=== PATIENT | female | born 1945 | race Caucasian/White ===

== ENCOUNTER 2020-05-10 | Outpatient (REF) | payer MEDICARE, SELFPAY | END 2020-05-10 00:01 | disposition home or self-care (01) | LOC: HO.VC | PROVIDERS: Visit Provider Internal Medicine | DX: Z23 Encounter for immunization (principal) | CPT/HCPCS: 0011A ==

== ENCOUNTER 2020-05-29 10:03 | Outpatient (REF) | payer MEDICARE, SELFPAY ==
[2020-05-29 10:46] LABS: MANUAL DIFF FLAG NO
[2020-05-29 10:58] LABS: Basophils Absolute Auto 0.1 X10*3/uL (0.0-0.2); Basophils Percent Auto 0.9 % (0-2); Eosinophils Absolute Auto 0.1 X10*3/uL (0.0-0.4); Eosinophils Percent Auto 1.4 % (0-4); Hematocrit 43.1 % (37-47); Hemoglobin 13.5 g/dl (12.0-16.0); Imm Gran Abs Auto 0.02 X10*3/uL (0.00-0.03); Imm Gran Pct Auto 0.3 % (0.0-0.4); Lymphocytes Absolute Auto 1.4 X10*3/uL (1.2-4.9); Lymphocytes Percent Auto 23.7 % (20-40); Mean Corpuscular HGB Conc 31.3 g/dl (31.0-35.0); Mean Corpuscular Hemoglobin 26.2 pg (27.0-33.0); Mean Corpuscular Volume 83.5 fL (80-98); Mean Platelet Volume 11.4 fL (9.4-12.3); Monocytes Absolute Auto 0.5 X10*3/uL (0.1-1.2); Monocytes Percent Auto 8.1 % (2-11); Neutrophils Absolute Auto 3.8 X10*3/uL (2.0-8.3); Neutrophils Percent Auto 65.6 % (45-73); Platelet Count 267 X10*3/uL (160-400); Red Blood Count 5.16 X10*6/uL (4.20-5.50); Red Cell Distribution Width 14.5 % (11.0-16.0); White Blood Count 5.8 X10*3/uL (4.8-10.8)
[2020-05-29 11:26] LABS: Alanine Aminotransferase 11 U/L (0-31); Alkaline Phosphatase 83 U/L (39-117); Anion Gap 14 (12-20); Aspartate Amino Transferase 15 U/L (5-31); Bilirubin Total 0.6 mg/dL (0.0-1.0); Blood Urea Nitrogen 19 mg/dL (9-16); Calcium 9.3 mg/dL (8.4-10.2); Carbon Dioxide 27 mmol/L (22-29); Chloride 106 mmol/L (96-108); Cholesterol 158 mg/dL; Estimated Glomerular Filt Rate > 60; Glucose Random 90 mg/dL (60-115); HDL Cholesterol 61 mg/dL; LDL Cholesterol Calculated 75 mg/dl; Potassium 4.5 mmol/L (3.3-5.1); Sodium 142 mmol/L (135-145); Total Protein 7.2 g/dL (6.5-8.0); Triglycerides 111 mg/dL
[2020-05-29 11:42] LABS: Thyroid Stimulating Hormone 0.39 uIU/mL (0.32-4.0); Vitamin D 25-OH Total 21.5 ng/mL (>30)
[2020-05-29 11:54] LABS: Glucose Urine UA NEG (NEG); Leukocyte Esterase Urine NEG (NEG); Nitrite Urine NEG (NEG); Urine Blood NEG (NEG); Urine Ketones NEG (NEG); Urine Protein NEG (NEG-TRACE)
[2020-05-29 12:00] LABS: Appearance Urine CLEAR; Color Urine YELLOW
[2020-05-29 12:19] LABS: Mucus Urine TRACE /LPF; RBC Urine 0 /HPF (0); Renal Epithelial Cells Urine TRACE /LPF; Squamous Epithelial Cell Urine TRACE /LPF; WBC Urine 0 /HPF (0-4)
[2020-06-02 04:35] LABS: Folate 7.8 ng/mL (> or = 4.0); Vitamin B12 295 pg/mL (200-900)
== END 2020-05-29 10:04 | disposition home or self-care (01) ==
LOC: HO.LAB 10:03
PROVIDERS: PCP Internal Medicine; Visit Provider Internal Medicine
DX: I10 Essential (primary) hypertension (principal); E78.00 Pure hypercholesterolemia, unspecified; R41.89 Other symptoms and signs involving cognitive functions and awareness
CPT/HCPCS: 36415; 80053; 80061; 81001; 82306; 82607; 82746; 84439; 84443; 85025

== ENCOUNTER 2020-06-06 | Outpatient (REF) | payer MEDICARE, SELFPAY | END 2020-06-06 00:01 | disposition home or self-care (01) | LOC: HO.VC | PROVIDERS: Visit Provider Internal Medicine | DX: Z23 Encounter for immunization (principal) | CPT/HCPCS: 0012A ==

== ENCOUNTER 2020-10-18 11:22 | Emergency (ER) | payer MEDICARE, SELFPAY ==
--- NOTE | ~2020-10-18 | CT_ITS ---
EXAMINATION: CT BRAIN AND CT CERVICAL SPINE WITHOUT CONTRAST. CLINICAL INFORMATION: Syncope head injury. COMPARISON: None TECHNIQUE: 5 mm thin axial and reformatted 2 mm thin sagittal and coronal images of brain were obtained. Subsequently axial 3 mm thin and reformatted 2 mm thin sagittal and coronal images of cervical spine were obtained. DLP 824. FINDINGS: BRAIN: There is no acute intra-axial, extra-axial bleed, masses or midline shift. There is a small lacunar infarction right basal ganglia similar to previous study. The lateral ventricles are symmetrical but enlarged. There is diffuse periarticular hypodensity in both cerebral hemispheres suggestive of chronic small vessel ischemic changes. CERVICAL SPINE: There is maintained cervical lordosis. The vertebral heights and alignment is normal. There is moderate ventral spondylosis dorsal spine. The craniovertebral junction and C1-C2 alignment is normal. The prevertebral soft tissues are normal. No acute fracture or dislocation seen. There is mild/moderate right C3-C4 and C4-C5 facet joint arthropathy and hypertrophy. Bilateral TM joints are symmetrical. The prevertebral and paravertebral soft tissues are normal. There is patent. There is bilateral apical pleural thickening and parenchymal scarring. There is centrilobular emphysema. The thyroid lobes are symmetrical and normal. Visualized salivary glands are symmetrical and normal. CT/CT head/brain wo con IMPRESSION: No acute intracranial process seen. There is no acute fracture, dislocation or subluxation in cervical spine. There are degenerative disc changes and facet joint arthropathy as described above. There is bilateral apical pleural thickening and parenchymal scarring with centrilobular emphysema..
--- NOTE | ~2020-10-18 | XR_ITS ---
EXAMINATION: XR CHEST CLINICAL INFORMATION: Syncope COMPARISON: Previous chest x-ray most recent April 2019 TECHNIQUE: Frontal view of the chest was obtained. FINDINGS: The cardiac and mediastinal contours are stable. The lungs are clear. There is no pleural effusion or pneumothorax. There are degenerative changes of the spine. XR/XR chest 1V IMPRESSION: No evidence for acute disease in the chest.
--- NOTE | ~2020-10-18 | CT_ITS ---
EXAMINATION: CT BRAIN AND CT CERVICAL SPINE WITHOUT CONTRAST. CLINICAL INFORMATION: Syncope head injury. COMPARISON: None TECHNIQUE: 5 mm thin axial and reformatted 2 mm thin sagittal and coronal images of brain were obtained. Subsequently axial 3 mm thin and reformatted 2 mm thin sagittal and coronal images of cervical spine were obtained. DLP 824. FINDINGS: BRAIN: There is no acute intra-axial, extra-axial bleed, masses or midline shift. There is a small lacunar infarction right basal ganglia similar to previous study. The lateral ventricles are symmetrical but enlarged. There is diffuse periarticular hypodensity in both cerebral hemispheres suggestive of chronic small vessel ischemic changes. CERVICAL SPINE: There is maintained cervical lordosis. The vertebral heights and alignment is normal. There is moderate ventral spondylosis dorsal spine. The craniovertebral junction and C1-C2 alignment is normal. The prevertebral soft tissues are normal. No acute fracture or dislocation seen. There is mild/moderate right C3-C4 and C4-C5 facet joint arthropathy and hypertrophy. Bilateral TM joints are symmetrical. The prevertebral and paravertebral soft tissues are normal. There is patent. There is bilateral apical pleural thickening and parenchymal scarring. There is centrilobular emphysema. The thyroid lobes are symmetrical and normal. Visualized salivary glands are symmetrical and normal. CT/CT cervical spine wo con IMPRESSION: No acute intracranial process seen. There is no acute fracture, dislocation or subluxation in cervical spine. There are degenerative disc changes and facet joint arthropathy as described above. There is bilateral apical pleural thickening and parenchymal scarring with centrilobular emphysema..
--- NOTE | 2020-10-18 11:25 | ED_ITS ---
HPI - Fall General Stated Complaint: FALL IN BR,HIT HEAD,NAUSEA,+COLLAR Time Seen by Provider: 10/18/20 11:25 Source: patient and EMS Mode of arrival: EMS Limitations: no limitations Related Data Home Medications Medication Instructions Recorded Confirmed cholecalciferol (vitamin D3) 1,250 1,250 mcg PO QWEEK 03/06/20 08/21/20 mcg (50,000 unit) capsule fluticasone propionate 50 2 spray INTRANASAL DAILY 03/06/20 08/21/20 mcg/actuation nasal spray,suspension Previous Rx's Medication Instructions Recorded omeprazole 20 mg capsule,delayed 20 mg PO DAILY #90 cap 01/17/20 release budesonide-formoterol HFA 160 2 puff INHALATION BID #10.2 g 03/06/20 mcg-4.5 mcg/actuation aerosol inhaler albuterol sulfate 90 mcg/actuation 2 puff PO Q6H PRN #8.5 g 03/21/20 aerosol inhaler levothyroxine 112 mcg tablet 112 mcg PO DAILY 90 Days #90 tab 04/25/20 sertraline 50 mg tablet 50 mg PO DAILY #90 tab 04/25/20 donepezil 10 mg tablet 10 mg PO BEDTIME #30 tab 06/15/20 amlodipine 10 mg tablet 10 mg PO DAILY #90 tab 07/31/20 Allergies Allergy/AdvReac Type Severity Reaction Status Date / Time pollen extracts [POLLEN] Allergy Mild RUNNY Unverified 12/23/19 14:48 NOSE, SNEEZING, ITCHY EYES amoxicillin [AMOXICILLIN] Allergy Unknown STOMACH Verified 02/25/20 14:12 ISSUES PMFSH Past Medical History Medical History (Updated 08/21/20 @ 10:40 by Shane Nelson MD) Anxiety and depression Ford's esophagus Bile salt-induced diarrhea COPD (chronic obstructive pulmonary disease) Cutaneous lupus erythematosus GERD (gastroesophageal reflux disease) Hypercholesterolemia Hypertension Hypothyroid Osteoarthritis Vitamin D deficiency Surgical History (Updated 02/25/20 @ 14:14 by SERG Liu) History of cataract surgery History of cholecystectomy History of ear surgery History of eye surgery History of rectal surgery Family History Family History (Updated 02/25/20 @ 14:15 by SERG Liu) Father Lymphoma Lung cancer Mother Hypertension Diabetes Sister Brain cancer Social History Social History (Updated 05/22/20 @ 10:09 by Sheryl Prince [facility]) Alcohol intake: current Discharge Plan Discharge Prescriptions: No Action omeprazole 20 mg capsule,delayed release(DR/EC) 20 mg PO DAILY Qty: 90 RF: 1 albuterol sulfate [Ventolin HFA] 90 mcg/actuation HFA aerosol inhaler 2 puff PO Q6H PRN (Reason: shortness of breath or wheezing) Qty: 8.5 RF: 0 sertraline 50 mg tablet 50 mg PO DAILY Qty: 90 RF: 3 levothyroxine 112 mcg tablet 112 mcg PO DAILY 90 Days Qty: 90 RF: 3 donepezil 10 mg tablet 10 mg PO BEDTIME Qty: 30 RF: 12 amlodipine 10 mg tablet 10 mg PO DAILY Qty: 90 RF: 3 cholecalciferol (vitamin D3) 1,250 mcg (50,000 unit) capsule 1,250 mcg PO QWEEK RF: 0 fluticasone propionate [Allergy Relief (fluticasone)] 50 mcg/actuation spray,suspension 2 spray intranasal DAILY RF: 0 budesonide-formoterol [Symbicort] 160-4.5 mcg/actuation HFA aerosol inhaler 2 puff inhalation BID Qty: 10.2 RF: 8
--- NOTE | 2020-10-18 11:29 | ECG_ITS ---
Test Reason : FALL Blood Pressure : / mmHG Vent. Rate : 056 BPM Atrial Rate : 056 BPM P-R Int : 166 ms QRS Dur : 080 ms QT Int : 448 ms P-R-T Axes : 076 071 079 degrees QTc Int : 432 ms Sinus bradycardia Otherwise normal ECG When compared with ECG of 02-OCT-2017 15:47, No significant change was found Referred By: Josef Smith Electronically Signed By:Bang Kitchen
[2020-10-18 11:30] VITALS: BP 166/72; PULSE 60; O2SAT 96
--- NOTE | 2020-10-18 11:30 | ED.SYNCOPE ---
HPI - Syncope General Chief Complaint: Fall Stated Complaint: FALL IN BR,HIT HEAD,NAUSEA,+COLLAR Time Seen by Provider: 10/18/20 11:25 Source: patient and EMS Mode of arrival: EMS Limitations: no limitations History of Present Illness HPI narrative: This is a 75-year-old female came in by ambulance for evaluation of a syncopal episode in the bathroom. Patient was sitting on the toilet seat then having loose stool bowel movements lately, after she finished her bowel movement tried to get up next thing she remembers she was on the floor hitting her head. Patient declined any dizziness feeling or lightheadedness before she fell, complaining of hematoma on the left side of her head, and neck pain. Related Data Home Medications Medication Instructions Recorded Confirmed cholecalciferol (vitamin D3) 1,250 1,250 mcg PO QWEEK 03/06/20 08/21/20 mcg (50,000 unit) capsule fluticasone propionate 50 2 spray INTRANASAL DAILY 03/06/20 08/21/20 mcg/actuation nasal spray,suspension Previous Rx's Medication Instructions Recorded omeprazole 20 mg capsule,delayed 20 mg PO DAILY #90 cap 01/17/20 release budesonide-formoterol HFA 160 2 puff INHALATION BID #10.2 g 03/06/20 mcg-4.5 mcg/actuation aerosol inhaler albuterol sulfate 90 mcg/actuation 2 puff PO Q6H PRN #8.5 g 03/21/20 aerosol inhaler levothyroxine 112 mcg tablet 112 mcg PO DAILY 90 Days #90 tab 04/25/20 sertraline 50 mg tablet 50 mg PO DAILY #90 tab 04/25/20 donepezil 10 mg tablet 10 mg PO BEDTIME #30 tab 06/15/20 amlodipine 10 mg tablet 10 mg PO DAILY #90 tab 07/31/20 Allergies Allergy/AdvReac Type Severity Reaction Status Date / Time pollen extracts [POLLEN] Allergy Mild RUNNY Unverified 12/23/19 14:48 NOSE, SNEEZING, ITCHY EYES amoxicillin [AMOXICILLIN] Allergy Unknown STOMACH Verified 02/25/20 14:12 ISSUES Review of Systems Review of Systems: All other systems are reviewed and are negative Constitutional: Reports as per HPI and Reports no additional constitutional complaints Eyes: Reports as per HPI and Reports no additional eye complaints Reports system reviewed and no additional complaints, except as documented Cardiovascular: Reports as per HPI and Reports no additional cardiovascular complaints Respiratory: Reports as per HPI and Reports no additional respiratory complaints Gastrointestinal: Reports as per HPI and Reports no additional gastrointestinal complaints Genitourinary: Reports no additional female genitourinary complaints Musculoskeletal: Reports no additional musculoskeletal complaints Skin/Breast: Reports system reviewed and no additional complaints, except as docu Psychiatric: Reports no additional psychiatric complaints Endocrine: Reports no additional endocrine complaints Hematologic/Lymphatic: Reports no additional hematologic/lymphatic complaints Allergic/Immunologic: Reports no additional allergic/immunologic complaints Reports system reviewed and no additional complaints, except as documented and Reports Abnormal speech present [facility] Past Medical History Medical History Anxiety and depression Ford's esophagus Bile salt-induced diarrhea COPD (chronic obstructive pulmonary disease) Cutaneous lupus erythematosus GERD (gastroesophageal reflux disease) Hypercholesterolemia Hypertension Hypothyroid Osteoarthritis Vitamin D deficiency Surgical History History of cataract surgery History of cholecystectomy History of ear surgery History of eye surgery History of rectal surgery Family History Family History Father Lymphoma Lung cancer Mother Hypertension Diabetes Sister Brain cancer Social History Social History Alcohol intake: current Advance Directives: Yes Advance Directives Information Provided: Yes Advance Directives on File: No Physical Exam Vital Signs: Vital Signs: Last Vital Signs Temp 97.9 F 10/18/20 11:32 Pulse 72 10/18/20 12:00 Resp 16 10/18/20 11:32 BP 162/62 H 10/18/20 12:00 Pulse Ox 100 10/18/20 12:00 Body Mass Index 21.9 Vital signs have been reviewed as appeared to be correct. Blood pressure normal. Heart rate normal. Respiration rate normal. Temperature normal. Oxygen saturation normal. Appearance: Alert. Oriented X3. No acute distress. Head: Normal external exam. Normocephalic. Small hematoma in the left parietal area with no bleeding or laceration.. No [place] signs noted. No raccoon eyes noted Eyes: PERRLA. EOMI. Conjunctiva and sclera normal. Eyelids normal. ENT: TM's Normal. Pharynx normal. Uvula midline. Moist mucous membranes. No trismus noted. No drooling noted. No muffled voice noted. Neck: Normal inspection. Mild tenderness in the mid neck, no step-off, no deformity. CVS: Normal heart rate and rhythm. Heart sound normal. No murmurs noted. Pulses normal throughout. Respiratory: No respiratory distress. Painless inspiration. Breath sounds normal. No wheezes/rales/rhonchi noted. Chest nontender. No accessory muscle usage noted or decreased air movement noted. Abdomen: Soft and nontender. Bowel sounds normal in all 4 quadrants. No distention noted. No organomegaly noted. No visible injury noted. Back: No CVA tenderness. Full range of motion noted. Skin: Skin warm and dry. Normal skin color. Normal skin turgor. No rashes/lesions/lacerations noted. Extremities: No lower extremity edema. Extremities exhibit normal range of motion. Extremities nontender. Neuro: Oriented X 3. No motor deficit. No sensory deficit. Reflexes normal. Course Course Course Narrative: Assessment and plan. 75-year-old female came in after had vasovagal syncopal episode while she was in the bathroom on the toilet seat trying to get up. Patient has unremarkable EKG, labs, CT head, CT C-spine, chest x-ray. MDM - Syncope Lab Data Attestation: I reviewed the patient's lab results. Result diagrams: 10/18/20 12:15 10/18/20 12:15 Labs: Lab Results 10/18/20 10/18/20 10/18/20 Range/Units 12:15 12:15 12:15 WBC 7.7 (4.8-10.8) X10*3/uL RBC 5.20 (4.20-5.50) X10*6/uL Hgb 13.2 (12.0-16.0) g/dl Hct 42.5 (37-47) % MCV 81.7 (80-98) fL MCH 25.4 L (27.0-33.0) pg MCHC 31.1 (31.0-35.0) g/dl RDW 14.9 (11.0-16.0) % Plt Count 302 (160-400) X10*3/uL MPV 10.8 (9.4-12.3) fL Immature Gran % (Auto) 0.4 (0.0-0.4) % Neut % (Auto) 78.6 H (45-73) % Lymph % (Auto) 14.3 L (20-40) % [place] % (Auto) 5.9 (2-11) % Eos % (Auto) 0.4 (0-4) % Baso % (Auto) 0.4 (0-2) % Lymph # (Auto) 1.1 L (1.2-4.9) X10*3/uL [place] # (Auto) 0.5 (0.1-1.2) X10*3/uL Eos # (Auto) 0.0 (0.0-0.4) X10*3/uL Baso # (Auto) 0.0 (0.0-0.2) X10*3/uL Abs Immat Gran (auto) 0.03 (0.00-0.03) X10*3/uL Absolute Neuts (auto) 6.1 (2.0-8.3) X10*3/uL Absolute Nucleated RBC 0.000 (0.0-0.012) X10*3/uL Nucleated RBC % (auto) 0.0 (0.0-0.2) /100WBC Sodium 142 (135-145) mmol/L Potassium 3.8 (3.3-5.1) mmol/L Chloride 106 (96-108) mmol/L Carbon Dioxide 26 (22-29) mmol/L Anion Gap 14 (12-20) BUN 12 (9-16) mg/dL Creatinine 0.74 (0.5-1.4) mg/dL Estim Creat Clear Calc 51.1 Estimated GFR > 60 Random Glucose 100 (60-115) mg/dL Calcium 9.7 (8.4-10.2) mg/dL Total Bilirubin 0.4 (0.0-1.0) mg/dL Direct Bilirubin 0.2 (0.0-0.5) mg/dL AST 15 (5-31) U/L ALT 7 (0-31) U/L Alkaline Phosphatase 106 D (39-117) U/L Troponin I High Sens < 3.5 (<3.5-17.0) ng/L B-Natriuretic Peptide 66 (<100) pg/mL Total Protein 7.6 (6.5-8.0) g/dL Albumin 4.0 (3.5-5.0) g/dL Lipase 45 (8-78) U/L Urine Color Urine Appearance Urine pH (5.0-8.0) Ur Specific [place] (1.005-1.025) Urine Protein (NEG-TRACE) MG/DL Urine Glucose (UA) (NEG) MG/DL Urine Ketones (NEG) MG/DL Urine Blood (NEG) Urine Nitrite (NEG) Ur Leukocyte Esterase (NEG) Urine RBC (0) /HPF Urine WBC (0-4) /HPF Ur Squamous Epith Cells /LPF Urine Bacteria /LPF 10/18/20 Range/Units 12:15 WBC (4.8-10.8) X10*3/uL RBC (4.20-5.50) X10*6/uL Hgb (12.0-16.0) g/dl Hct (37-47) % MCV (80-98) fL MCH (27.0-33.0) pg MCHC (31.0-35.0) g/dl RDW (11.0-16.0) % Plt Count (160-400) X10*3/uL MPV (9.4-12.3) fL Immature Gran % (Auto) (0.0-0.4) % Neut % (Auto) (45-73) % Lymph % (Auto) (20-40) % [place] % (Auto) (2-11) % Eos % (Auto) (0-4) % Baso % (Auto) (0-2) % Lymph # (Auto) (1.2-4.9) X10*3/uL [place] # (Auto) (0.1-1.2) X10*3/uL Eos # (Auto) (0.0-0.4) X10*3/uL Baso # (Auto) (0.0-0.2) X10*3/uL Abs Immat Gran (auto) (0.00-0.03) X10*3/uL Absolute Neuts (auto) (2.0-8.3) X10*3/uL Absolute Nucleated RBC (0.0-0.012) X10*3/uL Nucleated RBC % (auto) (0.0-0.2) /100WBC Sodium (135-145) mmol/L Potassium (3.3-5.1) mmol/L Chloride (96-108) mmol/L Carbon Dioxide (22-29) mmol/L Anion Gap (12-20) BUN (9-16) mg/dL Creatinine (0.5-1.4) mg/dL Estim Creat Clear Calc Estimated GFR Random Glucose (60-115) mg/dL Calcium (8.4-10.2) mg/dL Total Bilirubin (0.0-1.0) mg/dL Direct Bilirubin (0.0-0.5) mg/dL AST (5-31) U/L ALT (0-31) U/L Alkaline Phosphatase (39-117) U/L Troponin I High Sens (<3.5-17.0) ng/L B-Natriuretic Peptide (<100) pg/mL Total Protein (6.5-8.0) g/dL Albumin (3.5-5.0) g/dL Lipase (8-78) U/L Urine Color YELLOW Urine Appearance CLEAR Urine pH 6.0 (5.0-8.0) Ur Specific [place] 1.020 (1.005-1.025) Urine Protein TRACE (NEG-TRACE) MG/DL Urine Glucose (UA) NEG (NEG) MG/DL Urine Ketones NEG (NEG) MG/DL Urine Blood NEG (NEG) Urine Nitrite NEG (NEG) Ur Leukocyte Esterase TRACE H (NEG) Urine RBC 0 (0) /HPF Urine WBC 0-2 (0-4) /HPF Ur Squamous Epith Cells TRACE /LPF Urine Bacteria NONE /LPF Imaging Data Chest x-ray: Radiologist's impression: No evidence for acute disease in the chest. CT scan - head: Radiologist's impression: No acute intracranial process seen. Cervical spine: Radiologist's impression: There is no acute fracture, dislocation or subluxation in cervical spine. There are degenerative disc changes and facet joint arthropathy as described above. There is bilateral apical pleural thickening and parenchymal scarring with centrilobular emphysema.. ECG Data Interpretation: Normal sinus rhythm at 56 beats per minutes, normal axis deviation, normal intervals. No ST-T changes. Discharge Plan Discharge Clinical Impression: Syncope, vasovagal Patient Disposition: Home, Self-Care Instructions: Syncope in Older Adults (ED) Prescriptions: No Action omeprazole 20 mg capsule,delayed release(DR/EC) 20 mg PO DAILY Qty: 90 RF: 1 albuterol sulfate [Ventolin HFA] 90 mcg/actuation HFA aerosol inhaler 2 puff PO Q6H PRN (Reason: shortness of breath or wheezing) Qty: 8.5 RF: 0 sertraline 50 mg tablet 50 mg PO DAILY Qty: 90 RF: 3 levothyroxine 112 mcg tablet 112 mcg PO DAILY 90 Days Qty: 90 RF: 3 donepezil 10 mg tablet 10 mg PO BEDTIME Qty: 30 RF: 12 amlodipine 10 mg tablet 10 mg PO DAILY Qty: 90 RF: 3 cholecalciferol (vitamin D3) 1,250 mcg (50,000 unit) capsule 1,250 mcg PO QWEEK RF: 0 fluticasone propionate [Allergy Relief (fluticasone)] 50 mcg/actuation spray,suspension 2 spray intranasal DAILY RF: 0 budesonide-formoterol [Symbicort] 160-4.5 mcg/actuation HFA aerosol inhaler 2 puff inhalation BID Qty: 10.2 RF: 8 Referrals: Po,Shane Miller MD [Primary Care Provider] - 2 days
[2020-10-18 11:32] VITALS: BP 180/73; PULSE 54; RESP 16; TEMP 36.6; O2SAT 99; BMI 21.9
[2020-10-18 12:00] VITALS: BP 162/62; PULSE 72; O2SAT 100
[2020-10-18 12:25] LABS: MANUAL DIFF FLAG NO
[2020-10-18 12:27] LABS: Basophils Percent Auto 0.4 % (0-2); Eosinophils Percent Auto 0.4 % (0-4); Hematocrit 42.5 % (37-47); Hemoglobin 13.2 g/dl (12.0-16.0); Imm Gran Abs Auto 0.03 X10*3/uL (0.00-0.03); Imm Gran Pct Auto 0.4 % (0.0-0.4); Lymphocytes Absolute Auto 1.1 X10*3/uL (1.2-4.9); Lymphocytes Percent Auto 14.3 % (20-40); Mean Corpuscular HGB Conc 31.1 g/dl (31.0-35.0); Mean Corpuscular Hemoglobin 25.4 pg (27.0-33.0); Mean Corpuscular Volume 81.7 fL (80-98); Mean Platelet Volume 10.8 fL (9.4-12.3); Monocytes Absolute Auto 0.5 X10*3/uL (0.1-1.2); Monocytes Percent Auto 5.9 % (2-11); Neutrophils Absolute Auto 6.1 X10*3/uL (2.0-8.3); Neutrophils Percent Auto 78.6 % (45-73); Platelet Count 302 X10*3/uL (160-400); Red Cell Distribution Width 14.9 % (11.0-16.0); White Blood Count 7.7 X10*3/uL (4.8-10.8)
[2020-10-18 12:30] LABS: Glucose Urine UA NEG (NEG); Leukocyte Esterase Urine TRACE (NEG); Nitrite Urine NEG (NEG); UACC Culture Trigger YES; Urine Blood NEG (NEG); Urine Ketones NEG (NEG); Urine Protein TRACE MG/DL (NEG-TRACE)
[2020-10-18 12:33] LABS: Appearance Urine CLEAR; Color Urine YELLOW
[2020-10-18 12:40] LABS: RBC Urine 0 /HPF (0); Squamous Epithelial Cell Urine TRACE /LPF; WBC Urine 0-2 /HPF (0-4)
[2020-10-18 13:13] LABS: Alanine Aminotransferase 7 U/L (0-31); Alkaline Phosphatase 106 U/L (39-117); Anion Gap 14 (12-20); Aspartate Amino Transferase 15 U/L (5-31); Bilirubin Direct 0.2 mg/dL (0.0-0.5); Bilirubin Total 0.4 mg/dL (0.0-1.0); Blood Urea Nitrogen 12 mg/dL (9-16); Calcium 9.7 mg/dL (8.4-10.2); Carbon Dioxide 26 mmol/L (22-29); Chloride 106 mmol/L (96-108); Creatinine Clr Calc Pharmacy 51.1; Estimated Glomerular Filt Rate > 60; Glucose Random 100 mg/dL (60-115); Lipase 45 U/L (8-78); Potassium 3.8 mmol/L (3.3-5.1); Sodium 142 mmol/L (135-145); Total Protein 7.6 g/dL (6.5-8.0)
[2020-10-18 13:17] LABS: B Type Natriuretic Peptide 66 pg/mL (<100); Troponin-I High Sensitivity < 3.5 ng/L (<3.5-17.0)
[2020-10-18 15:20] VITALS: BP 157/71; PULSE 62; RESP 16; TEMP 36.5; O2SAT 100
== END 2020-10-18 15:22 | disposition home or self-care (01) ==
PROVIDERS: Emergency Provider Emergency Medicine; PCP Internal Medicine
DX: R55 Syncope and collapse (principal); G44.309 Post-traumatic headache, unspecified, not intractable; M54.2 Cervicalgia; J44.1 Chronic obstructive pulmonary disease with (acute) exacerbation; Z79.899 Other long term (current) drug therapy
CPT/HCPCS: 36415; 70450; 71045; 72125; 80048; 80076; 81001; 81003; 83690; 83880; 84484; 85025; 87086; 93005; 99284

== ENCOUNTER 2020-11-02 13:00 | Outpatient (REF) | payer MEDICARE, SELFPAY | END 2020-11-02 13:01 | disposition home or self-care (01) | LOC: HO.LNP 13:00 | PROVIDERS: Visit Provider Physician Assistant | DX: R10.9 Unspecified abdominal pain (principal); K52.9 Noninfective gastroenteritis and colitis, unspecified | CPT/HCPCS: 87045; 87046; 87329; 87338 ==

== ENCOUNTER 2020-11-06 07:43 | Outpatient (REF) | payer MEDICARE, SELFPAY ==
--- NOTE | ~2020-11-06 | CT_ITS ---
EXAMINATION: CT ABDOMEN AND PELVIS WITH CONTRAST CLINICAL INFORMATION: Gastroenteritis and colitis. COMPARISON: Previous CT of the abdomen and pelvis July 2017. TECHNIQUE: Multidetector volumetric images were obtained from the superior aspect of the liver through the pubic symphysis following administration 85 mL of Omnipaque 350 intravenous contrast. Sagittal and coronal reformatted images were obtained on the technologist's workstation. Oral contrast: Yes This CT examination was performed using dose optimization techniques as appropriate, variously including the following: *Automated exposure control *Adjustment of mA and/or kV according to patient size (this includes techniques or standardized protocols for targeted exams where dose is matched to indication/reason for exam; i.e. extremities or head) *Use of iterative reconstruction technique DLP: 288 mGy-cm. FINDINGS: LUNG BASES: The visualized lung bases are unremarkable. LIVER, GALLBLADDER, AND BILIARY TREE: The gallbladder has been removed. There is intrahepatic and extrahepatic biliary duct dilatation. Common bile duct measures up to 1.3 cm. This is unchanged from previous exam. The liver is otherwise unremarkable. PANCREAS: Unremarkable. SPLEEN: Unremarkable. ADRENAL GLANDS: Unremarkable. KIDNEYS AND URETERS: There are small bilateral low-attenuation renal lesions probably representing cysts. The largest measures 1 cm in the mid right kidney. Kidneys are otherwise unremarkable. BLADDER: Unremarkable. GASTROINTESTINAL TRACT: There is wall thickening and mild dilatation of the proximal small bowel. The bowel does not appear dilated. No mass is seen. There is a small bowel diverticulum, for example coronal reconstructed image 20. There is question of mild wall thickening of the sigmoid colon versus changes due to underdistention as well. The appendix is not seen. The stomach is collapsed. There may be a small hiatal hernia. ABDOMINAL WALL: No significant hernia is appreciated. LYMPH NODES: Normal. VASCULAR: There is evidence of atherosclerotic disease. PELVIC VISCERA: The uterus is unremarkable. There are bilateral adnexal cysts measuring 4.5 x 3.5 cm on the right and 7.3 x 5.3 cm on the left. This does not appear appreciably changed from July 2017 exam. OSSEOUS STRUCTURES: Unremarkable. CT/CT abdomen pelvis w con IMPRESSION: Mild wall thickening and dilatation of the proximal small bowel suggestive of enteritis. Question mild wall thickening of the sigmoid colon. Post cholecystectomy with stable intrahepatic and extrahepatic biliary duct dilatation from 2018. Bilateral adnexal cysts stable from 2018. Probable small bilateral renal cysts.
[2020-11-06] MEDS: iohexoL 350 MG/ML 100 ML INFUS..BTL IV (10:43)
== END 2020-11-06 07:44 | disposition home or self-care (01) ==
LOC: HO.CT 07:43
PROVIDERS: Visit Provider Internal Medicine
DX: K52.9 Noninfective gastroenteritis and colitis, unspecified (principal)
CPT/HCPCS: 74177; Q9967

== ENCOUNTER 2020-12-07 12:19 | Outpatient (REF) | payer MEDICARE, SELFPAY ==
[2020-12-07 12:50] LABS: MANUAL DIFF FLAG NO
[2020-12-07 12:56] LABS: Basophils Percent Auto 0.9 % (0-2); Eosinophils Absolute Auto 0.1 X10*3/uL (0.0-0.4); Eosinophils Percent Auto 1.1 % (0-4); Hematocrit 36.2 % (37-47); Hemoglobin 11.2 g/dl (12.0-16.0); Imm Gran Abs Auto 0.02 X10*3/uL (0.00-0.03); Imm Gran Pct Auto 0.4 % (0.0-0.4); Lymphocytes Absolute Auto 1.1 X10*3/uL (1.2-4.9); Lymphocytes Percent Auto 22.6 % (20-40); Mean Corpuscular HGB Conc 30.9 g/dl (31.0-35.0); Mean Corpuscular Hemoglobin 25.1 pg (27.0-33.0); Mean Platelet Volume 11.9 fL (9.4-12.3); Monocytes Absolute Auto 0.4 X10*3/uL (0.1-1.2); Neutrophils Absolute Auto 3.1 X10*3/uL (2.0-8.3); Platelet Count 279 X10*3/uL (160-400); Red Blood Count 4.47 X10*6/uL (4.20-5.50); Red Cell Distribution Width 15.7 % (11.0-16.0); White Blood Count 4.7 X10*3/uL (4.8-10.8)
[2020-12-07 13:32] LABS: Anion Gap 11 (12-20); Blood Urea Nitrogen 14 mg/dL (9-16); C Reactive Protein 0.11 mg/dL (< or = 0.50); Calcium 9.7 mg/dL (8.4-10.2); Carbon Dioxide 26 mmol/L (22-29); Chloride 111 mmol/L (96-108); Estimated Glomerular Filt Rate > 60; Glucose Random 88 mg/dL (60-115); Potassium 4.3 mmol/L (3.3-5.1); Sodium 144 mmol/L (135-145)
[2020-12-07 13:47] LABS: Erythrocyte Sedimentation Rate 19 MM/HR (0-20)
[2020-12-07 13:53] LABS: T4 Thyroxine 6.2 ug/dL (4.5-12.0); Thyroid Stimulating Hormone 3.27 uIU/mL (0.32-4.0)
[2020-12-08 13:31] LABS: Immunoglobulin A 941 mg/dL (70-320)
[2020-12-08 21:36] LABS: Gliadin Deamidated IgA Ab 9 Units; Gliadin Deamidated IgG Ab 1 Units
[2020-12-08 21:41] LABS: Transglutaminase Ab IgG 1 U/mL; Transglutaminase IgA 1 U/mL
[2020-12-10 22:56] LABS: Endomysial IgA Antibody Negative (Negative)
== END 2020-12-07 12:20 | disposition home or self-care (01) ==
LOC: HO.LAB 12:19
PROVIDERS: PCP Internal Medicine; Visit Provider Internal Medicine
DX: R19.7 Diarrhea, unspecified (principal); R63.4 Abnormal weight loss
CPT/HCPCS: 36415; 80048; 82784; 83516; 84436; 84443; 85025; 85652; 86140; 86255; 86256

== ENCOUNTER 2020-12-08 14:40 | Outpatient (REF) | payer MEDICARE, SELFPAY ==
[2020-12-08 15:43] LABS: CDiff Gene PCR NEGATIVE (Negative)
[2020-12-08 15:47] LABS: Leukocytes Stool Qualitative NEGATIVE (NEGATIVE)
== END 2020-12-08 14:41 | disposition home or self-care (01) ==
LOC: HO.LNP 14:40
PROVIDERS: Visit Provider Internal Medicine
DX: R19.7 Diarrhea, unspecified (principal); R63.4 Abnormal weight loss
CPT/HCPCS: 87177; 87209; 87329; 87493; 89055

== ENCOUNTER 2020-12-17 19:37 | Emergency (ER) | payer MEDICARE, SELFPAY ==
[2020-12-17 19:49] VITALS: BP 140/80; PULSE 90; O2SAT 94; BMI 24.0
[2020-12-17 21:16] VITALS: BP 165/53; PULSE 83; RESP 18; O2SAT 95
--- NOTE | 2020-12-17 21:21 | ED.GENADULT ---
HPI - General Adult General Chief complaint: Nausea/Vomiting/Diarrhea Stated complaint: NAUSEA, VOMITING Time Seen by Provider: 12/17/20 21:21 Source: patient Mode of arrival: EMS History of Present Illness HPI narrative: 75-year-old female with history of COPD and hypertension presents via EMS after prepping for her colonoscopy tomorrow and states that she became cool, clammy, and felt like she is going to pass out and called the ambulance. Otherwise, she denies any fever, chills is states that she feels much better at this time and denies being nauseous any longer. Related Data Home Medications Medication Instructions Recorded Confirmed cholecalciferol (vitamin D3) 1,250 1,250 mcg PO QWEEK 03/06/20 10/23/20 mcg (50,000 unit) capsule fluticasone propionate 50 2 spray INTRANASAL DAILY 03/06/20 10/23/20 mcg/actuation nasal spray,suspension (Allergy Relief (fluticasone)) Previous Rx's Medication Instructions Recorded omeprazole 20 mg capsule,delayed 20 mg PO DAILY #90 cap 01/17/20 release budesonide-formoterol HFA 160 2 puff INHALATION BID #10.2 g 03/06/20 mcg-4.5 mcg/actuation aerosol inhaler (Symbicort) albuterol sulfate 90 mcg/actuation 2 puff PO Q6H PRN #8.5 g 03/21/20 aerosol inhaler (Ventolin HFA) levothyroxine 112 mcg tablet 112 mcg PO DAILY 90 Days #90 tab 04/25/20 sertraline 50 mg tablet 50 mg PO DAILY #90 tab 04/25/20 donepezil 10 mg tablet 10 mg PO BEDTIME #30 tab 06/15/20 amlodipine 10 mg tablet 10 mg PO DAILY #90 tab 07/31/20 omeprazole 20 mg capsule,delayed 20 mg PO BID 30 Days #60 cap 10/23/20 release prochlorperazine maleate 5 mg 5 mg PO BID 10 Days #20 tab 10/23/20 tablet simvastatin 20 mg tablet 20 mg PO BEDTIME 90 Days #90 tab 10/25/20 bismuth subsalicylate 262 mg 2 tab PO QID 10 Days #80 tab 11/07/20 chewable tablet metronidazole 250 mg tablet 250 mg PO QID 10 Days #40 tab 11/07/20 tetracycline 500 mg capsule 500 mg PO Q6H 10 Days #40 cap 11/07/20 Allergies Allergy/AdvReac Type Severity Reaction Status Date / Time pollen extracts [POLLEN] Allergy Mild RUNNY Verified 10/23/20 11:50 NOSE, SNEEZING, ITCHY EYES amoxicillin [AMOXICILLIN] Allergy Unknown STOMACH Verified 10/23/20 11:50 ISSUES Review of Systems Review of Systems: Pertinent positives and negatives As stated in HPI 10 point review of systems is otherwise negative. PMFSH Past Medical History Medical History Anxiety and depression Ford's esophagus Bile salt-induced diarrhea COPD (chronic obstructive pulmonary disease) Cutaneous lupus erythematosus GERD (gastroesophageal reflux disease) Hypercholesterolemia Hypertension Hypothyroid Osteoarthritis Vitamin D deficiency Surgical History History of cataract surgery History of cholecystectomy History of ear surgery History of eye surgery History of rectal surgery Family History Family History Father Lymphoma Lung cancer Mother Hypertension Diabetes Sister Brain cancer Social History Social History Alcohol intake: current Patient Tobacco Use Status: Never used Tobacco e-Cigarette/Vaping Use: Never Used Second Hand Smoke Exposure: No Advance Directives: No Advance Directives Information Provided: Yes service: No Current occupational status: retired Physical Exam Vital Signs: Vital Signs: Last Vital Signs Pulse 83 12/17/20 21:16 Resp 18 12/17/20 21:16 BP 165/53 H 12/17/20 21:16 Pulse Ox 95 12/17/20 21:16 Body Mass Index 24.0 VITAL SIGNS: Reviewed. GENERAL: Well developed, well nourished, in no acute distress. HEAD: Normocephalic/atraumatic EYES: PERRLA, EOMI intact without pain, no nystagmus OROPHARYNX: no oral lesions noted, posterior pharynx clear LUNGS: Normal breath sounds. No adventitious sounds or accessory muscle use. SpO2<95> CARDIOVASCULAR: Regular rate and rhythm without noted murmurs ABDOMEN: Soft, non-tender, non-distended with bowel sounds. SKIN: Inspection of the skin reveals no rashes NEUROLOGIC: Alert and oriented x 4. Strength and sensation to light touch were grossly intact x 4. Course Course Course Narrative: [age] year old female with history and clinical presentation consistent with vasovagal with near syncopal episode likely secondary to colonoscopy prep. Will obtain basic labs, EKG to ensure no other etiologies as well as providing 1 L of IV fluids and then likely discharge. Review of all investigations without acute findings to suggest infection, anemia, arrhythmia and patient now no longer nauseated and tolerating oral intake. She will be discharged home with instructions to continue with clear liquid intake and follow-up with her scheduled colonoscopy in the morning. Medical Decision Making Lab Data Result diagrams: 12/17/20 22:04 12/17/20 22:04 Labs: Lab Results 12/17/20 12/17/20 Range/Units 22:04 22:04 WBC 8.1 (4.8-10.8) X10*3/uL RBC 4.52 (4.20-5.50) X10*6/uL Hgb 11.4 L (12.0-16.0) g/dl Hct 35.7 L (37-47) % MCV 79.0 L (80-98) fL MCH 25.2 L (27.0-33.0) pg MCHC 31.9 (31.0-35.0) g/dl RDW 15.3 (11.0-16.0) % Plt Count 229 (160-400) X10*3/uL MPV 11.3 (9.4-12.3) fL Immature Gran % (Auto) 0.2 (0.0-0.4) % Neut % (Auto) 80.4 H (45-73) % Lymph % (Auto) 13.0 L (20-40) % [place] % (Auto) 5.8 (2-11) % Eos % (Auto) 0.2 (0-4) % Baso % (Auto) 0.4 (0-2) % Lymph # (Auto) 1.1 L (1.2-4.9) X10*3/uL [place] # (Auto) 0.5 (0.1-1.2) X10*3/uL Eos # (Auto) 0.0 (0.0-0.4) X10*3/uL Baso # (Auto) 0.0 (0.0-0.2) X10*3/uL Abs Immat Gran (auto) 0.02 (0.00-0.03) X10*3/uL Absolute Neuts (auto) 6.5 (2.0-8.3) X10*3/uL Absolute Nucleated RBC 0.000 (0.0-0.012) X10*3/uL Nucleated RBC % (auto) 0.0 (0.0-0.2) /100WBC Sodium 141 (135-145) mmol/L Potassium 4.5 (3.3-5.1) mmol/L Chloride 109 H (96-108) mmol/L Carbon Dioxide 22 (22-29) mmol/L Anion Gap 15 (12-20) BUN 16 (9-16) mg/dL Creatinine 0.76 (0.5-1.4) mg/dL Estim Creat Clear Calc 49.7 Estimated GFR > 60 Random Glucose 85 (60-115) mg/dL Calcium 9.8 (8.4-10.2) mg/dL Total Bilirubin 0.4 (0.0-1.0) mg/dL AST 15 (5-31) U/L ALT 11 (0-31) U/L Alkaline Phosphatase 83 D (39-117) U/L Total Protein 7.5 (6.5-8.0) g/dL Albumin 4.1 (3.5-5.0) g/dL ECG Data Attestation: I personally reviewed and interpreted this ECG as follows: Prior ECG tracings: available for review (10/18/2020 no acute changes on comparison) Interpretation: Normal sinus rhythm, HR -60, no STEMI, VT/QRS/QTC are within normal limits. Discharge Plan Discharge Clinical Impression: Vasovagal near syncope Patient Disposition: Home, Self-Care Instructions: Near Syncope (ED) Additional Instructions: 1. Resume all home medications as prescribed and directed. 2. Continue to drink clear liquids as per colonoscopy protocol, try to reduce activity level until after your colonoscopy. 3. Recommend continuing with your planned colonoscopy. Return to the ER should you experience any acute change. Prescriptions: No Action omeprazole 20 mg capsule,delayed release(DR/EC) 20 mg PO DAILY Qty: 90 RF: 1 Hold Instructions: Doctor's Order albuterol sulfate [Ventolin HFA] 90 mcg/actuation HFA aerosol inhaler 2 puff PO Q6H PRN (Reason: shortness of breath or wheezing) Qty: 8.5 RF: 0 sertraline 50 mg tablet 50 mg PO DAILY Qty: 90 RF: 3 levothyroxine 112 mcg tablet 112 mcg PO DAILY 90 Days Qty: 90 RF: 3 donepezil 10 mg tablet 10 mg PO BEDTIME Qty: 30 RF: 12 amlodipine 10 mg tablet 10 mg PO DAILY Qty: 90 RF: 3 simvastatin 20 mg tablet 20 mg PO BEDTIME 90 Days Qty: 90 RF: 2 bismuth subsalicylate 262 mg tablet,chewable 2 tab PO QID 10 Days Qty: 80 RF: 0 metronidazole 250 mg tablet 250 mg PO QID 10 Days Qty: 40 RF: 0 tetracycline 500 mg capsule 500 mg PO Q6H 10 Days Qty: 40 RF: 0 cholecalciferol (vitamin D3) 1,250 mcg (50,000 unit) capsule 1,250 mcg PO QWEEK RF: 0 fluticasone propionate [Allergy Relief (fluticasone)] 50 mcg/actuation spray,suspension 2 spray intranasal DAILY RF: 0 budesonide-formoterol [Symbicort] 160-4.5 mcg/actuation HFA aerosol inhaler 2 puff inhalation BID Qty: 10.2 RF: 8 prochlorperazine maleate 5 mg tablet 5 mg PO BID 10 Days Qty: 20 RF: 0 omeprazole 20 mg capsule,delayed release(DR/EC) 20 mg PO BID 30 Days Qty: 60 RF: 1 Referrals: Physician,Unknown [Primary Care Provider] - 2 days
--- NOTE | 2020-12-17 21:22 | ECG_ITS ---
Test Reason : VOMTING Blood Pressure : / mmHG Vent. Rate : 060 BPM Atrial Rate : 060 BPM P-R Int : 170 ms QRS Dur : 088 ms QT Int : 438 ms P-R-T Axes : 076 067 065 degrees QTc Int : 438 ms Normal sinus rhythm Normal ECG When compared with ECG of 18-OCT-2020 11:52, No significant change was found Referred By: Eli Rowell Electronically Signed By:JASMIN ROBERTS
[2020-12-17] MEDS: ondansetron HCL 4 MG/2 ML VIAL IVPUSH (22:02)
[2020-12-17] MEDS: 0.9 % Sodium Chloride 1,000 ML 999 ML IV (22:02)
[2020-12-17 22:13] LABS: MANUAL DIFF FLAG NO
[2020-12-17 22:14] LABS: Basophils Percent Auto 0.4 % (0-2); Eosinophils Percent Auto 0.2 % (0-4); Hematocrit 35.7 % (37-47); Hemoglobin 11.4 g/dl (12.0-16.0); Imm Gran Abs Auto 0.02 X10*3/uL (0.00-0.03); Imm Gran Pct Auto 0.2 % (0.0-0.4); Lymphocytes Absolute Auto 1.1 X10*3/uL (1.2-4.9); Mean Corpuscular HGB Conc 31.9 g/dl (31.0-35.0); Mean Corpuscular Hemoglobin 25.2 pg (27.0-33.0); Mean Platelet Volume 11.3 fL (9.4-12.3); Monocytes Absolute Auto 0.5 X10*3/uL (0.1-1.2); Monocytes Percent Auto 5.8 % (2-11); Neutrophils Absolute Auto 6.5 X10*3/uL (2.0-8.3); Neutrophils Percent Auto 80.4 % (45-73); Platelet Count 229 X10*3/uL (160-400); Red Blood Count 4.52 X10*6/uL (4.20-5.50); Red Cell Distribution Width 15.3 % (11.0-16.0); White Blood Count 8.1 X10*3/uL (4.8-10.8)
[2020-12-17 22:29] LABS: Alanine Aminotransferase 11 U/L (0-31); Albumin Level 4.1 g/dL (3.5-5.0); Alkaline Phosphatase 83 U/L (39-117); Anion Gap 15 (12-20); Aspartate Amino Transferase 15 U/L (5-31); Bilirubin Total 0.4 mg/dL (0.0-1.0); Blood Urea Nitrogen 16 mg/dL (9-16); Calcium 9.8 mg/dL (8.4-10.2); Carbon Dioxide 22 mmol/L (22-29); Chloride 109 mmol/L (96-108); Creatinine Clr Calc Pharmacy 49.7; Estimated Glomerular Filt Rate > 60; Glucose Random 85 mg/dL (60-115); Potassium 4.5 mmol/L (3.3-5.1); Sodium 141 mmol/L (135-145); Total Protein 7.5 g/dL (6.5-8.0)
== END 2020-12-17 23:34 | disposition home or self-care (01) ==
PROVIDERS: Emergency Provider Student in an Organized Health Care Education/Training Program
DX: R55 Syncope and collapse (principal); R11.2 Nausea with vomiting, unspecified; J44.9 Chronic obstructive pulmonary disease, unspecified; I10 Essential (primary) hypertension; Z79.899 Other long term (current) drug therapy
CPT/HCPCS: 36415; 80053; 85025; 93005; 96365; 96375; 99284; J2405

== ENCOUNTER 2020-12-18 13:14 | Day surgery (SDC) | payer MEDICARE, SELFPAY ==
--- NOTE | 2020-12-15 09:52 | HO.ANESPROP2 ---
Documented by User: Sagrario Lewis NP 12/15/20 09:53 HPI - Anesthesia Eval Consult details Narrative: 75yo F for Upper Endoscopy and Colonoscopy [facility] Active Problems Active Problems: All Active Problems (Updated 11/07/20 @ 14:35 by Jaspreet Blakely PA-C) H. pylori duodenitis (Acute) Nausea (Acute) Chronic diarrhea (Acute) Diarrhea (Acute) Vitamin D deficiency (Acute) Vitamin B 12 deficiency (Acute) Cognitive impairment (Acute) Gait instability (Acute) Hypercholesterolemia (Acute) Osteoarthritis (Acute) Hypertension (Acute) Anxiety and depression (Acute) COPD (chronic obstructive pulmonary disease) (Acute) Ford's esophagus (Acute) GERD (gastroesophageal reflux disease) (Acute) Hypothyroid (Acute) Past Medical History Medical History Anxiety and depression Ford's esophagus Bile salt-induced diarrhea COPD (chronic obstructive pulmonary disease) Cutaneous lupus erythematosus GERD (gastroesophageal reflux disease) Hypercholesterolemia Hypertension Hypothyroid Osteoarthritis Vitamin D deficiency Family History Family History Father Lymphoma Lung cancer Mother Hypertension Diabetes Sister Brain cancer Surgical History Surgical History History of cataract surgery History of cholecystectomy History of ear surgery History of eye surgery History of rectal surgery Social History Social History Alcohol intake: current Patient Tobacco Use Status: Never used Tobacco e-Cigarette/Vaping Use: Never Used Second Hand Smoke Exposure: No Use of substances other than those prescribed or required for medical reasons: No Are you DNR?: No Advance Directives: No Advance Directives Information Provided: Yes service: No Current occupational status: retired Meds Allergies Allergy/AdvReac Type Severity Reaction Status Date / Time amoxicillin [AMOXICILLIN] Allergy Intermediate STOMACH Verified 12/18/20 13:52 ISSUES pollen extracts [POLLEN] Allergy Mild RUNNY Verified 12/18/20 13:53 NOSE, SNEEZING, ITCHY EYES Home Medications Medication Instructions Recorded Confirmed Last Taken Type cholecalciferol (vitamin D3) 1,250 1,250 mcg PO QWEEK 03/06/20 10/23/20 Unknown History mcg (50,000 unit) capsule fluticasone propionate 50 2 spray INTRANASAL DAILY 03/06/20 10/23/20 Unknown History mcg/actuation nasal spray,suspension (Allergy Relief (fluticasone)) Exam Exam Date and Time: December 15, 2020951 Pertinent Lab Results Pertinent Lab Results: Laboratory Tests 12/07/20 12/07/20 12:30 12:30 WBC 4.7 L Hgb 11.2 L Hct 36.2 L Plt Count 279 Sodium 144 Potassium 4.3 Chloride 111 H Carbon Dioxide 26 BUN 14 Creatinine 0.81 Narrative Narrative: EKG 10/2020 Vent. Rate : 056 BPM ? ? Atrial Rate : 056 BPM ?? P-R Int : 166 ms? QRS Dur : 080 ms ? ? QT Int : 448 ms ? ? ? P-R-T Axes : 076 071 079 degrees ?? QTc Int : 432 ms ? Sinus bradycardia Otherwise normal ECG When compared with ECG of 02-OCT-2017 15:47, No significant change was found Assessment and Plan Assessment Anesthesia Assessment: Chart Reviewed Documented by User: Wendy Schwarz MD 12/18/20 13:58 [facility] Past Medical History Medical History Anxiety and depression Ford's esophagus Bile salt-induced diarrhea COPD (chronic obstructive pulmonary disease) Cutaneous lupus erythematosus GERD (gastroesophageal reflux disease) Hypercholesterolemia Hypertension Hypothyroid Osteoarthritis Vitamin D deficiency Family History Family History Father Lymphoma Lung cancer Mother Hypertension Diabetes Sister Brain cancer Family history of problems with anesthesia: No Surgical History Surgical History History of cataract surgery History of cholecystectomy History of ear surgery History of eye surgery History of rectal surgery History of Problems with Anesthesia: No Social History Social History Alcohol intake: current Patient Tobacco Use Status: Never used Tobacco e-Cigarette/Vaping Use: Never Used Second Hand Smoke Exposure: No Use of substances other than those prescribed or required for medical reasons: No Are you DNR?: No Advance Directives: No Advance Directives Information Provided: Yes service: No Current occupational status: retired Meds Allergies Allergy/AdvReac Type Severity Reaction Status Date / Time amoxicillin [AMOXICILLIN] Allergy Intermediate STOMACH Verified 12/18/20 13:52 ISSUES pollen extracts [POLLEN] Allergy Mild RUNNY Verified 12/18/20 13:53 NOSE, SNEEZING, ITCHY EYES Home Medications Medication Instructions Recorded Confirmed Last Taken Type cholecalciferol (vitamin D3) 1,250 1,250 mcg PO QWEEK 03/06/20 10/23/20 Unknown History mcg (50,000 unit) capsule fluticasone propionate 50 2 spray INTRANASAL DAILY 03/06/20 10/23/20 Unknown History mcg/actuation nasal spray,suspension (Allergy Relief (fluticasone)) Exam Airway Mallampati Class: II TM Dist: >3cm Neck ROM: Full Assessment and Plan Assessment Anesthesia Assessment: Anesthesia Plan Discussed Final Anesthetic Review Family History of Problems with Anesthesia: No History of Problems with Anesthesia: No NPO: Yes ASA Class: III Final Preanesthetic Review: No Changes in Pt Med Stat, Meds/Allgs Chart Reviewed, Consent Obtained/Reviewed and Anes Risks/Benef Reviewed Patient Risk: Intermediate Procedure Risk: Low Assessment/Block/Sedation in SS: Assess/Block/Sedation-SS Anesthetic Plan Anesthetic Plan: MAC: Disposition: Standard PACU
[2020-12-18 13:34] VITALS: BP 147/54; PULSE 69; RESP 20; TEMP 36.6; O2SAT 95; BMI 22.3
[2020-12-18] MEDS: Lactated Ringers 1,000 ML 100 ML IVCONT (13:55)
--- NOTE | 2020-12-18 14:18 | HO.ANESPROP2 ---
REPLACED BY [facility] Active Problems Active Problems: All Active Problems (Updated 12/18/20 @ 00:01 by Claudette Shay) H. pylori duodenitis (Acute) Nausea (Acute) Chronic diarrhea (Acute) Diarrhea (Acute) Vitamin D deficiency (Acute) Vitamin B 12 deficiency (Acute) Cognitive impairment (Acute) Gait instability (Acute) Hypercholesterolemia (Acute) Osteoarthritis (Acute) Hypertension (Acute) Anxiety and depression (Acute) COPD (chronic obstructive pulmonary disease) (Acute) Ford's esophagus (Acute) GERD (gastroesophageal reflux disease) (Acute) Hypothyroid (Acute) Past Medical History Medical History Anxiety and depression Ford's esophagus Bile salt-induced diarrhea COPD (chronic obstructive pulmonary disease) Cutaneous lupus erythematosus GERD (gastroesophageal reflux disease) Hypercholesterolemia Hypertension Hypothyroid Osteoarthritis Vitamin D deficiency Family History Family History Father Lymphoma Lung cancer Mother Hypertension Diabetes Sister Brain cancer Family history of problems with anesthesia: No Surgical History Surgical History History of cataract surgery History of cholecystectomy History of ear surgery History of eye surgery History of rectal surgery History of Problems with Anesthesia: No Social History Social History Alcohol intake: current Patient Tobacco Use Status: Never used Tobacco e-Cigarette/Vaping Use: Never Used Second Hand Smoke Exposure: No Use of substances other than those prescribed or required for medical reasons: No Are you DNR?: No Advance Directives: No Advance Directives Information Provided: Yes service: No Current occupational status: retired Meds Allergies Allergy/AdvReac Type Severity Reaction Status Date / Time amoxicillin [AMOXICILLIN] Allergy Intermediate STOMACH Verified 12/18/20 13:52 ISSUES pollen extracts [POLLEN] Allergy Mild RUNNY Verified 12/18/20 13:53 NOSE, SNEEZING, ITCHY EYES Active Medications: Current Medications Generic Name Dose Route Start Last Admin Trade Name Freq PRN Reason Stop Dose Admin Albuterol Sulfate 2.5 mg 12/18/20 13:18 Albuterol Sulfate (0.083%) 2.5 Mg/3 Ml Vial.Neb INHALE ONCE PRN Shortness of Breath/Wheezing Lactated Ringer's 1,000 mls @ 100 mls/hr 12/18/20 13:30 12/18/20 13:55 Lr IVCONT 100 mls/hr .Q10H BRENT Administration Sodium Biphosphate/Sodium Phosphate 133 ml 12/18/20 13:18 Sodium Phosphate,[place]-Dibasic 133 Ml Enema IA ONCE PRN Poor Colonoscopy Prep Results Home Medications Medication Instructions Recorded Confirmed Last Taken Type cholecalciferol (vitamin D3) 1,250 1,250 mcg PO QWEEK 03/06/20 10/23/20 Unknown History mcg (50,000 unit) capsule fluticasone propionate 50 2 spray INTRANASAL DAILY 03/06/20 10/23/20 Unknown History mcg/actuation nasal spray,suspension (Allergy Relief (fluticasone)) Exam Exam Date and Time: December 18, 2020 1418 Height,Weight and Vital Signs: Height 5 ft 2 in Weight 55.338 kg Last Vital Signs Temp 97.9 F 12/18/20 13:34 Pulse 69 12/18/20 13:34 Resp 20 12/18/20 13:34 BP 147/54 H 12/18/20 13:34 Pulse Ox 95 12/18/20 13:34 Airway Mallampati Class: II TM Dist: >3cm Neck ROM: Limited Partial: Upper Assessment and Plan Assessment Anesthesia Assessment: Anesthesia Plan Discussed and Chart Reviewed Final Anesthetic Review Family History of Problems with Anesthesia: No History of Problems with Anesthesia: No NPO: Yes ASA Class: III Final Preanesthetic Review: No Changes in Pt Med Stat, Meds/Allgs Chart Reviewed, Consent Obtained/Reviewed and Anes Risks/Benef Reviewed Patient Risk: Intermediate Procedure Risk: Low Assessment/Block/Sedation in SS: Assess/Block/Sedation-SS Anesthetic Plan Anesthetic Plan: MAC: Disposition: Standard PACU
[2020-12-18 15:40] VITALS: BP 130/54; PULSE 78; RESP 18; TEMP 36.9; O2SAT 100
--- NOTE | 2020-12-18 15:52 | PM.OP ---
Brief Operative Note Date of Service: 12/18/20 Pre-op diagnosis: Diarrhea, weight loss, GERD/Ford's, Hx of colon polyps Post-op diagnosis: other (Hiatal hernia, Duodenal AVM's, R/O celiac disease, Colon polyp, R/O microscopic colitis) Procedure: EGD with biopsies, Colonoscopy to the cecum and TI with biopsies Surgeon: Juan R Lang Anesthesia: MAC Was an Registered Phlebotomist Part Time used for this Procedure?: No Estimated blood loss (mL): 4.0 Pathology: other (A. Descending duodenum B. EG Junction at 37cm C. Terminal ileum D. Ascending colon E. Polyp at 50cm F. Descending duodenum) Condition: stable Disposition: PACU
[2020-12-18 15:55] VITALS: BP 139/66; PULSE 58; RESP 16; TEMP 36.9; O2SAT 97
--- NOTE | 2020-12-18 19:32 | OP_ITS ---
SURGEON: Juan R Lang MD INDICATIONS: The patient presents for evaluation of chronic diarrhea, weight loss, gastroesophageal reflux and history of Ford's esophagus, and personal history of tubular adenoma of the colon. Full consent has been obtained from her for both procedures, including risks of bleeding and perforation. PREOPERATIVE DIAGNOSIS: POSTOPERATIVE DIAGNOSIS: PROCEDURE PERFORMED: Esophagogastroduodenoscopy with biopsies, and colonoscopy to the cecum and terminal ileum with biopsies, and biopsy and removal of polyp. ESTIMATED BLOOD LOSS: COMPLICATIONS: ANESTHESIA: Monitored anesthesia care. ASSISTANTS: SPECIMENS: PREOPERATIVE DIAGNOSES: Gastroesophageal reflux, history of Ford's esophagus, diarrhea, weight loss, history of tubular adenoma of the colon. POSTOPERATIVE DIAGNOSES: Gastroesophageal reflux, history of Ford's esophagus, diarrhea, weight loss, history of tubular adenoma of the colon, hiatal hernia, rule out celiac disease, colon polyp, rule out microscopic colitis, diverticulosis, and internal hemorrhoids. DESCRIPTION OF PROCEDURE: The patient was placed in the left lateral decubitus position. The Olympus video gastroscope was passed in the posterior oropharynx and upper esophagus under direct vision. The scope was passed slowly into the distal esophagus. The gastroesophageal junction appeared at 37 cm. There was some slight irregularity, but no evidence of esophagitis nor any definitive evidence of Ford's mucosa. The scope entered into the stomach. There was a small hiatal hernia. The scope was advanced to the pylorus and duodenum was cannulated to the descending portion. The duodenum including the bulb was carefully inspected. There were multiple nonbleeding less than 10 mm angiodysplasias in the second and third portions of duodenum. The duodenal folds appeared normal. Biopsies were obtained from the portion of the duodenum without angiodysplasias to rule out celiac disease. The duodenal bulb appeared normal. The scope was withdrawn back into the stomach. The gastric antrum and body appeared normal with good peristalsis. The scope was retroflexed visualizing the proximal stomach carefully, which appeared normal, without any sign of mass or ulceration. Scope was straightened out and withdrawn back into the esophagus. Biopsies were obtained at the EG junction at 37 cm. Proximal to this, the esophageal mucosa appeared normal. The scope was withdrawn from the patient. She was turned around for the colonoscopy. The digital rectal exam revealed no abnormalities. The Olympus video pediatric colonoscope was entered into the rectum and advanced easily to the cecum. Once in the cecum, I did identify normal-appearing cecal pouch with appendiceal orifice and a normal-appearing ileocecal valve. The terminal ileum was cannulated and appeared normal. Biopsies were obtained. The scope was withdrawn back into the cecum. The cecum and ileocecal valve appeared normal. The scope was slowly withdrawn assessing all mucosal surfaces carefully. Preparation was excellent. I did not visualize any sign of colitis nor angiodysplasia. At 50 cm, was a flat, but raised approximately 8 mm polyp, which was biopsied and removed with cold biopsy forceps. Biopsies were obtained in the ascending and descending colon as well to rule out microscopic colitis. There was a mild amount of sigmoid diverticulosis. In the rectum, scope was retroflexed visualizing internal hemorrhoids, but no other pathology. The rectal mucosa appeared normal. The scope was straightened out and withdrawn from the patient. She tolerated both procedures well and was returned to the recovery area in stable condition. IMPRESSION: 1. Rule out celiac disease. 2. Nonbleeding angiodysplasias of duodenum. 3. Hiatal hernia, history of Ford's esophagus. 4. Colon polyp. 5. Rule out microscopic colitis. 6. Diverticulosis. 7. Internal hemorrhoids. PLAN: The results of the biopsies will be checked. I do not think she will need any further screening colonoscopies in the future. She was advised not to use any aspirin and NSAIDs for at least 1 week. She will continue her Prilosec for the chronic reflux. Recent laboratories including thyroid and celiac disease labs were negative and recent stool specimens were negative for any type of infection. She does have a prescription for Lomotil and I did advise her to use 1 or 2 Lomotil up to 4 times a day to keep her diarrhea under control. If that works well for, we could simply continue that. Another option might be a trial of cholestyramine at some point. She will be seen in 2 to 3 months for a followup visit. She was advised to avoid aspirin and NSAIDs long-term to minimize risk of bleeding from the angiodysplasias and elsewhere. MD ELVIE Stoddard/JOHN / [id number]
== END 2020-12-18 16:18 | disposition home or self-care (01) ==
PROVIDERS: PCP Internal Medicine; Visit Provider Internal Medicine
PROC: (CPT 45380; principal; 2020-12-18 13:40)
DX: R19.7 Diarrhea, unspecified (principal); R63.4 Abnormal weight loss; Z86.010 Personal history of colon polyps; D12.5 Benign neoplasm of sigmoid colon; K57.30 Diverticulosis of large intestine without perforation or abscess without bleeding; K64.8 Other hemorrhoids; K21.9 Gastro-esophageal reflux disease without esophagitis; Z86.19 Personal history of other infectious and parasitic diseases; K31.819 Angiodysplasia of stomach and duodenum without bleeding; K44.9 Diaphragmatic hernia without obstruction or gangrene
CPT/HCPCS: 45380; 43239; 88305; J3010

== ENCOUNTER 2021-01-15 12:17 | Emergency (ER) | payer MEDICARE, SELFPAY ==
--- NOTE | ~2021-01-15 | CT_ITS ---
EXAMINATION: CT HEAD WITHOUT CONTRAST CLINICAL INFORMATION: Syncope and question facial droop COMPARISON: Previous head CT October 2020 TECHNIQUE: Contiguous axial imaging was performed from the skull base to vertex without intravenous administration of contrast. This CT examination was performed using dose optimization techniques as appropriate, variously including the following: *Automated exposure control *Adjustment of mA and/or kV according to patient size (this includes techniques or standardized protocols for targeted exams where dose is matched to indication/reason for exam; i.e. extremities or head) *Use of iterative reconstruction technique DLP: 69 mGy-cm FINDINGS: There is no evidence of an extra-axial collection. There is no evidence of intra or extra-axial hemorrhage. The ventricles and extra-axial CSF spaces are prominent suggestive of mild generalized atrophy. There is nonspecific periventricular white matter disease. There are right periventricular white matter lacunar infarcts in the right parietal lobe. There is a lacunar infarct in the right basal ganglia. These appear unchanged. No mass, mass effect or acute infarct is seen. Review at bone windows is normal. No skull fracture is seen. There is a polyp or cyst in the right maxillary sinus. Mastoid air cells and middle ears are clear. CT/CT head/brain wo con IMPRESSION: No acute findings. 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
--- NOTE | ~2021-01-15 | XR_ITS ---
EXAMINATION: LEFT FOOT AND ANKLE X-RAYS CLINICAL INFORMATION: Trauma/rolled ankle COMPARISON: None TECHNIQUE: 3 views of the left ankle and 3 views of the left foot FINDINGS: Left ankle: Bone alignment is normal. No fracture or dislocation is seen. The ankle mortise is normal. Soft tissues are normal. Left foot: Bone alignment is normal. No fracture or dislocation is seen. Joint spaces are normal. Soft tissues are normal. XR/XR ankle LT min 3V IMPRESSION: Unremarkable exam.
--- NOTE | ~2021-01-15 | XR_ITS ---
EXAMINATION: LEFT FOOT AND ANKLE X-RAYS CLINICAL INFORMATION: Trauma/rolled ankle COMPARISON: None TECHNIQUE: 3 views of the left ankle and 3 views of the left foot FINDINGS: Left ankle: Bone alignment is normal. No fracture or dislocation is seen. The ankle mortise is normal. Soft tissues are normal. Left foot: Bone alignment is normal. No fracture or dislocation is seen. Joint spaces are normal. Soft tissues are normal. XR/XR foot LT 2V IMPRESSION: Unremarkable exam.
[2021-01-15 12:29] VITALS: BP 135/58; BP 147/49; PULSE 55; PULSE 56; RESP 18; TEMP 36.9; O2SAT 97; O2SAT 99; BMI 23.8
[2021-01-15 12:38] LABS: Glucose, Whole Blood 75 mg/dL (60-115)
--- NOTE | 2021-01-15 12:44 | ED.SYNCOPE ---
HPI - Syncope General Chief Complaint: Syncope Stated Complaint: syncope Time Seen by Provider: 01/15/21 12:43 Source: patient Mode of arrival: EMS Limitations: no limitations History of Present Illness HPI narrative: Patient had a syncopal event at a craft standing and she felt lightheaded, they got her to sit on a walker and then she slid off the walker and twisted her left ankle. MD complaint: loss of consciousness Onset (ago): minute(s) -: second(s) Prodromal symptoms: lightheaded Witnessed: Yes - by Bystander Context: standing up Injuries sustained associated with event: LLE Current symptoms: none History: previous syncopal episode Treatments prior to arrival: none Related Data Home Medications Medication Instructions Recorded Confirmed cholecalciferol (vitamin D3) 1,250 1,250 mcg PO QWEEK 03/06/20 10/23/20 mcg (50,000 unit) capsule fluticasone propionate 50 2 spray INTRANASAL DAILY 03/06/20 10/23/20 mcg/actuation nasal spray,suspension (Allergy Relief (fluticasone)) Previous Rx's Medication Instructions Recorded omeprazole 20 mg capsule,delayed 20 mg PO DAILY #90 cap 01/17/20 release budesonide-formoterol HFA 160 2 puff INHALATION BID #10.2 g 03/06/20 mcg-4.5 mcg/actuation aerosol inhaler (Symbicort) albuterol sulfate 90 mcg/actuation 2 puff PO Q6H PRN #8.5 g 03/21/20 aerosol inhaler (Ventolin HFA) levothyroxine 112 mcg tablet 112 mcg PO DAILY 90 Days #90 tab 04/25/20 sertraline 50 mg tablet 50 mg PO DAILY #90 tab 04/25/20 donepezil 10 mg tablet 10 mg PO BEDTIME #30 tab 06/15/20 amlodipine 10 mg tablet 10 mg PO DAILY #90 tab 07/31/20 omeprazole 20 mg capsule,delayed 20 mg PO BID 30 Days #60 cap 10/23/20 release prochlorperazine maleate 5 mg 5 mg PO BID 10 Days #20 tab 10/23/20 tablet simvastatin 20 mg tablet 20 mg PO BEDTIME 90 Days #90 tab 10/25/20 bismuth subsalicylate 262 mg 2 tab PO QID 10 Days #80 tab 11/07/20 chewable tablet metronidazole 250 mg tablet 250 mg PO QID 10 Days #40 tab 11/07/20 tetracycline 500 mg capsule 500 mg PO Q6H 10 Days #40 cap 11/07/20 Allergies Allergy/AdvReac Type Severity Reaction Status Date / Time amoxicillin [AMOXICILLIN] Allergy Intermediate STOMACH Verified 12/18/20 13:52 ISSUES pollen extracts [POLLEN] Allergy Mild RUNNY Verified 12/18/20 13:53 NOSE, SNEEZING, ITCHY EYES Review of Systems Constitutional: Constitutional: Reports no additional constitutional complaints Eyes: Eyes: Reports no additional eye complaints ENT: Denies dizziness Cardiovascular: Cardiovascular: Reports no additional cardiovascular complaints Respiratory: Respiratory: Reports as per HPI Gastrointestinal: Gastrointestinal: Reports no additional gastrointestinal complaints Genitourinary: Genitourinary: Reports no additional female genitourinary complaints Musculoskeletal: Musculoskeletal: Reports no additional musculoskeletal complaints Integumentary/Breasts: Skin/Breast: Denies rash Neurologic: Reports system reviewed and no additional complaints, except as documented, Denies dizziness and Denies Sensory deficit (Neuro) Psychiatric: Psychiatric: Denies anxiety PMFSH Past Medical History Medical History Anxiety and depression Ford's esophagus Bile salt-induced diarrhea COPD (chronic obstructive pulmonary disease) Cutaneous lupus erythematosus GERD (gastroesophageal reflux disease) Hypercholesterolemia Hypertension Hypothyroid Osteoarthritis Vitamin D deficiency Surgical History History of cataract surgery History of cholecystectomy History of ear surgery History of eye surgery History of rectal surgery Family History Family History Father Lymphoma Lung cancer Mother Hypertension Diabetes Sister Brain cancer Social History Social History Alcohol intake: never Patient Tobacco Use Status: Never used Tobacco e-Cigarette/Vaping Use: Never Used Second Hand Smoke Exposure: No Use of substances other than those prescribed or required for medical reasons: No Advance Directives: No Advance Directives Information Provided: No service: No Current occupational status: retired Physical Exam Vital Signs: Vital Signs: Last Vital Signs Temp 96.3 F L 01/15/21 14:33 Pulse 61 01/15/21 14:33 Resp 16 01/15/21 14:33 BP 150/55 H 01/15/21 14:33 Pulse Ox 100 01/15/21 14:33 Body Mass Index 23.8 Const: Nutritional Appearance: average body habitus Orientation/consciousness: oriented to person and patient oriented x3 Limitations: no limitations HENMT: Head: Yes normal to inspection Ears: external ears normal General nose exam: Normal external nose present Mouth: Normal oral and palatal mucosa present and oropharynx normal Throat: Yes posterior oropharynx normal Eyes: General: appearance normal, both eyes and all related structures Neck: Other: supple Neck: Yes normal visual inspection Chest: Chest palpation & inspection: normal inspection of the chest Resp: Auscultation: clear to auscultation bilaterally Cardio: Jugular venous distension: no JVD Rate: regular rate Rhythm: regular rhythm Heart sounds: S1 normal heart sound present and S2 normal heart sound present GI: Inspection: Yes normal to inspection Palpation (GI): Soft to palpation, nontender and No hepatosplenomegaly present Auscultation: normal bowel sounds : General: Yes no CVA tenderness Back/Spine/Pelvis: Back: no CVA tenderness Skin: General skin exam: no rashes or lesions noted Neuro: General: oriented to person and patient oriented x3 Cranial nerves: Yes CN's II-XII intact bilaterally Motor exam (neuro): 5/5 motor strength present throughout Sensory Exam: No Sensory deficit (Neuro) Extrem: General: Yes normal to inspection Psych: Appearance: grossly normal Course Reevaluation(s) Reevaluation #1: Head CT has mild disease interms of atrophy, no obvious cardiac reason for syncope and she has had prior in the past. Will dc with follow up Time: 15:26 MDM - Syncope Lab Data Result diagrams: 01/15/21 13:30 01/15/21 13:30 Labs: Lab Results 01/15/21 01/15/21 01/15/21 Range/Units 12:34 13:30 13:30 WBC 5.1 (4.8-10.8) X10*3/uL RBC 4.38 (4.20-5.50) X10*6/uL Hgb 10.3 L (12.0-16.0) g/dl Hct 34.2 L (37-47) % MCV 78.1 L (80-98) fL MCH 23.5 L (27.0-33.0) pg MCHC 30.1 L (31.0-35.0) g/dl RDW 15.2 (11.0-16.0) % Plt Count 192 (160-400) X10*3/uL MPV 10.6 (9.4-12.3) fL Immature Gran % (Auto) 0.2 (0.0-0.4) % Neut % (Auto) 74.7 H (45-73) % Lymph % (Auto) 19.0 L (20-40) % Dixie % (Auto) 5.3 (2-11) % Eos % (Auto) 0.2 (0-4) % Baso % (Auto) 0.6 (0-2) % Lymph # (Auto) 1.0 L (1.2-4.9) X10*3/uL Dixie # (Auto) 0.3 (0.1-1.2) X10*3/uL Eos # (Auto) 0.0 (0.0-0.4) X10*3/uL Baso # (Auto) 0.0 (0.0-0.2) X10*3/uL Abs Immat Gran (auto) 0.01 (0.00-0.03) X10*3/uL Absolute Neuts (auto) 3.8 (2.0-8.3) X10*3/uL Absolute Nucleated RBC 0.000 (0.0-0.012) X10*3/uL Nucleated RBC % (auto) 0.0 (0.0-0.2) /100WBC Sodium 140 (135-145) mmol/L Potassium 4.5 (3.3-5.1) mmol/L Chloride 108 (96-108) mmol/L Carbon Dioxide 24 (22-29) mmol/L Anion Gap 13 (12-20) BUN 14 (9-16) mg/dL Creatinine 0.83 (0.5-1.4) mg/dL Estim Creat Clear Calc 45.6 Estimated GFR > 60 POC Glucose 75 (60-115) mg/dL Random Glucose 152 H (60-115) mg/dL Calcium 8.8 D (8.4-10.2) mg/dL Troponin I High Sens (<3.5-17.0) ng/L 01/15/21 Range/Units 13:30 WBC (4.8-10.8) X10*3/uL RBC (4.20-5.50) X10*6/uL Hgb (12.0-16.0) g/dl Hct (37-47) % MCV (80-98) fL MCH (27.0-33.0) pg MCHC (31.0-35.0) g/dl RDW (11.0-16.0) % Plt Count (160-400) X10*3/uL MPV (9.4-12.3) fL Immature Gran % (Auto) (0.0-0.4) % Neut % (Auto) (45-73) % Lymph % (Auto) (20-40) % Dixie % (Auto) (2-11) % Eos % (Auto) (0-4) % Baso % (Auto) (0-2) % Lymph # (Auto) (1.2-4.9) X10*3/uL Dixie # (Auto) (0.1-1.2) X10*3/uL Eos # (Auto) (0.0-0.4) X10*3/uL Baso # (Auto) (0.0-0.2) X10*3/uL Abs Immat Gran (auto) (0.00-0.03) X10*3/uL Absolute Neuts (auto) (2.0-8.3) X10*3/uL Absolute Nucleated RBC (0.0-0.012) X10*3/uL Nucleated RBC % (auto) (0.0-0.2) /100WBC Sodium (135-145) mmol/L Potassium (3.3-5.1) mmol/L Chloride (96-108) mmol/L Carbon Dioxide (22-29) mmol/L Anion Gap (12-20) BUN (9-16) mg/dL Creatinine (0.5-1.4) mg/dL Estim Creat Clear Calc Estimated GFR POC Glucose (60-115) mg/dL Random Glucose (60-115) mg/dL Calcium (8.4-10.2) mg/dL Troponin I High Sens < 3.5 (<3.5-17.0) ng/L Imaging Data CT scan - head: Radiologist's impression: FINDINGS: There is no evidence of an extra-axial collection. There is no evidence of intra or extra-axial hemorrhage. The ventricles and extra-axial CSF spaces are prominent suggestive of mild generalized atrophy. There is nonspecific periventricular white matter disease. There are right periventricular white matter lacunar infarcts in the right parietal lobe. There is a lacunar infarct in the right basal ganglia. These appear unchanged. No mass, mass effect or acute infarct is seen. Review at bone windows is normal. No skull fracture is seen. There is a polyp or cyst in the right maxillary sinus. Mastoid air cells and middle ears are clear. ? CT/CT head/brain wo con IMPRESSION: No acute findings. 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 left foot and ankle: Radiologist's impression: FINDINGS: Left ankle: Bone alignment is normal. No fracture or dislocation is seen. The ankle mortise is normal. Soft tissues are normal. Left foot: Bone alignment is normal. No fracture or dislocation is seen. Joint spaces are normal. Soft tissues are normal.? XR/XR ankle LT min 3V IMPRESSION: Unremarkable exam.? ECG Data Attestation: I personally reviewed and interpreted this ECG as follows: Interpretation: normal sinus rate of 60, no st or twave changes Discharge Plan Discharge Clinical Impression: Syncope and collapse Patient Disposition: Home, Self-Care Instructions: Syncope (ED), Syncope in Older Adults (ED) Prescriptions: No Action omeprazole 20 mg capsule,delayed release(DR/EC) 20 mg PO DAILY Qty: 90 RF: 1 Hold Instructions: Doctor's Order albuterol sulfate [Ventolin HFA] 90 mcg/actuation HFA aerosol inhaler 2 puff PO Q6H PRN (Reason: shortness of breath or wheezing) Qty: 8.5 RF: 0 sertraline 50 mg tablet 50 mg PO DAILY Qty: 90 RF: 3 levothyroxine 112 mcg tablet 112 mcg PO DAILY 90 Days Qty: 90 RF: 3 donepezil 10 mg tablet 10 mg PO BEDTIME Qty: 30 RF: 12 amlodipine 10 mg tablet 10 mg PO DAILY Qty: 90 RF: 3 simvastatin 20 mg tablet 20 mg PO BEDTIME 90 Days Qty: 90 RF: 2 bismuth subsalicylate 262 mg tablet,chewable 2 tab PO QID 10 Days Qty: 80 RF: 0 metronidazole 250 mg tablet 250 mg PO QID 10 Days Qty: 40 RF: 0 tetracycline 500 mg capsule 500 mg PO Q6H 10 Days Qty: 40 RF: 0 cholecalciferol (vitamin D3) 1,250 mcg (50,000 unit) capsule 1,250 mcg PO QWEEK RF: 0 fluticasone propionate [Allergy Relief (fluticasone)] 50 mcg/actuation spray,suspension 2 spray intranasal DAILY RF: 0 budesonide-formoterol [Symbicort] 160-4.5 mcg/actuation HFA aerosol inhaler 2 puff inhalation BID Qty: 10.2 RF: 8 prochlorperazine maleate 5 mg tablet 5 mg PO BID 10 Days Qty: 20 RF: 0 omeprazole 20 mg capsule,delayed release(DR/EC) 20 mg PO BID 30 Days Qty: 60 RF: 1 Referrals: Po,Shane Miller MD [Primary Care Provider] - 3 days
--- NOTE | 2021-01-15 12:50 | ECG_ITS ---
Test Reason : SYNCOPE Blood Pressure : / mmHG Vent. Rate : 063 BPM Atrial Rate : 063 BPM P-R Int : 180 ms QRS Dur : 086 ms QT Int : 406 ms P-R-T Axes : 073 069 050 degrees QTc Int : 415 ms Normal sinus rhythm Nonspecific ST abnormality Abnormal ECG When compared with ECG of 17-DEC-2020 21:53, No significant change was found Referred By: Brad Donis Electronically Signed By:BERNARDINO SIDDIQI MD
[2021-01-15 13:15] VITALS: PULSE 72; O2SAT 100
[2021-01-15 13:31] VITALS: BP 146/41; PULSE 64; RESP 12; TEMP 36.7; O2SAT 100
[2021-01-15 13:37] LABS: MANUAL DIFF FLAG NO
[2021-01-15 13:39] LABS: Basophils Percent Auto 0.6 % (0-2); Eosinophils Percent Auto 0.2 % (0-4); Hematocrit 34.2 % (37-47); Hemoglobin 10.3 g/dl (12.0-16.0); Imm Gran Abs Auto 0.01 X10*3/uL (0.00-0.03); Imm Gran Pct Auto 0.2 % (0.0-0.4); Mean Corpuscular HGB Conc 30.1 g/dl (31.0-35.0); Mean Corpuscular Hemoglobin 23.5 pg (27.0-33.0); Mean Corpuscular Volume 78.1 fL (80-98); Mean Platelet Volume 10.6 fL (9.4-12.3); Monocytes Absolute Auto 0.3 X10*3/uL (0.1-1.2); Monocytes Percent Auto 5.3 % (2-11); Neutrophils Absolute Auto 3.8 X10*3/uL (2.0-8.3); Neutrophils Percent Auto 74.7 % (45-73); Platelet Count 192 X10*3/uL (160-400); Red Blood Count 4.38 X10*6/uL (4.20-5.50); Red Cell Distribution Width 15.2 % (11.0-16.0); White Blood Count 5.1 X10*3/uL (4.8-10.8)
[2021-01-15 13:53] LABS: Anion Gap 13 (12-20); Blood Urea Nitrogen 14 mg/dL (9-16); Calcium 8.8 mg/dL (8.4-10.2); Carbon Dioxide 24 mmol/L (22-29); Chloride 108 mmol/L (96-108); Creatinine Clr Calc Pharmacy 45.6; Estimated Glomerular Filt Rate > 60; Glucose Random 152 mg/dL (60-115); Potassium 4.5 mmol/L (3.3-5.1); Sodium 140 mmol/L (135-145)
[2021-01-15 13:59] LABS: Troponin-I High Sensitivity < 3.5 ng/L (<3.5-17.0)
[2021-01-15 14:33] VITALS: BP 150/55; PULSE 61; RESP 16; TEMP 35.7; O2SAT 100
== END 2021-01-15 17:06 | disposition home or self-care (01) ==
PROVIDERS: Emergency Provider Emergency Medicine; PCP Internal Medicine
DX: R55 Syncope and collapse (principal); S99.912A Unspecified injury of left ankle, initial encounter; I10 Essential (primary) hypertension; J44.9 Chronic obstructive pulmonary disease, unspecified; X50.1XXA Overexertion from prolonged static or awkward postures, initial encounter; Y93.9 Activity, unspecified; Y92.89 Other specified places as the place of occurrence of the external cause; Y99.9 Unspecified external cause status
CPT/HCPCS: 36415; 70450; 73610; 73620; 80048; 82947; 84484; 85025; 93005; 99284; 99285

== ENCOUNTER → 2021-02-20 10:23 | Outpatient (BNVA) | payer MEDICARE, SELFPAY | PROVIDERS: PCP Internal Medicine; Visit Provider Internal Medicine | DX: J43.1 Panlobular emphysema (principal); R09.02 Hypoxemia; I10 Essential (primary) hypertension; E03.9 Hypothyroidism, unspecified; E78.00 Pure hypercholesterolemia, unspecified; E55.9 Vitamin D deficiency, unspecified; Z87.891 Personal history of nicotine dependence; Z90.49 Acquired absence of other specified parts of digestive tract; Z88.1 Allergy status to other antibiotic agents; Z88.0 Allergy status to penicillin; J30.1 Allergic rhinitis due to pollen; Z79.899 Other long term (current) drug therapy | CPT/HCPCS: 99202 ==

== ENCOUNTER → 2021-02-23 13:05 | Outpatient (REF) | payer MEDICARE, SELFPAY ==
--- NOTE | 2021-02-23 13:08 | ECG_ITS ---
Hook-up date: 2021-02-23 13:24:00 Duration: 47:59:00 Test Indications: SYNCOPE AND COLLAPSE Medications: 379938 QRS complexes 985 Ventricular ectopics which represent <1 % of total QRS comp. 26840 Supraventricular ectopics which represent 5 % of total QRS comp. * Paced QRS complexs which represent % of total QRS comp. VENTRICULAR ECTOPY 983 Isolated 19 Bigeminal Cycles 1 Couplets 0 Runs 0 Beats in Runs * Beats LONGEST at * BPM at :: -- * Beats FASTEST at * BPM at :: -- SUPRAVENTRICULAR ECTOPY 60158 Isolated 180 Couplets 18 Runs 94 Beats in Runs 13 Beats LONGEST at 140 BPM at 20:31:52 2021-02-24 5 Beats FASTEST at 174 BPM at 10:28:20 2021-02-24 HEART RATES 52 MIN at 08:10:56 2021-02-25 71 AVG 113 MAX at 20:58:50 2021-02-23 LONGEST RR 1.2160 secs at 09:26:46 2021-02-25 S-T LEVELS Channel 1 - 128 mm at 13:24:00 2021-02-23 - 128 mm at 13:24:00 2021-02-23 Channel 2 - 128 mm at 13:24:00 2021-02-23 - 128 mm at 13:24:00 2021-02-23 Channel 3 - 128 mm at 03:24:31 -- - 128 mm at 03:24:31 Underlying rhythm is sinus; Average rate 71/min; range 52-113/min; Frequent supraventricular ectopy- 5% burden; mostly isolated;18 runs noted; longest 13 beats at 140/min; Rare ventricular ectopy; 'hard to breath' in patient diary associated with sinus rhythm. Referred By: Shane Nelson Overread By: LUZMA HARTMAN
== END ==
LOC: HO.CARD 13:05
PROVIDERS: PCP Internal Medicine; Visit Provider Internal Medicine
DX: R55 Syncope and collapse (principal)
CPT/HCPCS: 93225; 93226

== ENCOUNTER 2021-03-06 12:47 | Outpatient (REF) | payer MEDICARE, SELFPAY ==
--- NOTE | 2021-03-06 12:52 | EEG_ITS ---
The waking background activity consists of a posterior 9 to 10 hertz alpha frequency, intermixed anteriorly with low-voltage fast frequencies. Several episodes of paroxysmal delta discharges of 2 hertz are seen from the anterior quadrants bilaterally, lasting about 5 seconds. These discharges increased during periods of drowsiness. Occasional sharp configuration waveforms are also seen from the frontocentral regions bilaterally, at times more prominent over the right. Photic stimulation is without activation. Hyperventilation was omitted. IMPRESSION: This EEG is considered abnormal due to recurrent bilateral predominantly frontal paroxysmal delta discharges consistent with a seizure disorder. No clear focus of these discharges is determined on this study, although at times the right frontal central region appears to be more prominent. Clinical correlation is suggested. MD MIKE Márquez/JOHN / [phone]
== END 2021-03-06 12:48 | disposition home or self-care (01) ==
LOC: HO.NEURO 12:47
PROVIDERS: Visit Provider Internal Medicine
DX: R55 Syncope and collapse (principal)
CPT/HCPCS: 95816

== ENCOUNTER 2021-03-15 14:44 | Emergency (ER) | payer MEDICARE, SELFPAY ==
[2021-03-15 15:56] VITALS: BP 149/60; PULSE 65; RESP 16; TEMP 36.9; O2SAT 97; BMI 22.6
[2021-03-15 16:24] LABS: Eosinophils Percent Auto 0.2 % (0-4); Imm Gran Abs Auto 0.01 X10*3/uL (0.00-0.03); Imm Gran Pct Auto 0.2 % (0.0-0.4); Mean Corpuscular Hemoglobin 22.6 pg (27.0-33.0); SCAN SMEAR FLAG 1
[2021-03-15 16:26] LABS: Basophils Percent Auto 0.5 % (0-2); Hematocrit 34.7 % (37.0-47.0); Hemoglobin 10.5 g/dl (12.0-16.0); Lymphocytes Absolute Auto 1.2 X10*3/uL (1.2-4.9); Lymphocytes Percent Auto 19.6 % (20-40); Mean Corpuscular HGB Conc 30.3 g/dl (31.0-35.0); Mean Corpuscular Volume 74.8 fL (80.0-98.0); Mean Platelet Volume 10.7 fL (9.4-12.3); Monocytes Absolute Auto 0.4 X10*3/uL (0.1-1.2); Monocytes Percent Auto 6.9 % (2-11); Neutrophils Absolute Auto 4.3 x10*3/uL (2.0-8.3); Neutrophils Percent Auto 72.6 % (45-73); Platelet Count 269 X10*3/uL (160-400); Red Blood Count 4.64 X10*6/uL (4.20-5.50); Red Cell Distribution Width 17.3 % (11.0-16.0); White Blood Count 5.9 X10*3/uL (4.8-10.8)
[2021-03-15 16:31] LABS: MANUAL DIFF FLAG NO; PLT ABN DIST 1
[2021-03-15 16:38] LABS: Anion Gap 13 (12-20); Blood Urea Nitrogen 17 mg/dL (9-16); Calcium 9.5 mg/dL (8.4-10.2); Carbon Dioxide 24 mmol/L (22-29); Chloride 111 mmol/L (96-108); Creatinine Clr Calc Pharmacy 45.1; Estimated Glomerular Filt Rate > 60; Glucose Random 101 mg/dL (60-115); Potassium 4.3 mmol/L (3.3-5.1); Sodium 144 mmol/L (135-145)
[2021-03-15 19:47] VITALS: BP 111/43; PULSE 63; RESP 24; TEMP 36.5
--- NOTE | 2021-03-15 20:30 | ECG_ITS ---
Test Reason : WEAKNESS Blood Pressure : / mmHG Vent. Rate : 060 BPM Atrial Rate : 060 BPM P-R Int : 178 ms QRS Dur : 090 ms QT Int : 430 ms P-R-T Axes : 073 065 069 degrees QTc Int : 430 ms Normal sinus rhythm Normal ECG When compared with ECG of 15-JAN-2021 13:21, No significant change was found Referred By: Bruce Altamirano Electronically Signed By:Bang Kitchen
[2021-03-15 21:07] VITALS: BP 189/81; PULSE 62; RESP 18; TEMP 36.6; O2SAT 98
--- NOTE | 2021-03-15 21:09 | ED.DIZZY ---
HPI - Dizziness General Chief Complaint: Nausea/Vomiting/Diarrhea Stated Complaint: nausea diarrhea Time Seen by Provider: 03/15/21 20:29 Source: patient Mode of arrival: ambulatory Limitations: no limitations History of Present Illness HPI Narrative: Patient history of chronic nausea/diarrhea been evaluated by Gastroenterology for last 3 months with workup negative also have episode of dizziness had a CT abdomen with IV contrast in November 06 1020- she does have abdominal pain off and on. [place] the mall she felt abdominal pain and then followed by lightheadedness and weakness which lasted for few minutes now she is back to normal no chest pain no focal weakness no palpitation no headache no focal weakness Related Data Previous Rx's Medication Instructions Recorded omeprazole 20 mg capsule,delayed 20 mg PO DAILY #90 cap 01/17/20 release levothyroxine 112 mcg tablet 112 mcg PO DAILY 90 Days #90 tab 04/25/20 sertraline 50 mg tablet 50 mg PO DAILY #90 tab 04/25/20 donepezil 10 mg tablet 10 mg PO BEDTIME #30 tab 06/15/20 amlodipine 10 mg tablet 10 mg PO DAILY #90 tab 07/31/20 prochlorperazine maleate 5 mg 5 mg PO BID 10 Days #20 tab 10/23/20 tablet simvastatin 20 mg tablet 20 mg PO BEDTIME 90 Days #90 tab 10/25/20 bismuth subsalicylate 262 mg 2 tab PO QID 10 Days #80 tab 11/07/20 chewable tablet albuterol sulfate 90 mcg/actuation 2 puff PO Q6H PRN #8.5 g 01/18/21 aerosol inhaler (Ventolin HFA) budesonide-formoterol HFA 160 2 puff INHALATION BID #10.2 g 01/18/21 mcg-4.5 mcg/actuation aerosol inhaler (Symbicort) fluticasone propionate 50 2 spray INTRANASAL DAILY #16 g 01/18/21 mcg/actuation nasal spray,suspension (Flonase Allergy Relief) azithromycin 250 mg tablet See Rx Instructions PO .COMPLEX #6 03/12/21 (Zithromax) tab Allergies Allergy/AdvReac Type Severity Reaction Status Date / Time amoxicillin [AMOXICILLIN] Allergy Intermediate STOMACH Verified 02/26/21 10:33 ISSUES pollen extracts [POLLEN] Allergy Mild RUNNY Verified 02/26/21 10:33 NOSE, SNEEZING, ITCHY EYES Review of Systems Review of Systems: Yes all other systems are reviewed and are negative [facility] Past Medical History Medical History Ford's esophagus Bile salt-induced diarrhea COPD (chronic obstructive pulmonary disease) Cutaneous lupus erythematosus GERD (gastroesophageal reflux disease) Hypertension Hypothyroid Hypoxemia Osteoarthritis Vitamin D deficiency Surgical History History of cataract surgery History of cholecystectomy History of ear surgery History of eye surgery History of rectal surgery Family History Family History Father Lymphoma Lung cancer Mother Hypertension Diabetes Sister Brain cancer Social History Social History Household Members: Children Housing: House Alcohol intake: never Patient Tobacco Use Status: Former Tobacco user e-Cigarette/Vaping Use: Never Used Second Hand Smoke Exposure: No Use of substances other than those prescribed or required for medical reasons: No Advance Directives: No Advance Directives Information Provided: Yes service: No Current occupational status: retired Physical Exam Vital Signs: Vital Signs: Last Vital Signs Temp 98 F 03/15/21 21:07 Pulse 71 03/15/21 21:15 Resp 18 03/15/21 21:07 BP 170/73 H 03/15/21 21:15 Pulse Ox 98 03/15/21 21:07 BMI result Body Mass Index 22.6 Appearance: Alert. Oriented X3. No acute distress. Normal orthostatics Eyes: PERRLA, No Nystagmus no pallor or icterus ENT: Pharynx normal. Oral Mucosa moist Neck: Normal inspection. Neck supple. No carotid bruit CVS: Normal heart rate and rhythm. Pulses normal. Respiratory: No respiratory distress. Equal air entry bilateral, no wheezing/rales/rhonchi Abdomen: Soft and nontender. Bowel sounds are present, no mass palpable, no CVA tenderness Skin: Skin warm and dry. Normal skin color. Normal skin turgor. Extremities: No lower extremity edema. No calf tenderness Neuro: Oriented X 3. No motor deficit. No sensory deficit.No cerebellar signs , cranial nerves II-XII intact MDM - Dizziness MDM Narrative Medical decision making narrative: Patient with stable labs normal EKG no cardiac arrhythmias normal orthostatics with chronic dizziness off and on for last 3 months likely vasovagal secondary to pain in abdomen etiology of pain is not very clear and had a CT scan with IV contrast done on 11/25 which was negative Lab Data Attestation: I reviewed the patient's lab results. Result diagrams: 03/15/21 16:17 03/15/21 16:17 Labs: Lab Results 03/15/21 03/15/21 03/15/21 Range/Units 16:17 16:17 21:17 WBC 5.9 (4.8-10.8) X10*3/uL RBC 4.64 (4.20-5.50) X10*6/uL Hgb 10.5 L (12.0-16.0) g/dl Hct 34.7 L (37.0-47.0) % MCV 74.8 L (80.0-98.0) fL MCH 22.6 L (27.0-33.0) pg MCHC 30.3 L (31.0-35.0) g/dl RDW 17.3 H (11.0-16.0) % Plt Count 269 (160-400) X10*3/uL MPV 10.7 (9.4-12.3) fL Immature Gran % (Auto) 0.2 (0.0-0.4) % Neut % (Auto) 72.6 (45-73) % Lymph % (Auto) 19.6 L (20-40) % Hardin % (Auto) 6.9 (2-11) % Eos % (Auto) 0.2 (0-4) % Baso % (Auto) 0.5 (0-2) % Lymph # (Auto) 1.2 (1.2-4.9) X10*3/uL Hardin # (Auto) 0.4 (0.1-1.2) X10*3/uL Eos # (Auto) 0.0 (0.0-0.4) X10*3/uL Baso # (Auto) 0.0 (0.0-0.2) X10*3/uL Abs Immat Gran (auto) 0.01 (0.00-0.03) X10*3/uL Absolute Neuts (auto) 4.3 (2.0-8.3) x10*3/uL Absolute Nucleated RBC 0.000 (0.0-0.012) X10*3/uL Nucleated RBC % (auto) 0.0 (0.0-0.2) /100WBC Sodium 144 (135-145) mmol/L Potassium 4.3 (3.3-5.1) mmol/L Chloride 111 H (96-108) mmol/L Carbon Dioxide 24 (22-29) mmol/L Anion Gap 13 (12-20) BUN 17 H (9-16) mg/dL Creatinine 0.80 (0.5-1.4) mg/dL Estim Creat Clear Calc 45.1 Estimated GFR > 60 Random Glucose 101 (60-115) mg/dL Calcium 9.5 D (8.4-10.2) mg/dL Urine Color YELLOW Urine Appearance CLEAR Urine pH 6.0 (5.0-8.0) Ur Specific Gillett >= 1.030 H (1.005-1.025) Urine Protein 1+ H (NEG-TRACE) MG/DL Urine Glucose (UA) NEG (NEG) MG/DL Urine Ketones NEG (NEG) MG/DL Urine Blood TRACE (NEG) Urine Nitrite NEG (NEG) Ur Leukocyte Esterase 2+ H (NEG) Urine RBC 0-2 (0) /HPF Urine WBC 15-29 H (0-4) /HPF Ur Squamous Epith Cells TRACE /LPF Urine Bacteria TRACE /LPF Urine Mucus 1+ /LPF ECG Data Attestation: I personally reviewed and interpreted this ECG as follows: Interpretation: Now since rhythm heart rate 60 beats per minute normal intervals normal axis no acute ST-T wave changes Discharge Plan Discharge Clinical Impression: Vasovagal near-syncope Patient Disposition: Home, Self-Care Instructions: Near Syncope (ED) Additional Instructions: Drink plenty of fluids 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 Prescriptions: No Action omeprazole 20 mg capsule,delayed release(DR/EC) 20 mg PO DAILY Qty: 90 RF: 1 Hold Instructions: Doctor's Order sertraline 50 mg tablet 50 mg PO DAILY Qty: 90 RF: 3 levothyroxine 112 mcg tablet 112 mcg PO DAILY 90 Days Qty: 90 RF: 3 donepezil 10 mg tablet 10 mg PO BEDTIME Qty: 30 RF: 12 amlodipine 10 mg tablet 10 mg PO DAILY Qty: 90 RF: 3 simvastatin 20 mg tablet 20 mg PO BEDTIME 90 Days Qty: 90 RF: 2 bismuth subsalicylate 262 mg tablet,chewable 2 tab PO QID 10 Days Qty: 80 RF: 0 azithromycin [Zithromax] 250 mg tablet See Rx Instructions PO .COMPLEX Qty: 6 RF: 0 prochlorperazine maleate 5 mg tablet 5 mg PO BID 10 Days Qty: 20 RF: 0 albuterol sulfate [Ventolin HFA] 90 mcg/actuation HFA aerosol inhaler 2 puff PO Q6H PRN (Reason: shortness of breath or wheezing) Qty: 8.5 RF: 0 budesonide-formoterol [Symbicort] 160-4.5 mcg/actuation HFA aerosol inhaler 2 puff inhalation BID Qty: 10.2 RF: 8 fluticasone propionate [Flonase Allergy Relief] 50 mcg/actuation spray,suspension 2 spray intranasal DAILY Qty: 16 RF: 2 Interventions: ED Discharge Assessment Last Done: 03/15/21 21:41 Discharge Date/Time: 03/15/21 21:41
[2021-03-15 21:11] VITALS: BP 189/81; PULSE 62
[2021-03-15 21:14] VITALS: BP 186/85; PULSE 65
[2021-03-15 21:15] VITALS: BP 170/73; PULSE 71
[2021-03-15 21:24] LABS: Appearance Urine CLEAR; Color Urine YELLOW; Glucose Urine UA NEG (NEG); Leukocyte Esterase Urine 2+ (NEG); Nitrite Urine NEG (NEG); Specific Gravity - Urine >= 1.030 (1.005-1.025); UACC Culture Trigger YES; Urine Blood TRACE (NEG); Urine Ketones NEG (NEG); Urine Protein 1+ MG/DL (NEG-TRACE)
--- NOTE | 2021-03-15 21:37 | PC.NURSE ---
pt a&o, no sob or chest pain at this time. Ekg, labs and ortho statics completed. Plan is for pt to be discharged home . Will educated on discharge plan.
[2021-03-15 21:44] LABS: RBC Urine 0-2 /HPF (0); Squamous Epithelial Cell Urine TRACE /LPF; UACC CULT YES
[2021-03-15 21:45] LABS: Bacteria Urine TRACE /LPF; Mucus Urine 1+ /LPF
== END 2021-03-15 21:41 | disposition home or self-care (01) ==
PROVIDERS: Emergency Medicine; Emergency Provider Internal Medicine; PCP Internal Medicine
DX: R55 Syncope and collapse (principal); R11.2 Nausea with vomiting, unspecified; R53.1 Weakness
CPT/HCPCS: 36415; 80048; 81001; 85025; 87086; 93005; 99283; 99285

== ENCOUNTER → 2021-03-26 10:45 | Outpatient (BNVA) | payer MEDICARE, SELFPAY | PROVIDERS: PCP Internal Medicine; Visit Provider Internal Medicine | DX: J30.9 Allergic rhinitis, unspecified (principal); J43.1 Panlobular emphysema | CPT/HCPCS: 99212 ==

== ENCOUNTER 2021-05-03 10:39 | Outpatient (REF) | payer MEDICARE, SELFPAY ==
--- NOTE | ~2021-05-03 | MM_ITS ---
EXAMINATION: BONE DENSITOMETRY CLINICAL INDICATION: Encounter for screening for osteoporosis. COMPARISON: Previous BD dated 05/09/2017 and baseline BD dated 02/06/2006. TECHNIQUE: Using a [employer] DXA System (software version: 13.1) manufactured by [employer], dual-energy x-ray absorptiometry was performed of the lumbar spine and left hip. The images are of good technical quality. Summary results are attached. FINDINGS: AP SPINE L1-L4: Current: BMD 0.874 g/cm2, Z-score -0.4, T-score -2.6, osteoporosis, 12.5% decrease from previous, 21.9% decrease from baseline (<5% change is not significant). Prior: BMD 0.999 g/cm2. Baseline: BMD 1.119 g/cm2. LEFT FEMUR, NECK: Current: BMD 0.708 g/cm2, Z-score -0.1, T-score -2.4, osteopenia. Prior: BMD 0.739 g/cm2. Baseline: BMD 0.880 g/cm2. LEFT FEMUR, TOTAL: Current: BMD 0.749 g/cm2, Z-score 0.1, T-score -2.1, osteopenia, 12.2% decrease from previous, 20.9% decrease from baseline (<5% change is not significant). Prior: BMD 0.853 g/cm2. Baseline: BMD 0.947 g/cm2. IDENTIFIED RISK FACTORS: Dementia, recurrent falls, height loss, low body weight, secondary osteoporosis, menopause. HISTORY OF FRACTURE: None listed. MEDICATIONS: Vitamin D. MM/XR DEXA axial skeleton IMPRESSION: 1. DIAGNOSIS: Osteoporosis based on the lowest T-score value of -2.6 in the lumbar spine applying World Health Organization criteria. 2. 10-YEAR FRACTURE RISK PREDICTION, FRAX: According to the guidelines, FRAX calculation should only be performed on patients in the osteopenia bone density category. 3. Treatment Recommendations: NOF guidelines recommend consideration for treatment in postmenopausal women and men age 50 and older presenting with the following: -A hip or vertebral (clinical or morphometric) fracture. -T-score less than or equal to -2.5 at the femoral neck or spine after appropriate evaluation to exclude secondary causes. -Low bone mass at the hip or spine and a 10-year fracture probability by FRAX of greater than or equal to 3% for hip fracture or greater than or equal to 20% for major osteoporotic fracture based on the [place] adapted WHO algorithm. 4. Other Recommendations: All treatment decisions require clinical judgment and consideration of individual patient factors, including patient preferences, comorbidities, previous drug use, risk factors not captured in the FRAX model (e.g. frailty, falls, vitamin D deficiency, increased bone turnover, interval significant decline in bone density) and possible under or overestimation of fracture risk by FRAX. Additional medical evaluation for secondary cause of low bone mineral density may be appropriate. FUTURE SCAN RECOMMENDATION: People with diagnosed cases of osteoporosis or at high risk for fracture should have regular bone mineral density tests. For patients eligible for Medicare, routine testing is allowed once every 2 years. The testing frequency can be increased to one year for patients who have rapidly progressing disease, those who are receiving or discontinuing medical therapy to restore bone mass, or have additional risk factors.
== END 2021-05-03 10:40 | disposition home or self-care (01) ==
LOC: HO.MAMMO 10:39
PROVIDERS: PCP Internal Medicine; Visit Provider Nurse Practitioner Acute Care
DX: Z13.820 Encounter for screening for osteoporosis (principal); M85.80 Other specified disorders of bone density and structure, unspecified site; Z78.0 Asymptomatic menopausal state; Z79.899 Other long term (current) drug therapy
CPT/HCPCS: 77080

== ENCOUNTER 2021-06-25 09:57 | Outpatient (REF) | payer MEDICARE, SELFPAY ==
[2021-06-25 10:55] LABS: Hematocrit 36.2 % (37.0-47.0); Hemoglobin 10.7 g/dl (12.0-16.0); Mean Corpuscular HGB Conc 29.6 g/dl (31.0-35.0); Mean Corpuscular Hemoglobin 21.6 pg (27.0-33.0); Mean Platelet Volume 10.2 fL (9.4-12.3); Platelet Count 295 X10*3/uL (160-400); Red Blood Count 4.96 X10*6/uL (4.20-5.50); Red Cell Distribution Width 17.9 % (11.0-16.0); White Blood Count 4.9 X10*3/uL (4.8-10.8)
[2021-06-25 11:35] LABS: Alanine Aminotransferase 12 U/L (0-31); Alkaline Phosphatase 85 U/L (39-117); Anion Gap 15 (12-20); Aspartate Amino Transferase 16 U/L (5-31); Bilirubin Total 0.4 mg/dL (0.0-1.0); Blood Urea Nitrogen 21 mg/dL (9-16); Calcium 9.9 mg/dL (8.4-10.2); Carbon Dioxide 24 mmol/L (22-29); Chloride 106 mmol/L (96-108); Cholesterol 185 mg/dL; Estimated Glomerular Filt Rate > 60; Glucose Fasting 93 mg/dL (60-99); HDL Cholesterol 56 mg/dL; LDL Cholesterol Calculated 104 mg/dl; Potassium 4.5 mmol/L (3.3-5.1); Sodium 140 mmol/L (135-145); Total Protein 7.5 g/dL (6.5-8.0); Triglycerides 127 mg/dL
[2021-06-25 13:06] LABS: Appearance Urine CLEAR; Color Urine YELLOW; Glucose Urine UA NEG (NEG); Leukocyte Esterase Urine NEG (NEG); Nitrite Urine NEG (NEG); UACC Culture Trigger NO; Urine Blood 3+ (NEG); Urine Ketones NEG (NEG); Urine Protein NEG (NEG-TRACE)
[2021-06-25 13:26] LABS: Squamous Epithelial Cell Urine 1+ /LPF; WBC Urine 0-2 /HPF (0-4)
== END 2021-06-25 09:58 | disposition home or self-care (01) ==
LOC: HO.LAB 09:57
PROVIDERS: Nurse Practitioner Acute Care; PCP Internal Medicine; Visit Provider Nurse Practitioner Family
DX: M54.9 Dorsalgia, unspecified (principal); D64.9 Anemia, unspecified; E78.00 Pure hypercholesterolemia, unspecified
CPT/HCPCS: 36415; 80053; 80061; 81001; 85027; 86140

== ENCOUNTER 2021-07-25 14:45 | Emergency (ER) | payer MEDICARE, SELFPAY ==
--- NOTE | ~2021-07-25 | XR_ITS ---
EXAMINATION: XR CHEST CLINICAL INFORMATION: Syncope and weakness COMPARISON: Previous chest x-ray most recent October 2020 TECHNIQUE: Frontal view of the chest was obtained. FINDINGS: The cardiac and mediastinal contours are stable. The lungs are clear. There is no pleural effusion or pneumothorax. There are degenerative changes of the spine. XR/XR chest 1V IMPRESSION: No evidence for acute disease in the chest.
--- NOTE | 2021-07-25 14:55 | ECG_ITS ---
Test Reason : syncope Blood Pressure : / mmHG Vent. Rate : 065 BPM Atrial Rate : 065 BPM P-R Int : 162 ms QRS Dur : 090 ms QT Int : 406 ms P-R-T Axes : 077 069 074 degrees QTc Int : 422 ms Normal sinus rhythm Normal ECG When compared with ECG of 15-MAR-2021 20:53, No significant change was found Referred By: Generic ED Physician Electronically Signed By:ALAN PATTON MD
[2021-07-25 15:18] VITALS: BP 129/63; PULSE 74; RESP 18; TEMP 36.6; O2SAT 94; BMI 21.3
[2021-07-25 15:19] LABS: Imm Gran Abs Auto 0.02 X10*3/uL (0.00-0.03); Imm Gran Pct Auto 0.3 % (0.0-0.4); SCAN SMEAR FLAG 1
[2021-07-25 15:29] LABS: Lymphocytes Absolute Auto 1.4 X10*3/uL (1.2-4.9); Lymphocytes Percent Auto 21.2 % (20-40); Mean Corpuscular Volume 71.2 fL (80.0-98.0); NRBC Pct Auto 0.3 /100WBC (0.0-0.2); White Blood Count 6.7 X10*3/uL (4.8-10.8)
[2021-07-25 15:31] LABS: Basophils Percent Auto 0.4 % (0-2); Eosinophils Percent Auto 0.6 % (0-4); Hematocrit 31.1 % (37.0-47.0); Hemoglobin 9.3 g/dl (12.0-16.0); Mean Corpuscular HGB Conc 29.9 g/dl (31.0-35.0); Mean Corpuscular Hemoglobin 21.3 pg (27.0-33.0); Monocytes Absolute Auto 0.5 X10*3/uL (0.1-1.2); Monocytes Percent Auto 7.3 % (2-11); Neutrophils Absolute Auto 4.7 x10*3/uL (2.0-8.3); Neutrophils Percent Auto 70.2 % (45-73); Platelet Count 240 X10*3/uL (160-400); Red Blood Count 4.37 X10*6/uL (4.20-5.50); Red Cell Distribution Width 18.4 % (11.0-16.0)
[2021-07-25 15:32] LABS: Anion Gap 12 (12-20); Blood Urea Nitrogen 21 mg/dL (9-16); Calcium 9.1 mg/dL (8.4-10.2); Carbon Dioxide 24 mmol/L (22-29); Chloride 108 mmol/L (96-108); Creatinine Clr Calc Pharmacy 34.2; Estimated Glomerular Filt Rate 51; Glucose Random 90 mg/dL (60-115); Potassium 4.4 mmol/L (3.3-5.1); Sodium 140 mmol/L (135-145)
[2021-07-25 15:33] LABS: MANUAL DIFF FLAG NO; PLT ABN DIST 1
[2021-07-25 15:40] LABS: Troponin-I High Sensitivity 3.7 ng/L (<3.5-17.0)
[2021-07-25 17:33] VITALS: BP 176/72; PULSE 78; RESP 18; O2SAT 95
--- NOTE | 2021-07-25 17:52 | PC.NURSE ---
patient requesting to leave at this time. reports feeling improved. patient in no distress. patient has follow up scheduled with PCP. patient aware to return to ED if symptoms should change. alert and oriented on departure
== END 2021-07-25 19:04 | disposition left against medical advice (07) ==
PROVIDERS: Emergency Provider Emergency Medicine
DX: R53.1 Weakness (principal)
CPT/HCPCS: 36415; 71045; 80048; 84484; 85025; 93005; 99283

== ENCOUNTER 2021-07-26 13:02 | Outpatient (REF) | payer MEDICARE, SELFPAY ==
--- NOTE | 2021-07-26 13:05 | EEG_ITS ---
The waking background activity consists of a moderate voltage symmetrical posterior alpha of 9 to 10 hertz intermixed with low-voltage fast frequencies anteriorly. Occasional sharp transients and small spikes are seen from the left temporal region. Recurrent paroxysmal delta discharges lasting between 2 and 4 seconds are seen on multiple occasions over both hemispheres with high voltage delta with sharp component more prominent over the left hemisphere. No clinical symptoms are observed. Arousals are unremarkable. During sleep, symmetrical sleep spindles and vertex sharp transients developed over both hemispheres. IMPRESSION: This is an abnormal 24-hour ambulatory EEG consistent with a generalized seizure disorder, possibly originating in the left hemisphere. Clinical correlation is suggested. MD MIKE Márquez/JOHN / [id number]
== END 2021-07-26 13:03 | disposition home or self-care (01) ==
LOC: HO.NEURO 13:02
PROVIDERS: PCP Internal Medicine; Visit Provider Psychiatry & Neurology Neurology
DX: R56.9 Unspecified convulsions (principal)
CPT/HCPCS: 95708

== ENCOUNTER 2021-08-24 09:07 | Outpatient (REF) | payer MEDICARE, SELFPAY ==
[2021-08-24 16:42] LABS: Urine Cytology See Pathology rpt
== END 2021-08-24 09:08 | disposition home or self-care (01) ==
LOC: HO.LAB 09:07
DX: R31.9 Hematuria, unspecified (principal)
CPT/HCPCS: 88112; 99202

== ENCOUNTER 2021-09-07 15:12 | Outpatient (REF) | payer MEDICARE, SELFPAY ==
--- NOTE | ~2021-09-07 | XR_ITS ---
EXAMINATION: XR KNEE, LEFT XR KNEE, RIGHT CLINICAL INFORMATION: Pain COMPARISON: 11/24/2018 TECHNIQUE: 4 views of each knee, including upright AP and lateral views. FINDINGS: Right knee: No fracture or subluxation. Mild medial compartment joint space narrowing. Small marginal osteophytes of the patellofemoral compartment. No significant joint effusion. Enthesophyte formation of the patella. Left knee: No fracture or subluxation. Mild medial compartment joint space narrowing. Small marginal osteophytes of the patella. Enthesophyte formation at the patella. No joint effusion. XR/XR knee RT 4V IMPRESSION: Mild degenerative changes of both knees. Similar to prior.
--- NOTE | ~2021-09-07 | XR_ITS ---
EXAMINATION: XR KNEE, LEFT XR KNEE, RIGHT CLINICAL INFORMATION: Pain COMPARISON: 11/24/2018 TECHNIQUE: 4 views of each knee, including upright AP and lateral views. FINDINGS: Right knee: No fracture or subluxation. Mild medial compartment joint space narrowing. Small marginal osteophytes of the patellofemoral compartment. No significant joint effusion. Enthesophyte formation of the patella. Left knee: No fracture or subluxation. Mild medial compartment joint space narrowing. Small marginal osteophytes of the patella. Enthesophyte formation at the patella. No joint effusion. XR/XR knee LT 4V IMPRESSION: Mild degenerative changes of both knees. Similar to prior.
== END 2021-09-07 15:13 | disposition home or self-care (01) ==
LOC: HO.XRAY 15:12
PROVIDERS: Visit Provider Nurse Practitioner Family
DX: M25.561 Pain in right knee (principal); M25.562 Pain in left knee
CPT/HCPCS: 73564

== ENCOUNTER 2021-09-17 09:03 | Inpatient (IN) | payer MEDICARE, SELFPAY ==
[2021-09-17] VITALS (11 sets, daily range): BP systolic 105–181; BP diastolic 51–79; PULSE 67–91; RESP 12–20; TEMP 35.8–37.3; O2SAT 85–100; BMI 23.3; BMI 22.1
--- NOTE | ~2021-09-17 | XR_ITS ---
EXAMINATION: XR CHEST CLINICAL INFORMATION: Shortness of breath COMPARISON: Previous chest x-ray most recent July 2021 TECHNIQUE: Frontal view of the chest was obtained. FINDINGS: The cardiac and mediastinal contours are stable. The lungs are well inflated. There is question of bronchial wall thickening at the lung bases. No definite pneumonia is seen. There is no pleural effusion or pneumothorax. No acute bone abnormality. XR/XR chest 1V IMPRESSION: Well-inflated lungs. Question bronchial wall thickening at the lung bases. No definite pneumonia.
--- NOTE | ~2021-09-17 | US_ITS ---
EXAMINATION: US ABDOMEN LIMITED CLINICAL INFORMATION: Elevated tests. COMPARISON: Previous abdominal ultrasound May [address] of the abdomen and pelvis November 2020 TECHNIQUE: Real-time imaging of the right upper quadrant abdominal viscera. Exam is limited due to patient mobility and inability to suspend respiration FINDINGS: PANCREAS: Not well visualized due to bowel gas LIVER: Normal. The liver is normal in size. The liver contour is normal. Parenchymal echogenicity is normal. There is mild intrahepatic biliary duct dilatation. This appears similar to previous CT November 2020. No focal liver lesion. GALLBLADDER: Normal. The gallbladder is physiologically distended without evidence of stones, sludge, polyps, wall thickening or pericholecystic fluid. COMMON BILE DUCT: Not well visualized. RIGHT KIDNEY: There is a 6 mm cyst in the lower pole. No hydronephrosis. No renal calculi or other focal parenchymal lesions. The kidney measures 9.5 cm in maximum dimension. FREE FLUID: None. US/US abdomen limited IMPRESSION: Limited exam. Intrahepatic biliary duct dilatation. This is similar to previous exams. The common bile duct and pancreas are not well visualized. Small right renal cyst.
--- NOTE | 2021-09-17 09:13 | ECG_ITS ---
Test Reason : SOB Blood Pressure : / mmHG Vent. Rate : 076 BPM Atrial Rate : 076 BPM P-R Int : 156 ms QRS Dur : 084 ms QT Int : 380 ms P-R-T Axes : 073 065 065 degrees QTc Int : 427 ms Normal sinus rhythm Normal ECG When compared with ECG of 25-JUL-2021 14:55, No significant change was found Referred By: Josef Smith Electronically Signed By:Bang Kitchen
--- NOTE | 2021-09-17 09:15 | ED_ITS ---
HPI - SOB/Dyspnea General Chief Complaint: Dyspnea Stated Complaint: WEAK,SOB X'S 5 DAYS PER EMS Time Seen by Provider: 09/17/21 09:12 Source: patient and EMS Mode of arrival: EMS Limitations: no limitations History of Present Illness HPI Narrative: A 76-year-old female came in by ambulance for evaluation of generalized weakness, deconditioning, shortness of breath. Patient with history of COPD use supplemental oxygen at home patient usually have in accurate pulse oximetry reading because Raynaud's syndrome, patient been having runny nose and congestion, generalized body ache, coughing, progressive shortness of breath for the past 4 days, as per EMS initial O2 sat was 87% on room air patient was placed on 4 L of nasal cannula and O2 with improved to 93%. Some lower extremity swelling. Related Data Home Medications Medication Instructions Recorded Confirmed divalproex 250 mg tablet,delayed 250 mg PO BID 08/24/21 09/17/21 release cetirizine 10 mg capsule 10 mg PO BEDTIME PRN Allergy 09/05/21 09/17/21 Symptoms ferrous gluconate 240 mg (27 mg 240 mg PO DAILY 09/05/21 09/17/21 iron) tablet (Ferate) ibuprofen 600 mg tablet 600 mg PO Q8H PRN Pain, Moderate 09/17/21 09/17/21 prochlorperazine maleate 5 mg 5 mg PO BID PRN Nausea And Vomiting 09/17/21 09/17/21 tablet Previous Rx's Medication Instructions Recorded omeprazole 20 mg capsule,delayed 20 mg PO DAILY #90 caps 01/17/20 release amlodipine 10 mg tablet 10 mg PO DAILY #90 tabs 07/31/20 simvastatin 20 mg tablet 20 mg PO BEDTIME 90 days #90 tabs 10/25/20 levothyroxine 112 mcg tablet 112 mcg PO DAILY 90 days #90 tabs 04/14/21 sertraline 50 mg tablet 50 mg PO DAILY #90 tabs 04/14/21 cholecalciferol (vitamin D3) 50 50 mcg PO DAILY #30 caps 05/04/21 mcg (2,000 unit) capsule albuterol sulfate 90 mcg/actuation 2 puff PO Q6H PRN shortness of 09/05/21 aerosol inhaler (Ventolin HFA) breath or wheezing #8.5 grams fluticasone propionate 50 2 spray intranasal DAILY #16 grams 09/05/21 mcg/actuation nasal spray,suspension (Flonase Allergy Relief) Allergies Allergy/AdvReac Type Severity Reaction Status Date / Time amoxicillin [AMOXICILLIN] Allergy Intermediate STOMACH Verified 09/05/21 10:41 ISSUES pollen extracts [POLLEN] Allergy Mild RUNNY Verified 09/05/21 10:41 NOSE, SNEEZING, ITCHY EYES Review of Systems Review of Systems: All other systems are reviewed and are negative Constitutional: Reports as per HPI and Reports no additional constitutional complaints Eyes: Reports as per HPI and Reports no additional eye complaints Reports system reviewed and no additional complaints, except as documented Cardiovascular: Reports as per HPI and Reports no additional cardiovascular complaints Respiratory: Reports as per HPI and Reports no additional respiratory complaints Gastrointestinal: Reports as per HPI and Reports no additional gastrointestinal complaints Genitourinary: Reports no additional female genitourinary complaints Musculoskeletal: Reports no additional musculoskeletal complaints Skin/Breast: Reports system reviewed and no additional complaints, except as docu Psychiatric: Reports no additional psychiatric complaints Endocrine: Reports no additional endocrine complaints Hematologic/Lymphatic: Reports no additional hematologic/lymphatic complaints Allergic/Immunologic: Reports no additional allergic/immunologic complaints Reports system reviewed and no additional complaints, except as documented and Reports Abnormal speech present [facility] Past Medical History Medical History Allergic rhinitis Ford's esophagus Bile salt-induced diarrhea COPD (chronic obstructive pulmonary disease) Cutaneous lupus erythematosus GERD (gastroesophageal reflux disease) Hypertension Hypothyroid Hypoxemia Osteoarthritis Vitamin D deficiency Surgical History History of cataract surgery History of cholecystectomy History of ear surgery History of eye surgery History of rectal surgery Family History Family History Father Lymphoma Lung cancer Mother Hypertension Diabetes Sister Brain cancer Social History Social History Household Members: Children Housing: House Alcohol intake: former Patient Tobacco Use Status: Former Tobacco user e-Cigarette/Vaping Use: Never Used Second Hand Smoke Exposure: No Advance Directives: No Advance Directives Information Provided: No service: No Current occupational status: retired Cognitive needs: No Hearing needs: Yes (hearing aide) Vision needs: Yes (Glasses) Physical Exam Vital Signs: Vital Signs: Last Vital Signs Temp 99.2 F 09/17/21 09:14 Pulse 91 09/17/21 10:47 Resp 19 09/17/21 10:47 BP 150/59 H 09/17/21 10:47 Pulse Ox 92 09/17/21 10:47 O2 Del Method 09/17/21 10:47 O2 Flow Rate 2 09/17/21 10:47 Oxygen Flow Rate 4 09/17/21 09:14 BMI result Body Mass Index 23.3 Vital signs have been reviewed as appeared to be correct. Blood pressure normal. Heart rate normal. Respiration rate normal. Temperature normal. Oxygen saturation normal. Appearance: Alert. Oriented X3. No acute distress. Head: Normal external exam. Normocephalic. Atraumatic. No [place] signs noted. No raccoon eyes noted Eyes: PERRLA. EOMI. Conjunctiva and sclera normal. Eyelids normal. ENT: TM's Normal. Pharynx normal. Uvula midline. Moist mucous membranes. No trismus noted. No drooling noted. No muffled voice noted. Neck: Normal inspection. Neck supple. FROM. No adenopathy. Thyroid Normal. No meningeal signs. No neck mass noted. CVS: Normal heart rate and rhythm. Heart sound normal. No murmurs noted. Pulses normal throughout. Respiratory: No respiratory distress. Painless inspiration. Breath sounds normal. Diffuse mild expiratory wheezing No accessory muscle usage noted or decreased air movement noted. Abdomen: Soft and nontender. Bowel sounds normal in all 4 quadrants. No distention noted. No organomegaly noted. No visible injury noted. Back: No CVA tenderness. Full range of motion noted. Skin: Skin warm and dry. Normal skin color. Normal skin turgor. No rashes/lesions/lacerations noted. Extremities: No lower extremity edema. Extremities exhibit normal range of motion. Extremities nontender. Neuro: Oriented X 3. Cranial nerve exam: II-XII are grossly intact No motor deficit. No sensory deficit. Reflexes normal. Course Course Course Narrative: Assessment and plan. 76-year-old female came in with shortness of breath and coughing hypoxic on air 87% improved with 4 L of oxygen, patient received Solu-Medrol, bronchodilator feels slightly better. Acute elevation of LFTs will check liver ultrasound MDM - SOB/Dyspnea Medical Records Attestation: I reviewed the patient's medical records. Lab Data Attestation: I reviewed the patient's lab results. Result diagrams: 09/17/21 10:14 09/17/21 10:14 Labs: Lab Results 09/17/21 09/17/21 09/17/21 Range/Units 10:14 10:14 10:14 WBC 10.3 (4.8-10.8) X10*3/uL RBC 4.96 (4.20-5.50) X10*6/uL Hgb 11.9 L D (12.0-16.0) g/dl Hct 38.2 D (37.0-47.0) % MCV 77.0 L (80.0-98.0) fL MCH 24.0 L (27.0-33.0) pg MCHC 31.2 (31.0-35.0) g/dl RDW 21.1 H (11.0-16.0) % Plt Count 278 (160-400) X10*3/uL MPV Not Reportable Immature Gran % (Auto) 0.5 H (0.0-0.4) % Neut % (Auto) 72.0 (45-73) % Lymph % (Auto) 16.1 L (20-40) % [place] % (Auto) 10.7 (2-11) % Eos % (Auto) 0.3 (0-4) % Baso % (Auto) 0.4 (0-2) % Lymph # (Auto) 1.7 (1.2-4.9) X10*3/uL [place] # (Auto) 1.1 (0.1-1.2) X10*3/uL Eos # (Auto) 0.0 (0.0-0.4) X10*3/uL Baso # (Auto) 0.0 (0.0-0.2) X10*3/uL Abs Immat Gran (auto) 0.05 H (0.00-0.03) X10*3/uL Absolute Neuts (auto) 7.4 (2.0-8.3) x10*3/uL Absolute Nucleated RBC 0.000 (0.0-0.012) X10*3/uL Nucleated RBC % (auto) 0.0 (0.0-0.2) /100WBC Sodium 135 (135-145) mmol/L Potassium 3.8 (3.3-5.1) mmol/L Chloride 98 (96-108) mmol/L Carbon Dioxide 27 (22-29) mmol/L Anion Gap 14 (12-20) BUN 11 (9-16) mg/dL Creatinine 0.77 (0.5-1.4) mg/dL Estim Creat Clear Calc 46.2 Estimated GFR > 60 Random Glucose 113 (60-115) mg/dL Calcium 9.1 (8.4-10.2) mg/dL Total Bilirubin 0.9 (0.0-1.0) mg/dL Direct Bilirubin 0.4 (0.0-0.5) mg/dL AST 156 H (5-31) U/L ALT 123 H (0-31) U/L Alkaline Phosphatase 162 H D (39-117) U/L Troponin I High Sens 6.1 D (<3.5-17.0) ng/L B-Natriuretic Peptide (<100) pg/mL Total Protein 7.3 (6.5-8.0) g/dL Albumin 3.5 (3.5-5.0) g/dL Lipase 30 (8-78) U/L // Range/Units 10:14 WBC (4.8-10.8) X10*3/uL RBC (4.20-5.50) X10*6/uL Hgb (12.0-16.0) g/dl Hct (37.0-47.0) % MCV (80.0-98.0) fL MCH (27.0-33.0) pg MCHC (31.0-35.0) g/dl RDW (11.0-16.0) % Plt Count (160-400) X10*3/uL MPV Immature Gran % (Auto) (0.0-0.4) % Neut % (Auto) (45-73) % Lymph % (Auto) (20-40) % [place] % (Auto) (2-11) % Eos % (Auto) (0-4) % Baso % (Auto) (0-2) % Lymph # (Auto) (1.2-4.9) X10*3/uL [place] # (Auto) (0.1-1.2) X10*3/uL Eos # (Auto) (0.0-0.4) X10*3/uL Baso # (Auto) (0.0-0.2) X10*3/uL Abs Immat Gran (auto) (0.00-0.03) X10*3/uL Absolute Neuts (auto) (2.0-8.3) x10*3/uL Absolute Nucleated RBC (0.0-0.012) X10*3/uL Nucleated RBC % (auto) (0.0-0.2) /100WBC Sodium (135-145) mmol/L Potassium (3.3-5.1) mmol/L Chloride (96-108) mmol/L Carbon Dioxide (22-29) mmol/L Anion Gap (12-20) BUN (9-16) mg/dL Creatinine (0.5-1.4) mg/dL Estim Creat Clear Calc Estimated GFR Random Glucose (60-115) mg/dL Calcium (8.4-10.2) mg/dL Total Bilirubin (0.0-1.0) mg/dL Direct Bilirubin (0.0-0.5) mg/dL AST (5-31) U/L ALT (0-31) U/L Alkaline Phosphatase (39-117) U/L Troponin I High Sens (<3.5-17.0) ng/L B-Natriuretic Peptide 111 H (<100) pg/mL Total Protein (6.5-8.0) g/dL Albumin (3.5-5.0) g/dL Lipase (8-78) U/L Imaging Data Chest x-ray: Attestation: I personally reviewed and interpreted this imaging study as follows: Radiologist's impression: No acute thoracic pathology. Discharge Plan Discharge Clinical Impression: COPD (chronic obstructive pulmonary disease), LFT elevation Patient Disposition: Admitted As Inpatient Prescriptions: No Action omeprazole 20 mg capsule,delayed release(DR/EC) 20 mg PO DAILY Qty: 90 1RF Hold Instructions: Doctor's Order amlodipine 10 mg tablet 10 mg PO DAILY Qty: 90 3RF simvastatin 20 mg tablet 20 mg PO BEDTIME 90 Days Qty: 90 2RF levothyroxine 112 mcg tablet 112 mcg PO DAILY 90 Days Qty: 90 3RF sertraline 50 mg tablet 50 mg PO DAILY Qty: 90 3RF cholecalciferol (vitamin D3) 50 mcg (2,000 unit) capsule 50 mcg PO DAILY Qty: 30 2RF prochlorperazine maleate 5 mg tablet 5 mg PO BID PRN (Reason: Nausea And Vomiting) ibuprofen 600 mg tablet 600 mg PO Q8H PRN (Reason: Pain, Moderate) fluticasone propionate [Flonase Allergy Relief] 50 mcg/actuation spray,suspension 2 spray intranasal DAILY Qty: 16 11RF Rx Instructions: administer into each nostril ferrous gluconate [Ferate] 240 mg (27 mg iron) tablet 240 mg PO DAILY cetirizine 10 mg capsule 10 mg PO BEDTIME PRN (Reason: Allergy Symptoms) albuterol sulfate [Ventolin HFA] 90 mcg/actuation HFA aerosol inhaler 2 puff PO Q6H PRN (Reason: shortness of breath or wheezing) Qty: 8.5 1RF Rx Instructions: substitute allowed divalproex 250 mg tablet,delayed release (DR/EC) 250 mg PO BID
[2021-09-17] MEDS: Albuterol/Iprat 2.5/0.5MG 3 ML AMPUL.NEB INHALE ×2 (09:31→20:10)
[2021-09-17] MEDS: Albuterol Sulfate (0.083%) 2.5 MG/3 ML VIAL.NEB INHALE (09:32)
--- NOTE | 2021-09-17 09:34 | PC.NURSE ---
A/0 X4 . lung sounds diminished throughout . unlabored breathing . patient skin pink,dry, warm and intact. appears comfortable no visible distress. receiving updraft treatment at this time . normal sinus at this time on the monitor at this time .
[2021-09-17] MEDS: methylPREDNISolone Sod Succ 125 MG/2 ML VIAL IVPUSH (09:51)
--- NOTE | 2021-09-17 10:00 | PHA.MEDREC ---
Pharmacy Consult ? Medication Reconciliation Pharmacy has completed the medication reconciliation. SPOKE WITH PT AND FAMILY MEMBER AT BEDSIDE
[2021-09-17 10:20] LABS: MANUAL DIFF FLAG NO
[2021-09-17 10:25] LABS: Basophils Percent Auto 0.4 % (0-2); Eosinophils Percent Auto 0.3 % (0-4); Hematocrit 38.2 % (37.0-47.0); Hemoglobin 11.9 g/dl (12.0-16.0); Imm Gran Abs Auto 0.05 X10*3/uL (0.00-0.03); Imm Gran Pct Auto 0.5 % (0.0-0.4); Lymphocytes Absolute Auto 1.7 X10*3/uL (1.2-4.9); Lymphocytes Percent Auto 16.1 % (20-40); Mean Corpuscular HGB Conc 31.2 g/dl (31.0-35.0); Monocytes Absolute Auto 1.1 X10*3/uL (0.1-1.2); Monocytes Percent Auto 10.7 % (2-11); Neutrophils Absolute Auto 7.4 x10*3/uL (2.0-8.3); Platelet Count 278 X10*3/uL (160-400); Red Blood Count 4.96 X10*6/uL (4.20-5.50); Red Cell Distribution Width 21.1 % (11.0-16.0); White Blood Count 10.3 X10*3/uL (4.8-10.8)
[2021-09-17 10:41] LABS: Alanine Aminotransferase 123 U/L (0-31); Albumin Level 3.5 g/dL (3.5-5.0); Alkaline Phosphatase 162 U/L (39-117); Anion Gap 14 (12-20); Aspartate Amino Transferase 156 U/L (5-31); Bilirubin Direct 0.4 mg/dL (0.0-0.5); Bilirubin Total 0.9 mg/dL (0.0-1.0); Blood Urea Nitrogen 11 mg/dL (9-16); Calcium 9.1 mg/dL (8.4-10.2); Carbon Dioxide 27 mmol/L (22-29); Chloride 98 mmol/L (96-108); Creatinine Clr Calc Pharmacy 46.2; Estimated Glomerular Filt Rate > 60; Glucose Random 113 mg/dL (60-115); Lipase 30 U/L (8-78); Potassium 3.8 mmol/L (3.3-5.1); Sodium 135 mmol/L (135-145); Total Protein 7.3 g/dL (6.5-8.0)
[2021-09-17 10:47] LABS: B Type Natriuretic Peptide 111 pg/mL (<100); Troponin-I High Sensitivity 6.1 ng/L (<3.5-17.0)
[2021-09-17 11:28] LABS: Influenza A PCR NEGATIVE (Negative); Influenza B PCR NEGATIVE (Negative); Resp Syncy Virus RNA Qual PCR NEGATIVE (Negative); SARS COV2 PCR INHOUSE NEGATIVE (Negative)
[2021-09-17] MEDS: guaiFEN/Codeine SF 200/20/10ML 10 ML LIQUID PO (11:49)
[2021-09-17 12:23] LABS: Procalcitonin 0.09 ng/mL
--- NOTE | 2021-09-17 13:46 | P.HPHOSP_ITS ---
History of Present Illness Date of Service: 09/17/21 Chief Complaint: shortness of breath 76yo F with COPD, on 2L of home O2 prn; HTN; and hypothyroidism presented to the [facility] ED today with 4 days of worsening dyspnea, productive cough, nasal congestion, and wheezing. Per EMS, her RA SaO2 was 87% and she was placed on 4L of O2 via NC; however, her SaO2 may be inaccurate due to history of Raynaud's phenomenon. In the ED, she was given nebulized bronchodilators as well as IV methlylprednisolone. CXR showed bibasilar bronchial wall thickening. Covid-19 SENA negative. Also noted to have elevated transaminases with AST 156 and ALT 123; previously in normal range. Pt denies anything more than rare, minimal EtOH intake and none recently. She was started on Depakote a few weeks ago for newly diagnosed seizure disorder. [facility] Medical History Allergic rhinitis Ford's esophagus Bile salt-induced diarrhea COPD (chronic obstructive pulmonary disease) Cutaneous lupus erythematosus GERD (gastroesophageal reflux disease) Hypertension Hypothyroid Hypoxemia Osteoarthritis Vitamin D deficiency Family History Father Lymphoma Lung cancer Mother Hypertension Diabetes Sister Brain cancer Surgical History History of cataract surgery History of cholecystectomy History of ear surgery History of eye surgery History of rectal surgery Social History Household Members: Children Housing: House Alcohol intake: former Patient Tobacco Use Status: Former Tobacco user e-Cigarette/Vaping Use: Never Used Second Hand Smoke Exposure: No Advance Directives: No Advance Directives Information Provided: No service: No Current occupational status: retired Cognitive needs: No Hearing needs: Yes (hearing aide) Vision needs: Yes (Glasses) Meds Allergies Allergy/AdvReac Type Severity Reaction Status Date / Time amoxicillin [AMOXICILLIN] Allergy Intermediate STOMACH Verified 09/05/21 10:41 ISSUES pollen extracts [POLLEN] Allergy Mild RUNNY Verified 09/05/21 10:41 NOSE, SNEEZING, ITCHY EYES Active Medications: Current Medications Acetaminophen (Acetaminophen 325 Mg Tablet) 650 mg PO Q6H PRN PRN Reason: Pain, Mild (Pain Scale 1-3) Albuterol Sulfate (Albuterol Sulfate (0.083%) 2.5 Mg/3 Ml Vial.Neb) 2.5 mg INHALE Q2H PRN PRN Reason: Shortness of Breath/Wheezing Albuterol/Ipratropium (Albuterol/Iprat 2.5/0.5mg 3 Ml Ampul.Neb) 3 ml INHALE RQ4H WHILE AWAKE [facility] Amlodipine Besylate (Amlodipine Besylate 10 Mg Tablet) 10 mg PO DAILY [facility]; Protocol Enoxaparin Sodium (Enoxaparin Sodium 40 Mg/0.4 Ml Syringe) 40 mg SUBCUT Q24H [facility] Ferrous Sulfate (Ferrous Sulfate 324 Mg Tablet.) 324 mg PO DAILY [facility] Fluticasone Propionate (Fluticasone Propionate Nasal 16 Gm [place]) 2 spray NOSTRIL-B DAILY [facility] Ibuprofen (Ibuprofen 600 Mg Tablet) 600 mg PO Q8H PRN PRN Reason: Pain, Moderate Levothyroxine Sodium (Levothyroxine Sodium 112 Mcg Tablet) 112 mcg PO DAILY@0600 [facility] Loratadine (Loratadine 10 Mg Tablet) 10 mg PO BEDTIME PRN PRN Reason: Allergy Symptoms Methylprednisolone Sodium Succinate (Methylprednisolone Sod Succ 40 Mg/Ml Vial) 40 mg IVPUSH Q12H [facility] Omeprazole (Omeprazole 20 Mg Capsule.) 20 mg PO DAILY@0630 [facility] Ondansetron HCl (Ondansetron Hcl 4 Mg/2 Ml Vial) 4 mg IVPUSH Q8H PRN PRN Reason: Nausea and Vomiting Pharmacy Consult (Consult Rx Perform Med Rec) 1 each MISCELLANE ONCE PRN PRN Reason: Consult order Prochlorperazine Maleate (Prochlorperazine Maleate 5 Mg Tablet) 5 mg PO BID PRN PRN Reason: Nausea And Vomiting Sertraline HCl (Sertraline Hcl 50 Mg Tablet) 50 mg PO DAILY [facility] Sodium Chloride (0.9 % Sodium Chloride Flush 3 Ml Syringe) 3 ml IVFLUSH QSHIFT [facility] Vitamin D (Cholecalciferol (Vitamin D3) 25 Mcg Tablet) 50 mcg PO DAILY [facility] Home Medications Medication Instructions Recorded Confirmed Last Taken Type divalproex 250 mg tablet,delayed 250 mg PO BID 08/24/21 09/17/21 09/16/21 History release cetirizine 10 mg capsule 10 mg PO BEDTIME PRN Allergy 09/05/21 09/17/21 09/16/21 History Symptoms ferrous gluconate 240 mg (27 mg 240 mg PO DAILY 09/05/21 09/17/21 09/16/21 History iron) tablet (Ferate) ibuprofen 600 mg tablet 600 mg PO Q8H PRN Pain, Moderate 09/17/21 09/17/21 09/16/21 History prochlorperazine maleate 5 mg 5 mg PO BID PRN Nausea And Vomiting 09/17/21 09/17/21 09/16/21 History tablet Physical Exam Vital Signs and Narrative: Vital Signs: Last Vital Signs Temp 99.2 F 09/17/21 09:14 Pulse 85 09/17/21 12:14 Resp 18 09/17/21 12:14 BP 128/55 L 09/17/21 12:14 Pulse Ox 94 09/17/21 12:14 O2 Del Method 09/17/21 12:14 O2 Flow Rate 2 09/17/21 12:14 Oxygen Flow Rate 4 09/17/21 09:14 BMI result Body Mass Index 23.3 Gen: mild respiratory distress, slightly tachypneic at 22 breaths/min HEENT: sclera anicteric, moist mucus membranes Neck: supple Lungs: diffuse expiratory wheezing Heart: regular rate and rhythm, no murmurs Abd: soft, non-tender, non-distended Ext: no edema Skin: warm/well-perfused Neuro: alert and oriented x3, no focal findings Psych: appropriate affect Results Labs CBC and Chem 7: 09/17/21 10:14 09/17/21 10:14 Labs: Laboratory Results - last 24 hr 09/17/21 09/17/21 09/17/21 10:10 10:14 10:14 MCV 77.0 L MCH 24.0 L MCHC 31.2 RDW 21.1 H Plt Count 278 MPV Not Reportable Immature Gran % (Auto) 0.5 H Neut % (Auto) 72.0 Lymph % (Auto) 16.1 L [place] % (Auto) 10.7 Eos % (Auto) 0.3 Baso % (Auto) 0.4 Lymph # (Auto) 1.7 [place] # (Auto) 1.1 Eos # (Auto) 0.0 Baso # (Auto) 0.0 Abs Immat Gran (auto) 0.05 H Absolute Neuts (auto) 7.4 Absolute Nucleated RBC 0.000 Nucleated RBC % (auto) 0.0 Anion Gap 14 Estim Creat Clear Calc 46.2 Estimated GFR > 60 Random Glucose 113 Calcium 9.1 Total Bilirubin 0.9 Direct Bilirubin 0.4 AST 156 H ALT 123 H Alkaline Phosphatase 162 H D Troponin I High Sens B-Natriuretic Peptide Total Protein 7.3 Albumin 3.5 Lipase 30 Procalcitonin Influenza Type A (PCR) NEGATIVE Influenza Type B (PCR) NEGATIVE RSV RNA Qual (PCR) NEGATIVE SARS-CoV-2 RNA (RT-PCR) NEGATIVE 09/17/21 09/17/21 09/17/21 10:14 10:14 10:14 MCV MCH MCHC RDW Plt Count MPV Immature Gran % (Auto) Neut % (Auto) Lymph % (Auto) [place] % (Auto) Eos % (Auto) Baso % (Auto) Lymph # (Auto) [place] # (Auto) Eos # (Auto) Baso # (Auto) Abs Immat Gran (auto) Absolute Neuts (auto) Absolute Nucleated RBC Nucleated RBC % (auto) Anion Gap Estim Creat Clear Calc Estimated GFR Random Glucose Calcium Total Bilirubin Direct Bilirubin AST ALT Alkaline Phosphatase Troponin I High Sens 6.1 D B-Natriuretic Peptide 111 H Total Protein Albumin Lipase Procalcitonin 0.09 Influenza Type A (PCR) Influenza Type B (PCR) RSV RNA Qual (PCR) SARS-CoV-2 RNA (RT-PCR) Imaging Radiologist's Impressions: Impressions Chest X-Ray 09/17/21 10:05 IMPRESSION: Well-inflated lungs. Question bronchial wall thickening at the lung bases. No definite pneumonia. Abdomen Ultrasound 09/17/21 12:13 IMPRESSION: Limited exam. Intrahepatic biliary duct dilatation. This is similar to previous exams. The common bile duct and pancreas are not well visualized. Small right renal cyst. Assessment and Plan (1) COPD exacerbation: Status: Acute (2) LFT elevation: Status: Acute Plan 76yo F with COPD, on 2L of home O2 prn; HTN; and hypothyroidism presenting with worsening dyspnea, productive cough, nasal congestion, and wheezing; found to be hypoxic by EMS; admitting for COPD exacerbation. Also noted to have elevated transminases. # COPD exacerbation - admit to M/S, give IV steroids + standing/prn bronchodilators, doxycycline PO # acute/chronic hypoxic resp failure - wean O2 as tolerated; no evidence of CO2 retention # elevated transaminases - suspect due to valproate that was recently started; check level and hold valproate; recheck LFTs in AM and also check hep B/C serologies # seizure disorder - holding valproate due to elevated LFTs; consult Neurology re alternative antiepileptic regimen # HTN - amlodipine # hypothyroidism - LT4 # VTE ppx - LMWH # code - full Quality Stroke Does the patient have a stroke diagnosis?: No VTE Prior VTE?: No VTE Risk Level:: Medical - moderate - high VTE Device Contraindication: N/A - Device Ordered VTE Drug Contraindication: N/A - Med Ordered
[2021-09-17] MEDS: methylPREDNISolone Sod Succ 40 MG/ML VIAL IVPUSH (14:53)
[2021-09-17] MEDS: Enoxaparin Sodium 40 MG/0.4 ML SYRINGE SUBCUT (14:53)
[2021-09-17 15:26] LABS: Valproate < 2.0 mcg/mL (50.0-100.0)
[2021-09-17] MEDS: 0.9 % Sodium Chloride Flush 3 ML SYRINGE IVFLUSH ×2 (15:44→21:40)
--- NOTE | 2021-09-17 19:55 | PC.NURSE ---
report given to CHARO Weir
[2021-09-18] VITALS (9 sets, daily range): BP systolic 126–160; BP diastolic 59–85; PULSE 52–85; RESP 17–20; TEMP 36.1–36.8; O2SAT 90–97
--- NOTE | 2021-09-18 00:43 | PC.NURSE ---
Patients BP 181/79. Dr Lake notified of BP as well as patients request for cough medicine. Will continue to monitor.
[2021-09-18] MEDS: methylPREDNISolone Sod Succ 40 MG/ML VIAL IVPUSH ×2 (02:20→13:27)
[2021-09-18] MEDS: guaiFENesin DM 100/10/5 ML 5 ML SYRUP PO (03:21)
[2021-09-18] MEDS: Levothyroxine Sodium 112 MCG TABLET PO (05:29)
[2021-09-18] MEDS: Omeprazole 20 MG CAPSULE.DR PO (05:29)
[2021-09-18 05:49] LABS: Mean Corpuscular Volume 76.5 fL (80.0-98.0); Mean Platelet Volume 11.2 fL (9.4-12.3); PLT ABN DIST 1
[2021-09-18 05:51] LABS: Hematocrit 37.4 % (37.0-47.0); Hemoglobin 11.5 g/dl (12.0-16.0); Mean Corpuscular HGB Conc 30.7 g/dl (31.0-35.0); Mean Corpuscular Hemoglobin 23.5 pg (27.0-33.0); Platelet Count 289 X10*3/uL (160-400); Red Blood Count 4.89 X10*6/uL (4.20-5.50); Red Cell Distribution Width 20.6 % (11.0-16.0)
[2021-09-18 06:13] LABS: Alanine Aminotransferase 83 U/L (0-31); Albumin Level 3.4 g/dL (3.5-5.0); Alkaline Phosphatase 140 U/L (39-117); Anion Gap 14 (12-20); Aspartate Amino Transferase 54 U/L (5-31); Bilirubin Total 0.4 mg/dL (0.0-1.0); Blood Urea Nitrogen 21 mg/dL (9-16); Calcium 9.7 mg/dL (8.4-10.2); Carbon Dioxide 29 mmol/L (22-29); Chloride 100 mmol/L (96-108); Creatinine Clr Calc Pharmacy 41.3; Estimated Glomerular Filt Rate > 60; Glucose Random 158 mg/dL (60-115); Potassium 5.5 mmol/L (3.3-5.1); Sodium 137 mmol/L (135-145); Total Protein 7.2 g/dL (6.5-8.0)
[2021-09-18] MEDS: Albuterol/Iprat 2.5/0.5MG 3 ML AMPUL.NEB INHALE ×3 (07:53→19:21)
[2021-09-18] MEDS: Cholecalciferol (Vitamin D3) 25 MCG TABLET 50 MCG PO (08:29)
[2021-09-18] MEDS: Sodium Zirconium Cyclosilicate 5 GM POWD.PACK PO (08:30)
[2021-09-18] MEDS: amLODIPine Besylate 10 MG TABLET PO (08:30)
[2021-09-18] MEDS: 0.9 % Sodium Chloride Flush 3 ML SYRINGE IVFLUSH ×3 (08:30→19:50)
[2021-09-18] MEDS: Sertraline HCL 50 MG TABLET PO (08:30)
[2021-09-18] MEDS: Ferrous Sulfate 324 MG TABLET.DR PO (08:30)
[2021-09-18] MEDS: Benzonatate 100 MG CAPSULE 200 MG PO (08:30)
[2021-09-18 08:48] LABS: HBS Num1 1.48 mIU/mL (0-7.99); HBc Num1 0.12 S/CO (0.00-0.79); Hepatitis B Core Antibody Nonreactive (Nonreactive); Hepatitis B Surface Antigen Negative (Negative); ~HepC Num1 0.98 S/CO (0.00-0.79); ~Hepatitis B Surface Antibody NONREACTIVE (Nonreactive)
[2021-09-18 09:48] LABS: ~HepC Num2 1.04; ~HepC Num3 1.05; ~Hepatitis C Antibody REACTIVE (Nonreactive)
[2021-09-18] MEDS: Enoxaparin Sodium 40 MG/0.4 ML SYRINGE SUBCUT (13:27)
--- NOTE | 2021-09-18 13:38 | HO.PM.IMPN ---
Subjective Subjective Date of Service: 09/18/21 Interval History: Breathing improved No seizures Review of Systems Review of Systems: Yes all other systems are reviewed and are negative Physical Exam Vital Signs: Vital Signs: Last Vital Signs Temp 97.7 F 09/18/21 12:00 Pulse 73 09/18/21 12:00 Resp 19 09/18/21 12:00 BP 128/60 09/18/21 12:00 Pulse Ox 93 09/18/21 12:00 O2 Del Method 09/18/21 12:00 O2 Flow Rate 3 09/18/21 12:00 Oxygen Flow Rate 4 09/17/21 09:14 BMI result Body Mass Index 22.1 Gen: NAD HEENT: sclera anicteric, moist mucus membranes Neck: supple Lungs: scattered expiratory wheezing Heart: regular rate and rhythm, no murmurs Abd: soft, non-tender, non-distended Ext: no edema Skin: warm/well-perfused Neuro: alert and oriented x3, no focal findings Psych: appropriate affect Objective Data Active Medications Acetaminophen (Acetaminophen 325 Mg Tablet) 650 mg PO Q6H PRN PRN Reason: Pain, Mild (Pain Scale 1-3) Albuterol Sulfate (Albuterol Sulfate (0.083%) 2.5 Mg/3 Ml Vial.Neb) 2.5 mg INHALE Q2H PRN PRN Reason: Shortness of Breath/Wheezing Albuterol/Ipratropium (Albuterol/Iprat 2.5/0.5mg 3 Ml Ampul.Neb) 3 ml INHALE RQ4H WHILE AWAKE [facility] Last Admin: 09/18/21 11:11 Dose: 3 ml Documented By: CHINO Amlodipine Besylate (Amlodipine Besylate 10 Mg Tablet) 10 mg PO DAILY [facility]; Protocol Last Admin: 09/18/21 08:30 Dose: 10 mg Documented By: ELVIA Benzonatate (Benzonatate 100 Mg Capsule) 200 mg PO TID PRN PRN Reason: couh Last Admin: 09/18/21 08:30 Dose: 200 mg Documented By: ELVIA Doxycycline Hyclate (Doxycycline Hyclate 100 Mg Tablet) 100 mg PO Q12H [facility] Last Admin: 09/18/21 13:27 Dose: 100 mg Documented By: ELVIA Enoxaparin Sodium (Enoxaparin Sodium 40 Mg/0.4 Ml Syringe) 40 mg SUBCUT Q24H [facility] Last Admin: 09/18/21 13:27 Dose: 40 mg Documented By: ELVIA Ferrous Sulfate (Ferrous Sulfate 324 Mg Tablet.) 324 mg PO DAILY [facility] Last Admin: 09/18/21 08:30 Dose: 324 mg Documented By: ELVIA Fluticasone Propionate (Fluticasone Propionate Nasal 16 Gm [place]) 2 spray NOSTRIL-B DAILY [facility] Last Admin: 09/18/21 10:20 Dose: Not Given Documented By: ELVIA Non-Admin Reason: Patient Refused Guaifenesin/Dextromethorphan (Guaifenesin Dm 100/10/5 Ml 5 Ml Syrup) 5 ml PO Q4H PRN PRN Reason: [facility] [place] Last Admin: 09/18/21 03:21 Dose: 5 ml Documented By: ESTHER Ibuprofen (Ibuprofen 600 Mg Tablet) 600 mg PO Q8H PRN PRN Reason: Pain, Moderate Levothyroxine Sodium (Levothyroxine Sodium 112 Mcg Tablet) 112 mcg PO DAILY@0600 [facility] Last Admin: 09/18/21 05:29 Dose: 112 mcg Documented By: ESTHER Loratadine (Loratadine 10 Mg Tablet) 10 mg PO BEDTIME PRN PRN Reason: Allergy Symptoms Methylprednisolone Sodium Succinate (Methylprednisolone Sod Succ 40 Mg/Ml Vial) 40 mg IVPUSH Q12H [facility] Last Admin: 09/18/21 13:27 Dose: 40 mg Documented By: ELVIA Omeprazole (Omeprazole 20 Mg Capsule.) 20 mg PO DAILY@0630 [facility] Last Admin: 09/18/21 05:29 Dose: 20 mg Documented By: ESTHER Ondansetron HCl (Ondansetron Hcl 4 Mg/2 Ml Vial) 4 mg IVPUSH Q8H PRN PRN Reason: Nausea and Vomiting Pharmacy Consult (Consult Rx Perform Med Rec) 1 each MISCELLANE ONCE PRN PRN Reason: Consult order Prochlorperazine Maleate (Prochlorperazine Maleate 5 Mg Tablet) 5 mg PO BID PRN PRN Reason: Nausea And Vomiting Sertraline HCl (Sertraline Hcl 50 Mg Tablet) 50 mg PO DAILY [facility] Last Admin: 09/18/21 08:30 Dose: 50 mg Documented By: ELVIA Sodium Chloride (0.9 % Sodium Chloride Flush 3 Ml Syringe) 3 ml IVFLUSH QSHIFT [facility] Last Admin: 09/18/21 08:30 Dose: 3 ml Documented By: ELVIA Vitamin D (Cholecalciferol (Vitamin D3) 25 Mcg Tablet) 50 mcg PO DAILY [facility] Last Admin: 09/18/21 08:29 Dose: 50 mcg Documented By: ELVIA Labs CBC & Chem 7: 09/18/21 05:29 09/18/21 05:29 Labs: Laboratory Results - last 24 hr 09/17/21 09/18/21 09/18/21 14:54 05:29 05:29 MCV 76.5 L MCH 23.5 L MCHC 30.7 L RDW 20.6 H Plt Count 289 MPV 11.2 Absolute Nucleated RBC 0.000 Nucleated RBC % (auto) 0.0 Anion Gap 14 Estim Creat Clear Calc 41.3 Estimated GFR > 60 Random Glucose 158 H Calcium 9.7 D Total Bilirubin 0.4 AST 54 H ALT 83 H Alkaline Phosphatase 140 H Total Protein 7.2 Albumin 3.4 L Valproic Acid < 2.0 L Hep Bs Antigen Hep Bs Antibody Hep B Core Total Ab Hepatitis C Ab (EIA) 09/18/21 05:29 MCV MCH MCHC RDW Plt Count MPV Absolute Nucleated RBC Nucleated RBC % (auto) Anion Gap Estim Creat Clear Calc Estimated GFR Random Glucose Calcium Total Bilirubin AST ALT Alkaline Phosphatase Total Protein Albumin Valproic Acid Hep Bs Antigen Negative Hep Bs Antibody NONREACTIVE Hep B Core Total Ab Nonreactive Hepatitis C Ab (EIA) REACTIVE Assessment and Plan (1) COPD exacerbation: Status: Acute (2) LFT elevation: Status: Acute Plan hospital d#2 76yo F with COPD, on 2L of home O2 prn; HTN; and hypothyroidism presenting with worsening dyspnea, productive cough, nasal congestion, and wheezing; found to be hypoxic by EMS; admitting for COPD exacerbation.? Also noted to have elevated transaminases. # COPD exacerbation - continue IV steroids + standing/prn bronchodilators, doxycycline PO d#2/5 # acute/chronic hypoxic resp failure - wean O2 as tolerated; no evidence of CO2 retention # elevated transaminases - suspect due to valproate that was recently started; has been discontinued; LFTs improving; noted to have HCV Ab+ # HCV antibody positive - check viral load # hyperK - mild, give 1 dose SZC and recheck in AM # seizure disorder - holding valproate due to elevated LFTs; Neuro consult re alternative antiepileptic regimen pending # HTN - amlodipine # hypothyroidism - LT4 # VTE ppx - LMWH Quality Stroke Does the patient have a stroke diagnosis?: No VTE Prior VTE?: No VTE Risk Level:: Medical - moderate - high VTE Device Contraindication: N/A - Device Ordered VTE Drug Contraindication: N/A - Med Ordered
--- NOTE | 2021-09-18 16:09 | MHC.CM.PN ---
IMM 09/18/21, EMR REVIEWED, PT ADMITTED W/WEAKNESS, SOB X 5DAYS, CM MET W/PT AT BEDSIDE AND FRIEND RENEA AT BEDSIDE, PT REPORTS RENEA KNOWS MORE AOUT HER THAN SHE DOES, PT REPORTS PT'S SON ANDERS HIS AND THEIR 2 KIDS LIVE W/PT, PT HAS A CANE AND RECENTLY STARTED USING IT AND THAT FAMILY IS GETTING HER A WALKER, PT HAS NO HOME SERVICES HOWEVER IS OPEN TO BOTH VNA AND STR DEPENDING ON PT REC'S, PT VERIFIES PCP IS [facility] PO, MODERNA X3 AND HCP ON FILE FROM O[facility] RECORDS HOWEVER PT'S AND PT WOULD LIKE TO COMPLETE A NEW HCP PRIOR TO D/C. DISPO PENDING PT EVAL, FAMILY VS BLS TRANSPORT
--- NOTE | 2021-09-18 17:31 | P.CNNE_ITS ---
History of Present Illness Data of Consult Service Date: 09/18/21 Primary Care Provider: Shane Nelson MD [facility] Reason for consult: Seizure disorder, elevated liver enzymes This is 76-year-old woman who has recently been diagnosed with a seizure disorder and had an abnormal 24 hour ambulatory EEG consistent with a generalized seizure disorder, possibly originating in the left hemisphereOn 08/11/21. She was started on Depakote 250 mg twice a day. Her liver enzymes were elevated and are coming down. Apparently the Depakote has been stopped because her Depakote level is undetectable. She is complaining of feeling wobbly on her feet with weakness in her legs when she walks about from. She has had no seizures. she had further syncopal episodes between.October and January 2021 Review of Systems Review of Systems: All other systems are reviewed and are negative Constitutional: Reports as per HPI and Reports no additional constitutional complaints Eyes: Reports as per HPI and Reports no additional eye complaints Reports system reviewed and no additional complaints, except as documented Cardiovascular: Reports as per HPI and Reports no additional cardiovascular complaints Respiratory: Reports as per HPI and Reports no additional respiratory complaints Gastrointestinal: Reports as per HPI and Reports no additional gastrointestinal complaints Genitourinary: Reports no additional female genitourinary complaints Musculoskeletal: Reports no additional musculoskeletal complaints Skin/Breast: Reports system reviewed and no additional complaints, except as docu Psychiatric: Reports no additional psychiatric complaints Endocrine: Reports no additional endocrine complaints Hematologic/Lymphatic: Reports no additional hematologic/lymphatic complaints Allergic/Immunologic: Reports no additional allergic/immunologic complaints Reports system reviewed and no additional complaints, except as documented and Reports Abnormal speech present Yes all other systems are reviewed and are negative PMFSH Past Medical History Medical History Allergic rhinitis Ford's esophagus Bile salt-induced diarrhea COPD (chronic obstructive pulmonary disease) Cutaneous lupus erythematosus GERD (gastroesophageal reflux disease) Hypertension Hypothyroid Hypoxemia Osteoarthritis Vitamin D deficiency Family History Family History Father Lymphoma Lung cancer Mother Hypertension Diabetes Sister Brain cancer Surgical History Surgical History History of cataract surgery History of cholecystectomy History of ear surgery History of eye surgery History of rectal surgery Social History Social History Household Members: Family Household Members Other:: son, his and their 2 kids Housing: House Do you presently have visiting nurse or other home services: No Alcohol intake: former Patient Tobacco Use Status: Former Tobacco user e-Cigarette/Vaping Use: Never Used Second Hand Smoke Exposure: No service: No Current occupational status: retired Cognitive needs: No Hearing needs: Yes (hearing aide) Vision needs: Yes (Glasses) Meds Allergies Allergy/AdvReac Type Severity Reaction Status Date / Time amoxicillin [AMOXICILLIN] Allergy Intermediate STOMACH Verified 09/05/21 10:41 ISSUES pollen extracts [POLLEN] Allergy Mild RUNNY Verified 09/05/21 10:41 NOSE, SNEEZING, ITCHY EYES Active Medications: Current Medications Acetaminophen (Acetaminophen 325 Mg Tablet) 650 mg PO Q6H PRN PRN Reason: Pain, Mild (Pain Scale 1-3) Albuterol Sulfate (Albuterol Sulfate (0.083%) 2.5 Mg/3 Ml Vial.Neb) 2.5 mg INHALE Q2H PRN PRN Reason: Shortness of Breath/Wheezing Albuterol/Ipratropium (Albuterol/Iprat 2.5/0.5mg 3 Ml Ampul.Neb) 3 ml INHALE RQ4H WHILE AWAKE [facility] Last Admin: 09/18/21 15:59 Dose: Not Given Amlodipine Besylate (Amlodipine Besylate 10 Mg Tablet) 10 mg PO DAILY [facility]; Protocol Last Admin: 09/18/21 08:30 Dose: 10 mg Benzonatate (Benzonatate 100 Mg Capsule) 200 mg PO TID PRN PRN Reason: couh Last Admin: 09/18/21 08:30 Dose: 200 mg Doxycycline Hyclate (Doxycycline Hyclate 100 Mg Tablet) 100 mg PO Q12H [facility] Last Admin: 09/18/21 13:27 Dose: 100 mg Enoxaparin Sodium (Enoxaparin Sodium 40 Mg/0.4 Ml Syringe) 40 mg SUBCUT Q24H [facility] Last Admin: 09/18/21 13:27 Dose: 40 mg Ferrous Sulfate (Ferrous Sulfate 324 Mg Tablet.Dr) 324 mg PO DAILY [facility] Last Admin: 09/18/21 08:30 Dose: 324 mg Fluticasone Propionate (Fluticasone Propionate Nasal 16 Gm [place]) 2 spray NOSTRIL-B DAILY [facility] Last Admin: 09/18/21 10:20 Dose: Not Given Guaifenesin/Dextromethorphan (Guaifenesin Dm 100/10/5 Ml 5 Ml Syrup) 5 ml PO Q4H PRN PRN Reason: [place] Last Admin: 09/18/21 03:21 Dose: 5 ml Ibuprofen (Ibuprofen 600 Mg Tablet) 600 mg PO Q8H PRN PRN Reason: Pain, Moderate Levothyroxine Sodium (Levothyroxine Sodium 112 Mcg Tablet) 112 mcg PO DAILY@0600 [facility] Last Admin: 09/18/21 05:29 Dose: 112 mcg Loratadine (Loratadine 10 Mg Tablet) 10 mg PO BEDTIME PRN PRN Reason: Allergy Symptoms Methylprednisolone Sodium Succinate (Methylprednisolone Sod Succ 40 Mg/Ml Vial) 40 mg IVPUSH Q12H [facility] Last Admin: 09/18/21 13:27 Dose: 40 mg Omeprazole (Omeprazole 20 Mg Capsule.Dr) 20 mg PO DAILY@0630 [facility] Last Admin: 09/18/21 05:29 Dose: 20 mg Ondansetron HCl (Ondansetron Hcl 4 Mg/2 Ml Vial) 4 mg IVPUSH Q8H PRN PRN Reason: Nausea and Vomiting Pharmacy Consult (Consult Rx Perform Med Rec) 1 each MISCELLANE ONCE PRN PRN Reason: Consult order Prochlorperazine Maleate (Prochlorperazine Maleate 5 Mg Tablet) 5 mg PO BID PRN PRN Reason: Nausea And Vomiting Sertraline HCl (Sertraline Hcl 50 Mg Tablet) 50 mg PO DAILY [facility] Last Admin: 09/18/21 08:30 Dose: 50 mg Sodium Chloride (0.9 % Sodium Chloride Flush 3 Ml Syringe) 3 ml IVFLUSH QSHIFT [facility] Last Admin: 09/18/21 15:24 Dose: 3 ml Vitamin D (Cholecalciferol (Vitamin D3) 25 Mcg Tablet) 50 mcg PO DAILY [facility] Last Admin: 09/18/21 08:29 Dose: 50 mcg Home Medications Medication Instructions Recorded Confirmed Last Taken Type divalproex 250 mg tablet,delayed 250 mg PO BID 08/24/21 09/17/21 09/16/21 History release cetirizine 10 mg capsule 10 mg PO BEDTIME PRN Allergy 09/05/21 09/17/21 09/16/21 History Symptoms ferrous gluconate 240 mg (27 mg 240 mg PO DAILY 09/05/21 09/17/21 09/16/21 History iron) tablet (Ferate) ibuprofen 600 mg tablet 600 mg PO Q8H PRN Pain, Moderate 09/17/21 09/17/21 09/16/21 History prochlorperazine maleate 5 mg 5 mg PO BID PRN Nausea And Vomiting 09/17/21 09/17/21 09/16/21 History tablet Physical Exam Vital Signs: Vital Signs: Last Vital Signs Temp 97.1 F 09/18/21 16:00 Pulse 84 09/18/21 16:00 Resp 17 09/18/21 16:00 BP 139/66 09/18/21 16:00 Pulse Ox 92 09/18/21 16:00 O2 Del Method 09/18/21 16:00 O2 Flow Rate 2 09/18/21 16:00 Oxygen Flow Rate 4 09/17/21 09:14 BMI result Body Mass Index 22.1 Neuro: Other: She is alert oriented x3 with normal intellectual functions. Speech and language functions are normal. Muscle tone and strength are normal in all 4 extremities. Reflexes symmetrical plantar response are flexor Results Labs CBC & Chem 7: 09/18/21 05:29 09/18/21 05:29 Labs: Short CBC 09/18/21 Range/Units 05:29 WBC 11.0 H (4.8-10.8) X10*3/uL Hgb 11.5 L (12.0-16.0) g/dl Hct 37.4 (37.0-47.0) % Plt Count 289 (160-400) X10*3/uL BMP 09/18/21 05:29 Sodium 137 Potassium 5.5 H D Chloride 100 Carbon Dioxide 29 BUN 21 H D Creatinine 0.86 Calcium 9.7 D Liver Function 09/18/21 Range/Units 05:29 Total Bilirubin 0.4 (0.0-1.0) mg/dL AST 54 H (5-31) U/L ALT 83 H (0-31) U/L Alkaline Phosphatase 140 H (39-117) U/L Albumin 3.4 L (3.5-5.0) g/dL Assessment and Plan (1) Seizure disorder: Status: Acute She is currently off her Depakoote which was started one month ago because of elevated liver enzymes which are coming down. Depakote level is undetectable at this time. For seizure prophylaxis I would recommend starting her on Keppra 250 mg at bedtime for a couple of days and then increasing to 250 mg twice a day (2) COPD exacerbation: Status: Acute (3) LFT elevation: Status: Acute Plan hospital d#2 76yo F with COPD, on 2L of home O2 prn; HTN; and hypothyroidism presenting with worsening dyspnea, productive cough, nasal congestion, and wheezing; found to be hypoxic by EMS; admitting for COPD exacerbation.? Also noted to have elevated transaminases. # COPD exacerbation - continue IV steroids + standing/prn bronchodilators, doxycycline PO d#05/12 # acute/chronic hypoxic resp failure - wean O2 as tolerated; no evidence of CO2 retention # elevated transaminases - suspect due to valproate that was recently started; has been discontinued; LFTs improving; noted to have HCV Ab+ # HCV antibody positive - check viral load # hyperK - mild, give 1 dose SZC and recheck in AM # seizure disorder - holding valproate due to elevated LFTs; Neuro consult re alternative antiepileptic regimen pending # HTN - amlodipine # hypothyroidism - LT4 # VTE ppx - LMWH Procedures Date of Service Date of Service: 09/18/21
[2021-09-19] MEDS: methylPREDNISolone Sod Succ 40 MG/ML VIAL IVPUSH (02:06)
[2021-09-19 04:10] VITALS: BP 148/60; PULSE 65; RESP 18; TEMP 36.1; O2SAT 95
[2021-09-19] MEDS: Omeprazole 20 MG CAPSULE.DR PO (05:15)
[2021-09-19] MEDS: Levothyroxine Sodium 112 MCG TABLET PO (05:15)
[2021-09-19 06:36] LABS: Alanine Aminotransferase 53 U/L (0-31); Albumin Level 3.3 g/dL (3.5-5.0); Alkaline Phosphatase 121 U/L (39-117); Anion Gap 13 (12-20); Aspartate Amino Transferase 24 U/L (5-31); Bilirubin Total < 0.2 mg/dL (0.0-1.0); Blood Urea Nitrogen 30 mg/dL (9-16); Calcium 9.4 mg/dL (8.4-10.2); Carbon Dioxide 28 mmol/L (22-29); Chloride 102 mmol/L (96-108); Creatinine Clr Calc Pharmacy 43.9; Estimated Glomerular Filt Rate > 60; Glucose Random 120 mg/dL (60-115); Potassium 4.8 mmol/L (3.3-5.1); Sodium 138 mmol/L (135-145); Total Protein 6.9 g/dL (6.5-8.0)
[2021-09-19 06:47] LABS: Hematocrit 37.2 % (37.0-47.0); Hemoglobin 11.4 g/dl (12.0-16.0); Mean Corpuscular HGB Conc 30.6 g/dl (31.0-35.0); Mean Corpuscular Hemoglobin 23.5 pg (27.0-33.0); Mean Corpuscular Volume 76.7 fL (80.0-98.0); Mean Platelet Volume 10.9 fL (9.4-12.3); Platelet Count 325 X10*3/uL (160-400); Red Blood Count 4.85 X10*6/uL (4.20-5.50); White Blood Count 15.8 X10*3/uL (4.8-10.8)
[2021-09-19] MEDS: Albuterol/Iprat 2.5/0.5MG 3 ML AMPUL.NEB INHALE (07:52)
[2021-09-19 07:53] VITALS: PULSE 68; RESP 18; O2SAT 95
[2021-09-19 08:00] VITALS: BP 146/84; TEMP 37.1; O2SAT 94
[2021-09-19] MEDS: guaiFENesin DM 100/10/5 ML 5 ML SYRUP PO (08:39)
[2021-09-19] MEDS: Sertraline HCL 50 MG TABLET PO (08:39)
[2021-09-19] MEDS: Cholecalciferol (Vitamin D3) 25 MCG TABLET 50 MCG PO (08:39)
[2021-09-19] MEDS: amLODIPine Besylate 10 MG TABLET PO (08:40)
[2021-09-19] MEDS: Ferrous Sulfate 324 MG TABLET.DR PO (08:40)
[2021-09-19] MEDS: 0.9 % Sodium Chloride Flush 3 ML SYRINGE IVFLUSH (08:42)
[2021-09-19] MEDS: levETIRAcetam 250 MG TABLET PO (10:51)
--- NOTE | 2021-09-19 11:43 | W.MHC.F2F ---
Service Date Service Date: 09/19/21 Encounter Date of encounter: 09/19/21 Reasons for Services Signs and symptoms assessed: respiratory Reason for jail: medication management, medication treatment and teach disease management Reason for physical therapy: home safety and mobility, therapeutic exercises, gait/transfer training, assess need for DME, ADL training and energy conservation MD Overseeing Care: Shane Nelson Homebound: Leaving the home is medically contraindicated at this time without the asist of a device and/or another person due th the listed conditions above and below. Reason homebound: unsteady gait / fall risk, shortness of breath with minimal effort and weakness related to hospital stay Certification: Based on the above findings, I certify that this patient is confined to the home and needs intermittent jail care, physical therapy and/or speech therapy, or continues to need occupational therapy. The patient is under my care, and I have initiated the establishment of the plan of care. The patient will be followed by a physician who will periodically review the plan of care.
--- NOTE | 2021-09-19 11:54 | P.DS_ITS ---
DS: Providers Provider Date of Service: 09/19/21 Date of admission: 09/17/21 13:40 Date of discharge: 09/19/21 Primary care physician: Shane Nelson MD Consults: 09/17/21 13:12 Consult to Neurology Routine Consulting Provider: [facility] Reason for consultation: seizures, recently started on depakote, has elevated LFTs DS: Diagnosis Discharge Diagnosis (1) Seizure disorder: Status: Acute (2) COPD exacerbation: Status: Acute (3) LFT elevation: Status: Acute (4) Acute and chronic respiratory failure with hypoxia: Status: Acute DS: Summary Hospital Course Hospital Course: from my admission H+P, 09/17/21: 76yo F with COPD, on 2L of home O2 prn; HTN; and hypothyroidism presented to the [facility] ED today with 4 days of worsening dyspnea, productive cough, nasal congestion, and wheezing.? Per EMS, her RA SaO2 was 87% and she was placed on 4L of O2 via NC; however, her SaO2 may be inaccurate due to history of Raynaud's phenomenon.? In the ED, she was given nebulized bronchodilators as well as IV methlylprednisolone.? CXR showed bibasilar bronchial wall thickening. ? Covid-19 SENA negative.? Also noted to have elevated transaminases with AST 156 and ALT 123; previously in normal range.? Pt denies anything more than rare, minimal EtOH intake and none recently.? She was started on Depakote a few weeks ago for newly diagnosed seizure disorder. She was admitted to the medical/surgical floor and treated with IV methylp rednisolone, PO doxycycline, and nebulized bronchodilators. She was weaned to her baseline level of O2 supplementation. Elevated tranaminases were suspected due to valproate, which had recently been started for seizure disorder. Valproate was discontinued and LFTs improved. Neurology was consulted and her anti-epileptic was switched to levetiracetam. She was noted to have a positive HCV antibody and a viral load is pending at the time of discharge. She was discharged home with VNA services and will need follow-up appts with Primary Care [1 wk], Pulmonology [2 wk], and Neurology [4 wk]. She was placed on 3 more days of prednisone and doxycycline. Time Spent with Patient Time attestation: Total time spent providing and/or coordinating discharge services: Discharge coordination time: Greater than 30 minutes Quality: Safe Use of Opioids Does Pt have an Active Cancer Diagnosis on the Problem List?: No Quality: Stroke Does the patient have a stroke diagnosis?: No Physical Exam Vital Signs: Vital Signs: Last Vital Signs Temp 98.7 F 09/19/21 08:00 Pulse 68 09/19/21 07:53 Resp 18 09/19/21 07:53 BP 146/84 H 09/19/21 08:00 Pulse Ox 94 09/19/21 08:00 O2 Del Method 09/19/21 08:00 O2 Flow Rate 2 09/19/21 08:00 Oxygen Flow Rate 4 09/17/21 09:14 BMI result Body Mass Index 22.1 Gen: in no acute distress HEENT: sclera anicteric, moist mucus membranes Neck: supple Lungs: clear to auscultation bilaterally Heart: regular rate and rhythm, no murmurs Abd: soft, non-tender, non-distended Ext: no edema Skin: warm/well-perfused Neuro: alert and oriented x3, no focal findings Psych: appropriate affect DS: Data Data Completed and Pending Completed studies during hospitalization [Text1]: Laboratory Results WBC 15.8 X10*3/uL (4.8-10.8) H 09/19/21 05:56 RBC 4.85 X10*6/uL (4.20-5.50) 09/19/21 05:56 Hgb 11.4 g/dl (12.0-16.0) L 09/19/21 05:56 Hct 37.2 % (37.0-47.0) 09/19/21 05:56 MCV 76.7 fL (80.0-98.0) L 09/19/21 05:56 MCH 23.5 pg (27.0-33.0) L 09/19/21 05:56 MCHC 30.6 g/dl (31.0-35.0) L 09/19/21 05:56 RDW 21.0 % (11.0-16.0) H 09/19/21 05:56 Plt Count 325 X10*3/uL (160-400) 09/19/21 05:56 MPV 10.9 fL (9.4-12.3) 09/19/21 05:56 Immature Gran % (Auto) 0.5 % (0.0-0.4) H 09/17/21 10:14 Neut % (Auto) 72.0 % (45-73) 09/17/21 10:14 Lymph % (Auto) 16.1 % (20-40) L 09/17/21 10:14 [place] % (Auto) 10.7 % (2-11) 09/17/21 10:14 Eos % (Auto) 0.3 % (0-4) 09/17/21 10:14 Baso % (Auto) 0.4 % (0-2) 09/17/21 10:14 Lymph # (Auto) 1.7 X10*3/uL (1.2-4.9) 09/17/21 10:14 [place] # (Auto) 1.1 X10*3/uL (0.1-1.2) 09/17/21 10:14 Eos # (Auto) 0.0 X10*3/uL (0.0-0.4) 09/17/21 10:14 Baso # (Auto) 0.0 X10*3/uL (0.0-0.2) 09/17/21 10:14 Abs Immat Gran (auto) 0.05 X10*3/uL (0.00-0.03) H 09/17/21 10:14 Absolute Neuts (auto) 7.4 x10*3/uL (2.0-8.3) 09/17/21 10:14 Absolute Nucleated RBC 0.000 X10*3/uL (0.0-0.012) 09/19/21 05:56 Nucleated RBC % (auto) 0.0 /100WBC (0.0-0.2) 09/19/21 05:56 Sodium 138 mmol/L (135-145) 09/19/21 05:56 Potassium 4.8 mmol/L (3.3-5.1) 09/19/21 05:56 Chloride 102 mmol/L (96-108) 09/19/21 05:56 Carbon Dioxide 28 mmol/L (22-29) 09/19/21 05:56 Anion Gap 13 (12-20) 09/19/21 05:56 BUN 30 mg/dL (9-16) H 09/19/21 05:56 Creatinine 0.81 mg/dL (0.5-1.4) 09/19/21 05:56 Estim Creat Clear Calc 43.9 09/19/21 05:56 Estimated GFR > 60 09/19/21 05:56 Random Glucose 120 mg/dL (60-115) H 09/19/21 05:56 Calcium 9.4 mg/dL (8.4-10.2) 09/19/21 05:56 Total Bilirubin < 0.2 mg/dL (0.0-1.0) 09/19/21 05:56 Direct Bilirubin 0.4 mg/dL (0.0-0.5) 09/17/21 10:14 AST 24 U/L (5-31) D 09/19/21 05:56 ALT 53 U/L (0-31) H 09/19/21 05:56 Alkaline Phosphatase 121 U/L (39-117) H 09/19/21 05:56 Troponin I High Sens 6.1 ng/L (<3.5-17.0) D 09/17/21 10:14 B-Natriuretic Peptide 111 pg/mL (<100) H 09/17/21 10:14 Total Protein 6.9 g/dL (6.5-8.0) 09/19/21 05:56 Albumin 3.3 g/dL (3.5-5.0) L 09/19/21 05:56 Lipase 30 U/L (8-78) 09/17/21 10:14 Procalcitonin 0.09 ng/mL 09/17/21 10:14 Valproic Acid < 2.0 mcg/mL (50.0-100.0) L 09/17/21 14:54 Hep Bs Antigen Negative (Negative) 09/18/21 05:29 Hep Bs Antibody NONREACTIVE (Nonreactive) 09/18/21 05:29 Hep B Core Total Ab Nonreactive (Nonreactive) 09/18/21 05:29 Hepatitis C Ab (EIA) REACTIVE (Nonreactive) 09/18/21 05:29 Influenza Type A (PCR) NEGATIVE (Negative) 09/17/21 10:10 Influenza Type B (PCR) NEGATIVE (Negative) 09/17/21 10:10 RSV RNA Qual (PCR) NEGATIVE (Negative) 09/17/21 10:10 SARS-CoV-2 RNA (RT-PCR) NEGATIVE (Negative) 09/17/21 10:10 Impressions Chest X-Ray 09/17/21 10:05 IMPRESSION: Well-inflated lungs. Question bronchial wall thickening at the lung bases. No definite pneumonia. Abdomen Ultrasound 09/17/21 12:13 IMPRESSION: Limited exam. Intrahepatic biliary duct dilatation. This is similar to previous exams. The common bile duct and pancreas are not well visualized. Small right renal cyst. Discharge Plan Discharge Patient Disposition: Home Health Service Discharge Diagnosis: COPD exacerbation, acute/chronic hypoxic respiratory failure, elevated liver enzymes, seizure disorder, positive hepatitis C antibody Referrals: Po,Shane Miller MD [Primary Care Provider] - 1 Week Discharge Medications: New levetiracetam 250 mg Tablet 250 mg PO BID Qty: 60 0RF doxycycline hyclate 100 mg Tablet 100 mg PO Q12H Qty: 6 0RF prednisone 20 mg tablet 40 mg PO DAILY Qty: 6 0RF Continued omeprazole 20 mg capsule,delayed release(DR/EC) 20 mg PO DAILY Qty: 90 1RF Hold Instructions: Doctor's Order levothyroxine 112 mcg tablet 112 mcg PO DAILY 90 Days Qty: 90 3RF sertraline 50 mg tablet 50 mg PO DAILY Qty: 90 3RF cholecalciferol (vitamin D3) 50 mcg (2,000 unit) capsule 50 mcg PO DAILY Qty: 30 2RF amlodipine 10 mg tablet 10 mg PO DAILY Qty: 90 3RF simvastatin 20 mg tablet 20 mg PO BEDTIME 90 Days Qty: 90 2RF prochlorperazine maleate 5 mg tablet 5 mg PO BID PRN (Reason: Nausea And Vomiting) ibuprofen 600 mg tablet 600 mg PO Q8H PRN (Reason: Pain, Moderate) fluticasone propionate [Flonase Allergy Relief] 50 mcg/actuation spray,suspension 2 spray intranasal DAILY Qty: 16 11RF Rx Instructions: administer into each nostril ferrous gluconate [Ferate] 240 mg (27 mg iron) tablet 240 mg PO DAILY cetirizine 10 mg capsule 10 mg PO BEDTIME PRN (Reason: Allergy Symptoms) albuterol sulfate [Ventolin HFA] 90 mcg/actuation HFA aerosol inhaler 2 puff PO Q6H PRN (Reason: shortness of breath or wheezing) Qty: 8.5 1RF Rx Instructions: substitute allowed Discontinued divalproex 250 mg tablet,delayed release (DR/EC) 250 mg PO BID Discharge Orders: Discharge Order (Routine); Ordered 09/19/21 Ordered By: Dot Ceballos Diet: advance to usual diet Activity on Discharge: As tolerated Stand Alone Forms: Patient Portal Discharge page Care Plan Goals: lung health prevention of seizures Health Concerns: COPD exacerbation, acute/chronic hypoxic respiratory failure, elevated liver enzymes, seizure disorder, positive hepatitis C antibody Plan of Treatment: take prednisone 40 mg daily x 3 days take doxycycline 100 mg twice daily x 3 days use albuterol as needed for shortness of breath or wheezing use oxygen 2L at all times follow up with Dr Menendez [Pulmonology] in 2 weeks stop taking Depakote [divalproex] due to elevation in liver enzymes start taking Keppra [levetiracetam] 250 mg twice daily instead follow up with Dr Jeffery [Neurology] in 4 weeks pending laboratory study: hepatitis C viral load follow up with Dr Nelson [Primary Care] in 1 month Assessment: See Discharge Summary
--- NOTE | 2021-09-19 12:06 | MHC.CM.PN ---
PT MEDICALLY CLEARED FOR D/C HOME W/NEW [facility] FOR SN AND HOME PT, PT'S DTR TO TRANSPORT AT 1:30PM
[2021-09-19 12:16] LABS: Appearance Urine HAZY; Color Urine YELLOW; Glucose Urine UA NEG (NEG); Leukocyte Esterase Urine 1+ (NEG); Nitrite Urine NEG (NEG); PH 5.5 (5.0-8.0); Specific Gravity - Urine 1.025 (1.005-1.025); UACC Culture Trigger YES; Urine Blood TRACE (NEG); Urine Ketones NEG (NEG); Urine Protein 1+ MG/DL (NEG-TRACE)
[2021-09-19 12:25] LABS: Mucus Urine 1+ /LPF; Renal Epithelial Cells Urine 1+ /LPF; Squamous Epithelial Cell Urine 1+ /LPF
[2021-09-19] MEDS: Enoxaparin Sodium 40 MG/0.4 ML SYRINGE SUBCUT (13:11)
[2021-09-25 14:32] LABS: HCV Log PCR <1.18 NOT DETECTED Log IU/mL (NOT DETECTED); HepC Viral Load <15 NOT DETECTED IU/mL (NOT DETECTED)
== END 2021-09-19 13:37 | disposition home health service (06) | DRG 190 ==
LOC: HO.ED 11:33 → HO.EDOVER 13:41 → HO.S3 17:34
PROVIDERS: Admitting Provider Family Medicine; Emergency Provider Emergency Medicine; PCP Internal Medicine; Visit Provider Family Medicine
DX: J44.1 Chronic obstructive pulmonary disease with (acute) exacerbation (principal); J96.21 Acute and chronic respiratory failure with hypoxia; K21.9 Gastro-esophageal reflux disease without esophagitis; L93.2 Other local lupus erythematosus; G40.909 Epilepsy, unspecified, not intractable, without status epilepticus; E03.9 Hypothyroidism, unspecified; Z20.822 Contact with and (suspected) exposure to COVID-19; Z99.81 Dependence on supplemental oxygen; Z87.891 Personal history of nicotine dependence; Z88.0 Allergy status to penicillin; Z79.51 Long term (current) use of inhaled steroids; Z79.52 Long term (current) use of systemic steroids; Z79.890 Hormone replacement therapy; Z79.899 Other long term (current) drug therapy
CPT/HCPCS: 0241U; 36415; 71045; 76705; 80048; 80053; 80076; 80164; 81001; 83690; 83880; 84145; 84484; 85025; 85027; 86704; 86706; 86803; 87086; 87340; 87522; 93005; 94640; 96374; 99285; J1650; J2920; J2930

== ENCOUNTER → 2021-09-28 11:02 | Outpatient (BNVA) | payer MEDICARE, SELFPAY | DX: R31.9 Hematuria, unspecified (principal) | CPT/HCPCS: Q3014 ==

== ENCOUNTER → 2021-10-09 10:28 | Outpatient (BNVA) | payer MEDICARE, SELFPAY | PROVIDERS: PCP Internal Medicine; Visit Provider Internal Medicine | DX: J44.9 Chronic obstructive pulmonary disease, unspecified (principal); J30.9 Allergic rhinitis, unspecified; R09.02 Hypoxemia | CPT/HCPCS: 99212 ==

== ENCOUNTER 2021-12-03 11:03 | Outpatient (REF) | payer MEDICARE, SELFPAY ==
[2021-12-03 11:24] LABS: MANUAL DIFF FLAG NO
[2021-12-03 11:35] LABS: Ammonia 17 umol/L (13-55)
[2021-12-03 12:17] LABS: Basophils Percent Auto 0.8 % (0-2); Eosinophils Absolute Auto 0.1 X10*3/uL (0.0-0.4); Eosinophils Percent Auto 1.2 % (0-4); Hematocrit 38.3 % (37.0-47.0); Hemoglobin 11.8 g/dl (12.0-16.0); Imm Gran Abs Auto 0.02 X10*3/uL (0.00-0.03); Imm Gran Pct Auto 0.4 % (0.0-0.4); Lymphocytes Absolute Auto 0.9 X10*3/uL (1.2-4.9); Lymphocytes Percent Auto 18.4 % (20-40); Mean Corpuscular HGB Conc 30.8 g/dl (31.0-35.0); Mean Corpuscular Hemoglobin 26.6 pg (27.0-33.0); Mean Corpuscular Volume 86.3 fL (80.0-98.0); Mean Platelet Volume 10.6 fL (9.4-12.3); Monocytes Absolute Auto 0.5 X10*3/uL (0.1-1.2); Monocytes Percent Auto 9.2 % (2-11); Neutrophils Absolute Auto 3.4 x10*3/uL (2.0-8.3); Platelet Count 204 X10*3/uL (160-400); Red Blood Count 4.44 X10*6/uL (4.20-5.50); Red Cell Distribution Width 19.4 % (11.0-16.0); White Blood Count 4.9 X10*3/uL (4.8-10.8)
[2021-12-03 12:47] LABS: Alanine Aminotransferase 12 U/L (0-31); Albumin Level 4.4 g/dL (3.5-5.0); Alkaline Phosphatase 71 U/L (39-117); Anion Gap 15 (12-20); Aspartate Amino Transferase 26 U/L (5-31); Bilirubin Direct 0.2 mg/dL (0.0-0.5); Bilirubin Total 0.4 mg/dL (0.0-1.0); Blood Urea Nitrogen 24 mg/dL (9-16); Calcium 9.7 mg/dL (8.4-10.2); Carbon Dioxide 29 mmol/L (22-29); Chloride 103 mmol/L (96-108); Estimated Glomerular Filt Rate 58; Glucose Random 86 mg/dL (60-115); Potassium 4.4 mmol/L (3.3-5.1); Sodium 143 mmol/L (135-145); Total Protein 7.6 g/dL (6.5-8.0)
[2021-12-03 12:52] LABS: Valproate < 2.0 mcg/mL (50.0-100.0)
[2021-12-03 12:56] LABS: Erythrocyte Sedimentation Rate 22 MM/HR (0-20)
[2021-12-03 13:10] LABS: T4 Thyroxine 6.3 ug/dL (4.5-12.0)
== END 2021-12-03 11:04 | disposition home or self-care (01) ==
LOC: HO.LAB 11:03
PROVIDERS: PCP Internal Medicine; Visit Provider Psychiatry & Neurology Neurology
DX: R56.9 Unspecified convulsions (principal); E03.9 Hypothyroidism, unspecified; Z79.899 Other long term (current) drug therapy
CPT/HCPCS: 36415; 80048; 80076; 80164; 82140; 82550; 84436; 84443; 85025; 85652

== ENCOUNTER → 2022-01-07 10:38 | Outpatient (BNVA) | payer MEDICARE, SELFPAY | PROVIDERS: PCP Internal Medicine; Visit Provider Internal Medicine | DX: J44.9 Chronic obstructive pulmonary disease, unspecified (principal); J30.9 Allergic rhinitis, unspecified; J96.21 Acute and chronic respiratory failure with hypoxia; Z79.899 Other long term (current) drug therapy | CPT/HCPCS: 99212 ==

== ENCOUNTER 2022-01-21 15:16 | Outpatient (REF) | payer MEDICARE, SELFPAY ==
[2022-01-21 15:35] LABS: MANUAL DIFF FLAG NO
[2022-01-21 16:13] LABS: Basophils Absolute Auto 0.1 X10*3/uL (0.0-0.2); Eosinophils Absolute Auto 0.1 X10*3/uL (0.0-0.4); Eosinophils Percent Auto 1.9 % (0-4); Hematocrit 43.9 % (37.0-47.0); Hemoglobin 13.6 g/dl (12.0-16.0); Imm Gran Abs Auto 0.02 X10*3/uL (0.00-0.03); Imm Gran Pct Auto 0.4 % (0.0-0.4); Immature Retic Fraction 4.5 % (3.0-15.9); Lymphocytes Absolute Auto 1.3 X10*3/uL (1.2-4.9); Lymphocytes Percent Auto 25.3 % (20-40); Mean Corpuscular Hemoglobin 26.8 pg (27.0-33.0); Mean Corpuscular Volume 86.4 fL (80.0-98.0); Mean Platelet Volume 11.3 fL (9.4-12.3); Monocytes Absolute Auto 0.5 X10*3/uL (0.1-1.2); Monocytes Percent Auto 8.7 % (2-11); Neutrophils Absolute Auto 3.3 x10*3/uL (2.0-8.3); Neutrophils Percent Auto 62.7 % (45-73); Platelet Count 263 X10*3/uL (160-400); Red Blood Count 5.08 X10*6/uL (4.20-5.50); Red Cell Distribution Width 14.3 % (11.0-16.0); Reticulocyte Percent 0.7 % (0.5-1.8); Reticulocytes Absolute 0.033 X10*6/uL (0.026-0.095); White Blood Count 5.2 X10*3/uL (4.8-10.8)
[2022-01-21 16:27] LABS: Alanine Aminotransferase 14 U/L (0-31); Albumin Level 4.1 g/dL (3.5-5.0); Alkaline Phosphatase 89 U/L (39-117); Anion Gap 16 (12-20); Aspartate Amino Transferase 18 U/L (5-31); Bilirubin Total 0.3 mg/dL (0.0-1.0); Blood Urea Nitrogen 17 mg/dL (9-16); Calcium 9.4 mg/dL (8.4-10.2); Carbon Dioxide 25 mmol/L (22-29); Chloride 107 mmol/L (96-108); Cholesterol 144 mg/dL; Estimated Glomerular Filt Rate > 60; Glucose Random 97 mg/dL (60-115); HDL Cholesterol 48 mg/dL; Iron 38 mcg/dL (30-160); LDL Cholesterol Calculated 72 mg/dl; Percent Iron Saturation 11 % (15-50); Potassium 4.3 mmol/L (3.3-5.1); Sodium 144 mmol/L (135-145); Total Iron Binding Capacity 342 mcg/dL (228-428); Total Protein 7.2 g/dL (6.5-8.0); Triglycerides 120 mg/dL; Unsaturated Iron Binding 304 ug/dL
[2022-01-21 16:49] LABS: Ferritin 28 ng/mL (10-250); Thyroid Stimulating Hormone 0.54 uIU/mL (0.32-4.0)
[2022-01-21 17:00] LABS: Folate 13.9 ng/mL (> or = 4.0); Vitamin B12 804 pg/mL (200-900)
== END 2022-01-21 15:17 | disposition home or self-care (01) ==
LOC: HO.LAB 15:16
PROVIDERS: PCP Internal Medicine; Visit Provider Internal Medicine
DX: K22.710 Barrett's esophagus with low grade dysplasia (principal); D64.9 Anemia, unspecified; E03.9 Hypothyroidism, unspecified; I10 Essential (primary) hypertension; E78.00 Pure hypercholesterolemia, unspecified
CPT/HCPCS: 36415; 80053; 80061; 82607; 82728; 82746; 83540; 84439; 84443; 85025; 85045

== ENCOUNTER → 2022-04-22 09:19 | Outpatient (BNVA) | payer MEDICARE, SELFPAY | PROVIDERS: PCP Internal Medicine; Visit Provider Nurse Practitioner Family | DX: R31.29 Other microscopic hematuria (principal); N28.1 Cyst of kidney, acquired | CPT/HCPCS: 99212 ==

== ENCOUNTER → 2022-08-26 10:53 | Outpatient (BNVA) | payer MEDICARE, SELFPAY | PROVIDERS: PCP Internal Medicine; Visit Provider Internal Medicine | DX: J44.9 Chronic obstructive pulmonary disease, unspecified (principal); J30.9 Allergic rhinitis, unspecified | CPT/HCPCS: 99212 ==

== ENCOUNTER 2022-10-07 13:41 | Outpatient (REF) | payer MEDICARE, SELFPAY | END 2022-10-07 13:42 | disposition home or self-care (01) | LOC: HO.LAB 13:41 | PROVIDERS: PCP Internal Medicine; Visit Provider Internal Medicine | DX: E78.00 Pure hypercholesterolemia, unspecified (principal); I10 Essential (primary) hypertension; E03.9 Hypothyroidism, unspecified; M81.0 Age-related osteoporosis without current pathological fracture | CPT/HCPCS: 36415; 80053; 80061; 82306; 82607; 82746; 84439; 84443; 85025 ==

== ENCOUNTER 2022-10-21 08:58 | Outpatient (REF) | payer MEDICARE, SELFPAY ==
--- NOTE | ~2022-10-21 | US_ITS ---
EXAMINATION: US RETROPERITONEAL LIMITED (RENAL ONLY) CLINICAL INFORMATION: Cyst of kidney, acquired. COMPARISON: Ultrasound abdomen limited 09/17/2021. CT abdomen and pelvis with contrast 11/06/2020. Ultrasound abdomen complete 05/21/2019. X-ray abdomen and chest 06/20/2012. TECHNIQUE: Real-time imaging of the kidneys. FINDINGS: RIGHT KIDNEY: 9.3 x 5.1 x 5.2 cm (SAG x AP x TRV). The kidney is normal in size, contour, and echogenicity. Renal cortical thickness is normal. No renal calculi or hydronephrosis. Small renal cysts measuring 7 mm in the upper pole, 9 x 1 x 6 mm in the lower pole and 1 x 1.2 cm in the midpole. No imaging follow up recommended. LEFT KIDNEY: 9.3 x 4.7 x 4.9 cm (SAG x AP x TRV). The kidney is normal in size, contour, and echogenicity. Renal cortical thickness is normal. No renal calculi or hydronephrosis. Small cysts measuring 7 x 8 mm in the upper pole and 10 x 8 x 9 mm in the lower pole. No imaging follow up recommended. US/US retroperitoneal limited IMPRESSION: Unremarkable exam.
== END 2022-10-21 08:59 | disposition home or self-care (01) ==
LOC: HO.US 08:58
PROVIDERS: PCP Internal Medicine; Visit Provider Nurse Practitioner Family
DX: N28.1 Cyst of kidney, acquired (principal); R31.29 Other microscopic hematuria
CPT/HCPCS: 76775

== ENCOUNTER 2022-11-11 11:20 | Outpatient (AMB) | payer MEDICARE, SELFPAY ==
--- NOTE | 2022-11-11 11:21 | A.OFFVIS_ITS ---
Intake Intake Visit Reasons: 6m follow up/US(set) Intake Note: Patient presents for follow up Ultrasound/Hematuria/Renal Cyst (imaging 10/21) Urology Medication: none Blood Thinner: none Weight Loss Centre Manager Required: No Accompanied by: Son Allergies amoxicillin [AMOXICILLIN] Allergy (Intermediate, Verified 11/11/22 22:37) STOMACH ISSUES pollen extracts [POLLEN] Allergy (Mild, Verified 11/11/22 22:37) RUNNY NOSE, SNEEZING, ITCHY EYES Medication List - Last Reconciled 11/11/22 by OSEAS Gregory-LUIS Advair Diskus 250-50 mcg/dose (fluticasone propion-salmeterol) 1 inh inhalation BID 30 days NS albuterol sulfate 90 mcg/actuation (Ventolin HFA) 2 puffs PO Q6H PRN albuterol sulfate 90 mcg/actuation 2 puffs inhalation Q4-6H PRN 30 days amlodipine 10 mg PO DAILY blood pressure monitor (Blood Pressure Kit) As directed budesonide-formoterol 80-4.5 mcg/actuation (Symbicort) 2 puffs inhalation Q12H 30 days cetirizine 10 mg PO BEDTIME PRN cholecalciferol (vitamin D3) 50 mcg PO DAILY diphenoxylate-atropine 2.5-0.025 mg 1 tab PO BID ferrous gluconate (Ferate) 240 mg PO DAILY fluticasone propionate 50 mcg/actuation (Flonase Allergy Relief) 2 sprays intranasal DAILY PRN levetiracetam 500 mg PO BID levothyroxine 112 mcg PO DAILY 90 days memantine (Namenda) 5 mg PO BID 90 days omeprazole 20 mg PO DAILY sertraline 50 mg PO DAILY simvastatin 20 mg PO BEDTIME 90 days HPI HPI Comments History of Present Illness Details Pretty is a pleasant 77-year-old female patient of Dr. Nelson who was accompanied by her son at today's visit. She has a past medical history of chronic respiratory failure with hypoxia, allergic rhinitis, anemia, Ford's esophagus, diarrhea, COPD, GERD, hypertension, hypothyroidism, osteoarthritis, seizure disorder, and vitamin-D deficiency. She presents to the office today for follow-up of her renal cysts and microscopic hematuria. Recent renal imaging results reviewed with the patient and her son today. Bilateral kidneys with no calculi or hydronephrosis noted. Small right renal cysts measuring 7 mm in the upper pole, 9 x 1 x 6 mm in the lower pole, and 1 x 1.2 cm in the mid pole. The left kidney with small cyst measuring 7 x 8 in the upper pole and 10 x 8 x 9 mm in the lower pole. Per Radiology report no imaging follow-up is recommended. Otherwise unremarkable renal ultrasound. Patient is accompanied at today's visit with her son as she suffers from epilepsy and reports she is unable to drive. In office urinalysis results reviewed with the patient today. No microscopic hematuria noted. Patient has had previous urine sent for cytology which was negative for high-grade urothelial carcinoma. She otherwise denies any urinary issues or concerns at this time. When asked she denies urinary urgency, urinary frequency, incontinence, nocturia, hematuria, dysuria, foul smelling urine, changes to urinary stream, flank pain, fever, and or chills. She is happy with her current voiding parameters. She discusses following up with PCP regarding ongoing bilateral lower extremity weakness she otherwise offers no issues or concerns at this time. [facility] Medical History Acute and chronic respiratory failure with hypoxia Allergic rhinitis Anemia Anemia Ford's esophagus Bilateral knee pain Bile salt-induced diarrhea Chronic diarrhea COPD (chronic obstructive pulmonary disease) COPD (chronic obstructive pulmonary disease) COPD exacerbation Cutaneous lupus erythematosus Diarrhea Frequent falls Generalized abdominal pain GERD (gastroesophageal reflux disease) Hematuria Hypertension Hypothyroid Hypoxemia Initial Medicare annual wellness visit Left-sided back pain LFT elevation Microscopic hematuria Nausea Osteoarthritis Osteoarthritis, knee Rash Renal cyst Screening for osteoporosis Seizure disorder Shortness of breath Syncope Vitamin D deficiency Surgical History History of cataract surgery History of cholecystectomy History of ear surgery History of eye surgery History of rectal surgery Family History Father Lymphoma Lung cancer Mother Hypertension Diabetes Sister Brain cancer Social History Household Members: Family Household Members Other:: son, his and their 2 kids Housing: House Do you presently have visiting nurse or other home services: No Alcohol intake: former Patient Tobacco Use Status: Former Tobacco user e-Cigarette/Vaping Use: Never Used Second Hand Smoke Exposure: No service: No Current occupational status: retired Cognitive needs: No Hearing needs: Yes (hearing aide) Vision needs: Yes (Glasses) Review of Systems Const Reports as per [facility] Eyes Reports no additional complaints ENT Reports no additional complaints Card Reports as per HPI Resp Reports as per HPI GI Reports as per HPI Reports as per HPI Musc Reports as per HPI Neuro Details: Patient with history of epilepsy as well as decreased reflexes. Reports as per HPI Physical Exam Const General: cooperative, comfortable, no acute distress, well developed, alert and awake Orientation/consciousness: patient oriented x3 Limitations: ambulation with cane HEENT Head: Yes normal to inspection, Yes normocephalic and Yes atraumatic Ears: hearing grossly normal bilaterally Eyes General: appearance normal, both eyes and all related structures Neck Neck: Yes normal visual inspection and Yes trachea midline Chest Chest palpation & inspection: normal inspection of the chest Resp Effort & Inspection: normal respiratory effort and able to speak in complete sentences Cardio Rate: regular rate GI Inspection: Yes normal to inspection General: Yes no CVA tenderness Back/Spine/Pelvis Back: no CVA tenderness Skin General skin exam: no rashes or lesions noted Neuro General: patient oriented x3 Extrem General: Yes normal to inspection Psych Appearance: grossly normal and well kempt Mental Status: mental status grossly normal Speech and movement: Normal speech and movement present and Clear speech present Affect: normal affect Attitude: cooperative Thought process: Normal thought process present Thought content: Normal thought content present Insight: Fair insight present (Psych) Judgement: Fair judgement present (Psych) Results AMB Urinalysis, Automated UA Leukoctes 0 Heri/uL Last Edit by [employer] Wilman on 11/11/22 11:38 UA Nitrite Last Edit by [employer] Wilman on 11/11/22 11:38 UA Urobilinogen 0.2 mg/dL Last Edit by [employer] on 11/11/22 11:38 UA Protein 0 mg/dL Last Edit by [employer] on 11/11/22 11:38 UA pH 6.0 Last Edit by [email or web address] on 11/11/22 11:38 UA Blood 0 Osman/uL Last Edit by [employer] Wilman on 11/11/22 11:38 UA Specific [place] 1.025 Last Edit by [employer] on 11/11/22 11:38 UA Ketone Last Edit by Nicci Stovall on 11/11/22 11:38 UA Bilirubin 0 mg/dL Last Edit by [employer]ci Stovall on 11/11/22 11:38 UA Glucose 0 mg/dL Last Edit by Nicci Stovall on 11/11/22 11:38 Results Reviewed Results Reviewed: Laboratory Last Values Urine pH (Auto) 6.0 11/11/22 11:22 Specific [place] (Auto) 1.025 11/11/22 11:22 Urine Protein (Auto) 0 mg/dL 11/11/22 11:22 Glucose (UA)(Auto) 0 mg/dL 11/11/22 11:22 Urine Blood (Auto) 0 Osman/uL 11/11/22 11:22 Urine Bilirubin (Auto) 0 mg/dL 11/11/22 11:22 Urine Urobilinogen (Auto) 0.2 mg/dL 11/11/22 11:22 Leukocyte Esterase (Auto) 0 Heri/uL 11/11/22 11:22 Ordering Physician: Elizabeth Louise Date of Service: 10/21/22 Procedure(s): US retroperitoneal limited Accession Number(s): [id number] cc: Elizabeth Louise~ EXAMINATION: US RETROPERITONEAL LIMITED (RENAL ONLY) CLINICAL INFORMATION: Cyst of kidney, acquired. COMPARISON: Ultrasound abdomen limited 09/17/2021. CT abdomen and pelvis with contrast 11/06/2020. Ultrasound abdomen complete 05/21/2019. X-ray abdomen and chest 06/20/2012. TECHNIQUE: Real-time imaging of the kidneys.? FINDINGS: RIGHT KIDNEY: 9.3 x 5.1 x 5.2 cm (SAG x AP x TRV). The kidney is normal in size, contour, and echogenicity. Renal cortical thickness is normal. No renal calculi or hydronephrosis. Small renal cysts measuring 7 mm in the upper pole, 9 x 1 x 6 mm in the lower pole and 1 x 1.2 cm in the midpole. No imaging follow up recommended. LEFT KIDNEY: 9.3 x 4.7 x 4.9 cm (SAG x AP x TRV). The kidney is normal in size, contour, and echogenicity. Renal cortical thickness is normal. No renal calculi or hydronephrosis. Small cysts measuring 7 x 8 mm in the upper pole and 10 x 8 x 9 mm in the lower pole. No imaging follow up recommended. US/US retroperitoneal limited IMPRESSION: Unremarkable exam. Assessment & Plan Assessment & Plan (1) Renal cyst: Code(s): N28.1 - Cyst of kidney, acquired (2) Microscopic hematuria: Code(s): R31.29 - Other microscopic hematuria Plan In office urinalysis results reviewed with the patient today; as noted above. Recent renal imaging results reviewed with the patient and her son today; as noted above. Patient denies any urinary issues or concerns at this time. Patient is happy with current voiding parameters. Discussed, educated, and encouraged on the importance of drinking plenty of water daily. Renal ultrasound in 1 year. Follow-up in 1 year with imaging to be completed prior; or sooner with any issues, concerns, and or questions. Orders: Orders US renal BI 364 Days N28.1 - Cyst of kidney, acquired AMB Urinalysis Automated Today Z13.9 - Encounter for screening, unspecified Patient Instructions: The patient had an opportunity to ask questions regarding the treatment plan. All questions were answered. Physical exam, labs, and imaging were discussed and reviewed in detail. As well as risks, benefits, and discussion of treatment choices. No major barriers to understanding were identified. The patient expressed understanding and agreement with the above treatment plan. The patient was made aware they should contact our office by phone for worsening of their current condition, the appearance of new symptoms, or with any questions or concerns. Compliance is encouraged with any medications and follow up testing that is ordered. It is a privilege to be allowed the opportunity to participate in? your urological care.? Again, if you have any questions or concerns If you have any questions or concerns please do not hesitate to contact me. The office is [phone]. This note is constructed using voice recognition software. While every effort has been made to ensure accuracy anvil seating press operator errors may have been included. Yours sincerely, JOSIAH Gregory Coding Level of Care Code Est Pt Level 3 (97498) Diagnoses Renal cyst N28.1 Microscopic hematuria R31.29
== END 2022-11-11 12:14 | disposition home or self-care (01) ==
PROVIDERS: Visit Provider Nurse Practitioner Family
DX: N28.1 Cyst of kidney, acquired (principal); R31.29 Other microscopic hematuria
CPT/HCPCS: 99213

== ENCOUNTER → 2022-11-11 11:20 | Outpatient (BNVA) | payer MEDICARE, SELFPAY | PROVIDERS: Visit Provider Nurse Practitioner Family | DX: N28.1 Cyst of kidney, acquired (principal); R31.29 Other microscopic hematuria; G40.909 Epilepsy, unspecified, not intractable, without status epilepticus | CPT/HCPCS: 99212 ==

== ENCOUNTER 2023-02-17 10:28 | Outpatient (AMB) | payer MEDICARE, SELFPAY ==
[2023-02-17 10:33] VITALS: BP 118/48; PULSE 83; O2SAT 88
--- NOTE | 2023-02-17 10:33 | MHC.OFFVIS ---
Intake Vital Signs 02/17/23 10:33 Height 5 ft 1 in BP 118/48 L Blood Pressure Location Lt brachial Position Sitting Pulse 83 Pulse Source Pulse Oximeter Pulse Oximetry (%) 88 L Oxygen Delivery Method Room Air Intake Visit Reasons: copd Intake Note: pt is here for follow up and has not been feeling well, pt has been coughing and unable to get phlegm out, pt does feel little short of breath with this URI, she thinks it is sinus infection. pt has oxygen at home, for nightime usage. [employer] Required: No Allergies amoxicillin [AMOXICILLIN] Allergy (Intermediate, Verified 02/17/23 10:54) STOMACH ISSUES pollen extracts [POLLEN] Allergy (Mild, Verified 02/17/23 10:54) RUNNY NOSE, SNEEZING, ITCHY EYES Medication List - Last Reconciled 02/17/23 by Andrew Menendez MD Advair Diskus 250-50 mcg/dose (fluticasone propion-salmeterol) 1 inh inhalation BID 30 days NS albuterol sulfate 90 mcg/actuation (Ventolin HFA) 2 puffs PO Q6H PRN amlodipine 10 mg PO DAILY blood pressure monitor (Blood Pressure Kit) As directed budesonide-formoterol 80-4.5 mcg/actuation (Symbicort) 2 puffs inhalation Q12H 30 days cetirizine 10 mg PO BEDTIME PRN cholecalciferol (vitamin D3) 50 mcg PO DAILY diphenoxylate-atropine 2.5-0.025 mg 1 tab PO BID ferrous gluconate (Ferate) 240 mg PO DAILY fluticasone propionate 50 mcg/actuation (Flonase Allergy Relief) 2 sprays intranasal DAILY PRN levetiracetam 500 mg PO BID levothyroxine 112 mcg PO DAILY 90 days memantine (Namenda) 5 mg PO BID 90 days omeprazole 20 mg PO DAILY sertraline 50 mg PO DAILY simvastatin 20 mg PO BEDTIME 90 days Do you need a note to return to daycare/school/sports/work: No HPI copd HPI Details THIS 77 YEARS OLD VERY PLEASANT FEMALE, IS HERE FOR 6 MONTHS FOLLOW-UP. COMPLAINS THAT FOR THE LAST 1 WEEK SHE IS HAVING INCREASED NASAL CONGESTION, HAS SOME DISCOMFORT IN THE SINUSES, INCREASED COUGH BUT NOT ABLE TO EXPECTORATES MUCH. SHE IS HAVING INCREASED SHORTNESS OF BREATH. SHE IS SUPPOSED TO USE OXYGEN 2 L/MINUTE AT NIGHT BUT SHE HAS BEEN USING IT ONLY OFF AND ON DUE TO INCREASED NASAL CONGESTION. SHE DENIES FEVER OR CHILLS .. ACCORDING TO HER SON, SHE SHE IS PRONE TO HAVE RESPIRATORY INFECTIONS AT THE CHANGE OF SEASONS. [facility] Medical History (Updated 02/17/23 @ 11:02 by Andrew Menendez MD) Nocturnal hypoxemia Acute rhinosinusitis Microscopic hematuria Renal cyst Osteoarthritis, knee COPD (chronic obstructive pulmonary disease) Acute and chronic respiratory failure with hypoxia COPD exacerbation LFT elevation Shortness of breath Rash Bilateral knee pain Hematuria Frequent falls Left-sided back pain Seizure disorder Allergic rhinitis Generalized abdominal pain Anemia Initial Medicare annual wellness visit Screening for osteoporosis Hypoxemia Anemia Syncope Nausea Chronic diarrhea Diarrhea Bile salt-induced diarrhea Cutaneous lupus erythematosus Osteoarthritis Hypertension Vitamin D deficiency COPD (chronic obstructive pulmonary disease) Ford's esophagus GERD (gastroesophageal reflux disease) Hypothyroid Surgical History History of cataract surgery History of rectal surgery History of ear surgery History of cholecystectomy History of eye surgery Family History Father Lymphoma Lung cancer Mother Hypertension Diabetes Sister Brain cancer Social History Household Members: Family Household Members Other:: son, his and their 2 kids Housing: House Do you presently have visiting nurse or other home services: No Alcohol intake: former Patient Tobacco Use Status: Former Tobacco user e-Cigarette/Vaping Use: Never Used Second Hand Smoke Exposure: No service: No Current occupational status: retired Cognitive needs: No Hearing needs: Yes (hearing aide) Vision needs: Yes (Glasses) Review of Systems Const All systems reviewed & are unremarkable except as noted in HPI and below Eyes Reports no additional complaints ENT Reports nasal congestion (Mild off and) Card Denies chest pain, Denies irregular heart rhythm and Denies leg edema Resp Reports as per HPI GI Reports heartburn (GERD symptoms controlled with med) Reports no additional complaints Musc Reports no additional complaints Skin/Breast Reports system reviewed and no additional complaints, except as documented Neuro Reports no additional complaints Psych Reports no additional complaints Endo Reports no additional complaints Physical Exam Vital Signs: Last Vital Signs Pulse 83 02/17/23 10:33 BP 118/48 L 02/17/23 10:33 Pulse Ox 88 L 02/17/23 10:33 Oxygen Delivery Method Room Air 02/17/23 10:33 Const General: comfortable, no acute distress, alert and awake Orientation/consciousness: patient oriented x3 HEENT Head: Yes normal to inspection General nose exam: No nasal polyps present, No nasal discharge present and Other nasal findings present (Marked nasal congestion on both sides with hypertrophy of the turbinates ) Face and sinus: Yes sinuses nontender Mouth: oropharynx normal Throat: Yes posterior oropharynx normal Eyes General: appearance normal, both eyes and all related structures Neck Neck: Yes normal visual inspection, Yes no lymphadenopathy, Yes trachea midline and Yes no JVD Thyroid: Thyroid normal Chest Chest palpation & inspection: normal inspection of the chest, normal palpation of entire chest wall and no tenderness Resp Other: Percussion note resonant, breath sounds are slightly distant with prolonged expiratory phase. A few wheezes in the upper part of the chest, no crepitations. Cardio Palpation: normal PMI Rate: regular rate Rhythm: regular rhythm Heart sounds: no gallops and no murmurs GI Palpation (GI): Soft to palpation, nontender, No hepatosplenomegaly present and no masses Auscultation: normal bowel sounds Back/Spine/Pelvis Thoracic/Lumbar Spine: thoracic and lumbar spine normal to inspection Skin General skin exam: no rashes or lesions noted and other (Hands are cold, due to chronic Raynaud syndrome) Neuro General: patient oriented x3 and no focal motor deficits Cranial nerves: Yes CN's II-XII intact bilaterally Extrem General: Yes normal to inspection, Yes no clubbing, cyanosis or edema and Yes no calf tenderness Psych Appearance: grossly normal and well kempt Speech and movement: Normal speech and movement present Assessment & Plan Assessment & Plan (1) COPD (chronic obstructive pulmonary disease): Comment: Clinically she does have chronic obstructive pulmonary disease. Moderately severe and well controlled at this time. TX : Advair 250-50 2 puffs BID Proair 2 puffs q 6 hrs PRN She does have a spacing unit at home and she is advised to use the spacing unit for the above inhalers. Code(s): J44.9 - Chronic obstructive pulmonary disease, unspecified (2) Allergic rhinitis: Comment: MILD MOSTLY SEASONAL OR DUE TO DUST AND SMOKE. TX : CONTINUE FLONASE 2 SPRAY EACH NOSTRIL DAILY, AND MAY USE OTC MEDS SUCH CLARITIN 10 MG ONLY P.R.N. Code(s): J30.9 - Allergic rhinitis, unspecified (3) Acute rhinosinusitis: Comment: At present she has increased nasal congestion with discomfort in the sinuses, c/w acute rhinosinusitis. TX: Will treat her with doxycycline 100 b.i.d. for 10 days. She will continue to use Flonase 1 spray in each nostril daily. Code(s): J01.90 - Acute sinusitis, unspecified (4) Nocturnal hypoxemia: Comment: She is known to have nocturnal hypoxemia and also has intermittent exercise induced hypoxemia during the daytime. Advised to use O2 2 L/minute every night, and p.r.n. during the daytime. Code(s): G47.34 - Idiopathic sleep related nonobstructive alveolar hypoventilation Medications: New doxycycline hyclate 100 mg PO BID 20 tabs 0RF 10 days Coding Level of Care Code Est Pt Level 3 (62506) Diagnoses COPD (chronic obstructive pulmonary disease) J44.9 Allergic rhinitis J30.9 Acute rhinosinusitis J01.90 Nocturnal hypoxemia G47.34
== END 2023-02-17 10:54 | disposition home or self-care (01) ==
PROVIDERS: PCP Internal Medicine; Visit Provider Internal Medicine
DX: J44.9 Chronic obstructive pulmonary disease, unspecified (principal); J30.9 Allergic rhinitis, unspecified; J01.90 Acute sinusitis, unspecified; G47.34 Idiopathic sleep related nonobstructive alveolar hypoventilation
CPT/HCPCS: 99213

== ENCOUNTER → 2023-02-17 10:28 | Outpatient (BNVA) | payer MEDICARE, SELFPAY | PROVIDERS: PCP Internal Medicine; Visit Provider Internal Medicine | DX: J44.9 Chronic obstructive pulmonary disease, unspecified (principal); J30.9 Allergic rhinitis, unspecified; J01.90 Acute sinusitis, unspecified; G47.34 Idiopathic sleep related nonobstructive alveolar hypoventilation | CPT/HCPCS: 99212 ==

== ENCOUNTER 2023-04-14 11:08 | Outpatient (AMB) | payer MEDICARE, SELFPAY ==
[2023-04-14 11:11] VITALS: BP 138/90; PULSE 61; O2SAT 92; BMI 22.9
--- NOTE | 2023-04-14 11:11 | MHC.PC.OV ---
Vital Signs 04/14/23 11:11 Height 5 ft 1 in Weight 121 lb 0.8 oz BMI 22.9 BP 138/90 H Blood Pressure Location Lt brachial Position Sitting Pulse 61 Pulse Source Pulse Oximeter Pulse Oximetry (%) 92 Oxygen Delivery Method Room Air Intake Visit Reasons: cognitive impairment [employer] Calculator Required: No Allergies amoxicillin [AMOXICILLIN] Allergy (Intermediate, Verified 04/14/23 11:12) STOMACH ISSUES pollen extracts [POLLEN] Allergy (Mild, Verified 04/14/23 11:12) RUNNY NOSE, SNEEZING, ITCHY EYES Tobacco use date assessed: 04/14/23 Fall risk assessment: No Falls in past year Last assessed Fall Risk: 04/14/23 HPI cognitive impairment HPI Details 77-year-old female with cognitive impairment, Ford's esophagus hypertension hypothyroidism generalized anxiety disorder COPD and seizure disorder last seen in October 2022. Patient's has graduated from colonoscopy bone density was done in May 2017. Review of the notes in February did see pulmonary COPD on Advair and ProAir continue with Flonase patient was given an antibiotic for rhino sinusitis and with nocturnal hypoxemia on oxygen. Patient also follows up with urology for the hematuria with the hematuria cytology was negative stable presently [facility] Medical History (Updated 04/14/23 @ 11:59 by Shane Nelson MD) Nocturnal hypoxemia Acute rhinosinusitis Microscopic hematuria Renal cyst Osteoarthritis, knee COPD (chronic obstructive pulmonary disease) Acute and chronic respiratory failure with hypoxia COPD exacerbation LFT elevation Shortness of breath Rash Bilateral knee pain Hematuria Frequent falls Left-sided back pain Seizure disorder Allergic rhinitis Generalized abdominal pain Anemia Initial Medicare annual wellness visit Screening for osteoporosis Hypoxemia Anemia Syncope Nausea Chronic diarrhea Diarrhea Bile salt-induced diarrhea Cutaneous lupus erythematosus Osteoarthritis Hypertension Vitamin D deficiency COPD (chronic obstructive pulmonary disease) Ford's esophagus GERD (gastroesophageal reflux disease) Hypothyroid Surgical History History of cataract surgery History of rectal surgery History of ear surgery History of cholecystectomy History of eye surgery Family History Father Lymphoma Lung cancer Mother Hypertension Diabetes Sister Brain cancer Social History Household Members: Family Household Members Other:: son, his and their 2 kids Housing: House Do you presently have visiting nurse or other home services: No Alcohol intake: former Patient Tobacco Use Status: Former Tobacco user e-Cigarette/Vaping Use: Never Used Second Hand Smoke Exposure: No service: No Current occupational status: retired Cognitive needs: No Hearing needs: Yes (hearing aide) Vision needs: Yes (Glasses) Questionnaire PHQ-9 Over the last 2 weeks, how often have you been bothered by any of the following problems? 1. Little interest or pleasure in doing things: not at all 2. Feeling down, depressed, or hopeless: not at all 3. Trouble falling or staying asleep, or sleeping too much: not at all 4. Feeling tired or having little energy: not at all 5. Poor appetite or overeating: not at all 6. Feeling bad about yourself - or that you are a failure or have let yourself or your family down: not at all 7. Trouble concentrating on things, such as reading the newspaper or watching television: not at all 8. Moving or speaking so slowly that other people could have noticed. Or the opposite - being so fidgety or restless that you have been moving around a lot more than usual: not at all 9. Thoughts that you would be better off or of hurting yourself in some way: not at all Total score: 0 Depression Screening Interpretation: Negative Depression Screening Done: Yes Source: Developed by Drs. Juan R Pierre, Mary Kraft, Matti Flores and colleagues, with an educational benton from [employer]. Thrive Questionnaire Date Thrive assessed: 05/06/22 AUDIT C Alcohol Use Questionnaire (AUDIT-C) 1. How often do you have a drink containing alcohol?: Never 3. How often do you have six or more drinks on one occasion?: Never Total Score: 0 ANGELES-7 AMB Questionnaire ANGELES-7 Date ANGELES - 7 assessed: 04/14/23 Source: Developed by Drs. Juan R Pierre, Mary Kraft, Matti Flores and colleagues, with an educational benton from [employer]. Physical exam (Primary Care) Vital Signs: Last Vital Signs Pulse 61 04/14/23 11:11 BP 138/90 H 04/14/23 11:11 Pulse Ox 92 04/14/23 11:11 Oxygen Delivery Method Room Air 04/14/23 11:11 BMI result Body Mass Index 22.9 Tobacco/Smoking Status: Tobacco use Status Tobacco use date assessed 04/14/23 04/14/23 11:12 Patient Tobacco Use Status Former Tobacco user 04/14/23 11:12 e-Cigarette/Vaping Use Never Used 04/14/23 11:12 PHQ-9: PHQ-9 Score PHQ-9: Total score 0 04/14/23 11:19 Depression Screening Interpretation: Negative Thrive Assessment: Date of Thrive Assessment Date Thrive assessed 05/06/22 04/14/23 11:12 Const General: alert; No acute distress Eyes Conjunctivae: conjunctivae normal Resp Auscultation: clear to auscultation bilaterally Cardio Rate: regular rate Rhythm: regular rhythm GI Inspection: Yes normal to inspection Extrem General: Yes normal to inspection and No edema Assessment and Plan Assessment & Plan (1) COPD (chronic obstructive pulmonary disease): Comment: Clinically she does have chronic obstructive pulmonary disease. Moderately severe and well controlled at this time. TX : Advair 250-50 2 puffs BID Proair 2 puffs q 6 hrs PRN She does have a spacing unit at home and she is advised to use the spacing unit for the above inhalers. Code(s): J44.9 - Chronic obstructive pulmonary disease, unspecified Plan: Patient follows up with Pulmonary and continues with a inhaler (2) Age related osteoporosis: Comment: April 2021 osteoporosis spine Code(s): M81.0 - Age-related osteoporosis without current pathological fracture Plan: Discussed about the bone density (3) Cognitive impairment: Code(s): R41.89 - Other symptoms and signs involving cognitive functions and awareness Plan: Continue with supportive treatment (4) Hypertension: Code(s): I10 - Essential (primary) hypertension Qualifiers: Hypertension type: essential hypertension Qualified Code(s): I10 - Essential (primary) hypertension Plan: Continue with blood pressure medication. Decrease salt intake and exercise patient on amlodipine 10 mg once a day. BP high in the office today , continue to monitor at home (5) Ford's esophagus: Code(s): K22.70 - Ford's esophagus without dysplasia Qualifiers: Ford's esophagus type: with low grade dysplasia Qualified Code(s): K22.710 - Ford's esophagus with low grade dysplasia Plan: Avoid the foods that causes that usually spicy foods, tomato products, juices, coffee, soda and foods that your sensitive to. After eating do not lie down, allow 3-4 hours before in lie down. And keep the head of bed above 30 degrees to avoid the acid from going up. (6) Hypothyroid: Code(s): E03.9 - Hypothyroidism, unspecified Qualifiers: Hypothyroidism type: acquired Qualified Code(s): E03.9 - Hypothyroidism, unspecified Plan: Continue with thyroid medication and will have to follow that up (7) Nocturnal hypoxemia: Comment: She is known to have nocturnal hypoxemia and also has intermittent exercise induced hypoxemia during the daytime. Advised to use O2 2 L/minute every night, and p.r.n. during the daytime. Code(s): G47.34 - Idiopathic sleep related nonobstructive alveolar hypoventilation Plan: Continue with oxygen at night patient follows up with Pulmonary (8) LFT elevation: Code(s): R79.89 - Other specified abnormal findings of blood chemistry Plan: Will need to repeat the blood work (9) Hypercholesterolemia: Code(s): E78.00 - Pure hypercholesterolemia, unspecified Plan: Avoid fried foods, chicken skin, eggs, butter margarine, pastries and meat. Be it pork or beef they have a lot of cholesterol on simvastatin 20 mg at bedtime LDL goal of less than 130 Coding Level of Care Code Est Pt Level 4 (73545) Diagnoses COPD (chronic obstructive pulmonary disease) J44.9 Age related osteoporosis M81.0 Cognitive impairment R41.89 Essential hypertension I10 Hypertension type: essential hypertension Ford's esophagus with low grade dysplasia K22.710 Ford's esophagus type: with low grade dysplasia Acquired hypothyroidism E03.9 Hypothyroidism type: acquired Nocturnal hypoxemia G47.34 LFT elevation R79.89 Hypercholesterolemia E78.00
== END 2023-04-14 12:03 | disposition home or self-care (01) ==
PROVIDERS: PCP Internal Medicine; Visit Provider Internal Medicine
DX: J44.9 Chronic obstructive pulmonary disease, unspecified (principal); M81.0 Age-related osteoporosis without current pathological fracture; R41.89 Other symptoms and signs involving cognitive functions and awareness; I10 Essential (primary) hypertension; K22.710 Barrett's esophagus with low grade dysplasia; E03.9 Hypothyroidism, unspecified; G47.34 Idiopathic sleep related nonobstructive alveolar hypoventilation; R79.89 Other specified abnormal findings of blood chemistry; E78.00 Pure hypercholesterolemia, unspecified
CPT/HCPCS: 99214

== ENCOUNTER 2023-06-21 19:23 | Emergency (ER) | payer MEDICARE, SELFPAY ==
--- NOTE | ~2023-06-21 | CT_ITS ---
EXAMINATION: CT HEAD WITHOUT CONTRAST CLINICAL INFORMATION: Fall. COMPARISON: CT head from 01/15/2021. Brain MRI from 07/22/2017. TECHNIQUE: Contiguous axial imaging was performed from the skull base to vertex without intravenous administration of contrast. This CT examination was performed using dose optimization techniques as appropriate, variously including the following: *Automated exposure control. *Adjustment of mA and/or kV according to patient size (this includes techniques or standardized protocols for targeted exams where dose is matched to indication/reason for exam; i.e. extremities or head). *Use of iterative reconstruction technique. DLP: 550 mGy-cm FINDINGS: There is no evidence of acute intracranial hemorrhage or edematous territorial infarction. Nelson-white matter differentiation is preserved. Chronic perivascular space versus lacunar infarct along the posterior aspect of the right lentiform nucleus. Confluent hypoattenuation in the periventricular and deep white matter. Proportional prominence of the ventricles and sulcal spaces without evidence of obstructive hydrocephalus. No abnormal mass effect or midline shift. No extra-axial fluid collections. Calcific atherosclerotic disease of the intracranial internal carotid arteries and vertebral arteries. No acute soft tissue or osseous abnormalities. Moderate mucosal thickening of the left sphenoid air cell. Mild mucosal thickening of the remaining paranasal sinuses. Moderate rightward nasal septal deviation. The mastoid air cells and middle ear cavities are clear. Bilateral lens extractions. CT/CT head/brain wo IV con IMPRESSION: 1. No evidence of acute intracranial hemorrhage or edematous territorial infarction. 2. Extensive underlying microangiopathy and generalized cerebral volume loss.
[2023-06-21 19:29] VITALS: BP 122/72; PULSE 65; RESP 18; TEMP 36.8; O2SAT 90; BMI 23.5
[2023-06-21 19:46] LABS: MANUAL DIFF FLAG NO
[2023-06-21 19:47] LABS: Basophils Percent Auto 0.7 % (0-2); Eosinophils Absolute Auto 0.1 X10*3/uL (0.0-0.4); Eosinophils Percent Auto 1.9 % (0-4); Hematocrit 44.8 % (37.0-47.0); Hemoglobin 14.6 g/dl (12.0-16.0); Imm Gran Abs Auto 0.01 X10*3/uL (0.00-0.03); Imm Gran Pct Auto 0.2 % (0.0-0.4); Lymphocytes Absolute Auto 1.7 X10*3/uL (1.2-4.9); Lymphocytes Percent Auto 31.3 % (20-40); Mean Corpuscular HGB Conc 32.6 g/dl (31.0-35.0); Mean Corpuscular Volume 85.8 fL (80.0-98.0); Mean Platelet Volume 10.9 fL (9.4-12.3); Monocytes Absolute Auto 0.5 X10*3/uL (0.1-1.2); Monocytes Percent Auto 9.8 % (2-11); Neutrophils Percent Auto 56.1 % (45-73); Platelet Count 225 X10*3/uL (160-400); Red Blood Count 5.22 X10*6/uL (4.20-5.50); Red Cell Distribution Width 14.2 % (11.0-16.0); White Blood Count 5.4 X10*3/uL (4.8-10.8)
[2023-06-21 20:02] LABS: Alanine Aminotransferase 8 U/L (0-31); Albumin Level 3.8 g/dL (3.5-5.0); Alkaline Phosphatase 83 U/L (39-117); Anion Gap 12 (12-20); Aspartate Amino Transferase 16 U/L (5-31); Bilirubin Total 0.2 mg/dL (0.0-1.0); Blood Urea Nitrogen 16 mg/dL (9-16); Calcium 9.4 mg/dL (8.4-10.2); Carbon Dioxide 27 mmol/L (22-29); Chloride 109 mmol/L (96-108); Creatinine Clr Calc Pharmacy 37.6; Estimated Glomerular Filt Rate 58; Glucose Random 88 mg/dL (60-115); Potassium 3.9 mmol/L (3.3-5.1); Sodium 144 mmol/L (135-145); Total Protein 7.2 g/dL (6.5-8.0)
--- NOTE | 2023-06-21 21:50 | ECG_ITS ---
Test Reason : Dizziness Blood Pressure : / mmHG Vent. Rate : 060 BPM Atrial Rate : 060 BPM P-R Int : 166 ms QRS Dur : 084 ms QT Int : 434 ms P-R-T Axes : 080 074 073 degrees QTc Int : 434 ms Normal sinus rhythm Normal ECG When compared with ECG of 17-SEP-2021 09:40, No significant change was found Referred By: Deidra Anderson Electronically Signed By:ALAN PATTON MD
--- NOTE | 2023-06-21 21:51 | ED.GENADULT ---
HPI - General Adult General Chief complaint: Weakness Stated complaint: ? seizure or stroke Time Seen by Provider: 06/21/23 21:40 Source: patient and family Mode of arrival: ambulatory Limitations: no limitations History of Present Illness HPI narrative: In comes to the emergency room accompanied by her daughter. Patient states that earlier today, 6+ hours ago, patient was in a restaurant and started feeling pins and needle sensation throughout her scalp. Patient states that there was a door nearby, patient slid down and lower herself to the ground. Patient denies chest pain or shortness of breath, no upper or lower extremity weakness numbness or tingling. Related Data Home Medications Medication Instructions Recorded Confirmed ferrous gluconate 240 mg (27 mg 240 mg PO DAILY 09/05/21 04/22/22 iron) tablet (Ferate) diphenoxylate-atropine 2.5 1 tab PO BID 10/09/21 04/22/22 mg-0.025 mg tablet fluticasone propionate 50 2 spray intranasal DAILY PRN 08/26/22 mcg/actuation nasal spray,suspension (Flonase Allergy Relief) levetiracetam 250 mg tablet 500 mg PO BID 08/26/22 Previous Rx's Medication Instructions Recorded blood pressure monitor (Blood #1 ea 05/06/22 Pressure Kit) sertraline 50 mg tablet 50 mg PO DAILY #90 tabs 06/19/22 levothyroxine 112 mcg tablet 112 mcg PO DAILY 90 days #90 tabs 07/24/22 Advair Diskus 250 mcg-50 mcg/dose 1 inh inhalation BID copd 30 days 08/28/22 powder for inhalation (fluticasone #60 ea propion-salmeterol) albuterol sulfate 90 mcg/actuation 2 puff PO Q6H PRN shortness of 10/02/22 aerosol inhaler (Ventolin HFA) breath or wheezing #8.5 grams amlodipine 10 mg tablet 10 mg PO DAILY #90 tabs 10/02/22 budesonide-formoterol HFA 80 2 puff inhalation Q12H 30 days 10/02/22 mcg-4.5 mcg/actuation aerosol #10.2 grams inhaler (Symbicort) cetirizine 10 mg capsule 10 mg PO BEDTIME PRN Allergy 10/02/22 Symptoms #90 caps cholecalciferol (vitamin D3) 50 50 mcg PO DAILY #30 caps 10/02/22 mcg (2,000 unit) capsule omeprazole 20 mg capsule,delayed 20 mg PO DAILY #90 caps 04/02/23 release memantine 5 mg tablet (Namenda) 5 mg PO BID 90 days #180 tabs 05/01/23 simvastatin 20 mg tablet 20 mg PO BEDTIME 90 days #90 tabs 06/03/23 Allergies Allergy/AdvReac Type Severity Reaction Status Date / Time amoxicillin [AMOXICILLIN] Allergy Intermediate STOMACH Verified 06/21/23 19:28 ISSUES pollen extracts [POLLEN] Allergy Mild RUNNY Verified 06/21/23 19:28 NOSE, SNEEZING, ITCHY EYES Review of Systems Review of Systems: Constitutional : No Weight loss, No Fever, No Chills, No Night Sweats, No Fatigue, No Malaise ENT/Mouth : No Hearing loss, No Ear Pain, No Nasal Congestion, No Sinus Pain, No Hoarseness, No sore throat, No Rhinorrhea, No Swallowing Difficulty Eyes: No Eye Pain, No Swelling, No Redness, No Foreign Body, No Discharge, No Vision Changes Cardiovascular : No Chest Pain, No SOB, No Dyspnea on Exertion, No Orthopnea, No Edema, No Palpitations Respiratory : No Cough, No Sputum, No Wheezing, No Smoke Exposure, No Dyspnea Gastrointestinal : No Nausea, No Vomiting, No Diarrhea, No Constipation, No abdominal Pain, No Hematochezia, No Melena Genitourinary : no irregular bleeding, No Dysuria, No Urinary Frequency, No Hematuria, No Urinary Incontinence, No Urgency, No Flank Pain, No Urinary Flow Changes, No Hesitancy Musculoskeletal : No joint pain, No Myalgias, No Joint Swelling Skin : No Skin Lesions, No rash Neuro : No Weakness, No Numbness, complaining of paresthesias around the scalp area, No Loss of Consciousness, patient feeling ?woozy but self-resolved, No Headache Psych : No Anxiety/Panic, No Depression, No SI/HI/AH/VH, No Social Issues, Heme/Lymph: No Bruising, No Bleeding,No Lymphadenopathy Endocrine : No Polyuria, No Polydipsia, No Temperature Intolerance PMFSH Past Medical History Medical History Nocturnal hypoxemia Acute rhinosinusitis Microscopic hematuria Renal cyst Osteoarthritis, knee COPD (chronic obstructive pulmonary disease) Acute and chronic respiratory failure with hypoxia COPD exacerbation LFT elevation Shortness of breath Rash Bilateral knee pain Hematuria Frequent falls Left-sided back pain Seizure disorder Allergic rhinitis Generalized abdominal pain Anemia Initial Medicare annual wellness visit Screening for osteoporosis Hypoxemia Anemia Syncope Nausea Chronic diarrhea Diarrhea Bile salt-induced diarrhea Cutaneous lupus erythematosus Osteoarthritis Hypertension Vitamin D deficiency COPD (chronic obstructive pulmonary disease) Ford's esophagus GERD (gastroesophageal reflux disease) Hypothyroid Surgical History History of cataract surgery History of rectal surgery History of ear surgery History of cholecystectomy History of eye surgery Family History Family History Father Lymphoma Lung cancer Mother Hypertension Diabetes Sister Brain cancer Social History Social History Household Members: Family Household Members Other:: son, his and their 2 kids Housing: House Do you presently have visiting nurse or other home services: No Alcohol intake: former Patient Tobacco Use Status: Former Tobacco user Smoked in Last 30 Days: No e-Cigarette/Vaping Use: Never Used Second Hand Smoke Exposure: No Use of substances other than those prescribed or required for medical reasons: No Advance Directives: No Advance Directives Information Provided: No service: No Current occupational status: retired Cognitive needs: No Hearing needs: Yes (hearing aide) Vision needs: Yes (Glasses) Physical Exam ED Vital Signs: Vital Signs - 24 hr 06/21/23 19:29 06/21/23 22:34 06/22/23 00:12 Temperature 98.3 F 97.7 F Pulse Rate 65 76 62 Respiratory Rate 18 16 Blood Pressure 122/72 188/68 H 203/71 H Pulse Oximetry 90 L 94 Oxygen Delivery Method Room Air Nasal Cannula Oxygen Flow Rate 2 06/22/23 00:13 06/22/23 00:13 Temperature Pulse Rate 61 69 Respiratory Rate Blood Pressure 192/73 H 174/81 H Pulse Oximetry Oxygen Delivery Method Oxygen Flow Rate BMI result Body Mass Index 23.5 Const Other: Appearance: Alert. Oriented X3. No acute distress. Eyes: Pupils equal, round and reactive to light. ENT: Pharynx normal. Neck: Normal inspection. Neck supple. No lymph nodes noted. No crepitus CVS: Normal heart rate and rhythm. Pulses normal. Normal S1 and S2 Respiratory: No respiratory distress. Breath sounds normal. No Wheezing. No rales Abdomen: Soft and nontender. No rigidity. No distention. Skin: Skin warm and dry. Normal skin color. Normal skin turgor. Extremities: No lower extremity edema. No Lacerations. No Rash Neuro: Oriented X 3. No motor deficit. No sensory deficit. Moving all extremities. No slurred speech. CN 2 through 12 grossly intact Psych: calm, cooperative, normal affect NIH Stroke Scale Internal: Initial- Upon Arrival Level of Consciousness: Alert Level of Consciousness Questions: Answers both questions correctly Level of Consciousness Commands: Performs both tasks correctly Best Gaze: Normal Visual: No visual loss Facial Palsy: Normal Motor Arm (Right): No drift Motor Arm (Left): No drift Motor Leg (Right): No drift Motor Leg (Left): No drift Limb Ataxia: Absent Sensory: Normal Best Language: No aphasia Dysarthia: Normal Extinction and Inattention: No abnormality Score: 0 Course Course Course Narrative: -all of patient's labs and imaging pending -orthostatics pending -at this time patient is asymptomatic Medical Decision Making Medical Decision Making [facility] Narrative: -my interpretation of labs: Patient's hematology and chemistry within normal limits, patient has leukocyte esterase present in the urine. Patient does not have any UTI symptoms. Patient has had similar urinalysis results that only grew mixed bacterial deisi/contaminant. At this time, antibiotics not indicated. -I reviewed patient's previous medical records and ER visits, patient has been evaluated multiple times for orthostatic/vasovagal hypotension for various reasons. -patient states that she feels well, denies paresthesias at this time. Vital stable -my interpretation of head CT, no intracranial bleed. -my interpretation of EKG: Normal sinus rhythm, heart rate 60, no ST segment depression or elevation, no T-wave inversion, QTC 434 -orthostatic vitals were negative. Patient asymptomatic. -patient's daughter that she has an appointment pending with Dr. Harp for follow-ups. -patient's symptoms are not compatible with TIA or stroke Differential Diagnosis Differential Diagnoses: The differential diagnosis associated with the presentation includes (Orthostatic hypotension, vasovagal hypotension, chronic paresthesias) Admission/Observation Consideration of admission/observation: Escalation of care including admission/observation considered (Given patient's symptoms and presentation on arrival, admission was considered) Lab Data MDM Lab Attestation statement: I reviewed the patient's lab results. 06/21/23 19:42 06/21/23 19:42 Labs: Lab Results 06/21/23 06/21/23 Range/Units 19:42 22:58 WBC 5.4 (4.8-10.8) X10*3/uL RBC 5.22 (4.20-5.50) X10*6/uL Hgb 14.6 (12.0-16.0) g/dl Hct 44.8 (37.0-47.0) % MCV 85.8 (80.0-98.0) fL MCH 28.0 (27.0-33.0) pg MCHC 32.6 (31.0-35.0) g/dl RDW 14.2 (11.0-16.0) % Plt Count 225 (160-400) X10*3/uL MPV 10.9 (9.4-12.3) fL Immature Gran % (Auto) 0.2 (0.0-0.4) % Neut % (Auto) 56.1 (45-73) % Lymph % (Auto) 31.3 (20-40) % [place] % (Auto) 9.8 (2-11) % Eos % (Auto) 1.9 (0-4) % Baso % (Auto) 0.7 (0-2) % Lymph # (Auto) 1.7 (1.2-4.9) X10*3/uL [place] # (Auto) 0.5 (0.1-1.2) X10*3/uL Eos # (Auto) 0.1 (0.0-0.4) X10*3/uL Baso # (Auto) 0.0 (0.0-0.2) X10*3/uL Abs Immat Gran (auto) 0.01 (0.00-0.03) X10*3/uL Absolute Neuts (auto) 3.0 (2.0-8.3) x10*3/uL Absolute Nucleated RBC 0.000 (0.0-0.012) X10*3/uL Nucleated RBC % (auto) 0.0 (0.0-0.2) /100WBC Sodium 144 (135-145) mmol/L Potassium 3.9 (3.3-5.1) mmol/L Chloride 109 H (96-108) mmol/L Carbon Dioxide 27 (22-29) mmol/L Anion Gap 12 (12-20) BUN 16 (9-16) mg/dL Creatinine 0.93 (0.5-1.4) mg/dL Estim Creat Clear Calc 37.6 Estimated GFR 58 Random Glucose 88 (60-115) mg/dL Calcium 9.4 D (8.4-10.2) mg/dL Total Bilirubin 0.2 (0.0-1.0) mg/dL AST 16 (5-31) U/L ALT 8 (0-31) U/L Alkaline Phosphatase 83 (39-117) U/L Troponin I High Sens < 2.7 (<3.5-17.0) ng/L Total Protein 7.2 (6.5-8.0) g/dL Albumin 3.8 (3.5-5.0) g/dL Urine Color Yellow Urine Appearance Cloudy Urine pH 5.5 (5.0-9.0) Ur Specific [place] 1.020 (1.005-1.025) Urine Protein 30 (1+) H (Neg-Trace) mg/dL Urine Glucose (UA) Negative (Negative) mg/dL Urine Ketones Negative (Negative) mg/dL Urine Blood Trace H (Negative) Urine Nitrite Negative (Negative) Ur Leukocyte Esterase Large (3+) H (Negative) Urine RBC 0-2 (0-2) /HPF Urine WBC 21-50 (0-5) /HPF Ur Squamous Epith Cells 11-20 (0-2) /HPF Urine Bacteria Trace (None Seen) Hyaline Casts 0-2 (0-2) /LPF Urine Yeast Present Independent Interpretation I performed an independent interpretation of an: CT Scan Radiology Impression Discussion of test interpretation with radiology: I have reviewed the radiologist's reading. Radiologist Impression: FINDINGS: There is no evidence of acute intracranial hemorrhage or edematous territorial infarction. Nelson-white matter differentiation is preserved. Chronic perivascular space versus lacunar infarct along the posterior aspect of the right lentiform nucleus. Confluent hypoattenuation in the periventricular and deep white matter. Proportional prominence of the ventricles and sulcal spaces without evidence of obstructive hydrocephalus. No abnormal mass effect or midline shift. No extra-axial fluid collections. Calcific atherosclerotic disease of the intracranial internal carotid arteries and vertebral arteries. No acute soft tissue or osseous abnormalities. Moderate mucosal thickening of the left sphenoid air cell. Mild mucosal thickening of the remaining paranasal sinuses. Moderate rightward nasal septal deviation. The mastoid air cells and middle ear cavities are clear. Bilateral lens extractions. CT/CT head/brain wo IV con IMPRESSION: 1. No evidence of acute intracranial hemorrhage or edematous territorial infarction. 2. Extensive underlying microangiopathy and generalized cerebral volume loss. Critical Care Time Critical Care Time Critical Care Time: Yes Total Critical Care Time: 45 Attestation: I have personally provided critical care time. Time includes review of lab data, radiology results, discussion with consultants, and monitoring for potential decompensation. Intervention performed as documented. Discharge Plan Discharge Clinical Impression: Paresthesias, Orthostatic hypotension Patient Disposition: Home, Self-Care Instructions: Paresthesia (ED), Hypotension (ED) Prescriptions: No Action sertraline 50 mg tablet 50 mg PO DAILY Qty: 90 3RF levothyroxine 112 mcg tablet 112 mcg PO DAILY 90 Days Qty: 90 3RF fluticasone propion-salmeterol [Advair Diskus] 250-50 mcg/dose blister with device 1 inh inhalation BID 30 Days Qty: 60 3RF amlodipine 10 mg tablet 10 mg PO DAILY Qty: 90 3RF albuterol sulfate [Ventolin HFA] 90 mcg/actuation HFA aerosol inhaler 2 puff PO Q6H PRN (Reason: shortness of breath or wheezing) Qty: 8.5 1RF Rx Instructions: substitute allowed cetirizine 10 mg capsule 10 mg PO BEDTIME PRN (Reason: Allergy Symptoms) Qty: 90 3RF cholecalciferol (vitamin D3) 50 mcg (2,000 unit) capsule 50 mcg PO DAILY Qty: 30 2RF budesonide-formoterol [Symbicort] 80-4.5 mcg/actuation HFA aerosol inhaler 2 puff inhalation Q12H 30 Days Qty: 10.2 2RF omeprazole 20 mg capsule,delayed release(DR/EC) 20 mg PO DAILY Qty: 90 1RF Hold Instructions: Doctor's Order memantine [Namenda] 5 mg tablet 5 mg PO BID 90 Days Qty: 180 2RF simvastatin 20 mg tablet 20 mg PO BEDTIME 90 Days Qty: 90 2RF (DME) blood pressure monitor [Blood Pressure Kit] Kit See Rx Instructions .ROUTE .MEDSUPPLY Qty: 1 0RF Rx Instructions: As directed ferrous gluconate [Ferate] 240 mg (27 mg iron) tablet 240 mg PO DAILY diphenoxylate-atropine 2.5-0.025 mg tablet 1 tab PO BID fluticasone propionate [Flonase Allergy Relief] 50 mcg/actuation spray,suspension 2 spray intranasal DAILY PRN Rx Instructions: administer into each nostril levetiracetam 250 mg tablet 500 mg PO BID
[2023-06-21 22:22] LABS: Troponin-I High Sensitivity < 2.7 ng/L (<3.5-17.0)
[2023-06-21 22:34] VITALS: BP 188/68; PULSE 76; RESP 16; TEMP 36.5; O2SAT 94
[2023-06-21 23:07] LABS: Appearance Urine Cloudy; Color Urine Yellow; Glucose Urine UA Negative (Negative); Leukocyte Esterase Urine Large (3+) (Negative); Nitrite Urine Negative (Negative); PH 5.5 (5.0-9.0); UMIC TRIGGER UACC YES; Urine Blood Trace (Negative); Urine Ketones Negative (Negative); Urine Protein 30 (1+) mg/dL (Neg-Trace)
[2023-06-21 23:19] LABS: Bacteria Urine Trace (None Seen); Hyaline Casts Urine 0-2 /LPF (0-2); RBC Urine 0-2 /HPF (0-2); UACC Culture Trigger YES; WBC Urine 21-50 /HPF (0-5)
[2023-06-22 00:12] VITALS: BP 203/71; PULSE 62
[2023-06-22 00:13] VITALS: BP 174/81; BP 192/73; PULSE 61; PULSE 69
[2023-06-22 00:58] VITALS: BP 174/81; PULSE 69; RESP 14; TEMP 36.5; O2SAT 94
== END 2023-06-22 01:02 | disposition home or self-care (01) ==
PROVIDERS: Emergency Provider Emergency Medicine; PCP Internal Medicine
DX: R20.2 Paresthesia of skin (principal); I95.1 Orthostatic hypotension; R42 Dizziness and giddiness; R82.90 Unspecified abnormal findings in urine
CPT/HCPCS: 36415; 70450; 80053; 81001; 84484; 85025; 87086; 93005; 99283; 99285

== ENCOUNTER → 2023-06-21 21:50 | Outpatient (BNV) | payer MEDICARE, SELFPAY | PROVIDERS: Emergency Provider Emergency Medicine; PCP Internal Medicine; Visit Provider Internal Medicine Cardiovascular Disease | DX: R42 Dizziness and giddiness (principal) | CPT/HCPCS: 93010 ==

== ENCOUNTER 2023-07-31 14:50 | Inpatient (IN) | payer MEDICARE, SELFPAY ==
[2023-07-31] VITALS (10 sets, daily range): BP systolic 126–199; BP diastolic 47–122; PULSE 69–86; RESP 16–20; TEMP 36.5–38.6; O2SAT 91–100; BMI 22.6
--- NOTE | ~2023-07-31 | XR_ITS ---
EXAMINATION: XR CHEST CLINICAL INFORMATION: Weakness. Covid positive. COMPARISON: Chest radiograph dated 09/17/2021. TECHNIQUE: Frontal view of the chest was obtained. FINDINGS: Heart size is normal. There is calcific atherosclerotic disease of the aorta. There is no consolidation within either lung. No pleural effusion or pneumothorax. No acute osseous abnormality. There is unchanged cortical irregularity along the lateral aspect of the right proximal humerus. XR/XR chest 1V IMPRESSION: Stable appearance of the heart and lungs. No active disease.
--- NOTE | ~2023-07-31 | CT_ITS ---
EXAMINATION: CT HEAD WITHOUT CONTRAST CLINICAL INFORMATION: Change in mental status. COMPARISON: CT head dated 06/21/2023. TECHNIQUE: Contiguous axial imaging was performed from the skull base to vertex without intravenous administration of contrast. This CT examination was performed using dose optimization techniques as appropriate, variously including the following: *Automated exposure control *Adjustment of mA and/or kV according to patient size (this includes techniques or standardized protocols for targeted exams where dose is matched to indication/reason for exam; i.e. extremities or head) *Use of iterative reconstruction technique DLP: 617 mGy-cm FINDINGS: There is no acute intracranial hemorrhage. No evidence of acute/subacute cerebral or cerebellar infarction. No midline shift or mass effect. No extra-axial fluid collection. There is extensive microvascular ischemic change. There is an enlarged perivascular space within the right basal ganglia. No hydrocephalus. The orbits are symmetric and within normal limits. The ocular lenses are surgically absent. The calvarium is intact. Mastoid air cells are well aerated. There is mild scattered paranasal sinus mucosal disease. CT/CT head/brain wo IV con IMPRESSION: No acute intracranial pathology. Extensive microvascular ischemic change.
--- NOTE | 2023-07-31 15:10 | ECG_ITS ---
Test Reason : AMS Blood Pressure : / mmHG Vent. Rate : 071 BPM Atrial Rate : 071 BPM P-R Int : 162 ms QRS Dur : 080 ms QT Int : 384 ms P-R-T Axes : 076 062 082 degrees QTc Int : 417 ms Sinus rhythm with Premature atrial complexes Nonspecific T wave abnormality Abnormal ECG When compared with ECG of 21-JUN-2023 22:33, Premature atrial complexes are now Present Referred By: Kelsie Deleon Electronically Signed By:ALAN PATTON MD
--- NOTE | 2023-07-31 15:13 | ED.AMS ---
HPI - Altered Mental Status General Chief Complaint: Altered Mental Status Stated Complaint: CONFUSION THIS AM PER EMS Time Seen by Provider: 07/31/23 15:02 Source: patient, EMS and old records reviewed Mode of arrival: EMS Limitations: altered mental status History of Present Illness HPI narrative: 78 yo female with PMH of COPD on 2L home O2, HTN, hypothyroidism, IBS, GERD, seizure disorder on keppra, HTN, states she is vaccinated against COVID not sure how many notes 2 days of symptoms with nausea, weakness, poor PO intake and cough. Not on paxlovid unsure if she took her meds today. EMS noted family called due to increased confusion. Patient states unsure if she had a seizure but possible spent all day in bed. EMS reports she was postictal on arrival and cleared throughout the ride. MD complaint: confusion Onset (ago): day(s) (1) Severity: moderate Consistency of symptoms: waxing and waning Context: recent fever Associated symptoms: cough, chills, loss of appetite, nausea/vomiting and weakness Related Data Home Medications ?Medication ?Instructions ?Recorded ?Confirmed ferrous gluconate 240 mg (27 mg 240 mg PO DAILY 09/05/21 04/22/22 iron) tablet (Ferate) diphenoxylate-atropine 2.5 1 tab PO BID 10/09/21 04/22/22 mg-0.025 mg tablet fluticasone propionate 50 2 spray intranasal DAILY PRN 08/26/22 mcg/actuation nasal spray,suspension (Flonase Allergy Relief) levetiracetam 250 mg tablet 500 mg PO BID 08/26/22 memantine 5 mg tablet 5 mg PO BID 07/31/23 Previous Rx's ?Medication ?Instructions ?Recorded blood pressure monitor (Blood #1 ea 05/06/22 Pressure Kit) sertraline 50 mg tablet 50 mg PO DAILY #90 tabs 06/19/22 Advair Diskus 250 mcg-50 mcg/dose 1 inh inhalation BID copd 30 days 08/28/22 powder for inhalation (fluticasone #60 ea propion-salmeterol) albuterol sulfate 90 mcg/actuation 2 puff PO Q6H PRN shortness of 10/02/22 aerosol inhaler (Ventolin HFA) breath or wheezing #8.5 grams amlodipine 10 mg tablet 10 mg PO DAILY #90 tabs 10/02/22 budesonide-formoterol HFA 80 2 puff inhalation Q12H 30 days 10/02/22 mcg-4.5 mcg/actuation aerosol #10.2 grams inhaler (Symbicort) cetirizine 10 mg capsule 10 mg PO BEDTIME PRN Allergy 10/02/22 Symptoms #90 caps cholecalciferol (vitamin D3) 50 50 mcg PO DAILY #30 caps 10/02/22 mcg (2,000 unit) capsule omeprazole 20 mg capsule,delayed 20 mg PO DAILY #90 caps 04/02/23 release simvastatin 20 mg tablet 20 mg PO BEDTIME 90 days #90 tabs 06/03/23 levothyroxine 112 mcg tablet 112 mcg PO DAILY 90 days #90 tabs 07/28/23 Allergies Allergy/AdvReac Type Severity Reaction Status Date / Time amoxicillin [AMOXICILLIN] Allergy Intermediate STOMACH Verified 07/31/23 15:04 ISSUES pollen extracts [POLLEN] Allergy Mild RUNNY Verified 07/31/23 15:04 NOSE, SNEEZING, ITCHY EYES Review of Systems Review of Systems: Constitutional : pos Fever, pos Chills, pos Fatigue ENT/Mouth : No sore throat, No Rhinorrhea Eyes: No Eye Pain, No Swelling, No Redness Cardiovascular : No Chest Pain, No SOB, No Dyspnea on Exertion Respiratory : pos Cough, No Sputum Gastrointestinal : pos Nausea, No Vomiting, No Diarrhea, No abdominal Pain Genitourinary : No Dysuria, No Urinary Frequency, No Hematuria, Musculoskeletal : No joint pain, pos Myalgias, No Joint Swelling Skin : No Skin Lesions, No rash Neuro : pos Weakness, No Numbness, No Dizziness, no Headache Psych : No Anxiety/Panic, No Depression Heme/Lymph: No Bruising, No Bleeding,No Lymphadenopathy Endocrine : No Polyuria, No Polydipsia All other systems reviewed and are negative PMFSH Past Medical History Attestation statement: The following information was validated with the patient. Source: old records reviewed Medical History Nocturnal hypoxemia Acute rhinosinusitis Microscopic hematuria Renal cyst Osteoarthritis, knee COPD (chronic obstructive pulmonary disease) Acute and chronic respiratory failure with hypoxia COPD exacerbation LFT elevation Shortness of breath Rash Bilateral knee pain Hematuria Frequent falls Left-sided back pain Seizure disorder Allergic rhinitis Generalized abdominal pain Anemia Initial Medicare annual wellness visit Screening for osteoporosis Hypoxemia Anemia Syncope Nausea Chronic diarrhea Diarrhea Bile salt-induced diarrhea Cutaneous lupus erythematosus Osteoarthritis Hypertension Vitamin D deficiency COPD (chronic obstructive pulmonary disease) Ford's esophagus GERD (gastroesophageal reflux disease) Hypothyroid Surgical History History of cataract surgery History of rectal surgery History of ear surgery History of cholecystectomy History of eye surgery Family History Family History Father Lymphoma Lung cancer Mother Hypertension Diabetes Sister Brain cancer Social History Social History Household Members: Family Household Members Other:: son, his and their 2 kids Housing: House Do you presently have visiting nurse or other home services: No Alcohol intake: former Patient Tobacco Use Status: Former Tobacco user Smoked in Last 30 Days: No e-Cigarette/Vaping Use: Never Used Second Hand Smoke Exposure: No Use of substances other than those prescribed or required for medical reasons: No Advance Directives: No Advance Directives Information Provided: No Do you have a plan to hurt others: No Plan service: No Current occupational status: retired Cognitive needs: No Hearing needs: Yes (hearing aide) Vision needs: Yes (Glasses) Physical Exam ED Vital Signs: Vital Signs - 24 hr 07/31/23 14:59 07/31/23 15:01 07/31/23 15:32 Temperature 98.9 F 101.5 F H Pulse Rate 76 79 79 Respiratory Rate 18 19 19 Blood Pressure 199/122 H 184/84 H Pulse Oximetry 100 91 L Oxygen Delivery Method Nasal Cannula Nasal Cannula Oxygen Flow Rate 3 07/31/23 17:16 07/31/23 17:30 Temperature 98.4 F Pulse Rate 86 83 Respiratory Rate 16 16 Blood Pressure 144/60 H 133/65 Pulse Oximetry 95 94 Oxygen Delivery Method Nasal Cannula Oxygen Flow Rate 2 BMI result Body Mass Index 22.6 Appearance: Alert. Oriented X3. No acute distress. Eyes: Pupils equal, round and reactive to light. ENT: Pharynx normal. Neck: Normal inspection. Neck supple. CVS: Normal heart rate and rhythm. Pulses normal. Respiratory: No respiratory distress. Breath sounds normal. Abdomen: Soft and nontender. Skin: Skin warm and dry. Normal skin color. Normal skin turgor. Extremities: No lower extremity edema. No calf ttp Neuro: Oriented X 3. No motor deficit. No sensory deficit. Medications Administered Discontinued Medications Generic Name Dose Route Start Last Admin Trade Name Chadd PRN Reason Stop Dose Admin Acetaminophen 650 mg 07/31/23 15:14 07/31/23 15:41 Acetaminophen Oral Liquid 650 Mg/20.3 Ml Solution PO 07/31/23 15:15 650 mg ONCE ONE Administration Albuterol Sulfate 2.5 mg/ 0 mg 07/31/23 15:27 07/31/23 17:21 Albuterol/Ipratropium 3 ml INHALE 07/31/23 15:28 5 dose ONCE ONE Administration Dexamethasone Sodium Phosphate 6 mg 07/31/23 15:14 07/31/23 15:34 Dexamethasone Sod Phosphate 4 Mg/Ml Vial IVPUSH 07/31/23 15:15 6 mg ONCE ONE Administration Sodium Chloride 500 mls @ 500 mls/hr 07/31/23 15:09 07/31/23 16:41 Ns IV 07/31/23 16:08 Infused .Q1H ONE Infusion Azithromycin 500 mg/ Sodium 250 mls @ 125 mls/hr 07/31/23 15:14 07/31/23 16:36 Chloride IV 07/31/23 17:13 125 mls/hr ONCE ONE Administration Levetiracetam 500 mg in 100 mls @ 400 mls/hr 07/31/23 15:23 07/31/23 16:15 Keppra IV 07/31/23 15:37 Infused ONCE ONE Infusion Medical Decision Making Medical Decision Making [facility] Narrative: 78 yo female with PMH of COPD on 2L home O2, HTN, hypothyroidism, IBS, GERD, seizure disorder on keppra, HTN, here with fevers, confusion suspect possible seizure at home, improving and clearing on arrival just tested positive for COVID - COPD and O2 dependent at this time tylenol, IV dexamethasone, IV azithromycin, IV keppra as she is not sure she took her AED today, CXR and CT head for pneumonia/ICH. Admit for monitoring overnight Differential Diagnosis Differential Diagnoses: The differential diagnosis associated with the presentation includes COPD exacerbation COVID encephalopathy fever postictal from seizure Admission/Observation Consideration of admission/observation: Escalation of care including admission/observation considered will need overnight monitoring Consult Healthcare Provider Management of the patient was discussed with: Hospitalist Lab Data [facility] Lab Attestation statement: I reviewed the patient's lab results. 07/31/23 15:38 07/31/23 15:38 Labs: Lab Results 07/31/23 07/31/23 07/31/23 Range/Units 15:38 15:39 18:06 WBC 8.1 (4.8-10.8) X10*3/uL RBC 5.27 (4.20-5.50) X10*6/uL Hgb 14.5 (12.0-16.0) g/dl Hct 44.2 (37.0-47.0) % MCV 83.9 (80.0-98.0) fL MCH 27.5 (27.0-33.0) pg MCHC 32.8 (31.0-35.0) g/dl RDW 13.9 (11.0-16.0) % Plt Count 197 (160-400) X10*3/uL MPV 11.1 (9.4-12.3) fL Immature Gran % (Auto) 0.4 (0.0-0.4) % Neut % (Auto) 86.8 H (45-73) % Lymph % (Auto) 7.6 L (20-40) % Kimble % (Auto) 4.8 (2-11) % Eos % (Auto) 0.2 (0-4) % Baso % (Auto) 0.2 (0-2) % Lymph # (Auto) 0.6 L (1.2-4.9) X10*3/uL Kimble # (Auto) 0.4 (0.1-1.2) X10*3/uL Eos # (Auto) 0.0 (0.0-0.4) X10*3/uL Baso # (Auto) 0.0 (0.0-0.2) X10*3/uL Abs Immat Gran (auto) 0.03 (0.00-0.03) X10*3/uL Absolute Neuts (auto) 7.0 (2.0-8.3) x10*3/uL Absolute Nucleated RBC 0.000 (0.0-0.012) X10*3/uL Nucleated RBC % (auto) 0.0 (0.0-0.2) /100WBC PT 13.0 (11.1-13.3) SEC INR 1.1 (0.9-1.1) VBG pH 7.38 (7.32-7.43) VBG pCO2 37 mmHg VBG pO2 68 mmHg VBG HCO3 22 (22-26) mmol/L VBG O2 Saturation 92.0 % VBG Base Excess -1.8 mmol/L Sodium 140 (135-145) mmol/L Potassium 4.0 (3.3-5.1) mmol/L Chloride 106 (96-108) mmol/L Carbon Dioxide 27 (22-29) mmol/L Anion Gap 11 L (12-20) BUN 15 (9-16) mg/dL Creatinine 0.68 (0.5-1.4) mg/dL Estim Creat Clear Calc 50.6 Estimated GFR > 60 Random Glucose 104 (60-115) mg/dL Lactic Acid 0.8 (0.5-2.0) mmol/L Calcium 9.4 (8.4-10.2) mg/dL Magnesium 1.6 (1.6-2.6) mg/dL Ferritin 118 (10-250) ng/mL Total Bilirubin 0.6 (0.0-1.0) mg/dL Direct Bilirubin 0.2 (0.0-0.5) mg/dL AST 17 (5-31) U/L ALT 8 (0-31) U/L Alkaline Phosphatase 84 (39-117) U/L Lactate Dehydrogenase 184 (122-220) U/L Troponin I High Sens 8.3 D (<3.5-17.0) ng/L B-Natriuretic Peptide 149 H (<100) pg/mL Total Protein 7.6 (6.5-8.0) g/dL Albumin 3.8 (3.5-5.0) g/dL Lipase 13 (8-78) U/L TSH 0.13 L (0.32-4.0) uIU/mL Free T4 1.06 (0.71-1.85) ng/dL Influenza Type A (PCR) NEGATIVE (Negative) Influenza Type B (PCR) NEGATIVE (Negative) RSV RNA Qual (PCR) NEGATIVE (Negative) SARS-CoV-2 RNA (RT-PCR) POSITIVE A (Negative) Independent Interpretation I performed an independent interpretation of an: EKG, Plain X-Ray (no pneumonia) and CT Scan (no ICH) Interpretation: Rate: 71 Rhythm: NSR with PACs Colmar: normal Normal P waves. Normal CARINE. Normal QRS complex. ST T wave : no PHOEBE, nonspecific ST T wave changes in V5-V6, flat t waves in I and aVL qTC: 417 prior studies: no sig ischemia The study has been interpreted contemporaneously by me. . Radiology Impression Discussion of test interpretation with radiology: I have reviewed the radiologist's reading. Independent Historian Clinical information obtained from an independent historian. History obtained from or confirmed by: EMS External Record Review External record reviewed: Inpatient record Discharge Plan Discharge Clinical Impression: Acute exacerbation of chronic obstructive pulmonary disease, Encephalopathy acute, COVID-19 Fever Qualifiers: Fever type: unspecified Qualified Code(s): R50.9 - Fever, unspecified Patient Disposition: Admitted As Inpatient Print Language: Setswana
[2023-07-31] MEDS: 0.9 % Sodium Chloride 500 ML IV (15:33)
[2023-07-31] MEDS: dexAMETHasone sod phosphate 4 MG/ML VIAL 6 MG IVPUSH (15:34)
[2023-07-31] MEDS: Acetaminophen Oral Liquid 650 MG/20.3 ML SOLUTION PO (15:41)
[2023-07-31 15:46] LABS: MANUAL DIFF FLAG NO
[2023-07-31 15:48] LABS: Basophils Percent Auto 0.2 % (0-2); Eosinophils Percent Auto 0.2 % (0-4); Hematocrit 44.2 % (37.0-47.0); Hemoglobin 14.5 g/dl (12.0-16.0); Imm Gran Abs Auto 0.03 X10*3/uL (0.00-0.03); Imm Gran Pct Auto 0.4 % (0.0-0.4); Lymphocytes Absolute Auto 0.6 X10*3/uL (1.2-4.9); Lymphocytes Percent Auto 7.6 % (20-40); Mean Corpuscular HGB Conc 32.8 g/dl (31.0-35.0); Mean Corpuscular Hemoglobin 27.5 pg (27.0-33.0); Mean Corpuscular Volume 83.9 fL (80.0-98.0); Mean Platelet Volume 11.1 fL (9.4-12.3); Monocytes Absolute Auto 0.4 X10*3/uL (0.1-1.2); Monocytes Percent Auto 4.8 % (2-11); Neutrophils Percent Auto 86.8 % (45-73); Platelet Count 197 X10*3/uL (160-400); Red Blood Count 5.27 X10*6/uL (4.20-5.50); Red Cell Distribution Width 13.9 % (11.0-16.0); White Blood Count 8.1 X10*3/uL (4.8-10.8)
[2023-07-31] MEDS: levETIRAcetam in NaCl (iso-os) 500 MG/100 ML PIGGYBACK 400 MG IV (15:49)
[2023-07-31 15:55] LABS: INTERNATIONAL NORM RATIO 1.1 (0.9-1.1)
--- NOTE | 2023-07-31 15:57 | PC.NURSE ---
Unable to get second set of blood cultures, abx scanned, not started on iv pump but unable to undo saved scanned action so abx paused in JUN. will resume abx once second set of cultures is drawn.
[2023-07-31 16:04] LABS: Lactic Acid 0.8 mmol/L (0.5-2.0)
[2023-07-31 16:07] LABS: Alanine Aminotransferase 8 U/L (0-31); Albumin Level 3.8 g/dL (3.5-5.0); Alkaline Phosphatase 84 U/L (39-117); Anion Gap 11 (12-20); Aspartate Amino Transferase 17 U/L (5-31); Bilirubin Direct 0.2 mg/dL (0.0-0.5); Bilirubin Total 0.6 mg/dL (0.0-1.0); Blood Urea Nitrogen 15 mg/dL (9-16); Calcium 9.4 mg/dL (8.4-10.2); Carbon Dioxide 27 mmol/L (22-29); Chloride 106 mmol/L (96-108); Creatinine Clr Calc Pharmacy 50.6; Estimated Glomerular Filt Rate > 60; Glucose Random 104 mg/dL (60-115); Lactate Dehydrogenase 184 U/L (122-220); Lipase 13 U/L (8-78); Magnesium 1.6 mg/dL (1.6-2.6); Sodium 140 mmol/L (135-145); Total Protein 7.6 g/dL (6.5-8.0)
[2023-07-31 16:14] LABS: B Type Natriuretic Peptide 149 pg/mL (<100); Troponin-I High Sensitivity 8.3 ng/L (<3.5-17.0)
[2023-07-31 16:27] LABS: Influenza A PCR NEGATIVE (Negative); Influenza B PCR NEGATIVE (Negative); Resp Syncy Virus RNA Qual PCR NEGATIVE (Negative); SARS COV2 PCR INHOUSE POSITIVE (Negative)
[2023-07-31 16:29] LABS: Ferritin 118 ng/mL (10-250); TSH reflex Free T4 0.13 uIU/mL (0.32-4.0)
[2023-07-31] MEDS: Azithromycin 500 MG in 0.9 % Sodium Chloride 250 ML 125 MG IV (16:36)
--- NOTE | 2023-07-31 16:36 | PC.NURSE ---
Abx started on pump and resumed in jun after 2nd set of cultures obtained.
[2023-07-31 17:02] LABS: Free T4 (Free Thyroxine) 1.06 ng/dL (0.71-1.85)
[2023-07-31] MEDS: Albuterol Sulfate 2.5 MG, Albuterol/Iprat 2.5/0.5MG 3 ML 3 ML INHALE (17:21)
--- NOTE | 2023-07-31 17:32 | PC.NURSE ---
Spoke to technology sales specialist Tasneem about charting question regarding abx adminstration. Charting adjusted to reflect correct and accurate time abx was administered.
[2023-07-31 18:22] LABS: VBG Base Excess -1.8 mmol/L; VBG HCO3 22 mmol/L (22-26); VBG pCO2 37 mmHg; VBG pH 7.38 (7.32-7.43); VBG pO2 68 mmHg
[2023-07-31 18:31] LABS: Venous Blood Gas Refer to POC result
--- NOTE | 2023-07-31 19:11 | PM.IMHP ---
History of Present Illness Date of Service: 07/31/23 Attending physician on admission: Dee Zhou Chief Complaint: AMS, generalized weakness Pt is a 78-year-old female with a PMH significant for HTN, COPD on 2 L home O2 prn, seizure disorder,?IBS, and GERD who presents to the ED for evaluation of generalized weakness and altered mental status. Symptoms began yesterday when patient began to feel ill with fatigue and nonproductive cough. Patient lives with son and [id number] who both recently tested positive for COVID. Today patient was too weak to stand or walk and spent the whole day in bed. Family note patient appeared altered and confused. Patient has history of seizure disorder, and is unsure whether or not she had seizure earlier today. Reports began experiencing seizure activity sometime last year during the fall. States seizures were precipitated by significant straining while having a bowel movement. Last known seizure was at the beginning of this year, though the patient uncertain exactly when this occurred. At hand off in the ED EMS noted patient was postictal when they arrived which eventually cleared during the drive to the hospital. Patient denies SOB/REECE. No fever, chills, nausea, vomiting, abdominal pain. No chest pain/pressure, palpitations. In the ED pt was febrile up to 101.5, hypertensive up to 199/122, and satting at 91% on 3 L NC. Labs were significant for testing positive for COVID otherwise grossly unremarkable and at baseline for patient. No leukocytosis. Stable H&H. No significant electrolyte abnormalities. Renal and hepatic function WNL. Lactic acid WNL at 0.8. CXR showed stable appearance of heart and lungs with no active disease. CT?of head showed no acute intracranial pathology, though showed extensive microvascular ischemic change. EKG demonstrated sinus rhythm with PACs and no evidence of significant ST elevations or depressions. Pt was treated with IVF, dexamethasone, acetaminophen, Keppra, azithromycin, and DuoNebs. Pt will be admitted to the hospital for treatment and further evaluation of acute metabolic encephalopathy and acute hypoxic respiratory failure in the setting of COVID infection. Review of Systems Review of Systems: Generalized weakness, fatigue Inability to stand or ambulate Nonproductive cough Denies SOB/REECE No chest pain/pressure, palpitations Denies fever, chills, nausea, vomiting, abdominal pain PMFSH Medical History Nocturnal hypoxemia Acute rhinosinusitis Microscopic hematuria Renal cyst Osteoarthritis, knee COPD (chronic obstructive pulmonary disease) Acute and chronic respiratory failure with hypoxia COPD exacerbation LFT elevation Shortness of breath Rash Bilateral knee pain Hematuria Frequent falls Left-sided back pain Seizure disorder Allergic rhinitis Generalized abdominal pain Anemia Initial Medicare annual wellness visit Screening for osteoporosis Hypoxemia Anemia Syncope Nausea Chronic diarrhea Diarrhea Bile salt-induced diarrhea Cutaneous lupus erythematosus Osteoarthritis Hypertension Vitamin D deficiency COPD (chronic obstructive pulmonary disease) Ford's esophagus GERD (gastroesophageal reflux disease) Hypothyroid Family History Father Lymphoma Lung cancer Mother Hypertension Diabetes Sister Brain cancer Surgical History History of cataract surgery History of rectal surgery History of ear surgery History of cholecystectomy History of eye surgery Social History Household Members: Family Household Members Other:: son, his and their 2 kids Housing: House Do you presently have visiting nurse or other home services: No Alcohol intake: former Patient Tobacco Use Status: Former Tobacco user Smoked in Last 30 Days: No e-Cigarette/Vaping Use: Never Used Second Hand Smoke Exposure: No Use of substances other than those prescribed or required for medical reasons: No Advance Directives: No Advance Directives Information Provided: No Do you have a plan to hurt others: No Plan Nutrition Risks: No Nutritional Risk service: No Current occupational status: retired Cognitive needs: No Hearing needs: Yes (hearing aide) Vision needs: Yes (Glasses) Meds Allergies Allergy/AdvReac Type Severity Reaction Status Date / Time amoxicillin [AMOXICILLIN] Allergy Intermediate STOMACH Verified 07/31/23 15:04 ISSUES pollen extracts [POLLEN] Allergy Mild RUNNY Verified 07/31/23 15:04 NOSE, SNEEZING, ITCHY EYES Home Medications ?Medication ?Instructions ?Recorded ?Confirmed ?Last Taken ?Type ferrous gluconate 240 mg (27 mg 240 mg PO DAILY 09/05/21 07/31/23 07/31/23 History iron) tablet (Ferate) diphenoxylate-atropine 2.5 1 tab PO BID 10/09/21 07/31/23 07/31/23 History mg-0.025 mg tablet fluticasone propionate 50 2 spray intranasal DAILY PRN 08/26/22 07/31/23 Unknown History mcg/actuation nasal Congestion spray,suspension (Flonase Allergy Relief) cetirizine 10 mg capsule 10 mg PO BEDTIME Allergy Symptoms 07/31/23 07/31/23 07/30/23 History docusate sodium 100 mg tablet 100 mg PO DAILY 07/31/23 07/31/23 07/31/23 History levetiracetam 500 mg tablet 500 mg PO BID 07/31/23 07/31/23 07/31/23 History memantine 5 mg tablet 5 mg PO BID 07/31/23 07/31/23 07/31/23 History Physical Exam Vital Signs and Narrative: Vital Signs: Last Vital Signs Temp 98.4 F 07/31/23 17:16 Pulse 83 07/31/23 17:30 Resp 16 07/31/23 17:30 BP 133/65 07/31/23 17:30 Pulse Ox 94 07/31/23 17:30 O2 Del Method Nasal Cannula 07/31/23 17:30 O2 Flow Rate 2 07/31/23 17:30 Oxygen Flow Rate 3 07/31/23 15:01 BMI result Body Mass Index 22.6 Constitutional: Alert, in no acute distress. Mental Status: Oriented to person, place and time. Eyes: Pupils are equal, round, and reactive to light. Ear, Nose, and Throat: Oropharynx clear, mucous membranes moist. Ears and nose without deformities. Trachea midline. Respiratory: Clear to auscultation bilaterally. No wheezing, rales, or rhonchi. Cardiovascular: S1, S2 regular. No murmurs, rubs, or gallops. Gastrointestinal: Abdomen soft, non-tender, non-distended. Normal bowel sounds. Neurologic: Cranial nerves II-XII are grossly intact bilaterally. No focal neurological deficits. Moves all extremities spontaneously. Skin: Warm, dry. Extremities: No edema. Psychiatric: Normal mood and affect. Results Labs 07/31/23 15:38 07/31/23 15:38 Labs: Laboratory Results - last 24 hr 07/31/23 07/31/23 07/31/23 15:38 15:39 18:06 MCV 83.9 MCH 27.5 MCHC 32.8 RDW 13.9 Plt Count 197 MPV 11.1 Immature Gran % (Auto) 0.4 Neut % (Auto) 86.8 H Lymph % (Auto) 7.6 L Petroleum % (Auto) 4.8 Eos % (Auto) 0.2 Baso % (Auto) 0.2 Lymph # (Auto) 0.6 L Petroleum # (Auto) 0.4 Eos # (Auto) 0.0 Baso # (Auto) 0.0 Abs Immat Gran (auto) 0.03 Absolute Neuts (auto) 7.0 Absolute Nucleated RBC 0.000 Nucleated RBC % (auto) 0.0 PT 13.0 INR 1.1 VBG pH 7.38 VBG pCO2 37 VBG pO2 68 VBG HCO3 22 VBG O2 Saturation 92.0 VBG Base Excess -1.8 Anion Gap 11 L Estim Creat Clear Calc 50.6 Estimated GFR > 60 Random Glucose 104 Lactic Acid 0.8 Calcium 9.4 Magnesium 1.6 Ferritin 118 Total Bilirubin 0.6 Direct Bilirubin 0.2 AST 17 ALT 8 Alkaline Phosphatase 84 Lactate Dehydrogenase 184 Troponin I High Sens 8.3 D B-Natriuretic Peptide 149 H Total Protein 7.6 Albumin 3.8 Lipase 13 TSH 0.13 L Free T4 1.06 Influenza Type A (PCR) NEGATIVE Influenza Type B (PCR) NEGATIVE RSV RNA Qual (PCR) NEGATIVE SARS-CoV-2 RNA (RT-PCR) POSITIVE A Imaging Radiologist's Impressions: Impressions Chest X-Ray 07/31/23 15:22 IMPRESSION: Stable appearance of the heart and lungs. No active disease. Head CT 07/31/23 17:48 IMPRESSION: No acute intracranial pathology. Extensive microvascular ischemic change. Assessment and Plan (1) Encephalopathy acute: Status: Acute (2) COVID-19: Status: Acute Plan Pt is a 78-year-old female with a PMH significant for HTN, COPD on 2 L home O2 prn, seizure disorder,?IBS, and GERD who presents to the ED for evaluation of generalized weakness and altered mental status. Pt will be admitted to the hospital for treatment and further evaluation of acute metabolic encephalopathy and acute hypoxic respiratory failure in the setting of COVID infection. Acute hypoxic respiratory failure in the setting of COVID infection Patient desatting as low as 91% on 3 L NC Will treat with dexamethasone, DuoNebs p.r.n., benzonatate Will empirically cover with azithromycin, started 07/31/2023 ID consult for Remdesivir recommendations Titrate supplemental oxygen >92, wean as tolerated Acute encephalopathy Unclear etiology: COVID versus postictal Monitor mentation Seizure disorder Unclear if patient had seizure earlier today Patient loaded with Keppra in the ED Continue home Keppra Seizure precautions Generalized weakness PT consult Chronic diarrhea Continue Lomotil COPD Not in acute exacerbation Continue home inhalers HTN Continue amlodipine Hypothyroidism Continue levothyroxine GERD PPI HLD Statin Mood disorder Continue sertraline, memantine Full Code Attending:?Dr. Holland DVT Prophylaxis: Lovenox Pt will require a hospitalization of at least two nights for treatment of acute encephalopathy and acute hypoxic respiratory failure in the setting COVID infection. Patient will require hospitalization?for administration IV steroids, supplemental oxygen, and close monitoring of respiratory status and mentation. Quality Stroke Does the patient have a stroke diagnosis?: No VTE Prior VTE?: No VTE Risk Level:: Medical - moderate - high VTE Device Contraindication: Treatment Not Indicated VTE Drug Contraindication: N/A - Med Ordered
--- NOTE | 2023-07-31 19:20 | PHA.MEDREC ---
Pharmacy Consult ? Medication Reconciliation Pharmacy has completed the medication reconciliation. Patient's daughter confirmed all medicaitons. She reported patient does not use maintenance inhalers. Yoly Cabrera, PharmD
--- NOTE | 2023-07-31 20:21 | MHC.EDTECH ---
This tech took over care of patient at 1900,hourly rounds and vitals completed,patient was incont.of a small amount of stool,renaldo-care given and bed linen changed. Pure-Wick placed to keep patient clean and dry,patient tolerated well. Belongings list completed and copy placed in chart.call rojas in reach
--- NOTE | 2023-07-31 20:30 | MHC.EDTECH ---
Patient given a tuna sandwich,jello,and a can of david pho[place].
--- NOTE | 2023-07-31 20:54 | MHC.EDTECH ---
Seizure pads placed on side rails for precaution
[2023-07-31] MEDS: Memantine HCl 5 MG TABLET PO (21:23)
[2023-07-31] MEDS: Atorvastatin Calcium 10 MG TABLET PO (21:23)
[2023-07-31] MEDS: Benzonatate 100 MG CAPSULE PO (21:24)
[2023-07-31] MEDS: levETIRAcetam 500 MG TABLET PO (21:24)
[2023-07-31] MEDS: Loratadine 10 MG TABLET PO (21:24)
[2023-07-31] MEDS: Diphenoxylate/Atrop 2.5/0.025 TABLET 1 TAB PO (21:24)
[2023-07-31] MEDS: Enoxaparin Sodium 40 MG/0.4 ML SYRINGE SUBCUT (21:24)
[2023-07-31] MEDS: Melatonin 3 MG TABLET 6 MG PO (21:24)
--- NOTE | 2023-07-31 21:29 | PC.NURSE ---
Patient given PM meds per jun, resting quietly on stretcher at this time awaiting bed assignment, seizure precautions in place.
--- NOTE | 2023-07-31 22:06 | MHC.EDTECH ---
Patient was incot. of a large amount of liquid dark green stool,patient was cleaned and renaldo-care given. Stool sample obtained and sent to lab.
--- NOTE | 2023-08-01 00:09 | MHC.EDTECH ---
Patient was incot.of a large amount of urine,and liquid dark green stool,patient was cleaned and renaldo-care given,bed linen changed.
[2023-08-01 02:32] VITALS: BMI 22.6
[2023-08-01 02:36] VITALS: BP 146/72; PULSE 56; RESP 20; TEMP 36.9; O2SAT 96
[2023-08-01 03:17] LABS: CDiff Gene PCR NEGATIVE (Negative)
[2023-08-01 04:00] VITALS: BP 151/80; PULSE 58; RESP 20; TEMP 36.4; O2SAT 96
[2023-08-01] MEDS: Omeprazole 20 MG CAPSULE.DR PO (05:46)
[2023-08-01] MEDS: Levothyroxine Sodium 112 MCG TABLET PO (05:46)
[2023-08-01 08:00] VITALS: BP 154/66; PULSE 62; RESP 20; TEMP 36.7; O2SAT 97
[2023-08-01 08:22] LABS: Procalcitonin 0.06 ng/mL
[2023-08-01 08:48] VITALS: BP 158/69; PULSE 59; O2SAT 98
--- NOTE | 2023-08-01 09:16 | MHC.CM.PN ---
IMM 07/31. Pt with AMS, encephalopathy due to Covid-19 infection. CM intake assessment completed with pts son/HCP Alexander. Pt lives at home with her son Alexander and [id number]. Pts son Alexander will transport her home at D/C. Pt self-care, uses a cane, and has home O2 though [employer]. HCP on file and verified. PCP: Dr. Lynn Po
[2023-08-01 10:03] LABS: Adenovirus F 40/41 Not Detected (Not Detect.); Astrovirus Not Detected (Not Detect.); Campylobacter Not Detected (Not Detect.); Cryptosporidium Not Detected (Not Detect.); Cyclospora cayetanensis Not Detected (Not Detect.); E. coli EAEC Not Detected (Not Detect.); E. coli EPEC Not Detected (Not Detect.); E. coli ETEC Not Detected (Not Detect.); E. coli STEC Not Detected (Not Detect.); Entamoeba histolytica Not Detected (Not Detect.); Giardia lamblia Not Detected (Not Detect.); Norovirus GI/GII Not Detected (Not Detect.); Plesiomonas shigelloides Not Detected (Not Detect.); Rotavirus A Not Detected (Not Detect.); Salmonella Not Detected (Not Detect.); Sapovirus Not Detected (Not Detect.); Shigella sp./EIEC Not Detected (Not Detect.); Vibrio Not Detected (Not Detect.); Vibrio Cholerae Not Detected (Not Detect.); Yersinia enterocolitica Not Detected (Not Detect.)
[2023-08-01] MEDS: Ferrous Sulfate 324 MG TABLET.DR PO (10:35)
[2023-08-01] MEDS: Cholecalciferol (Vitamin D3) 25 MCG TABLET 50 MCG PO (10:35)
[2023-08-01] MEDS: Docusate Sodium 100 MG CAPSULE PO (10:35)
[2023-08-01] MEDS: Memantine HCl 5 MG TABLET PO (10:35)
[2023-08-01] MEDS: amLODIPine Besylate 10 MG TABLET PO (10:35)
[2023-08-01] MEDS: Diphenoxylate/Atrop 2.5/0.025 TABLET 1 TAB PO (10:35)
[2023-08-01] MEDS: Sertraline HCL 50 MG TABLET PO (10:35)
[2023-08-01] MEDS: levETIRAcetam 500 MG TABLET PO (10:35)
[2023-08-01] MEDS: 0.9 % Sodium Chloride Flush 3 ML SYRINGE IVFLUSH (10:36)
[2023-08-01 11:23] VITALS: BP 158/69; PULSE 59; RESP 20; TEMP 36.5; O2SAT 98
[2023-08-01] MEDS: Azithromycin 500 MG in 0.9 % Sodium Chloride 250 ML 125 MG IV (11:54)
--- NOTE | 2023-08-01 12:50 | PM.DS ---
DS: Providers Provider Date of Service: 08/01/23 Date of admission: 07/31/23 20:19 Primary care physician: Unknown Physician Consults: 07/31/23 19:54 Consult to Infectious Diseases Routine Consulting Provider: [facility] [place] Infectious Disease Reason for consultation: COVID+, ?Remdesivir DS: Diagnosis Discharge Diagnosis (1) Encephalopathy acute: Status: Acute (2) COVID-19: Status: Acute DS: Summary Hospital Course Hospital Course: from initial hpi: 78-year-old female with a PMH significant for HTN, COPD on 2 L home O2 prn, seizure disorder, IBS, and GERD who presents to the ED for evaluation of generalized weakness and altered mental status. Symptoms began yesterday when patient began to feel ill with fatigue and nonproductive cough. Patient lives with son and [id number] who both recently tested positive for COVID. Today patient was too weak to stand or walk and spent the whole day in bed. Family note patient appeared altered and confused. Patient has history of seizure disorder, and is unsure whether or not she had seizure earlier today. Reports began experiencing seizure activity sometime last year during the fall. States seizures were precipitated by significant straining while having a bowel movement. Last known seizure was at the beginning of this year, though the patient uncertain exactly when this occurred. At hand off in the ED EMS noted patient was postictal when they arrived which eventually cleared during the drive to the hospital. Patient denies SOB/REECE. No fever, chills, nausea, vomiting, abdominal pain. No chest pain/pressure, palpitations. In the ED pt was febrile up to 101.5, hypertensive up to 199/122, and satting at 91% on 3 L NC. Labs were significant for testing positive for COVID otherwise grossly unremarkable and at baseline for patient. No leukocytosis. Stable H&H. No significant electrolyte abnormalities. Renal and hepatic function WNL. Lactic acid WNL at 0.8. CXR showed stable appearance of heart and lungs with no active disease. CT of head showed no acute intracranial pathology, though showed extensive microvascular ischemic change. EKG demonstrated sinus rhythm with PACs and no evidence of significant ST elevations or depressions. Pt was treated with IVF, dexamethasone, acetaminophen, Keppra, azithromycin, and DuoNebs. Pt will be admitted to the hospital for treatment and further evaluation of acute metabolic encephalopathy and acute hypoxic respiratory failure in the setting of COVID infection. hospital course: Patient was admitted for acute metabolic encephalopathy and acute on chronic hypoxic respiratory failure secondary to COVID complicated by COPD with acute decompensation. She was treated with IV Decadron. She recovered faster than expected. She is back to her baseline O2 and mental status. She will be discharged on 5 more days of prednisone. For seizure disorder she was continued on Keppra. For generalized weakness patient ambulated in room well with no shortness of breath or weakness. For hypertension was continued on amlodipine. For hypothyroidism continue on Synthroid. For GERD was continued on PPI. For hyperlipidemia is continue statin. For mood disorder was continue sertraline. Patient is feeling better will be discharged home. Time Attestation Discharge Coordination Time (in mins): 35 Quality: Safe Use of Opioids Does Pt have an Active Cancer Diagnosis on the Problem List?: No Quality: Stroke Does the patient have a stroke diagnosis?: No Physical Exam Vital Signs: Vital Signs: Last Vital Signs Temp 97.7 F 08/01/23 11:23 Pulse 59 08/01/23 11:23 Resp 20 08/01/23 11:23 BP 158/69 H 08/01/23 11:23 Pulse Ox 98 08/01/23 11:23 O2 Del Method Nasal Cannula 08/01/23 11:23 O2 Flow Rate 2 08/01/23 11:23 Oxygen Flow Rate 3 07/31/23 15:01 BMI result Body Mass Index 22.6 General: AO X 3, no acute distress Resp: CTA bilateral, no accessory muscles used CVS: S1,S2,RRR GI: soft, non tender, non distended Neuro: motor grossly intact, alert Psych: appropriate affect, appropriate insight DS: Data Data Completed and Pending Labs on day of discharge: Laboratory Results - last 24 hr 07/31/23 07/31/23 07/31/23 15:38 15:39 18:06 WBC 8.1 RBC 5.27 Hgb 14.5 Hct 44.2 MCV 83.9 MCH 27.5 MCHC 32.8 RDW 13.9 Plt Count 197 MPV 11.1 Immature Gran % (Auto) 0.4 Neut % (Auto) 86.8 H Lymph % (Auto) 7.6 L [place] % (Auto) 4.8 Eos % (Auto) 0.2 Baso % (Auto) 0.2 Lymph # (Auto) 0.6 L [place] # (Auto) 0.4 Eos # (Auto) 0.0 Baso # (Auto) 0.0 Abs Immat Gran (auto) 0.03 Absolute Neuts (auto) 7.0 Absolute Nucleated RBC 0.000 Nucleated RBC % (auto) 0.0 PT 13.0 INR 1.1 VBG pH 7.38 VBG pCO2 37 VBG pO2 68 VBG HCO3 22 VBG O2 Saturation 92.0 VBG Base Excess -1.8 Sodium 140 Potassium 4.0 Chloride 106 Carbon Dioxide 27 Anion Gap 11 L BUN 15 Creatinine 0.68 Estim Creat Clear Calc 50.6 Estimated GFR > 60 Random Glucose 104 Lactic Acid 0.8 Calcium 9.4 Magnesium 1.6 Ferritin 118 Total Bilirubin 0.6 Direct Bilirubin 0.2 AST 17 ALT 8 Alkaline Phosphatase 84 Lactate Dehydrogenase 184 Troponin I High Sens 8.3 D B-Natriuretic Peptide 149 H Total Protein 7.6 Albumin 3.8 Lipase 13 Procalcitonin TSH 0.13 L Free T4 1.06 Stl C. cayetanensis PCR Stool Rotavirus A PCR Stl Adenov F 40/41 PCR Stool Astrovirus (PCR) Stool Campylobacter PCR Stool Cryptosporidium PCR Stl Sh Tox Pr E STEC PCR Stool E coli O157 PCR Stl Enterotoxigenic E PCR Stool EPEC (PCR) Stool EAEC (PCR) Stl E. histolytica PCR Stool Giardia Lamblia PCR Stl P. shigelloides PCR Stool Salmonella PCR Stool Sapovirus (PCR) Stl Shigella/EIEC PCR St Y.enterocolitica PCR Stool Vibrio (PCR) Stl Vibrio cholerae PCR Stl Norovirus GI/GII PCR C. difficile Tox B Gene Influenza Type A (PCR) NEGATIVE Influenza Type B (PCR) NEGATIVE RSV RNA Qual (PCR) NEGATIVE SARS-CoV-2 RNA (RT-PCR) POSITIVE A 07/31/23 08/01/23 22:09 06:45 WBC RBC Hgb Hct MCV MCH MCHC RDW Plt Count MPV Immature Gran % (Auto) Neut % (Auto) Lymph % (Auto) [place] % (Auto) Eos % (Auto) Baso % (Auto) Lymph # (Auto) [place] # (Auto) Eos # (Auto) Baso # (Auto) Abs Immat Gran (auto) Absolute Neuts (auto) Absolute Nucleated RBC Nucleated RBC % (auto) PT INR VBG pH VBG pCO2 VBG pO2 VBG HCO3 VBG O2 Saturation VBG Base Excess Sodium Potassium Chloride Carbon Dioxide Anion Gap BUN Creatinine Estim Creat Clear Calc Estimated GFR Random Glucose Lactic Acid Calcium Magnesium Ferritin Total Bilirubin Direct Bilirubin AST ALT Alkaline Phosphatase Lactate Dehydrogenase Troponin I High Sens B-Natriuretic Peptide Total Protein Albumin Lipase Procalcitonin 0.06 TSH Free T4 Stl C. cayetanensis PCR Not Detected Stool Rotavirus A PCR Not Detected Stl Adenov F 40/41 PCR Not Detected Stool Astrovirus (PCR) Not Detected Stool Campylobacter PCR Not Detected Stool Cryptosporidium PCR Not Detected Stl Sh Tox Pr E STEC PCR Not Detected Stool E coli O157 PCR Not applicable Stl Enterotoxigenic E PCR Not Detected Stool EPEC (PCR) Not Detected Stool EAEC (PCR) Not Detected Stl E. histolytica PCR Not Detected Stool Giardia Lamblia PCR Not Detected Stl P. shigelloides PCR Not Detected Stool Salmonella PCR Not Detected Stool Sapovirus (PCR) Not Detected Stl Shigella/EIEC PCR Not Detected St Y.enterocolitica PCR Not Detected Stool Vibrio (PCR) Not Detected Stl Vibrio cholerae PCR Not Detected Stl Norovirus GI/GII PCR Not Detected C. difficile Tox B Gene NEGATIVE Influenza Type A (PCR) Influenza Type B (PCR) RSV RNA Qual (PCR) SARS-CoV-2 RNA (RT-PCR) Preliminary micro results at discharge 07/31/23 15:38 Blood Culture - Preliminary Blood - Venous Discharge Plan Discharge Anticipated Discharge Date/Time: 08/01/23 12:48 Patient Disposition: Home, Self-Care Discharge Diagnosis: covid, copd exacertbation Referrals: Physician,Unknown J [Primary Care Provider] - 1 Week Discharge Medications: New prednisone 20 mg tablet 40 mg PO DAILY Qty: 10 0RF Continued sertraline 50 mg tablet 50 mg PO DAILY Qty: 90 3RF amlodipine 10 mg tablet 10 mg PO DAILY Qty: 90 3RF albuterol sulfate [Ventolin HFA] 90 mcg/actuation HFA aerosol inhaler 2 puff PO Q6H PRN (Reason: shortness of breath or wheezing) Qty: 8.5 1RF Rx Instructions: substitute allowed cholecalciferol (vitamin D3) 50 mcg (2,000 unit) capsule 50 mcg PO DAILY Qty: 30 2RF omeprazole 20 mg capsule,delayed release(DR/EC) 20 mg PO DAILY Qty: 90 1RF Hold Instructions: Doctor's Order simvastatin 20 mg tablet 20 mg PO BEDTIME 90 Days Qty: 90 2RF levothyroxine 112 mcg tablet 112 mcg PO DAILY 90 Days Qty: 90 3RF memantine 5 mg tablet 5 mg PO BID levetiracetam 500 mg tablet 500 mg PO BID cetirizine 10 mg capsule 10 mg PO BEDTIME docusate sodium 100 mg Tablet 100 mg PO DAILY (DME) blood pressure monitor [Blood Pressure Kit] Kit See Rx Instructions .ROUTE .MEDSUPPLY Qty: 1 0RF Rx Instructions: As directed ferrous gluconate [Ferate] 240 mg (27 mg iron) tablet 240 mg PO DAILY diphenoxylate-atropine 2.5-0.025 mg tablet 1 tab PO BID fluticasone propionate [Flonase Allergy Relief] 50 mcg/actuation spray,suspension 2 spray intranasal DAILY PRN (Reason: Congestion) Rx Instructions: administer into each nostril Discharge Orders: Discharge Order (Routine); Ordered 08/01/23 Ordered By: Reji Rosenbaum Diet: Advance to usual diet Activity on Discharge: As tolerated Stand Alone Forms: Patient Portal Discharge page Print Language: Maltese Care Plan Goals: recovery Health Concerns: covid/copd Plan of Treatment: symptomatic management, prednisone 5 days Assessment: see above
--- NOTE | 2023-08-01 13:09 | MHC.CM.PN ---
Pt is medically cleared for D/C home self-care, pts grandson to pick her up and transport her home.
== END 2023-08-01 14:08 | disposition home or self-care (01) | DRG 177 ==
LOC: HO.ED 18:42 → HO.EDOVER 20:25 → HO.IMC 08-01 00:01
PROVIDERS: Admitting Provider Student in an Organized Health Care Education/Training Program; Emergency Provider Emergency Medicine; PCP Internal Medicine; Visit Provider Internal Medicine
DX: U07.1 COVID-19 (principal); G93.41 Metabolic encephalopathy; J96.21 Acute and chronic respiratory failure with hypoxia; K52.9 Noninfective gastroenteritis and colitis, unspecified; J44.9 Chronic obstructive pulmonary disease, unspecified; K21.9 Gastro-esophageal reflux disease without esophagitis; E78.5 Hyperlipidemia, unspecified; F39 Unspecified mood [affective] disorder; L93.2 Other local lupus erythematosus; G40.909 Epilepsy, unspecified, not intractable, without status epilepticus; E03.9 Hypothyroidism, unspecified; Z99.81 Dependence on supplemental oxygen; Z87.891 Personal history of nicotine dependence; Z79.890 Hormone replacement therapy; Z79.899 Other long term (current) drug therapy
CPT/HCPCS: 0241U; 36415; 70450; 71045; 80048; 80076; 82728; 82803; 83605; 83615; 83690; 83735; 83880; 84145; 84439; 84443; 84484; 85025; 85610; 87040; 87493; 87507; 93005; 94640; 97161; 99285; J0456; J1100; J1650; J1953

== ENCOUNTER → 2023-07-31 15:10 | Outpatient (BNV) | payer MEDICARE, SELFPAY | PROVIDERS: Emergency Provider Emergency Medicine; Visit Provider Internal Medicine Cardiovascular Disease | DX: I49.1 Atrial premature depolarization (principal); R41.82 Altered mental status, unspecified | CPT/HCPCS: 93010 ==

== ENCOUNTER → 2023-07-31 20:19 | Outpatient (BNV) | payer MEDICARE, SELFPAY | PROVIDERS: Admitting Provider Student in an Organized Health Care Education/Training Program; Emergency Provider Emergency Medicine; PCP Internal Medicine; Visit Provider Internal Medicine | DX: J96.01 Acute respiratory failure with hypoxia (principal); U07.1 COVID-19; G93.40 Encephalopathy, unspecified | CPT/HCPCS: 99223; 99239 ==

== ENCOUNTER 2023-08-18 10:09 | Outpatient (AMB) | payer MEDICARE, SELFPAY ==
[2023-08-18 10:18] VITALS: BP 124/62; PULSE 71; O2SAT 89; BMI 23.3
--- NOTE | 2023-08-18 10:18 | MHC.OFFVIS ---
Vital Signs 08/18/23 10:18 Height 5 ft 1 in Weight 123 lb 7.342 oz BMI 23.3 BP 124/62 Blood Pressure Location Lt brachial Position Sitting Pulse 71 Pulse Source Pulse Oximeter Pulse Oximetry (%) 89 L Oxygen Delivery Method Room Air Intake Visit Reasons: copd Intake Note: pt is here for follow up and states she states her breathing is okay and is using oxygen prn Fitness Services Manager Required: No Allergies amoxicillin [AMOXICILLIN] Allergy (Intermediate, Verified 08/18/23 10:35) STOMACH ISSUES pollen extracts [POLLEN] Allergy (Mild, Verified 08/18/23 10:35) RUNNY NOSE, SNEEZING, ITCHY EYES Medication List - Last Reconciled 08/18/23 by Andrew Menendez MD albuterol sulfate 90 mcg/actuation (Ventolin HFA) 2 puffs PO Q6H PRN amlodipine 10 mg PO DAILY blood pressure monitor (Blood Pressure Kit) As directed cetirizine 10 mg PO BEDTIME cholecalciferol (vitamin D3) 50 mcg PO DAILY diphenoxylate-atropine 2.5-0.025 mg 1 tab PO BID docusate sodium 100 mg PO DAILY ferrous gluconate (Ferate) 240 mg PO DAILY fluticasone propionate 50 mcg/actuation (Flonase Allergy Relief) 2 sprays intranasal DAILY PRN levetiracetam 500 mg PO BID levothyroxine 112 mcg PO DAILY 90 days memantine 5 mg PO BID omeprazole 20 mg PO DAILY sertraline 50 mg PO DAILY simvastatin 20 mg PO BEDTIME 90 days HPI HPI copd: Details: THIS 78 YEARS OLD VERY PLEASANT FEMALE IS HERE FOR 6 MONTHS FOLLOW-UP. JUST ABOUT 3 WEEKS AGO SHE WAS HOSPITALIZED OVERNIGHT, BECAUSE OF SHORTNESS OF BREATH AND MUSCLE ACHES AND PAINS. SHE TESTED POSITIVE FOR COVID-19 INFECTION. MOST OF THE SYMPTOMS RELATED TO WEAKNESS AND ACHES IN THE LEGS. .HER LUNGS WERE CLEAR BUT SHE WAS TREATED FOR ACUTE EXACERBATION OF COPD WITH A SHORT COURSE OF PREDNISONE. SINCE HER DISCHARGE HOME SHE HAS BEEN RELATIVELY STABLE AND COMFORTABLE. SHE HAS STATIONARY O2 AT HOME FOR THE LAST 4 YEARS BUT SHE HARDLY USES IT REGULARLY. SHE IS SUPPOSED TO USE 2 L/MINUTE AT NIGHT. AND P.R.N. DURING THE DAYTIME. SHE CLAIMS THAT HER BREATHING STATUS IS REMAINING VERY STABLE. [facility] Medical History Nocturnal hypoxemia Acute rhinosinusitis Microscopic hematuria Renal cyst Osteoarthritis, knee COPD (chronic obstructive pulmonary disease) Acute and chronic respiratory failure with hypoxia COPD exacerbation LFT elevation Shortness of breath Rash Bilateral knee pain Hematuria Frequent falls Left-sided back pain Seizure disorder Allergic rhinitis Generalized abdominal pain Anemia Initial Medicare annual wellness visit Screening for osteoporosis Hypoxemia Anemia Syncope Nausea Chronic diarrhea Diarrhea Bile salt-induced diarrhea Cutaneous lupus erythematosus Osteoarthritis Hypertension Vitamin D deficiency COPD (chronic obstructive pulmonary disease) Ford's esophagus GERD (gastroesophageal reflux disease) Hypothyroid Surgical History History of cataract surgery History of rectal surgery History of ear surgery History of cholecystectomy History of eye surgery Family History Father Lymphoma Lung cancer Mother Hypertension Diabetes Sister Brain cancer Social History Household Members: Family Household Members Other:: son, his and their 2 kids Housing: House Do you presently have visiting nurse or other home services: No Alcohol intake: former Patient Tobacco Use Status: Former Tobacco user e-Cigarette/Vaping Use: Never Used Second Hand Smoke Exposure: No service: No Current occupational status: retired Cognitive needs: No Hearing needs: Yes (hearing aide) Vision needs: Yes (Glasses) Review of Systems Const All systems reviewed & are unremarkable except as noted in HPI and below Eyes Reports no additional complaints ENT Reports nasal congestion (Mild off and) Card Denies chest pain, Denies irregular heart rhythm and Denies leg edema Resp Reports as per HPI GI Reports heartburn (GERD symptoms controlled with med) Reports no additional complaints Musc Reports no additional complaints Skin/Breast Reports system reviewed and no additional complaints, except as documented Neuro Reports no additional complaints Psych Reports no additional complaints Endo Reports no additional complaints Physical Exam Vital Signs: Last Vital Signs Pulse 71 08/18/23 10:18 BP 124/62 08/18/23 10:18 Pulse Ox 89 L 08/18/23 10:18 Oxygen Delivery Method Room Air 08/18/23 10:18 BMI result Body Mass Index 23.3 Const General: comfortable, no acute distress, alert and awake Orientation/consciousness: patient oriented x3 HEENT Head: Yes normal to inspection General nose exam: No nasal polyps present, No nasal discharge present and Other nasal findings present (Marked nasal congestion on both sides with hypertrophy of the turbinates ) Face and sinus: Yes sinuses nontender Mouth: oropharynx normal Throat: Yes posterior oropharynx normal Eyes General: appearance normal, both eyes and all related structures Neck Neck: Yes normal visual inspection, Yes no lymphadenopathy, Yes trachea midline and Yes no JVD Thyroid: Thyroid normal Chest Chest palpation & inspection: normal inspection of the chest, normal palpation of entire chest wall and no tenderness Resp Other: Percussion note resonant, breath sounds are slightly distant with prolonged expiratory phase. NO WHEEZES CREPITATIONS OR RHONCHI ARE HEARD TODAY. Cardio Palpation: normal PMI Rate: regular rate Rhythm: regular rhythm Heart sounds: no gallops and no murmurs GI Palpation (GI): Soft to palpation, nontender, No hepatosplenomegaly present and no masses Auscultation: normal bowel sounds Back/Spine/Pelvis Thoracic/Lumbar Spine: thoracic and lumbar spine normal to inspection Skin General skin exam: no rashes or lesions noted and other (Hands are cold, due to chronic Raynaud syndrome) Neuro General: patient oriented x3 and no focal motor deficits Cranial nerves: Yes CN's II-XII intact bilaterally Extrem General: Yes normal to inspection, Yes no clubbing, cyanosis or edema and Yes no calf tenderness Psych Appearance: grossly normal and well kempt Speech and movement: Normal speech and movement present Assessment & Plan Assessment & Plan (1) COPD (chronic obstructive pulmonary disease): Comment: Clinically she does have chronic obstructive pulmonary disease. Moderately severe and well controlled at this time. Code(s): J44.9 - Chronic obstructive pulmonary disease, unspecified Category: Medical Plan: [place] : Advair 250-50 2 puffs BID Proair 2 puffs q 6 hrs PRN She does have a spacing unit at home and she is advised to use the spacing unit for the above inhalers. (2) Nocturnal hypoxemia: Comment: She is known to have nocturnal hypoxemia and also has intermittent exercise induced hypoxemia during the daytime. Code(s): G47.34 - Idiopathic sleep related nonobstructive alveolar hypoventilation Category: Medical Plan: Advised to use O2 2 L/minute every night, And she may also use p.r.n. during the daytime, if O2 sat is noted to be below 90%. (3) Allergic rhinitis: Comment: MILD MOSTLY SEASONAL OR DUE TO DUST AND SMOKE. Code(s): J30.9 - Allergic rhinitis, unspecified Category: Medical Plan: [place] : CONTINUE FLONASE 2 SPRAY EACH NOSTRIL DAILY, AND MAY USE OTC MEDS SUCH CLARITIN 10 MG ONLY P.R.N. (4) COVID-19: Comment: She tested positive for COVID-19, however her lungs were clear. She was just treated for acute exacerbation of COPD. Does not seem to have any residual cough or wheezing at this time. Code(s): U07.1 - COVID-19 Category: Medical Plan: No further treatment needed Medications: New inhalational spacing device (POCKET CHAMBER spacer) As directed 1 ea 0RF Coding Level of Care Code Est Pt Level 3 (53769) Diagnoses COPD (chronic obstructive pulmonary disease) J44.9 Nocturnal hypoxemia G47.34 Allergic rhinitis J30.9 COVID-19 U07.1
== END 2023-08-18 10:47 | disposition home or self-care (01) ==
PROVIDERS: PCP Internal Medicine; Visit Provider Internal Medicine
DX: J44.9 Chronic obstructive pulmonary disease, unspecified (principal); G47.34 Idiopathic sleep related nonobstructive alveolar hypoventilation; J30.9 Allergic rhinitis, unspecified; U07.1 COVID-19
CPT/HCPCS: 99213

== ENCOUNTER → 2023-08-18 10:09 | Outpatient (BNVA) | payer MEDICARE, SELFPAY | PROVIDERS: PCP Internal Medicine; Visit Provider Internal Medicine | DX: J44.9 Chronic obstructive pulmonary disease, unspecified (principal); J30.9 Allergic rhinitis, unspecified; G47.34 Idiopathic sleep related nonobstructive alveolar hypoventilation; Z86.16 Personal history of COVID-19 | CPT/HCPCS: 99212 ==

== ENCOUNTER 2023-10-13 10:57 | Outpatient (AMB) | payer MEDICARE, SELFPAY ==
[2023-10-13 11:04] VITALS: BP 130/68; PULSE 67; O2SAT 92; BMI 22.7
--- NOTE | 2023-10-13 11:04 | MHC.PC.OV ---
Vital Signs 10/13/23 11:04 Height 5 ft 1 in Weight 120 lb BMI 22.7 BP 130/68 Blood Pressure Location Lt brachial Position Sitting Pulse 67 Pulse Source Pulse Oximeter Pulse Oximetry (%) 92 Oxygen Delivery Method Room Air Intake Visit Reasons: .LFT elevation, hypothyroid Allergies amoxicillin [AMOXICILLIN] Allergy (Intermediate, Verified 10/13/23 11:05) STOMACH ISSUES pollen extracts [POLLEN] Allergy (Mild, Verified 10/13/23 11:05) RUNNY NOSE, SNEEZING, ITCHY EYES Tobacco use date assessed: 04/14/23 Fall risk assessment: No Falls in past year Last assessed Fall Risk: 10/13/23 Dental Screening Dental Screen Date: 10/13/23 Did you have a dental visit in the last 12 months?: No Did you have a dental problem in the last 6 months where you did not have access to dental care?: No Was dental information given to patient?: No HPI .LFT elevation, hypothyroid HPI Details 78-year-old female with COPD cognitive impairment hypertension Barretts esophagus hypothyroidism nocturnal hypoxemia and hypercholesterolemia last seen in 04/26/2023. Review of the notes follows up with Pulmonary for the COPD continuing with Jose and Jessica. On oxygen 2 L every night. Was in the hospital in 07/2023 had generalized weakness and altered mental status noted to have hypertension at fever positive for COVID diagnosis of encephalopathy metabolic and hypoxic respiratory failure. Treated with steroids and Z-Antonino patient was treated like a seizure with Keppra. Patient was also seen in 06/25/2023 complained of pins and needle sensation throughout the scalp with orthostatic hypotension. Patient has not been using the oxygen when sleeping. Discussed with the patient the need for oxygen to be used as she has known to be having nocturnal hypoxemia. Discussed importance as this can cause seizures as seizures appear when there is loss of oxygen in the brain. Otherwise complains of having weakness on both knees discussed about arthritis discussed about keeping active knee braces does help and for her to use them. As for the blood work will be having this time and discussed to need to test the thyroid again. [facility] Medical History Nocturnal hypoxemia Acute rhinosinusitis Microscopic hematuria Renal cyst Osteoarthritis, knee COPD (chronic obstructive pulmonary disease) Acute and chronic respiratory failure with hypoxia COPD exacerbation LFT elevation Shortness of breath Rash Bilateral knee pain Hematuria Frequent falls Left-sided back pain Seizure disorder Allergic rhinitis Generalized abdominal pain Anemia Initial Medicare annual wellness visit Screening for osteoporosis Hypoxemia Anemia Syncope Nausea Chronic diarrhea Diarrhea Bile salt-induced diarrhea Cutaneous lupus erythematosus Osteoarthritis Hypertension Vitamin D deficiency COPD (chronic obstructive pulmonary disease) Ford's esophagus GERD (gastroesophageal reflux disease) Hypothyroid Surgical History History of cataract surgery History of rectal surgery History of ear surgery History of cholecystectomy History of eye surgery Family History Father Lymphoma Lung cancer Mother Hypertension Diabetes Sister Brain cancer Social History Household Members: Family Household Members Other:: son, his and their 2 kids Housing: House Do you presently have visiting nurse or other home services: No Alcohol intake: former Patient Tobacco Use Status: Former Tobacco user Tobacco use type: Cigarette e-Cigarette/Vaping Use: Never Used Second Hand Smoke Exposure: No service: No Current occupational status: retired Cognitive needs: No Hearing needs: Yes (hearing aide) Vision needs: Yes (Glasses) Questionnaire PHQ-9 Over the last 2 weeks, how often have you been bothered by any of the following problems? 1. Little interest or pleasure in doing things: not at all 2. Feeling down, depressed, or hopeless: not at all 3. Trouble falling or staying asleep, or sleeping too much: not at all 4. Feeling tired or having little energy: not at all 5. Poor appetite or overeating: not at all 6. Feeling bad about yourself - or that you are a failure or have let yourself or your family down: not at all 7. Trouble concentrating on things, such as reading the newspaper or watching television: not at all 8. Moving or speaking so slowly that other people could have noticed. Or the opposite - being so fidgety or restless that you have been moving around a lot more than usual: not at all 9. Thoughts that you would be better off or of hurting yourself in some way: not at all Total score: 0 Depression Screening Interpretation: Negative Depression Screening Done: Yes Source: Developed by Drs. Juan R Pierre, Mary Kraft, Matti Flores and colleagues, with an educational benton from [employer]. Thrive Questionnaire Date Thrive assessed: 08/01/23 AUDIT C Alcohol Use Questionnaire (AUDIT-C) 1. How often do you have a drink containing alcohol?: Never 3. How often do you have six or more drinks on one occasion?: Never Total Score: 0 ANGELES-7 AMB Questionnaire ANGELES-7 Date ANGELES - 7 assessed: 04/14/23 Source: Developed by Drs. Juan R Pierre, Mary Kraft, Matti Flores and colleagues, with an educational benton from [employer]. Physical exam (Primary Care) Vital Signs: Last Vital Signs Pulse 67 10/13/23 11:04 BP 130/68 10/13/23 11:04 Pulse Ox 92 10/13/23 11:04 Oxygen Delivery Method Room Air 10/13/23 11:04 BMI result Body Mass Index 22.7 Tobacco/Smoking Status: Tobacco use Status Tobacco use date assessed 04/14/23 10/13/23 11:05 Patient Tobacco Use Status Former Tobacco user 10/13/23 11:05 Tobacco use type Cigarette 10/13/23 11:05 e-Cigarette/Vaping Use Never Used 10/13/23 11:05 PHQ-9: PHQ-9 Score PHQ-9: Total score 0 10/13/23 11:16 Depression Screening Interpretation: Negative Thrive Assessment: Date of Thrive Assessment Date Thrive assessed 08/01/23 10/13/23 11:05 Const General: alert; No acute distress Eyes Conjunctivae: conjunctivae normal Resp Auscultation: clear to auscultation bilaterally Cardio Rate: regular rate Rhythm: regular rhythm GI Inspection: Yes normal to inspection Extrem General: Yes normal to inspection and No edema Assessment and Plan Assessment & Plan (1) COVID-19: Comment: She tested positive for COVID-19, however her lungs were clear. She was just treated for acute exacerbation of COPD. Does not seem to have any residual cough or wheezing at this time. Code(s): U07.1 - COVID-19 Plan: Patient was treated in the hospital and has followed up with Pulmonary (2) Nocturnal hypoxemia: Comment: She is known to have nocturnal hypoxemia and also has intermittent exercise induced hypoxemia during the daytime. Code(s): G47.34 - Idiopathic sleep related nonobstructive alveolar hypoventilation Plan: Discussed the importance of having oxygen at nighttime (3) Hypothyroid: Code(s): E03.9 - Hypothyroidism, unspecified Qualifiers: Hypothyroidism type: acquired Qualified Code(s): E03.9 - Hypothyroidism, unspecified Plan: Patient needs a retest of blood work (4) Ford's esophagus: Code(s): K22.70 - Ford's esophagus without dysplasia Qualifiers: Ford's esophagus type: with low grade dysplasia Qualified Code(s): K22.710 - Ford's esophagus with low grade dysplasia Plan: Avoid the foods that causes that usually spicy foods, tomato products, juices, coffee, soda and foods that your sensitive to. After eating do not lie down, allow 3-4 hours before in lie down. And keep the head of bed above 30 degrees to avoid the acid from going up. (5) Hypertension: Code(s): I10 - Essential (primary) hypertension Qualifiers: Hypertension type: essential hypertension Qualified Code(s): I10 - Essential (primary) hypertension Plan: Continue with blood pressure medication. Decrease salt intake and exercise on amlodipine 10 mg once a day (6) Seizure disorder: Code(s): G40.909 - Epilepsy, unspecified, not intractable, without status epilepticus Plan: Continue with present medication and advised to use the oxygen at night. Blood work requested Orders: Orders Complete Blood Count Auto Diff Today E03.9 - Hypothyroidism, unspecified Free T4 (Free Thyroxine) Today E03.9 - Hypothyroidism, unspecified Thyroid Stimulating Hormone Today E03.9 - Hypothyroidism, unspecified Lipid Panel Today E03.9 - Hypothyroidism, unspecified, E78.00 - Pure hypercholesterolemia, unspecified UA CC w/rflx Micro + Cult Today E03.9 - Hypothyroidism, unspecified, R30.0 - Dysuria Comprehensive Met. Panel Today E03.9 - Hypothyroidism, unspecified Vitamin B12 and Folate Today E03.9 - Hypothyroidism, unspecified Vitamin D 25-OH Total Today E03.9 - Hypothyroidism, unspecified Coding Level of Care Code Est Pt Level 4 (89488) Diagnoses COVID-19 U07.1 Nocturnal hypoxemia G47.34 Acquired hypothyroidism E03.9 Hypothyroidism type: acquired Ford's esophagus with low grade dysplasia K22.710 Ford's esophagus type: with low grade dysplasia Essential hypertension I10 Hypertension type: essential hypertension Seizure disorder G40.909
== END 2023-10-13 12:02 | disposition home or self-care (01) ==
PROVIDERS: PCP Internal Medicine; Visit Provider Internal Medicine
DX: U07.1 COVID-19 (principal); G40.909 Epilepsy, unspecified, not intractable, without status epilepticus; G47.34 Idiopathic sleep related nonobstructive alveolar hypoventilation; E03.9 Hypothyroidism, unspecified; K22.710 Barrett's esophagus with low grade dysplasia; I10 Essential (primary) hypertension
CPT/HCPCS: 99214

== ENCOUNTER 2023-10-13 12:08 | Outpatient (REF) | payer MEDICARE, SELFPAY ==
[2023-10-13 12:26] LABS: MANUAL DIFF FLAG NO
[2023-10-13 13:02] LABS: Basophils Percent Auto 0.7 % (0-2); Eosinophils Absolute Auto 0.1 X10*3/uL (0.0-0.4); Eosinophils Percent Auto 1.1 % (0-4); Hematocrit 47.4 % (37.0-47.0); Hemoglobin 14.9 g/dl (12.0-16.0); Imm Gran Abs Auto 0.01 X10*3/uL (0.00-0.03); Imm Gran Pct Auto 0.2 % (0.0-0.4); Lymphocytes Absolute Auto 1.1 X10*3/uL (1.2-4.9); Lymphocytes Percent Auto 25.8 % (20-40); Mean Corpuscular HGB Conc 31.4 g/dl (31.0-35.0); Mean Corpuscular Hemoglobin 27.5 pg (27.0-33.0); Mean Corpuscular Volume 87.5 fL (80.0-98.0); Mean Platelet Volume 11.4 fL (9.4-12.3); Monocytes Absolute Auto 0.4 X10*3/uL (0.1-1.2); Monocytes Percent Auto 9.6 % (2-11); Neutrophils Absolute Auto 2.7 x10*3/uL (2.0-8.3); Neutrophils Percent Auto 62.6 % (45-73); Platelet Count 252 X10*3/uL (160-400); Red Blood Count 5.42 X10*6/uL (4.20-5.50); Red Cell Distribution Width 13.2 % (11.0-16.0); White Blood Count 4.4 X10*3/uL (4.8-10.8)
[2023-10-13 13:50] LABS: Alanine Aminotransferase 9 U/L (0-31); Alkaline Phosphatase 80 U/L (39-117); Anion Gap 13 (12-20); Aspartate Amino Transferase 18 U/L (5-31); Bilirubin Total 0.4 mg/dL (0.0-1.0); Blood Urea Nitrogen 17 mg/dL (9-16); Calcium 10.1 mg/dL (8.4-10.2); Carbon Dioxide 28 mmol/L (22-29); Chloride 106 mmol/L (96-108); Estimated Glomerular Filt Rate > 60; Glucose Random 91 mg/dL (60-115); Potassium 5.1 mmol/L (3.3-5.1); Sodium 142 mmol/L (135-145); Total Protein 7.7 g/dL (6.5-8.0)
== END 2023-10-13 12:09 | disposition home or self-care (01) ==
LOC: HO.LAB 12:08
PROVIDERS: PCP Internal Medicine; Visit Provider Psychiatry & Neurology Neurology
DX: R56.9 Unspecified convulsions (principal)
CPT/HCPCS: 36415; 80053; 85025

== ENCOUNTER 2023-10-20 14:27 | Outpatient (REF) | payer MEDICARE, SELFPAY ==
--- NOTE | ~2023-10-20 | CT_ITS ---
EXAMINATION: CT HEAD WITHOUT CONTRAST CLINICAL INFORMATION: Seizures COMPARISON: 07/31/2023, 06/21/2023. MR brain 07/12/2017. TECHNIQUE: Contiguous axial imaging was performed from the skull base to vertex without intravenous administration of contrast. This CT examination was performed using dose optimization techniques as appropriate, variously including the following: *Automated exposure control *Adjustment of mA and/or kV according to patient size (this includes techniques or standardized protocols for targeted exams where dose is matched to indication/reason for exam; i.e. extremities or head) *Use of iterative reconstruction technique DLP: 749 mGy-cm Please note, due to [facility] [employer] contractual, systems, and staffing issues, an [facility] radiologist was not available for review and dictation of this case until 12/12/2023. FINDINGS: There is no evidence of intracranial hemorrhage or extra-axial fluid collection. There is no mass effect, or edema. No CT evidence of acute territorial infarct. Negative hyperdense MCA sign. Ventricles are mildly more prominent than would be expected for the degree of sulcal prominence, a finding which is most consistent with central volume loss. No hydrocephalus or transependymal CSF resorption. No change in the size of the ventricles. There is a enlarged perivascular space versus old lacunar infarct in the right subinsular space. This is unchanged. There is an old lacunar type infarct in the anterior limb of the left internal capsule, stable. Additional old lacunar infarct in the left lateral thalamus, stable. There is moderate to extensive supratentorial hemispheric white matter hypoattenuation, in keeping with small vessel ischemic changes. Partial empty sella noted. There is thinning of the corpus callosum diffusely. Mild atheromatous calcification of the bilateral carotid siphons and V4 segments vertebral arteries bilaterally. There are anterior falcine calcifications. Globes and orbital contents image normally. Bilateral lens replacements. No extracranial soft tissue abnormalities. The paranasal sinuses, mastoid air cells, and tympanic cavities are normally aerated. No suspicious bony abnormalities. CT/CT head/brain wo IV con IMPRESSION: 1. No acute intracranial abnormalities. Stable examination without change from 07/31/2023. 2. Moderate to extensive supratentorial small vessel ischemic changes in the white matter. 3. 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 4. Enlarged perivascular space versus old lacunar infarct in the right subinsular space, stable. 5. Prominence of the ventricles in relation to sulcal prominence, most likely reflecting central volume loss. This finding is unchanged. No hydrocephalus. Electronically signed by: Cy Christianson MD 12/12/2023 08:25 AM EDT
== END 2023-10-20 14:28 | disposition home or self-care (01) ==
LOC: HO.CT 14:27
PROVIDERS: PCP Internal Medicine; Visit Provider Psychiatry & Neurology Neurology
DX: R56.9 Unspecified convulsions (principal)
CPT/HCPCS: 70450

== ENCOUNTER → 2023-10-20 14:30 | Outpatient (BNV) | payer MEDICARE, SELFPAY | PROVIDERS: PCP Internal Medicine; Visit Provider Radiology Diagnostic Radiology | DX: R56.9 Unspecified convulsions (principal) | CPT/HCPCS: 70450 ==

== ENCOUNTER 2023-11-03 10:33 | Outpatient (REF) | payer MEDICARE, SELFPAY ==
--- NOTE | ~2023-11-03 | US_ITS ---
EXAMINATION: US RETROPERITONEAL COMPLETE (RENAL) CLINICAL INFORMATION: Follow up renal cysts. COMPARISON: CT abdomen and pelvis dated 11/08/2023; abdominal ultrasound dated 11/08/2023; retroperitoneal ultrasound dated 10/21/2022. TECHNIQUE: Real-time imaging of the kidneys and bladder. FINDINGS: RIGHT KIDNEY: 8.9 x 3.6 x 5.4 cm (SAG x AP x TRV). The kidney is normal in size, contour, and echogenicity. Renal cortical thickness is normal. No calculi or focal parenchymal solid lesions. No hydronephrosis. At the upper pole, a 9 mm benign, simple cyst is seen, for which no imaging follow-up is recommended. LEFT KIDNEY: 9.6 x 4.8 x 4.6 cm (SAG x AP x TRV). The kidney is normal in size, contour, and echogenicity. Renal cortical thickness is normal. No calculi or focal parenchymal solid lesions. No hydronephrosis. US/US renal BI IMPRESSION: Unremarkable examination. Electronically signed by: Glies Khanna MD 12/01/2023 01:41 PM EDT
== END 2023-11-03 10:34 | disposition home or self-care (01) ==
LOC: HO.HMGCX 10:33
PROVIDERS: PCP Internal Medicine; Visit Provider Nurse Practitioner Family
DX: N28.1 Cyst of kidney, acquired (principal)
CPT/HCPCS: 76775

== ENCOUNTER 2023-11-08 01:51 | Emergency (ER) | payer MEDICARE, SELFPAY ==
[2023-11-08] VITALS (14 sets, daily range): BP systolic 146–188; BP diastolic 61–147; PULSE 56–92; RESP 14–95; TEMP 36.3–37.6; O2SAT 91–98; BMI 22.7
--- NOTE | 2023-11-08 | ECG_ITS ---
Test Reason : FALL Blood Pressure : / mmHG Vent. Rate : 064 BPM Atrial Rate : 064 BPM P-R Int : 168 ms QRS Dur : 086 ms QT Int : 414 ms P-R-T Axes : 075 068 070 degrees QTc Int : 427 ms Normal sinus rhythm Nonspecific T wave abnormality Abnormal ECG When compared with ECG of 31-JUL-2023 15:21, Premature atrial complexes are no longer Present Referred By: Generic ED Physician Electronically Signed By:Bang Kitchen
--- NOTE | ~2023-11-08 | US_ITS ---
EXAMINATION: US ABDOMEN LIMITED CLINICAL INFORMATION: Elevated LFTs. COMPARISON: 10/17/2021 TECHNIQUE: Real-time imaging of the right upper quadrant abdominal viscera. FINDINGS: PANCREAS: Normal. LIVER: Diffuse increased echogenicity. The liver is normal in size. The liver contour is normal. No focal hepatic lesion. Moderate dilatation of the intrahepatic ductal system. No obstructing lesion demonstrated on ultrasound. GALLBLADDER: Surgically absent. No fluid collection. COMMON BILE DUCT: Prominent in caliber measuring 1.3 cm in diameter. Common hepatic duct dilated to approximately 1.8 cm. No definite choledocholithiasis. RIGHT KIDNEY: Cyst measuring up to 8 mm incidentally noted. No hydronephrosis. No renal calculi or focal parenchymal lesions. The kidney measures 9 cm in maximum dimension. FREE FLUID: None. US/US abdomen limited IMPRESSION: 1. Status post cholecystectomy. 2. Significant biliary ductal dilatation. No obstructing lesion demonstrated on ultrasound.
--- NOTE | ~2023-11-08 | XR_ITS ---
EXAMINATION: XR CHEST CLINICAL INFORMATION: Fall. COMPARISON: Chest x-ray dated 07/31/2023. TECHNIQUE: AP portable view of the chest was obtained. FINDINGS: EKG leads overlie the chest. The cardiomediastinal silhouette is within normal limits in size. Desiccation of the aortic arch is seen. Lungs bilaterally are symmetrically hyperinflated with thickening of the small airways and coarsening of bronchovascular lung markings, suspicious for obstructive lung disease. No focal consolidation, effusion or pneumothorax is seen. Diffuse osteopenia. No displaced rib fractures. XR/XR chest 1V IMPRESSION: 1. Findings are suspicious for obstructive lung disease. No focal acute pulmonary process. 2. No displaced rib fractures seen.
--- NOTE | ~2023-11-08 | XR_ITS ---
EXAMINATION: XR KNEE, LEFT CLINICAL INFORMATION: Fall COMPARISON: None available. TECHNIQUE: Four views of the left knee. FINDINGS: Generalized mild spurring. No joint fluid or lipohemarthrosis. No definite disruption of the tibial plateaus. Patella intact. XR/XR knee LT 3V IMPRESSION: No definite fracture. Mild spurring.
--- NOTE | ~2023-11-08 | CT_ITS ---
EXAMINATION: CT ABDOMEN AND PELVIS WITH CONTRAST CLINICAL INFORMATION: Evaluate ductal dilatation, abnormal liver function tests COMPARISON: Ultrasound abdomen performed on the same date. CT abdomen and pelvis 11/06/2020 TECHNIQUE: Multidetector volumetric images were obtained from the superior aspect of the liver through the pubic symphysis following administration 85 mL of Omnipaque 350 intravenous contrast. Sagittal and coronal reformatted images were obtained on the technologist's workstation. Oral contrast: No This CT examination was performed using dose optimization techniques as appropriate, variously including the following: *Automated exposure control *Adjustment of mA and/or kV according to patient size (this includes techniques or standardized protocols for targeted exams where dose is matched to indication/reason for exam; i.e. extremities or head) *Use of iterative reconstruction technique DLP: 391 mGy-cm FINDINGS: LUNG BASES: Dependent bibasilar atelectasis. Emphysematous changes in the lung bases. LIVER, GALLBLADDER, AND BILIARY TREE: The liver is normal in size, shape with slightly decreased attenuation which may be secondary to mild hepatic steatosis or contrast bolus timing. No focal hepatic lesion. The gallbladder is surgically absent. Again noted diffuse intra and extra hepatic biliary ductal dilatation with the dilated common bile duct measuring up to 1.9 cm in its proximal aspect, previously measuring 1.7 cm and measuring up to 1.1 cm in its distal aspect, previous measuring 0.8 cm. No radiopaque filling defects along the course of the CBD. PANCREAS: Unremarkable. SPLEEN: Unremarkable. ADRENAL GLANDS: Unremarkable. KIDNEYS AND URETERS: The kidneys are normal in size, shape, and attenuation. No hydroureteronephrosis. No perinephric stranding. Bilateral simple renal cortical cysts are again noted for which no dedicated follow-up imaging is required. Contrast within the renal collecting systems bilaterally limit evaluation for small calculi. BLADDER: Urinary bladder is well distended without calculi or significant wall thickening. Again noted bilateral bladder diverticula, slightly decreased in size from prior exam for instance the left bladder diverticulum now measures 6.5 x 5.6 cm, previously measuring 8.3 x 5.3 cm. Minimal layering contrast within the left bladder diverticulum. GASTROINTESTINAL TRACT: Stomach and small bowel are nondilated. There is no evidence of colonic wall thickening or pericolonic inflammatory changes. The appendix is not definitively visualized. No inflammatory changes in the expected location of appendix. ABDOMINAL WALL: No significant hernia is appreciated. LYMPH NODES: No abdominopelvic lymphadenopathy. VASCULAR: The abdominal aorta is nonaneurysmal with extensive atherosclerotic calcifications. PELVIC VISCERA: Unremarkable. OSSEOUS STRUCTURES: Mild degenerative changes of the visualized spine. No acute or suspicious osseous abnormality. CT/CT abdomen pelvis w IV con IMPRESSION: Status post cholecystectomy. Again noted diffuse intra and extrahepatic biliary ductal dilatation, slightly increased from prior exam. No radiopaque filling defects along the course of the CBD. If there is clinical concern for choledocholithiasis, further evaluation with MRI/MRCP is recommended. Bilateral bladder diverticula as detailed.
[2023-11-08 02:42] LABS: Basophils Percent Auto 0.4 % (0-2); Eosinophils Absolute Auto 0.1 X10*3/uL (0.0-0.4); Eosinophils Percent Auto 0.6 % (0-4); Hematocrit 43.4 % (37.0-47.0); Hemoglobin 13.9 g/dl (12.0-16.0); Imm Gran Abs Auto 0.03 X10*3/uL (0.00-0.03); Imm Gran Pct Auto 0.4 % (0.0-0.4); Lymphocytes Absolute Auto 0.9 X10*3/uL (1.2-4.9); Lymphocytes Percent Auto 11.2 % (20-40); MANUAL DIFF FLAG NO; Mean Corpuscular Hemoglobin 27.5 pg (27.0-33.0); Mean Corpuscular Volume 85.8 fL (80.0-98.0); Mean Platelet Volume 11.1 fL (9.4-12.3); Monocytes Absolute Auto 0.7 X10*3/uL (0.1-1.2); Monocytes Percent Auto 8.4 % (2-11); Neutrophils Absolute Auto 6.2 x10*3/uL (2.0-8.3); Platelet Count 165 X10*3/uL (160-400); Red Blood Count 5.06 X10*6/uL (4.20-5.50); Red Cell Distribution Width 13.6 % (11.0-16.0); White Blood Count 7.9 X10*3/uL (4.8-10.8)
[2023-11-08 03:12] LABS: Alanine Aminotransferase 115 U/L (0-31); Albumin Level 3.7 g/dL (3.5-5.0); Alkaline Phosphatase 149 U/L (39-117); Anion Gap 14 (12-20); Aspartate Amino Transferase 289 U/L (5-31); Bilirubin Total 0.8 mg/dL (0.0-1.0); Blood Urea Nitrogen 20 mg/dL (9-16); Calcium 9.4 mg/dL (8.4-10.2); Carbon Dioxide 25 mmol/L (22-29); Chloride 107 mmol/L (96-108); Creatinine Clr Calc Pharmacy 36.6; Estimated Glomerular Filt Rate 57; Glucose Random 127 mg/dL (60-115); Lipase 117 U/L (8-78); Potassium 3.9 mmol/L (3.3-5.1); Sodium 142 mmol/L (135-145); Total Protein 6.7 g/dL (6.5-8.0)
[2023-11-08 07:41] LABS: Magnesium 1.8 mg/dL (1.6-2.6)
[2023-11-08] MEDS: levETIRAcetam 500 MG TABLET PO ×2 (07:46→20:43)
[2023-11-08 07:49] LABS: Troponin-I High Sensitivity < 2.7 ng/L (<3.5-17.0)
[2023-11-08 07:59] LABS: Lactic Acid 1.1 mmol/L (0.5-2.0)
--- NOTE | 2023-11-08 08:22 | ED.FALL ---
HPI - Fall General Chief Complaint: Fall Stated Complaint: FALL Time Seen by Provider: 11/08/23 06:35 Source: patient, EMS, RN notes reviewed and old records reviewed Mode of arrival: EMS History of Present Illness ED Provider: Sue Naidu PA-C HPI Narrative: 78-year-old female with past medical history of COPD on baseline 2 L NC, seizure disorder on Keppra, frequent falls, anemia, hypothyroid, HTN, Ford's esophagus, presenting to the ED via EMS complaining of left knee and foot pain s/p witnessed fall at home without head strike. Patient states left knee gave out and fell to ground, was helped up by family, denies head trauma or LOC. patient/son deny seizure-like activity, incontinence/tongue biting. Patient denies headache, CP/SOB, abdominal pain, nausea/vomiting. Related Data Home Medications ?Medication ?Instructions ?Recorded ?Confirmed ferrous gluconate 240 mg (27 mg 240 mg PO DAILY 09/05/21 08/18/23 iron) tablet (Ferate) diphenoxylate-atropine 2.5 1 tab PO BID 10/09/21 08/18/23 mg-0.025 mg tablet cetirizine 10 mg capsule 10 mg PO BEDTIME Allergy Symptoms 07/31/23 08/18/23 docusate sodium 100 mg tablet 100 mg PO DAILY 07/31/23 08/18/23 levetiracetam 500 mg tablet 500 mg PO BID 07/31/23 08/18/23 memantine 5 mg tablet 5 mg PO BID 07/31/23 08/18/23 Previous Rx's ?Medication ?Instructions ?Recorded blood pressure monitor (Blood #1 ea 05/06/22 Pressure Kit) albuterol sulfate 90 mcg/actuation 2 puff PO Q6H PRN shortness of 10/02/22 aerosol inhaler (Ventolin HFA) breath or wheezing #8.5 grams amlodipine 10 mg tablet 10 mg PO DAILY #90 tabs 10/02/22 cholecalciferol (vitamin D3) 50 50 mcg PO DAILY #30 caps 10/02/22 mcg (2,000 unit) capsule simvastatin 20 mg tablet 20 mg PO BEDTIME 90 days #90 tabs 06/03/23 levothyroxine 112 mcg tablet 112 mcg PO DAILY 90 days #90 tabs 07/28/23 inhalational spacing device #1 ea 08/18/23 (POCKET CHAMBER spacer) omeprazole 20 mg capsule,delayed 20 mg PO DAILY #90 caps 10/22/23 release sertraline 50 mg tablet 50 mg PO DAILY #90 tabs 11/03/23 Allergies Allergy/AdvReac Type Severity Reaction Status Date / Time amoxicillin [AMOXICILLIN] Allergy Intermediate STOMACH Verified 11/08/23 02:07 ISSUES pollen extracts [POLLEN] Allergy Mild RUNNY Verified 11/08/23 02:07 NOSE, SNEEZING, ITCHY EYES Review of Systems Review of Systems: Constitutional: No Fever, No Chills ENT/Mouth: No Ear Pain, No Nasal Congestion, No sore throat, No Rhinorrhea, No Swallowing Difficulty Cardiovascular: No Chest Pain, No SOB Respiratory: No Cough, No Sputum Gastrointestinal: No Nausea, No Vomiting, No Diarrhea, No Constipation, No Abdominal pain Genitourinary: No Dysuria, No Hematuria, No Urinary Incontinence/retention, No Urgency, No Flank Pain Musculoskeletal: +joint pain, No Myalgias, No Joint Swelling Skin: No Skin Lesions, No rash Neuro: No Weakness, No Numbness Yes all other systems are reviewed and are negative Constitutional: Constitutional: Reports as per HPI Neurologic: Denies Abnormal speech present [facility] Past Medical History Attestation statement: The following information was validated with the patient. Source: old records reviewed Medical History Nocturnal hypoxemia Acute rhinosinusitis Microscopic hematuria Renal cyst Osteoarthritis, knee COPD (chronic obstructive pulmonary disease) Acute and chronic respiratory failure with hypoxia COPD exacerbation LFT elevation Shortness of breath Rash Bilateral knee pain Hematuria Frequent falls Left-sided back pain Seizure disorder Allergic rhinitis Generalized abdominal pain Anemia Initial Medicare annual wellness visit Screening for osteoporosis Hypoxemia Anemia Syncope Nausea Chronic diarrhea Diarrhea Bile salt-induced diarrhea Cutaneous lupus erythematosus Osteoarthritis Hypertension Vitamin D deficiency COPD (chronic obstructive pulmonary disease) Ford's esophagus GERD (gastroesophageal reflux disease) Hypothyroid Surgical History History of cataract surgery History of rectal surgery History of ear surgery History of cholecystectomy History of eye surgery Family History Family History Father Lymphoma Lung cancer Mother Hypertension Diabetes Sister Brain cancer Social History Social History Household Members: Family Household Members Other:: son, his and their 2 kids Housing: House Do you presently have visiting nurse or other home services: No Alcohol intake: former Patient Tobacco Use Status: Former Tobacco user Tobacco use type: Cigarette Smoked in Last 30 Days: No e-Cigarette/Vaping Use: Never Used Second Hand Smoke Exposure: No Use of substances other than those prescribed or required for medical reasons: No Advance Directives: No Advance Directives Information Provided: Yes Do you have a plan to hurt others: No Plan service: No Current occupational status: retired Cognitive needs: No Hearing needs: Yes (hearing aide) Vision needs: Yes (Glasses) Physical Exam Vital Signs: Vital Signs: Last Vital Signs Temp 97.4 F 11/08/23 15:47 Pulse 69 11/08/23 15:47 Resp 14 11/08/23 15:47 BP 176/147 H 11/08/23 15:47 Pulse Ox 98 11/08/23 15:47 O2 Del Method Nasal Cannula 11/08/23 15:47 O2 Flow Rate 2 11/08/23 15:47 Oxygen Flow Rate 3 11/08/23 02:00 BMI result Body Mass Index 22.7 Const: General: cooperative, healthy appearing and no acute distress Orientation/consciousness: patient oriented x3 Limitations: no limitations HEENT: Head: Yes normal to inspection and Yes atraumatic Ears: hearing grossly normal bilaterally General nose exam: Normal external nose present Face and sinus: Yes normal facial exam Throat: Yes posterior oropharynx normal and Yes uvula midline Eyes: General: appearance normal, both eyes and all related structures Pupils: Equal, round and reactive pupils present EOM: EOMs intact bilaterally Neck: Neck: Yes normal visual inspection and Yes no meningeal signs Resp: Effort & Inspection: normal respiratory effort and no respiratory distress Auscultation: clear to auscultation bilaterally, no crackles and no wheezes Cardio: Rate: regular rate Heart sounds: S1 normal heart sound present and S2 normal heart sound present GI: Inspection: Yes normal to inspection Palpation (GI): Soft to palpation, nontender, no guarding and not rigid : General: Yes no CVA tenderness Back/Spine/Pelvis: Other: No midline cervical/thoracic/lumbar spinous tenderness/step-off or deformity Back: no CVA tenderness Skin: Rashes: no rashes Wounds: no wounds Neuro: General: patient oriented x3, tone normal, moves all extremities, no meningeal signs, no focal motor deficits and CN's II-XI intact bilaterally Cranial nerves: Yes CN's II-XII intact bilaterally and Yes Equal, round and reactive pupils present Cognition (Neuro): normal cognition Speech: No Abnormal speech present Motor exam (neuro): 5/5 motor strength present throughout and no tremor noted Extrem: Other: Left foot with mild tenderness to 1st and 2nd toes, no appreciable deformity. NV intact Left knee without appreciable deformity. + diffusely tender to palpation. No erythema/warmth. Limited flexion secondary to pain General: Yes normal to inspection Course Course Course Narrative: -0830--no leukocytosis. + elevated AST/ALT and alk phos. Lipase mildly elevated at 117 > will obtain abdomen ultrasound for further eval -troponin negative -1103--UA negative XR chest 1V IMPRESSION: 1. Findings are suspicious for obstructive lung disease. No focal acute pulmonary process. 2. No displaced rib fractures seen. XR knee LT 3V IMPRESSION: No definite fracture. Mild spurring. US abdomen limited IMPRESSION: 1. Status post cholecystectomy. 2. Significant biliary ductal dilatation. No obstructing lesion demonstrated on ultrasound. >> will obtain CT for further eval CT abdomen pelvis w IV con IMPRESSION: Status post cholecystectomy. Again noted diffuse intra and extrahepatic biliary ductal dilatation, slightly increased from prior exam. No radiopaque filling defects along the course of the CBD. If there is clinical concern for choledocholithiasis, further evaluation with MRI/MRCP is recommended. Bilateral bladder diverticula as detailed. > will consult General surgery, Dr. Dejesus > patient without abdominal tenderness or rebound. >Dr. Dejesus recommended patient will need MRCP, but can be done as outpatient with GI -patient with multiple falls at home per herself and son due to knee giving out. Agreeable to spend the night in the ED for physical therapy evaluation in the morning. Will also obtain case management consult. Physician observation initiated at 15:23 -1630--ED care transferred to SIOMRAA Polanco pending PT/case management Medications Administered Discontinued Medications Generic Name Dose Route Start Last Admin Trade Name Freq PRN Reason Stop Dose Admin Iohexol 100 ml 11/08/23 11:53 11/08/23 11:54 Iohexol 350 Mg/Ml 100 Ml Infus..Btl IV 11/08/23 11:54 85 ml ONCE ONE Administration Levetiracetam 500 mg 11/08/23 07:30 11/08/23 07:46 Levetiracetam 500 Mg Tablet PO 11/08/23 07:31 500 mg ONCE ONE Administration Medical Decision Making Medical Decision Making [facility] Narrative: 78-year-old female with past medical history of COPD on baseline 2 L NC, seizure disorder on Keppra, frequent falls, anemia, hypothyroid, HTN, Ford's esophagus, presenting to the ED via EMS complaining of left knee and foot pain s/p witnessed fall at home without head strike. On exam vital signs stable, NAD, nontoxic appearing, physical exam as noted above, no focal neuro deficits. No midline spinous tenderness. Concern for knee giving out vs fracture vs osteoarthritis. Low suspicion for ICH. Rule out metabolic/infectious etiologies and orthostasis. Low suspicion for seizure activity this morning. Plan: EKG, labs, UA, x-ray, re-evaluate. Spoke with patient's son, feels safe for patient to return home if workup unremarkable, states she [place] [facility] [place] also states patient is noncompliant with her home medications. Reiterates he did not witness any seizure-like activity or incontinence. Please refer to course for remaining clinical decision making, interpretation of labs/imaging results, and discussions with consultants and/or family members. Differential Diagnosis Differential Diagnoses: The differential diagnosis associated with the presentation includes As above Admission/Observation Consideration of admission/observation: Escalation of care including admission/observation considered Lab Data [facility] Lab Attestation statement: I reviewed the patient's lab results. 11/08/23 02:38 11/08/23 02:38 Labs: Lab Results 11/08/23 11/08/23 11/08/23 Range/Units 02:38 07:43 10:10 WBC 7.9 (4.8-10.8) X10*3/uL RBC 5.06 (4.20-5.50) X10*6/uL Hgb 13.9 (12.0-16.0) g/dl Hct 43.4 (37.0-47.0) % MCV 85.8 (80.0-98.0) fL MCH 27.5 (27.0-33.0) pg MCHC 32.0 (31.0-35.0) g/dl RDW 13.6 (11.0-16.0) % Plt Count 165 D (160-400) X10*3/uL MPV 11.1 (9.4-12.3) fL Immature Gran % (Auto) 0.4 (0.0-0.4) % Neut % (Auto) 79.0 H (45-73) % Lymph % (Auto) 11.2 L (20-40) % [place] % (Auto) 8.4 (2-11) % Eos % (Auto) 0.6 (0-4) % Baso % (Auto) 0.4 (0-2) % Lymph # (Auto) 0.9 L (1.2-4.9) X10*3/uL [place] # (Auto) 0.7 (0.1-1.2) X10*3/uL Eos # (Auto) 0.1 (0.0-0.4) X10*3/uL Baso # (Auto) 0.0 (0.0-0.2) X10*3/uL Abs Immat Gran (auto) 0.03 (0.00-0.03) X10*3/uL Absolute Neuts (auto) 6.2 (2.0-8.3) x10*3/uL Absolute Nucleated RBC 0.000 (0.0-0.012) X10*3/uL Nucleated RBC % (auto) 0.0 (0.0-0.2) /100WBC Sodium 142 (135-145) mmol/L Potassium 3.9 D (3.3-5.1) mmol/L Chloride 107 (96-108) mmol/L Carbon Dioxide 25 (22-29) mmol/L Anion Gap 14 (12-20) BUN 20 H (9-16) mg/dL Creatinine 0.94 (0.5-1.4) mg/dL Estim Creat Clear Calc 36.6 Estimated GFR 57 Random Glucose 127 H (60-115) mg/dL Lactic Acid 1.1 (0.5-2.0) mmol/L Calcium 9.4 D (8.4-10.2) mg/dL Magnesium 1.8 (1.6-2.6) mg/dL Total Bilirubin 0.8 (0.0-1.0) mg/dL AST 289 H (5-31) U/L ALT 115 H (0-31) U/L Alkaline Phosphatase 149 H (39-117) U/L Total Creatine Kinase 20 L (26-140) U/L Troponin I High Sens < 2.7 D (<3.5-17.0) ng/L Total Protein 6.7 (6.5-8.0) g/dL Albumin 3.7 (3.5-5.0) g/dL Lipase 117 H (8-78) U/L Urine Color Yellow Urine Appearance Clear Urine pH 5.5 (5.0-9.0) Ur Specific [place] 1.015 (1.005-1.025) Urine Protein Trace (Neg-Trace) mg/dL Urine Glucose (UA) Negative (Negative) mg/dL Urine Ketones Negative (Negative) mg/dL Urine Blood Negative (Negative) Urine Nitrite Negative (Negative) Ur Leukocyte Esterase Trace H (Negative) Urine RBC 0-2 (0-2) /HPF Urine WBC 0-5 (0-5) /HPF Ur Squamous Epith Cells 3-5 (0-2) /HPF Urine Bacteria None Seen (None Seen) Hyaline Casts 0-2 (0-2) /LPF Independent Interpretation I performed an independent interpretation of an: EKG and Plain X-Ray Radiology Impression Discussion of test interpretation with radiology: I have reviewed the radiologist's reading. Independent Historian Clinical information obtained from an independent historian. History obtained from or confirmed by: EMS and Other (Son) External Record Review External record reviewed: Inpatient record, Office record, Outpatient record, Prior outpatient labs, Prior outpatient radiology, Primary care record and Outside ED record Tests considered The following testing was considered but not selected: As above Chronic Conditions Patient?s care impacted by: Other (Seizure, COPD) Discharge Plan Discharge Clinical Impression: Transaminitis, Intrahepatic bile duct dilation, Falls, Knee pain Patient Disposition: Still a Patient Prescriptions: No Action amlodipine 10 mg tablet 10 mg PO DAILY Qty: 90 3RF albuterol sulfate [Ventolin HFA] 90 mcg/actuation HFA aerosol inhaler 2 puff PO Q6H PRN (Reason: shortness of breath or wheezing) Qty: 8.5 1RF Rx Instructions: substitute allowed cholecalciferol (vitamin D3) 50 mcg (2,000 unit) capsule 50 mcg PO DAILY Qty: 30 2RF simvastatin 20 mg tablet 20 mg PO BEDTIME 90 Days Qty: 90 2RF levothyroxine 112 mcg tablet 112 mcg PO DAILY 90 Days Qty: 90 3RF omeprazole 20 mg capsule,delayed release(DR/EC) 20 mg PO DAILY Qty: 90 1RF Hold Instructions: Doctor's Order sertraline 50 mg tablet 50 mg PO DAILY Qty: 90 0RF memantine 5 mg tablet 5 mg PO BID levetiracetam 500 mg tablet 500 mg PO BID cetirizine 10 mg capsule 10 mg PO BEDTIME docusate sodium 100 mg Tablet 100 mg PO DAILY (DME) blood pressure monitor [Blood Pressure Kit] Kit See Rx Instructions .ROUTE .MEDSUPPLY Qty: 1 0RF Rx Instructions: As directed ferrous gluconate [Ferate] 240 mg (27 mg iron) tablet 240 mg PO DAILY diphenoxylate-atropine 2.5-0.025 mg tablet 1 tab PO BID (DME) POCKET CHAMBER Spacer See Rx Instructions .Route Qty: 1 0RF Rx Instructions: As directed Print Language: Montserratian
--- NOTE | 2023-11-08 10:10 | PC.NURSE ---
Urine collected and sent as ordered.
[2023-11-08 10:21] LABS: Appearance Urine Clear; Color Urine Yellow; Glucose Urine UA Negative (Negative); Leukocyte Esterase Urine Trace (Negative); Nitrite Urine Negative (Negative); PH 5.5 (5.0-9.0); Specific Gravity - Urine 1.015 (1.005-1.025); UMIC TRIGGER UACC YES; Urine Blood Negative (Negative); Urine Ketones Negative (Negative); Urine Protein Trace mg/dL (Neg-Trace)
[2023-11-08 10:24] LABS: Bacteria Urine None Seen (None Seen); Hyaline Casts Urine 0-2 /LPF (0-2); RBC Urine 0-2 /HPF (0-2); WBC Urine 0-5 /HPF (0-5)
[2023-11-08] MEDS: iohexoL 350 MG/ML 100 ML INFUS..BTL IV (11:54)
--- NOTE | 2023-11-08 17:25 | PC.NURSE ---
MED REC COMPLETED. ELEVATED BP, 170S/60S. HAS NOT TAKEN NORVASC YET TODAY. PT MOVED TO OVERFLOW. PA NOTIFIED OF BP AND NEED FOR CONTINUATION OF HOME RXS.
--- NOTE | 2023-11-08 18:21 | PHA.MEDREC ---
Pharmacy Consult ? Medication Reconciliation Pharmacy has completed the medication reconciliation.pharmacy has reviewed med rec done by nursing.
[2023-11-08] MEDS: amLODIPine Besylate 10 MG TABLET PO ×2 (19:21→23:46)
--- NOTE | 2023-11-08 19:35 | MHC.EDTECH ---
This tech answered call crystal. Patient requesting to use bathroom for bowel movement. Per RN Gail, bedside commode with assist. This tech brought commode to room, with warm wipes and tissue paper and assisted patient to commode. Patient aware to ring call crystal when finished for assistance back to bed.
--- NOTE | 2023-11-08 20:10 | MHC.EDTECH ---
Addendum entered by Jeanette Walker 11/08/23 21:53: CHARO Reynolds notified. Original Note: This tech heard a noise from patient room. Upon entering room observed patient vomiting on to the floor while sitting on commode. Patient states that this happens when I'm constipated, and sometimes I pass out. This tech supplied patient with emesis bag and cleaned the floor while patient finished up on commode. Assisted patient to bed.
--- NOTE | 2023-11-08 20:10 | PC.NURSE ---
Patient vomited while having a bowel movement on the commode tonight; patient states that this is something that happens to her sometimes and that her providers are aware of it. Patient remains alert and oriented, was assisted back to bed with 1 assist, vital signs obtained. SIOMARA Rosen made aware of events.
[2023-11-08] MEDS: Atorvastatin Calcium 10 MG TABLET PO (20:43)
[2023-11-08] MEDS: Loratadine 10 MG TABLET PO (20:43)
[2023-11-08] MEDS: Memantine HCl 5 MG TABLET PO (20:43)
--- NOTE | 2023-11-08 21:50 | MHC.EDTECH ---
This tech answered call rojas. Patient was asking for assistance to commode. After patient finished with commode this tech helped patient back to bed and straightened bedding adding a warm blanket.
--- NOTE | 2023-11-08 22:36 | PC.NURSE ---
Patient BP noted to be elevated per documented vital signs, SIOMARA Rosen made aware of BP.
[2023-11-08] MEDS: Acetaminophen 325 MG TABLET 650 MG PO (23:46)
[2023-11-09 01:23] VITALS: BP 143/67; PULSE 77; RESP 17; TEMP 37.4; O2SAT 95
[2023-11-09] MEDS: Levothyroxine Sodium 112 MCG TABLET PO (06:23)
[2023-11-09] MEDS: Omeprazole 20 MG CAPSULE.DR PO (06:49)
[2023-11-09 07:36] VITALS: BP 138/71; PULSE 59; RESP 18; TEMP 36.5; O2SAT 96
[2023-11-09] MEDS: Memantine HCl 5 MG TABLET PO ×2 (09:03→20:04)
[2023-11-09] MEDS: amLODIPine Besylate 10 MG TABLET PO (09:03)
[2023-11-09] MEDS: levETIRAcetam 500 MG TABLET PO ×2 (09:03→20:05)
[2023-11-09] MEDS: Sertraline HCL 50 MG TABLET PO (09:03)
[2023-11-09] MEDS: Fluticasone/Vilanterol 100/25 BLST.W.DEV 1 PUFF INHALE (11:11)
--- NOTE | 2023-11-09 12:19 | MHC.CM.PN ---
Addendum entered by Renu Harley RN 11/09/23 15:24: PLEASE DISREGARD LAST ADDENDUM, PT'S NIECE REQUESTING [facility].. ENTERRED IN ERROR Addendum entered by Renu Harley RN 11/09/23 12:39: CM RECEIVED MESSAGE FROM PT'S NIECE REQUESTING [facility], REFERRAL PLACED HOWEVER NOT LIKELT TO ACCEPT. Addendum entered by Renu Harley RN 11/09/23 12:36: REFERRALS PLACED TO [facility]. Original Note: EMR REVIEWED, PT W/FALL IN ED, CM MET W/PT WHO REPORTS SHE LIVES [place], [place] AND THEIR 2 CHILDREN, PT REPORTS SHE USES A CANE, HAS [facility] FOR HOME PT AND CURRENTLY HAS NO HOME SERVICES, PT IS OPEN TO HOME SERVICES AND AWARE SHE WOULD NEED TO PAY OUT OF POCKET FOR STR HOWEVER NOT LIKELT SHE WOULD BE ABLE TO DO THIS. PT VERIFIES PCP IS SMITHA SALDIVAR, HCP ON FILE VERIFIED CM WILL REACH OUT TO PT'S SON/HCP [facility] PER PT REQUEST.
[2023-11-09 14:00] VITALS: BP 137/71; PULSE 67; RESP 16; TEMP 36.8; O2SAT 93
--- NOTE | 2023-11-09 15:26 | MHC.CM.PN ---
CM RECEIVED CALL FROM PT'S SON/DIL ANDERS AND YUSUF, YUSUF REPORTS PT HAS AN EEG APPT AT [facility] W/DR [facility] AND WOULD LIKE FOR PT TO BE ABLE TO GO HOWEVER THEY WOULD ALSO LIKE FURTHER WORK UP PT IS NOT HERSELF AND IT SEEMS NOTHING IS FOUND WHEN SHE COMES TO THE ED, YUSUF REPORTS PT'S BP AD BEEN IN THE 190'S EVEN THOUGH PT HAD TAKEN HER BP MEDICATION ON FRIDAY PRIOR TO COMING IN, CM WILL DISCUSS W/COVERING ED PA. PT'S SON DOES PLAN ON CALLING MI COMING IN TOMORROW MORNING PRIOR TO PT'S EEG APPT, CM HAS INSTRUCTED ANDERS/YUSUF TO ASK FOR ED CM TO DISCUSS DISPO.
--- NOTE | 2023-11-09 19:48 | PC.NURSE ---
received from Sagrario MANCILLA, assume care of pt at this t
--- NOTE | 2023-11-09 19:50 | PC.NURSE ---
pt alert and appropriate, she was turned and repositioned Q2 hrs. Pt voiding w/purewick. No BM today. She napped intermittently and ate most of her meals. Pt denied complaint and was cooperative with care.
[2023-11-09] MEDS: Loratadine 10 MG TABLET PO (20:05)
[2023-11-09] MEDS: Atorvastatin Calcium 10 MG TABLET PO (20:05)
[2023-11-09] MEDS: Acetaminophen 325 MG TABLET 650 MG PO (20:06)
--- NOTE | 2023-11-09 20:07 | PC.NURSE ---
resting quietly in bed, A&OX3, resp with ease, pt c/o of knee pain, and requests tylenol, medicated as requested, will cont plan of care
[2023-11-09 21:44] VITALS: BP 148/71; PULSE 65; RESP 18; TEMP 36.5; O2SAT 92
--- NOTE | 2023-11-09 21:46 | PC.NURSE ---
pt watching tv, and doing a word puzzle, resp with ease, no acute distress noted, will cont plan of care
--- NOTE | 2023-11-10 02:11 | PC.NURSE ---
resting quietly with eyes closed,resp with ease, no acute distress noted.
--- NOTE | 2023-11-10 02:38 | MHC.EDTECH ---
patient cleaned and brief changed following void. Pt tolerated well.
--- NOTE | 2023-11-10 04:45 | PC.NURSE ---
pt resting quietly, with eyes closed, resp with ease, no s/s of acute distress, will cont plan of care
[2023-11-10] MEDS: Omeprazole 20 MG CAPSULE.DR PO (06:09)
[2023-11-10 06:12] VITALS: BP 147/70; PULSE 53; RESP 16; O2SAT 93
[2023-11-10] MEDS: Levothyroxine Sodium 112 MCG TABLET PO (06:55)
--- NOTE | 2023-11-10 07:17 | PC.NURSE ---
report given to Wong MANCILLA
[2023-11-10] MEDS: Sertraline HCL 50 MG TABLET PO (09:01)
[2023-11-10] MEDS: Memantine HCl 5 MG TABLET PO (09:01)
[2023-11-10] MEDS: amLODIPine Besylate 10 MG TABLET PO (09:01)
[2023-11-10] MEDS: levETIRAcetam 500 MG TABLET PO (09:02)
[2023-11-10 09:39] VITALS: BP 163/54; PULSE 65; RESP 14; TEMP 36.4; O2SAT 96
--- NOTE | 2023-11-10 10:08 | PC.NURSE ---
Assumed care for pt @700. A&Ox3 with intermittent episodes of confusion. OOB with PT this morning. Ambulting in room with a walker. Plan is for pt to be d/c home where she lives with her son and receive home services.
--- NOTE | 2023-11-10 11:51 | MHC.CM.PN ---
P.T. HAS RECOMMENDED HOME WITH SERVICES . SON/PT ARE IN AGREEMENT WITH THIS PLAN. PROVIDER/RN UPDATED. SON WILL P/U PT WITHIN THE HOUR. FIRST CHOICE FOR [facility] IS [facility], NOTIFIED OF TODAY'S DC.
[2023-11-11 20:09] LABS: Levetiracetam Keppra 32.2 mcg/mL (6.0-46.0)
== END 2023-11-10 12:10 | disposition home or self-care (01) ==
PROVIDERS: Physician Assistant; Emergency Provider Emergency Medicine
DX: M25.562 Pain in left knee (principal); Q44.5 Other congenital malformations of bile ducts; R74.01 Elevation of levels of liver transaminase levels; R29.6 Repeated falls; Z91.81 History of falling; I10 Essential (primary) hypertension; E78.00 Pure hypercholesterolemia, unspecified; J44.9 Chronic obstructive pulmonary disease, unspecified; Z99.81 Dependence on supplemental oxygen; Z79.02 Long term (current) use of antithrombotics/antiplatelets; Z79.899 Other long term (current) drug therapy
CPT/HCPCS: 36415; 71045; 73562; 74177; 76705; 80053; 80177; 81001; 82550; 83605; 83690; 83735; 84484; 85025; 93005; 97161; 99285; Q9967

== ENCOUNTER → 2023-11-08 02:06 | Outpatient (BNV) | payer MEDICARE, SELFPAY | PROVIDERS: Emergency Provider Emergency Medicine; Visit Provider Internal Medicine Cardiovascular Disease | DX: R94.31 Abnormal electrocardiogram [ECG] [EKG] (principal) | CPT/HCPCS: 93010 ==

== ENCOUNTER 2023-12-30 12:23 | Emergency (ER) | payer MEDICARE, SELFPAY ==
[2023-12-30 12:35] VITALS: BP 133/81; PULSE 68; O2SAT 98
[2023-12-30 12:38] VITALS: BP 108/62; PULSE 68; RESP 16; TEMP 36.3; O2SAT 100; BMI 23.4
--- NOTE | 2023-12-30 13:09 | ECG_ITS ---
Test Reason : SYNCOPE Blood Pressure : / mmHG Vent. Rate : 066 BPM Atrial Rate : 066 BPM P-R Int : 168 ms QRS Dur : 090 ms QT Int : 402 ms P-R-T Axes : 080 067 079 degrees QTc Int : 421 ms Normal sinus rhythm Normal ECG When compared with ECG of 08-NOV-2023 02:06, No significant change was found Referred By: Generic ED Physician Electronically Signed By:JASMIN ROBERTS
[2023-12-30 14:00] VITALS: BP 133/64; PULSE 64; RESP 11; TEMP 36.3; O2SAT 97
[2023-12-30 14:04] LABS: MANUAL DIFF FLAG NO
[2023-12-30 14:09] LABS: Basophils Percent Auto 0.4 % (0-2); Eosinophils Absolute Auto 0.1 X10*3/uL (0.0-0.4); Eosinophils Percent Auto 1.1 % (0-4); Hematocrit 41.8 % (37.0-47.0); Hemoglobin 13.4 g/dl (12.0-16.0); Imm Gran Abs Auto 0.02 X10*3/uL (0.00-0.03); Imm Gran Pct Auto 0.3 % (0.0-0.4); Lymphocytes Absolute Auto 0.9 X10*3/uL (1.2-4.9); Lymphocytes Percent Auto 11.6 % (20-40); Mean Corpuscular HGB Conc 32.1 g/dl (31.0-35.0); Mean Corpuscular Hemoglobin 27.4 pg (27.0-33.0); Mean Corpuscular Volume 85.5 fL (80.0-98.0); Monocytes Absolute Auto 0.6 X10*3/uL (0.1-1.2); Monocytes Percent Auto 7.4 % (2-11); Neutrophils Percent Auto 79.2 % (45-73); Platelet Count 227 X10*3/uL (160-400); Red Blood Count 4.89 X10*6/uL (4.20-5.50); Red Cell Distribution Width 13.8 % (11.0-16.0); White Blood Count 7.6 X10*3/uL (4.8-10.8)
--- NOTE | 2023-12-30 14:16 | ED.GENADULT ---
HPI - General Adult General Chief complaint: Weakness Stated complaint: NEAR SYNCOPE,NAUSEA Time Seen by Provider: 12/30/23 14:16 History of Present Illness ED Provider: Cyndi MCDOWELL narrative: The patient is a 78-year-old female who lives at her home with family members. She says she has not been feeling well for about 2 days. She has had nausea and diarrhea. She had a near syncopal episode after getting up from the toilet today. Ultimately she decided she should come to the hospital and called 911. She has had loose stools and some nausea but no vomiting. No abdominal pain. She also feels that she has a piece of toast stuck in her throat. Patient is on 2 L of oxygen at home. Related Data Home Medications ?Medication ?Instructions ?Recorded ?Confirmed cetirizine 10 mg capsule 10 mg PO BEDTIME Allergy Symptoms 07/31/23 11/08/23 levetiracetam 500 mg tablet 500 mg PO BID 07/31/23 11/08/23 albuterol sulfate 90 mcg/actuation 2 puff inhalation Q6H PRN wheezing 11/08/23 11/08/23 aerosol inhaler fluticasone 250 mcg-salmeterol 50 1 ea inhalation BID 11/08/23 11/08/23 mcg/dose blistr powdr for inhalation memantine 5 mg tablet 5 mg PO BID 11/08/23 11/08/23 Previous Rx's ?Medication ?Instructions ?Recorded blood pressure monitor (Blood #1 ea 05/06/22 Pressure Kit) amlodipine 10 mg tablet 10 mg PO DAILY #90 tabs 10/02/22 simvastatin 20 mg tablet 20 mg PO BEDTIME 90 days #90 tabs 06/03/23 levothyroxine 112 mcg tablet 112 mcg PO DAILY 90 days #90 tabs 07/28/23 inhalational spacing device #1 ea 08/18/23 (POCKET CHAMBER spacer) omeprazole 20 mg capsule,delayed 20 mg PO DAILY #90 caps 10/22/23 release sertraline 50 mg tablet 50 mg PO DAILY #90 tabs 11/03/23 acetaminophen 325 mg capsule 325 mg PO Q4H PRN pain #30 caps 11/10/23 (Tylenol) Allergies Allergy/AdvReac Type Severity Reaction Status Date / Time amoxicillin [AMOXICILLIN] Allergy Intermediate STOMACH Verified 12/30/23 12:40 ISSUES pollen extracts [POLLEN] Allergy Mild RUNNY Verified 12/30/23 12:40 NOSE, SNEEZING, ITCHY EYES Review of Systems Review of Systems: Yes all other systems are reviewed and are negative [facility] Past Medical History Medical History Nocturnal hypoxemia Acute rhinosinusitis Microscopic hematuria Renal cyst Osteoarthritis, knee COPD (chronic obstructive pulmonary disease) Acute and chronic respiratory failure with hypoxia COPD exacerbation LFT elevation Shortness of breath Rash Bilateral knee pain Hematuria Frequent falls Left-sided back pain Seizure disorder Allergic rhinitis Generalized abdominal pain Anemia Initial Medicare annual wellness visit Screening for osteoporosis Hypoxemia Anemia Syncope Nausea Chronic diarrhea Diarrhea Bile salt-induced diarrhea Cutaneous lupus erythematosus Osteoarthritis Hypertension Vitamin D deficiency COPD (chronic obstructive pulmonary disease) Ford's esophagus GERD (gastroesophageal reflux disease) Hypothyroid Surgical History History of cataract surgery History of rectal surgery History of ear surgery History of cholecystectomy History of eye surgery Family History Family History Father Lymphoma Lung cancer Mother Hypertension Diabetes Sister Brain cancer Social History Social History Household Members: Family Household Members Other:: son, his and their 2 kids Housing: House Do you presently have visiting nurse or other home services: No Alcohol intake: former Patient Tobacco Use Status: Former Tobacco user Tobacco use type: Cigarette e-Cigarette/Vaping Use: Never Used Second Hand Smoke Exposure: No Advance Directives: Yes Advance Directives on File: Yes Advance Directives Date on File: 08/04/23 service: No Current occupational status: retired Cognitive needs: No Hearing needs: Yes (hearing aide) Vision needs: Yes (Glasses) Physical Exam ED Vital Signs: Vital Signs - 24 hr 12/30/23 12:38 12/30/23 14:00 12/30/23 16:00 Temperature 97.4 F 97.4 F 98.6 F Pulse Rate 68 64 60 Respiratory Rate 16 11 L 14 Blood Pressure 108/62 133/64 151/65 H Pulse Oximetry 100 97 97 Oxygen Delivery Method Nasal Cannula Nasal Cannula Room Air Oxygen Flow Rate 2 BMI result Body Mass Index 23.4 Const Other: Old female who was awake and alert. She is quite frail and chronically ill looking. She looks weak but not any pain or respiratory distress. HENMT Other: Face is symmetrical. Mucous membranes moist. Eyes Other: Pupils are round equal, conjunctivae clear General: appearance normal, both eyes and all related structures Neck Neck: Yes no JVD Resp Other: Initially she seemed to have slight wheezes bilaterally but with ongoing deep breaths her wheezes cleared. She had no increased work of breathing, breath sounds were ultimately clear bilaterally. Cardio Rate: regular rate Rhythm: regular rhythm Heart sounds: S1 normal heart sound present and S2 normal heart sound present GI Other: The abdomen is soft and nontender Skin Other: Skin is pale and dry Neuro Other: The patient is awake and alert and oriented and appropriate. She seems frail and somewhat deconditioned but mental status seems clear. Cranial nerves seem intact. She moves her extremities symmetrically. She was able to walk with a walker. Extrem Other: No calf swelling or tenderness Medications Administered Discontinued Medications Generic Name Dose Route Start Last Admin Trade Name Freq PRN Reason Stop Dose Admin Lactated Ringer's 500 mls @ 999 mls/hr 12/30/23 15:00 12/30/23 16:47 Lr IV 12/30/23 15:30 Infused .Q31M BRENT Infusion Medical Decision Making Medical Decision Making MDM Narrative: The patient is a chronically frail 78-year-old who was on home oxygen. She describes having had diarrhea over the last 2 days although she is not having diarrhea here in the emergency room. Her workup in the emergency room is unremarkable. She was given 500 mL of crystalloid. She seems frail and her family called and spoke with a nurse requesting that the patient be kept in the emergency room for physical therapy and case management evaluation. Given her unremarkable workup I did not feel there was an indication for hospitalization. I spoke to the patient about staying in the emergency room for evaluation by physical therapy and case management. The patient is not interested in staying in the emergency room and would much rather go home. She says that she already has visiting nurses and physical therapist who come to her home. I asked the nurse to perform a trial of ambulation with a walker. The patient was able to walk steadily with a walker. I attempted to contact the patient's son Alexander Galnido at [phone]. I reached his answering machine and left a message asking him to call the emergency room. At this point I am setting the patient up to be discharged assuming her family ultimately picked her up from the emergency department. She does not seem to have any other way home. She does not have a phone and can not call them herself. The oncoming emergency physician is aware that the plan is for the patient to be discharged although the family has not yet weighed in on this. Lab Data 12/30/23 13:59 12/30/23 13:59 Labs: Lab Results 12/30/23 Range/Units 13:59 WBC 7.6 (4.8-10.8) X10*3/uL RBC 4.89 (4.20-5.50) X10*6/uL Hgb 13.4 (12.0-16.0) g/dl Hct 41.8 (37.0-47.0) % MCV 85.5 (80.0-98.0) fL MCH 27.4 (27.0-33.0) pg MCHC 32.1 (31.0-35.0) g/dl RDW 13.8 (11.0-16.0) % Plt Count 227 D (160-400) X10*3/uL MPV 11.0 (9.4-12.3) fL Immature Gran % (Auto) 0.3 (0.0-0.4) % Neut % (Auto) 79.2 H (45-73) % Lymph % (Auto) 11.6 L (20-40) % [place] % (Auto) 7.4 (2-11) % Eos % (Auto) 1.1 (0-4) % Baso % (Auto) 0.4 (0-2) % Lymph # (Auto) 0.9 L (1.2-4.9) X10*3/uL [place] # (Auto) 0.6 (0.1-1.2) X10*3/uL Eos # (Auto) 0.1 (0.0-0.4) X10*3/uL Baso # (Auto) 0.0 (0.0-0.2) X10*3/uL Abs Immat Gran (auto) 0.02 (0.00-0.03) X10*3/uL Absolute Neuts (auto) 6.0 (2.0-8.3) x10*3/uL Absolute Nucleated RBC 0.000 (0.0-0.012) X10*3/uL Nucleated RBC % (auto) 0.0 (0.0-0.2) /100WBC Sodium 141 (135-145) mmol/L Potassium 4.6 (3.3-5.1) mmol/L Chloride 108 (96-108) mmol/L Carbon Dioxide 27 (22-29) mmol/L Anion Gap 11 L (12-20) BUN 16 (9-16) mg/dL Creatinine 0.76 (0.5-1.4) mg/dL Estim Creat Clear Calc 45.2 Estimated GFR > 60 Random Glucose 91 (60-115) mg/dL Calcium 9.3 (8.4-10.2) mg/dL Total Bilirubin 0.5 (0.0-1.0) mg/dL AST 20 (5-31) U/L ALT 8 (0-31) U/L Alkaline Phosphatase 76 (39-117) U/L Troponin I High Sens < 2.7 (<3.5-17.0) ng/L C-Reactive Protein 0.53 H (< or = 0.50) mg/dL B-Natriuretic Peptide 23 (<100) pg/mL Total Protein 7.1 (6.5-8.0) g/dL Albumin 3.8 (3.5-5.0) g/dL COVID-19 ([facility]) Negative (Negative) COVID-19 Clin Com See Note Independent Interpretation I performed an independent interpretation of an: EKG Interpretation: EKG at 13:26 shows normal sinus rhythm at 66 beats per minute and is an unremarkable EKG. No acute changes. No change from previous. Discharge Plan Discharge Clinical Impression: Weakness, Near syncope Patient Disposition: Still a Patient Additional Instructions: Please continue your regular medications. Please be very careful when changing positions and moving around. Please follow up soon with your regular doctor. Return to the emergency room if you feel significantly worse. Prescriptions: No Action amlodipine 10 mg tablet 10 mg PO DAILY Qty: 90 3RF simvastatin 20 mg tablet 20 mg PO BEDTIME 90 Days Qty: 90 2RF levothyroxine 112 mcg tablet 112 mcg PO DAILY 90 Days Qty: 90 3RF omeprazole 20 mg capsule,delayed release(DR/EC) 20 mg PO DAILY Qty: 90 1RF sertraline 50 mg tablet 50 mg PO DAILY Qty: 90 0RF levetiracetam 500 mg tablet 500 mg PO BID cetirizine 10 mg capsule 10 mg PO BEDTIME fluticasone propion-salmeterol 250-50 mcg/dose blister with device 1 ea INHALATION BID albuterol sulfate 90 mcg/actuation HFA aerosol inhaler 2 puff INHALATION Q6H PRN (Reason: wheezing) memantine 5 mg tablet 5 mg PO BID acetaminophen [Tylenol] 325 mg capsule 325 mg PO Q4H PRN (Reason: pain) Qty: 30 0RF (DME) blood pressure monitor [Blood Pressure Kit] Kit See Rx Instructions .ROUTE .MEDSUPPLY Qty: 1 0RF Rx Instructions: As directed (DME) POCKET CHAMBER Spacer See Rx Instructions .Route Qty: 1 0RF Rx Instructions: As directed Referrals: Po,Shane Miller MD [Primary Care Provider] - (Generalized weakness ) Print Language: Khmer
[2023-12-30 14:20] LABS: COVID-19 Test Negative (Negative); IDNOW Serial# 152EDE1D
[2023-12-30 14:36] LABS: Alanine Aminotransferase 8 U/L (0-31); Albumin Level 3.8 g/dL (3.5-5.0); Alkaline Phosphatase 76 U/L (39-117); Anion Gap 11 (12-20); Aspartate Amino Transferase 20 U/L (5-31); Bilirubin Total 0.5 mg/dL (0.0-1.0); Blood Urea Nitrogen 16 mg/dL (9-16); Calcium 9.3 mg/dL (8.4-10.2); Carbon Dioxide 27 mmol/L (22-29); Chloride 108 mmol/L (96-108); Creatinine Clr Calc Pharmacy 45.2; Estimated Glomerular Filt Rate > 60; Glucose Random 91 mg/dL (60-115); Potassium 4.6 mmol/L (3.3-5.1); Sodium 141 mmol/L (135-145); Total Protein 7.1 g/dL (6.5-8.0)
[2023-12-30 14:57] LABS: C Reactive Protein 0.53 mg/dL (< or = 0.50)
[2023-12-30] MEDS: Lactated Ringers 500 ML 999 ML IV (15:10)
[2023-12-30 15:41] LABS: Troponin-I High Sensitivity < 2.7 ng/L (<3.5-17.0)
[2023-12-30 15:43] LABS: B Type Natriuretic Peptide 23 pg/mL (<100)
[2023-12-30 16:00] VITALS: BP 151/65; PULSE 60; RESP 14; TEMP 37; O2SAT 97
--- NOTE | 2023-12-30 17:21 | PC.NURSE ---
patient ambulated with steady gait to the bathroom with a walker
[2023-12-30 18:00] VITALS: BP 135/63; PULSE 71; TEMP 37; O2SAT 98
[2023-12-30 18:39] VITALS: BP 135/63; PULSE 71; RESP 14; TEMP 37; O2SAT 98
== END 2023-12-30 18:40 | disposition home or self-care (01) ==
PROVIDERS: Emergency Medicine; Emergency Provider Emergency Medicine Emergency Medical Services; PCP Internal Medicine
DX: R55 Syncope and collapse (principal); R11.0 Nausea; R19.7 Diarrhea, unspecified; R06.02 Shortness of breath; Z79.899 Other long term (current) drug therapy; Z11.52 Encounter for screening for COVID-19
CPT/HCPCS: 80053; 83880; 84484; 85025; 86140; 87635; 93005; 96360; 96361; 99284; J7120

== ENCOUNTER 2024-02-16 10:24 | Outpatient (AMB) | payer MEDICARE, SELFPAY ==
[2024-02-16 10:35] VITALS: BP 132/72; PULSE 73; O2SAT 84; BMI 22.7
--- NOTE | 2024-02-16 10:35 | A.OFFVIS_ITS ---
Vital Signs 02/16/24 10:35 Height 5 ft 1 in Weight 120 lb 2.431 oz BMI 22.7 BP 132/72 Blood Pressure Location Rt brachial Position Sitting Pulse 73 Pulse Source Doppler Pulse Oximetry (%) 84 L Oxygen Delivery Method Room Air Intake Visit Reasons: COPD Intake Note: Patient is here to follow up on COPD, reports no changes. Patient on 2L o2 at home. Pulse ox today is 88 (reports pulse ox result not accurate, hands are cold) Allergies amoxicillin [AMOXICILLIN] Allergy (Intermediate, Verified 02/16/24 10:59) STOMACH ISSUES pollen extracts [POLLEN] Allergy (Mild, Verified 02/16/24 10:59) RUNNY NOSE, SNEEZING, ITCHY EYES Medication List - Last Reconciled 02/16/24 by Andrew Menendez MD acetaminophen (Tylenol) 325 mg PO Q4H PRN albuterol sulfate 90 mcg/actuation 2 puffs inhalation Q6H PRN amlodipine 10 mg PO DAILY blood pressure monitor (Blood Pressure Kit) As directed cetirizine 10 mg PO BEDTIME inhalational spacing device (POCKET CHAMBER spacer) As directed levetiracetam 500 mg PO BID levothyroxine 112 mcg PO DAILY 90 days memantine 5 mg PO BID omeprazole 20 mg PO DAILY sertraline 50 mg PO DAILY simvastatin 20 mg PO BEDTIME 90 days Do you need a note to return to daycare/school/sports/work: No HPI HPI COPD: Details: This 78 years old female is here accompanied by her son . She has been very stable in the last 6 months without any acute exacerbation. She has actually stopped using Advair and needs to use the albuterol only once in a while. Denies any cough or expectoration and also denies any wheezing. She walks slow with a cane and thus there is no significant shortness of breath on exertion. She does have history of nocturnal hypoxemia and uses O2 2 L/minute at night and only p.r.n. during the daytime. [facility] Medical History Nocturnal hypoxemia Acute rhinosinusitis Microscopic hematuria Renal cyst Osteoarthritis, knee COPD (chronic obstructive pulmonary disease) Acute and chronic respiratory failure with hypoxia COPD exacerbation LFT elevation Shortness of breath Rash Bilateral knee pain Hematuria Frequent falls Left-sided back pain Seizure disorder Allergic rhinitis Generalized abdominal pain Anemia Initial Medicare annual wellness visit Screening for osteoporosis Hypoxemia Anemia Syncope Nausea Chronic diarrhea Diarrhea Bile salt-induced diarrhea Cutaneous lupus erythematosus Osteoarthritis Hypertension Vitamin D deficiency COPD (chronic obstructive pulmonary disease) Ford's esophagus GERD (gastroesophageal reflux disease) Hypothyroid Surgical History History of cataract surgery History of rectal surgery History of ear surgery History of cholecystectomy History of eye surgery Family History Father Lymphoma Lung cancer Mother Hypertension Diabetes Sister Brain cancer Social History Household Members: Family Household Members Other:: son, his and their 2 kids Housing: House Do you presently have visiting nurse or other home services: No Alcohol intake: former Patient Tobacco Use Status: Former Tobacco user Tobacco use type: Cigarette e-Cigarette/Vaping Use: Never Used Second Hand Smoke Exposure: No Advance Directives Date on File: 08/04/23 service: No Current occupational status: retired Cognitive needs: No Hearing needs: Yes (hearing aide) Vision needs: Yes (Glasses) Review of Systems Const All systems reviewed & are unremarkable except as noted in HPI and below Eyes Reports no additional complaints ENT Reports nasal congestion (Mild off and) Card Denies chest pain, Denies irregular heart rhythm and Denies leg edema Resp Reports as per HPI GI Reports heartburn (GERD symptoms controlled with med) Reports no additional complaints Musc Reports no additional complaints Skin/Breast Reports system reviewed and no additional complaints, except as documented Neuro Reports no additional complaints Psych Reports no additional complaints Endo Reports no additional complaints Physical Exam Vital Signs: Last Vital Signs Pulse 73 02/16/24 10:35 BP 132/72 02/16/24 10:35 Pulse Ox 84 L 02/16/24 10:35 Oxygen Delivery Method Room Air 02/16/24 10:35 BMI result Body Mass Index 22.7 Const General: comfortable, no acute distress, alert and awake Orientation/consciousness: patient oriented x3 HEENT Head: Yes normal to inspection General nose exam: No nasal polyps present, No nasal discharge present and Other nasal findings present (Marked nasal congestion on both sides with hypertrophy of the turbinates ) Face and sinus: Yes sinuses nontender Mouth: oropharynx normal Throat: Yes posterior oropharynx normal Eyes General: appearance normal, both eyes and all related structures Neck Neck: Yes normal visual inspection, Yes no lymphadenopathy, Yes trachea midline and Yes no JVD Thyroid: Thyroid normal Chest Chest palpation & inspection: normal inspection of the chest, normal palpation of entire chest wall and no tenderness Resp Other: Percussion note resonant, breath sounds are slightly distant with prolonged expiratory phase. NO WHEEZES CREPITATIONS OR RHONCHI ARE HEARD TODAY. Cardio Palpation: normal PMI Rate: regular rate Rhythm: regular rhythm Heart sounds: no gallops and no murmurs GI Palpation (GI): Soft to palpation, nontender, No hepatosplenomegaly present and no masses Auscultation: normal bowel sounds Back/Spine/Pelvis Thoracic/Lumbar Spine: thoracic and lumbar spine normal to inspection Skin General skin exam: no rashes or lesions noted and other (Hands are cold, due to chronic Raynaud syndrome) Neuro General: patient oriented x3 and no focal motor deficits Cranial nerves: Yes CN's II-XII intact bilaterally Extrem General: Yes normal to inspection, Yes no clubbing, cyanosis or edema and Yes no calf tenderness Psych Appearance: grossly normal and well kempt Speech and movement: Normal speech and movement present Assessment & Plan Assessment & Plan (1) COPD (chronic obstructive pulmonary disease): Comment: Clinically she does have chronic obstructive pulmonary disease. Moderately severe and well controlled at this time. She has had no acute exacerbation. She has stopped using Advair. Code(s): J44.9 - Chronic obstructive pulmonary disease, unspecified Category: Medical Plan: OK to use albuterol 2 puffs Q 4-6 hours only p.r.n. May use O2 2 L/minute p.r.n. during the daytime if she feels short of breath (2) Nocturnal hypoxemia: Comment: She is known to have nocturnal hypoxemia and also has intermittent exercise induced hypoxemia during the daytime. Code(s): G47.34 - Idiopathic sleep related nonobstructive alveolar hypoventilation Category: Medical Plan: Continue O2 2 L/minute at night. Use O2 2 L/minute p.r.n. for shortness of breath during the daytime. Coding Level of Care Code Est Pt Level 3 (60960) Diagnoses COPD (chronic obstructive pulmonary disease) J44.9 Nocturnal hypoxemia G47.34
== END 2024-02-16 10:59 | disposition home or self-care (01) ==
PROVIDERS: PCP Internal Medicine; Visit Provider Internal Medicine
DX: J44.9 Chronic obstructive pulmonary disease, unspecified (principal); G47.34 Idiopathic sleep related nonobstructive alveolar hypoventilation
CPT/HCPCS: 99213

== ENCOUNTER → 2024-02-16 10:24 | Outpatient (BNVA) | payer MEDICARE, SELFPAY | PROVIDERS: PCP Internal Medicine; Visit Provider Internal Medicine | DX: J44.9 Chronic obstructive pulmonary disease, unspecified (principal); G47.34 Idiopathic sleep related nonobstructive alveolar hypoventilation; Z99.81 Dependence on supplemental oxygen | CPT/HCPCS: 99212 ==

== ENCOUNTER 2024-04-06 15:21 | Emergency (ER) | payer MEDICARE, SELFPAY ==
[2024-04-06 15:47] VITALS: PULSE 75; O2SAT 98
[2024-04-06 15:48] VITALS: BP 149/61; PULSE 58; RESP 18; TEMP 37.1; O2SAT 100; BMI 21.8
--- OUTSIDE RECORDS SUMMARY | 2024-04-06 16:27 | XMS_ITS ---
Author Organization [facility] Address [address] [place] [address] Care Team Providers Care Actuarial Technician Name Role Phone Shane Nelson MD Primary Care Provider Juan R Almaraz [phone] REASON FOR VISIT Pt no showed Encounters Encounter Location Date Provider Diagnosis [facility] [address] [place] [address] 03/12/2023 Juan R Lang PLAN OF TREATMENT No Information
--- OUTSIDE RECORDS SUMMARY | 2024-04-06 16:27 | XMS_ITS | Patient Health Record ---
Author Organization [facility] Address [address] [place] [address] Care Team Providers Care Nutrition Specialist Name Role Phone Po Shane CARLSON Primary Care Provider Juan R Almaraz [phone] ALLERGIES Allergen (clinical drug ingredient) Drug/Non Drug Allergy documented on EMR Reaction Allergy Type Onset Date Status amoxicillin Amoxicillin Unknown Drug Allergy Act dom REASON FOR REFERRAL No Information MEDICATIONS Medication SIG (Take, Route, Frequency, Duration) Notes Start Date End Date Status PriLOSEC 20mg Active Vitamin D Active Vitamin B 12 Active Calcium 500 MG 1 tablet with meals Orally Twice a day for 30 day(s) Active amLODIPine Besylate Active Diphenoxylate-Atropine 2.5-0.025 MG TAKE 1 TO 2 TABLETS BY MOUTH EVERY MORNING AND EVERY AFTERNOON THEN TAKE 1 TO 2 TABLETS BY MOUTH TWICE DAILY for 15 01/23/2024 Active Imodium A-D 2 MG 1 tablet Orally 8 time(s) a day PRN Active Levothyroxine Sodium 100mcg Active Cyclobenzaprine HCl 5 MG TAKE 1 TABLET B Y MOUTH AT BEDTIM,E Oral for 14 Active Spiriva HandiHaler A ctive Lomotil 2.5-0.025 MG 1 or 2 PO Q 4-6 tc rs as needed for diarrhea for 30 days 12/07/2020 Active ProAir HFA 108mcg Ac tive Symbicort 160-4.5mcg Active Cholestyramine 4 GM/DOSE 1 scoop Orally Once or Twice a day for diarrhea--mix in water or OJ for 30 day(s) 01/31/2015 Not-Taking [facility] Stomach Relief A ctive Sertraline HCl 25mg Active Donepezil HCl Active Simvastatin 20mg Act dom metroNIDAZOLE Active IMMUNIZATIONS Vaccine Route Administration Date Status Comme nts Flu vaccine no Preserv 3 and > Unknown 01/05/2015 Admin istered Influenza Unknown 12/07/2019 Administered Influenza Unknown 01/04/2021 Administered SOCIAL HISTORY Sex Assigned At : Social History Observation Description Sex Assigned At Unknown PROBLEMS Problem Type ICD Code Onset Dates Problem Status W/U Status Risk SNOMED Code Notes Problem Gastro-esophageal reflux disease without esophagitis (K21.9) Active confirmed 071068883 Problem Diarrhea (R19.7) Active confirmed 98454 008 Problem Weight loss (R63.4) Active confirmed 89 850903 Problem Ford's esophagus without dysplasia (K22.70) Active confirmed 225495411 Problem Hx of adenomatous colonic polyps (Z86.010) Active confirmed 477166757 Problem Gastroesophageal reflux (K21.9) Active confirmed Esophageal reflux finding (024500862) Problem Diverticulosis of sigmoid colon (K57.30) Active confirmed Diverticulosis of sigmoid colon (853225435) PLAN OF TREATMENT Pending Test Test Name Order Date CHEM 7 PROFILE 12/07/2020 TSH (THYROID STIMULATING HORMONE) 2020 CRP 12/07/2020 CBC w DIFF 12/07/2020 SED RATE (ESR) 12/07/2020 CELIAC PANEL #10 12/07/2020 STOOL WBC 12/07/2020 C DIFFICILE RFLX PCR 12/07/2020 Future Test Test Name Order Date UPPER GI ENDOSCOPY 01/31/2015 COLONOSCOPY 01/31/2015 UPPER GI ENDOSCOPY 12/07/2020 COLONOSCOPY 12/07/2020 Insurance Providers Payer Name Payer Address Payer Phone Subscriber Number Group Number Insured Name Patient Relationship to Insured Coverage Start Date Coverage End Date MEDICARE OF [place] [address] [place] [address] [id number] ALPESH BOTELLO Self - patient is the insured MEDEX ATTN CLAIMS [address] [place] [address] [id number] ALPESH BOTELLO Self - patient is the insured MEDICAL (GENERAL) HISTORY Medical History History ICD Code Ford's esophagus- EGD in 04/2008-negative duodenal biopsies for celiac disease at that time Hypothyroidism COPD Denies OH,DM,CVA,renal disease Negative colonoscopy in 05/[address] Smith Hyperlipidemia Depression/anxiety EGD in 09/2011 showed the Ford's, but biopsies neg. 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 EGD 04/2015--no Ford's, no esophagitis , moderate-sized HH Colonoscopy 04/2015--small tu bular adenoma, no IBD, no microscopic colitis, sigmoid diverticulosis CT scan of abdomen was negative, includi ng the pancreas, in November of 2020 EGD in 12/2020 revealed a sma ll hiatal hernia and nonbleeding angiodysplasias of the duodenum; duodenal biopsies were negative for celiac disease as were her celiac disease laboratories, biopsies from the esophagus were negative for Ford's esophagus and there was no esophagitis Colonoscopy in 12/2020 reveal ed a small tubular adenoma that was removed, the biopsies from the ileum and colon were negative for any sign of microscopic colitis or Crohn disease Osteoporosis Microcytic anemia with hemog lobin of 10.7 in June of 2021--she had the above GI workup in 2020 with the finding of some angiodysplasias in the duodenum Surgical History Surgery Date(Month/Year) Cholecystectomy in her 30's Overlapping anal sphincterop lasty and excision of anal mucosa prolapse by Dr. Smith for fecal incontinence 2007 Eyelids Ear x 5 Sinus
--- OUTSIDE RECORDS SUMMARY | 2024-04-06 16:27 | XMS_ITS ---
Author Organization [facility] Address [address] [place] [address] Care Team Providers Care Skills Auditor Name Role Phone Shane Nelson MD Primary Care Provider Juan R Almaraz [phone] REASON FOR VISIT Patient presents today for gerd Encounters Encounter Location Date Provider Diagnosis [facility] [address] [place] [address] 03/12/2023 Juan R Lang PLAN OF TREATMENT No Information
[2024-04-06 16:43] VITALS: BP 174/72; PULSE 62; RESP 16; TEMP 36.5; O2SAT 100
--- NOTE | 2024-04-06 16:57 | ED.GENADULT ---
HPI - General Adult General Chief complaint: General Medical Stated complaint: ABD PAIN,DIARRHEA,UNABLE TO EAT/DRINK PER EMS Time Seen by Provider: 04/06/24 16:17 Source: patient Mode of arrival: EMS Limitations: no limitations History of Present Illness ED Provider: HPI narrative: Patient is 78 years old with history of hypertension COPD on 2 L of home oxygen seizure disorder IBS and GERD comes here for having diarrhea since last night multiple showed with diffuse abdominal cramps no fever no chills nausea no vomiting no other family member sick no recent antibiotic use patient also noticed for last 1 week inflamed right eye with purulent discharge Related Data Home Medications ?Medication ?Instructions ?Recorded ?Confirmed levetiracetam 500 mg tablet 500 mg PO BID 07/31/23 02/16/24 albuterol sulfate 90 mcg/actuation 2 puff inhalation Q6H PRN wheezing 11/08/23 02/16/24 aerosol inhaler memantine 5 mg tablet 5 mg PO BID 11/08/23 02/16/24 Previous Rx's ?Medication ?Instructions ?Recorded blood pressure monitor (Blood #1 ea 05/06/22 Pressure Kit) levothyroxine 112 mcg tablet 112 mcg PO DAILY 90 days #90 tabs 07/28/23 inhalational spacing device #1 ea 08/18/23 (POCKET CHAMBER spacer) omeprazole 20 mg capsule,delayed 20 mg PO DAILY #90 caps 10/22/23 release acetaminophen 325 mg capsule 325 mg PO Q4H PRN pain #30 caps 11/10/23 (Tylenol) cetirizine 10 mg capsule 10 mg PO BEDTIME Allergy Symptoms 01/23/24 #90 caps sertraline 50 mg tablet 50 mg PO DAILY #90 tabs 02/15/24 amlodipine 10 mg tablet 10 mg PO DAILY #90 tabs 03/17/24 simvastatin 20 mg tablet 20 mg PO BEDTIME 90 days #90 tabs 03/19/24 tobramycin 0.3 % eye drops 2 drp ophthalmic (eye) Q4H #5 mL 04/06/24 Allergies Allergy/AdvReac Type Severity Reaction Status Date / Time amoxicillin [AMOXICILLIN] Allergy Intermediate STOMACH Verified 04/06/24 15:50 ISSUES pollen extracts [POLLEN] Allergy Mild RUNNY Verified 02/16/24 10:59 NOSE, SNEEZING, ITCHY EYES Review of Systems Review of Systems: Yes all other systems are reviewed and are negative PMFSH Past Medical History Medical History Nocturnal hypoxemia Acute rhinosinusitis Microscopic hematuria Renal cyst Osteoarthritis, knee COPD (chronic obstructive pulmonary disease) Acute and chronic respiratory failure with hypoxia COPD exacerbation LFT elevation Shortness of breath Rash Bilateral knee pain Hematuria Frequent falls Left-sided back pain Seizure disorder Allergic rhinitis Generalized abdominal pain Anemia Initial Medicare annual wellness visit Screening for osteoporosis Hypoxemia Anemia Syncope Nausea Chronic diarrhea Diarrhea Bile salt-induced diarrhea Cutaneous lupus erythematosus Osteoarthritis Hypertension Vitamin D deficiency COPD (chronic obstructive pulmonary disease) Ford's esophagus GERD (gastroesophageal reflux disease) Hypothyroid Surgical History History of cataract surgery History of rectal surgery History of ear surgery History of cholecystectomy History of eye surgery Family History Family History Father Lymphoma Lung cancer Mother Hypertension Diabetes Sister Brain cancer Social History Social History Household Members: Family Household Members Other:: son, his and their 2 kids Housing: House Do you presently have visiting nurse or other home services: No Alcohol intake: former Patient Tobacco Use Status: Former Tobacco user Tobacco use type: Cigarette Smoked in Last 30 Days: No e-Cigarette/Vaping Use: Never Used Second Hand Smoke Exposure: No Advance Directives: Yes Advance Directives on File: Yes Advance Directives Date on File: 08/04/23 service: No Current occupational status: retired Cognitive needs: No Hearing needs: Yes (hearing aide) Vision needs: Yes (Glasses) Physical Exam ED Vital Signs: Vital Signs - 24 hr 04/06/24 15:48 04/06/24 16:43 Temperature 98.7 F 97.7 F Pulse Rate 58 62 Respiratory Rate 18 16 Blood Pressure 149/61 H 174/72 H Pulse Oximetry 100 100 Oxygen Delivery Method Nasal Cannula Room Air BMI result Body Mass Index 21.8 Appearance: Alert. Oriented X3. No acute distress. Eyes: Right conjunctiva inflamed no discharge ENT: Pharynx normal. Oral Mucosa moist Neck: Normal inspection. Neck supple. CVS: Normal heart rate and rhythm. Pulses normal. Respiratory: No respiratory distress. Equal air entry bilateral, no wheezing/rales/rhonchi Abdomen: Soft and nontender. Bowel sounds are present, no mass palpable, no CVA tenderness Skin: Skin warm and dry. Normal skin color. Normal skin turgor. Extremities: No lower extremity edema. No calf tenderness Neuro: Oriented X 3. No motor deficit. No sensory deficit.No cerebellar signs , cranial nerves II-XII intact Medications Administered Discontinued Medications Generic Name Dose Route Start Last Admin Trade Name Freq PRN Reason Stop Dose Admin Sodium Chloride 1,000 mls @ 999 mls/hr 04/06/24 17:16 04/06/24 17:54 Ns IV 04/06/24 18:16 999 mls/hr .Q1H1M ONE Administration Medical Decision Making Medical Decision Making [facility] Narrative: Patient with acute diarrhea likely viral/Clostridium perfringens during stay in the ER no bowel movements patient's initial potassium was 5.7 without any treatment repeat potassium level was 4.7 patient is feeling much better at this time had food and p.o. fluids in the ER will discharge patient home Differential Diagnosis Differential Diagnoses: The differential diagnosis associated with the presentation includes Admission/Observation Consideration of admission/observation: Escalation of care including admission/observation considered Lab Data [facility] Lab Attestation statement: I reviewed the patient's lab results. 04/06/24 17:52 04/06/24 19:27 Labs: Lab Results 04/06/24 04/06/24 Range/Units 17:52 19:27 WBC 7.9 (4.8-10.8) X10*3/uL RBC 5.32 (4.20-5.50) X10*6/uL Hgb 14.7 (12.0-16.0) g/dl Hct 45.8 (37.0-47.0) % MCV 86.1 (80.0-98.0) fL MCH 27.6 (27.0-33.0) pg MCHC 32.1 (31.0-35.0) g/dl RDW 14.2 (11.0-16.0) % Plt Count 207 (160-400) X10*3/uL MPV 11.8 (9.4-12.3) fL Immature Gran % (Auto) 0.4 (0.0-0.4) % Neut % (Auto) 87.0 H (45-73) % Lymph % (Auto) 8.1 L (20-40) % [place] % (Auto) 3.9 (2-11) % Eos % (Auto) 0.3 (0-4) % Baso % (Auto) 0.3 (0-2) % Lymph # (Auto) 0.6 L (1.2-4.9) X10*3/uL [place] # (Auto) 0.3 (0.1-1.2) X10*3/uL Eos # (Auto) 0.0 (0.0-0.4) X10*3/uL Baso # (Auto) 0.0 (0.0-0.2) X10*3/uL Abs Immat Gran (auto) 0.03 (0.00-0.03) X10*3/uL Absolute Neuts (auto) 6.9 (2.0-8.3) x10*3/uL Absolute Nucleated RBC 0.000 (0.0-0.012) X10*3/uL Nucleated RBC % (auto) 0.0 (0.0-0.2) /100WBC Sodium 141 143 (135-145) mmol/L Potassium 5.7 H D 4.7 (3.3-5.1) mmol/L Chloride 112 H 112 H (96-108) mmol/L Carbon Dioxide 20 L 22 (22-29) mmol/L Anion Gap 15 14 (12-20) BUN 17 H 16 (9-16) mg/dL Creatinine 0.96 0.82 (0.5-1.4) mg/dL Estim Creat Clear Calc 35.8 41.9 Estimated GFR 56 > 60 Random Glucose 96 104 (60-115) mg/dL Calcium 9.6 8.6 D (8.4-10.2) mg/dL Magnesium 1.9 (1.6-2.6) mg/dL Total Bilirubin 0.4 (0.0-1.0) mg/dL AST 36 H (5-31) U/L ALT 15 (0-31) U/L Alkaline Phosphatase 80 (39-117) U/L Total Protein 8.1 H (6.5-8.0) g/dL Albumin 4.1 (3.5-5.0) g/dL COVID-19 (SENA) Negative (Negative) COVID-19 Clin Com See Note Discharge Plan Discharge Clinical Impression: Diarrhea, Conjunctivitis Patient Disposition: Home, Self-Care Instructions: Acute Diarrhea (ED), Conjunctivitis (ED) Additional Instructions: Etiology of your diarrheas not clear likely viral/food induced Drink plenty of fluids Follow up with your PCP if not better For right eye conjunctivitis use eyedrops as provided Prescriptions: New tobramycin 0.3 % drops 2 drp ophthalmic (eye) Q4H Qty: 5 0RF No Action levothyroxine 112 mcg tablet 112 mcg PO DAILY 90 Days Qty: 90 3RF omeprazole 20 mg capsule,delayed release(DR/EC) 20 mg PO DAILY Qty: 90 1RF cetirizine 10 mg capsule 10 mg PO BEDTIME Qty: 90 0RF sertraline 50 mg tablet 50 mg PO DAILY Qty: 90 1RF amlodipine 10 mg tablet 10 mg PO DAILY Qty: 90 3RF simvastatin 20 mg tablet 20 mg PO BEDTIME 90 Days Qty: 90 2RF levetiracetam 500 mg tablet 500 mg PO BID albuterol sulfate 90 mcg/actuation HFA aerosol inhaler 2 puff INHALATION Q6H PRN (Reason: wheezing) memantine 5 mg tablet 5 mg PO BID acetaminophen [Tylenol] 325 mg capsule 325 mg PO Q4H PRN (Reason: pain) Qty: 30 0RF (DME) blood pressure monitor [Blood Pressure Kit] Kit See Rx Instructions .ROUTE .MEDSUPPLY Qty: 1 0RF Rx Instructions: As directed (DME) POCKET CHAMBER Spacer See Rx Instructions .Route Qty: 1 0RF Rx Instructions: As directed Print Language: Luxembourgish
[2024-04-06] MEDS: 0.9 % Sodium Chloride 1,000 ML 999 ML IV (17:54)
[2024-04-06 17:58] LABS: MANUAL DIFF FLAG NO
[2024-04-06 18:00] LABS: Basophils Percent Auto 0.3 % (0-2); Eosinophils Percent Auto 0.3 % (0-4); Hematocrit 45.8 % (37.0-47.0); Hemoglobin 14.7 g/dl (12.0-16.0); Imm Gran Abs Auto 0.03 X10*3/uL (0.00-0.03); Imm Gran Pct Auto 0.4 % (0.0-0.4); Lymphocytes Absolute Auto 0.6 X10*3/uL (1.2-4.9); Lymphocytes Percent Auto 8.1 % (20-40); Mean Corpuscular HGB Conc 32.1 g/dl (31.0-35.0); Mean Corpuscular Hemoglobin 27.6 pg (27.0-33.0); Mean Corpuscular Volume 86.1 fL (80.0-98.0); Mean Platelet Volume 11.8 fL (9.4-12.3); Monocytes Absolute Auto 0.3 X10*3/uL (0.1-1.2); Monocytes Percent Auto 3.9 % (2-11); Neutrophils Absolute Auto 6.9 x10*3/uL (2.0-8.3); Platelet Count 207 X10*3/uL (160-400); Red Blood Count 5.32 X10*6/uL (4.20-5.50); Red Cell Distribution Width 14.2 % (11.0-16.0); White Blood Count 7.9 X10*3/uL (4.8-10.8)
[2024-04-06 18:22] LABS: COVID-19 Test Negative (Negative); IDNOW Serial# 08D9AD1C
[2024-04-06 18:28] LABS: Alanine Aminotransferase 15 U/L (0-31); Albumin Level 4.1 g/dL (3.5-5.0); Alkaline Phosphatase 80 U/L (39-117); Anion Gap 15 (12-20); Aspartate Amino Transferase 36 U/L (5-31); Bilirubin Total 0.4 mg/dL (0.0-1.0); Blood Urea Nitrogen 17 mg/dL (9-16); Calcium 9.6 mg/dL (8.4-10.2); Carbon Dioxide 20 mmol/L (22-29); Chloride 112 mmol/L (96-108); Creatinine Clr Calc Pharmacy 35.8; Estimated Glomerular Filt Rate 56; Glucose Random 96 mg/dL (60-115); Magnesium 1.9 mg/dL (1.6-2.6); Potassium 5.7 mmol/L (3.3-5.1); Sodium 141 mmol/L (135-145); Total Protein 8.1 g/dL (6.5-8.0)
[2024-04-06 20:06] LABS: Anion Gap 14 (12-20); Blood Urea Nitrogen 16 mg/dL (9-16); Calcium 8.6 mg/dL (8.4-10.2); Carbon Dioxide 22 mmol/L (22-29); Chloride 112 mmol/L (96-108); Creatinine Clr Calc Pharmacy 41.9; Estimated Glomerular Filt Rate > 60; Glucose Random 104 mg/dL (60-115); Potassium 4.7 mmol/L (3.3-5.1); Sodium 143 mmol/L (135-145)
[2024-04-06 20:21] VITALS: BP 165/75; PULSE 70; RESP 18; O2SAT 99
--- NOTE | 2024-04-06 20:22 | MHC.EDTECH ---
pt unable to tolerate temperature for discharge vitals
[2024-04-06] MEDS: Tobramycin Sulfate 0.3% Sol Op 5 ML BTL 2 DROP EYE-RIGHT (20:26)
[2024-04-06 20:34] VITALS: BP 165/75; PULSE 70; RESP 18; TEMP 36.3; O2SAT 99
== END 2024-04-06 20:38 | disposition home or self-care (01) ==
PROVIDERS: Emergency Provider Internal Medicine; PCP Internal Medicine
DX: H10.9 Unspecified conjunctivitis (principal); J44.9 Chronic obstructive pulmonary disease, unspecified; R10.2 Pelvic and perineal pain; I10 Essential (primary) hypertension; R11.0 Nausea; Z99.81 Dependence on supplemental oxygen; Z87.891 Personal history of nicotine dependence; Z11.52 Encounter for screening for COVID-19; Z79.899 Other long term (current) drug therapy
CPT/HCPCS: 36415; 80048; 80053; 83735; 85025; 87635; 96360; 96361; 99284

== ENCOUNTER 2024-04-12 12:14 | Outpatient (AMB) | payer MEDICARE, SELFPAY ==
[2024-04-12 12:23] VITALS: BP 130/70; PULSE 52; O2SAT 98; BMI 22.1
--- NOTE | 2024-04-12 12:23 | A.OFFVIS_ITS ---
Intake Vital Signs 04/12/24 12:23 Height 5 ft 1 in Weight 117 lb BMI 22.1 BP 130/70 Blood Pressure Location Lt brachial Position Sitting Pulse 52 Pulse Source Pulse Oximeter Pulse Oximetry (%) 98 Oxygen Delivery Method Room Air Intake Visit Reasons: Wellness Allergies amoxicillin [AMOXICILLIN] Allergy (Intermediate, Verified 04/12/24 12:23) STOMACH ISSUES pollen extracts [POLLEN] Allergy (Mild, Verified 04/12/24 12:23) RUNNY NOSE, SNEEZING, ITCHY EYES Medication List - Last Reconciled 04/12/24 by Shane Nelson MD acetaminophen (Tylenol) 325 mg PO Q4H PRN albuterol sulfate 90 mcg/actuation 2 puffs inhalation Q6H PRN amlodipine 10 mg PO DAILY blood pressure monitor (Blood Pressure Kit) As directed cetirizine 10 mg PO BEDTIME inhalational spacing device (POCKET CHAMBER spacer) As directed levetiracetam 500 mg PO BID levothyroxine 112 mcg PO DAILY 90 days memantine 5 mg PO BID omeprazole 20 mg PO DAILY sertraline 50 mg PO DAILY simvastatin 20 mg PO BEDTIME 90 days tobramycin 0.3% 2 drps ophthalmic (eye) Q4H HPI Wellness HPI Details The patient is a 78-year-old female presenting with dementia-related issues. The patient?s son reports increasing confusion, particularly in understanding day and night, and trouble comprehending conversations. The patient has a history of dementia, which appears to be progressing as evidenced by forgetfulness and not recognizing when she uses the bathroom. She does not self-administer insulin for diabetes management and instead relies on her caregivers who do not provide 24-hour care. The patient?s appetite has also decreased, and she has episodes of nausea and upset stomach. Additionally, the patient experiences dizziness when going from sitting to standing, exacerbated by low blood pressure. She has a documented hearing loss, uses a hearing aid infrequently, and experiences visual impairments. She has a history of hypothyroidism managed with medication, a seizure disorder for which she takes Keppra, and hyperlipidemia. - Encouraged adequate hydration to preve nt dizziness. - Discussed the importance of regular me als over junk food to ensure proper nutrition. - Blood pressure monitoring advised due to fluctuations linked to postural changes. - Scheduled routine lab testing, includi ng a fasting lipid panel and a urine test to assess for infections. - Confirmed pneumonia and flu vaccinatio ns are up to date. - Recommended reducing blood pressure me dication due to orthostatic hypotension. - Discussed cholesterol control, with a previous reading below target levels. - Lives with her son and family, who ass ist with day-to-day care. - Social support from her [id number], who is a cert pharmacy tech. - Relies on Solange as a reminder for regu lar fluid intake. - Experiences confusion regarding time a nd sometimes refuses necessary medication or dietary recommendations. - Has a history of participation in [employer] indicating intermittent community involvement. - Neurological: Reports dizziness upon c hanging positions. - Gastrointestinal: Reports upset stomac h and episodes of nausea. - Genitourinary: Reports urinary inconti nence and accidents. - Musculoskeletal: Reports difficulty ge tting up from seated positions. - Sensory: Reports vision impairment and hearing loss. - Psychological: Reports confusion and f orgetfulness. - Labs: Fasting lipid panel discussed, w ith result being less than 130. - Imaging: CAT scan of the brain showing age-related shrinkage and ischemic changes reported. - A1c: 8.9 reported for diabetes mellitu s control. - Urine test is pending. [facility] Medical History Nocturnal hypoxemia Acute rhinosinusitis Microscopic hematuria Renal cyst Osteoarthritis, knee COPD (chronic obstructive pulmonary disease) Acute and chronic respiratory failure with hypoxia COPD exacerbation LFT elevation Shortness of breath Rash Bilateral knee pain Hematuria Frequent falls Left-sided back pain Seizure disorder Allergic rhinitis Generalized abdominal pain Anemia Initial Medicare annual wellness visit Screening for osteoporosis Hypoxemia Anemia Syncope Nausea Chronic diarrhea Diarrhea Bile salt-induced diarrhea Cutaneous lupus erythematosus Osteoarthritis Hypertension Vitamin D deficiency COPD (chronic obstructive pulmonary disease) Ford's esophagus GERD (gastroesophageal reflux disease) Hypothyroid Surgical History History of cataract surgery History of rectal surgery History of ear surgery History of cholecystectomy History of eye surgery Family History Father Lymphoma Lung cancer Mother Hypertension Diabetes Sister Brain cancer Social History Household Members: Family Household Members Other:: son, his and their 2 kids Housing: House Do you presently have visiting nurse or other home services: No Alcohol intake: former Patient Tobacco Use Status: Former Tobacco user Tobacco use type: Cigarette e-Cigarette/Vaping Use: Never Used Second Hand Smoke Exposure: No Advance Directives Date on File: 08/04/23 service: No Current occupational status: retired Cognitive needs: No Hearing needs: Yes (hearing aide) Vision needs: Yes (Glasses) Questionnaire Medicare Wellness Checkup [age] What gender do you identify with?: female During the past 4 weeks, how much have you been bothered by emotional problems such as feeling anxious, depressed, irritable, sad or downhearted, and blue?: not at all During the past 4 weeks, has your physical & emotional health limited your social activities with family, friends, neighbors, or groups?: not at all During the past 4 weeks, how much bodily pain have you generally had?: mild pain During the past 4 weeks, was someone available to help you if you needed & wanted help?: yes, as much as I wanted During the past 4 weeks, what was the hardest physical activity you could do for at least 2 minutes?: very light Can you get to places out of walking distance without help? (For eg., can you travel alone on buses, taxis or drive your car?): No Can you go shopping for groceries or clothes without someone's help?: No Can you prepare your own meals?: No Can you do your housework without help?: No Because of any health problems, do you need the help of another person with your personal care needs such as eating, bathing, dressing or getting around the house?: No Can you handle your own money without help?: No During the past 4 weeks, how would you rate your health in general?: fair During the past 4 weeks how have things been going for you?: good & bad parts about equal Are you having difficulties driving your car?: not applicable, I don't use a car Do you always fasten your seat belt when you are in a car?: yes, usually During past 4 weeks, have you been bothered by the following: never: Falling or dizzy when standing up, Sexual problems?, Trouble eating well?, Teeth or denture problems? and Problems using the telephone? and always: Tiredness or fatigue? Have you fallen 2 or more times in the past year?: Yes Are you afraid of falling?: Yes Are you a smoker?: no During the past 4 weeks, how many drinks of wine, beer, or other alcoholic beverages did you have?: no alcohol at all Do you exercise for about 20 minutes 3 or more times a week?: no, I usually do not exercise this much Have you been given information to help with the following?: no: Hazards in your house that might hurt you? and no: Keeping track of your medications? How often do you have trouble taking medicines the way you have been told to take them?: sometimes I take medicine as prescribed How confident are you that you can control & manage most of your health problems?: not very confident What is your race?: White PHQ-9 Over the last 2 weeks, how often have you been bothered by any of the following problems? 1. Little interest or pleasure in doing things: not at all 2. Feeling down, depressed, or hopeless: not at all 3. Trouble falling or staying asleep, or sleeping too much: not at all 4. Feeling tired or having little energy: not at all 5. Poor appetite or overeating: not at all 6. Feeling bad about yourself - or that you are a failure or have let yourself or your family down: not at all 7. Trouble concentrating on things, such as reading the newspaper or watching television: not at all 8. Moving or speaking so slowly that other people could have noticed. Or the opposite - being so fidgety or restless that you have been moving around a lot more than usual: not at all 9. Thoughts that you would be better off or of hurting yourself in some way: not at all Total score: 0 Depression Screening Interpretation: Negative Depression Screening Done: Yes Source: Developed by Drs. Juan R Pierre, Mary Kraft, Matti Flores and colleagues, with an educational benton from [employer]. Thrive Questionnaire Date Thrive assessed: 04/12/24 I am a: Patient What is your living situation today?: I have a steady place to live Within the past 12 months, did the food you bought not last and you didn't have the money to get more?: Never true Within the past 12 months, did you worry whether your food would run out before you got money to buy more?: Never true Do you have trouble paying for medicines?: No Do you have trouble getting transportation to medical appointments?: No Do you have trouble paying your heating and electricity bill?: No Do you have trouble taking care of your child, family member or friend?: No Do you have trouble with day-to-day activities such as bathing, preparing meals, shopping, managing finances, etc.?: No Are you currently unemployed and looking for a job?: No Are you interested in more education?: No Currently or been in a relationship where the following occur: No concerns reported THRIVE Score: 0 ANGELES-7 AMB Questionnaire ANGELES-7 Date ANGELES - 7 assessed: 04/12/24 Feeling nervous, anxious, or on edge: 0 = Not at all Not being able to stop or control worryin = Not at all Worrying too much about different things: 0 = Not at all Trouble relaxin = Not at all Being so restless that it is hard to sit still: 0 = Not at all Becoming easily annoyed or irritable: 0 = Not at all Feeling afraid as if something awful might happen: 0 = Not at all Total ANGELES-7 score (0-4 normal; 5-9 mild; 10-14 moderate; 15-21 severe): 0 Source: Developed by Drs. Juan R Pierre, Mary Kraft, Matti Flores and colleagues, with an educational benton from [employer]. ANGELES-7 Assessment Billing ANGELES-7 Assessment Tool: ANGELES-7 Assessment 17927 Review of Systems Const Denies poor appetite and Denies weakness Eyes Denies no additional complaints ENT Reports Normal hearing present, Denies dizziness, Denies nasal congestion, Denies tinnitus and Denies sore throat Card Denies chest pain, Denies syncope, Denies rapid heart rate and Denies dyspnea Resp Denies cough and Denies dyspnea GI Denies change in stool character, Reports constipation, Denies diarrhea, Denies nausea and Denies vomiting Denies urinary frequency, Denies difficulty voiding and Denies dysuria Neuro Reports Normal hearing present, Denies confusion, Denies dizziness, Denies syncope and Denies weakness Psych Denies confusion Physical Exam Vital Signs: Last Vital Signs Pulse 52 04/12/24 12:23 Pulse Ox 98 04/12/24 12:23 Oxygen Delivery Method Room Air 04/12/24 12:23 BMI result Body Mass Index 22.1 Const General: No confusion Orientation/consciousness: No confusion HEENT Head: Yes normocephalic Ears: external ears normal and TM's normal bilaterally Face and sinus: Yes normal facial exam Mouth: moist mucous membranes Throat: Yes tonsils normal Eyes Conjunctivae: conjunctivae normal Pupils: Equal, round and reactive pupils present and Pupil accommodation reflex normal Direct Ophthalmoscopy: normal light reflex Neck Neck: No lymphadenopathy Thyroid: Thyroid normal Chest Chest palpation & inspection: normal inspection of the chest Resp Effort & Inspection: normal respiratory effort and no audible wheezes Auscultation: clear to auscultation bilaterally, no crackles, no wheezes and lung sounds not diminished Cardio Rate: regular rate Rhythm: regular rhythm Peripheral pulses: radial pulses present and dorsalis pedis present GI Palpation (GI): no masses Auscultation: normal bowel sounds and normoactive bowel sounds Rectal Exam - Female: deferred Skin General skin exam: no rashes or lesions noted Rashes: no rashes Neuro General: No confusion Cranial nerves: Yes Equal, round and reactive pupils present and Yes Normal hearing present Cognition (Neuro): normal cognition Gait exam (Neuro): Normal gait present Motor exam (neuro): 5/5 motor strength present throughout Deep tendon reflexes (DTR's): Right brachioradialis reflex intensity grade: 2+, Left brachioradialis reflex intensity grade: 2+, Right patellar reflex intensity grade: 2+ and Left patellar reflex intensity grade: 2+ Extrem General: No edema Assessment & Plan Assessment & Plan (1) Medicare annual wellness visit, subsequent: Code(s): Z00.00 - Encounter for general adult medical examination without abnormal findings Plan: Patient is advised to eat healthy, keep well hydrated, keep active and have adequate sleep. (2) COPD (chronic obstructive pulmonary disease): Comment: Clinically she does have chronic obstructive pulmonary disease. Moderately severe and well controlled at this time. She has had no acute exacerbation. She has stopped using Advair. Code(s): J44.9 - Chronic obstructive pulmonary disease, unspecified Plan: Patient continues to follow-up with Pulmonary and this COPD is well controlled continue with the use of the albuterol as needed (3) Ford's esophagus: Code(s): K22.70 - Ford's esophagus without dysplasia Qualifiers: Ford's esophagus type: with low grade dysplasia Qualified Code(s): K22.710 - Ford's esophagus with low grade dysplasia Plan: Avoid the foods that causes that usually spicy foods, tomato products, juices, coffee, soda and foods that your sensitive to. After eating do not lie down, allow 3-4 hours before in lie down. And keep the head of bed above 30 degrees to avoid the acid from going up. (4) Hypothyroid: Code(s): E03.9 - Hypothyroidism, unspecified Qualifiers: Hypothyroidism type: acquired Qualified Code(s): E03.9 - Hypothyroidism, unspecified Plan: Continue with thyroid medication will need retesting of blood work (5) Hypertension: Code(s): I10 - Essential (primary) hypertension Qualifiers: Hypertension type: essential hypertension Qualified Code(s): I10 - Essential (primary) hypertension Plan: Continue with blood pressure medication. Decrease salt intake and exercise on amlodipine 10 mg once a day. (6) Cognitive impairment: Code(s): R41.89 - Other symptoms and signs involving cognitive functions and awareness Plan: Supportive management (7) Generalized anxiety disorder: Code(s): F41.1 - Generalized anxiety disorder Plan: Continue with present medication of sertraline (8) Age related osteoporosis: Comment: April 2021 osteoporosis spine Code(s): M81.0 - Age-related osteoporosis without current pathological fracture Plan: Reminded about bone density (9) Hypercholesterolemia: Code(s): E78.00 - Pure hypercholesterolemia, unspecified Plan: Avoid fried foods, chicken skin, eggs, butter margarine, pastries and meat. Be it pork or beef they have a lot of cholesterol patient takes simvastatin 20 mg at bedtime. Plan - Continue dementia management with current medications; refill Memantine. - Adjust blood pressure medication to address orthostatic hypotension, switch to 5 mg dosing. - - Encourage increased hydration to mitigate dizziness. - Perform routine blood and urine tests to check for infection and cholesterol control. - Discussed and planned cholesterol and cardiovascular health management. I discussed the progression of dementia and its symptoms with the patient's son. We talked about adjusting her medication to prevent dizziness, particularly reducing her blood pressure medication dose from 10 mg to 5 mg. Additionally, we covered managing her diabetes more effectively, considering insulin adjustment due to the lack of a 24-hour caregiver. The son was informed about the CAT scan results indicating brain shrinkage typical with aging and vascular changes and the A1c level of 8.9. I emphasized the importance of regular hydration and nutrition while avoiding junk food. We also discussed potential infection leading to urinary incontinence and the importance of maintaining cholesterol levels within target ranges. I recommended a follow-up visit to ensure management effectiveness in three months. - Take medications as described, with the new adjusted dosing for hypertension. - Ensure regular consumption of meals rich in nutrition instead of junk food. - Increase fluid intake, aiming for hydration every two hours. - Monitor for dizziness, especially when getting up; change positions slowly. - - Collect and provide a urine sample before leaving and for subsequent lab work. - Follow-up appointment scheduled in three months for further evaluation. - Contact the medical office with any new or worsening symptoms, or if immediate assistance is required. Medications: Changed From amlodipine 10 mg PO DAILY 90 tabs 3RF To amlodipine 5 mg PO DAILY 90 tabs 3RF From memantine 5 mg PO BID R41.89 - Other symptoms and signs involving cognitive functions and awareness To memantine 10 mg PO BID 180 tabs 2RF R41.89 - Other symptoms and signs involving cognitive functions and awareness Quality Reporting (2019) Depression/Bipolar (159/160/161/177) PHQ-9: Total score: 0 Coding Level of Care Code Medicare Subsequent (G0439) Diagnoses Medicare annual wellness visit, subsequent Z00.00 COPD (chronic obstructive pulmonary disease) J44.9 Ford's esophagus with low grade dysplasia K22.710 Ford's esophagus type: with low grade dysplasia Acquired hypothyroidism E03.9 Hypothyroidism type: acquired Essential hypertension I10 Hypertension type: essential hypertension Cognitive impairment R41.89 Generalized anxiety disorder F41.1 Age related osteoporosis M81.0 Hypercholesterolemia E78.00 Additional Codes ANGELES-7 Assessment Billing - ANGELES-7 Assessment Tool: ANGELES-7 Assessment 63094 ([id number])
--- OUTSIDE RECORDS SUMMARY | 2024-04-12 14:08 | XMS_ITS ---
Author Organization [facility] Address [address] [place] [address] Care Team Providers Care Principal Statistical Scientist Name Role Phone Shane Nelson MD Primary Care Provider Juan R Almaraz [phone] REASON FOR VISIT Patient presents today for gerd Encounters Encounter Location Date Provider Diagnosis [facility] [address] [place] [address] 03/12/2023 Juan R Lang PLAN OF TREATMENT No Information
--- OUTSIDE RECORDS SUMMARY | 2024-04-12 14:08 | XMS_ITS | Patient Health Record ---
Author Organization [facility] Address [address] [place] [address] Care Team Providers Care Torch Heater Name Role Phone Po Shane CARLSON Primary Care Provider Juan R Almaraz [phone] ALLERGIES Allergen (clinical drug ingredient) Drug/Non Drug [...] reflux disease without esophagitis (K21.9) Active confirmed [id number] Problem Diarrhea (R19.7) Active confirmed 12170 008 Problem Weight loss (R63.4) Active confirmed 89 248797 Problem Ford's esophagus without dysplasia (K22.70) Active confirmed 973937362 Problem Hx of adenomatous colonic polyps (Z86.010) Active confirmed 006972043 Problem Gastroesophageal reflux (K21.9) Active confirmed Esophageal reflux finding (400443252) Problem Diverticulosis of sigmoid colon (K57.30) Active confirmed Diverticulosis of sigmoid colon (087715377) PLAN OF TREATMENT Pending Test Test Name [...] [place] [address] [place] [address] [id number] ALPESH BOTELLO Self - patient is the insured [employer] CLAIMS [address] [place] [address] [id number] ALPESH BOTELLO Self - patient is the insured MEDICAL (GENERAL) HISTORY Medical History History ICD Code Ford's esophagus- EGD in 04/2008-negative duodenal biopsies for celiac disease at that time Hypothyroidism COPD Denies GA,DM,CVA,renal disease Negative colonoscopy in 05/[address] Smith Hyperlipidemia Depression/anxiety EGD in 09/2011 showed the Ford's, but biopsies neg. for dysplasia Lupus diagnosed in summer, 012-involving the skin-followed by a debt collection specialist EGD 04/2015--no Ford's, no esophagitis , moderate-sized [...]
== END 2024-04-12 13:20 | disposition home or self-care (01) ==
PROVIDERS: Visit Provider Internal Medicine
DX: Z00.00 Encounter for general adult medical examination without abnormal findings (principal); J44.9 Chronic obstructive pulmonary disease, unspecified; K22.710 Barrett's esophagus with low grade dysplasia; E03.9 Hypothyroidism, unspecified; I10 Essential (primary) hypertension; R41.89 Other symptoms and signs involving cognitive functions and awareness; F41.1 Generalized anxiety disorder; M81.0 Age-related osteoporosis without current pathological fracture; E78.00 Pure hypercholesterolemia, unspecified

== ENCOUNTER → 2024-04-12 12:14 | Outpatient (BNVA) | payer MEDICARE, SELFPAY | PROVIDERS: Visit Provider Internal Medicine | DX: Z00.00 Encounter for general adult medical examination without abnormal findings (principal); J44.9 Chronic obstructive pulmonary disease, unspecified; E03.9 Hypothyroidism, unspecified; K22.710 Barrett's esophagus with low grade dysplasia; R41.89 Other symptoms and signs involving cognitive functions and awareness; F41.1 Generalized anxiety disorder; M81.0 Age-related osteoporosis without current pathological fracture; E78.00 Pure hypercholesterolemia, unspecified | CPT/HCPCS: 96127 ==

== ENCOUNTER 2024-05-03 10:31 | Outpatient (REF) | payer MEDICARE, SELFPAY ==
[2024-05-03 13:14] LABS: MANUAL DIFF FLAG NO
[2024-05-03 13:24] LABS: Basophils Percent Auto 0.6 % (0-2); Eosinophils Absolute Auto 0.1 X10*3/uL (0.0-0.4); Eosinophils Percent Auto 1.5 % (0-4); Hematocrit 43.4 % (37.0-47.0); Hemoglobin 13.5 g/dl (12.0-16.0); Imm Gran Abs Auto 0.03 X10*3/uL (0.00-0.03); Imm Gran Pct Auto 0.6 % (0.0-0.4); Lymphocytes Percent Auto 18.8 % (20-40); Mean Corpuscular HGB Conc 31.1 g/dl (31.0-35.0); Mean Corpuscular Hemoglobin 27.3 pg (27.0-33.0); Mean Corpuscular Volume 87.7 fL (80.0-98.0); Mean Platelet Volume 11.9 fL (9.4-12.3); Monocytes Absolute Auto 0.4 X10*3/uL (0.1-1.2); Monocytes Percent Auto 6.5 % (2-11); Neutrophils Absolute Auto 3.9 x10*3/uL (2.0-8.3); Platelet Count 251 X10*3/uL (160-400); Red Blood Count 4.95 X10*6/uL (4.20-5.50); Red Cell Distribution Width 13.7 % (11.0-16.0); White Blood Count 5.4 X10*3/uL (4.8-10.8)
[2024-05-03 13:53] LABS: Alanine Aminotransferase 13 U/L (0-31); Albumin Level 3.8 g/dL (3.5-5.0); Alkaline Phosphatase 88 U/L (39-117); Anion Gap 11 (12-20); Aspartate Amino Transferase 27 U/L (5-31); Bilirubin Total 0.3 mg/dL (0.0-1.0); Blood Urea Nitrogen 16 mg/dL (9-16); Calcium 9.5 mg/dL (8.4-10.2); Carbon Dioxide 26 mmol/L (22-29); Chloride 109 mmol/L (96-108); Cholesterol 129 mg/dL (<200); Estimated Glomerular Filt Rate > 60; Glucose Random 89 mg/dL (60-115); HDL Cholesterol 49 mg/dL (>40); LDL Cholesterol Calculated 61 mg/dL (<100); Potassium 4.9 mmol/L (3.3-5.1); Sodium 141 mmol/L (135-145); Total Protein 8.1 g/dL (6.5-8.0); Triglycerides 98 mg/dL (<150)
[2024-05-03 13:54] LABS: Free T4 (Free Thyroxine) 1.28 ng/dL (0.71-1.85); Thyroid Stimulating Hormone 0.96 uIU/mL (0.32-4.0); Vitamin D 25-OH Total 49.4 ng/mL (>30)
[2024-05-03 14:24] LABS: Folate 5.9 ng/mL (> or = 4.0); Vitamin B12 325 pg/mL (200-900)
--- OUTSIDE RECORDS SUMMARY | 2024-05-03 15:15 | XMS_ITS ---
Author Organization [facility] Address [address] [place] [address] Care Team Providers Care Infertility Nurse Name Role Phone Shane Nelson MD Primary Care Provider Juan R Almaraz [phone] REASON FOR VISIT Pt no showed Encounters Encounter Location Date Provider Diagnosis [facility] [address] [place] [address] 03/12/2023 Juan R Lang PLAN OF TREATMENT No Information
--- OUTSIDE RECORDS SUMMARY | 2024-05-03 15:15 | XMS_ITS | Patient Health Record ---
Author Organization [facility] Address [address] [place] [address] Care Team Providers Care Sole Rounding Machine Operator Name Role Phone Po Shane CARLSON Primary Care Provider Juan R Almaraz [phone] ALLERGIES Allergen (clinical drug ingredient) Drug/Non Drug [...] reflux disease without esophagitis (K21.9) Active confirmed 552353710 Problem Diarrhea (R19.7) Active confirmed 25390 008 Problem Weight loss (R63.4) Active confirmed 89 372644 Problem Ford's esophagus without dysplasia (K22.70) Active confirmed 464106487 Problem Hx of adenomatous colonic polyps (Z86.010) Active confirmed 416046450 Problem Gastroesophageal reflux (K21.9) Active confirmed Esophageal reflux finding (778536094) Problem Diverticulosis of sigmoid colon (K57.30) Active confirmed Diverticulosis of sigmoid colon (324885374) PLAN OF TREATMENT Pending Test Test Name [...] [place] [address] [place] [address] [id number] ALPESH BOTELLO Self - patient is the insured [employer] ATT[employer] CLAIMS [address] [place] [address] [id number] ALPESH BOTELLO Self - patient is the insured MEDICAL (GENERAL) HISTORY Medical History History ICD Code Ford's esophagus- EGD in 04/2008-negative duodenal biopsies for celiac disease at that time Hypothyroidism COPD Denies [place],DM,CVA,renal disease Negative colonoscopy in 05/[address] Smith Hyperlipidemia Depression/anxiety EGD in 09/2011 showed the Ford's, but biopsies neg. for dysplasia Lupus diagnosed in summer, 012-involving the skin-followed by a inspector tubes EGD 04/2015--no Ford's, no esophagitis , moderate-sized [...]
--- OUTSIDE RECORDS SUMMARY | 2024-05-03 15:15 | XMS_ITS ---
Author Organization [facility] Address [address] [place] [address] Care Team Providers Care Container Finisher Name Role Phone Shane Nelson MD Primary Care Provider Juan R Almaraz [phone] REASON FOR VISIT Patient presents today for gerd Encounters Encounter Location Date Provider Diagnosis [facility] [address] [place] [address] 03/12/2023 Juan R Lang PLAN OF TREATMENT No Information
== END 2024-05-03 10:32 | disposition home or self-care (01) ==
LOC: HO.HMGCLDS 10:31
PROVIDERS: PCP Internal Medicine; Visit Provider Internal Medicine
DX: R30.0 Dysuria (principal); E03.9 Hypothyroidism, unspecified; E78.00 Pure hypercholesterolemia, unspecified
CPT/HCPCS: 36415; 80053; 80061; 82306; 82607; 82746; 84439; 84443; 85025

== ENCOUNTER 2024-05-03 14:30 | Outpatient (REF) | payer MEDICARE, SELFPAY ==
--- OUTSIDE RECORDS SUMMARY | 2024-05-04 07:45 | XMS_ITS ---
Author Organization [facility] Address [address] [place] [address] Care Team Providers Care Cashier Ticket Selling Name Role Phone Shane Nelson MD Primary Care Provider Juan R Almaraz [phone] REASON FOR VISIT Patient presents today for gerd Encounters Encounter Location Date Provider Diagnosis [facility] [address] [place] [address] 03/12/2023 Juan R Lang PLAN OF TREATMENT No Information
--- OUTSIDE RECORDS SUMMARY | 2024-05-04 07:45 | XMS_ITS | Patient Health Record ---
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) Active confirmed 744592805 Problem Hx of adenomatous colonic polyps (Z86.010) Active confirmed 785413328 Problem Gastroesophageal reflux (K21.9) Active confirmed Esophageal reflux finding (324488937) Problem Diverticulosis of sigmoid colon (K57.30) Active confirmed Diverticulosis of sigmoid colon (493787540) PLAN OF TREATMENT Pending Test Test Name [...] [place] [address] [place] [address] [id number] ALPESH BOTELLO Self - patient is the insured [employer] ATT[employer] CLAIMS [address] [place] [address] [id number] ALPESH BOTELLO Self - patient is the insured MEDICAL (GENERAL) HISTORY Medical History History ICD Code Ford's esophagus- EGD in 04/2008-negative duodenal biopsies for celiac disease at that time Hypothyroidism COPD Denies ME,DM,CVA,renal disease Negative colonoscopy in 05/[address] Smith Hyperlipidemia Depression/anxiety EGD in 09/2011 showed the Ford's, but biopsies neg. 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
--- OUTSIDE RECORDS SUMMARY | 2024-05-04 07:45 | XMS_ITS ---
Author Organization [facility] Address [address] [place] [address] Care Team Providers Care Corn Lab Technician Name Role Phone Shane Nelson MD Primary Care Provider Juan R Almaraz [phone] REASON FOR VISIT Pt no showed Encounters Encounter Location Date Provider Diagnosis [facility] [address] [place] [address] 03/12/2023 Juan R Lang PLAN OF TREATMENT No Information
== END 2024-05-03 14:31 | disposition home or self-care (01) ==
LOC: HO.HMGCLNP 14:30
PROVIDERS: PCP Internal Medicine; Visit Provider Internal Medicine
DX: Z13.89 Encounter for screening for other disorder (principal)

== ENCOUNTER 2024-05-04 | Outpatient (REF) | payer MEDICARE, SELFPAY ==
[2024-05-04 10:35] LABS: Appearance Urine Turbid; Color Urine Yellow; Glucose Urine UA Negative (Negative); Leukocyte Esterase Urine Negative (Negative); Nitrite Urine Negative (Negative); PH 5.5 (5.0-9.0); Urine Blood Negative (Negative); Urine Ketones Negative (Negative); Urine Protein Negative (Neg-Trace)
== END 2024-05-04 00:01 | disposition home or self-care (01) ==
LOC: HO.HMGCLNP
PROVIDERS: Visit Provider Internal Medicine
DX: E03.9 Hypothyroidism, unspecified (principal); R30.0 Dysuria
CPT/HCPCS: 81003

== ENCOUNTER 2024-05-20 15:05 | Emergency (ER) | payer MEDICARE, SELFPAY ==
--- NOTE | ~2024-05-20 | XR_ITS ---
CLINICAL HISTORY: near syncope Single view of the chest. Comparison 11/08/2023. Findings: Heart size is upper limits of normal. No focal consolidation or pleural effusion is seen. Impression: No consolidation. This document has been electronically signed by: Steven Gutierrez MD on 05/20/2024 17:48:29
--- NOTE | 2024-05-20 15:37 | ECG_ITS ---
Test Reason : FALL Blood Pressure : */* mmHG Vent. Rate : 53 BPM Atrial Rate : 54 BPM P-R Int : 162 ms QRS Dur : 72 ms QT Int : 456 ms P-R-T Axes : 75 63 75 degrees QTcB Int : 427 ms Sinus bradycardia Otherwise normal ECG When compared with ECG of 30-Dec-2023 13:26, No significant change was found Referred By: Generic ED Physician Electronically Signed By: ALAN PATTON MD
[2024-05-20 15:52] VITALS: BP 186/75; BP 187/93; PULSE 50; PULSE 54; RESP 18; TEMP 2.5; TEMP 36.5; O2SAT 100; O2SAT 96; BMI 19.1
--- OUTSIDE RECORDS SUMMARY | 2024-05-20 16:13 | XMS_ITS | Patient Health Record ---
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) Active confirmed 460313804 Problem Hx of adenomatous colonic polyps (Z86.010) Active confirmed 755072616 Problem Gastroesophageal reflux (K21.9) Active confirmed Esophageal reflux finding (089687619) Problem Diverticulosis of sigmoid colon (K57.30) Active confirmed Diverticulosis of sigmoid colon (557853154) PLAN OF TREATMENT Pending Test Test Name [...] [place] [address] [place] [address] [phone] [id number] ALPESH BOTELLO Self - patient is the insured [employer] ATT[employer] CLAIMS [address] [place] [address] [id number] ALPESH BOTELLO Self - patient is the insured MEDICAL (GENERAL) HISTORY Medical History History ICD Code Ford's esophagus- EGD in 04/2008-negative duodenal biopsies for celiac disease at that time Hypothyroidism COPD Denies PA,DM,CVA,renal disease Negative colonoscopy in 05/[address] Smith Hyperlipidemia Depression/anxiety EGD in 09/2011 showed the Ford's, but biopsies neg. 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
--- OUTSIDE RECORDS SUMMARY | 2024-05-20 16:13 | XMS_ITS ---
Author Organization [facility] Address [address] [place] [address] Care Team Providers Care Tire Changer Aircraft Name Role Phone Shane Nelson MD Primary Care Provider Juan R Almaraz [phone] REASON FOR VISIT Pt no showed Encounters Encounter Location Date Provider Diagnosis [facility] [address] [place] [address] 03/12/2023 Juan R Lang PLAN OF TREATMENT No Information
--- OUTSIDE RECORDS SUMMARY | 2024-05-20 16:14 | XMS_ITS ---
Author Organization [facility] Address [address] [place] [address] Care Team Providers Care Stripping Shovel Oiler Name Role Phone Shane Nelson MD Primary Care Provider Juan R Almaraz [phone] REASON FOR VISIT Patient presents today for gerd Encounters Encounter Location Date Provider Diagnosis [facility] [address] [place] [address] 03/12/2023 Juan R Lang PLAN OF TREATMENT No Information
--- NOTE | 2024-05-20 16:18 | ED.GENADULT ---
HPI - General Adult General Chief complaint: Dizziness Stated complaint: WEAKNESS PER EMS Time Seen by Provider: 05/20/24 16:15 Source: patient Limitations: no limitations History of Present Illness ED Provider: Andree Mills PA-C HPI narrative: 78-year-old female with a history of absence seizure on Keppra, COPD on supplemental oxygen at home, anxiety, IBS, underlying cognitive impairment, arthritis, hypertension, hypothyroidism, presents after suspect absence seizure at home. Patient states she was walking to the bathroom, she felt lightheaded, was holding onto the door way, when her grandson lowered her to the floor. There was no postictal phase, there was no loss consciousness, the patient did not fall. The patient states she has been taking her medications as directed, there has been no change in the dosage. She denies recent cough or cold symptoms, no fevers, no nausea vomiting diarrhea or dysuria. Patient states her episode today is consistent with her absence seizures. Patient states she has been having random breakthrough seizures for over the past year. Related Data Home Medications ?Medication ?Instructions ?Recorded ?Confirmed levetiracetam 500 mg tablet 500 mg PO BID 07/31/23 04/12/24 albuterol sulfate 90 mcg/actuation 2 puff inhalation Q6H PRN wheezing 11/08/23 04/12/24 aerosol inhaler Previous Rx's ?Medication ?Instructions ?Recorded blood pressure monitor (Blood #1 ea 05/06/22 Pressure Kit) levothyroxine 112 mcg tablet 112 mcg PO DAILY 90 days #90 tabs 07/28/23 inhalational spacing device #1 ea 08/18/23 (POCKET CHAMBER spacer) omeprazole 20 mg capsule,delayed 20 mg PO DAILY #90 caps 10/22/23 release acetaminophen 325 mg capsule 325 mg PO Q4H PRN pain #30 caps 11/10/23 (Tylenol) sertraline 50 mg tablet 50 mg PO DAILY #90 tabs 02/15/24 simvastatin 20 mg tablet 20 mg PO BEDTIME 90 days #90 tabs 03/19/24 tobramycin 0.3 % eye drops 2 drp ophthalmic (eye) Q4H #5 mL 04/06/24 amlodipine 5 mg tablet 5 mg PO DAILY #90 tabs 04/12/24 memantine 10 mg tablet 10 mg PO BID #180 tabs 04/12/24 cetirizine 10 mg capsule 10 mg PO BEDTIME Allergy Symptoms 04/21/24 #90 caps Allergies Allergy/AdvReac Type Severity Reaction Status Date / Time amoxicillin [AMOXICILLIN] Allergy Intermediate STOMACH Verified 05/20/24 15:57 ISSUES pollen extracts [POLLEN] Allergy Mild RUNNY Verified 05/20/24 15:57 NOSE, SNEEZING, ITCHY EYES Review of Systems Review of Systems: Yes all other systems are reviewed and are negative Constitutional: Constitutional: Denies fatigue, Denies fever(s) and Denies headache(s) ENT: Denies dizziness and Denies headache(s) Cardiovascular: Cardiovascular: Denies chest pain, Denies syncope and Denies dyspnea Respiratory: Respiratory: Denies cough and Denies dyspnea Gastrointestinal: Gastrointestinal: Denies abdominal pain, Denies diarrhea, Denies nausea and Denies vomiting Genitourinary: Genitourinary: Denies dysuria Neurologic: Denies dizziness, Denies syncope and Denies headache(s) Endocrine: Endocrine: Denies fatigue PMF Past Medical History Attestation statement: The following information was validated with the patient. Medical History Nocturnal hypoxemia Acute rhinosinusitis Microscopic hematuria Renal cyst Osteoarthritis, knee COPD (chronic obstructive pulmonary disease) Acute and chronic respiratory failure with hypoxia COPD exacerbation LFT elevation Shortness of breath Rash Bilateral knee pain Hematuria Frequent falls Left-sided back pain Seizure disorder Allergic rhinitis Generalized abdominal pain Anemia Initial Medicare annual wellness visit Screening for osteoporosis Hypoxemia Anemia Syncope Nausea Chronic diarrhea Diarrhea Bile salt-induced diarrhea Cutaneous lupus erythematosus Osteoarthritis Hypertension Vitamin D deficiency COPD (chronic obstructive pulmonary disease) Ford's esophagus GERD (gastroesophageal reflux disease) Hypothyroid Surgical History History of cataract surgery History of rectal surgery History of ear surgery History of cholecystectomy History of eye surgery Family History Family History Father Lymphoma Lung cancer Mother Hypertension Diabetes Sister Brain cancer Social History Social History Household Members: Family Household Members Other:: son, his and their 2 kids Housing: House Do you presently have visiting nurse or other home services: No Alcohol intake: former Patient Tobacco Use Status: Former Tobacco user Tobacco use type: Cigarette e-Cigarette/Vaping Use: Never Used Second Hand Smoke Exposure: No Advance Directives: Yes Advance Directives on File: Yes Advance Directives Date on File: 08/04/23 service: No Current occupational status: retired Cognitive needs: No Hearing needs: Yes (hearing aide) Vision needs: Yes (Glasses) Physical Exam ED Vital Signs: Vital Signs - 24 hr 05/20/24 15:52 05/20/24 18:43 Temperature 36.5 F L 97.7 F Pulse Rate 54 Respiratory Rate 18 Blood Pressure 186/75 H Pulse Oximetry 100 Oxygen Delivery Method Room Air BMI result Body Mass Index 19.1 Const Other: Alert, well-appearing Orientation/consciousness: patient oriented x3 Resp Effort & Inspection: normal respiratory effort Cardio Other: Normal peripheral perfusion Skin Other: Warm dry no rash Neuro General: patient oriented x3, gait normal, no focal motor deficits and CN's II-XI intact bilaterally Extrem Other: Moves all extremities independently Psych Other: Calm cooperative Medical Decision Making Medical Decision Making MDM Narrative: 78-year-old female with a history of absence seizure on Keppra, COPD on supplemental oxygen at home, anxiety, IBS, underlying cognitive impairment, arthritis, hypertension, hypothyroidism, presents after suspect absence seizure at home. Patient states she was walking to the bathroom, she felt lightheaded, was holding onto the door way, when her grandson lowered her to the floor. There was no postictal phase, there was no loss consciousness, the patient did not fall. The patient states she has been taking her medications as directed, there has been no change in the dosage. She denies recent cough or cold symptoms, no fevers, no nausea vomiting diarrhea or dysuria. Patient states her episode today is consistent with her absence seizures. Patient states she has been having random breakthrough seizures for over the past year. Problem: Absence seizure History: Per patient I have considered the following differential diagnoses: Near-syncope, breakthrough seizure, CVA, new arrhythmia, ACS, dehydration, electrolyte abnormality, UTI, viral syndrome Plan: The patient's symptoms are consistent with her breakthrough absence seizures. This has been ongoing for over a year. We will screen basic labs cardiac enzyme EKG chest x-ray viral panel UA, to rule out underlying organic causes that could be contributing to her symptoms today. This is not CVA, she has never had any neurologic deficits, she was lightheaded. She does not complain of palpitations, new arrhythmia less likely. She has not been ill, likely not viral syndrome, no urinary symptoms to suggest UTI. I have independently reviewed the following tests: Labs: No leukocytosis, not anemic, Mag normal, troponin negative, no additional electrolyte abnormality EKG: Sinus bradycardia, rate of 53, no ischemic changes no ectopy, no change when compared to prior study she has been bradycardic before Chest x-ray:Findings: Heart size is upper limits of normal. No focal consolidation or pleural effusion is seen. Impression: No consolidation. This document has been electronically signed by: Steven Gutierrez MD on 05/20/2024 17:48:29 Lab Data 05/20/24 17:07 05/20/24 17:07 Labs: Lab Results 05/20/24 05/20/24 Range/Units 17:07 17:09 WBC 6.6 (4.8-10.8) X10*3/uL RBC 5.16 (4.20-5.50) X10*6/uL Hgb 14.1 (12.0-16.0) g/dl Hct 45.7 (37.0-47.0) % MCV 88.6 (80.0-98.0) fL MCH 27.3 (27.0-33.0) pg MCHC 30.9 L (31.0-35.0) g/dl RDW 13.7 (11.0-16.0) % Plt Count 182 D (160-400) X10*3/uL MPV 12.1 (9.4-12.3) fL Immature Gran % (Auto) 0.5 H (0.0-0.4) % Neut % (Auto) 80.0 H (45-73) % Lymph % (Auto) 12.8 L (20-40) % [place] % (Auto) 4.8 (2-11) % Eos % (Auto) 0.8 (0-4) % Baso % (Auto) 1.1 (0-2) % Lymph # (Auto) 0.9 L (1.2-4.9) X10*3/uL [place] # (Auto) 0.3 (0.1-1.2) X10*3/uL Eos # (Auto) 0.1 (0.0-0.4) X10*3/uL Baso # (Auto) 0.1 (0.0-0.2) X10*3/uL Abs Immat Gran (auto) 0.03 (0.00-0.03) X10*3/uL Absolute Neuts (auto) 5.3 (2.0-8.3) x10*3/uL Absolute Nucleated RBC 0.000 (0.0-0.012) X10*3/uL Nucleated RBC % (auto) 0.0 (0.0-0.2) /100WBC Sodium 141 (135-145) mmol/L Potassium 5.0 (3.3-5.1) mmol/L Chloride 108 (96-108) mmol/L Carbon Dioxide 22 (22-29) mmol/L Anion Gap 16 (12-20) BUN 12 (9-16) mg/dL Creatinine 0.77 (0.5-1.4) mg/dL Estim Creat Clear Calc 42.9 Estimated GFR > 60 Random Glucose 85 (60-115) mg/dL Calcium 9.9 (8.4-10.2) mg/dL Magnesium 1.9 (1.6-2.6) mg/dL Troponin I High Sens < 2.7 (<3.5-17.0) ng/L C-Reactive Protein Cancelled Influenza Type A (PCR) NEGATIVE (Negative) Influenza Type B (PCR) NEGATIVE (Negative) RSV RNA Qual (PCR) NEGATIVE (Negative) SARS-CoV-2 RNA (RT-PCR) NEGATIVE (Negative) Discharge Plan Discharge Clinical Impression: Light-headedness Patient Disposition: Home, Self-Care Instructions: Lightheadedness (ED) Additional Instructions: From what you described, this episode sounds consistent with your absence seizure. All of your screening labs including a cardiac enzymes were normal, the viral panel is negative. There were no concerning changes on the EKG in your chest x-ray is clear. Continue to take your medications as directed, follow up with your primary care provider within a week. You should follow up with your neurologist as well. Prescriptions: No Action levothyroxine 112 mcg tablet 112 mcg PO DAILY 90 Days Qty: 90 3RF omeprazole 20 mg capsule,delayed release(DR/EC) 20 mg PO DAILY Qty: 90 1RF sertraline 50 mg tablet 50 mg PO DAILY Qty: 90 1RF simvastatin 20 mg tablet 20 mg PO BEDTIME 90 Days Qty: 90 2RF cetirizine 10 mg capsule 10 mg PO BEDTIME Qty: 90 0RF levetiracetam 500 mg tablet 500 mg PO BID tobramycin 0.3 % drops 2 drp ophthalmic (eye) Q4H Qty: 5 0RF albuterol sulfate 90 mcg/actuation HFA aerosol inhaler 2 puff INHALATION Q6H PRN (Reason: wheezing) acetaminophen [Tylenol] 325 mg capsule 325 mg PO Q4H PRN (Reason: pain) Qty: 30 0RF (DME) blood pressure monitor [Blood Pressure Kit] Kit See Rx Instructions .ROUTE .MEDSUPPLY Qty: 1 0RF Rx Instructions: As directed memantine 10 mg tablet 10 mg PO BID Qty: 180 2RF amlodipine 5 mg tablet 5 mg PO DAILY Qty: 90 3RF (DME) POCKET CHAMBER Spacer See Rx Instructions .Route Qty: 1 0RF Rx Instructions: As directed Print Language: Occitan
[2024-05-20 17:13] LABS: MANUAL DIFF FLAG NO
[2024-05-20 17:30] LABS: Basophils Absolute Auto 0.1 X10*3/uL (0.0-0.2); Basophils Percent Auto 1.1 % (0-2); Eosinophils Absolute Auto 0.1 X10*3/uL (0.0-0.4); Eosinophils Percent Auto 0.8 % (0-4); Hematocrit 45.7 % (37.0-47.0); Hemoglobin 14.1 g/dl (12.0-16.0); Imm Gran Abs Auto 0.03 X10*3/uL (0.00-0.03); Imm Gran Pct Auto 0.5 % (0.0-0.4); Lymphocytes Absolute Auto 0.9 X10*3/uL (1.2-4.9); Lymphocytes Percent Auto 12.8 % (20-40); Magnesium 1.9 mg/dL (1.6-2.6); Mean Corpuscular HGB Conc 30.9 g/dl (31.0-35.0); Mean Corpuscular Hemoglobin 27.3 pg (27.0-33.0); Mean Corpuscular Volume 88.6 fL (80.0-98.0); Mean Platelet Volume 12.1 fL (9.4-12.3); Monocytes Absolute Auto 0.3 X10*3/uL (0.1-1.2); Monocytes Percent Auto 4.8 % (2-11); Neutrophils Absolute Auto 5.3 x10*3/uL (2.0-8.3); Platelet Count 182 X10*3/uL (160-400); Red Blood Count 5.16 X10*6/uL (4.20-5.50); Red Cell Distribution Width 13.7 % (11.0-16.0); White Blood Count 6.6 X10*3/uL (4.8-10.8)
[2024-05-20 17:39] LABS: Troponin-I High Sensitivity < 2.7 ng/L (<3.5-17.0)
[2024-05-20 17:59] LABS: Influenza A PCR NEGATIVE (Negative); Influenza B PCR NEGATIVE (Negative); Resp Syncy Virus RNA Qual PCR NEGATIVE (Negative); SARS COV2 PCR INHOUSE NEGATIVE (Negative)
--- NOTE | 2024-05-20 18:20 | PC.NURSE ---
update to Alexander, son, on phone
[2024-05-20 18:43] VITALS: TEMP 36.5
[2024-05-20 20:11] LABS: Anion Gap 16 (12-20); Blood Urea Nitrogen 12 mg/dL (9-16); Calcium 9.9 mg/dL (8.4-10.2); Carbon Dioxide 22 mmol/L (22-29); Chloride 108 mmol/L (96-108); Creatinine Clr Calc Pharmacy 42.9; Estimated Glomerular Filt Rate > 60; Glucose Random 85 mg/dL (60-115); Sodium 141 mmol/L (135-145)
--- NOTE | 2024-05-20 20:42 | PC.NURSE ---
PT IS STEADY AMBULATING WITH WALKER.
[2024-05-20 20:56] VITALS: BP 115/80; PULSE 76; RESP 18; TEMP 36.3; O2SAT 90
== END 2024-05-20 20:58 | disposition home or self-care (01) ==
PROVIDERS: Physician Assistant Medical; Emergency Provider Emergency Medicine; PCP Internal Medicine
DX: R00.1 Bradycardia, unspecified (principal); R42 Dizziness and giddiness; J44.9 Chronic obstructive pulmonary disease, unspecified; F41.9 Anxiety disorder, unspecified; K58.9 Irritable bowel syndrome, unspecified; Z99.81 Dependence on supplemental oxygen; Z03.818 Encounter for observation for suspected exposure to other biological agents ruled out; Z79.899 Other long term (current) drug therapy
CPT/HCPCS: 0241U; 36415; 51701; 71045; 80048; 83735; 84484; 85025; 93005; 99283; 99284

== ENCOUNTER → 2024-05-20 15:37 | Outpatient (BNV) | payer MEDICARE, SELFPAY | PROVIDERS: Emergency Provider Emergency Medicine; PCP Internal Medicine; Visit Provider Internal Medicine Cardiovascular Disease | DX: R00.1 Bradycardia, unspecified (principal) | CPT/HCPCS: 93010 ==

== ENCOUNTER → 2024-05-20 16:21 | Outpatient (BNV) | payer MEDICARE, SELFPAY | PROVIDERS: PCP Internal Medicine; Visit Provider Radiology Diagnostic Radiology | DX: R53.1 Weakness (principal) | CPT/HCPCS: 71045 ==

== ENCOUNTER 2024-07-06 16:25 | Inpatient (IN) | payer MEDICARE, SELFPAY ==
[2024-07-06] VITALS (7 sets, daily range): BP systolic 140–218; BP diastolic 68–90; PULSE 55–70; RESP 16–20; TEMP 36.4–36.7; O2SAT 94–100; BMI 22.5
--- NOTE | 2024-07-06 | ECG_ITS ---
Test Reason : weakness Blood Pressure : */* mmHG Vent. Rate : 61 BPM Atrial Rate : 61 BPM P-R Int : 162 ms QRS Dur : 74 ms QT Int : 406 ms P-R-T Axes : 77 60 67 degrees QTcB Int : 408 ms Normal sinus rhythm Normal ECG When compared with ECG of 20-May-2024 15:56, No significant change was found Referred By: Generic ED Physician Electronically Signed By: LUZMA HARTMAN
--- NOTE | ~2024-07-06 | US_ITS ---
CLINICAL HISTORY: transaminitis hx of CBD dilitation US abdomen limited Comparison: US/SR - US ABDOMEN LIMITED - 11/08/23 08:52 EDT Findings: The visualized pancreas is normal. Main pancreatic duct measures 3 mm. The aorta and inferior vena cava are normal caliber. The liver is normal in size and echotexture. There is intrahepatic bile duct dilatation. The common duct is 18 mm in diameter, similar to prior. The gallbladder has been removed. The main portal vein is antegrade. The right kidney is 9 cm in length. A small cyst at the superior pole measures up to 1 cm. No ascites. IMPRESSION: Cholecystectomy with similar intrahepatic and extrahepatic biliary ductal dilation. This document has been electronically signed by: Ruddy Hearn DO on 07/07/2024 06:32:26
--- NOTE | ~2024-07-06 | XR_ITS ---
CLINICAL HISTORY: low o2, hx copd 1 view chest x-ray Comparison: CR - XR CHEST 1V - 05/20/24 17:17 EST Findings: The lungs are clear. Normal size heart. Elongation of the aorta. No acute fracture. IMPRESSION: 1. No acute findings. This document has been electronically signed by: Becky Espino MD on 07/06/2024 18:41:27
[2024-07-06 17:03] LABS: MANUAL DIFF FLAG NO
--- NOTE | 2024-07-06 17:06 | ED_ITS ---
HPI - Weakness General Chief complaint: Weakness Stated complaint: fatigue, weakness, vomit Time Seen by Provider: 07/06/24 16:44 Source: patient and EMS Mode of arrival: EMS Limitations: no limitations History of Present Illness ED Provider: Dr. Deidra Anderson HPI Narrative: Patient comes to the emergency room complaining of generalized weakness. Patient states that today she was not even able to get up and walk to the kitchen to prepare herself a meal. Patient believes she has a little bit behind on her fluids. Patient denies any Chest pain or abdominal pain, denies any URI or UTI symptoms. Patient states that her symptoms have been present for about 3 days. Patient denies any recent falls. Related Data Home Medications ?Medication ?Instructions ?Recorded ?Confirmed levetiracetam 500 mg tablet 500 mg PO BID 07/31/23 04/12/24 albuterol sulfate 90 mcg/actuation 2 puff inhalation Q6H PRN wheezing 11/08/23 04/12/24 aerosol inhaler Previous Rx's ?Medication ?Instructions ?Recorded blood pressure monitor (Blood #1 ea 05/06/22 Pressure Kit) levothyroxine 112 mcg tablet 112 mcg PO DAILY 90 days #90 tabs 07/28/23 inhalational spacing device #1 ea 08/18/23 (POCKET CHAMBER spacer) acetaminophen 325 mg capsule 325 mg PO Q4H PRN pain #30 caps 11/10/23 (Tylenol) sertraline 50 mg tablet 50 mg PO DAILY #90 tabs 02/15/24 simvastatin 20 mg tablet 20 mg PO BEDTIME 90 days #90 tabs 03/19/24 tobramycin 0.3 % eye drops 2 drp ophthalmic (eye) Q4H #5 mL 04/06/24 amlodipine 5 mg tablet 5 mg PO DAILY #90 tabs 04/12/24 memantine 10 mg tablet 10 mg PO BID #180 tabs 04/12/24 cetirizine 10 mg capsule 10 mg PO BEDTIME Allergy Symptoms 04/21/24 #90 caps omeprazole 20 mg capsule,delayed 20 mg PO DAILY #90 caps 06/09/24 release Allergies Allergy/AdvReac Type Severity Reaction Status Date / Time amoxicillin [AMOXICILLIN] Allergy Intermediate STOMACH Verified 07/06/24 16:49 ISSUES pollen extracts [POLLEN] Allergy Mild RUNNY Verified 07/06/24 16:49 NOSE, SNEEZING, ITCHY EYES Sulfa (Sulfonamide Allergy Unknown Verified 07/06/24 16:52 Antibiotics) Review of Systems 2 Review of Systems: Constitutional : No Weight loss, No Fever, No Chills, No Night Sweats, complaining of fatigue and weakness ENT/Mouth : No Hearing loss, No Ear Pain, No Nasal Congestion, No Sinus Pain, No Hoarseness, No sore throat, No Rhinorrhea, No Swallowing Difficulty Eyes: No Eye Pain, No Swelling, No Redness, No Foreign Body, No Discharge, No Vision Changes Cardiovascular : No Chest Pain, No SOB, No Dyspnea on Exertion, No Orthopnea, No Edema, No Palpitations Respiratory : No Cough, No Sputum, No Wheezing, No Smoke Exposure, No Dyspnea Gastrointestinal : No Nausea, No Vomiting, No Diarrhea, No Constipation, No abdominal Pain, No Hematochezia, No Melena Genitourinary : no irregular bleeding, No Dysuria, No Urinary Frequency, No Hematuria, No Urinary Incontinence, No Urgency, No Flank Pain, No Urinary Flow Changes, No Hesitancy Musculoskeletal : No joint pain, No Myalgias, No Joint Swelling Skin : No Skin Lesions, No rash Neuro : No Weakness, No Numbness, No Paresthesias, No Loss of Consciousness, No Dizziness, No Headache Psych : No Anxiety/Panic, No Depression, No SI/HI/AH/VH, No Social Issues, Heme/Lymph: No Bruising, No Bleeding,No Lymphadenopathy Endocrine : No Polyuria, No Polydipsia, No Temperature Intolerance PMFSH Past Medical History Medical History Nocturnal hypoxemia Acute rhinosinusitis Microscopic hematuria Renal cyst Osteoarthritis, knee COPD (chronic obstructive pulmonary disease) Acute and chronic respiratory failure with hypoxia COPD exacerbation LFT elevation Shortness of breath Rash Bilateral knee pain Hematuria Frequent falls Left-sided back pain Seizure disorder Allergic rhinitis Generalized abdominal pain Anemia Initial Medicare annual wellness visit Screening for osteoporosis Hypoxemia Anemia Syncope Nausea Chronic diarrhea Diarrhea Bile salt-induced diarrhea Cutaneous lupus erythematosus Osteoarthritis Hypertension Vitamin D deficiency COPD (chronic obstructive pulmonary disease) Ford's esophagus GERD (gastroesophageal reflux disease) Hypothyroid Surgical History History of cataract surgery History of rectal surgery History of ear surgery History of cholecystectomy History of eye surgery Family History Family History Father Lymphoma Lung cancer Mother Hypertension Diabetes Sister Brain cancer Social History Social History Household Members: Family Household Members Other:: son, his and their 2 kids Housing: House Do you presently have visiting nurse or other home services: No Alcohol intake: former Patient Tobacco Use Status: Former Tobacco user Tobacco use type: Cigarette Smoked in Last 30 Days: No e-Cigarette/Vaping Use: Never Used Second Hand Smoke Exposure: No Use of substances other than those prescribed or required for medical reasons: No Advance Directives: Yes Advance Directives on File: Yes Advance Directives Date on File: 08/04/23 Do you have a plan to hurt others: No Plan service: No Current occupational status: retired Cognitive needs: No Hearing needs: Yes (hearing aide) Vision needs: Yes (Glasses) Physical Exam 2 Vital Signs: Vital Signs: Last Vital Signs Temp 97.5 F 07/07/24 00:02 Pulse 56 07/07/24 01:57 Resp 20 07/07/24 01:57 BP 207/85 H 07/07/24 01:57 Pulse Ox 100 07/07/24 01:57 O2 Del Method Nasal Cannula 07/07/24 01:57 O2 Flow Rate 2 07/07/24 01:57 Oxygen Flow Rate 2 07/06/24 16:39 BMI result Body Mass Index 22.5 Const: Other: Appearance: Alert. Oriented X3. No acute distress. well-appearing Eyes: Pupils equal, round and reactive to light. ENT: Pharynx normal. Neck: Normal inspection. Neck supple. No lymph nodes noted. No crepitus CVS: Normal heart rate and rhythm. Pulses normal. Normal S1 and S2 Respiratory: No respiratory distress. Breath sounds normal. No Wheezing. No rales Abdomen: Soft and nontender. No rigidity. No distention. Skin: Skin warm and dry. Normal skin color. Normal skin turgor. Extremities: No lower extremity edema. No Lacerations. No Rash Neuro: Oriented X 3. No motor deficit. No sensory deficit. Moving all extremities. No slurred speech. CN 2 through 12 grossly intact Psych: calm, cooperative, normal affect Medications Administered Discontinued Medications Generic Name Dose Route Start Last Admin Trade Name Freq PRN Reason Stop Dose Admin Cefuroxime Axetil 250 mg 07/07/24 01:52 07/07/24 01:58 Cefuroxime Axetil 250 Mg Tablet PO 07/07/24 01:53 250 mg ONCE ONE Administration Hydralazine HCl 25 mg 07/07/24 00:22 07/07/24 01:58 Hydralazine Hcl 25 Mg Tablet PO 07/07/24 00:23 25 mg ONCE ONE Administration Protocol Labetalol HCl 100 mg 07/06/24 23:40 07/07/24 00:25 Labetalol Hcl 100 Mg Tablet PO 07/06/24 23:41 Not Given ONCE ONE Protocol Losartan Potassium 50 mg 07/06/24 21:11 07/06/24 21:33 Losartan Potassium 50 Mg Tablet PO 07/06/24 21:12 50 mg ONCE ONE Administration Protocol Nitroglycerin 1 inch 07/07/24 00:42 07/07/24 01:04 Nitroglycerin 2 % Oint 1 Gm Packet TRANSDERMA 07/07/24 00:43 1 inch ONCE ONE Administration Medical Decision Making Medical Decision Making MDM Narrative: my interpretation of labs: No significant abnormality in patient's hematology and chemistry, LFTs slightly bumped, no abdominal pain, normal troponin, BNP 108 slightly elevated, no CHF/pulmonary edema. Urinalysis positive for UTI. Patient was given p.o. cefuroxime chest x-ray does not show any acute abnormality. EKG: Normal sinus rhythm, heart rate 61, no ST segment depression or elevation, no T-wave inversion, QTC 408 patient's blood pressure has been continuously above 200. We have tried losartan, hydralazine, nitroglycerin patch, we did not give labetalol due to patient's low heart rate. Patient has a low dose of hydralazine. If needed she can have a higher dose. Patient denies chest pain headache or visual changes. I discussed the patient with Dr. Horton, once the blood pressure improves, she will be admitted. Sign-out given to my colleague Dr. Altamirano Differential Diagnosis Differential Diagnoses: The differential diagnosis associated with the presentation includes ( UTI, viral syndrome, hypertensive urgency) Admission/Observation Consideration of admission/observation: Escalation of care including admission/observation considered Consult Healthcare Provider Management of the patient was discussed with: Hospitalist Lab Data [facility] Lab Attestation statement: I reviewed the patient's lab results. 07/06/24 16:58 07/06/24 16:58 Labs: Lab Results 07/06/24 07/07/24 Range/Units 16:58 01:00 WBC 5.9 (4.8-10.8) X10*3/uL RBC 4.74 (4.20-5.50) X10*6/uL Hgb 13.1 (12.0-16.0) g/dl Hct 41.3 (37.0-47.0) % MCV 87.1 (80.0-98.0) fL MCH 27.6 (27.0-33.0) pg MCHC 31.7 (31.0-35.0) g/dl RDW 14.7 (11.0-16.0) % Plt Count 201 (160-400) X10*3/uL MPV 12.1 (9.4-12.3) fL Immature Gran % (Auto) 0.2 (0.0-0.4) % Neut % (Auto) 79.6 H (45-73) % Lymph % (Auto) 11.6 L (20-40) % [place] % (Auto) 6.2 (2-11) % Eos % (Auto) 1.7 (0-4) % Baso % (Auto) 0.7 (0-2) % Lymph # (Auto) 0.7 L (1.2-4.9) X10*3/uL [place] # (Auto) 0.4 (0.1-1.2) X10*3/uL Eos # (Auto) 0.1 (0.0-0.4) X10*3/uL Baso # (Auto) 0.0 (0.0-0.2) X10*3/uL Abs Immat Gran (auto) 0.01 (0.00-0.03) X10*3/uL Absolute Neuts (auto) 4.7 (2.0-8.3) x10*3/uL Absolute Nucleated RBC 0.000 (0.0-0.012) X10*3/uL Nucleated RBC % (auto) 0.0 (0.0-0.2) /100WBC Sodium 141 (135-145) mmol/L Potassium 5.0 (3.3-5.1) mmol/L Chloride 106 (96-108) mmol/L Carbon Dioxide 29 (22-29) mmol/L Anion Gap 11 L (12-20) BUN 13 (9-16) mg/dL Creatinine 0.73 (0.5-1.4) mg/dL Estim Creat Clear Calc 47.1 Estimated GFR > 60 Random Glucose 82 (60-115) mg/dL Calcium 9.5 (8.4-10.2) mg/dL Magnesium 1.8 (1.6-2.6) mg/dL Total Bilirubin 0.7 (0.0-1.0) mg/dL Direct Bilirubin 0.2 (0.0-0.5) mg/dL AST 96 H (5-31) U/L ALT 111 H (0-31) U/L Alkaline Phosphatase 115 (39-117) U/L Troponin I High Sens 2.9 (<3.5-17.0) ng/L B-Natriuretic Peptide 108 H (<100) pg/mL Total Protein 7.6 (6.5-8.0) g/dL Albumin 3.8 (3.5-5.0) g/dL Urine Color Yellow Urine Appearance Clear Urine pH 5.5 (5.0-9.0) Ur Specific [place] 1.020 (1.005-1.025) Urine Protein 30 (1+) H (Neg-Trace) mg/dL Urine Glucose (UA) Negative (Negative) mg/dL Urine Ketones Trace (Negative) mg/dL Urine Blood Moderate (2+) H (Negative) Urine Nitrite Negative (Negative) Ur Leukocyte Esterase Small (1+) H (Negative) Urine RBC >20 H (0-2) /HPF Urine WBC 11-20 H (0-5) /HPF Ur Squamous Epith Cells 0-2 (0-2) /HPF Urine Bacteria None Seen (None Seen) Hyaline Casts 0-2 (0-2) /LPF Influenza Type A (PCR) NEGATIVE (Negative) Influenza Type B (PCR) NEGATIVE (Negative) RSV RNA Qual (PCR) NEGATIVE (Negative) SARS-CoV-2 RNA (RT-PCR) NEGATIVE (Negative) Independent Interpretation I performed an independent interpretation of an: Plain X-Ray Radiology Impression Discussion of test interpretation with radiology: I have reviewed the radiologist's reading. Radiologist Impression: The lungs are clear. Normal size heart. Elongation of the aorta. No acute fracture. Critical Care Time Critical Care Time Critical Care Time: Yes Total Critical Care Time: 60 Attestation: I have personally provided critical care time. Time includes review of lab data, radiology results, discussion with consultants, and monitoring for potential decompensation. Intervention performed as documented. Discharge Plan Discharge Clinical Impression: Acute UTI Hypertension Qualifiers: Hypertension type: essential hypertension Qualified Code(s): I10 - Essential (primary) hypertension Patient Disposition: Admitted As Inpatient Print Language: Pashto
[2024-07-06 17:19] LABS: Basophils Percent Auto 0.7 % (0-2); Eosinophils Absolute Auto 0.1 X10*3/uL (0.0-0.4); Eosinophils Percent Auto 1.7 % (0-4); Hematocrit 41.3 % (37.0-47.0); Hemoglobin 13.1 g/dl (12.0-16.0); Imm Gran Abs Auto 0.01 X10*3/uL (0.00-0.03); Imm Gran Pct Auto 0.2 % (0.0-0.4); Lymphocytes Absolute Auto 0.7 X10*3/uL (1.2-4.9); Lymphocytes Percent Auto 11.6 % (20-40); Mean Corpuscular HGB Conc 31.7 g/dl (31.0-35.0); Mean Corpuscular Hemoglobin 27.6 pg (27.0-33.0); Mean Corpuscular Volume 87.1 fL (80.0-98.0); Mean Platelet Volume 12.1 fL (9.4-12.3); Monocytes Absolute Auto 0.4 X10*3/uL (0.1-1.2); Monocytes Percent Auto 6.2 % (2-11); Neutrophils Absolute Auto 4.7 x10*3/uL (2.0-8.3); Neutrophils Percent Auto 79.6 % (45-73); Platelet Count 201 X10*3/uL (160-400); Red Blood Count 4.74 X10*6/uL (4.20-5.50); Red Cell Distribution Width 14.7 % (11.0-16.0); White Blood Count 5.9 X10*3/uL (4.8-10.8)
[2024-07-06 17:53] LABS: Magnesium 1.8 mg/dL (1.6-2.6)
[2024-07-06 17:56] LABS: Anion Gap 11 (12-20)
[2024-07-06 18:08] LABS: Alanine Aminotransferase 111 U/L (0-31); Albumin Level 3.8 g/dL (3.5-5.0); Alkaline Phosphatase 115 U/L (39-117); Aspartate Amino Transferase 96 U/L (5-31); Bilirubin Direct 0.2 mg/dL (0.0-0.5); Bilirubin Total 0.7 mg/dL (0.0-1.0); Blood Urea Nitrogen 13 mg/dL (9-16); Calcium 9.5 mg/dL (8.4-10.2); Carbon Dioxide 29 mmol/L (22-29); Chloride 106 mmol/L (96-108); Creatinine Clr Calc Pharmacy 47.1; Estimated Glomerular Filt Rate > 60; Glucose Random 82 mg/dL (60-115); Sodium 141 mmol/L (135-145); Total Protein 7.6 g/dL (6.5-8.0)
[2024-07-06 18:12] LABS: Influenza A PCR NEGATIVE (Negative); Influenza B PCR NEGATIVE (Negative); Resp Syncy Virus RNA Qual PCR NEGATIVE (Negative); SARS COV2 PCR INHOUSE NEGATIVE (Negative)
[2024-07-06 18:38] LABS: B Type Natriuretic Peptide 108 pg/mL (<100)
[2024-07-06 18:48] LABS: Troponin-I High Sensitivity 2.9 ng/L (<3.5-17.0)
--- NOTE | 2024-07-06 18:55 | PC.NURSE ---
patient stand and pivot to commode at bedside or urine sample collection. Daughter in law at bedside to assist.
--- OUTSIDE RECORDS SUMMARY | 2024-07-06 18:59 | XMS_ITS | Patient Health Record ---
Author Organization [facility] Address [address] [id number] Care Team Providers Care Integration Software Engineer Name Role Phone Po Shane CARLSON Primary Care Provider Juan R Almaraz [phone] Allergies Allergen (clinical drug ingredient) Drug/Non Drug Allergy documented on EMR Reaction Allergy Type Onset Date Status amoxicillin Amoxicillin Unknown Drug Allergy Act dom Reason For Referral No Information Medications Medication SIG (Take, Route, Frequency, Duration) Notes [...] Active Simvastatin 20mg Act dom metroNIDAZOLE Active Immunizations Vaccine Route Administration Date Status Comme nts Flu vaccine no Preserv 3 and > Unknown 01/05/2015 Admin istered Influenza Unknown 12/07/2019 Administered Influenza Unknown 01/04/2021 Administered Problems Problem Type SNOMED Code ICD Code Onset Dates Problem Status W/U Status Risk Notes Problem 866039941 Gastro-esophagea l reflux disease without esophagitis (K21.9) Active confirmed Problem 20113537 Diarrhea (R19.7) Active confirmed Problem 58742058 Weight loss (R63.4) Active confirmed Problem 396488682 Ford's esopha andrew without dysplasia (K22.70) Active confirmed Problem 534128112 Hx of adenomatou s colonic polyps (Z86.010) Active confirmed Problem Esophageal reflux finding (756026081) Gastroesophageal reflux (K21.9) Active confirmed Problem Diverticulosis of sigmoid colon (180556941) Diverticulosis of sigmoid colon (K57.30) Active confirmed Plan Of Treatment Pending Test Test Name Order Date CHEM [...] Date MEDICARE OF [place] [address] [place] [address] [id number] ROSMERY ALPESH Self - patient is the insured [employer] ATTN CLAIMS [address] [place] [address] [phone] [id number] ALPESH BOTELLO Self - patient is the insured Medical (General) History Medical History History ICD Code Ford's esophagus- EGD in 04/2008-negative duodenal biopsies for celiac disease at that time Hypothyroidism COPD Denies FL,DM,CVA,renal disease Negative colonoscopy in 05/[address] Smith Hyperlipidemia Depression/anxiety EGD in 09/2011 showed the Ford's, but biopsies neg. for dysplasia Lupus diagnosed in summer, 012-involving the skin-followed by a integrity analyst EGD 04/2015--no Ford's, no esophagitis , moderate-sized [...]
--- OUTSIDE RECORDS SUMMARY | 2024-07-06 18:59 | XMS_ITS ---
Author Organization [facility] Address [address] [place] [phone] Care Team Providers Care Cigar Packer And Grader Name Role Phone Shane Nelson MD Primary Care Provider Juan R Almaraz [phone] REASON FOR VISIT Patient presents today for gerd Encounters Encounter Location Date Provider Diagnosis [facility] [address] [facility] [address] [place] [phone] 03/12/2023 Juan R Lang Plan Of Treatment No Information Progress Notes * ALPESH BOTELLO ADOB:[birth year] (78 yo F)Acc No.[id number]:03/12/2023 Progress Notes Patient:?ALPESH BOTELLO Provider:?Juan R Lang MD :1945???Age:77 Y???Sex:Female D ate:03/12/2023 Address:[address] [place], [place] [id number] Pcp:Shane Nelson MD Subjective: * Chief Complaints: * ???1. Patient presents today for gerd. * Medical History:? Objective: * Vitals:? Assessment: Plan: * Treatment: * * The named appointment provid er may or may not be the originator of this progress note, and it is not deemed complete until electronically signed by the appointment provider. Sign off status: Pending * Provider:?Juan R Lang MD Date:? 023 Generated for Printi ng/Faxing/eTransmitting on:?07/06/2024 06:59 PM EDT
--- OUTSIDE RECORDS SUMMARY | 2024-07-06 18:59 | XMS_ITS ---
Author Organization [facility] Address [address] [place] [address] Care Team Providers Care Chain Offbearer Name Role Phone Shane Nelson MD Primary Care Provider Juan R Almaraz [phone] REASON FOR VISIT Pt no showed Encounters Encounter Location Date Provider Diagnosis [facility] [address] [place] [phone] 03/12/2023 Juan R Lang Plan Of Treatment No Information Progress Notes * ALPESH BOTELLO ADOB:[birth year] (77 yo F)Acc No.[id number]:03/12/2023 Patient:?LINA BOTELLORICIA Pedro Pablo :1945???Age:77 Y???Sex:Female Address:[address] [place] [id number] * true * Date:? Generated for Printi mandi/Ward/eTransmitting on:?07/06/2024 06:59 PM EDT
[2024-07-06] MEDS: Losartan Potassium 50 MG TABLET PO (21:33)
--- NOTE | 2024-07-06 21:51 | PC.NURSE ---
unable to obtain straight cath at this time. per pt able to eat and drink, will try on commode again for UA
[2024-07-07] VITALS (22 sets, daily range): BP systolic 132–207; BP diastolic 53–88; PULSE 56–88; RESP 12–54; TEMP 36.4–37.1; O2SAT 95–100
[2024-07-07] MEDS: Nitroglycerin 2 % Oint 1 GM Packet 1 INCH TRANSDERMA (01:04)
--- NOTE | 2024-07-07 01:07 | PC.NURSE ---
assist pt to commode, UA collected and sent.
[2024-07-07 01:13] LABS: Appearance Urine Clear; Color Urine Yellow; Glucose Urine UA Negative (Negative); Leukocyte Esterase Urine Small (1+) (Negative); Nitrite Urine Negative (Negative); PH 5.5 (5.0-9.0); UMIC TRIGGER UACC YES; Urine Blood Moderate (2+) (Negative); Urine Ketones Trace mg/dL (Negative); Urine Protein 30 (1+) mg/dL (Neg-Trace)
[2024-07-07 01:18] LABS: Bacteria Urine None Seen (None Seen); Hyaline Casts Urine 0-2 /LPF (0-2); RBC Urine >20 /HPF (0-2); Squamous Epithelial Cell Urine 0-2 /HPF (0-2); UACC Culture Trigger YES
[2024-07-07] MEDS: hydrALAZINE HCl 25 MG TABLET PO (01:58)
[2024-07-07] MEDS: cefuroxime axetiL 250 MG TABLET PO (01:58)
--- NOTE | 2024-07-07 04:01 | P.HPHOSP_ITS ---
History of Present Illness Date of Service: 07/07/24 Attending physician on admission: Sudhir Horton Chief Complaint: weakness Patient is a 78-year-old female with significant past medical history to include seizure disorder on Keppra, hyperlipidemia, hypertension, allergic rhinitis, COPD on oxygen at home 2 L nasal cannula, osteoporosis, IBS, anxiety and depression, vitamin-D deficiency, memory impairment, Ford's esophagus, GERD and hypothyroidism was brought in by EMS earlier after patient was seen by her grandson and noted that patient had been bed-bound for approximately 24-48 hours with severe weakness and mildly altered mental status with poor memory. Patient was evaluated in the emergency department and determined to have a urinary tract infection, urine culture is pending. Patient also noted to have hypertensive urgency with a systolic blood pressure over 200. Patient currently states that she never had issues with her blood pressure in the past. Patient does not believe she has renal artery stenosis and is normally compliant with her usual medications. In addition patient was noted to be slightly bradycardic with an EKG that was normal in terms of WV interval and QTC. Patient does not appear to be on any AV emma blocking agents prior to ED visit. Patient currently denies any chest pain, shortness of breath at rest, headaches, visual changes, nausea or vomiting. Patient has received nitro paste, labetalol IV and oral hydralazine. Blood pressure rechecked and is currently running 190/79. Patient now receiving IV hydralazine 20 mg. We will also resume patient's amlodipine. Patient's troponin was negative and BNP was elevated. There is no record of any recent echocardiogram. Chest x-ray negative for cardiomegaly or signs of pleural effusion, pulmonary edema or pneumonia. Echocardiogram will be ordered noting wide pulse pressure. Patient will be admitted for IV ceftriaxone for UTI, await culture results. Patient does not exhibit signs of sepsis and does not meet the criteria for SIRS. Patient also admitted for hypertensive urgency. Can consider consultation with Cardiology and/or Nephrology if needed. Renal function is stable. Renal ultrasound done in December of 2023 with no evidence of renal artery stenosis. We will continue oral and IV medication regimen to help control blood pressure. Patient has had past visits at [facility] for near-syncope, syncope, orthostatic hypotension. In addition patient has transaminitis. Patient is seen November 2023 in the ED and was found to have common bile duct dilatation and it was requested that patient have an MRCP as an outpatient. There currently is no record of an MRCP in the EMR. Patient is not sure if she actually had the test done. [place] reorder ultrasound of the abdomen for further evaluation. Review of Systems 2 Review of Systems: Patient currently denies any chest pain, shortness of breath at rest, headache, visual changes, abdominal pain, nausea, vomiting or lower calf pain. Patient denies history of any blood clots in the lungs or legs. Patient denies any recent falls but does report profound weakness over the last 48 hours. Patient states she has had issues with her memory over the last year. Yes all other systems are reviewed and are negative [facility] Medical History Nocturnal hypoxemia Acute rhinosinusitis Microscopic hematuria Renal cyst Osteoarthritis, knee COPD (chronic obstructive pulmonary disease) Acute and chronic respiratory failure with hypoxia COPD exacerbation LFT elevation Shortness of breath Rash Bilateral knee pain Hematuria Frequent falls Left-sided back pain Seizure disorder Allergic rhinitis Generalized abdominal pain Anemia Initial Medicare annual wellness visit Screening for osteoporosis Hypoxemia Anemia Syncope Nausea Chronic diarrhea Diarrhea Bile salt-induced diarrhea Cutaneous lupus erythematosus Osteoarthritis Hypertension Vitamin D deficiency COPD (chronic obstructive pulmonary disease) Ford's esophagus GERD (gastroesophageal reflux disease) Hypothyroid Functional capacity: uses cane/walker Patient : No Family History Father Lymphoma Lung cancer Mother Hypertension Diabetes Sister Brain cancer Surgical History History of cataract surgery History of rectal surgery History of ear surgery History of cholecystectomy History of eye surgery Social History Household Members: Family Household Members Other:: son, his and their 2 kids Housing: House Do you presently have visiting nurse or other home services: No Alcohol intake: former Patient Tobacco Use Status: Former Tobacco user Tobacco use type: Cigarette Smoked in Last 30 Days: No e-Cigarette/Vaping Use: Never Used Second Hand Smoke Exposure: No Use of substances other than those prescribed or required for medical reasons: No Advance Directives: Yes Advance Directives on File: Yes Advance Directives Date on File: 08/04/23 Do you have a plan to hurt others: No Plan Patient : No service: No Current occupational status: retired Cognitive needs: No Hearing needs: Yes (hearing aide) Vision needs: Yes (Glasses) Ebola Risk: Travel/Contact With Anyone From Affected Area/s: No Has Patient Experienced Ebola Symptoms: No Meds Allergies Allergy/AdvReac Type Severity Reaction Status Date / Time amoxicillin [AMOXICILLIN] Allergy Intermediate STOMACH Verified 07/06/24 16:49 ISSUES pollen extracts [POLLEN] Allergy Mild RUNNY Verified 07/06/24 16:49 NOSE, SNEEZING, ITCHY EYES Sulfa (Sulfonamide Allergy Unknown Verified 07/06/24 16:52 Antibiotics) Active Medications: Current Medications Acetaminophen (Acetaminophen 325 Mg Tablet) 650 mg PO Q6H PRN PRN Reason: Pain, Mild 1-3,fever,headache Calcium Carbonate (Calcium Carbonate 750 Mg Tab.Chew) 750 mg PO Q4H PRN PRN Reason: Heartburn Enoxaparin Sodium (Enoxaparin Sodium 40 Mg/0.4 Ml Syringe) 40 mg SUBCUT Q24H BRENT Hydralazine HCl (Hydralazine Hcl 20 Mg/Ml Vial) 20 mg IVPUSH ONCE ONE; Protocol Stop: 07/07/24 03:53 Sodium Chloride (Ns) 1,000 mls @ 100 mls/hr IVCONT .Q10H BRENT Stop: 07/07/24 13:59 Magnesium Hydroxide (Milk Of Magnesia 30 Ml Oral.Susp) 30 ml PO DAILY PRN PRN Reason: Constipation Melatonin (Melatonin 3 Mg Tablet) 6 mg PO BEDTIME PRN PRN Reason: Insomnia Sodium Chloride (0.9 % Sodium Chloride Flush 3 Ml Syringe) 3 ml IVFLUSH QSHIFT [facility] Home Medications ?Medication ?Instructions ?Recorded ?Confirmed ?Last Taken ?Type levetiracetam 500 mg tablet 500 mg PO BID 07/31/23 04/12/24 07/31/23 History albuterol sulfate 90 mcg/actuation 2 puff inhalation Q6H PRN wheezing 11/08/23 04/12/24 Unknown History aerosol inhaler Physical Exam 2 Vital Signs and Narrative: Vital Signs: Last Vital Signs Temp 97.5 F 07/07/24 00:02 Pulse 56 07/07/24 01:57 Resp 20 07/07/24 01:57 BP 194/72 H 07/07/24 03:20 Pulse Ox 100 07/07/24 01:57 O2 Del Method Nasal Cannula 07/07/24 01:57 O2 Flow Rate 2 07/07/24 01:57 Oxygen Flow Rate 2 07/06/24 16:39 BMI result Body Mass Index 22.5 Alert and orientated X3, able to give good history. Overall memory short term limited. Neuro: CN II-X11 intact, no deficits, visual acuity intact, glasses on EYES: PERRLA, EOM intactm conjunctiva pink, ectropion R > L eye ENT: hearing intact, no issues with swallowing, uvula midline, lips moist, nares patent no epistaxis Cardiac: S1 S2 RRR, no murmur, no JVD, no edema in Lower ext Pulmonary: lungs clear to auscultation B Abdominal: BS active in all 4 quadrants, no guarding, tenderness, rebounding MSK: strength 4/5 upper and lower extremities : no CVA tenderness no bladder distension Extremities: no edema in lower extremities, PT and DP pulses palpable +2 Psych: mood stable, judgement and insight good Skin: no obvious opened wounds Results Labs 07/06/24 16:58 07/06/24 16:58 Labs: Laboratory Results - last 24 hr 07/06/24 07/07/24 16:58 01:00 MCV 87.1 MCH 27.6 MCHC 31.7 RDW 14.7 Plt Count 201 MPV 12.1 Immature Gran % (Auto) 0.2 Neut % (Auto) 79.6 H Lymph % (Auto) 11.6 L [place] % (Auto) 6.2 Eos % (Auto) 1.7 Baso % (Auto) 0.7 Lymph # (Auto) 0.7 L [place] # (Auto) 0.4 Eos # (Auto) 0.1 Baso # (Auto) 0.0 Abs Immat Gran (auto) 0.01 Absolute Neuts (auto) 4.7 Absolute Nucleated RBC 0.000 Nucleated RBC % (auto) 0.0 Anion Gap 11 L Estim Creat Clear Calc 47.1 Estimated GFR > 60 Random Glucose 82 Calcium 9.5 Magnesium 1.8 Total Bilirubin 0.7 Direct Bilirubin 0.2 AST 96 H ALT 111 H Alkaline Phosphatase 115 B-Natriuretic Peptide 108 H Total Protein 7.6 Albumin 3.8 Urine Color Yellow Urine Appearance Clear Urine pH 5.5 Ur Specific [place] 1.020 Urine Protein 30 (1+) H Urine Glucose (UA) Negative Urine Ketones Trace Urine Blood Moderate (2+) H Urine Nitrite Negative Ur Leukocyte Esterase Small (1+) H Urine RBC >20 H Urine WBC 11-20 H Ur Squamous Epith Cells 0-2 Urine Bacteria None Seen Hyaline Casts 0-2 Influenza Type A (PCR) NEGATIVE Influenza Type B (PCR) NEGATIVE RSV RNA Qual (PCR) NEGATIVE SARS-CoV-2 RNA (RT-PCR) NEGATIVE ECG Attestation: I personally reviewed and interpreted this ECG as follows: (Sinus rhythm heart rate 61 WV interval and QTC within normal limits. No ischemic changes) ECG interpretation date: 07/07/24 Prior ECG tracings: available for review Imaging Radiologist's Impressions: Chest x-ray Negative for cardiomegaly or acute findings. Assessment and Plan (1) Hypertensive urgency: Status: Acute (2) Acute UTI: Status: Acute (3) Weakness: Status: Acute (4) Elevated brain natriuretic peptide (BNP) level: Status: Acute (5) Transaminitis: Status: Acute (6) Seizure disorder: Status: Acute Plan Patient is a 78-year-old female with significant past medical history to include seizure disorder on Keppra, hyperlipidemia, hypertension, allergic rhinitis, COPD on oxygen at home 2 L nasal cannula, osteoporosis, IBS, anxiety and depression, vitamin-D deficiency, memory impairment, Ford's esophagus, GERD and hypothyroidism is being admitted for possible UTI and hypertensive urgency with an elevated BNP and mild transaminitis. 1. Hypertensive urgency Patient has received IV labetalol, oral hydralazine, nitro paste, and now IV hydralazine. Systolic is now in the 190s, diastolics in the 70s. Adding patient's oral amlodipine. No history of renal artery stenosis or hypertensive urgency per patient.. Echocardiogram ordered noting elevated BNP EKG sinus rhythm, normal WV and QTC. No ischemic changes noted. Troponin level within normal limits. 1 L of fluid being administered as patient has had poor oral intake overall 72 hours. Consult Cardiology or Nephrology if needed 2. Acute UTI UA noted for +2 hematuria negative for nitrites positive for leukocyte esterase with 11-20 1000 WBCs, 0 bacteria Patient was started on Ceftin orally in the ED. We will continue with ceftriaxone IV and follow urine culture which has been collected. Hydration also ordered. 3. Weakness Patient noted profound weakness since FridayJuly 04 and has been bed-bound since oral intake. PT eval ordered. 4. Elevated BNP BNP 108. Patient presents euvolemic. Chest x-ray negative for pleural effusion or pulmonary edema. No JVD or edema on exam No record of any recent echo. Echocardiogram has been ordered. 5. Transaminitis Patient was seen in ED back in November 2023 for elevated liver function tests. Abdominal ultrasound and abdominal CT were completed and common bile duct dilatation was noted and outpatient MRCP was recommended per General Surgery. Patient can not recall if MRCP was completed. We will repeat abdominal ultrasound at this time. GI consultation if abnormal. Avoid hepatotoxic drugs We will check hepatitis profile. Patient does not drink alcohol regularly nor has history of alcohol abuse 6. Seizure disorder Patient continues on Keppra. Patient denies any recent seizures and follows with Neurology on a regular basis. No indication for seizure precautions at this time. Patient requires inpatient hospitalization for hypertensive urgency, UTI with profound weakness and need for physical therapy consultation as well as transaminitis noting patient likely did not do outpatient follow-up with an MRCP based on ED visit back in November of 2023. Medication reconciliation will need to be completed in the a.m.. Total time managing care of this patient today: 40 minutes. Quality Stroke Does the patient have a stroke diagnosis?: No Reason for No Anti-thrombotic by Day Two: N/A - Med Ordered VTE Prior VTE?: No VTE Risk Level:: Medical - moderate - high VTE Device Contraindication: Treatment Not Indicated VTE Drug Contraindication: N/A - Med Ordered
--- NOTE | 2024-07-07 05:02 | PC.NURSE ---
pt off unit for U/S
[2024-07-07] MEDS: Enoxaparin Sodium 40 MG/0.4 ML SYRINGE SUBCUT (05:26)
[2024-07-07] MEDS: 0.9 % Sodium Chloride 1,000 ML 100 ML IVCONT (05:27)
[2024-07-07] MEDS: hydrALAZINE HCl 20 MG/ML VIAL IVPUSH (05:27)
[2024-07-07 05:56] LABS: Hematocrit 40.5 % (37.0-47.0); Hemoglobin 13.2 g/dl (12.0-16.0); Mean Corpuscular HGB Conc 32.6 g/dl (31.0-35.0); Mean Corpuscular Volume 85.8 fL (80.0-98.0); Mean Platelet Volume 11.2 fL (9.4-12.3); Platelet Count 171 X10*3/uL (160-400); Red Blood Count 4.72 X10*6/uL (4.20-5.50); Red Cell Distribution Width 14.6 % (11.0-16.0); White Blood Count 6.6 X10*3/uL (4.8-10.8)
--- NOTE | 2024-07-07 06:17 | MHC.EDTECH ---
pt observed some redness and irritation in genital and recal area, barrier cream applied. Pt states she brought adult diapers but taken off, changed and purewick applied and working well.
[2024-07-07 06:21] LABS: Alanine Aminotransferase 85 U/L (0-31); Albumin Level 3.8 g/dL (3.5-5.0); Anion Gap 15 (12-20); Aspartate Amino Transferase 61 U/L (5-31); Bilirubin Total 0.8 mg/dL (0.0-1.0); Blood Urea Nitrogen 16 mg/dL (9-16); Calcium 9.6 mg/dL (8.4-10.2); Carbon Dioxide 25 mmol/L (22-29); Chloride 104 mmol/L (96-108); Cholesterol 152 mg/dL (<200); Creatinine Clr Calc Pharmacy 50.6; Estimated Glomerular Filt Rate > 60; Glucose Random 75 mg/dL (60-115); HDL Cholesterol 53 mg/dL (>40); LDL Cholesterol Calculated 80 mg/dL (<100); Sodium 140 mmol/L (135-145); Total Protein 7.4 g/dL (6.5-8.0); Triglycerides 99 mg/dL (<150)
[2024-07-07 06:26] LABS: Alkaline Phosphatase 116 U/L (39-117)
[2024-07-07 06:35] LABS: Thyroid Stimulating Hormone 6.44 uIU/mL (0.32-4.0)
--- NOTE | 2024-07-07 07:00 | CA_ITS ---
Transthoracic Echocardiogram Patient (Last, First, Middle): Pretty Galindo A Gender: Female Date of : 1945 Age: 78 Procedure Date: 07/07/2024 Procedure Type: Transthoracic Echocardiogram Location: ER Height: 154.94 cm Weight: 53.98 kg BSA: 1.52 m2 Heart Rate: 62 bpm BP: 153 / 56 mmHg Political Researcher: JOSE DAVID Referring MD: Megan FORTEP-LUIS Symptoms: elevated BNP Study Quality: Adequate ECG Rhythm: Sinus Conclusions: - The left ventricular systolic function is hyperdynamic. The visually estimated ejection fraction is >70%. - There is mild calcification of the aortic valve. - There is moderate mitral annular calcification. Findings Procedure Information Contrast agent, definity, is being given per protocol without apparent complications. Left Ventricle Normal left ventricular cavity size. There is normal left ventricular wall thickness. The left ventricular systolic function is hyperdynamic. The visually estimated ejection fraction is >70%. There is no evidence of regional wall motion abnormalities. Evidence suggests grade I (mild) diastolic dysfunction. Focal hypertrophy of the basal septum. Right Ventricle Normal right ventricular cavity size and systolic function. Atria Both atria are normal in size. Aortic Valve There is mild calcification of the aortic valve. There is no aortic valve stenosis. There is no aortic valve regurgitation. Mitral Valve There is moderate mitral annular calcification. There is no mitral valve regurgitation. There is no mitral valve stenosis. Pulmonic Valve The pulmonic valve is likely normal. Tricuspid Valve Normal tricuspid valve structure. There is trace tricuspid valve regurgitation. Tricuspid regurgitation envelope is inadequate for calculation of right ventricular systolic pressure. Great Vessels The asc aorta is normal in size. Venous The inferior vena cava is normal in size and collapses greater than 50% with inspiration. Pericardium/Pleural There is no evidence of pericardial effusion. Prior Study Comparison No significant change compared to prior study dated: 07/23/2017. Measurements 2D Linear Measurements IVSd: 0.59 0.6-0.9/0.6-1.0 cm LVIDd: 4.19 3.9-5.3/4.2-5.9 cm LVIDd Index: 2.76 2.4-3.2/2.2-3.1 cm/m2 LVIDs: 2.79 2.0-3.6 cm LVPWd: 0.75 0.7-1.1 cm LA Diam: 3.30 2.7-3.8/3.0-4.0 cm LAIDs Index: 2.17 1.5-2.3 cm/m2 LV Mass: 99.18 67-162/88-224 g LV Mass Index: 65.25 43-95/49-115 g/m2 LVOT Diam: 2.00 3.0+(-)1.3 cm 2D Systolic Function EF 4C: 75.20 >55% EF 2C: 81.10 >55% EF BiP: 79.70 >55% Mitral Valve MV VTI: 0.44 MV Pk Shady: 1.26 MV Mn Shady: 0.86 MV Pk Grad: 6.00 MV Mn Grad: 3.00 MV Pk E: 1.05 MV PK A: 1.19 MV Decel Time: 292.00 E/A: 0.90 E'Lateral: 6.64 E'Medial: 6.09 E/E' Med: 17.20 E/E' Lat: 15.80 PHT: 86.00 MVA PHT: 2.56 MVA Continuity: 2.03 Decel Centre: 3.59 Aortic Valve AoV Pk Shady: 1.78 AoV Mn Shady: 1.14 AoV VTI: 0.37 AoV Pk Grad: 13.00 Aov Mn Grad: 6.00 TISHA Cont.VTI: 2.38 LVOT LVOT Pk Shady: 1.35 LVOT Mn Shady: 0.83 LVOT VTI: 0.28 LVOT Pk Grad: 7.00 LVOT Mn Grad: 4.00 LVOT Diam: 2.00 LVOT Area: 3.14 Diastolic Function MV Pk E: 1.05 MV Pk A: 1.19 E/A: 0.90 E'Medial: 6.09 E/E' Med: 17.20 E' Laterial: 6.64 E/E' Lat: 15.80 Right Ventricle TAPSE (mm): 23.50 TVS' Shady: 14.00 Tricuspid Valve RA Press: 3.00 Great Vessels Aorta Sinus of Valsalva: 2.40 2.0-3.5 cm Ao Asc: 2.40 2.1-3.4 cm Pulmonary Valve PV Pk Shady: 0.89 Peak PV Grad: 3.00 Updated in Other Vendor System with Status of Final Avinash Ellis MD electronically signed on 07/07/2024 12:03:20 PM with status of Final
--- NOTE | 2024-07-07 07:25 | PC.NURSE ---
nitro patch removed per MAR. BPs more stable at this time.
[2024-07-07 08:38] LABS: HBS Num1 0.57 mIU/mL (0-7.99); HBc Num1 0.15 S/CO (0.00-0.79); HBsAGNum1 0.34 S/CO (0.00-0.99); Hepatitis A Antibody IgM 0.14 Index (0-0.79); Hepatitis B Core Antibody Nonreactive (Nonreactive); Hepatitis B Surface Antigen Negative (Negative); ~HepC Num1 0.29 S/CO (0.00-0.79); ~Hepatitis A Antibody IgM Nonreactive (Nonreactive); ~Hepatitis B Surface Antibody NONREACTIVE (Nonreactive); ~Hepatitis C Antibody Nonreactive (Nonreactive)
--- NOTE | 2024-07-07 08:51 | PHA.MEDREC ---
Addendum entered by Amanda Wiley RPh 07/07/24 09:20: Med rec was reviewed by [facility]. Original Note: Pharmacy Consult ? Medication Reconciliation Pharmacy has completed the medication reconciliation. Spoke to patient to confirm med list. All medications match claims.
[2024-07-07] MEDS: amLODIPine Besylate 5 MG TABLET PO (09:06)
[2024-07-07] MEDS: cefTRIAXone sodium 1 GM VIAL IVPUSH (09:07)
--- NOTE | 2024-07-07 09:19 | PC.NURSE ---
Pt alert this morning, answering questions. Breathing even and unlabored, pt on her baseline O2 2L NC. Pt took her meds whole with no issues. Ate her breakfast independently. NS infusing. Purewick in place, pt dry at this time. Pt requests to sleep at this time due to being tired.
--- NOTE | 2024-07-07 09:23 | P.PNIM_ITS ---
Subjective Subjective Date of Service: 07/07/24 Interval History: weakness, nausea Physical Exam 2 Vital Signs: Vital Signs: Last Vital Signs Temp 97.9 F 07/07/24 06:07 Pulse 88 07/07/24 07:25 Resp 16 07/07/24 07:25 BP 164/62 H 07/07/24 09:06 Pulse Ox 98 07/07/24 06:55 O2 Del Method Nasal Cannula 07/07/24 06:55 O2 Flow Rate 2 07/07/24 06:55 Oxygen Flow Rate 2 07/06/24 16:39 BMI result Body Mass Index 22.5 General: AO X 3, frail appearing Resp: diminshed bilateral, no accessory muscles used CVS: S1,S2,RRR GI: soft, non tender, non distended Neuro: motor grossly intact, alert Objective Data Active Medications Acetaminophen (Acetaminophen 325 Mg Tablet) 650 mg PO Q6H PRN PRN Reason: Pain, Mild 1-3,fever,headache Albuterol/Ipratropium (Albuterol/Iprat 2.5/0.5mg 3 Ml Ampul.Neb) 3 ml INHALE Q4H PRN PRN Reason: Shortness of Breath/Wheezing Amlodipine Besylate (Amlodipine Besylate 5 Mg Tablet) 5 mg PO DAILY [facility]; Protocol Last Admin: 07/07/24 09:06 Dose: 5 mg Documented By: JENISE Calcium Carbonate (Calcium Carbonate 750 Mg Tab.Chew) 750 mg PO Q4H PRN PRN Reason: Heartburn Ceftriaxone Sodium (Ceftriaxone Sodium 1 Gm Vial) 1 gm IVPUSH Q24H [facility] Last Admin: 07/07/24 09:07 Dose: 1 gm Documented By: JENISE Enoxaparin Sodium (Enoxaparin Sodium 40 Mg/0.4 Ml Syringe) 40 mg SUBCUT DAILY [facility] Last Admin: 07/07/24 05:26 Dose: 40 mg Documented By: DEJA Sodium Chloride (Ns) 1,000 mls @ 100 mls/hr IVCONT .Q10H [facility] Stop: 07/07/24 13:59 Last Admin: 07/07/24 05:27 Dose: 100 mls/hr Documented By: DEJA Magnesium Hydroxide (Milk Of Magnesia 30 Ml Oral.Susp) 30 ml PO DAILY PRN PRN Reason: Constipation Melatonin (Melatonin 3 Mg Tablet) 6 mg PO BEDTIME PRN PRN Reason: Insomnia Ondansetron HCl (Ondansetron Hcl 4 Mg/2 Ml Vial) 4 mg IVPUSH Q8H PRN PRN Reason: Nausea and Vomiting Senna (Sennosides 8.6 Mg Tablet) 17.2 mg PO BEDTIME BRENT Sodium Chloride (0.9 % Sodium Chloride Flush 3 Ml Syringe) 3 ml IVFLUSH QSHIFT BRENT Last Admin: 07/07/24 07:22 Dose: Not Given Documented By: JENISE Non-Admin Reason: IV Running Labs 07/07/24 05:50 07/07/24 05:50 Labs: Laboratory Results - last 24 hr 07/06/24 07/07/24 07/07/24 16:58 01:00 05:50 MCV 87.1 85.8 MCH 27.6 28.0 MCHC 31.7 32.6 RDW 14.7 14.6 Plt Count 201 171 MPV 12.1 11.2 Immature Gran % (Auto) 0.2 Neut % (Auto) 79.6 H Lymph % (Auto) 11.6 L [place] % (Auto) 6.2 Eos % (Auto) 1.7 Baso % (Auto) 0.7 Lymph # (Auto) 0.7 L [place] # (Auto) 0.4 Eos # (Auto) 0.1 Baso # (Auto) 0.0 Abs Immat Gran (auto) 0.01 Absolute Neuts (auto) 4.7 Absolute Nucleated RBC 0.000 0.000 Nucleated RBC % (auto) 0.0 0.0 Anion Gap 11 L 15 Estim Creat Clear Calc 47.1 50.6 Estimated GFR > 60 > 60 Random Glucose 82 75 Calcium 9.5 9.6 Magnesium 1.8 Total Bilirubin 0.7 0.8 Direct Bilirubin 0.2 AST 96 H 61 H ALT 111 H 85 H Alkaline Phosphatase 115 116 B-Natriuretic Peptide 108 H Total Protein 7.6 7.4 Albumin 3.8 3.8 Triglycerides 99 Cholesterol 152 LDL Cholesterol, Calc 80 HDL Cholesterol 53 TSH 6.44 H Urine Color Yellow Urine Appearance Clear Urine pH 5.5 Ur Specific [place] 1.020 Urine Protein 30 (1+) H Urine Glucose (UA) Negative Urine Ketones Trace Urine Blood Moderate (2+) H Urine Nitrite Negative Ur Leukocyte Esterase Small (1+) H Urine RBC >20 H Urine WBC 11-20 H Ur Squamous Epith Cells 0-2 Urine Bacteria None Seen Hyaline Casts 0-2 Hepatitis A IgM Ab Nonreactive Hep Bs Antigen Negative Hep Bs Antibody NONREACTIVE Hep B Core Total Ab Nonreactive Hepatitis C Ab (EIA) Nonreactive Influenza Type A (PCR) NEGATIVE Influenza Type B (PCR) NEGATIVE RSV RNA Qual (PCR) NEGATIVE SARS-CoV-2 RNA (RT-PCR) NEGATIVE Assessment and Plan (1) Generalized anxiety disorder: Status: Acute Plan 78F PMH epilepsy, hyperlipidemia, hypertension, allergic rhinitis, chronic hypoxic respiratory failure due to COPD on 2 L home O2, osteoporosis, IBS, mood disorder, memory impairment, Ford's esophagus, GERD, hypothyroid presented with severe weakness and confusion noted to have systolic blood pressures over 200 Hypertensive urgency Resolved Continue amlodipine Monitor Weakness and acute metabolic encephalopathy due to urinary tract infection Continue ceftriaxone, follow up cultures PT eval Epilepsy Continue Keppra Transaminitis Ultrasound with chronic biliary dilatation, outpatient MRCP and GI follow up Viral hepatitis negative DVT prophylaxis with Lovenox Full code reason for continued hospitalization: Cultures Quality Stroke Does the patient have a stroke diagnosis?: No Reason for No Anti-thrombotic by Day Two: N/A - Med Ordered VTE Prior VTE?: No VTE Risk Level:: Medical - moderate - high VTE Device Contraindication: Treatment Not Indicated VTE Drug Contraindication: N/A - Med Ordered
[2024-07-07] MEDS: levETIRAcetam 500 MG TABLET PO ×2 (09:57→19:36)
--- NOTE | 2024-07-07 11:39 | MHC.CM.PN ---
FAMILY LIVES WITH PT SHE HAD NO SERVICES AND HAS OWN [facility] HOME DC PLAN HOME NO SERVICES
[2024-07-07] MEDS: Losartan Potassium 50 MG TABLET PO (13:27)
--- NOTE | 2024-07-07 18:05 | PC.NURSE ---
pt bp noted to be elevated 180s systolic , md made aware , no new orders , pt resting comfortably, no complaints of pain or dizziness.
[2024-07-07] MEDS: Sennosides 8.6 MG TABLET 17.2 MG PO (19:35)
[2024-07-07] MEDS: Atorvastatin Calcium 10 MG TABLET PO (19:35)
[2024-07-07] MEDS: Acetaminophen 325 MG TABLET 650 MG PO (19:35)
[2024-07-07] MEDS: Melatonin 3 MG TABLET 6 MG PO (19:35)
[2024-07-07] MEDS: Memantine HCl 10 MG TABLET PO (19:35)
[2024-07-07] MEDS: Loratadine 10 MG TABLET PO (19:36)
[2024-07-07] MEDS: 0.9 % Sodium Chloride Flush 3 ML SYRINGE IVFLUSH (19:36)
[2024-07-07] MEDS: ondansetron HCL 4 MG/2 ML VIAL IVPUSH (19:51)
[2024-07-08 03:12] VITALS: BP 146/79; PULSE 60; RESP 18; TEMP 36.9; O2SAT 98
[2024-07-08] MEDS: Levothyroxine Sodium 112 MCG TABLET PO (05:51)
[2024-07-08] MEDS: Omeprazole 20 MG CAPSULE.DR PO (05:51)
[2024-07-08 06:51] LABS: Hematocrit 38.1 % (37.0-47.0); Hemoglobin 12.3 g/dl (12.0-16.0); Mean Corpuscular HGB Conc 32.3 g/dl (31.0-35.0); Mean Corpuscular Volume 86.8 fL (80.0-98.0); Platelet Count 173 X10*3/uL (160-400); Red Blood Count 4.39 X10*6/uL (4.20-5.50); Red Cell Distribution Width 14.5 % (11.0-16.0); White Blood Count 6.2 X10*3/uL (4.8-10.8)
[2024-07-08 06:56] LABS: Anion Gap 12 (12-20); Blood Urea Nitrogen 16 mg/dL (9-16); Calcium 9.2 mg/dL (8.4-10.2); Carbon Dioxide 27 mmol/L (22-29); Chloride 105 mmol/L (96-108); Creatinine Clr Calc Pharmacy 49.8; Estimated Glomerular Filt Rate > 60; Glucose Random 86 mg/dL (60-115); Potassium 4.2 mmol/L (3.3-5.1); Sodium 140 mmol/L (135-145)
[2024-07-08] MEDS: 0.9 % Sodium Chloride Flush 3 ML SYRINGE IVFLUSH ×3 (06:58→20:41)
[2024-07-08 07:24] VITALS: BP 160/69; PULSE 52; RESP 18; TEMP 36.4; O2SAT 99
[2024-07-08] MEDS: Memantine HCl 10 MG TABLET PO ×2 (08:27→20:40)
[2024-07-08] MEDS: levETIRAcetam 500 MG TABLET PO ×2 (08:27→20:40)
[2024-07-08] MEDS: Losartan Potassium 50 MG TABLET PO (08:27)
[2024-07-08] MEDS: Sertraline HCL 50 MG TABLET PO (08:27)
[2024-07-08] MEDS: cefTRIAXone sodium 1 GM VIAL IVPUSH (08:27)
[2024-07-08] MEDS: hydroCHLOROthiazide 25 MG TABLET PO (08:28)
[2024-07-08] MEDS: amLODIPine Besylate 5 MG TABLET PO (08:28)
[2024-07-08] MEDS: Enoxaparin Sodium 40 MG/0.4 ML SYRINGE SUBCUT (08:28)
--- NOTE | 2024-07-08 12:06 | HO.PM.IMPN ---
Subjective Subjective Date of Service: 07/08/24 Interval History: feels little better still weak BP better controlled pending cultures no other events Review of Systems Review of Systems: Yes all other systems are reviewed and are negative Physical Exam Vital Signs: Vital Signs: Last Vital Signs Temp 97.6 F 07/08/24 07:24 Pulse 52 07/08/24 07:24 Resp 18 07/08/24 07:24 BP 160/69 H 07/08/24 07:24 Pulse Ox 99 07/08/24 07:24 O2 Del Method Nasal Cannula 07/08/24 07:24 O2 Flow Rate 2.0 07/08/24 07:24 Oxygen Flow Rate 2 07/06/24 16:39 BMI result Body Mass Index 22.5 Const: Other: Constitutional : interactive, not in distress Cardiovascular : no JVP, no lower extremity edema Respiratory : bilateral chest movement, not in resp distress Gastrointestinal: soft, lax, Non tender Skin : Warm, Dry Neurological : Alert & oriented , No focal deficit Objective Data Active Medications Acetaminophen (Acetaminophen 325 Mg Tablet) 650 mg PO Q6H PRN PRN Reason: Pain, Mild 1-3,fever,headache Last Admin: 07/07/24 19:35 Dose: 650 mg Documented By: SHELLEY Albuterol Sulfate (Albuterol Sulfate 90 Mcg 8 Gm Inhaler) 2 puff INHALE Q6H PRN PRN Reason: wheezing Albuterol/Ipratropium (Albuterol/Iprat 2.5/0.5mg 3 Ml Ampul.Neb) 3 ml INHALE Q4H PRN PRN Reason: Shortness of Breath/Wheezing Amlodipine Besylate (Amlodipine Besylate 5 Mg Tablet) 5 mg PO DAILY BRENT; Protocol Last Admin: 07/08/24 08:28 Dose: 5 mg Documented By: SONIDO Atorvastatin Calcium (Atorvastatin Calcium 10 Mg Tablet) 10 mg PO BEDTIME BRENT Last Admin: 07/07/24 19:35 Dose: 10 mg Documented By: SHELLEY Calcium Carbonate (Calcium Carbonate 750 Mg Tab.Chew) 750 mg PO Q4H PRN PRN Reason: Heartburn Ceftriaxone Sodium (Ceftriaxone Sodium 1 Gm Vial) 1 gm IVPUSH Q24H [facility] Last Admin: 07/08/24 08:27 Dose: 1 gm Documented By: SONIDO Enoxaparin Sodium (Enoxaparin Sodium 40 Mg/0.4 Ml Syringe) 40 mg SUBCUT DAILY [facility] Last Admin: 07/08/24 08:28 Dose: 40 mg Documented By: SONIDO Hydrochlorothiazide (Hydrochlorothiazide 25 Mg Tablet) 25 mg PO DAILY [facility]; Protocol Last Admin: 07/08/24 08:28 Dose: 25 mg Documented By: SONIDO Levetiracetam (Levetiracetam 500 Mg Tablet) 500 mg PO BID [facility] Last Admin: 07/08/24 08:27 Dose: 500 mg Documented By: SONIDO Levothyroxine Sodium (Levothyroxine Sodium 112 Mcg Tablet) 112 mcg PO DAILY@0600 [facility] Last Admin: 07/08/24 05:51 Dose: 112 mcg Documented By: SHELLEY Loratadine (Loratadine 10 Mg Tablet) 10 mg PO BEDTIME [facility] Last Admin: 07/07/24 19:36 Dose: 10 mg Documented By: SHELLEY Losartan Potassium (Losartan Potassium 50 Mg Tablet) 50 mg PO DAILY [facility]; Protocol Last Admin: 07/08/24 08:27 Dose: 50 mg Documented By: SONIDO Magnesium Hydroxide (Milk Of Magnesia 30 Ml Oral.Susp) 30 ml PO DAILY PRN PRN Reason: Constipation Melatonin (Melatonin 3 Mg Tablet) 6 mg PO BEDTIME PRN PRN Reason: Insomnia Last Admin: 07/07/24 19:35 Dose: 6 mg Documented By: SHELLEY Memantine (Memantine Hcl 10 Mg Tablet) 10 mg PO BID [facility] Last Admin: 07/08/24 08:27 Dose: 10 mg Documented By: SONIDO Nystatin (Nystatin Powder 15 Gm Bottle) 1 appl TOPICAL BID [facility]; Protocol Omeprazole (Omeprazole 20 Mg Capsule.) 20 mg PO DAILY@0630 [facility] Last Admin: 07/08/24 05:51 Dose: 20 mg Documented By: SHELLEY Ondansetron HCl (Ondansetron Hcl 4 Mg/2 Ml Vial) 4 mg IVPUSH Q8H PRN PRN Reason: Nausea and Vomiting Last Admin: 07/07/24 19:51 Dose: 4 mg Documented By: SHELLEY Senna (Sennosides 8.6 Mg Tablet) 17.2 mg PO BEDTIME [facility] Last Admin: 07/07/24 19:35 Dose: 17.2 mg Documented By: MARKQC Sertraline HCl (Sertraline Hcl 50 Mg Tablet) 50 mg PO DAILY [facility] Last Admin: 07/08/24 08:27 Dose: 50 mg Documented By: SONIDO Sodium Chloride (0.9 % Sodium Chloride Flush 3 Ml Syringe) 3 ml IVFLUSH QSHIFT [facility] Last Admin: 07/08/24 06:58 Dose: 3 ml Documented By: SONIDO Labs 07/08/24 06:28 07/08/24 06:28 Labs: Laboratory Results - last 24 hr 07/08/24 06:28 MCV 86.8 MCH 28.0 MCHC 32.3 RDW 14.5 Plt Count 173 MPV 12.0 Absolute Nucleated RBC 0.000 Nucleated RBC % (auto) 0.0 Anion Gap 12 Estim Creat Clear Calc 49.8 Estimated GFR > 60 Random Glucose 86 Calcium 9.2 Microbiology Microbiology Results: Microbiology 07/07/24 01:00 Urine Culture - Final Urine clean catch - Clean Catch Midstream No growth. Assessment and Plan (1) Transaminitis: Status: Acute (2) Acute UTI: Status: Acute (3) Hypertensive urgency: Status: Acute (4) Weakness: Status: Acute Plan 78F PMH epilepsy, hyperlipidemia, hypertension, allergic rhinitis, chronic hypoxic respiratory failure due to COPD on 2 L home O2, osteoporosis, IBS, mood disorder, memory impairment, Ford's esophagus, GERD, hypothyroid presented with severe weakness and confusion noted to have systolic blood pressures over 200 Hypertensive urgency BP better controlled Continue amlodipine Add HCT 25 mg daily Continue New Losartan 50 mg Monitor Weakness and acute metabolic encephalopathy due to urinary tract infection Continue ceftriaxone, follow up cultures PT eval rec VNA Epilepsy Continue Keppra Transaminitis Ultrasound with chronic biliary dilatation, outpatient MRCP and GI follow up Viral hepatitis negative DVT prophylaxis with Lovenox Full code reason for continued hospitalization: pending final Cultures Quality Stroke Does the patient have a stroke diagnosis?: No Reason for No Anti-thrombotic by Day Two: N/A - Med Ordered VTE Prior VTE?: No VTE Risk Level:: Medical - moderate - high VTE Device Contraindication: Treatment Not Indicated VTE Drug Contraindication: N/A - Med Ordered
[2024-07-08] MEDS: Nystatin Powder 15 GM BOTTLE 1 APPL TOPICAL ×2 (13:53→20:43)
[2024-07-08 14:55] VITALS: O2SAT 89
[2024-07-08 15:15] VITALS: BP 148/67; PULSE 58; RESP 17; TEMP 36.7; O2SAT 98
[2024-07-08 19:29] VITALS: BP 129/65; PULSE 79; RESP 20; TEMP 36.3; O2SAT 90
[2024-07-08] MEDS: Acetaminophen 325 MG TABLET 650 MG PO (20:40)
[2024-07-08] MEDS: Sennosides 8.6 MG TABLET 17.2 MG PO (20:40)
[2024-07-08] MEDS: Melatonin 3 MG TABLET 6 MG PO (20:40)
[2024-07-08] MEDS: Atorvastatin Calcium 10 MG TABLET PO (20:41)
[2024-07-08] MEDS: Loratadine 10 MG TABLET PO (20:41)
[2024-07-09 03:34] VITALS: BP 126/60; PULSE 80; RESP 20; TEMP 36.3; O2SAT 91
[2024-07-09] MEDS: Levothyroxine Sodium 112 MCG TABLET PO (05:43)
[2024-07-09] MEDS: Omeprazole 20 MG CAPSULE.DR PO (05:43)
[2024-07-09 06:27] LABS: MANUAL DIFF FLAG NO
[2024-07-09 06:37] LABS: Basophils Percent Auto 0.7 % (0-2); Eosinophils Absolute Auto 0.2 X10*3/uL (0.0-0.4); Eosinophils Percent Auto 4.4 % (0-4); Hematocrit 38.9 % (37.0-47.0); Hemoglobin 12.3 g/dl (12.0-16.0); Imm Gran Abs Auto 0.02 X10*3/uL (0.00-0.03); Imm Gran Pct Auto 0.5 % (0.0-0.4); Lymphocytes Absolute Auto 1.4 X10*3/uL (1.2-4.9); Lymphocytes Percent Auto 31.1 % (20-40); Mean Corpuscular HGB Conc 31.6 g/dl (31.0-35.0); Mean Corpuscular Hemoglobin 27.5 pg (27.0-33.0); Mean Corpuscular Volume 86.8 fL (80.0-98.0); Mean Platelet Volume 12.2 fL (9.4-12.3); Monocytes Absolute Auto 0.6 X10*3/uL (0.1-1.2); Monocytes Percent Auto 13.6 % (2-11); Neutrophils Absolute Auto 2.2 x10*3/uL (2.0-8.3); Neutrophils Percent Auto 49.7 % (45-73); Platelet Count 192 X10*3/uL (160-400); Red Blood Count 4.48 X10*6/uL (4.20-5.50); Red Cell Distribution Width 14.6 % (11.0-16.0); White Blood Count 4.3 X10*3/uL (4.8-10.8)
[2024-07-09 06:58] LABS: Anion Gap 12 (12-20); Blood Urea Nitrogen 21 mg/dL (9-16); Calcium 9.4 mg/dL (8.4-10.2); Carbon Dioxide 30 mmol/L (22-29); Chloride 103 mmol/L (96-108); Creatinine Clr Calc Pharmacy 41.7; Estimated Glomerular Filt Rate > 60; Glucose Random 101 mg/dL (60-115); Potassium 3.8 mmol/L (3.3-5.1); Sodium 141 mmol/L (135-145)
[2024-07-09 07:51] VITALS: BP 173/77; PULSE 49; RESP 20; TEMP 36.3; O2SAT 97
[2024-07-09 09:25] VITALS: BP 166/74; PULSE 46
[2024-07-09] MEDS: Sertraline HCL 50 MG TABLET PO (09:27)
[2024-07-09] MEDS: hydroCHLOROthiazide 25 MG TABLET PO (09:27)
[2024-07-09] MEDS: levETIRAcetam 500 MG TABLET PO (09:27)
[2024-07-09] MEDS: 0.9 % Sodium Chloride Flush 3 ML SYRINGE IVFLUSH (09:27)
[2024-07-09] MEDS: Memantine HCl 10 MG TABLET PO (09:27)
[2024-07-09] MEDS: amLODIPine Besylate 5 MG TABLET PO (09:27)
[2024-07-09] MEDS: Losartan Potassium 50 MG TABLET PO (09:27)
[2024-07-09] MEDS: cefTRIAXone sodium 1 GM VIAL IVPUSH (09:28)
[2024-07-09] MEDS: Enoxaparin Sodium 40 MG/0.4 ML SYRINGE SUBCUT (09:28)
[2024-07-09] MEDS: Nystatin Powder 15 GM BOTTLE 1 APPL TOPICAL (09:28)
--- NOTE | 2024-07-09 10:57 | MHC.CM.PN ---
Per MD rounds patient medically cleared for dc home w/ new [facility] services. [facility] will transport home at 1pm. RN aware. Last IMM 07/07.
--- NOTE | 2024-07-09 11:21 | P.DS_ITS ---
DS: Providers Provider Date of Service: 07/09/24 Date of admission: 07/07/24 03:54 Date of discharge: 07/09/24 Primary care physician: Shane Nelson MD DS: Diagnosis Discharge Diagnosis (1) Transaminitis: Status: Acute (2) Hypertensive urgency: Status: Acute (3) Weakness: Status: Acute (4) Elevated brain natriuretic peptide (BNP) level: Status: Acute DS: Summary Hospital Course Hospital Course: Admission note HPI Patient is a 78-year-old female with significant past medical history to include seizure disorder on Keppra, hyperlipidemia, hypertension, allergic rhinitis, COPD on oxygen at home 2 L nasal cannula, osteoporosis, IBS, anxiety and depression, vitamin-D deficiency, memory impairment, Ford's esophagus, GERD and hypothyroidism was brought in by EMS earlier after patient was seen by her grandson and noted that patient had been bed-bound for approximately 24-48 hours with severe weakness and mildly altered mental status with poor memory. Patient was evaluated in the emergency department and determined to have a urinary tract infection, urine culture is pending. Patient also noted to have hypertensive urgency with a systolic blood pressure over 200. Patient currently states that she never had issues with her blood pressure in the past. Patient does not believe she has renal artery stenosis and is normally compliant with her usual medications. In addition patient was noted to be slightly bradycardic with an EKG that was normal in terms of [place] interval and QTC. Patient does not appear to be on any AV emma blocking agents prior to ED visit. Patient currently denies any chest pain, shortness of breath at rest, headaches, visual changes, nausea or vomiting. Patient has received nitro paste, labetalol IV and oral hydralazine. Blood pressure rechecked and is currently running 190/79. Patient now receiving IV hydralazine 20 mg. We will also resume patient's amlod ipine. Patient's troponin was negative and BNP was elevated. There is no record of any recent echocardiogram. Chest x-ray negative for cardiomegaly or signs of pleural effusion, pulmonary edema or pneumonia. Echocardiogram will be ordered noting wide pulse pressure. Patient will be admitted for IV ceftriaxone for UTI, await culture results. Patient does not exhibit signs of sepsis and does not meet the criteria for SIRS. Patient also admitted for hypertensive urgency. Can consider consultation with Cardiology and/or Nephrology if needed. Renal function is stable. Renal ultrasound done in December of 2023 with no evidence of renal artery stenosis. We will continue oral and IV medication regimen to help control blood pressure. Patient has had past visits at [facility] for near-syncope, syncope, orthostatic hypotension. In addition patient has transaminitis. Patient is seen November 2023 in the ED and was found to have common bile duct dilatation and it was requested that patient have an MRCP as an outpatient. There currently is no record of an MRCP in the EMR. Patient is not sure if she actually had the test done. Wiill reorder ultrasound of the abdomen for further evaluation. Hospital course The patient was treated for Hypertensive urgency as BP better controlled with home dose amlodipine abd Addition of HCT 25 mg daily along with Losartan 50 mg. to Monitor at home and follow with PCP for further adjustment of medications. to repeat BMP next week. For Weakness and acute metabolic encephalopathy due to urinary tract infection but urine cultures came negative. likely AMS from hypertensive urgency. received 3 doses of Ceftriaxone. PT evaluation recommended VNA. For her Epilepsy she Continued Keppra Noticed to have recurrent mildly elevated Transaminitis with Ultrasound with chronic biliary dilatation, outpatient MRCP and GI follow up. LFT trended down with no reported pain and Viral hepatitis negative. To do MRCP and GI follow up as outpatient. Discharge plan Low sodium diet Start Losartan and Hydrochlorothiazide for better blood pressure control increase physical therapy as tolerated monitor and write BP for next week and report the readings to PCP for further adjustment of home medications To repeat blood test next week Time Attestation Discharge Coordination Time (in mins): 42 Quality: Safe Use of Opioids Does Pt have an Active Cancer Diagnosis on the Problem List?: No Quality: Stroke Does the patient have a stroke diagnosis?: No Physical Exam Vital Signs: Vital Signs: Last Vital Signs Temp 97.3 F 07/09/24 07:51 Pulse 46 L 07/09/24 09:25 Resp 20 07/09/24 07:51 BP 166/74 H 07/09/24 09:25 Pulse Ox 97 07/09/24 07:51 O2 Del Method Nasal Cannula 07/09/24 07:51 O2 Flow Rate 2 07/09/24 07:51 Oxygen Flow Rate 2 07/06/24 16:39 BMI result Body Mass Index 22.5 Const: Other: Constitutional : interactive, not in distress Cardiovascular : no JVP, no lower extremity edema Respiratory : bilateral chest movement, not in resp distress Gastrointestinal: soft, lax, Non tender Skin : Warm, Dry Neurological : Alert & oriented , No focal deficit DS: Data Data Completed and Pending Labs on day of discharge: Laboratory Results - last 24 hr 07/09/24 05:40 WBC 4.3 L RBC 4.48 Hgb 12.3 Hct 38.9 MCV 86.8 MCH 27.5 MCHC 31.6 RDW 14.6 Plt Count 192 MPV 12.2 Immature Gran % (Auto) 0.5 H Neut % (Auto) 49.7 Lymph % (Auto) 31.1 [place] % (Auto) 13.6 H Eos % (Auto) 4.4 H Baso % (Auto) 0.7 Lymph # (Auto) 1.4 [place] # (Auto) 0.6 Eos # (Auto) 0.2 Baso # (Auto) 0.0 Abs Immat Gran (auto) 0.02 Absolute Neuts (auto) 2.2 Absolute Nucleated RBC 0.000 Nucleated RBC % (auto) 0.0 Sodium 141 Potassium 3.8 Chloride 103 Carbon Dioxide 30 H Anion Gap 12 BUN 21 H Creatinine 0.81 Estim Creat Clear Calc 41.7 Estimated GFR > 60 Random Glucose 101 Calcium 9.4 Imaging Chest x-ray: Radiologist's impression: IMPRESSION: Cholecystectomy with similar intrahepatic and extrahepatic biliary ductal dilation. Discharge Plan Discharge Anticipated Discharge Date/Time: 07/09/24 11:15 Patient Disposition: Home Health Service Discharge Diagnosis: Uncontrolled hypertension Referrals: Edith JEFFERSON [Outside] - 1 Week Yamila Cruz MD [Physician] - 1 Week (outpatient MRCP and GI follow up for CBD dilatation and transaminitis ) Shane Nelson MD [Primary Care Provider] - 1 Week Discharge Medications: New losartan 50 mg Tablet 50 mg PO DAILY 90 Days Qty: 90 0RF Protocol: Hold for SBP< HOLD for SBP < : 90 hydrochlorothiazide 25 mg Tablet 25 mg PO DAILY Qty: 90 0RF Protocol: Hold for SBP< HOLD for SBP < : 90 nystatin [Nyamyc] 100,000 unit/gram Powder 1 appl topical BID Qty: 30 1RF Protocol: Apply to: Apply to: affected areas Continued levothyroxine 112 mcg tablet 112 mcg PO DAILY 90 Days Qty: 90 3RF sertraline 50 mg tablet 50 mg PO DAILY Qty: 90 1RF simvastatin 20 mg tablet 20 mg PO BEDTIME 90 Days Qty: 90 2RF cetirizine 10 mg capsule 10 mg PO BEDTIME Qty: 90 0RF omeprazole 20 mg capsule,delayed release(DR/EC) 20 mg PO DAILY Qty: 90 1RF levetiracetam 500 mg tablet 500 mg PO BID diphenoxylate-atropine 2.5-0.025 mg tablet 1 - 2 tab PO BID PRN (Reason: Diarrhea) albuterol sulfate 90 mcg/actuation HFA aerosol inhaler 2 puff INHALATION Q6H PRN (Reason: wheezing) (DME) blood pressure monitor [Blood Pressure Kit] Kit See Rx Instructions .ROUTE .MEDSUPPLY Qty: 1 0RF Rx Instructions: As directed memantine 10 mg tablet 10 mg PO BID Qty: 180 2RF amlodipine 5 mg tablet 5 mg PO DAILY Qty: 90 3RF (DME) POCKET CHAMBER Spacer See Rx Instructions .Route Qty: 1 0RF Rx Instructions: As directed Discharge Orders: Discharge Order (Routine); Ordered 07/09/24 Ordered By: Magdalene Garcia Diet: Low salt diet Activity on Discharge: As tolerated Stand Alone Forms: Patient Portal Discharge page Print Language: Malay Other Ambulatory Orders: Basic Metabolic Panel (Routine) Timeframe: 1 Week Facility: [facility] - Location: Laboratory Ordered By: Magdalene Garcia MR MRCP (Routine) Timeframe: 1 Week Facility: [facility] - Location: MRI Ordered By: Magdalene Garcia Care Plan Goals: Low sodium diet Start Losartan and Hydrochlorothiazide for better blood pressure control increase physical therapy as tolerated monitor and write BP for next week and report the readings to PCP for further adjustment of home medications To repeat blood test next week You will need outpatient MRCP and GI follow up for further work up Health Concerns: Uncontrolled hypertension Plan of Treatment: Losartan, Hydrochlorothiazide PCP follow up Assessment: as above
--- NOTE | 2024-07-09 11:46 | W.MHC.F2F ---
Service Date Service Date: 07/09/24 Encounter Date of encounter: 07/09/24 Reasons for Services Signs and symptoms assessed: PHysical deconditioning Reason for group home: teach disease management and other (Monitor BP ) Reason for physical therapy: home safety and mobility and therapeutic exercises Homebound: Leaving the home is medically contraindicated at this time without the asist of a device and/or another person due th the listed conditions above and below. Reason homebound: unsteady gait / fall risk and unable to drive Certification: Based on the above findings, I certify that this patient is confined to the home and needs intermittent group home care, physical therapy and/or speech therapy, or continues to need occupational therapy. The patient is under my care, and I have initiated the establishment of the plan of care. The patient will be followed by a physician who will periodically review the plan of care. Time Spent With Patient Time: Total time managing care of this patient today ____ minutes.
[2024-07-09 15:18] VITALS: BP 130/65; PULSE 57; RESP 16; TEMP 36.2; O2SAT 100
== END 2024-07-09 16:31 | disposition home health service (06) | DRG 304 ==
LOC: HO.ED 07-07 02:04 → HO.EDOVER 07-07 05:42 → HO.S3 07-07 13:37
PROVIDERS: Internal Medicine; Admitting Provider Nurse Practitioner Family; Emergency Provider Emergency Medicine; PCP Internal Medicine; Visit Provider Student in an Organized Health Care Education/Training Program
DX: I16.0 Hypertensive urgency (principal); G93.41 Metabolic encephalopathy; J96.11 Chronic respiratory failure with hypoxia; I10 Essential (primary) hypertension; K83.8 Other specified diseases of biliary tract; E78.5 Hyperlipidemia, unspecified; J44.9 Chronic obstructive pulmonary disease, unspecified; G40.909 Epilepsy, unspecified, not intractable, without status epilepticus; Z20.822 Contact with and (suspected) exposure to COVID-19; Z99.81 Dependence on supplemental oxygen; Z87.891 Personal history of nicotine dependence; Z79.890 Hormone replacement therapy; Z79.899 Other long term (current) drug therapy
CPT/HCPCS: 0241U; 36415; 71045; 76705; 80048; 80053; 80061; 80076; 81001; 83735; 83880; 84443; 84484; 85025; 85027; 86704; 86706; 86709; 86803; 87086; 87340; 93005; 93306; 97116; 97162; 99285; J0360; J0696; J1650; J2405; Q9957

== ENCOUNTER → 2024-07-06 16:46 | Outpatient (BNV) | payer MEDICARE, SELFPAY | PROVIDERS: Admitting Provider Nurse Practitioner Family; Emergency Provider Emergency Medicine; PCP Internal Medicine; Visit Provider Internal Medicine | DX: R53.1 Weakness (principal) | CPT/HCPCS: 93010 ==

== ENCOUNTER → 2024-07-06 16:56 | Outpatient (BNV) | payer MEDICARE, SELFPAY | PROVIDERS: Emergency Provider Emergency Medicine; PCP Internal Medicine; Visit Provider Radiology Diagnostic Radiology | DX: R53.1 Weakness (principal) | CPT/HCPCS: 71045 ==

== ENCOUNTER → 2024-07-06 17:03 | Outpatient (BNV) | payer MEDICARE, SELFPAY | PROVIDERS: Emergency Provider Emergency Medicine; PCP Internal Medicine; Visit Provider Nurse Practitioner Family | DX: R74.01 Elevation of levels of liver transaminase levels (principal); I16.0 Hypertensive urgency; R53.1 Weakness; R79.89 Other specified abnormal findings of blood chemistry | CPT/HCPCS: 99232; 99239; G0180 ==

== ENCOUNTER 2024-07-07 03:54 | Outpatient (BNV) | payer MEDICARE, SELFPAY | END 2024-07-07 07:00 | PROVIDERS: Admitting Provider Nurse Practitioner Family; Emergency Provider Emergency Medicine; PCP Internal Medicine; Visit Provider Internal Medicine | DX: I42.2 Other hypertrophic cardiomyopathy (principal); I35.8 Other nonrheumatic aortic valve disorders; I34.81 Nonrheumatic mitral (valve) annulus calcification | CPT/HCPCS: 93306 ==

== ENCOUNTER 2024-07-07 03:54 | Outpatient (BNV) | payer MEDICARE, SELFPAY | END 2024-07-07 05:00 | PROVIDERS: Admitting Provider Nurse Practitioner Family; Emergency Provider Emergency Medicine; PCP Internal Medicine; Visit Provider Radiology Diagnostic Radiology | DX: R74.01 Elevation of levels of liver transaminase levels (principal) | CPT/HCPCS: 76705 ==

== ENCOUNTER 2024-07-19 11:31 | Outpatient (AMB) | payer MEDICARE, SELFPAY ==
--- NOTE | 2024-07-19 11:34 | MHC.PC.OV ---
Vital Signs 07/19/24 11:36 Height 5 ft 1 in Weight 114 lb 6 oz BMI 21.6 BP 124/72 Blood Pressure Location Lt brachial Position Sitting Temp 97.5 F Temp Source Temporal Artery Scan Intake Visit Reasons: TCM [facility] 07/09 UTI Intake Note: Patient is here for hospital discharge and TCM follow up. Patient was discharged from [facility] on 07/12/24. 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: Present Accompanied by: Son Allergies amoxicillin [AMOXICILLIN] Allergy (Intermediate, Verified 07/19/24 12:00) STOMACH ISSUES pollen extracts [POLLEN] Allergy (Mild, Verified 07/19/24 12:00) RUNNY NOSE, SNEEZING, ITCHY EYES Sulfa (Sulfonamide Antibiotics) Allergy (Verified 07/19/24 12:00) Unknown Medication List - Last Reconciled 07/19/24 by PRIYANKA Sullivan albuterol sulfate 90 mcg/actuation 2 puffs inhalation Q6H PRN amlodipine 5 mg PO DAILY blood pressure monitor (Blood Pressure Kit) As directed cetirizine 10 mg PO BEDTIME diphenoxylate-atropine 2.5-0.025 mg 1 - 2 tabs PO BID PRN hydrochlorothiazide 25 mg See Protocol PO DAILY inhalational spacing device (POCKET CHAMBER spacer) As directed levetiracetam 500 mg PO BID levothyroxine 112 mcg PO DAILY 90 days losartan 50 mg See Protocol PO DAILY 90 days memantine 10 mg PO BID nystatin (Nyamyc) 1 appl See Protocol topical BID omeprazole 20 mg PO DAILY sertraline 50 mg PO DAILY simvastatin 20 mg PO BEDTIME 90 days Tobacco use date assessed: 07/19/24 Fall risk assessment: No Falls in past year Last assessed Fall Risk: 07/19/24 Dental Screening Dental Screen Date: 07/19/24 Did you have a dental visit in the last 12 months?: No Did you have a dental problem in the last 6 months where you did not have access to dental care?: No Was dental information given to patient?: No HPI TCM [facility] 07/09 UTI HPI Details The patient is a 79-year-old female with significant past medical history of seizure disorder on Keppra, hyperlipidemia, hypertension, allergic rhinitis, COPD on oxygen at home 2 L nasal cannula, osteoarthritis, IBS, anxiety and depression, vitamin-D deficiency, memory impairment, Ford's esophagus, GERD in hypothyroidism The patient is presenting today post [facility] admission for hypertensive urgency and UTI. The patient was given IV ceftriaxone for UTI while awaiting cultures. Oral and IV medication to control blood pressure. BP better controlled with home dose amlodipine and addition of HCT 25 mg along with Losartan 50 mg. Mildly elevated Transaminitis with US with chronic biliary dilation, outpatient MRCP and GI follow recommended. The patient to repeat BMP in one week. The patient to monitor blood pressure. The patient acompanied by Son, who said the blood pressure has not been monitored but the patient is ok because they increased her blood pressure medication. Blood pressure in office 124/72. Encouraged the patient son to monitor the patient blood pressure. The patient follow up with Yamila Espinal, GI. The patient is stable in office. Reminded the patient and son about her repeat BMP in one week. The patient denies sob, chest pain, heart palpitation or dizziness. TCM TCM Information Date of Discharge 07/09/24 Discharged From [facility] Interactive Contact Date (Reference documentation from this date) 07/13/24 [facility] Medical History Generalized anxiety disorder Nocturnal hypoxemia Acute rhinosinusitis Microscopic hematuria Renal cyst Osteoarthritis, knee COPD (chronic obstructive pulmonary disease) Acute and chronic respiratory failure with hypoxia COPD exacerbation LFT elevation Shortness of breath Rash Bilateral knee pain Hematuria Frequent falls Left-sided back pain Seizure disorder Allergic rhinitis Generalized abdominal pain Anemia Initial Medicare annual wellness visit Screening for osteoporosis Hypoxemia Anemia Syncope Nausea Chronic diarrhea Diarrhea Bile salt-induced diarrhea Cutaneous lupus erythematosus Osteoarthritis Hypertension Vitamin D deficiency COPD (chronic obstructive pulmonary disease) Ford's esophagus GERD (gastroesophageal reflux disease) Hypothyroid Surgical History History of cataract surgery History of rectal surgery History of ear surgery History of cholecystectomy History of eye surgery Family History Father Lymphoma Lung cancer Mother Hypertension Diabetes Sister Brain cancer Social History Household Members: Family Household Members Other:: son, his and their 2 kids Housing: House Do you presently have visiting nurse or other home services: No Alcohol intake: former Patient Tobacco Use Status: Former Tobacco user Tobacco use type: Cigarette e-Cigarette/Vaping Use: Never Used Second Hand Smoke Exposure: Yes Advance Directives Date on File: 08/04/23 service: No Current occupational status: retired Cognitive needs: Yes (Walker, Cane) Hearing needs: Yes (hearing aide) Vision needs: Yes (Glasses) Questionnaire Thrive Questionnaire Date Thrive assessed: 07/07/24 AUDIT C Alcohol Use Questionnaire (AUDIT-C) 2. How many drinks containing alcohol do you have on a typical day when you are drinking?: 1 or 2 3. How often do you have six or more drinks on one occasion?: Never Total Score: 0 ANGELES-7 AMB Questionnaire ANGELES-7 Date ANGELES - 7 assessed: 04/12/24 Source: Developed by Drs. Juan R Pierre, Mary Kraft, Matti Flores and colleagues, with an educational benton from [employer]. Review of Systems Const Denies headache(s) Eyes Denies loss of vision ENT Denies vertigo, Denies dizziness, Denies headache(s) and Denies sore throat Card Denies chest pain, Denies leg edema and Denies lightheadedness Resp Denies cough, Denies hemoptysis and Denies wheezing GI Denies abdominal pain, Denies melena, Denies constipation, Denies diarrhea and Denies vomiting Denies urinary frequency, Denies dysuria and Denies urinary urgency Musc Denies arthralgias, Denies joint swelling, Denies numbness and Denies tingling Neuro Denies Abnormal speech present, Denies behavioral changes, Denies vertigo, Denies dizziness, Denies headache(s), Denies loss of vision, Denies memory loss, Denies numbness and Denies tingling Psych Denies anxiety, Denies behavioral changes, Denies depression, Denies memory loss and Denies panic attacks Nithin/Lymph Denies easy bleeding and Denies easy bruising Aller/Immun Denies wheezing Physical exam (Primary Care) Vital Signs: Last Vital Signs Temp 97.5 F 07/19/24 11:36 BP 124/72 07/19/24 11:36 BMI result Body Mass Index 21.6 Tobacco/Smoking Status: Tobacco use Status Tobacco use date assessed 07/19/24 07/19/24 11:39 Patient Tobacco Use Status Former Tobacco user 07/19/24 11:39 Tobacco use type Cigarette 07/19/24 11:39 e-Cigarette/Vaping Use Never Used 07/19/24 11:39 Thrive Assessment: Date of Thrive Assessment Date Thrive assessed 07/07/24 07/19/24 11:39 Const General: healthy appearing, no acute distress, alert and awake Nutritional Appearance: well nourished Orientation/consciousness: oriented to person, oriented to place and oriented to time HENMT Ears: external ears normal General nose exam: Normal external nose present Eyes Conjunctivae: conjunctivae normal Sclerae: sclerae normal Pupils: Equal, round and reactive pupils present Neck Neck: Yes no lymphadenopathy and Yes no JVD Thyroid: Thyroid normal Carotids: no bruits Resp Effort & Inspection: normal respiratory effort and not tachypneic Auscultation: no crackles, no rales, no rhonchi and no wheezes Cardio Rate: regular rate Rhythm: regular rhythm Heart sounds: no murmurs and normal S1 and S2 GI Palpation (GI): Soft to palpation, nontender, no hepatomegaly and no splenomegaly Auscultation: normal bowel sounds Skin General skin exam: no rashes or lesions noted and dry skin Neuro General: oriented to person, oriented to place and oriented to time Cranial nerves: Yes Equal, round and reactive pupils present Speech: No Abnormal speech present Gait exam (Neuro): Normal gait present Motor exam (neuro): no tremor noted Extrem Right upper extremity: full ROM Left upper extremity: full ROM Right lower extremity: full ROM; no edema Left lower extremity: full ROM; no edema Psych Mental Status: mental status grossly normal Speech and movement: Normal speech and movement present Affect: normal affect Attitude: cooperative Thought process: Normal thought process present Coding Level of Care Code TCM Mod MDM <= 14 Days Diagnoses Urinary tract infection without hematuria, site unspecified N39.0 Urinary tract infection type: site unspecified Hematuria presence: without hematuria Hypertensive urgency I16.0 Dilated cbd, acquired K83.8 Acquired hypothyroidism E03.9 Hypothyroidism type: acquired Time Spent (min) 39 Assessment & Plan Assessment & Plan (1) UTI (urinary tract infection): Code(s): N39.0 - Urinary tract infection, site not specified Category: Medical Qualifiers: Urinary tract infection type: site unspecified Hematuria presence: without hematuria Qualified Code(s): N39.0 - Urinary tract infection, site not specified Plan: The patient completed blood pressure for UTI with good effect. She was altered mentally, resolved after UTI treatment. maintain adequate hydration. Contact office for any urinary symptoms. (2) Hypertensive urgency: Code(s): I16.0 - Hypertensive urgency Category: Medical Plan: Initially, she was treated with IV and PO blood pressure medication and then transitioned to her home amlodipine 5 mg with the addition of of HCT 25 mg daily along with Losartan 50 mg. Blood pressure within goal in office, encouraged the patient and son to monitor blood pressure at home. Reinforced low sodium diet. (3) Dilated cbd, acquired: Code(s): K83.8 - Other specified diseases of biliary tract Category: Medical Plan: BMP and MRCP orders in place and the patient to follow up with [facility] (Yamila Cruz) to work of CBD dilatation and transaminitis. (4) Hypothyroid: Code(s): E03.9 - Hypothyroidism, unspecified Category: Medical Qualifiers: Hypothyroidism type: acquired Qualified Code(s): E03.9 - Hypothyroidism, unspecified Plan: TSH 6.44 on 07/07/24, repeat TSH and T4 ordered to evaluated. Continue levothyroxine 112 mcg daily. The patient son reports that he thinks that the patient might have missed some doses. He is going to give her medication before going to work for a week straight before getting these labs done. Take synthroid around the same time day by its self. Orders: Orders Free T4 (Free Thyroxine) 07/19/24 E03.9 - Hypothyroidism, unspecified TSH reflex Free T4 07/19/24 E03.9 - Hypothyroidism, unspecified
[2024-07-19 11:36] VITALS: BP 124/72; TEMP 36.4; BMI 21.6
== END 2024-07-19 12:15 | disposition home or self-care (01) ==
LOC: HO.HMCH 11:31
PROVIDERS: PCP Internal Medicine
DX: N39.0 Urinary tract infection, site not specified (principal); I16.0 Hypertensive urgency; K83.8 Other specified diseases of biliary tract; E03.9 Hypothyroidism, unspecified

== ENCOUNTER → 2024-07-19 11:31 | Outpatient (BNVA) | payer MEDICARE, SELFPAY | PROVIDERS: PCP Internal Medicine | DX: J30.9 Allergic rhinitis, unspecified (principal); J44.9 Chronic obstructive pulmonary disease, unspecified; R56.9 Unspecified convulsions; E78.5 Hyperlipidemia, unspecified; K52.9 Noninfective gastroenteritis and colitis, unspecified; F41.9 Anxiety disorder, unspecified; F32.A Depression, unspecified; E55.9 Vitamin D deficiency, unspecified; K22.70 Barrett's esophagus without dysplasia; K21.9 Gastro-esophageal reflux disease without esophagitis; E03.9 Hypothyroidism, unspecified; N39.0 Urinary tract infection, site not specified; I16.0 Hypertensive urgency; K83.8 Other specified diseases of biliary tract; Z99.81 Dependence on supplemental oxygen; Z79.899 Other long term (current) drug therapy | CPT/HCPCS: 99495 ==

== ENCOUNTER 2024-08-02 19:15 | Observation (INO) | payer MEDICARE, SELFPAY ==
--- NOTE | 2024-08-02 | ECG_ITS ---
Test Reason : WEAKNESS Blood Pressure : */* mmHG Vent. Rate : 56 BPM Atrial Rate : 56 BPM P-R Int : 170 ms QRS Dur : 70 ms QT Int : 434 ms P-R-T Axes : 93 71 77 degrees QTcB Int : 418 ms Sinus bradycardia Otherwise normal ECG When compared with ECG of 06-Jul-2024 16:46, No significant change was found Referred By: Generic ED Physician Electronically Signed By: Bang Kitchen
--- NOTE | ~2024-08-02 | CT_ITS ---
CLINICAL HISTORY: pain CT abdomen and pelvis with contrast Comparison: US - US ABDOMEN LIMITED - 07/07/24 04:[address] - CT ABDOMEN PELVIS W IV CON - 11/08/23 11:24 EDT Findings: Emphysema. Intra and extrahepatic biliary duct dilatation with CBD measuring up to 2.0 cm, similar to prior. Cholecystectomy. Dilated proximal pancreatic duct measuring up to 6 mm, previously 4 mm. Liver, spleen, and adrenal glands are within normal limits. No hydronephrosis. Symmetric contrast enhancement of the kidneys. Bilateral cysts. Wall thickening, submucosal edema and surrounding fat stranding and fluid in the rectum. No bowel obstruction, pneumatosis or pneumoperitoneum. Normal appendix. Submucosal edema in the antrum, similar to prior. Aortic atherosclerosis. No aneurysm. Portal venous system is patent. Large bilateral urinary bladder diverticula. No acute fracture. IMPRESSION: 1. Wall thickening, submucosal edema and surrounding fat stranding and fluid in the rectum, concerning for proctitis 2. Dilated proximal pancreatic duct measuring up to 6 mm, increased from 4 mm. 3. Similar intra and extrahepatic biliary duct dilatation. This document has been electronically signed by: Pauline Felix MD on 08/02/2024 22:08:16
[2024-08-02 19:25] VITALS: BP 128/74; BP 170/47; PULSE 56; PULSE 60; RESP 14; BMI 21.5
[2024-08-02 19:45] LABS: MANUAL DIFF FLAG NO
[2024-08-02 19:47] LABS: Basophils Absolute Auto 0.1 X10*3/uL (0.0-0.2); Basophils Percent Auto 0.8 % (0-2); Eosinophils Absolute Auto 0.1 X10*3/uL (0.0-0.4); Eosinophils Percent Auto 0.7 % (0-4); Hematocrit 43.4 % (37.0-47.0); Hemoglobin 13.8 g/dl (12.0-16.0); Imm Gran Abs Auto 0.06 X10*3/uL (0.00-0.03); Imm Gran Pct Auto 0.8 % (0.0-0.4); Lymphocytes Absolute Auto 1.2 X10*3/uL (1.2-4.9); Lymphocytes Percent Auto 16.4 % (20-40); Mean Corpuscular HGB Conc 31.8 g/dl (31.0-35.0); Mean Corpuscular Hemoglobin 27.9 pg (27.0-33.0); Mean Corpuscular Volume 87.7 fL (80.0-98.0); Mean Platelet Volume 11.7 fL (9.4-12.3); Monocytes Absolute Auto 0.5 X10*3/uL (0.1-1.2); Monocytes Percent Auto 7.3 % (2-11); Neutrophils Absolute Auto 5.5 x10*3/uL (2.0-8.3); Platelet Count 194 X10*3/uL (160-400); Red Blood Count 4.95 X10*6/uL (4.20-5.50); Red Cell Distribution Width 14.1 % (11.0-16.0); White Blood Count 7.4 X10*3/uL (4.8-10.8)
[2024-08-02 19:51] VITALS: PULSE 58; RESP 17; TEMP 36.8; O2SAT 97
--- NOTE | 2024-08-02 20:03 | MHC.EDTECH ---
Patient was biba from home ,vitals taken ,Patient was hooked up to cardiac cath lab technologist and change into hospital gown ,all extra linen removed from underneath Patient ,Patient was slightly soil with smear amount of dark stool ,Dennise care given ,yellow sock given and all other safety measure in Place ,ekg taken and was read by Provider ,blood drawn ,rsv/covid swab collected all sent to lab .Patient daughter in law at bedside .
[2024-08-02 20:07] LABS: Troponin-I High Sensitivity < 2.7 ng/L (<3.5-17.0)
[2024-08-02 20:09] LABS: Alanine Aminotransferase 7 U/L (0-31); Albumin Level 3.6 g/dL (3.5-5.0); Alkaline Phosphatase 77 U/L (39-117); Anion Gap 19 (12-20); Aspartate Amino Transferase 20 U/L (5-31); Bilirubin Total 0.3 mg/dL (0.0-1.0); Blood Urea Nitrogen 16 mg/dL (9-16); Calcium 9.2 mg/dL (8.4-10.2); Carbon Dioxide 19 mmol/L (22-29); Chloride 108 mmol/L (96-108); Creatinine Clr Calc Pharmacy 41.7; Estimated Glomerular Filt Rate > 60; Glucose Random 92 mg/dL (60-115); Magnesium 1.8 mg/dL (1.6-2.6); Sodium 142 mmol/L (135-145); Total Protein 7.2 g/dL (6.5-8.0)
--- NOTE | 2024-08-02 20:36 | ED.GENADULT ---
HPI - General Adult General Chief complaint: Weakness Stated complaint: N/V SOILED SELF , ALMOST PASSED OUT IN SHOWER Time Seen by Provider: 08/02/24 20:09 Source: patient Limitations: no limitations History of Present Illness ED Provider: Andree Mills PA-C HPI narrative: 79-year-old female with a history of hypertension, hyperlipidemia, COPD, hypothyroidism, GERD, IBS, cognitive impairment, osteoarthritis, gait instability who presents after near syncopal episode at home. The patient developed nausea vomiting diarrhea earlier today. She has been having copious loose stool that she can not control. The patient's daughter had her in the shower to clean her, she felt weak and almost passed out. There was no head strike no loss of consciousness. The patient denies abdominal pain or fever. The patient does have risk factors for C diff, she was admitted to the hospital at the beginning of the month for urinary tract infection. Related Data Home Medications ?Medication ?Instructions ?Recorded ?Confirmed levetiracetam 500 mg tablet 500 mg PO BID 07/31/23 07/19/24 albuterol sulfate 90 mcg/actuation 2 puff inhalation Q6H PRN wheezing 11/08/23 07/19/24 aerosol inhaler diphenoxylate-atropine 2.5 1 - 2 tab PO BID PRN Diarrhea 07/07/24 07/19/24 mg-0.025 mg tablet Previous Rx's ?Medication ?Instructions ?Recorded blood pressure monitor (Blood #1 ea 05/06/22 Pressure Kit) levothyroxine 112 mcg tablet 112 mcg PO DAILY 90 days #90 tabs 07/28/23 inhalational spacing device #1 ea 08/18/23 (POCKET CHAMBER spacer) sertraline 50 mg tablet 50 mg PO DAILY #90 tabs 02/15/24 simvastatin 20 mg tablet 20 mg PO BEDTIME 90 days #90 tabs 03/19/24 amlodipine 5 mg tablet 5 mg PO DAILY #90 tabs 04/12/24 memantine 10 mg tablet 10 mg PO BID #180 tabs 04/12/24 omeprazole 20 mg capsule,delayed 20 mg PO DAILY #90 caps 06/09/24 release hydrochlorothiazide 25 mg tablet 25 mg PO DAILY #90 tabs 07/09/24 losartan 50 mg tablet 50 mg PO DAILY 90 days #90 tabs 07/09/24 nystatin 100,000 unit/gram topical 1 appl topical BID #30 grams 07/09/24 powder ([facility]) cetirizine 10 mg capsule 10 mg PO BEDTIME Allergy Symptoms 07/26/24 #90 caps Allergies Allergy/AdvReac Type Severity Reaction Status Date / Time amoxicillin [AMOXICILLIN] Allergy Intermediate STOMACH Verified 08/02/24 19:29 ISSUES pollen extracts [POLLEN] Allergy Mild RUNNY Verified 08/02/24 19:29 NOSE, SNEEZING, ITCHY EYES Sulfa (Sulfonamide Allergy Unknown Verified 08/02/24 19:29 Antibiotics) Review of Systems Review of Systems: Yes all other systems are reviewed and are negative Constitutional: Constitutional: Denies fatigue and Denies fever(s) Cardiovascular: Cardiovascular: Denies chest pain and Denies dyspnea Respiratory: Respiratory: Denies cough and Denies dyspnea Gastrointestinal: Gastrointestinal: Denies abdominal pain, Reports diarrhea, Reports nausea and Reports vomiting Genitourinary: Genitourinary: Denies dysuria Endocrine: Endocrine: Denies fatigue PMF Past Medical History Attestation statement: The following information was validated with the patient. Medical History Generalized anxiety disorder Nocturnal hypoxemia Acute rhinosinusitis Microscopic hematuria Renal cyst Osteoarthritis, knee COPD (chronic obstructive pulmonary disease) Acute and chronic respiratory failure with hypoxia COPD exacerbation LFT elevation Shortness of breath Rash Bilateral knee pain Hematuria Frequent falls Left-sided back pain Seizure disorder Allergic rhinitis Generalized abdominal pain Anemia Initial Medicare annual wellness visit Screening for osteoporosis Hypoxemia Anemia Syncope Nausea Chronic diarrhea Diarrhea Bile salt-induced diarrhea Cutaneous lupus erythematosus Osteoarthritis Hypertension Vitamin D deficiency COPD (chronic obstructive pulmonary disease) Ford's esophagus GERD (gastroesophageal reflux disease) Hypothyroid Surgical History History of cataract surgery History of rectal surgery History of ear surgery History of cholecystectomy History of eye surgery Family History Family History Father Lymphoma Lung cancer Mother Hypertension Diabetes Sister Brain cancer Social History Social History Household Members: Family Household Members Other:: son, his and their 2 kids Housing: House Do you presently have visiting nurse or other home services: No Alcohol intake: former Patient Tobacco Use Status: Former Tobacco user Tobacco use type: Cigarette Smoked in Last 30 Days: No e-Cigarette/Vaping Use: Never Used Second Hand Smoke Exposure: Yes Use of substances other than those prescribed or required for medical reasons: No Advance Directives: Yes Advance Directives on File: Yes Advance Directives Date on File: 08/04/23 service: No Current occupational status: retired Cognitive needs: Yes (Walker, Cane) Hearing needs: Yes (hearing aide) Vision needs: Yes (Glasses) Physical Exam ED Vital Signs: Vital Signs - 24 hr 08/02/24 19:25 08/02/24 19:51 08/02/24 20:44 Temperature 98.2 F Pulse Rate 56 58 63 Respiratory Rate 14 17 16 Blood Pressure 170/47 H 159/76 H Pulse Oximetry 97 97 Oxygen Delivery Method Nasal Cannula Nasal Cannula Oxygen Flow Rate 2 2 08/02/24 21:24 08/02/24 23:26 08/03/24 00:20 Temperature 97.6 F Pulse Rate 81 66 64 Respiratory Rate 20 12 12 Blood Pressure 167/66 H 172/62 H 154/114 H Pulse Oximetry 99 98 97 Oxygen Delivery Method Nasal Cannula Nasal Cannula Nasal Cannula Oxygen Flow Rate 2 2 2 BMI result Body Mass Index 21.5 Const Other: Alert, cachectic Orientation/consciousness: patient oriented x3 HENMT Other: Dry oral mucosa Resp Effort & Inspection: normal respiratory effort Cardio Other: Normal peripheral perfusion GI Other: Abdomen is soft, nondistended, nontender no guarding Skin Other: Warm dry no rash Neuro General: patient oriented x3, no focal motor deficits and CN's II-XI intact bilaterally Psych Other: Cooperative Medications Administered Generic Name Dose Route Start Last Admin Trade Name Freq PRN Reason Stop Dose Admin Metronidazole 500 mg in 100 mls @ 100 mls/hr 08/02/24 23:45 08/03/24 00:20 Flagyl IV 08/03/24 00:44 100 mls/hr ONCE ONE Administration Discontinued Medications Generic Name Dose Route Start Last Admin Trade Name Freq PRN Reason Stop Dose Admin Sodium Chloride 500 mls @ 500 mls/hr 08/02/24 20:49 08/02/24 22:10 Ns IV 08/02/24 21:48 Infused .Q1H ONE Infusion Iohexol 85 ml 08/02/24 21:16 08/02/24 21:17 Iohexol 350 Mg/Ml 100 Ml Infus..Btl IV 08/02/24 21:17 85 ml ONCE ONE Administration Medical Decision Making Medical Decision Making MDM Narrative: 79-year-old female with a history of hypertension, hyperlipidemia, COPD, hypothyroidism, GERD, IBS, cognitive impairment, osteoarthritis, gait instability who presents after near syncopal episode at home. The patient developed nausea vomiting diarrhea earlier today. She has been having copious loose stool that she can not control. The patient's daughter had her in the shower to clean her, she felt weak and almost passed out. There was no head strike no loss of consciousness. The patient denies abdominal pain or fever. The patient does have risk factors for C diff, she was admitted to the hospital at the beginning of the month for urinary tract infection. Problem recent admission, age History: Per patient and her [id number] I have considered the following differential diagnoses: Colitis, C diff, other infectious diarrhea, viral gastroenteritis Plan: Patient has risk factors for C diff, we will be obtaining a C diff culture and a GI panel. I am also scanning her abdomen given her age, she will be masking her pain. She is not currently nauseous. We will give IV fluid hydration. Screening labs were already ordered and in process, we need a urine sample. I have independently reviewed the following tests: Labs: No overall leukocytosis, left shift noted, not anemic, no electrolyte abnormality, troponin negative, lactic 1.3, viral panel pending, , UA pending , C diff pending GI panel pending CT abdomen and pelvis:IMPRESSION: 1. Wall thickening, submucosal edema and surrounding fat stranding and fluid in the rectum, concerning for proctitis 2. Dilated proximal pancreatic duct measuring up to 6 mm, increased from 4 mm. 3. Similar intra and extrahepatic biliary duct dilatation. We will obtain blood cultures, a lactic, starting Cipro and Flagyl. Lab Data 08/02/24 19:42 08/02/24 19:42 Labs: Lab Results 08/02/24 08/02/24 08/03/24 Range/Units 19:42 19:59 00:17 WBC 7.4 (4.8-10.8) X10*3/uL RBC 4.95 (4.20-5.50) X10*6/uL Hgb 13.8 (12.0-16.0) g/dl Hct 43.4 (37.0-47.0) % MCV 87.7 (80.0-98.0) fL MCH 27.9 (27.0-33.0) pg MCHC 31.8 (31.0-35.0) g/dl RDW 14.1 (11.0-16.0) % Plt Count 194 (160-400) X10*3/uL MPV 11.7 (9.4-12.3) fL Immature Gran % (Auto) 0.8 H (0.0-0.4) % Neut % (Auto) 74.0 H (45-73) % Lymph % (Auto) 16.4 L (20-40) % [place] % (Auto) 7.3 (2-11) % Eos % (Auto) 0.7 (0-4) % Baso % (Auto) 0.8 (0-2) % Lymph # (Auto) 1.2 (1.2-4.9) X10*3/uL [place] # (Auto) 0.5 (0.1-1.2) X10*3/uL Eos # (Auto) 0.1 (0.0-0.4) X10*3/uL Baso # (Auto) 0.1 (0.0-0.2) X10*3/uL Abs Immat Gran (auto) 0.06 H (0.00-0.03) X10*3/uL Absolute Neuts (auto) 5.5 (2.0-8.3) x10*3/uL Absolute Nucleated RBC 0.000 (0.0-0.012) X10*3/uL Nucleated RBC % (auto) 0.0 (0.0-0.2) /100WBC Sodium 142 (135-145) mmol/L Potassium 4.0 (3.3-5.1) mmol/L Chloride 108 (96-108) mmol/L Carbon Dioxide 19 L (22-29) mmol/L Anion Gap 19 (12-20) BUN 16 (9-16) mg/dL Creatinine 0.81 (0.5-1.4) mg/dL Estim Creat Clear Calc 41.7 Estimated GFR > 60 Random Glucose 92 (60-115) mg/dL Lactic Acid 1.3 (0.5-2.0) mmol/L Calcium 9.2 (8.4-10.2) mg/dL Magnesium 1.8 (1.6-2.6) mg/dL Total Bilirubin 0.3 (0.0-1.0) mg/dL AST 20 (5-31) U/L ALT 7 (0-31) U/L Alkaline Phosphatase 77 (39-117) U/L Troponin I High Sens < 2.7 (<3.5-17.0) ng/L Total Protein 7.2 (6.5-8.0) g/dL Albumin 3.6 (3.5-5.0) g/dL Influenza Type A (PCR) NEGATIVE (Negative) Influenza Type B (PCR) NEGATIVE (Negative) RSV RNA Qual (PCR) NEGATIVE (Negative) SARS-CoV-2 RNA (RT-PCR) NEGATIVE (Negative) Discharge Plan Discharge Patient Disposition: Admitted As Inpatient Prescriptions: No Action levothyroxine 112 mcg tablet 112 mcg PO DAILY 90 Days Qty: 90 3RF sertraline 50 mg tablet 50 mg PO DAILY Qty: 90 1RF simvastatin 20 mg tablet 20 mg PO BEDTIME 90 Days Qty: 90 2RF omeprazole 20 mg capsule,delayed release(DR/EC) 20 mg PO DAILY Qty: 90 1RF cetirizine 10 mg capsule 10 mg PO BEDTIME Qty: 90 3RF levetiracetam 500 mg tablet 500 mg PO BID diphenoxylate-atropine 2.5-0.025 mg tablet 1 - 2 tab PO BID PRN (Reason: Diarrhea) losartan 50 mg Tablet 50 mg PO DAILY 90 Days Qty: 90 0RF Protocol: Hold for SBP< HOLD for SBP < : 90 hydrochlorothiazide 25 mg Tablet 25 mg PO DAILY Qty: 90 0RF Protocol: Hold for SBP< HOLD for SBP < : 90 nystatin [Nyamyc] 100,000 unit/gram Powder 1 appl topical BID Qty: 30 1RF Protocol: Apply to: Apply to: affected areas albuterol sulfate 90 mcg/actuation HFA aerosol inhaler 2 puff INHALATION Q6H PRN (Reason: wheezing) (DME) blood pressure monitor [Blood Pressure Kit] Kit See Rx Instructions .ROUTE .MEDSUPPLY Qty: 1 0RF Rx Instructions: As directed memantine 10 mg tablet 10 mg PO BID Qty: 180 2RF amlodipine 5 mg tablet 5 mg PO DAILY Qty: 90 3RF (DME) POCKET CHAMBER Spacer See Rx Instructions .Route Qty: 1 0RF Rx Instructions: As directed Print Language: Vincentian
[2024-08-02 20:42] LABS: Influenza A PCR NEGATIVE (Negative); Influenza B PCR NEGATIVE (Negative); Resp Syncy Virus RNA Qual PCR NEGATIVE (Negative); SARS COV2 PCR INHOUSE NEGATIVE (Negative)
[2024-08-02 20:44] VITALS: BP 159/76; PULSE 63; RESP 16; O2SAT 97
[2024-08-02] MEDS: iohexoL 350 MG/ML 100 ML INFUS..BTL 85 ML IV (21:17)
[2024-08-02] MEDS: 0.9 % Sodium Chloride 500 ML IV (21:23)
[2024-08-02 21:24] VITALS: BP 167/66; PULSE 81; RESP 20; O2SAT 99
--- NOTE | 2024-08-02 22:11 | PC.NURSE ---
patient incont of urine at this time, linens changed and renaldo care provided. no loose stools at this time
[2024-08-02 23:26] VITALS: BP 172/62; PULSE 66; RESP 12; TEMP 36.4; O2SAT 98
[2024-08-03] VITALS (12 sets, daily range): BP systolic 138–204; BP diastolic 50–114; PULSE 55–81; RESP 12–26; TEMP 36.6–36.8; O2SAT 97–100
[2024-08-03] MEDS: metroNIDAZOLE/NS 500 MG/100 ML PIGGYBACK 100 MG IV (00:20)
[2024-08-03 00:39] LABS: Lactic Acid 1.3 mmol/L (0.5-2.0)
[2024-08-03 01:06] LABS: Appearance Urine Cloudy; Color Urine Yellow; Glucose Urine UA Negative (Negative); Leukocyte Esterase Urine Small (1+) (Negative); Nitrite Urine Negative (Negative); PH 5.5 (5.0-9.0); Specific Gravity - Urine >= 1.030 (1.005-1.025); UMIC TRIGGER UACC YES; Urine Blood Moderate (2+) (Negative); Urine Ketones Negative (Negative); Urine Protein Negative (Neg-Trace)
[2024-08-03 01:19] LABS: Bacteria Urine None Seen (None Seen); Hyaline Casts Urine 0-2 /LPF (0-2); UACC Culture Trigger YES
[2024-08-03] MEDS: Ciprofloxacin Lactate/D5W 400 MG/200 ML PIGGYBACK 200 MG IV (01:20)
--- NOTE | 2024-08-03 01:33 | PM.IMHP ---
History of Present Illness Date of Service: 08/03/24 Chief Complaint: Diarrhea This is a 79-year-old female with pertinent history of epilepsy, mixed hyperlipidemia, hypertension, allergic rhinitis, chronic hypoxemic respiratory failure due to COPD on 2 L supplemental oxygen, IBS, mood disorder, osteoporosis, cognitive impairment, GERD with Ford's esophagus, hypothyroidism who presents to the emergency department evaluation after near-syncope. Patient states she had multiple episodes of nonbloody liquid stool on the day of presentation. This was associated with nausea and multiple episodes of nonbloody emesis. No abdominal pain, fever or chills. Patient states she felt weak and when she got up to go into the shower, she almost passed out. Patient was recently admitted with hypertensive urgency and acute metabolic encephalopathy due to UTI and discharged on 07/09/2024. No chest pain, palpitations, shortness of breath, changes in urinary habits. In the emergency department, imaging with proctitis. Review of Systems Constitutional: Constitutional: Reports fatigue, Reports lethargy, Reports malaise, Reports poor appetite and Reports weakness Cardiovascular: Cardiovascular: Reports no additional cardiovascular complaints Respiratory: Respiratory: Reports no additional respiratory complaints Gastrointestinal: Gastrointestinal: Reports diarrhea, Reports loose stools, Reports nausea and Reports vomiting Genitourinary: Genitourinary: Reports no additional female genitourinary complaints Neurologic: Reports weakness Endocrine: Endocrine: Reports fatigue [facility] Medical History Generalized anxiety disorder Nocturnal hypoxemia Acute rhinosinusitis Microscopic hematuria Renal cyst Osteoarthritis, knee COPD (chronic obstructive pulmonary disease) Acute and chronic respiratory failure with hypoxia COPD exacerbation LFT elevation Shortness of breath Rash Bilateral knee pain Hematuria Frequent falls Left-sided back pain Seizure disorder Allergic rhinitis Generalized abdominal pain Anemia Initial Medicare annual wellness visit Screening for osteoporosis Hypoxemia Anemia Syncope Nausea Chronic diarrhea Diarrhea Bile salt-induced diarrhea Cutaneous lupus erythematosus Osteoarthritis Hypertension Vitamin D deficiency COPD (chronic obstructive pulmonary disease) Ford's esophagus GERD (gastroesophageal reflux disease) Hypothyroid Family History Father Lymphoma Lung cancer Mother Hypertension Diabetes Sister Brain cancer Surgical History History of cataract surgery History of rectal surgery History of ear surgery History of cholecystectomy History of eye surgery Social History Household Members: Family Household Members Other:: son, his and their 2 kids Housing: House Do you presently have visiting nurse or other home services: No Alcohol intake: former Patient Tobacco Use Status: Former Tobacco user Tobacco use type: Cigarette Smoked in Last 30 Days: No e-Cigarette/Vaping Use: Never Used Second Hand Smoke Exposure: Yes Use of substances other than those prescribed or required for medical reasons: No Advance Directives: Yes Advance Directives on File: Yes Advance Directives Date on File: 08/04/23 service: No Current occupational status: retired Cognitive needs: Yes (Walker, Cane) Hearing needs: Yes (hearing aide) Vision needs: Yes (Glasses) Meds Allergies Allergy/AdvReac Type Severity Reaction Status Date / Time amoxicillin [AMOXICILLIN] Allergy Intermediate STOMACH Verified 08/02/24 19:29 ISSUES pollen extracts [POLLEN] Allergy Mild RUNNY Verified 08/02/24 19:29 NOSE, SNEEZING, ITCHY EYES Sulfa (Sulfonamide Allergy Unknown Verified 08/02/24 19:29 Antibiotics) Home Medications ?Medication ?Instructions ?Recorded ?Confirmed ?Last Taken ?Type levetiracetam 500 mg tablet 500 mg PO BID 07/31/23 07/19/24 07/06/24 History albuterol sulfate 90 mcg/actuation 2 puff inhalation Q6H PRN wheezing 11/08/23 07/19/24 Unknown History aerosol inhaler diphenoxylate-atropine 2.5 1 - 2 tab PO BID PRN Diarrhea 07/07/24 07/19/24 Unknown History mg-0.025 mg tablet Physical Exam Vital Signs and Narrative: Vital Signs: Last Vital Signs Temp 97.6 F 08/02/24 23:26 Pulse 62 08/03/24 01:16 Resp 18 08/03/24 01:16 BP 204/81 H 08/03/24 01:16 Pulse Ox 99 08/03/24 01:16 O2 Del Method Nasal Cannula 08/03/24 01:16 O2 Flow Rate 2 08/03/24 01:16 BMI result Body Mass Index 21.5 Elderly female lying in bed in no distress Neck supple, no JVD, dry oral mucosa Regular rate and rhythm, S1-S2 heard Regular breath sounds bilaterally, no wheezing or crackles appreciated Abdomen soft nontender, no guarding, no rigidity Patient is awake, alert and oriented x3 ; no focal motor deficit Psych: Normal mood No pedal edema Results Labs 08/02/24 19:42 08/02/24 19:42 Labs: Laboratory Results - last 24 hr 08/02/24 08/02/24 08/03/24 19:42 19:59 00:17 MCV 87.7 MCH 27.9 MCHC 31.8 RDW 14.1 Plt Count 194 MPV 11.7 Immature Gran % (Auto) 0.8 H Neut % (Auto) 74.0 H Lymph % (Auto) 16.4 L Mckinley % (Auto) 7.3 Eos % (Auto) 0.7 Baso % (Auto) 0.8 Lymph # (Auto) 1.2 Mckinley # (Auto) 0.5 Eos # (Auto) 0.1 Baso # (Auto) 0.1 Abs Immat Gran (auto) 0.06 H Absolute Neuts (auto) 5.5 Absolute Nucleated RBC 0.000 Nucleated RBC % (auto) 0.0 Anion Gap 19 Estim Creat Clear Calc 41.7 Estimated GFR > 60 Random Glucose 92 Lactic Acid 1.3 Calcium 9.2 Magnesium 1.8 Total Bilirubin 0.3 AST 20 ALT 7 Alkaline Phosphatase 77 Total Protein 7.2 Albumin 3.6 Urine Color Urine Appearance Urine pH Ur Specific [place] Urine Protein Urine Glucose (UA) Urine Ketones Urine Blood Urine Nitrite Ur Leukocyte Esterase Urine RBC Urine WBC Ur Squamous Epith Cells Urine Bacteria Hyaline Casts Influenza Type A (PCR) NEGATIVE Influenza Type B (PCR) NEGATIVE RSV RNA Qual (PCR) NEGATIVE SARS-CoV-2 RNA (RT-PCR) NEGATIVE 08/03/24 00:58 MCV MCH MCHC RDW Plt Count MPV Immature Gran % (Auto) Neut % (Auto) Lymph % (Auto) Mck[place]ley % (Auto) Eos % (Auto) Baso % (Auto) Lymph # (Auto) Mckinley # (Auto) Eos # (Auto) Baso # (Auto) Abs Immat Gran (auto) Absolute Neuts (auto) Absolute Nucleated RBC Nucleated RBC % (auto) Anion Gap Estim Creat Clear Calc Estimated GFR Random Glucose Lactic Acid Calcium Magnesium Total Bilirubin AST ALT Alkaline Phosphatase Total Protein Albumin Urine Color Yellow Urine Appearance Cloudy Urine pH 5.5 Ur Specific [place] >= 1.030 H Urine Protein Negative Urine Glucose (UA) Negative Urine Ketones Negative Urine Blood Moderate (2+) H Urine Nitrite Negative Ur Leukocyte Esterase Small (1+) H Urine RBC 3-5 H Urine WBC 6-10 Ur Squamous Epith Cells 11-20 Urine Bacteria None Seen Hyaline Casts 0-2 Influenza Type A (PCR) Influenza Type B (PCR) RSV RNA Qual (PCR) SARS-CoV-2 RNA (RT-PCR) Assessment and Plan (1) Pre-syncope: Status: Acute (2) Intractable diarrhea: Status: Acute (3) Intractable vomiting: Status: Acute Plan This is a 79-year-old female with pertinent history of epilepsy, mixed hyperlipidemia, hypertension, allergic rhinitis, chronic hypoxemic respiratory failure due to COPD on 2 L supplemental oxygen, IBS, mood disorder, osteoporosis, cognitive impairment, GERD with Ford's esophagus, hypothyroidism who presents to the emergency department evaluation after near-syncope. #. Presyncope, likely orthostatic in the setting of intractable vomiting and diarrhea: Will admit patient with cardiac monitoring. Resuscitating with IV crystalloids. Obtain orthostatics in a.m.. C diff and GI panel pending. Clear liquid idet and advance as tolerated. Patient received ciprofloxacin and metronidazole in the ER, hold off on further antibiotics for now. #. Hypertension: Continue home antihypertensives #. Epilepsy: On Keppra #. Hypothyroidism: On Synthroid #. Cognitive impairment: On memantine. Maintain sleep-wake cycle #. Gastroesophageal reflux disease: On PPI #. Mood disorder: Continue home mood stabilizers #. Mixed hyperlipidemia: On statin #. Chronic hypoxemic respiratory failure due to COPD: No exacerbation during admission. Continue home baseline supplemental oxygen. Med rec pending DVT prophylaxis: Lovenox Full code Quality Stroke Does the patient have a stroke diagnosis?: No VTE Prior VTE?: No VTE Risk Level:: Medical - moderate - high VTE Device Contraindication: Treatment Not Indicated VTE Drug Contraindication: N/A - Med Ordered
[2024-08-03] MEDS: hydrALAZINE HCl 20 MG/ML VIAL IVPUSH ×2 (01:37→21:05)
[2024-08-03] MEDS: levETIRAcetam 500 MG TABLET PO ×3 (02:03→20:20)
[2024-08-03] MEDS: Lactated Ringers 500 ML IV (02:06)
[2024-08-03 04:51] LABS: MANUAL DIFF FLAG NO
[2024-08-03 04:59] LABS: Basophils Percent Auto 0.3 % (0-2); Eosinophils Percent Auto 0.1 % (0-4); Hematocrit 36.9 % (37.0-47.0); Imm Gran Abs Auto 0.02 X10*3/uL (0.00-0.03); Imm Gran Pct Auto 0.3 % (0.0-0.4); Lymphocytes Absolute Auto 0.8 X10*3/uL (1.2-4.9); Lymphocytes Percent Auto 11.8 % (20-40); Mean Corpuscular HGB Conc 32.5 g/dl (31.0-35.0); Mean Corpuscular Hemoglobin 27.8 pg (27.0-33.0); Mean Corpuscular Volume 85.4 fL (80.0-98.0); Mean Platelet Volume 11.9 fL (9.4-12.3); Monocytes Absolute Auto 0.4 X10*3/uL (0.1-1.2); Monocytes Percent Auto 5.8 % (2-11); Neutrophils Absolute Auto 5.8 x10*3/uL (2.0-8.3); Neutrophils Percent Auto 81.7 % (45-73); Platelet Count 197 X10*3/uL (160-400); Red Blood Count 4.32 X10*6/uL (4.20-5.50); Red Cell Distribution Width 13.6 % (11.0-16.0); White Blood Count 7.1 X10*3/uL (4.8-10.8)
[2024-08-03 05:17] LABS: Anion Gap 13 (12-20); Blood Urea Nitrogen 14 mg/dL (9-16); Calcium 8.8 mg/dL (8.4-10.2); Carbon Dioxide 26 mmol/L (22-29); Chloride 105 mmol/L (96-108); Estimated Glomerular Filt Rate > 60; Glucose Random 98 mg/dL (60-115); Potassium 3.7 mmol/L (3.3-5.1); Sodium 140 mmol/L (135-145)
--- NOTE | 2024-08-03 06:10 | PC.NURSE ---
Pt incont of urine, linens changed renaldo care provided. Purewick placed at this time
[2024-08-03] MEDS: Enoxaparin Sodium 40 MG/0.4 ML SYRINGE SUBCUT (08:23)
--- NOTE | 2024-08-03 08:34 | PC.NURSE ---
son updated on current condition
[2024-08-03] MEDS: 0.9 % Sodium Chloride Flush 3 ML SYRINGE IVFLUSH ×2 (08:59→15:21)
--- NOTE | 2024-08-03 09:24 | MHC.CM.PN ---
Shyanne 08/03/24, Pt. lives with her son and family, HCP is on file and confirmed: Alexander and Tracey. PCP is confirmed: Dr. Wilkins Pt. is active with [facility]. For DME, she has home O2 from [facility], a cane and a wheeled walker. Family to transport home at DC. DCP: home, resume [facility] services. CM to follow for DC needs.
--- NOTE | 2024-08-03 10:10 | PHA.MEDREC ---
Addendum entered by Amanda Wiley RPh 08/03/24 10:25: Med rec was reviewed by [facility]. Original Note: Pharmacy Consult ? Medication Reconciliation Pharmacy has completed the medication reconciliation. Spoke to patient HCP son Alexander to confirm med list. Son was able to confirm all of patient medications. Patient dose not use Albuterol sulf HFA ( dose not know how to use). Alexander states patient last took her medications yesterday.
--- NOTE | 2024-08-03 14:08 | PM.EVENT ---
Event Note Date of Service: 08/04/24 Event Note: This patient is seen and examined Lab imagin,reviewed. Physical exam and assessment and plan coordinated in h&Pnote, Agree with the plan in addition: presyncope moniter on tele Gip panel, ivy check orthostasis Time Spent With Patient Time: Total time managing care of this patient today ____ minutes.
[2024-08-03] MEDS: Atorvastatin Calcium 10 MG TABLET PO (15:16)
--- NOTE | 2024-08-03 15:38 | PC.NURSE ---
alert and oriented, with periods of forgetfulness. Medicated per jun, denies pain, orthostatics bp`s obtained, new purewick placed, ate well for lunch continues on clear liquid diet
[2024-08-03] MEDS: Memantine HCl 10 MG TABLET PO (20:20)
[2024-08-03] MEDS: Loratadine 10 MG TABLET PO (20:20)
--- NOTE | 2024-08-03 20:26 | PC.NURSE ---
BP elevated 181/80R- arm, 193/60L arm. Pt asymptomatic. notified.
[2024-08-03] MEDS: Losartan Potassium 50 MG TABLET PO (22:08)
[2024-08-03] MEDS: amLODIPine Besylate 10 MG TABLET PO (22:09)
[2024-08-04] MEDS: 0.9 % Sodium Chloride Flush 3 ML SYRINGE IVFLUSH ×2 (00:51→08:11)
[2024-08-04 03:47] VITALS: BP 153/59; PULSE 66; RESP 16; TEMP 36.8; O2SAT 96
[2024-08-04] MEDS: Omeprazole 20 MG CAPSULE.DR PO (06:36)
[2024-08-04] MEDS: Levothyroxine Sodium 112 MCG TABLET PO (06:36)
[2024-08-04 07:57] VITALS: BMI 22.7
[2024-08-04 08:00] VITALS: BP 161/72; PULSE 62; RESP 20; TEMP 36.3; O2SAT 96
[2024-08-04] MEDS: levETIRAcetam 500 MG TABLET PO (08:08)
[2024-08-04 08:09] VITALS: BP 161/72
[2024-08-04] MEDS: Memantine HCl 10 MG TABLET PO (08:09)
[2024-08-04] MEDS: Sertraline HCL 50 MG TABLET PO (08:09)
[2024-08-04] MEDS: Atorvastatin Calcium 10 MG TABLET PO (08:09)
[2024-08-04] MEDS: amLODIPine Besylate 10 MG TABLET PO (08:09)
[2024-08-04] MEDS: Enoxaparin Sodium 40 MG/0.4 ML SYRINGE SUBCUT (08:10)
[2024-08-04 09:18] VITALS: BP 161/72
--- NOTE | 2024-08-04 09:25 | MHC.CM.PN ---
PT is now recommending home with services, rather than STR. CM will follow.
--- NOTE | 2024-08-04 11:30 | PM.DS ---
DS: Providers Provider Date of Service: 08/04/24 Date of admission: 08/03/24 01:18 Date of discharge: 08/04/24 Primary care physician: Shane Nelson MD Attending physician on discharge: Little Mccoy Discharging clinician: Little Mccoy DS: Diagnosis Discharge Diagnosis (1) Pre-syncope: Status: Acute (2) Intractable diarrhea: Status: Acute (3) Intractable vomiting: Status: Acute DS: Summary Hospital Course Hospital Course: HPI:79-year-old female with pertinent history of epilepsy, mixed hyperlipidemia, hypertension, allergic rhinitis, chronic hypoxemic respiratory failure due to COPD on 2 L supplemental oxygen, IBS, mood disorder, osteoporosis, cognitive impairment, GERD with Ford's esophagus, hypothyroidism who presents to the emergency department evaluation after near-syncope. Patient states she had multiple episodes of nonbloody liquid stool on the day of presentation. This was associated with nausea and multiple episodes of nonbloody emesis. No abdominal pain, fever or chills. Patient states she felt weak and when she got up to go into the shower, she almost passed out. Patient was recently admitted with hypertensive urgency and acute metabolic encephalopathy due to UTI and discharged on 07/09/2024. No chest pain, palpitations, shortness of breath, changes in urinary habits. In the emergency department, imaging with proctitis. hospital course: Patient came to the hospital with nausea vomiting diarrhea,dehydration and also presyncopal symptoms: Patient was given hydration, CT abdomen was done-showed mild inflammation of rectum area (proactitis)but patient has diarrhea and nausea vomiting improved and with supportive care and hydration patient denies any new symptoms. Telemetry seems also fine, patient is not orthostatic. Above symptoms most likely related to viral gastroenteritis and spontaneously resolved, patient is tolerating diet, asymptomatic so will be going home. patient does not have rectal pain or tenesmus or rectal bleed or diarrhae resolved,asymptomatic. ua shows mild pyuria ,she does not have much symptoms ,urine culture -grew 10-50 k gram neg rods -added levoflox for 5 days ( discussed with family in detail). currently patient is asymptomatic so will inform urine culture and senstivities once available, no leucocytosis or fevers , family is comfortable to take home with po levaquin. Patient will be going home with services-he [facility] is aware about patient need Pt also. plan: levaquin 500 mg po daily for 5 days. Currently patient is amlodipine and hydrochlorothiazide started, next 1-2 days can introduce losartan back. Check BMP in 1 week Follow-up with PCP outpatient. Patient was updated in detail if any new symptoms patient is to go to nearest emergency room. Currently she is feeling much better so going home. Above management discussed with the patient in detail length with her and son , they understand and in agreement as well as comfortable with the above plan, time spent 40 minutes and 50% time spent on counseling.staff witnessed above conversation. . Time Attestation Total time managing care of this patient today: 40 mintues. Discharge Coordination Time (in mins): 40 min Quality: Safe Use of Opioids Does Pt have an Active Cancer Diagnosis on the Problem List?: No Quality: Stroke Does the patient have a stroke diagnosis?: No Physical Exam Vital Signs: Vital Signs: Last Vital Signs Temp 97.3 F 08/04/24 08:00 Pulse 62 08/04/24 08:00 Resp 20 08/04/24 08:00 BP 161/72 H 08/04/24 09:18 Pulse Ox 96 08/04/24 08:00 O2 Del Method Nasal Cannula 08/04/24 08:00 O2 Flow Rate 2 08/04/24 08:00 BMI result Body Mass Index 22.7 physical exam: awake ,alert , not in distress cvs:rrr, S1-S2 heard pulm:Regular breath sounds bilaterally,no rales or wheezing. Abdomen soft nontender, no guarding, no rigidity neuro: no focal motor deficit ext: no edema or cyanosis. DS: Data Data Completed and Pending Labs on day of discharge: Preliminary micro results at discharge 08/03/24 Unknown Urine Culture - Preliminary Urine Catheterized - Straight Catheter Gram negative shelby 08/03/24 00:16 Blood Culture - Preliminary Blood - Venous No growth after 24 hours. 08/03/24 00:17 Blood Culture - Preliminary Blood - Venous No growth after 24 hours. Imaging Chest x-ray: My impression: ct abd: 1. Wall thickening, submucosal edema and surrounding fat stranding and fluid in the rectum, concerning for proctitis 2. Dilated proximal pancreatic duct measuring up to 6 mm, increased from 4 mm. 3. Similar intra and extrahepatic biliary duct dilatation. Discharge Plan Discharge Anticipated Discharge Date/Time: 04/30/25 11:22 Patient Disposition: Home Health Service Discharge Diagnosis: nausea /vomiting -likely viral gastroenteritis -resolved, dehydration -improved with hydration. Referrals: Edith JEFFERSON [Outside] - 1 Week Po,Shane Miller MD [Primary Care Provider] - 1 Week Discharge Medications: New levofloxacin 500 mg tablet 500 mg PO DAILY Qty: 5 0RF Continued sertraline 50 mg tablet 50 mg PO DAILY Qty: 90 1RF simvastatin 20 mg tablet 20 mg PO BEDTIME 90 Days Qty: 90 2RF cetirizine 10 mg capsule 10 mg PO BEDTIME Qty: 90 3RF levetiracetam 500 mg tablet 500 mg PO BID diphenoxylate-atropine 2.5-0.025 mg tablet 1 - 2 tab PO BID PRN (Reason: Diarrhea) hydrochlorothiazide 25 mg Tablet 25 mg PO DAILY Qty: 90 0RF Protocol: Hold for SBP< HOLD for SBP < : 90 nystatin [Klayesta] 100,000 unit/gram powder 1 appl topical BID omeprazole 20 mg capsule,delayed release(DR/EC) 20 mg PO DAILY@0630 levothyroxine 112 mcg tablet 112 mcg PO DAILY@0600 amlodipine 10 mg tablet 10 mg PO DAILY (DME) blood pressure monitor [Blood Pressure Kit] Kit See Rx Instructions .ROUTE .MEDSUPPLY Qty: 1 0RF Rx Instructions: As directed memantine 10 mg tablet 10 mg PO BID Qty: 180 2RF (DME) POCKET CHAMBER Spacer See Rx Instructions .Route Qty: 1 0RF Rx Instructions: As directed Held losartan 50 mg Tablet 50 mg PO DAILY 90 Days Qty: 90 0RF Hold Instructions: Resume on 08/06/24. Protocol: Hold for SBP< HOLD for SBP < : 90 Discharge Orders: Discharge Order (Routine); Ordered 08/04/24 Ordered By: Little Mccoy Diet: Advance to usual diet Activity on Discharge: As tolerated Stand Alone Forms: Patient Portal Discharge page Print Language: Colombian Care Plan Goals: Patient came to the hospital with nausea vomiting diarrhea,dehydration and also presyncopal symptoms: Patient was given hydration, CT abdomen was done-showed mild inflammation of rectum area (proactitis)but patient has diarrhea and nausea vomiting improved and with supportive care and hydration patient denies any new symptoms. Telemetry seems also fine, patient is not orthostatic. Above symptoms most likely related to viral gastroenteritis and spontaneously resolved, patient is tolerating diet, asymptomatic so will be going home. patient does not have rectal pain or tenesmus or rectal bleed or diarrhae resolved,asymptomatic. ua shows mild pyuria ,she does not have much symptoms ,urine culture -grew 10-50 k gram neg rods -added levoflox for 5 days ( discussed with family in detail). currently patient is asymptomatic so will inform urine culture and senstivities once available, no leucocytosis or fevers , family is comfortable to take home with po levaquin. Patient will be going home with services. Health Concerns: As above. Plan of Treatment: Continue above management. levaquin 500 mg po daily for 5 days. Currently patient is amlodipine and hydrochlorothiazide started, next 1-2 days can introduce losartan back. Check BMP in 1 week Follow-up with PCP outpatient. Patient was updated in detail if any new symptoms patient is to go to nearest emergency room. Currently she is feeling much better so going home. Assessment: As above.
--- NOTE | 2024-08-04 11:43 | MHC.CM.PN ---
Patient has been medically cleared for dc to home today, with services; Patient is active with [facility], who has been notified of today's dc.
[2024-08-04 11:50] VITALS: BP 158/101; PULSE 61; RESP 20; TEMP 36.5; O2SAT 98
[2024-08-04] MEDS: hydroCHLOROthiazide 25 MG TABLET PO (12:05)
[2024-08-04] MEDS: levoFLOXacin 500 MG TABLET PO (12:05)
== END 2024-08-04 15:07 | disposition home health service (06) ==
LOC: HO.ED 08-03 00:43 → HO.EDOVER 08-03 01:21 → HO.IMC 08-04 06:50
PROVIDERS: Physician Assistant Medical; Admitting Provider Student in an Organized Health Care Education/Training Program; Emergency Provider Emergency Medicine; PCP Internal Medicine; Visit Provider Internal Medicine
DX: R11.2 Nausea with vomiting, unspecified (principal); E86.0 Dehydration; R82.81 Pyuria; R19.7 Diarrhea, unspecified; R55 Syncope and collapse; R53.1 Weakness; G40.909 Epilepsy, unspecified, not intractable, without status epilepticus; I10 Essential (primary) hypertension; J44.9 Chronic obstructive pulmonary disease, unspecified; E03.9 Hypothyroidism, unspecified; E78.5 Hyperlipidemia, unspecified; K21.9 Gastro-esophageal reflux disease without esophagitis; G31.84 Mild cognitive impairment of uncertain or unknown etiology; M19.90 Unspecified osteoarthritis, unspecified site; R26.89 Other abnormalities of gait and mobility; E78.2 Mixed hyperlipidemia; Z99.81 Dependence on supplemental oxygen; Z03.818 Encounter for observation for suspected exposure to other biological agents ruled out; Z79.899 Other long term (current) drug therapy
CPT/HCPCS: 0241U; 36415; 74177; 80048; 80053; 81001; 83605; 83735; 84484; 85025; 87040; 87086; 87088; 87186; 93005; 96361; 96365; 96367; 96372; 96375; 96376; 97116; 97162; 99222; 99285; J0360; J0744; J1650; J1836; J7120; Q9967

== ENCOUNTER → 2024-08-02 19:52 | Outpatient (BNV) | payer MEDICARE, SELFPAY | PROVIDERS: Admitting Provider Student in an Organized Health Care Education/Training Program; Emergency Provider Emergency Medicine; PCP Internal Medicine; Visit Provider Internal Medicine Cardiovascular Disease | DX: R00.1 Bradycardia, unspecified (principal) | CPT/HCPCS: 93010 ==

== ENCOUNTER → 2024-08-02 20:49 | Outpatient (BNV) | payer MEDICARE, SELFPAY | PROVIDERS: Emergency Provider Emergency Medicine; PCP Internal Medicine; Visit Provider Radiology Diagnostic Radiology | DX: R60.0 Localized edema (principal) | CPT/HCPCS: 74177 ==

== ENCOUNTER → 2024-08-03 01:18 | Outpatient (BNV) | payer MEDICARE, SELFPAY | PROVIDERS: Admitting Provider Student in an Organized Health Care Education/Training Program; Emergency Provider Emergency Medicine; PCP Internal Medicine; Visit Provider Student in an Organized Health Care Education/Training Program | DX: R55 Syncope and collapse (principal); R19.7 Diarrhea, unspecified; R11.10 Vomiting, unspecified | CPT/HCPCS: 99222 ==

== ENCOUNTER 2024-08-06 18:40 | Emergency (ER) | payer MEDICARE, SELFPAY ==
[2024-08-06] VITALS (7 sets, daily range): BP systolic 101–158; BP diastolic 43–69; PULSE 50–74; RESP 16–18; TEMP 36.1–36.8; O2SAT 95–100; BMI 24.9
--- NOTE | 2024-08-06 19:17 | ECG_ITS ---
Test Reason : NAUSEA/VOMITING Blood Pressure : */* mmHG Vent. Rate : 58 BPM Atrial Rate : 58 BPM P-R Int : 160 ms QRS Dur : 72 ms QT Int : 416 ms P-R-T Axes : 72 71 60 degrees QTcB Int : 408 ms Sinus bradycardia with Premature supraventricular complexes Nonspecific T wave abnormality Abnormal ECG When compared with ECG of 02-Aug-2024 19:52, Premature supraventricular complexes are now Present Referred By: Tierney Tim Electronically Signed By: Bang Kitchen
--- NOTE | 2024-08-06 19:30 | PC.NURSE ---
This is a 79-year-old female with pertinent history of epilepsy, mixed hyperlipidemia, hypertension, allergic rhinitis, chronic hypoxemic respiratory failure due to COPD on 2 L supplemental oxygen, IBS, mood disorder, osteoporosis, cognitive impairment, GERD with Ford's esophagus, hypothyroidism who presents to the emergency department evaluation after near-syncope. Seen on 08/03 for multiple episodes of nonbloody liquid stool on the day of presentation was associated with nausea and multiple episodes of nonbloody emesis. No abdominal pain, fever or chills. Patient states she felt weak. Patient presents with the same complaints today and states had a syncopal episode while on the toilet. Patient alert and oriented but frail. experimental outboard motors mechanic applied and NSR noted. Respirations even and non-labored. Pox in the high 90's on 2L via NC. Abdomen soft, non-tender with positive bowel sounds. Patient turned and repositioned for comfort and purewick applied. Positive pedal pulses with no edema noted.
--- NOTE | 2024-08-06 20:05 | MHC.EDTECH ---
Patient was biba from home ,vitals taken ,Patient was change into hospital attire ,all extra blanket removed from underneath Patient ,ekg taken and was read by Provider ,blood drawn ,rsv/covid swab collected and sent to lab ,Patient was hooked up to media monitor ,all safety measure in Place ,Call rojas within Pt reach .
[2024-08-06 20:06] LABS: MANUAL DIFF FLAG NO
[2024-08-06 20:08] LABS: Basophils Percent Auto 0.5 % (0-2); Eosinophils Percent Auto 0.5 % (0-4); Hematocrit 38.6 % (37.0-47.0); Imm Gran Abs Auto 0.02 X10*3/uL (0.00-0.03); Imm Gran Pct Auto 0.3 % (0.0-0.4); Lymphocytes Absolute Auto 0.7 X10*3/uL (1.2-4.9); Lymphocytes Percent Auto 11.6 % (20-40); Mean Corpuscular HGB Conc 31.1 g/dl (31.0-35.0); Mean Corpuscular Hemoglobin 27.2 pg (27.0-33.0); Mean Corpuscular Volume 87.5 fL (80.0-98.0); Mean Platelet Volume 11.1 fL (9.4-12.3); Monocytes Absolute Auto 0.4 X10*3/uL (0.1-1.2); Monocytes Percent Auto 7.4 % (2-11); Neutrophils Absolute Auto 4.6 x10*3/uL (2.0-8.3); Neutrophils Percent Auto 79.7 % (45-73); Platelet Count 195 X10*3/uL (160-400); Red Blood Count 4.41 X10*6/uL (4.20-5.50); Red Cell Distribution Width 13.8 % (11.0-16.0); White Blood Count 5.8 X10*3/uL (4.8-10.8)
[2024-08-06 20:24] LABS: Alanine Aminotransferase 9 U/L (0-31); Albumin Level 3.5 g/dL (3.5-5.0); Alkaline Phosphatase 62 U/L (39-117); Anion Gap 12 (12-20); Aspartate Amino Transferase 19 U/L (5-31); Bilirubin Total 0.3 mg/dL (0.0-1.0); Blood Urea Nitrogen 19 mg/dL (9-16); Calcium 9.2 mg/dL (8.4-10.2); Carbon Dioxide 27 mmol/L (22-29); Chloride 108 mmol/L (96-108); Creatinine Clr Calc Pharmacy 38.8; Estimated Glomerular Filt Rate 56; Glucose Random 133 mg/dL (60-115); Lipase 24 U/L (8-78); Magnesium 1.6 mg/dL (1.6-2.6); Potassium 4.2 mmol/L (3.3-5.1); Sodium 143 mmol/L (135-145); Total Protein 6.6 g/dL (6.5-8.0)
[2024-08-06 20:31] LABS: Troponin-I High Sensitivity 4.7 ng/L (<3.5-17.0)
[2024-08-06 20:44] LABS: Influenza A PCR NEGATIVE (Negative); Influenza B PCR NEGATIVE (Negative); Resp Syncy Virus RNA Qual PCR NEGATIVE (Negative); SARS COV2 PCR INHOUSE NEGATIVE (Negative)
--- NOTE | 2024-08-06 22:31 | ED_ITS ---
HPI - General Adult General Chief complaint: Nausea/Vomiting/Diarrhea Stated complaint: Syncopal episode, weakness Time Seen by Provider: 08/06/24 22:12 Source: patient, EMS, RN notes reviewed and old records reviewed Mode of arrival: EMS Limitations: no limitations History of Present Illness ED Provider: SHAJI CORCORAN PA-C HPI narrative: 79-year-old female with pmhx significant for epilepsy, HLD, HTN, chronic hypoxemic respiratory failure secondary to COPD on 2 L supplemental O2, IBS, mood disorder, OA, cognitive impairment, GERD, Ford's esophagus, hypothyroidism presents to the ED today via EMS from home for evaluation of generalized weakness and pre-syncope. Patient was recently admitted to our facility from 08/02/2024 to 08/04/2024 for acute proctitis. She was discharged on a course of Levaquin. Patient tells me that she was feeling well on discharge. She was presented with the option to go to rehab or to be discharged home. She declined rehab at that time. Over the last 2 days, patient has felt increasingly more weak. She reports 1 episode of vomiting yesterday and again this morning. Denies any significant abdominal pain or discomfort. Admits to continued diarrhea. She currently lives with her daughter who is having difficulty caring for her as she is becoming increasingly more weak. Patient tells me that she would like to go to a rehab facility. Denies fever, chills, flank pain, urinary symptoms. Denies any nausea or abdominal pain at present. Denies chest pain, shortness of breath, palpitations. Denies falls/trauma/injury. Related Data Home Medications ?Medication ?Instructions ?Recorded ?Confirmed levetiracetam 500 mg tablet 500 mg PO BID 07/31/23 08/07/24 diphenoxylate-atropine 2.5 1 - 2 tab PO BID PRN Diarrhea 07/07/24 08/07/24 mg-0.025 mg tablet amlodipine 10 mg tablet 10 mg PO DAILY 08/03/24 08/07/24 levothyroxine 112 mcg tablet 112 mcg PO DAILY@0608/03/24 08/07/24 nystatin 100,000 unit/gram topical 1 appl topical BID 08/03/24 08/07/24 powder (Klayesta) omeprazole 20 mg capsule,delayed 20 mg PO DAILY@0630 08/03/24 08/07/24 release Previous Rx's ?Medication ?Instructions ?Recorded blood pressure monitor (Blood #1 ea 05/06/22 Pressure Kit) inhalational spacing device #1 ea 08/18/23 (POCKET CHAMBER spacer) simvastatin 20 mg tablet 20 mg PO BEDTIME 90 days #90 tabs 03/19/24 memantine 10 mg tablet 10 mg PO BID #180 tabs 04/12/24 hydrochlorothiazide 25 mg tablet 25 mg PO DAILY #90 tabs 07/09/24 losartan 50 mg tablet 50 mg PO DAILY 90 days #90 tabs 07/09/24 cetirizine 10 mg capsule 10 mg PO BEDTIME Allergy Symptoms 07/26/24 #90 caps levofloxacin 500 mg tablet 500 mg PO DAILY #5 tabs 08/04/24 sertraline 50 mg tablet 50 mg PO DAILY #90 tabs 08/06/24 Allergies Allergy/AdvReac Type Severity Reaction Status Date / Time amoxicillin [AMOXICILLIN] Allergy Intermediate STOMACH Verified 08/06/24 19:09 ISSUES pollen extracts [POLLEN] Allergy Mild RUNNY Verified 08/06/24 19:09 NOSE, SNEEZING, ITCHY EYES Sulfa (Sulfonamide Allergy Unknown Verified 08/06/24 19:09 Antibiotics) Review of Systems 2 Review of Systems: Yes all other systems are reviewed and are negative PMFSH Past Medical History Attestation statement: The following information was validated with the patient. Source: old records reviewed and nursing notes reviewed Medical History Generalized anxiety disorder Nocturnal hypoxemia Acute rhinosinusitis Microscopic hematuria Renal cyst Osteoarthritis, knee COPD (chronic obstructive pulmonary disease) Acute and chronic respiratory failure with hypoxia COPD exacerbation LFT elevation Shortness of breath Rash Bilateral knee pain Hematuria Frequent falls Left-sided back pain Seizure disorder Allergic rhinitis Generalized abdominal pain Anemia Initial Medicare annual wellness visit Screening for osteoporosis Hypoxemia Anemia Syncope Nausea Chronic diarrhea Diarrhea Bile salt-induced diarrhea Cutaneous lupus erythematosus Osteoarthritis Hypertension Vitamin D deficiency COPD (chronic obstructive pulmonary disease) Ford's esophagus GERD (gastroesophageal reflux disease) Hypothyroid Surgical History History of cataract surgery History of rectal surgery History of ear surgery History of cholecystectomy History of eye surgery Family History Family History Father Lymphoma Lung cancer Mother Hypertension Diabetes Sister Brain cancer Social History Social History Household Members: Family Household Members Other:: son, his and their 2 kids Housing: House Do you presently have visiting nurse or other home services: Yes Alcohol intake: former Patient Tobacco Use Status: Former Tobacco user Tobacco use type: Cigarette e-Cigarette/Vaping Use: Never Used Second Hand Smoke Exposure: Yes Advance Directives: Yes Advance Directives on File: Yes Advance Directives Date on File: 08/04/23 service: No Current occupational status: retired Cognitive needs: Yes (Walker, Cane) Hearing needs: Yes (hearing aide) Vision needs: Yes (Glasses) Physical Exam ED Vital Signs: Vital Signs - 24 hr 08/06/24 18:54 08/06/24 19:13 08/06/24 19:47 Temperature 97.0 F 98.2 F Pulse Rate 62 70 57 Respiratory Rate 18 18 16 Blood Pressure 123/44 L 115/44 L 122/49 L Pulse Oximetry 95 98 100 Oxygen Delivery Method Nasal Cannula Nasal Cannula Nasal Cannula Oxygen Flow Rate 2 2 08/06/24 21:50 08/06/24 22:34 08/06/24 22:36 Temperature 97.5 F Pulse Rate 57 50 52 Respiratory Rate 16 Blood Pressure 134/52 L 158/52 H 136/50 L Pulse Oximetry 99 Oxygen Delivery Method Room Air Oxygen Flow Rate 08/06/24 22:38 08/07/24 00:33 08/07/24 02:33 Temperature 98.1 F 97.9 F Pulse Rate 74 60 57 Respiratory Rate 14 12 Blood Pressure 101/69 133/40 L 146/59 H Pulse Oximetry 98 99 Oxygen Delivery Method Room Air Nasal Cannula Oxygen Flow Rate 2 08/07/24 03:09 08/07/24 03:15 08/07/24 03:32 Temperature Pulse Rate 66 58 Respiratory Rate Blood Pressure 193/78 H 178/63 H 188/63 H Pulse Oximetry Oxygen Delivery Method Oxygen Flow Rate 08/07/24 06:21 08/07/24 06:26 08/07/24 06:42 Temperature 98.8 F Pulse Rate 53 Respiratory Rate 13 Blood Pressure 184/70 H 181/58 H 181/58 H Pulse Oximetry 98 Oxygen Delivery Method Nasal Cannula Oxygen Flow Rate 2 08/07/24 07:19 08/07/24 07:20 08/07/24 08:25 Temperature Pulse Rate 72 Respiratory Rate 19 Blood Pressure 157/72 H Pulse Oximetry 85 L 95 95 Oxygen Delivery Method Room Air Nasal Cannula Nasal Cannula Oxygen Flow Rate 2 2 08/07/24 10:09 08/07/24 10:59 08/07/24 11:59 Temperature Pulse Rate 66 57 61 Respiratory Rate 12 18 Blood Pressure 132/82 148/61 H 160/53 H Pulse Oximetry 99 98 96 Oxygen Delivery Method Nasal Cannula Room Air Oxygen Flow Rate 2 08/07/24 12:25 08/07/24 14:48 Temperature 97.6 F Pulse Rate 56 68 Respiratory Rate 14 13 Blood Pressure 144/61 H 154/54 H Pulse Oximetry 100 98 Oxygen Delivery Method Nasal Cannula Room Air Oxygen Flow Rate 2 BMI result Body Mass Index 24.9 Vital signs stable General: chronically ill appearing however in NAD, on 2L NC Skin: Warm, dry, intact. No rashes or lesions. Head: Normocephalic, atraumatic. EENT: Hearing is intact b/l. Conjunctiva clear. Sclera is anicteric. PERRLA. EOM intact. Moist mucous membranes.? Neck: Supple without LAD Cardiac: Chest wall symmetric. RRR Lungs: Normal respiratory effort without accessory muscle use. CTA bilaterally Abdomen: Soft, non-tender, non-distended. No rebound tenderness or guarding. Positive BS x4. Back: No midline spinous or paraspinal tenderness. No step off deformity. Ext: Upper and lower extremities atraumatic, without tenderness, deformity, swelling or erythema Neuro: AOx3. Normal speech. NIH 0. Strength 3/5 intact throughout. No saddle anesthesia. Sensation intact to light touch. NV intact distally. Psych: Appropriate mood and affect. Responds appropriately to questions. Course Course Course Narrative: 1257 -- CBC without leukocytosis. No anemia. H&H stable. Chemistry without acute electrolyte abnormality requiring intervention. BUN mildly elevated to 19 with normal creatinine. GFR 56. Random glucose 133. Liver function WNL. troponin wnl x2. Negative COVID, flu, RSV. > UA, GI panel, C diff pending > treated with 1L IVF > I had a long discussion with patient. She tells me that she was presented with options on discharge 2 days ago. She declined going to a rehab facility stating that she wanted to go home. She states she regrets this decision. She would like to go to a rehab facility where she can regain her strength. Given unremarkable workup, benign exam, and really no change in her symptoms I feel this is reasonable. I will place PT/case management consultation. She was discharged yesterday on Levaquin for proctitis. Will order these meds. I also had a long discussion with patient regarding her code status. She tells me that she is DNR DNI. > physician observation initiated pending PT/case management consults and disposition Reevaluation(s) Reevaluation #1: 1983-discontinue physician observation as patient is being discharged to [facility] for STR. Medications Administered Generic Name Dose Route Start Last Admin Trade Name Freq PRN Reason Stop Dose Admin Amlodipine Besylate 10 mg 08/07/24 11:00 08/07/24 11:56 Amlodipine Besylate 10 Mg Tablet PO 10 mg DAILY BRENT Administration Protocol Hydrochlorothiazide 25 mg 08/07/24 11:00 08/07/24 11:57 Hydrochlorothiazide 25 Mg Tablet PO 25 mg DAILY BRENT Administration Protocol Levetiracetam 500 mg 08/07/24 11:00 08/07/24 11:57 Levetiracetam 500 Mg Tablet PO 500 mg BID BRENT Administration Levofloxacin 500 mg 08/07/24 11:00 08/07/24 11:56 Levofloxacin 500 Mg Tablet PO 08/09/24 09:01 500 mg DAILY BRENT Administration Levothyroxine Sodium 112 mcg 08/07/24 11:00 08/07/24 11:57 Levothyroxine Sodium 112 Mcg Tablet PO 112 mcg DAILY@0600 BRENT Administration Losartan Potassium 50 mg 08/07/24 11:00 08/07/24 11:57 Losartan Potassium 50 Mg Tablet PO 50 mg DAILY BRENT Administration Protocol Memantine 10 mg 08/07/24 11:00 08/07/24 11:56 Memantine Hcl 10 Mg Tablet PO 10 mg BID BRENT Administration Nystatin 1 appl 08/07/24 11:00 08/07/24 11:57 Nystatin Powder 15 Gm Bottle TOPICAL 1 appl BID BRENT Administration Protocol Omeprazole 20 mg 08/07/24 11:00 08/07/24 11:57 Omeprazole 20 Mg Capsule. PO 20 mg DAILY@0630 BRENT Administration Sertraline HCl 50 mg 08/07/24 11:00 08/07/24 11:56 Sertraline Hcl 50 Mg Tablet PO 50 mg DAILY BRENT Administration Discontinued Medications Generic Name Dose Route Start Last Admin Trade Name Chadd PRN Reason Stop Dose Admin Sodium Chloride 1,000 mls @ 999 mls/hr 08/06/24 23:30 08/07/24 01:27 Ns IV 08/07/24 00:30 Infused .Q1H1M BRENT Infusion Levofloxacin 500 mg 08/07/24 01:02 08/07/24 02:15 Levofloxacin 500 Mg Tablet PO 08/07/24 01:03 500 mg DAILY ONE Administration Losartan Potassium 50 mg 08/07/24 03:28 08/07/24 03:32 Losartan Potassium 50 Mg Tablet PO 08/07/24 03:29 50 mg ONCE ONE Administration Protocol Losartan Potassium 50 mg 08/07/24 06:32 08/07/24 06:42 Losartan Potassium 50 Mg Tablet PO 08/07/24 06:33 50 mg ONCE ONE Administration Protocol Medical Decision Making Medical Decision Making MDM Narrative: 79-year-old female with pmhx significant for epilepsy, HLD, HTN, chronic hypoxemic respiratory failure secondary to COPD on 2 L supplemental O2, IBS, mood disorder, OA, cognitive impairment, GERD, Ford's esophagus, hypothyroidism presents to the ED today via EMS from home for evaluation of generalized weakness and pre-syncope. Differential diagnosis includes anemia, electrolyte abnormality, dehydration, orthostatic hypotension, ACS, arrhythmia, physical deconditioning, FTT, cdiff, viral syndrome, UTI Plan for labs, UA, ekg, trop, viral swabs, GI panel/cdiff testing I do not feel as though imaging is warranted at this time Differential Diagnosis Differential Diagnoses: The differential diagnosis associated with the presentation includes As the Admission/Observation Not indicated Lab Data [facility] Lab Attestation statement: I reviewed the patient's lab results. As above 08/06/24 20:00 08/06/24 20:00 Labs: Lab Results 08/06/24 08/07/24 08/07/24 Range/Units 20:00 03:11 06:24 WBC 5.8 (4.8-10.8) X10*3/uL RBC 4.41 (4.20-5.50) X10*6/uL Hgb 12.0 (12.0-16.0) g/dl Hct 38.6 (37.0-47.0) % MCV 87.5 (80.0-98.0) fL MCH 27.2 (27.0-33.0) pg MCHC 31.1 (31.0-35.0) g/dl RDW 13.8 (11.0-16.0) % Plt Count 195 (160-400) X10*3/uL MPV 11.1 (9.4-12.3) fL Immature Gran % (Auto) 0.3 (0.0-0.4) % Neut % (Auto) 79.7 H (45-73) % Lymph % (Auto) 11.6 L (20-40) % Mcmullen % (Auto) 7.4 (2-11) % Eos % (Auto) 0.5 (0-4) % Baso % (Auto) 0.5 (0-2) % Lymph # (Auto) 0.7 L (1.2-4.9) X10*3/uL Mcmullen # (Auto) 0.4 (0.1-1.2) X10*3/uL Eos # (Auto) 0.0 (0.0-0.4) X10*3/uL Baso # (Auto) 0.0 (0.0-0.2) X10*3/uL Abs Immat Gran (auto) 0.02 (0.00-0.03) X10*3/uL Absolute Neuts (auto) 4.6 (2.0-8.3) x10*3/uL Absolute Nucleated RBC 0.000 (0.0-0.012) X10*3/uL Nucleated RBC % (auto) 0.0 (0.0-0.2) /100WBC Sodium 143 (135-145) mmol/L Potassium 4.2 (3.3-5.1) mmol/L Chloride 108 (96-108) mmol/L Carbon Dioxide 27 (22-29) mmol/L Anion Gap 12 (12-20) BUN 19 H (9-16) mg/dL Creatinine 0.96 (0.5-1.4) mg/dL Estim Creat Clear Calc 38.8 Estimated GFR 56 Random Glucose 133 H (60-115) mg/dL Calcium 9.2 (8.4-10.2) mg/dL Magnesium 1.6 (1.6-2.6) mg/dL Total Bilirubin 0.3 (0.0-1.0) mg/dL AST 19 (5-31) U/L ALT 9 (0-31) U/L Alkaline Phosphatase 62 (39-117) U/L Troponin I High Sens 4.7 D 5.8 (<3.5-17.0) ng/L Total Protein 6.6 (6.5-8.0) g/dL Albumin 3.5 (3.5-5.0) g/dL Lipase 24 (8-78) U/L Urine Color Yellow Urine Appearance Clear Urine pH 5.5 (5.0-9.0) Ur Specific [place] 1.020 (1.005-1.025) Urine Protein Negative (Neg-Trace) mg/dL Urine Glucose (UA) Negative (Negative) mg/dL Urine Ketones Negative (Negative) mg/dL Urine Blood Trace H (Negative) Urine Nitrite Negative (Negative) Ur Leukocyte Esterase Negative (Negative) Urine RBC 0-2 (0-2) /HPF Urine WBC 0-5 (0-5) /HPF Ur Squamous Epith Cells 3-5 (0-2) /HPF Urine Bacteria None Seen (None Seen) Hyaline Casts 0-2 (0-2) /LPF Influenza Type A (PCR) NEGATIVE (Negative) Influenza Type B (PCR) NEGATIVE (Negative) RSV RNA Qual (PCR) NEGATIVE (Negative) SARS-CoV-2 RNA (RT-PCR) NEGATIVE (Negative) Independent Interpretation I performed an independent interpretation of an: EKG Interpretation: EKG showing sinus bradycardia with premature supraventricular complexes, rate of 58 beats per minute, no acute ischemic changes Independent Historian Clinical information obtained from an independent historian. History obtained from or confirmed by: EMS External Record Review External record reviewed: Inpatient record Prescription Management I considered prescription management with: Antibiotic Social Determinants Patient?s care significantly limited by Social Determinants of Health including: Other Social Determinant of Health Critical Care Time Critical Care Time Critical Care Time: No Discharge Plan Discharge Clinical Impression: Proctitis, Physical deconditioning Patient Disposition: Xfer SNF Transfer Details: [facility] Instructions: Weakness (ED) Additional Instructions: She needs to be on levaquin until 08/09 Prescriptions: No Action simvastatin 20 mg tablet 20 mg PO BEDTIME 90 Days Qty: 90 2RF cetirizine 10 mg capsule 10 mg PO BEDTIME Qty: 90 3RF sertraline 50 mg tablet 50 mg PO DAILY Qty: 90 1RF levetiracetam 500 mg tablet 500 mg PO BID diphenoxylate-atropine 2.5-0.025 mg tablet 1 - 2 tab PO BID PRN (Reason: Diarrhea) losartan 50 mg Tablet 50 mg PO DAILY 90 Days Qty: 90 0RF Protocol: Hold for SBP< HOLD for SBP < : 90 hydrochlorothiazide 25 mg Tablet 25 mg PO DAILY Qty: 90 0RF Protocol: Hold for SBP< HOLD for SBP < : 90 nystatin [Klayesta] 100,000 unit/gram powder 1 appl topical BID omeprazole 20 mg capsule,delayed release(DR/EC) 20 mg PO DAILY@0630 levothyroxine 112 mcg tablet 112 mcg PO DAILY@0600 amlodipine 10 mg tablet 10 mg PO DAILY levofloxacin 500 mg tablet 500 mg PO DAILY Qty: 5 0RF Rx Instructions: TAKE THROUGH 08/09/24 (DME) blood pressure monitor [Blood Pressure Kit] Kit See Rx Instructions .ROUTE .MEDSUPPLY Qty: 1 0RF Rx Instructions: As directed memantine 10 mg tablet 10 mg PO BID Qty: 180 2RF (DME) POCKET CHAMBER Spacer See Rx Instructions .Route Qty: 1 0RF Rx Instructions: As directed Referrals: Edith JEFFERSON [Outside] Po,Shane Miller MD [Primary Care Provider] - Print Language: [place] Irish
--- NOTE | 2024-08-06 22:47 | PC.NURSE ---
Alexander Galindo - Patients son [phone]
[2024-08-07] VITALS (17 sets, daily range): BP systolic 132–193; BP diastolic 40–82; PULSE 53–72; RESP 12–19; TEMP 36.4–37.1; O2SAT 85–100
[2024-08-07] MEDS: 0.9 % Sodium Chloride 1,000 ML 999 ML IV (00:26)
[2024-08-07] MEDS: levoFLOXacin 500 MG TABLET PO ×2 (02:15→11:56)
--- NOTE | 2024-08-07 02:50 | PC.NURSE ---
PT unable to recall medications, her family manages and administers her medications. Provider aware
[2024-08-07] MEDS: Losartan Potassium 50 MG TABLET PO ×3 (03:32→11:57)
[2024-08-07 03:36] LABS: Troponin-I High Sensitivity 5.8 ng/L (<3.5-17.0)
[2024-08-07 06:33] LABS: Appearance Urine Clear; Color Urine Yellow; Glucose Urine UA Negative (Negative); Leukocyte Esterase Urine Negative (Negative); Nitrite Urine Negative (Negative); PH 5.5 (5.0-9.0); UMIC TRIGGER UACC YES; Urine Blood Trace (Negative); Urine Ketones Negative (Negative); Urine Protein Negative (Neg-Trace)
[2024-08-07 06:38] LABS: Bacteria Urine None Seen (None Seen); Hyaline Casts Urine 0-2 /LPF (0-2); RBC Urine 0-2 /HPF (0-2); WBC Urine 0-5 /HPF (0-5)
--- NOTE | 2024-08-07 06:44 | PC.NURSE ---
BP elevated provider notified. medicated as per MAR
--- NOTE | 2024-08-07 08:26 | PC.NURSE ---
Pt desats to 85% RA; O2 on at 2 ltr NC and sat now 95%; pt speaking full sentences; vss@baseline; pt tolerating PO intake; awaiting PT and CM consults for disposition
--- NOTE | 2024-08-07 10:16 | PHA.MEDREC ---
Pharmacy Consult ? Medication Reconciliation Pharmacy has completed the medication reconciliation. MED REC COMPLETE USING CLAIM HISTORY AND DISCHARGE FROM THIS FACILITY FROM 08/04/24.
--- NOTE | 2024-08-07 10:35 | PC.NURSE ---
Pt moved to different room; report gv to CHARO Gooden; care relinquished at this time
--- NOTE | 2024-08-07 10:59 | PC.NURSE ---
Daughter in law will updated that patient was seen by PT this am, daughter in law stating patient needs rehab she is too weak to return home right now. Sarah asking for case management to call her at [phone] as Alexander is working today
[2024-08-07] MEDS: amLODIPine Besylate 10 MG TABLET PO (11:56)
[2024-08-07] MEDS: Memantine HCl 10 MG TABLET PO (11:56)
[2024-08-07] MEDS: Sertraline HCL 50 MG TABLET PO (11:56)
[2024-08-07] MEDS: Levothyroxine Sodium 112 MCG TABLET PO (11:57)
[2024-08-07] MEDS: hydroCHLOROthiazide 25 MG TABLET PO (11:57)
[2024-08-07] MEDS: Nystatin Powder 15 GM BOTTLE 1 APPL TOPICAL (11:57)
[2024-08-07] MEDS: levETIRAcetam 500 MG TABLET PO (11:57)
[2024-08-07] MEDS: Omeprazole 20 MG CAPSULE.DR PO (11:57)
--- NOTE | 2024-08-07 12:00 | PC.NURSE ---
Patient does not recall where she puts nystatin powder when she uses it at home. No fungal rash in groin, slight redness under left breast- nystatin applied
--- NOTE | 2024-08-07 12:25 | PC.NURSE ---
Alert and oriented to person and place, patient with intermittent confusion. Denies pain, aware that plan is for rehab
--- NOTE | 2024-08-07 12:33 | MHC.CM.PN ---
Addendum entered by Bella Serrano 08/07/24 13:16: [facility] HAS OFFERED A BED FOR TODAY, PT/FAMILY ARE IN AGREEMENT WITH PLAN. BLS TRANSPORT BOOKED [facility]IA [facility] FOR 4 PM. PROVIDER UPDATED. Original Note: CM RECEIVED CM ED CONSULT. CM MET WITH PT AT BEDSIDE. PT LIVES WITH SON/DIL AND USES A CANE/ROLLATOR FOR MOBILITY. [facility] PT IS ACTIVE WITH [facility] . +HCP ON FILE AND VERIFIED. PCP DR. SALDIVAR. DP: P.T. HAS RECOMMENDED STR, PT HAS NOT HAD A QHS SO REFERRALS MADE TO ACUTE REHAB. PT GIVES PERMISSION FOR THIS CM TO SPEAK WITH HER SON ANDERS IF NEEDED. CM IS AWAITING [facility] TO REVIEW., RETURN REFERRAL SENT TO [facility]. SON WILL TRANSPORT HOME VS BLS IF ABLE TO GO TO REHAB. ED PROVIDER UPDATED. CM CONTINUES TO FOLLOW
--- NOTE | 2024-08-07 13:52 | PC.NURSE ---
Rpeort given to Barbara at [facility] in [place], patient and family aware and agreeable to transfer
== END 2024-08-07 16:36 | disposition skilled nursing facility (03) ==
PROVIDERS: Nurse Practitioner Family; Physician Assistant Medical; Emergency Provider Emergency Medicine; PCP Internal Medicine
DX: K62.89 Other specified diseases of anus and rectum (principal); R55 Syncope and collapse; I10 Essential (primary) hypertension; E78.5 Hyperlipidemia, unspecified; J44.9 Chronic obstructive pulmonary disease, unspecified; G40.909 Epilepsy, unspecified, not intractable, without status epilepticus; Z72.3 Lack of physical exercise; Z79.899 Other long term (current) drug therapy; Z03.818 Encounter for observation for suspected exposure to other biological agents ruled out
CPT/HCPCS: 0241U; 36415; 80053; 81001; 83690; 83735; 84484; 85025; 93005; 96360; 97162; 99285

== ENCOUNTER → 2024-08-06 19:17 | Outpatient (BNV) | payer MEDICARE, SELFPAY | PROVIDERS: Emergency Provider Emergency Medicine; PCP Internal Medicine; Visit Provider Internal Medicine Cardiovascular Disease | DX: I49.1 Atrial premature depolarization (principal); R00.1 Bradycardia, unspecified | CPT/HCPCS: 93010 ==

== ENCOUNTER 2024-09-13 13:50 | Outpatient (AMB) | payer MEDICARE, SELFPAY ==
[2024-09-13 14:01] VITALS: BP 110/64; PULSE 67; O2SAT 92; BMI 21.2
--- NOTE | 2024-09-13 14:01 | MHC.OFFVIS ---
Vital Signs 09/13/24 14:01 Height 5 ft 1 in Weight 112 lb 0.44 oz BMI 21.2 BP 110/64 Blood Pressure Location Lt brachial Position Sitting Pulse 67 Pulse Source Pulse Oximeter Pulse Oximetry (%) 92 Oxygen Delivery Method Room Air Intake Visit Reasons: copd Intake Note: pt is here for follow up and states she is using oxygen all night long and off/on during the day. 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 On Call Required: No Allergies amoxicillin [AMOXICILLIN] Allergy (Intermediate, Verified 09/13/24 14:23) STOMACH ISSUES pollen extracts [POLLEN] Allergy (Mild, Verified 09/13/24 14:23) RUNNY NOSE, SNEEZING, ITCHY EYES Sulfa (Sulfonamide Antibiotics) Allergy (Verified 09/13/24 14:23) Unknown Medication List - Last Reconciled 09/13/24 by Andrew Menendez MD amlodipine 10 mg PO DAILY blood pressure monitor (Blood Pressure Kit) As directed cetirizine 10 mg PO BEDTIME diphenoxylate-atropine 2.5-0.025 mg 1 - 2 tabs PO BID PRN inhalational spacing device (POCKET CHAMBER spacer) As directed levetiracetam 500 mg PO BID levothyroxine 112 mcg PO DAILY losartan 50 mg See Protocol PO DAILY 90 days memantine 10 mg PO BID nystatin (Klayesta) 1 appl topical BID omeprazole 20 mg PO DAILY@0630 sertraline 50 mg PO DAILY simvastatin 20 mg PO BEDTIME 90 days HPI HPI copd: Details: 79 years old very pleasant female, who is slightly forgetful, comes with her son for routine 6 months visit. She has remained very stable without any acute exacerbation. She uses O2 2 L/minute the whole night and p.r.n. during the daytime. Luckily she has had no respiratory infection or any exacerbation. She denies cough or wheezing Denies getting short of breath when she walks in the house with walker. [facility]LY [facility] Medical History Generalized anxiety disorder Nocturnal hypoxemia Acute rhinosinusitis Microscopic hematuria Renal cyst Osteoarthritis, knee COPD (chronic obstructive pulmonary disease) Acute and chronic respiratory failure with hypoxia COPD exacerbation LFT elevation Shortness of breath Rash Bilateral knee pain Hematuria Frequent falls Left-sided back pain Seizure disorder Allergic rhinitis Generalized abdominal pain Anemia Initial Medicare annual wellness visit Screening for osteoporosis Hypoxemia Anemia Syncope Nausea Chronic diarrhea Diarrhea Bile salt-induced diarrhea Cutaneous lupus erythematosus Osteoarthritis Hypertension Vitamin D deficiency COPD (chronic obstructive pulmonary disease) Ford's esophagus GERD (gastroesophageal reflux disease) Hypothyroid Surgical History History of cataract surgery History of rectal surgery History of ear surgery History of cholecystectomy History of eye surgery Family History Father Lymphoma Lung cancer Mother Hypertension Diabetes Sister Brain cancer Social History Household Members: Family Household Members Other:: son, his and their 2 kids Housing: House Do you presently have visiting nurse or other home services: Yes Alcohol intake: former Patient Tobacco Use Status: Former Tobacco user Tobacco use type: Cigarette e-Cigarette/Vaping Use: Never Used Second Hand Smoke Exposure: Yes Advance Directives Date on File: 08/04/23 service: No Current occupational status: retired Cognitive needs: Yes (Walker, Cane) Hearing needs: Yes (hearing aide) Vision needs: Yes (Glasses) Review of Systems Const All systems reviewed & are unremarkable except as noted in HPI and below Eyes Reports no additional complaints ENT Reports nasal congestion (Mild off and) Card Denies chest pain, Denies irregular heart rhythm and Denies leg edema Resp Reports as per HPI GI Reports heartburn (GERD symptoms controlled with med) Reports no additional complaints Musc Reports no additional complaints Skin/Breast Reports system reviewed and no additional complaints, except as documented Neuro Reports no additional complaints Psych Reports no additional complaints Endo Reports no additional complaints Physical Exam Vital Signs: Last Vital Signs Pulse 67 09/13/24 14:01 BP 110/64 09/13/24 14:01 Pulse Ox 92 09/13/24 14:01 Oxygen Delivery Method Room Air 09/13/24 14:01 BMI result Body Mass Index 21.2 Const General: comfortable, no acute distress, alert and awake Orientation/consciousness: patient oriented x3 HEENT Head: Yes normal to inspection General nose exam: No nasal polyps present, No nasal discharge present and Other nasal findings present (Marked nasal congestion on both sides with hypertrophy of the turbinates ) Face and sinus: Yes sinuses nontender Mouth: oropharynx normal Throat: Yes posterior oropharynx normal Eyes General: appearance normal, both eyes and all related structures Neck Neck: Yes normal visual inspection, Yes no lymphadenopathy, Yes trachea midline and Yes no JVD Thyroid: Thyroid normal Chest Chest palpation & inspection: normal inspection of the chest, normal palpation of entire chest wall and no tenderness Resp Other: Percussion note resonant, breath sounds are slightly distant with prolonged expiratory phase. NO WHEEZES CREPITATIONS OR RHONCHI ARE HEARD TODAY. Cardio Palpation: normal PMI Rate: regular rate Rhythm: regular rhythm Heart sounds: no gallops and no murmurs GI Palpation (GI): Soft to palpation, nontender, No hepatosplenomegaly present and no masses Auscultation: normal bowel sounds Back/Spine/Pelvis Thoracic/Lumbar Spine: thoracic and lumbar spine normal to inspection Skin General skin exam: no rashes or lesions noted and other (Hands are cold, due to chronic Raynaud syndrome) Neuro General: patient oriented x3 and no focal motor deficits Cranial nerves: Yes CN's II-XII intact bilaterally Extrem General: Yes normal to inspection, Yes no clubbing, cyanosis or edema and Yes no calf tenderness Psych Appearance: grossly normal and well kempt Speech and movement: Normal speech and movement present Assessment & Plan Assessment & Plan (1) COPD (chronic obstructive pulmonary disease): Comment: Clinically she does have chronic obstructive pulmonary disease. Moderately severe and well controlled at this time. She has had no acute exacerbation. She has stopped using Advair. Code(s): J44.9 - Chronic obstructive pulmonary disease, unspecified Category: Medical Plan: Albuterol HFA 2 puffs Q 6 hours only p.r.n. (2) Nocturnal hypoxemia: Comment: She is known to have nocturnal hypoxemia and also has intermittent exercise induced hypoxemia during the daytime. .Basically has remained stable Code(s): G47.34 - Idiopathic sleep related nonobstructive alveolar hypoventilation Category: Medical Plan: Advised to continue using oxygen 2 L/minute at night and 2 L/minute p.r.n. during the daytime. If she has shortness of breath or when she goes outdoors. Coding Level of Care Code Est Pt Level 3 (83503) Diagnoses COPD (chronic obstructive pulmonary disease) J44.9 Nocturnal hypoxemia G47.34
== END 2024-09-13 14:24 | disposition home or self-care (01) ==
LOC: HO.HPS 13:51
PROVIDERS: PCP Internal Medicine; Visit Provider Internal Medicine
DX: J44.9 Chronic obstructive pulmonary disease, unspecified (principal); G47.34 Idiopathic sleep related nonobstructive alveolar hypoventilation
CPT/HCPCS: 99213

== ENCOUNTER → 2024-09-13 13:50 | Outpatient (BNVA) | payer MEDICARE, SELFPAY | PROVIDERS: PCP Internal Medicine; Visit Provider Internal Medicine | DX: J44.9 Chronic obstructive pulmonary disease, unspecified (principal); G47.34 Idiopathic sleep related nonobstructive alveolar hypoventilation | CPT/HCPCS: 99212 ==

== ENCOUNTER 2024-10-25 12:48 | Outpatient (AMB) | payer MEDICARE, SELFPAY ==
--- NOTE | 2024-10-25 13:04 | A.OFFPC_ITS ---
Vital Signs 10/25/24 13:06 Height 5 ft 1 in Weight 113 lb BMI 21.3 BP 124/72 Blood Pressure Location Lt brachial Position Sitting Pulse 61 Pulse Source Pulse Oximeter Temp 97.1 F Temp Source Temporal Artery Scan Pulse Oximetry (%) 92 Oxygen Delivery Method Room Air Intake Visit Reasons: cognitive impairment Intake Note: Patient is here to follow up on Cognitive Impairment. Bite Block Maker Required: No Jewelry Cutter: Present Allergies amoxicillin (AMOXICILLIN) Allergy (Intermediate, Verified 10/25/24 13:05) STOMACH ISSUES pollen extracts (POLLEN) Allergy (Mild, Verified 10/25/24 13:05) RUNNY NOSE, SNEEZING, ITCHY EYES Sulfa (Sulfonamide Antibiotics) Allergy (Verified 10/25/24 13:05) Unknown Tobacco use date assessed: 10/25/24 Fall risk assessment: No Falls in past year Last assessed Fall Risk: 10/25/24 Dental Screening Dental Screen Date: 07/19/24 Did you have a dental visit in the last 12 months?: No Did you have a dental problem in the last 6 months where you did not have access to dental care?: No Was dental information given to patient?: Patient declined [facility] Medical History Generalized anxiety disorder Nocturnal hypoxemia Acute rhinosinusitis Microscopic hematuria Renal cyst Osteoarthritis, knee COPD (chronic obstructive pulmonary disease) Acute and chronic respiratory failure with hypoxia COPD exacerbation LFT elevation Shortness of breath Rash Bilateral knee pain Hematuria Frequent falls Left-sided back pain Seizure disorder Allergic rhinitis Generalized abdominal pain Anemia Initial Medicare annual wellness visit Screening for osteoporosis Hypoxemia Anemia Syncope Nausea Chronic diarrhea Diarrhea Bile salt-induced diarrhea Cutaneous lupus erythematosus Osteoarthritis Hypertension Vitamin D deficiency COPD (chronic obstructive pulmonary disease) Ford's esophagus GERD (gastroesophageal reflux disease) Hypothyroid Surgical History History of cataract surgery History of rectal surgery History of ear surgery History of cholecystectomy History of eye surgery Family History Father Lymphoma Lung cancer Mother Hypertension Diabetes Sister Brain cancer Social History Household Members: Family Household Members Other:: son, his and their 2 kids Housing: House Do you presently have visiting nurse or other home services: Yes Alcohol intake: former Patient Tobacco Use Status: Former Tobacco user Tobacco use type: Cigarette e-Cigarette/Vaping Use: Never Used Second Hand Smoke Exposure: Yes Advance Directives Date on File: 08/04/23 service: No Current occupational status: retired Cognitive needs: Yes (Walker, Cane) Hearing needs: Yes (hearing aide) Vision needs: Yes (Glasses) Questionnaire PHQ-9 Over the last 2 weeks, how often have you been bothered by any of the following problems? 1. Little interest or pleasure in doing things: not at all 2. Feeling down, depressed, or hopeless: not at all 3. Trouble falling or staying asleep, or sleeping too much: not at all 4. Feeling tired or having little energy: more than half the days 5. Poor appetite or overeating: several days 6. Feeling bad about yourself - or that you are a failure or have let yourself or your family down: not at all 7. Trouble concentrating on things, such as reading the newspaper or watching television: several days 8. Moving or speaking so slowly that other people could have noticed. Or the opposite - being so fidgety or restless that you have been moving around a lot more than usual: not at all 9. Thoughts that you would be better off or of hurting yourself in some way: not at all Total score: 4 Depression Screening Interpretation: Positive Depression Screening Done: Yes Source: Developed by Drs. Juan R Peirre, Mary Kraft, Matti Flores and colleagues, with an educational benton from [employer]. Thrive Questionnaire Date Thrive assessed: 08/31/24 I am a: Parent/Caregiver What is your living situation today?: I have a steady place to live Within the past 12 months, did the food you bought not last and you didn't have the money to get more?: Never true Within the past 12 months, did you worry whether your food would run out before you got money to buy more?: Never true Do you have trouble paying for medicines?: No Do you have trouble getting transportation to medical appointments?: No Do you have trouble paying your heating and electricity bill?: No Do you have trouble taking care of your child, family member or friend?: No Do you have trouble with day-to-day activities such as bathing, preparing meals, shopping, managing finances, etc.?: No Are you currently unemployed and looking for a job?: No Are you interested in more education?: No Please select the resources that you would like help with: None Currently or been in a relationship where the following occur: No concerns reported THRIVE Score: 0 AUDIT C Alcohol Use Questionnaire (AUDIT-C) 1. How often do you have a drink containing alcohol?: Never 3. How often do you have six or more drinks on one occasion?: Never Total Score: 0 ANGELES-7 AMB Questionnaire ANGELES-7 Date ANGELES - 7 assessed: 04/12/24 Feeling nervous, anxious, or on edge: 0 = Not at all Not being able to stop or control worryin = Not at all Worrying too much about different things: 0 = Not at all Trouble relaxin = Not at all Being so restless that it is hard to sit still: 0 = Not at all Becoming easily annoyed or irritable: 0 = Not at all Feeling afraid as if something awful might happen: 0 = Not at all Total ANGELES-7 score (0-4 normal; 5-9 mild; 10-14 moderate; 15-21 severe): 0 Source: Developed by Drs. Juan R Pierre, Mary Kraft, Matti Flores and colleagues, with an educational benton from [employer]. ANGELES-7 Assessment Billing ANGELES-7 Assessment Tool: ANGELES-7 Assessment 55793 Physical exam (Primary Care) Vital Signs: Last Vital Signs Temp 97.1 F 10/25/24 13:06 Pulse 61 10/25/24 13:06 BP 124/72 10/25/24 13:06 Pulse Ox 92 10/25/24 13:06 Oxygen Delivery Method Room Air 10/25/24 13:06 BMI result Body Mass Index 21.3 Tobacco/Smoking Status: Tobacco use Status Tobacco use date assessed 10/25/24 10/25/24 13:08 Patient Tobacco Use Status Former Tobacco user 10/25/24 13:04 Tobacco use type Cigarette 10/25/24 13:04 e-Cigarette/Vaping Use Never Used 10/25/24 13:04 PHQ-9: PHQ-9 Score PHQ-9: Total score 4 10/25/24 13:12 Depression Screening Interpretation: Positive Thrive Assessment: Date of Thrive Assessment Date Thrive assessed 08/31/24 10/25/24 13:04 Currently or been in a relationship where the following occur: No concerns reported Const General: alert; No acute distress Eyes Conjunctivae: conjunctivae normal Resp Auscultation: clear to auscultation bilaterally Cardio Rate: regular rate Rhythm: regular rhythm GI Inspection: Yes normal to inspection Extrem General: Yes normal to inspection and No edema Coding Level of Care Code Est Pt Level 4 (77091) Complex EM visit Add On G2211 Diagnoses Acquired hypothyroidism E03.9 Hypothyroidism type: acquired GERD (gastroesophageal reflux disease) K21.9 COPD (chronic obstructive pulmonary disease) J44.9 Hypercholesterolemia E78.00 Cognitive impairment R41.89 Nocturnal hypoxemia G47.34 Additional Codes ANGELES-7 Assessment Billing - ANGELES-7 Assessment Tool: ANGELES-7 Assessment [id number] ([id number]) Assessment & Plan Assessment & Plan (1) Hypothyroid: Code(s): E03.9 - Hypothyroidism, unspecified Category: Medical Qualifiers: Hypothyroidism type: acquired Qualified Code(s): E03.9 - Hypothyroidism, unspecified Plan: Continue with thyroid medication (2) GERD (gastroesophageal reflux disease): Code(s): K21.9 - Gastro-esophageal reflux disease without esophagitis Category: Medical Plan: Avoid the foods that causes that usually spicy foods, tomato products, juices, coffee, soda and foods that your sensitive to. After eating do not lie down, allow 3-4 hours before in lie down. And keep the head of bed above 30 degrees to avoid the acid from going up. (3) COPD (chronic obstructive pulmonary disease): Comment: Clinically she does have chronic obstructive pulmonary disease. Moderately severe and well controlled at this time. She has had no acute exacerbation. She has stopped using Advair. Code(s): J44.9 - Chronic obstructive pulmonary disease, unspecified Category: Medical Plan: Patient follows up with [facility] has been stable (4) Hypercholesterolemia: Code(s): E78.00 - Pure hypercholesterolemia, unspecified Category: Medical Plan: Avoid fried foods, chicken skin, eggs, butter margarine, pastries and meat. Be it pork or beef they have a lot of cholesterol on simvastatin 20 mg at bedtime July 2024 last blood work (5) Cognitive impairment: Code(s): R41.89 - Other symptoms and signs involving cognitive functions and awareness Category: Medical Plan: Supportive treatment (6) Nocturnal hypoxemia: Comment: She is known to have nocturnal hypoxemia and also has intermittent exercise induced hypoxemia during the daytime. .Basically has remained stable Code(s): G47.34 - Idiopathic sleep related nonobstructive alveolar hypoventilation Category: Medical Plan: Continue with using oxygen at night and p.r.n. during daytime Plan History of Present Illness The patient is an 79-year-old female presenting for a wellness exam and follow- up on chronic conditions. The patient has a history of hypothyroidism, Ford's esophagus, dementia, osteoporosis, COPD, and hypercholesterolemia. She was last seen in April and is currently experiencing a cough, for which she follows up with a biomedical equipment specialist. In August, the patient experienced nausea, vomiting, and diarrhea, leading to a diagnosis of proctitis and physical deconditioning. She was transferred to a [facility] for further care. The patient was admitted on August 03 for a presyncopal episode associated with diarrhea and was treated with levofloxacin. She had a previous hospitalization for a urinary tract infection in July. Blood work from August 06 showed normal blood count, electrolytes, renal function, and liver function. Her last cholesterol test in July indicated an LDL of 80 mg/dL. Health Maintenance - Wellness exam conducted Social History - Functional status: Patient experiences difficulty maintaining hydration and medication adherence due to memory issues. Review of Systems - Respiratory: Reports cough - Gastrointestinal: Reports nausea, vomiting, and diarrhea in August - Neurological: Denies pain, swelling, or other neurological symptoms Physical Exam - Cardiovascular: Blood pressure is good Results - Labs: Normal blood count, electrolytes, renal function, and liver function as of August 06 - Labs: LDL cholesterol level of 80 mg/dL in July Plan The patient will continue to follow up with the biomedical equipment specialist for management of COPD and related symptoms such as cough. For dementia, the patient's medication regimen will be adjusted by discontinuing the morning dose of Memantine and continuing with a single dose at night to address excessive daytime sleepiness. The allergy medication Zyrtec will be replaced with Lisa to reduce sedation, and melatonin may be used at night to aid sleep. The patient is advised to maintain hydration to prevent dehydration and related complications, with reminders set up to encourage regular fluid intake. Patient was informed and verbally consented to the use of an ambient scribe for clinic note documentation during this visit. Discussion Notes During the visit, I discussed with the patient the importance of managing her COPD symptoms and the need for regular follow-up with her biomedical equipment specialist. We reviewed her current medication regimen for dementia and decided to adjust the timing of Memantine to reduce daytime sleepiness. I recommended switching from Zyrtec to Lisa to minimize sedation and suggested the use of melatonin at night to improve sleep quality. We also emphasized the importance of maintaining adequate hydration to prevent dehydration and its complications, with strategies to remind her to drink fluids regularly. Patient Instructions - Follow up with your biomedical equipment specialist as scheduled. - Take Memantine only at night to help with daytime sleepiness. - Switch from Zyrtec to Lisa for allergies. - Consider taking melatonin at night to aid sleep. - Ensure you drink enough fluids daily to stay hydrated. Medications: New fexofenadine (Lisa Allergy) 180 mg PO DAILY 30 tabs 3RF J30.9 - Allergic rhinitis, unspecified melatonin 10 mg PO BEDTIME PRN 30 caps 0RF sleep Changed From memantine 10 mg PO BID 180 tabs 2RF R41.89 - Other symptoms and signs involving cognitive functions and awareness To memantine 10 mg PO QPM 30 tabs 2RF R41.89 - Other symptoms and signs involving cognitive functions and awareness
[2024-10-25 13:06] VITALS: BP 124/72; PULSE 61; TEMP 36.2; O2SAT 92; BMI 21.3
== END 2024-10-25 13:25 | disposition home or self-care (01) ==
LOC: HO.HMCH 12:48
PROVIDERS: PCP Internal Medicine; Visit Provider Internal Medicine
DX: E03.9 Hypothyroidism, unspecified (principal); K21.9 Gastro-esophageal reflux disease without esophagitis; J44.9 Chronic obstructive pulmonary disease, unspecified; E78.00 Pure hypercholesterolemia, unspecified; R41.89 Other symptoms and signs involving cognitive functions and awareness; G47.34 Idiopathic sleep related nonobstructive alveolar hypoventilation

== ENCOUNTER → 2024-10-25 12:48 | Outpatient (BNVA) | payer MEDICARE, SELFPAY | PROVIDERS: PCP Internal Medicine; Visit Provider Internal Medicine | DX: E03.9 Hypothyroidism, unspecified (principal); J21.9 Acute bronchiolitis, unspecified; J44.9 Chronic obstructive pulmonary disease, unspecified; E78.00 Pure hypercholesterolemia, unspecified; R41.89 Other symptoms and signs involving cognitive functions and awareness; G47.34 Idiopathic sleep related nonobstructive alveolar hypoventilation | CPT/HCPCS: 96127; 99212 ==

== ENCOUNTER 2024-12-25 13:13 | Inpatient (IN) | payer MEDICARE, SELFPAY ==
[2024-12-25] VITALS (11 sets, daily range): BP systolic 132–206; BP diastolic 59–100; PULSE 56–89; RESP 12–19; TEMP 36.4–36.7; O2SAT 94–100; BMI 22.1
--- NOTE | 2024-12-25 | ECG_ITS ---
Test Reason : SYNCOPE Blood Pressure : */* mmHG Vent. Rate : 56 BPM Atrial Rate : 56 BPM P-R Int : 158 ms QRS Dur : 82 ms QT Int : 432 ms P-R-T Axes : 80 69 83 degrees QTcB Int : 416 ms Sinus bradycardia Otherwise normal ECG When compared with ECG of 06-Aug-2024 19:40, Premature supraventricular complexes are no longer Present Nonspecific T wave abnormality no longer evident in Anterolateral leads Referred By: Josef Smith Electronically Signed By: LUZMA HARTMAN
--- NOTE | ~2024-12-25 | XR_ITS ---
CLINICAL HISTORY: constipation 1 view abdomen Comparison: CT - CT ABDOMEN PELVIS W IV CON - 08/02/24 21:[address]/SR - CT ABDOMEN PELVIS W IV CON - 08/02/24 21:07 EDT Findings: Nonspecific air-filled loops of normally distended small bowel. Equivocal mural thickening proximal jejunum. Normal stool quantity. No pneumoperitoneum or pneumatosis. No urinary tract calculi are present. Renal and psoas margins are normal. No organomegaly. No acute fracture. Impression: 1. No heavy stool burden. 2. Equivocal mural thickening proximal small bowel. This document has been electronically signed by: Mark Clark MD on 12/25/2024 15:59:51
--- NOTE | ~2024-12-25 | CT_ITS ---
CLINICAL HISTORY: drop in h h, constipation ?colitis on kub CT abdomen and pelvis with contrast Comparison: 08/02/2024 09:07 PM EDT Findings: Lung bases are clear. No acute bony abnormalities. Liver and spleen within normal limits. Bilateral adrenal glands unremarkable. Cholecystectomy with biliary ductal dilation. Dilation is unchanged from prior study. Pancreatic duct dilation no longer identified. No acute abnormality noted in the pancreas. No significant focal renal abnormalities. Renal cysts, no stones or hydronephrosis. Abdominal aorta is normal in caliber. No free fluid or adenopathy in the pelvis. No diverticulitis. Appendix not identified. Mild perirectal stranding and wall thickening. Findings likely represent stercoral colitis. Large amount of stool in the rectal vault. Uterus normal size. No adnexal abnormality. Impression: Probable acute stercoral colitis This document has been electronically signed by: Yfn Andrade MD on 12/25/2024 19:28:06
--- NOTE | 2024-12-25 13:18 | ED.GENADULT ---
HPI - General Adult General Chief complaint: Syncope Stated complaint: WEAK,LIGHTHEADED ON TOILET,HOME O2 ER EMS Time Seen by Provider: 12/25/24 13:17 Source: patient and EMS Mode of arrival: EMS Limitations: no limitations History of Present Illness ED Provider: SHAJI CORCORAN PA-C HPI narrative: 79 year old F with pmhx significant for epilepsy, HLD, HTN, chronic hypoxemic respiratory failure secondary to COPD on 2 L supplemental O2, IBS, mood disorder, OA, cognitive impairment, GERD, Ford's esophagus, hypothyroidism presents to the ED today via EMS from home after near-syncopal episode. Patient reports constipation over the last few days. She is not sure if she is on a bowel regimen currently as her [id number] typically administered her medications. She states that she was on the toilet this morning for approximately 1 hour, straining significantly in an attempt to pass a bowel movement. She reports passing a small amount of hard stool. While straining, reports she felt dizzy as if she were going to pass out. She was able to stand up from the toilet and ambulate back to her bedroom where she called for her [id number] who came in. She did not syncopize. She did not fall to the ground. Reports dizziness had completely resolved on returning to her bedroom. She currently lives with her son and [id number]. Reports completing home physical therapy approximately 2 weeks ago. Admits to feeling generally fatigued and weak. She does not feel this is significantly changes since she completed PT. She does not feel as though she would benefit from more PT. She admits to history of seizures however is compliant with her medications. She does not feel as though this felt similar to prior seizures. Denies any complaints at present. Denies headache, dizziness, nausea or vomiting, chest pain, shortness of breath, numbness/tingling in the extremities, urinary symptoms. Denies abdominal pain, melena, BRPBR, diarrhea. Related Data Home Medications ?Medication ?Instructions ?Recorded ?Confirmed diphenoxylate-atropine 2.5 1 - 2 tab PO BID PRN Diarrhea 07/07/24 12/26/24 mg-0.025 mg tablet nystatin 100,000 unit/gram topical 1 appl topical BID 08/03/24 12/26/24 powder (Klayesta) omeprazole 20 mg capsule,delayed 20 mg PO DAILY@0630 08/03/24 12/26/24 release amlodipine 5 mg tablet 5 mg PO DAILY 12/26/24 12/26/24 levetiracetam 500 mg tablet 500 mg PO Q12H 12/26/24 12/26/24 melatonin 5 mg capsule 5 mg PO BEDTIME PRN Sleep 12/26/24 12/26/24 Previous Rx's ?Medication ?Instructions ?Recorded blood pressure monitor (Blood #1 ea 05/06/22 Pressure Kit) inhalational spacing device #1 ea 08/18/23 (POCKET CHAMBER spacer) simvastatin 20 mg tablet 20 mg PO BEDTIME 90 days #90 tabs 03/19/24 cetirizine 10 mg capsule 10 mg PO BEDTIME Allergy Symptoms 07/26/24 #90 caps sertraline 50 mg tablet 50 mg PO DAILY #90 tabs 08/06/24 levothyroxine 112 mcg tablet 112 mcg PO DAILY #90 tabs 09/01/24 memantine 10 mg tablet 10 mg PO QPM #30 tabs 10/25/24 Allergies Allergy/AdvReac Type Severity Reaction Status Date / Time amoxicillin (AMOXICILLIN) Allergy Intermediate STOMACH Verified 12/25/24 13:34 ISSUES pollen extracts (POLLEN) Allergy Mild RUNNY Verified 12/25/24 13:34 NOSE, SNEEZING, ITCHY EYES Sulfa (Sulfonamide Allergy Unknown Verified 12/25/24 13:34 Antibiotics) Review of Systems Review of Systems: Yes all other systems are reviewed and are negative PMFSH Past Medical History Attestation statement: The following information was validated with the patient. Source: old records reviewed and nursing notes reviewed Medical History Generalized anxiety disorder Nocturnal hypoxemia Acute rhinosinusitis Microscopic hematuria Renal cyst Osteoarthritis, knee COPD (chronic obstructive pulmonary disease) Acute and chronic respiratory failure with hypoxia COPD exacerbation LFT elevation Shortness of breath Rash Bilateral knee pain Hematuria Frequent falls Left-sided back pain Seizure disorder Allergic rhinitis Generalized abdominal pain Anemia Initial Medicare annual wellness visit Screening for osteoporosis Hypoxemia Anemia Syncope Nausea Chronic diarrhea Diarrhea Bile salt-induced diarrhea Cutaneous lupus erythematosus Osteoarthritis Hypertension Vitamin D deficiency COPD (chronic obstructive pulmonary disease) Ford's esophagus GERD (gastroesophageal reflux disease) Hypothyroid Surgical History History of cataract surgery History of rectal surgery History of ear surgery History of cholecystectomy History of eye surgery Family History Family History Father Lymphoma Lung cancer Mother Hypertension Diabetes Sister Brain cancer Social History Social History Household Members: Family Household Members Other:: son, his and their 2 kids Housing: House Do you presently have visiting nurse or other home services: Yes Alcohol intake: former Patient Tobacco Use Status: Former Tobacco user Tobacco use type: Cigarette e-Cigarette/Vaping Use: Never Used Second Hand Smoke Exposure: Yes Advance Directives Date on File: 08/04/23 service: No Current occupational status: retired Cognitive needs: Yes (Walker, Cane) Hearing needs: Yes (hearing aide) Vision needs: Yes (Glasses) Physical Exam ED Vital Signs: Vital Signs - 24 hr 12/25/24 13:30 12/25/24 15:18 12/25/24 15:18 Temperature 97.5 F Pulse Rate 56 60 Respiratory Rate 14 14 Blood Pressure 180/61 H 188/77 H Pulse Oximetry 97 100 100 Oxygen Delivery Method Room Air Nasal Cannula Nasal Cannula Oxygen Flow Rate 2 12/25/24 15:54 12/25/24 15:55 12/25/24 16:04 Temperature Pulse Rate 61 59 Respiratory Rate 14 16 Blood Pressure 206/74 H 206/74 H 200/59 H Pulse Oximetry 99 100 Oxygen Delivery Method Nasal Cannula Room Air Oxygen Flow Rate 2 12/25/24 16:33 12/25/24 16:34 12/25/24 16:36 Temperature Pulse Rate 61 63 89 Respiratory Rate Blood Pressure 193/60 H 186/63 H 179/69 H Pulse Oximetry Oxygen Delivery Method Oxygen Flow Rate 12/25/24 17:59 12/25/24 18:30 Temperature Pulse Rate 74 78 Respiratory Rate 19 18 Blood Pressure 140/100 H 172/72 H Pulse Oximetry 100 98 Oxygen Delivery Method Nasal Cannula Nasal Cannula Oxygen Flow Rate 2 2 BMI result Body Mass Index 22.1 hypertensive, vitals are otherwise wnl General: thin appearing, in NAD. Skin: Warm, dry, intact. No rashes or lesions. Head: Normocephalic, atraumatic. EENT: Hearing is intact b/l. Conjunctiva clear. Sclera is anicteric. PERRLA. EOM intact. Moist mucous membranes.? Cardiac: Chest wall symmetric. RRR Lungs: Normal respiratory effort without accessory muscle use. CTA bilaterally. Abdomen: Soft, non-tender, non-distended. No rebound tenderness or guarding. Positive BS x4. Rectal exam performed with my PA student marie in room to [employer]. Normal rectal sphincter tone. No external masses or lesions. large amount of palpable soft stool in rectal vault. Stool is dark in appearance. OBS positive. Back: No midline spinous or paraspinal tenderness. No step off deformity. Ext: Upper and lower extremities atraumatic, without tenderness, deformity, swelling or erythema Neuro: AOx3. Normal speech. Ambulating with steady gait Course Course Course Narrative: CBC without leukocytosis. H and H is down trending, 9.8/32 today. Hemoglobin lives around 12-13. Chemistry without acute electrolyte abnormality requiring intervention. Renal function around baseline. Liver function at baseline. Troponin WNL. UA pending. KUB showing nonspecific air filled loops of normally distended small bowel, equivocal and mural thickening proximal jejunum. Normal stool quantity. > rectal exam performed by myself with assistence from my PA student Marie after obtaining consent from patient - large stool ball noted within rectal vault. she was digitally disimpacted, patient tolerated well. Stool appears dark in color. No sandra blood. OBS positive. > CT abdomen/pelvis demonstrates findings concerning for stercoral colitis. > given drop in H&H and positive OBS, spoke with hospitalist Dr. Sandoval who agrees with admission for further workup of GI bleed consistent with possible endoscopy/colonoscopy. > dr. sandoval to place admission orders. Medications Administered Generic Name Dose Route Start Last Admin Trade Name Freq PRN Reason Stop Dose Admin Acetaminophen 650 mg 12/25/24 19:36 12/26/24 17:28 Acetaminophen 325 Mg Tablet PO 650 mg Q6H PRN Administration Pain, Mild 1-3,fever,headache Atorvastatin Calcium 10 mg 12/26/24 21:00 12/26/24 19:48 Atorvastatin Calcium 10 Mg Tablet PO 10 mg BEDTIME BRENT Administration Hydralazine HCl 5 mg 12/26/24 17:13 12/26/24 17:23 Hydralazine Hcl 20 Mg/Ml Vial IVPUSH 5 mg Q6H PRN Administration hypertension Protocol Levetiracetam 500 mg 12/26/24 12:00 12/27/24 08:52 Levetiracetam 500 Mg Tablet PO 500 mg BID BRENT Administration Levothyroxine Sodium 112 mcg 12/27/24 06:00 12/27/24 05:48 Levothyroxine Sodium 112 Mcg Tablet PO 112 mcg DAILY@0600 BRENT Administration Loratadine 10 mg 12/26/24 21:00 12/26/24 19:48 Loratadine 10 Mg Tablet PO 10 mg BEDTIME BRENT Administration Memantine 10 mg 12/26/24 21:00 12/26/24 19:48 Memantine Hcl 10 Mg Tablet PO 10 mg BEDTIME BRENT Administration Nystatin 1 appl 12/26/24 21:00 12/27/24 08:53 Nystatin Powder 15 Gm Bottle TOPICAL 1 appl BID BRENT Administration Protocol Pantoprazole Sodium 40 mg 12/26/24 06:30 12/27/24 05:48 Pantoprazole Sodium 40 Mg/10 Ml Vial IVPUSH 40 mg BID@0630,1630 BRENT Administration Polyethylene Glycol 17 gm 12/26/24 12:45 12/27/24 08:52 Polyethylene Glycol 3350 17 Gm Powd.Pack PO 17 gm TID BRENT Administration Senna/Docusate Sodium 2 tab 12/26/24 21:00 12/26/24 19:48 Sennosides/Docusate Sodium Tablet PO 2 tab BEDTIME BRENT Administration Sertraline HCl 50 mg 12/26/24 11:45 12/27/24 08:52 Sertraline Hcl 50 Mg Tablet PO 50 mg DAILY BRENT Administration Sodium Chloride 3 ml 12/26/24 00:00 12/27/24 08:54 0.9 % Sodium Chloride Flush 3 Ml Syringe IVFLUSH 3 ml QSHIFT BRENT Administration Discontinued Medications Generic Name Dose Route Start Last Admin Trade Name Freq PRN Reason Stop Dose Admin Amlodipine Besylate 10 mg 12/25/24 15:49 12/25/24 15:55 Amlodipine Besylate 10 Mg Tablet PO 12/25/24 15:50 10 mg ONCE ONE Administration Protocol Hydralazine HCl 10 mg 12/26/24 07:56 12/26/24 08:16 Hydralazine Hcl 20 Mg/Ml Vial IVPUSH 12/26/24 07:57 10 mg ONCE ONE Administration Protocol Lactated Ringer's 1,000 mls @ 100 mls/hr 12/25/24 19:45 12/26/24 07:38 Lr IVCONT 12/26/24 05:44 Infused .Q10H BRENT Infusion Influenza Virus Vaccine 0.5 ml 12/26/24 10:00 12/26/24 11:40 Flu Vacc [id number](6mo Up)/Pf 0.5 Ml Syringe IM 12/26/24 10:01 0.5 ml .ONCE ONE Administration Iohexol 100 ml 12/25/24 17:55 12/25/24 17:56 Iohexol 350 Mg/Ml 100 Ml Infus..Btl IV 12/25/24 17:56 85 ml ONCE ONE Administration Pantoprazole Sodium 80 mg 12/25/24 19:39 12/25/24 19:49 Pantoprazole Sodium 40 Mg/10 Ml Vial IVPUSH 12/25/24 19:40 80 mg ONCE STA Administration Polyethylene Glycol 17 gm 12/26/24 09:00 12/26/24 07:39 Polyethylene Glycol 3350 17 Gm Powd.Pack PO Not Given DAILY BRENT Medical Decision Making Medical Decision Making MDM Narrative: 79 year old F with pmhx significant for epilepsy, HLD, HTN, chronic hypoxemic respiratory failure secondary to COPD on 2 L supplemental O2, IBS, mood disorder, OA, cognitive impairment, GERD, Ford's esophagus, hypothyroidism presents to the ED today via EMS from home after near-syncopal episode. She that has hypertensive, vitals otherwise WNL. She is thin appearing, pale. Abdomen is soft, nondistended, nontender to palpation without rebound or guarding. Active bowel sounds x4. MARYLOU reveals Differential diagnosis includes anemia, electrolyte abnormality, dehydration, orthostatic hypotension, vasovagal syncope, near syncope, constipation, bowel obstruction Plan for labs, EKG, KUB, re-evaluation Differential Diagnosis Differential Diagnoses: The differential diagnosis associated with the presentation includes as above. Admission/Observation Consideration of admission/observation: Escalation of care including admission/observation considered Lab Data [facility] Lab Attestation statement: I reviewed the patient's lab results. as above. 12/27/24 05:48 12/27/24 05:48 Labs: Lab Results 12/25/24 12/25/24 Range/Units 14:34 18:29 WBC 6.8 (4.8-10.8) X10*3/uL RBC 4.09 L (4.20-5.50) X10*6/uL Hgb 9.8 L (12.0-16.0) g/dl Hct 32.0 L (37.0-47.0) % MCV 78.2 L (80.0-98.0) fL MCH 24.0 L (27.0-33.0) pg MCHC 30.6 L (31.0-35.0) g/dl RDW 15.1 (11.0-16.0) % Plt Count 259 D (160-400) X10*3/uL MPV 12.3 (9.4-12.3) fL Immature Gran % (Auto) 0.1 (0.0-0.4) % Neut % (Auto) 85.7 H (45-73) % Lymph % (Auto) 8.5 L (20-40) % [place] % (Auto) 5.3 (2-11) % Eos % (Auto) 0.1 (0-4) % Baso % (Auto) 0.3 (0-2) % Lymph # (Auto) 0.6 L (1.2-4.9) X10*3/uL [place] # (Auto) 0.4 (0.1-1.2) X10*3/uL Eos # (Auto) 0.0 (0.0-0.4) X10*3/uL Baso # (Auto) 0.0 (0.0-0.2) X10*3/uL Abs Immat Gran (auto) 0.01 (0.00-0.03) X10*3/uL Absolute Neuts (auto) 5.8 (2.0-8.3) x10*3/uL Absolute Nucleated RBC 0.000 (0.0-0.012) X10*3/uL Nucleated RBC % (auto) 0.0 (0.0-0.2) /100WBC Sodium 145 (135-145) mmol/L Potassium 4.6 (3.3-5.1) mmol/L Chloride 111 H (96-108) mmol/L Carbon Dioxide 28 (22-29) mmol/L Anion Gap 11 L (12-20) BUN 19 H (9-16) mg/dL Creatinine 0.82 (0.5-1.4) mg/dL Estim Creat Clear Calc 41.2 Estimated GFR > 60 Random Glucose 101 (60-115) mg/dL Calcium 9.3 (8.4-10.2) mg/dL Magnesium 1.9 (1.6-2.6) mg/dL Total Bilirubin 0.3 (0.0-1.0) mg/dL AST 16 (5-31) U/L ALT 9 (0-31) U/L Alkaline Phosphatase 74 (39-117) U/L Troponin I High Sens 4.7 (<3.5-17.0) ng/L Total Protein 7.0 (6.5-8.0) g/dL Albumin 3.8 (3.5-5.0) g/dL TSH 0.17 L (0.32-4.0) uIU/mL Stool Occult Blood POSITIVE (NEGATIVE) Independent Interpretation I performed an independent interpretation of an: EKG, Plain X-Ray and CT Scan Interpretation: EKG showing sinus bradycardia with a rate of 56 beats per minute, no acute ischemic changes or ST elevations KUB without bowel obstruction CT a/p without bowel obstruction Radiology Impression Discussion of test interpretation with radiology: I have reviewed the radiologist's reading. Radiologist Impression: Reason for Exam: constipation CLINICAL HISTORY: constipation 1 view abdomen Comparison: CT - CT ABDOMEN PELVIS W IV CON - 08/02/24 21:[address]/SR - CT ABDOMEN PELVIS W IV CON - 08/02/24 21:07 EDT Findings: Nonspecific air-filled loops of normally distended small bowel. Equivocal mural thickening proximal jejunum. Normal stool quantity. No pneumoperitoneum or pneumatosis. No urinary tract calculi are present. Renal and psoas margins are normal. No organomegaly. No acute fracture. Impression: 1. No heavy stool burden. 2. Equivocal mural thickening proximal small bowel. This document has been electronically signed by: Mark Clark MD on 12/25/2024 15:59:51 Independent Historian Clinical information obtained from an independent historian. History obtained from or confirmed by: EMS External Record Review External record reviewed: Inpatient record, Office record and Outpatient record Social Determinants Patient?s care significantly limited by Social Determinants of Health including: Other Social Determinant of Health Critical Care Time Critical Care Time Critical Care Time: Yes Total Critical Care Time: 39 Attestation: Critical care time in the amount of 39 minutes has been provided to the patient in terms of direct patient care, frequent reevaluation, consultation with hospitalist, review and interpretation of medical data and results, and management of potentially life-threatening conditions. This is all outside of any medical procedures. Discharge Plan Discharge Clinical Impression: Near syncope, Anemia, GI bleed Patient Disposition: Admitted As Inpatient Interventions: Admission Worksheet (ED) Last Done: 12/26/24 07:33 Discharge Date/Time: 12/26/24 09:23
[2024-12-25 14:39] LABS: MANUAL DIFF FLAG NO
[2024-12-25 14:40] LABS: Hematocrit 32.0 % (37.0-47.0); Hemoglobin 9.8 g/dl (12.0-16.0); Imm Gran Abs Auto 0.01 X10*3/uL (0.00-0.03); Imm Gran Pct Auto 0.1 % (0.0-0.4); Lymphocytes Absolute Auto 0.6 X10*3/uL (1.2-4.9); Mean Corpuscular HGB Conc 30.6 g/dl (31.0-35.0); Mean Corpuscular Hemoglobin 24.0 pg (27.0-33.0); Mean Corpuscular Volume 78.2 fL (80.0-98.0); NRBC Abs Auto 0.000 X10*3/uL (0.0-0.012); NRBC Pct Auto 0.0 /100WBC (0.0-0.2); Platelet Count 259 X10*3/uL (160-400); Red Blood Count 4.09 X10*6/uL (4.20-5.50); White Blood Count 6.8 X10*3/uL (4.8-10.8)
[2024-12-25 14:58] LABS: Alanine Aminotransferase 9 U/L (0-31); Albumin Level 3.8 g/dL (3.5-5.0); Alkaline Phosphatase 74 U/L (39-117); Anion Gap 11 (12-20); Aspartate Amino Transferase 16 U/L (5-31); Blood Urea Nitrogen 19 mg/dL (9-16); Calcium 9.3 mg/dL (8.4-10.2); Carbon Dioxide 28 mmol/L (22-29); Chloride 111 mmol/L (96-108); Creatinine Clr Calc Pharmacy 41.2; Estimated Glomerular Filt Rate > 60; Magnesium 1.9 mg/dL (1.6-2.6); Potassium 4.6 mmol/L (3.3-5.1); Sodium 145 mmol/L (135-145); Total Protein 7.0 g/dL (6.5-8.0)
[2024-12-25 15:05] LABS: Troponin-I High Sensitivity 4.7 ng/L (<3.5-17.0)
--- NOTE | 2024-12-25 15:51 | PC.NURSE ---
Pt a/ox4. SBP>200. Pt states she did not take any of her meds today. Provider notified.
[2024-12-25] MEDS: iohexoL 350 MG/ML 100 ML INFUS..BTL IV (17:56)
[2024-12-25 18:37] LABS: OBS Int Ctl Valid YES
[2024-12-25 18:38] LABS: OBS1 POSITIVE (NEGATIVE)
[2024-12-25] MEDS: Lactated Ringers 1,000 ML 100 ML IVCONT (19:45)
--- NOTE | 2024-12-25 20:08 | P.HPHOSP_ITS ---
History of Present Illness Date of Service: 12/25/24 Attending physician on admission: Dee Zhou Chief Complaint: Constipation Pretty Galindo is a 79 years old woman with a past medical history significant for GERD, Ford's esophagus, colonic polyps, AVM, hypothyroidism, COPD on home oxygen 2 L/min via nasal cannula, essential hypertension and depression who presents to the emergency department complaining of constipation. She denied any associated abdominal pain, nausea or vomiting. She does complain of shortness on breath that she attributes to her COPD. She denied any chest pain, palpitations or dizziness. She also denied black stools. In the ED, she was found to have stable vital signs. Blood workup was remarkable for hemoglobin 9.8 (it was 12.0 June of this year). MCV is 70.3 and platelets 259. There is no leukocytosis. There are no significant electrolyte imbalances. BUN is 19 and creatinine 0.82. LFTs are normal. Troponin is 4.7 and albumin 3.8. Stool occult blood is positive. ED tx: Amlodipine 10 mg p.o. Review of Systems 2 Review of Systems: All 12 systems were reviewed and normal except as noted in HPI. [facility] Medical History Generalized anxiety disorder Nocturnal hypoxemia Acute rhinosinusitis Microscopic hematuria Renal cyst Osteoarthritis, knee COPD (chronic obstructive pulmonary disease) Acute and chronic respiratory failure with hypoxia COPD exacerbation LFT elevation Shortness of breath Rash Bilateral knee pain Hematuria Frequent falls Left-sided back pain Seizure disorder Allergic rhinitis Generalized abdominal pain Anemia Initial Medicare annual wellness visit Screening for osteoporosis Hypoxemia Anemia Syncope Nausea Chronic diarrhea Diarrhea Bile salt-induced diarrhea Cutaneous lupus erythematosus Osteoarthritis Hypertension Vitamin D deficiency COPD (chronic obstructive pulmonary disease) Ford's esophagus GERD (gastroesophageal reflux disease) Hypothyroid Family History Father Lymphoma Lung cancer Mother Hypertension Diabetes Sister Brain cancer Surgical History History of cataract surgery History of rectal surgery History of ear surgery History of cholecystectomy History of eye surgery Social History Household Members: Family Household Members Other:: son, his and their 2 kids Housing: House Do you presently have visiting nurse or other home services: Yes Alcohol intake: former Patient Tobacco Use Status: Former Tobacco user Tobacco use type: Cigarette e-Cigarette/Vaping Use: Never Used Second Hand Smoke Exposure: Yes Advance Directives: Yes Advance Directives on File: Yes Advance Directives Date on File: 08/04/23 Nutrition Risks: No Nutritional Risk service: No Current occupational status: retired Cognitive needs: Yes (Walker, Cane) Hearing needs: Yes (hearing aide) Vision needs: Yes (Glasses) Meds Allergies Allergy/AdvReac Type Severity Reaction Status Date / Time amoxicillin (AMOXICILLIN) Allergy Intermediate STOMACH Verified 12/25/24 13:34 ISSUES pollen extracts (POLLEN) Allergy Mild RUNNY Verified 12/25/24 13:34 NOSE, SNEEZING, ITCHY EYES Sulfa (Sulfonamide Allergy Unknown Verified 12/25/24 13:34 Antibiotics) Active Medications: Current Medications Acetaminophen (Acetaminophen 325 Mg Tablet) 650 mg PO Q6H PRN PRN Reason: Pain, Mild 1-3,fever,headache Calcium Carbonate (Calcium Carbonate 750 Mg Tab.Chew) 750 mg PO Q4H PRN PRN Reason: Heartburn Lactated Ringer's (Lr) 1,000 mls @ 100 mls/hr IVCONT .Q10H [facility] Stop: 12/26/24 05:44 Last Admin: 12/25/24 19:45 Dose: 100 mls/hr Magnesium Hydroxide (Milk Of Magnesia 30 Ml Oral.Susp) 30 ml PO DAILY PRN PRN Reason: Constipation Melatonin (Melatonin 3 Mg Tablet) 6 mg PO BEDTIME PRN PRN Reason: Insomnia Sodium Chloride (0.9 % Sodium Chloride Flush 3 Ml Syringe) 3 ml IVFLUSH QSHIFT [facility] Home Medications ?Medication ?Instructions ?Recorded ?Confirmed ?Last Taken ?Type diphenoxylate-atropine 2.5 1 - 2 tab PO BID PRN Diarrh ea 07/07/24 09/13/24 08/02/24 History mg-0.025 mg tablet amlodipine 10 mg tablet 10 mg PO DAILY 08/03/24 06/12/3008/02/24 History nystatin 100,000 unit/gram topical 1 appl topical BID 08/03/24 09/13/24 08/02/24 History powder (Klayesta) omeprazole 20 mg capsule,delayed 20 mg PO DAILY@0630 0 08/03/24 09/13/24 08/02/24 History release Physical Exam 2 Vital Signs and Narrative: Vital Signs: Last Vital Signs Temp 98.1 F 12/25/24 19:37 Pulse 60 12/25/24 19:37 Resp 12 12/25/24 19:37 BP 132/82 12/25/24 19:37 Pulse Ox 98 12/25/24 19:37 O2 Del Method Room Air 12/25/24 19:37 O2 Flow Rate 2 12/25/24 18:30 Oxygen Flow Rate 2 12/25/24 15:18 BMI result Body Mass Index 22.1 Constitutional - Awake and Alert, No apparent distress HEENT - PERRLA, EOMI Heart - S1S2, RRR, No edema Lungs - Normal lung expansion, Normal respiratory effort, No respiratory distress, CTA bilaterally Abdomen - NT / ND; +BS; No rebound or guarding Extremities - no calf tenderness bilaterally, no swelling Musculoskeletal - generalized atrophy Skin - Warm/Dry Neurological - Alert & oriented x3. , moving all extremities spontaneously. Normal speech. Psychological - Appropriate affect Results Labs 12/25/24 14:34 12/25/24 14:34 Labs: Laboratory Results - last 24 hr 12/25/24 12/25/24 14:34 18:29 MCV 78.2 L MCH 24.0 L MCHC 30.6 L RDW 15.1 Plt Count 259 D MPV 12.3 Immature Gran % (Auto) 0.1 Neut % (Auto) 85.7 H Lymph % (Auto) 8.5 L [place] % (Auto) 5.3 Eos % (Auto) 0.1 Baso % (Auto) 0.3 Lymph # (Auto) 0.6 L [place] # (Auto) 0.4 Eos # (Auto) 0.0 Baso # (Auto) 0.0 Abs Immat Gran (auto) 0.01 Absolute Neuts (auto) 5.8 Absolute Nucleated RBC 0.000 Nucleated RBC % (auto) 0.0 Anion Gap 11 L Estim Creat Clear Calc 41.2 Estimated GFR > 60 Random Glucose 101 Calcium 9.3 Magnesium 1.9 Total Bilirubin 0.3 AST 16 ALT 9 Alkaline Phosphatase 74 Troponin I High Sens 4.7 Total Protein 7.0 Albumin 3.8 Stool Occult Blood POSITIVE Assessment and Plan (1) Acute blood loss anemia: Status: Acute (2) Constipation: Qualifiers: Constipation type: unspecified constipation type Qualified Code(s): K 59.00 - Constipation, unspecified Status: Acute Clarissa Galindo is a 79 y/o woman with a PMHx significant for GERD, Ford's esophagus, colonic polyps and AVM who presents with: Acute blood loss anemia 12.0 --> 9.8 + positive occult blood test/GI bleeding. Not on anticoagulants. Not taking bjgi-tsy-ivhkrho meds. NPO after midnight. Protonix 80 mg IV stat then 40 mg IV b.i.d.. Continue to monitor H&H. Transfuse if patient becomes hemodynamically unstable or H&H less than 7. GI consult. Constipation associated with stercoral colitis. Resolved after digital disimpaction by ED. No abdominal pain. Supportive therapy with laxative/stool softness when able. Chronic hypoxic respiratory failure/COPD. No acute symptoms. Continue home O2. Continue home meds. Bronchodilator therapy as needed. Hypothyroidism. Check TSH. Continue levothyroxine. Seizure disorder. On Keppra? Essential hypertension. Continue amlodipine, Hyperlipidemia. Continue statin. Depression. Continue sertraline. Code status: Full. DVT prophylaxis: SCDs. No anticoagulation due to possible GI bleeding. Patient will need hospitalization for at least 2 midnights for worsening anemia concerning for GI bleeding management with PRBC transfusions as needed and evaluation by subspecialty. Quality Stroke Does the patient have a stroke diagnosis?: No VTE Prior VTE?: No VTE Risk Level:: Medical - moderate - high VTE Device Contraindication: N/A - Device Ordered VTE Drug Contraindication: N/A - Med Ordered
[2024-12-25 21:08] LABS: Thyroid Stimulating Hormone 0.17 uIU/mL (0.32-4.0)
[2024-12-25 21:10] LABS: Hematocrit 30.1 % (37.0-47.0); Hemoglobin 9.4 g/dl (12.0-16.0)
[2024-12-25 21:17] LABS: INTERNATIONAL NORM RATIO 1.0 (0.9-1.1); Prothrombin Time 12.0 SEC (10.9-12.4)
--- NOTE | 2024-12-25 22:28 | PC.NURSE ---
Pt incontinent of urine. Complete bed change and pericare provided. Purewick placed. Pt reports no pain. Pending bed assignment. Pt aware of plan of care.
--- NOTE | 2024-12-25 23:53 | PC.NURSE ---
Pts son, Alexander, called for an update. Update provided. Alexander can be reached [phone] or pts daughter in law, Sarah, at [phone].
[2024-12-26] VITALS (9 sets, daily range): BP systolic 113–194; BP diastolic 56–75; PULSE 63–78; RESP 12–17; TEMP 36.3–36.6; O2SAT 97–100; BMI 21.7
[2024-12-26 04:29] LABS: Hematocrit 30.6 % (37.0-47.0); Hemoglobin 9.6 g/dl (12.0-16.0); Mean Corpuscular HGB Conc 31.4 g/dl (31.0-35.0); Mean Corpuscular Hemoglobin 23.9 pg (27.0-33.0); Mean Corpuscular Volume 76.3 fL (80.0-98.0); NRBC Abs Auto 0.000 X10*3/uL (0.0-0.012); NRBC Pct Auto 0.0 /100WBC (0.0-0.2); Platelet Count 240 X10*3/uL (160-400); Red Blood Count 4.01 X10*6/uL (4.20-5.50); White Blood Count 6.1 X10*3/uL (4.8-10.8)
[2024-12-26 04:41] LABS: INTERNATIONAL NORM RATIO 1.0 (0.9-1.1); Prothrombin Time 11.7 SEC (10.9-12.4)
[2024-12-26 04:48] LABS: Anion Gap 9 (12-20); Blood Urea Nitrogen 14 mg/dL (9-16); Calcium 9.0 mg/dL (8.4-10.2); Carbon Dioxide 29 mmol/L (22-29); Chloride 107 mmol/L (96-108); Creatinine Clr Calc Pharmacy 52.0; Estimated Glomerular Filt Rate > 60; Potassium 4.0 mmol/L (3.3-5.1); Sodium 141 mmol/L (135-145)
[2024-12-26] MEDS: 0.9 % Sodium Chloride Flush 3 ML SYRINGE IVFLUSH ×2 (07:36→19:48)
--- NOTE | 2024-12-26 07:41 | HO.NURTONUR ---
ALert and oriented. Reports no pain this morning. Remains NPO. Hypertensive this morning at 194/75. Resting comfortably.
--- NOTE | 2024-12-26 08:42 | MHC.EDTECH ---
Patient cleaned and repositioned
--- NOTE | 2024-12-26 09:11 | P.CNGI_ITS ---
History of Present Illness Data of Consult Service Date: 12/26/24 Requesting physician: Dee Zhou Primary Care Provider: Shane Nelson MD HPI Reason for consult: Worsening anemia, occult blood test positive 79 YF with GERD, Ford's esophagus, colonic polyps, AVM, hypothyroidism, COPD on home oxygen 2 L/min via nasal cannula, essential hypertension and depression seen at [facility] on 12/25/24 with constipation. Pt states she is not doing too well and having some nausea. She notes black stool for the past 2 weeks Pt complains of bad constipation and stools are hard like a rock and takes a stool softener. She reports having a BM today - not black per nursing staff. Pt denied associated heartburn, dysphagia, abdominal pain, nausea or vomiting, chest pain, palpitations or dizziness or black stools. She does complain of shortness on breath that she attributes to her COPD. Pt denies taking aspirin, NSAIDS or blood thinners. Pt denies smoking or ETOH abuse. 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 She lives at home with her son, PREETHI and 2 GK. In the ED, she was found to have stable vital signs. Labs showed hemoglobin 9.8 (it was 12.0 June of this year). MCV is 70.3 and platelets 259. There is no leukocytosis. There are no significant electrolyte imbalances. BUN is 19 and creatinine 0.82. LFTs are normal. Troponin is 4.7 and albumin 3.8. Stool occult blood is positive. ED tx: Amlodipine 10 mg p.o. 12/25/[address] SCAN SHOWED: Liver and spleen within normal limits. Bilateral adrenal glands unremarkable. Cholecystectomy with biliary ductal dilation. Dilation is unchanged from prior study. Pancreatic duct dilation no longer identified. No acute abnormality noted in the pancreas. No significant focal renal abnormalities. Renal cysts, no stones or hydronephrosis. No free fluid or adenopathy in the pelvis. No diverticulitis. Appendix not identified. Mild perirectal stranding and wall thickening. Findings likely represent stercoral colitis. Large amount of stool in the rectal vault. Impression: Probable acute stercoral colitis PAST GI HISTORY BY REVIEW OF MEDICAL RECORDS: 12/2020 EGD AND COLONOSCOPY WERE PERFORMED BY DR. SILVERMAN: IMPRESSION: 1. Rule out celiac disease. 2. Nonbleeding angiodysplasias of duodenum. 3. Hiatal hernia, history of Ford's esophagus. 4. Colon polyp (tubular adenoma on biopsy). 5. Rule out microscopic colitis - random biopsies from the colon were normal. 6. Diverticulosis. 7. Internal hemorrhoids. PLAN: The results of the biopsies will be checked. I do not think she will need any further screening colonoscopies in the future. She was advised not to use any aspirin and NSAIDs for at least 1 week. She will continue her Prilosec for the chronic reflux. Recent laboratories including thyroid and celiac disease labs were negative and recent stool specimens were negative for any type of infection. She does have a prescription for Lomotil and I did advise her to use 1 or 2 Lomotil up to 4 times a day to keep her diarrhea under control. If that works well for, we could simply continue that. Another option might be a trial of cholestyramine at some point. She will be seen in 2 to 3 months for a followup visit. She was advised to avoid aspirin and NSAIDs long-term to minimize risk of bleeding from the angiodysplasias and elsewhere. BIOPSIES SHOWED: A. Duodenum, descending, biopsy: Duodenal mucosa with patchy mildly increased intraepithelial lymphocytes and preserved villous architecture. See comment. B. EG junction, 37 cm, biopsy: - Cardiofundic- type mucosa with moderate chronic inactive inflammation; no intestinal metaplasia seen. - Squamous mucosa within normal limits. [facility] Past Medical History Medical History Generalized anxiety disorder Nocturnal hypoxemia Acute rhinosinusitis Microscopic hematuria Renal cyst Osteoarthritis, knee COPD (chronic obstructive pulmonary disease) Acute and chronic respiratory failure with hypoxia COPD exacerbation LFT elevation Shortness of breath Rash Bilateral knee pain Hematuria Frequent falls Left-sided back pain Seizure disorder Allergic rhinitis Generalized abdominal pain Anemia Initial Medicare annual wellness visit Screening for osteoporosis Hypoxemia Anemia Syncope Nausea Chronic diarrhea Diarrhea Bile salt-induced diarrhea Cutaneous lupus erythematosus Osteoarthritis Hypertension Vitamin D deficiency COPD (chronic obstructive pulmonary disease) Ford's esophagus GERD (gastroesophageal reflux disease) Hypothyroid Family History Family History Father Lymphoma Lung cancer Mother Hypertension Diabetes Sister Brain cancer Surgical History Surgical History History of cataract surgery History of rectal surgery History of ear surgery History of cholecystectomy History of eye surgery Social History Social History Household Members: Family Household Members Other:: son, his and their 2 kids Housing: House Do you presently have visiting nurse or other home services: Yes Alcohol intake: former Patient Tobacco Use Status: Former Tobacco user Tobacco use type: Cigarette e-Cigarette/Vaping Use: Never Used Second Hand Smoke Exposure: Yes Advance Directives Date on File: 08/04/23 service: No Current occupational status: retired Cognitive needs: Yes (Walker, Cane) Hearing needs: Yes (hearing aide) Vision needs: Yes (Glasses) Meds Allergies Allergy/AdvReac Type Severity Reaction Status Date / Time amoxicillin (AMOXICILLIN) Allergy Intermediate STOMACH Verified 12/25/24 13:34 ISSUES pollen extracts (POLLEN) Allergy Mild RUNNY Verified 12/25/24 13:34 NOSE, SNEEZING, ITCHY EYES Sulfa (Sulfonamide Allergy Unknown Verified 12/25/24 13:34 Antibiotics) Active Medications: Current Medications Acetaminophen (Acetaminophen 325 Mg Tablet) 650 mg PO Q6H PRN PRN Reason: Pain, Mild 1-3,fever,headache Albuterol Sulfate (Albuterol Sulfate (0.083%) 2.5 Mg/3 Ml Vial.Neb) 2.5 mg INHALE Q3H PRN PRN Reason: Wheezing Calcium Carbonate (Calcium Carbonate 750 Mg Tab.Chew) 750 mg PO Q4H PRN PRN Reason: Heartburn Magnesium Hydroxide (Milk Of Magnesia 30 Ml Oral.Susp) 30 ml PO DAILY PRN PRN Reason: Constipation Melatonin (Melatonin 3 Mg Tablet) 6 mg PO BEDTIME PRN PRN Reason: Insomnia Pantoprazole Sodium (Pantoprazole Sodium 40 Mg/10 Ml Vial) 40 mg IVPUSH BID@0630,1630 [facility] Last Admin: 12/26/24 07:36 Dose: 40 mg Polyethylene Glycol (Polyethylene Glycol 3350 17 Gm Powd.Pack) 17 gm PO DAILY [facility] Last Admin: 12/26/24 07:39 Dose: Not Given Senna/Docusate Sodium (Sennosides/Docusate Sodium Tablet) 2 tab PO BEDTIME [facility] Sodium Chloride (0.9 % Sodium Chloride Flush 3 Ml Syringe) 3 ml IVFLUSH QSHIFT [facility] Last Admin: 12/26/24 07:36 Dose: 3 ml Home Medications ?Medication ?Instructions ?Recorded ?Confirmed ?Last Taken ?Type diphenoxylate-atropine 2.5 1 - 2 tab PO BID PRN Diarrh ea 07/07/24 12/26/24 08/02/24 History mg-0.025 mg tablet nystatin 100,000 unit/gram topical 1 appl topical BID 08/03/24 12/26/24 12/24/24 History powder (Klayesta) omeprazole 20 mg capsule,delayed 20 mg PO DAILY@0630 0 08/03/24 12/26/24 08/02/24 History release amlodipine 5 mg tablet 5 mg PO DAILY 12/26/2412/2612/24/24 History levetiracetam 500 mg tablet 500 mg PO Q12H 12/26/2412/24/24 History melatonin 5 mg capsule 5 mg PO BEDTIME PRN Sleep 12/26/24 12/24/24 History Physical Exam 2 Vital Signs: Vital Signs: Last Vital Signs Temp 97.4 F 12/26/24 07:46 Pulse 63 12/26/24 08:44 Resp 15 12/26/24 07:46 BP 154/65 H 12/26/24 08:44 Pulse Ox 98 12/26/24 07:46 O2 Del Method Room Air 12/26/24 07:46 O2 Flow Rate 2 12/25/24 18:30 Oxygen Flow Rate 2 12/25/24 15:18 BMI result Body Mass Index 22.1 Results Labs 12/26/24 03:55 12/26/24 03:55 Labs: Short CBC 12/25/24 12/25/24 12/26/24 Range/Units 14:34 21:03 03:55 WBC 6.8 6.1 (4.8-10.8) X10*3/uL Hgb 9.8 L 9.4 L 9.6 L (12.0-16.0) g/dl Hct 32.0 L 30.1 L 30.6 L (37.0-47.0) % Plt Count 259 D 240 (160-400) X10*3/uL BMP 12/25/24 12/26/24 14:34 03:55 Sodium 145 141 Potassium 4.6 4.0 Chloride 111 H 107 Carbon Dioxide 28 29 BUN 19 H 14 Creatinine 0.82 0.65 Calcium 9.3 9.0 Liver Function 12/25/24 Range/Units 14:34 Total Bilirubin 0.3 (0.0-1.0) mg/dL AST 16 (5-31) U/L ALT 9 (0-31) U/L Alkaline Phosphatase 74 (39-117) U/L Albumin 3.8 (3.5-5.0) g/dL Assessment and Plan (1) Constipation: Qualifiers: Constipation type: unspecified constipation type Qualified Code(s): K 59.00 - Constipation, unspecified Status: Acute (2) GI bleed: Status: Acute (3) Nausea & vomiting: Status: Acute Plan 79 YF with GERD, Ford's esophagus, colonic polyps, AVM, hypothyroidism, COPD on home oxygen 2 L/min via nasal cannula, essential hypertension and depression admitted to [facility] on 12/25/24 with constipation and black stool for the past 2 weeks. Pt denies taking aspirin, NSAIDS or blood thinners. Black stools with microcytic hypochromic anemia likely due to slow GI blood loss from UGI source - erosive esophagitis, PUD, UGI AVMs (of note pt had Nonbleeding angiodysplasias of duodenum on previous EGD) RECOMMENDATIONS: 1. Agree with IV PPI and antiemetics 2. Check iron studies - added to am labs 3. EGD (with possible flex sig) for further evaluation - pt placed on the OR add on list for EGD on 12/27/[address] Silverman who is aware. 4. Miralax three times daily x 24 hrs for constipation. FU with Dr Silverman (her primary GI) in the am Procedures Date of Service Date of Service: 12/26/24
--- NOTE | 2024-12-26 09:18 | PHA.MEDREC ---
Addendum entered by Amanda Wiley RPh 12/26/24 11:02: [facility] REC REVIEWED BY [facility] Original Note: Pharmacy Consult ? Medication Reconciliation Pharmacy has completed the medication reconciliation. Confirmed medication list with family member. Patient has not been using nystatin powder regularly at home. Levothyroxine was only medication taken yesterday. All other medications except topical Nystatin Powder and diphenoxylate-atropine (lomotil) were taken on Friday (12/24).
[2024-12-26] MEDS: Flu Vacc TS2025-26(6mo up)/PF 0.5 ML SYRINGE IM (11:40)
--- NOTE | 2024-12-26 16:46 | MHC.CM.PN ---
PT REPORTS SHE LIVES WITH HER SON AND HIS FAMILY SHE IS INDEPENDENT WITH CARE AND HAS NO SERVICES PT USES A ROLLATOR AND HOME O2 FROM [facility] [place] HCP ON FILE PCP: SMITHA SALDIVAR IMM DELIVERED DCP: HOME VIA FAM[facility] TRANSP[facility]
--- NOTE | 2024-12-26 17:13 | HO.PM.IMPN ---
Subjective Subjective Date of Service: 12/26/24 Interval History: Microcytic hypochromic acute blood loss anemia- Hemoglobin appears to be stable at 9.6 GI consulted EGD in the a.m. with Dr. Lang Patient has SBP 190s to 180s consistently since admission, we will treat with p.r.n. IV meds for hypotension given NPO status and risk for hemodynamic collapse Patient has a right facial droop which appears to be chronic Review of Systems Review of Systems: Yes all other systems are reviewed and are negative Physical Exam Exam: Exam: General: AOx3, no acute distress Resp: CTA bilaterally CVS: S1, S2, RRR GI: +BS, NT, no distention Skin: Warm, dry Neuro: Appears stressed right facial droop, grossly appears neurologically intact Psych: Appropriate affect Objective Data Active Medications Acetaminophen (Acetaminophen 325 Mg Tablet) 650 mg PO Q6H PRN PRN Reason: Pain, Mild 1-3,fever,headache Albuterol Sulfate (Albuterol Sulfate (0.083%) 2.5 Mg/3 Ml Vial.Neb) 2.5 mg INHALE Q3H PRN PRN Reason: Wheezing Atorvastatin Calcium (Atorvastatin Calcium 10 Mg Tablet) 10 mg PO BEDTIME BRENT Calcium Carbonate (Calcium Carbonate 750 Mg Tab.Chew) 750 mg PO Q4H PRN PRN Reason: Heartburn Levetiracetam (Levetiracetam 500 Mg Tablet) 500 mg PO BID [facility] Last Admin: 12/26/24 11:40 Dose: 500 mg Documented By: VALENTINA Levothyroxine Sodium (Levothyroxine Sodium 112 Mcg Tablet) 112 mcg PO DAILY@0600 [facility] Loratadine (Loratadine 10 Mg Tablet) 10 mg PO BEDTIME [facility] Magnesium Hydroxide (Milk Of Magnesia 30 Ml Oral.Susp) 30 ml PO DAILY PRN PRN Reason: Constipation Melatonin (Melatonin 3 Mg Tablet) 6 mg PO BEDTIME PRN PRN Reason: Insomnia Memantine (Memantine Hcl 10 Mg Tablet) 10 mg PO BEDTIME [facility] Nystatin (Nystatin Powder 15 Gm Bottle) 1 appl TOPICAL BID [facility]; Protocol Pantoprazole Sodium (Pantoprazole Sodium 40 Mg/10 Ml Vial) 40 mg IVPUSH BID@0630,1630 [facility] Last Admin: 12/26/24 16:13 Dose: 40 mg Documented By: VALENTINA Polyethylene Glycol (Polyethylene Glycol 3350 17 Gm Powd.Pack) 17 gm PO TID [facility] Last Admin: 12/26/24 14:21 Dose: Not Given Documented By: VALENTINA Non-Admin Reason: Previously Administered Senna/Docusate Sodium (Sennosides/Docusate Sodium Tablet) 2 tab PO BEDTIME [facility] Sertraline HCl (Sertraline Hcl 50 Mg Tablet) 50 mg PO DAILY [facility] Last Admin: 12/26/24 11:44 Dose: 50 mg Documented By: VALENTINA Sodium Chloride (0.9 % Sodium Chloride Flush 3 Ml Syringe) 3 ml IVFLUSH QSHIFT [facility] Last Admin: 12/26/24 15:27 Dose: Not Given Documented By: VALENTINA Non-Admin Reason: IV Running Labs 12/26/24 03:55 12/26/24 03:55 Labs: Laboratory Results - last 24 hr 12/25/24 12/25/24 12/25/24 14:34 18:29 21:02 MCV MCH MCHC RDW Plt Count MPV Absolute Nucleated RBC Nucleated RBC % (auto) PT INR Anion Gap Estim Creat Clear Calc Estimated GFR Random Glucose Calcium TSH 0.17 L Stool Occult Blood POSITIVE Blood Type B Positive Antibody Screen NEGATIVE 12/25/24 12/26/24 21:03 03:55 MCV 76.3 L MCH 23.9 L MCHC 31.4 RDW 15.0 Plt Count 240 MPV 11.3 Absolute Nucleated RBC 0.000 Nucleated RBC % (auto) 0.0 PT 12.0 11.7 INR 1.0 1.0 Anion Gap 9 L Estim Creat Clear Calc 52.0 Estimated GFR > 60 Random Glucose 95 Calcium 9.0 TSH Stool Occult Blood Blood Type Antibody Screen Assessment and Plan (1) Acute blood loss anemia: Status: Acute Plan 79 years old woman with a past medical history significant for GERD, Ford's esophagus, colonic polyps, AVM, hypothyroidism, COPD on home oxygen 2 L/min via nasal cannula, essential hypertension and depression who presents to the emergency department complaining of constipation ABLA 2/2 unclear etiology in a patient with hematochezia History of AVMs History of Ford's esophagus History of GERD Given her significant GI history as noted above, could be in the setting of UGI be versus LGI be although UGI B would have presented with a melena. She is otherwise hemodynamically stable appearing, no further hematochezia or hypotensive episodes in fact she is actually hypertensive as noted in her charts. No NSAID, anticoagulation or alcohol use. GI consulted NPO past midnight for EGD by CBC QAM PPI b.i.d. Hypertensive urgency - we need med rec however the patient only appears to be on amlodipine 5 mg daily however patient needs at least , unclear as the patient apparently needed to be on HCTZ and losartan Tele, trop-type 2 -stable, does not need trending Continue daily CBCs, might escalate if needed I have initiated hydralazine 5 q.6 p.r.n. for SBP greater than 160 to allow permissive hypertension given that I believe the patient likely has chronic hypertension, untreated, issue of compliance is also a problem Vitals Q8 Deconditioning PTOT Epilepsy Continue Keppra Depression anxiety Continue home sertraline Clinical decline-continue home memantine Hypothyroidism Continue home levothyroxine DVT prophylaxis with Lovenox Full code This note is constructed using voice recognition software. While every effort has been made to ensure accuracy, machinist mechanic errors may have been included. This patient is admitted for inpatient management of an acute upper GI bleed, evidenced by abnormal labs-suggestive of malignant pathology. Due to the active nature of the hemorrhage, there is a need for immediate and close monitoring to ensure hemodynamic stability and to prevent potential life-threatening complications such as shock, end-organ injury, and recurrent bleeding. Quality Stroke Does the patient have a stroke diagnosis?: No VTE Prior VTE?: No VTE Risk Level:: Medical - moderate - high VTE Device Contraindication: N/A - Device Ordered VTE Drug Contraindication: N/A - Med Ordered
--- NOTE | 2024-12-26 17:44 | PC.NURSE ---
Addendum entered by Liz Junior RN 12/26/24 18:37: BP check after one hour 146/60 Original Note: MD Engle aware pts BP continues to be elevated. 172/72 at 1707 per MD give IVP hydralazine, medication given per JUN, pending effectiveness.
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
[2024-12-27] VITALS (7 sets, daily range): BP systolic 119–173; BP diastolic 51–80; PULSE 56–97; RESP 12–19; TEMP 36–36.7; O2SAT 95–100
[2024-12-27 06:07] LABS: MANUAL DIFF FLAG NO
[2024-12-27 06:15] LABS: Hematocrit 31.9 % (37.0-47.0); Hemoglobin 10.0 g/dl (12.0-16.0); Imm Gran Abs Auto 0.01 X10*3/uL (0.00-0.03); Imm Gran Pct Auto 0.2 % (0.0-0.4); Lymphocytes Absolute Auto 1.1 X10*3/uL (1.2-4.9); Mean Corpuscular HGB Conc 31.3 g/dl (31.0-35.0); Mean Corpuscular Hemoglobin 24.0 pg (27.0-33.0); Mean Corpuscular Volume 76.7 fL (80.0-98.0); NRBC Abs Auto 0.000 X10*3/uL (0.0-0.012); NRBC Pct Auto 0.0 /100WBC (0.0-0.2); Platelet Count 262 X10*3/uL (160-400); Red Blood Count 4.16 X10*6/uL (4.20-5.50); White Blood Count 4.0 X10*3/uL (4.8-10.8)
[2024-12-27 06:52] LABS: Ferritin 19 ng/mL (10-250); Thyroid Stimulating Hormone 0.23 uIU/mL (0.32-4.0)
[2024-12-27 07:00] LABS: Alanine Aminotransferase < 6 U/L (0-31); Albumin Level 3.6 g/dL (3.5-5.0); Alkaline Phosphatase 68 U/L (39-117); Anion Gap 11 (12-20); Aspartate Amino Transferase 15 U/L (5-31); Blood Urea Nitrogen 18 mg/dL (9-16); Calcium 9.6 mg/dL (8.4-10.2); Carbon Dioxide 31 mmol/L (22-29); Chloride 107 mmol/L (96-108); Creatinine Clr Calc Pharmacy 42.2; Estimated Glomerular Filt Rate > 60; Iron 14 mcg/dL (30-160); Percent Iron Saturation 5 % (15-50); Potassium 4.3 mmol/L (3.3-5.1); Sodium 145 mmol/L (135-145); Total Iron Binding Capacity 272 mcg/dL (228-428); Total Protein 6.9 g/dL (6.5-8.0); Unsaturated Iron Binding 258 ug/dL
--- NOTE | 2024-12-27 07:21 | P.PNIM_ITS ---
Subjective Subjective Date of Service: 12/27/24 Interval History: EGD today Hemoglobin stable Patient does not have any concerns PTOT Review of Systems Review of Systems: Yes all other systems are reviewed and are negative Physical Exam 2 Exam: Exam: General: AOx3, no acute distress Resp: CTA bilaterally CVS: S1, S2, RRR GI: +BS, NT, no distention Skin: Warm, dry Neuro: Appears stressed right facial droop, grossly appears neurologically intact Psych: Appropriate affect Vital Signs: Vital Signs: Last Vital Signs Temp 96.8 F 12/27/24 03:31 Pulse 66 12/27/24 03:31 Resp 19 12/27/24 03:31 BP 160/75 H 12/27/24 03:31 Pulse Ox 100 12/27/24 03:31 O2 Del Method Nasal Cannula 12/27/24 03:31 O2 Flow Rate 2 12/27/24 03:31 Oxygen Flow Rate 2 12/25/24 15:18 BMI result Body Mass Index 21.7 Objective Data Active Medications Acetaminophen (Acetaminophen 325 Mg Tablet) 650 mg PO Q6H PRN PRN Reason: Pain, Mild 1-3,fever,headache Last Admin: 12/26/24 17:28 Dose: 650 mg Documented By: VALENTIAN Albuterol Sulfate (Albuterol Sulfate (0.083%) 2.5 Mg/3 Ml Vial.Neb) 2.5 mg INHALE Q3H PRN PRN Reason: Wheezing Atorvastatin Calcium (Atorvastatin Calcium 10 Mg Tablet) 10 mg PO BEDTIME [facility] Last Admin: 12/26/24 19:48 Dose: 10 mg Documented By: HUSSEIN Calcium Carbonate (Calcium Carbonate 750 Mg Tab.Chew) 750 mg PO Q4H PRN PRN Reason: Heartburn Hydralazine HCl (Hydralazine Hcl 20 Mg/Ml Vial) 5 mg IVPUSH Q6H PRN; Protocol PRN Reason: hypertension Last Admin: 12/26/24 17:23 Dose: 5 mg Documented By: VALENTINA Levetiracetam (Levetiracetam 500 Mg Tablet) 500 mg PO BID [facility] Last Admin: 12/26/24 19:48 Dose: 500 mg Documented By: HUSSEIN Levothyroxine Sodium (Levothyroxine Sodium 112 Mcg Tablet) 112 mcg PO DAILY@0600 [facility] Last Admin: 12/27/24 05:48 Dose: 112 mcg Documented By: LOBO Loratadine (Loratadine 10 Mg Tablet) 10 mg PO BEDTIME [facility] Last Admin: 12/26/24 19:48 Dose: 10 mg Documented By: HUSSEIN Magnesium Hydroxide (Milk Of Magnesia 30 Ml Oral.Susp) 30 ml PO DAILY PRN PRN Reason: Constipation Melatonin (Melatonin 3 Mg Tablet) 6 mg PO BEDTIME PRN PRN Reason: Insomnia Memantine (Memantine Hcl 10 Mg Tablet) 10 mg PO BEDTIME [facility] Last Admin: 12/26/24 19:48 Dose: 10 mg Documented By: HUSSEIN Nystatin (Nystatin Powder 15 Gm Bottle) 1 appl TOPICAL BID [facility]; Protocol Last Admin: 12/26/24 19:47 Dose: 1 appl Documented By: HUSSEIN Pantoprazole Sodium (Pantoprazole Sodium 40 Mg/10 Ml Vial) 40 mg IVPUSH BID@0630,1630 [facility] Last Admin: 12/27/24 05:48 Dose: 40 mg Documented By: LOBO Polyethylene Glycol (Polyethylene Glycol 3350 17 Gm Powd.Pack) 17 gm PO TID [facility] Last Admin: 12/26/24 19:48 Dose: 17 gm Documented By: HUSSEIN Senna/Docusate Sodium (Sennosides/Docusate Sodium Tablet) 2 tab PO BEDTIME [facility] Last Admin: 12/26/24 19:48 Dose: 2 tab Documented By: HUSSEIN Sertraline HCl (Sertraline Hcl 50 Mg Tablet) 50 mg PO DAILY [facility] Last Admin: 12/26/24 11:44 Dose: 50 mg Documented By: VALENTINA Sodium Chloride (0.9 % Sodium Chloride Flush 3 Ml Syringe) 3 ml IVFLUSH QSHIFT [facility] Last Admin: 12/26/24 19:48 Dose: 3 ml Documented By: HUSSEIN Labs 12/27/24 05:48 12/27/24 05:48 Labs: Laboratory Results - last 24 hr 12/27/24 05:48 MCV 76.7 L MCH 24.0 L MCHC 31.3 RDW 15.3 Plt Count 262 MPV 11.5 Immature Gran % (Auto) 0.2 Neut % (Auto) 57.7 Lymph % (Auto) 28.3 [place] % (Auto) 10.9 Eos % (Auto) 2.2 Baso % (Auto) 0.7 Lymph # (Auto) 1.1 L [place] # (Auto) 0.4 Eos # (Auto) 0.1 Baso # (Auto) 0.0 Abs Immat Gran (auto) 0.01 Absolute Neuts (auto) 2.3 Absolute Nucleated RBC 0.000 Nucleated RBC % (auto) 0.0 Anion Gap 11 L Estim Creat Clear Calc 42.2 Estimated GFR > 60 Random Glucose 95 Calcium 9.6 D Iron 14 L TIBC 272 % Saturation 5 L Unsat Iron Binding 258 Ferritin 19 Total Bilirubin 0.4 AST 15 ALT < 6 Alkaline Phosphatase 68 Total Protein 6.9 Albumin 3.6 TSH 0.23 L Assessment and Plan (1) Acute blood loss anemia: Status: Acute Plan 79 years old woman with a past medical history significant for GERD, Ford's esophagus, colonic polyps, AVM, hypothyroidism, COPD on home oxygen 2 L/min via nasal cannula, essential hypertension and depression who presents to the emergency department complaining of constipation and was noted to have acute blood loss anemia because of possibly UGIB versus LGIB. ABLA 2/2 unclear etiology in a patient with hematochezia History of AVMs History of Ford's esophagus History of GERD Given her significant GI history as noted above, could be in the setting of UGI be versus LGI be although UGI B would have presented with a melena. She is otherwise hemodynamically stable appearing, no further hematochezia or hypotensive episodes in fact she is actually hypertensive as noted in her charts. No NSAID, anticoagulation or alcohol use. GI EGD by today CBC QAM PPI b.i.d. Hypertensive urgency - we need med rec however the patient only appears to be on amlodipine 5 mg daily however patient needs at least , unclear as the patient apparently needed to be on HCTZ and losartan Tele, trop-type 2 -stable, does not need trending Continue hydralazine 5 q.6 p.r.n. for SBP greater than 160 to allow permissive hypertension given that I believe the patient likely has chronic hypertension, untreated, issue of compliance is also a concern Vitals Q8 Deconditioning PTOT Epilepsy Continue Keppra Depression anxiety Continue home sertraline Clinical decline-continue home memantine Hypothyroidism Continue home levothyroxine DVT prophylaxis with Lovenox Full code This note is constructed using voice recognition software. While every effort has been made to ensure accuracy, perforator typist errors may have been included. This patient needs inpatient management of an acute upper GI bleed, evidenced by abnormal labs-suggestive of malignant pathology. Due to the active nature of the hemorrhage, there is a need for immediate and close monitoring to ensure hemodynamic stability and to prevent potential life-threatening complications such as shock, end-organ injury, and recurrent bleeding. Quality Stroke Does the patient have a stroke diagnosis?: No VTE Prior VTE?: No VTE Risk Level:: Medical - moderate - high VTE Device Contraindication: N/A - Device Ordered VTE Drug Contraindication: N/A - Med Ordered
--- NOTE | 2024-12-27 08:31 | P.CONAN_ITS ---
HPI - Anesthesia Eval Consult details Narrative: 79 yr old female for EGD No CP with very minimal activity; chronic SOB on O2 COPD: on 2 liters O2, sats are 100% Memory loss: lives with family Hypertension: systolic BPs have been elevated during admission Seizure disorder: on medication, ?seizure 1 month ago, although pt is poor historian Right facial droop: appears to be chronic per hospitalist note; denies h/o CVA; follows with [facility] [place] [facility] neuro but no recent notes [facility] Active Problems Active Problems: All Active Problems Constipation (Acute) Acute blood loss anemia (Acute) GI bleed (Acute) Anemia (Acute) Near syncope (Acute) Pre-syncope (Acute) Intractable vomiting (Acute) Intractable diarrhea (Acute) Nausea & vomiting (Acute) Syncope (Acute) Diarrhea (Acute) Acute proctitis (Acute) UTI (urinary tract infection) (Acute) Dilated cbd, acquired (Acute) Medicare annual wellness visit, subsequent (Acute) COVID-19 (Acute) Acute exacerbation of chronic obstructive pulmonary disease (Acute) Hypercholesterolemia (Acute) Nocturnal hypoxemia (Acute) Acute rhinosinusitis (Acute) LFT elevation (Acute) Microscopic hematuria (Acute) Renal cyst (Acute) COPD (chronic obstructive pulmonary disease) (Acute) Age related osteoporosis (Acute) Allergic rhinitis (Acute) IBS (irritable bowel syndrome) (Acute) H. pylori duodenitis (Acute) Vitamin D deficiency (Acute) Vitamin B 12 deficiency (Acute) Cognitive impairment (Acute) Gait instability (Acute) Osteoarthritis (Acute) Ford's esophagus (Acute) GERD (gastroesophageal reflux disease) (Acute) Hypothyroid (Acute) Past Medical History Medical History Generalized anxiety disorder Nocturnal hypoxemia Acute rhinosinusitis Microscopic hematuria Renal cyst Osteoarthritis, knee COPD (chronic obstructive pulmonary disease) Acute and chronic respiratory failure with hypoxia COPD exacerbation LFT elevation Shortness of breath Rash Bilateral knee pain Hematuria Frequent falls Left-sided back pain Seizure disorder Allergic rhinitis Generalized abdominal pain Anemia Initial Medicare annual wellness visit Screening for osteoporosis Hypoxemia Anemia Syncope Nausea Chronic diarrhea Diarrhea Bile salt-induced diarrhea Cutaneous lupus erythematosus Osteoarthritis Hypertension Vitamin D deficiency COPD (chronic obstructive pulmonary disease) Ford's esophagus GERD (gastroesophageal reflux disease) Hypothyroid Family History Family History Father Lymphoma Lung cancer Mother Hypertension Diabetes Sister Brain cancer Family history of problems with anesthesia: No Surgical History Surgical History History of cataract surgery History of rectal surgery History of ear surgery History of cholecystectomy History of eye surgery History of Problems with Anesthesia: No Social History Social History Household Members: Family Household Members Other:: son, his and their 2 kids Housing: House Do you presently have visiting nurse or other home services: Yes Alcohol intake: former Patient Tobacco Use Status: Former Tobacco user Tobacco use type: Cigarette e-Cigarette/Vaping Use: Never Used Second Hand Smoke Exposure: Yes Advance Directives Date on File: 08/04/23 service: No Current occupational status: retired Cognitive needs: Yes (Walker, Cane) Hearing needs: Yes (hearing aide) Vision needs: Yes (Glasses) Meds Allergies Allergy/AdvReac Type Severity Reaction Status Date / Time amoxicillin (AMOXICILLIN) Allergy Intermediate STOMACH Verified 12/25/24 13:34 ISSUES pollen extracts (POLLEN) Allergy Mild RUNNY Verified 12/25/24 13:34 NOSE, SNEEZING, ITCHY EYES Sulfa (Sulfonamide Allergy Unknown Verified 12/25/24 13:34 Antibiotics) Active Medications: Current Medications Acetaminophen (Acetaminophen 325 Mg Tablet) 650 mg PO Q6H PRN PRN Reason: Pain, Mild 1-3,fever,headache Last Admin: 12/26/24 17:28 Dose: 650 mg Albuterol Sulfate (Albuterol Sulfate (0.083%) 2.5 Mg/3 Ml Vial.Neb) 2.5 mg INHALE Q3H PRN PRN Reason: Wheezing Atorvastatin Calcium (Atorvastatin Calcium 10 Mg Tablet) 10 mg PO BEDTIME [facility] Last Admin: 12/26/24 19:48 Dose: 10 mg Calcium Carbonate (Calcium Carbonate 750 Mg Tab.Chew) 750 mg PO Q4H PRN PRN Reason: Heartburn Hydralazine HCl (Hydralazine Hcl 20 Mg/Ml Vial) 5 mg IVPUSH Q6H PRN; Protocol PRN Reason: hypertension Last Admin: 12/26/24 17:23 Dose: 5 mg Levetiracetam (Levetiracetam 500 Mg Tablet) 500 mg PO BID [facility] Last Admin: 12/26/24 19:48 Dose: 500 mg Levothyroxine Sodium (Levothyroxine Sodium 112 Mcg Tablet) 112 mcg PO DAILY@0600 [facility] Last Admin: 12/27/24 05:48 Dose: 112 mcg Loratadine (Loratadine 10 Mg Tablet) 10 mg PO BEDTIME [facility] Last Admin: 12/26/24 19:48 Dose: 10 mg Magnesium Hydroxide (Milk Of Magnesia 30 Ml Oral.Susp) 30 ml PO DAILY PRN PRN Reason: Constipation Melatonin (Melatonin 3 Mg Tablet) 6 mg PO BEDTIME PRN PRN Reason: Insomnia Memantine (Memantine Hcl 10 Mg Tablet) 10 mg PO BEDTIME [facility] Last Admin: 12/26/24 19:48 Dose: 10 mg Nystatin (Nystatin Powder 15 Gm Bottle) 1 appl TOPICAL BID [facility]; Protocol Last Admin: 12/26/24 19:47 Dose: 1 appl Pantoprazole Sodium (Pantoprazole Sodium 40 Mg/10 Ml Vial) 40 mg IVPUSH BID@0630,1630 [facility] Last Admin: 12/27/24 05:48 Dose: 40 mg Polyethylene Glycol (Polyethylene Glycol 3350 17 Gm Powd.Pack) 17 gm PO TID [facility] Last Admin: 12/26/24 19:48 Dose: 17 gm Senna/Docusate Sodium (Sennosides/Docusate Sodium Tablet) 2 tab PO BEDTIME [facility] Last Admin: 12/26/24 19:48 Dose: 2 tab Sertraline HCl (Sertraline Hcl 50 Mg Tablet) 50 mg PO DAILY [facility] Last Admin: 12/26/24 11:44 Dose: 50 mg Sodium Chloride (0.9 % Sodium Chloride Flush 3 Ml Syringe) 3 ml IVFLUSH QSHIFT [facility] Last Admin: 12/26/24 19:48 Dose: 3 ml Home Medications ?Medication ?Instructions ?Recorded ?Confirmed ?Last Taken ?Type diphenoxylate-atropine 2.5 1 - 2 tab PO BID PRN Diarrh ea 07/07/24 12/26/24 08/02/24 History mg-0.025 mg tablet nystatin 100,000 unit/gram topical 1 appl topical BID 08/03/24 12/26/24 12/24/24 History powder (Klayesta) omeprazole 20 mg capsule,delayed 20 mg PO DAILY@0630 0 08/03/24 12/26/24 08/02/24 History release amlodipine 5 mg tablet 5 mg PO DAILY 12/26/2412/2612/24/24 History levetiracetam 500 mg tablet 500 mg PO Q12H 12/26/2412/24/24 History melatonin 5 mg capsule 5 mg PO BEDTIME PRN Sleep 12/26/24 12/24/24 History Exam Height,Weight and Vital Signs: Height 5 ft 1 in Weight 52.1 kg Last Vital Signs Temp 97.6 F 12/27/24 07:24 Pulse 61 12/27/24 07:24 Resp 12 12/27/24 07:24 BP 140/80 H 12/27/24 07:24 Pulse Ox 100 12/27/24 07:24 O2 Del Method Nasal Cannula 12/27/24 07:24 O2 Flow Rate 2 12/27/24 07:24 Oxygen Flow Rate 2 12/25/24 15:18 Pertinent Lab Results Pertinent Lab Results: Laboratory Tests 12/25/24 12/25/24 12/25/24 14:34 18:29 21:02 WBC 6.8 RBC 4.09 L Hgb 9.8 L Hct 32.0 L MCV 78.2 L MCH 24.0 L MCHC 30.6 L RDW 15.1 Plt Count 259 D MPV 12.3 Immature Gran % (Auto) 0.1 Neut % (Auto) 85.7 H Lymph % (Auto) 8.5 L [place] % (Auto) 5.3 Eos % (Auto) 0.1 Baso % (Auto) 0.3 Lymph # (Auto) 0.6 L [place] # (Auto) 0.4 Eos # (Auto) 0.0 Baso # (Auto) 0.0 Abs Immat Gran (auto) 0.01 Absolute Neuts (auto) 5.8 Absolute Nucleated RBC 0.000 Nucleated RBC % (auto) 0.0 PT INR Sodium 145 Potassium 4.6 Chloride 111 H Carbon Dioxide 28 Anion Gap 11 L BUN 19 H Creatinine 0.82 Estim Creat Clear Calc 41.2 Estimated GFR > 60 Random Glucose 101 Calcium 9.3 Magnesium 1.9 Iron TIBC % Saturation Unsat Iron Binding Ferritin Total Bilirubin 0.3 AST 16 ALT 9 Alkaline Phosphatase 74 Troponin I High Sens 4.7 Total Protein 7.0 Albumin 3.8 TSH 0.17 L Stool Occult Blood POSITIVE Blood Type B Positive Antibody Screen NEGATIVE 12/25/24 12/26/24 12/27/24 21:03 03:55 05:48 WBC 6.1 4.0 L RBC 4.01 L 4.16 L Hgb 9.4 L 9.6 L 10.0 L Hct 30.1 L 30.6 L 31.9 L MCV 76.3 L 76.7 L MCH 23.9 L 24.0 L MCHC 31.4 31.3 RDW 15.0 15.3 Plt Count 240 262 MPV 11.3 11.5 Immature Gran % (Auto) 0.2 Neut % (Auto) 57.7 Lymph % (Auto) 28.3 [place] % (Auto) 10.9 Eos % (Auto) 2.2 Baso % (Auto) 0.7 Lymph # (Auto) 1.1 L [place] # (Auto) 0.4 Eos # (Auto) 0.1 Baso # (Auto) 0.0 Abs Immat Gran (auto) 0.01 Absolute Neuts (auto) 2.3 Absolute Nucleated RBC 0.000 0.000 Nucleated RBC % (auto) 0.0 0.0 PT 12.0 11.7 INR 1.0 1.0 Sodium 141 145 Potassium 4.0 4.3 Chloride 107 107 Carbon Dioxide 29 31 H Anion Gap 9 L 11 L BUN 14 18 H Creatinine 0.65 0.80 Estim Creat Clear Calc 52.0 42.2 Estimated GFR > 60 > 60 Random Glucose 95 95 Calcium 9.0 9.6 D Magnesium Iron 14 L TIBC 272 % Saturation 5 L Unsat Iron Binding 258 Ferritin 19 Total Bilirubin 0.4 AST 15 ALT < 6 Alkaline Phosphatase 68 Troponin I High Sens Total Protein 6.9 Albumin 3.6 TSH 0.23 L Stool Occult Blood Blood Type Antibody Screen Narrative Narrative: EKG 12/25/24 Vent. Rate : 56 BPM Atrial Rate : 56 BPM P-R Int : 158 ms QRS Dur : 82 ms QT Int : 432 ms P-R-T Axes : 80 69 83 degrees QTcB Int : 416 ms Sinus bradycardia Otherwise normal ECG When compared with ECG of 06-Aug-2024 19:40, Premature supraventricular complexes are no longer Present Nonspecific T wave abnormality no longer evident in Anterolateral leads Airway Mallampati Class: III TM Dist: >3cm Neck ROM: Limited Heart: RRR Lungs: CTAB Assessment and Plan Final Anesthetic Review Family History of Problems with Anesthesia: No History of Problems with Anesthesia: No
[2024-12-27] MEDS: 0.9 % Sodium Chloride Flush 3 ML SYRINGE IVFLUSH ×3 (08:54→20:33)
--- NOTE | 2024-12-27 15:27 | MHC.SHP ---
Pre-Procedural Eval Section A - 24 Hr Update-Section A only Date of Service: 12/27/24 The patient is an INPATIENT: Yes Changes since office visit: No Cold of Flu in the past 2 weeks, No New Medical Problems, No Changes in Medication and No Patient answered all questions The patient has been examined within 24 hours of the surgical procedure. The History & Physical has been completed within 30 days and I have reviewed it.: Yes Section B - Complete if H&P > 30 days Chief Complaint: Blood loss anemia like due to GI bleeding Allergies: Allergies Allergy/AdvReac Type Severity Reaction Status Date / Time amoxicillin (AMOXICILLIN) Allergy Intermediate STOMACH Verified 12/25/24 13:34 ISSUES pollen extracts (POLLEN) Allergy Mild RUNNY Verified 12/25/24 13:34 NOSE, SNEEZING, ITCHY EYES Sulfa (Sulfonamide Allergy Unknown Verified 12/25/24 13:34 Antibiotics) Plan I have reviewed the history and physical and performed a pertinent physical examination on my patient. No changes have occurred unless specified. Time Spent With Patient Time: Total time managing care of this patient today ____ minutes.
--- NOTE | 2024-12-27 15:49 | PM.OP ---
Brief Operative Note Date of Service: 12/27/24 Pre-op diagnosis: gi bleed Post-op diagnosis: same Procedure: egd Surgeon: Guillaume Mitchell MD Anesthesia: MAC Was an Senior Engineering Manager used for this Procedure?: No Estimated blood loss (mL): 2 Pathology: other Condition: stable Disposition: PACU
--- NOTE | 2024-12-27 15:51 | PM.EVENT ---
Event Note Date of Service: 12/27/24 Event Note: GI mild gastritis no bleeding advance diet follow hct out pt f/u with Dr Lang Time Spent With Patient Time: Total time managing care of this patient today ____ minutes.
[2024-12-28 07:07] LABS: Hematocrit 30.8 % (37.0-47.0); Hemoglobin 9.1 g/dl (12.0-16.0); Mean Corpuscular Volume 77.8 fL (80.0-98.0); Platelet Count 282 X10*3/uL (160-400); Red Blood Count 3.96 X10*6/uL (4.20-5.50)
--- NOTE | 2024-12-28 07:23 | HO.PM.IMPN ---
Subjective Subjective Date of Service: 12/28/24 Interval History: Patient is EGD revealed mild gastritis, hemodynamically stable, resume diet 1 unit drop in hemoglobin, her higher level yesterday could have been secondary to hemoconcentration Review of Systems Review of Systems: Yes all other systems are reviewed and are negative Physical Exam Exam: Exam: General: AOx3, no acute distress Resp: CTA bilaterally CVS: S1, S2, RRR GI: +BS, NT, no distention Skin: Warm, dry Neuro: Appears stressed chronic right facial droop, grossly appears neurologically intact Psych: Appropriate affect Vital Signs: Vital Signs: Last Vital Signs Temp 98.1 F 12/27/24 20:00 Pulse 97 12/27/24 20:00 Resp 19 12/27/24 20:00 BP 123/71 12/27/24 20:00 Pulse Ox 96 12/27/24 20:00 O2 Del Method Room Air 12/27/24 20:00 O2 Flow Rate 2 12/27/24 16:09 Oxygen Flow Rate 2 12/25/24 15:18 BMI result Body Mass Index 21.7 Objective Data Active Medications Acetaminophen (Acetaminophen 325 Mg Tablet) 650 mg PO Q6H PRN PRN Reason: Pain, Mild 1-3,fever,headache Last Admin: 12/26/24 17:28 Dose: 650 mg Documented By: VALENTINA Albuterol Sulfate (Albuterol Sulfate (0.083%) 2.5 Mg/3 Ml Vial.Neb) 2.5 mg INHALE Q3H PRN PRN Reason: Wheezing Atorvastatin Calcium (Atorvastatin Calcium 10 Mg Tablet) 10 mg PO BEDTIME [facility] Last Admin: 12/27/24 20:30 Dose: 10 mg Documented By: LOBO Calcium Carbonate (Calcium Carbonate 750 Mg Tab.Chew) 750 mg PO Q4H PRN PRN Reason: Heartburn Hydralazine HCl (Hydralazine Hcl 20 Mg/Ml Vial) 5 mg IVPUSH Q6H PRN; Protocol PRN Reason: hypertension Last Admin: 12/26/24 17:23 Dose: 5 mg Documented By: VALENTINA Levetiracetam (Levetiracetam 500 Mg Tablet) 500 mg PO BID [facility] Last Admin: 12/27/24 20:30 Dose: 500 mg Documented By: LOBO Levothyroxine Sodium (Levothyroxine Sodium 112 Mcg Tablet) 112 mcg PO DAILY@0600 [facility] Last Admin: 12/28/24 05:22 Dose: 112 mcg Documented By: LOBO Loratadine (Loratadine 10 Mg Tablet) 10 mg PO BEDTIME [facility] Last Admin: 12/27/24 20:30 Dose: 10 mg Documented By: LOBO Magnesium Hydroxide (Milk Of Magnesia 30 Ml Oral.Susp) 30 ml PO DAILY PRN PRN Reason: Constipation Melatonin (Melatonin 3 Mg Tablet) 6 mg PO BEDTIME PRN PRN Reason: Insomnia Memantine (Memantine Hcl 10 Mg Tablet) 10 mg PO BEDTIME [facility] Last Admin: 12/27/24 20:30 Dose: 10 mg Documented By: LOBO Naloxone HCl (Naloxone Hcl 0.4 Mg/Ml Vial) 0.04 mg IVPUSH Q5M PRN PRN Reason: Excessive sedation or RR < 8 Nystatin (Nystatin Powder 15 Gm Bottle) 1 appl TOPICAL BID [facility]; Protocol Last Admin: 12/27/24 20:32 Dose: 1 appl Documented By: LOBO Pantoprazole Sodium (Pantoprazole Sodium 40 Mg/10 Ml Vial) 40 mg IVPUSH BID@0630,1630 [facility] Last Admin: 12/28/24 05:22 Dose: 40 mg Documented By: LOBO Polyethylene Glycol (Polyethylene Glycol 3350 17 Gm Powd.Pack) 17 gm PO TID [facility] Last Admin: 12/27/24 20:30 Dose: 17 gm Documented By: LOBO Senna/Docusate Sodium (Sennosides/Docusate Sodium Tablet) 2 tab PO BEDTIME [facility] Last Admin: 12/27/24 20:30 Dose: 2 tab Documented By: LOBO Sertraline HCl (Sertraline Hcl 50 Mg Tablet) 50 mg PO DAILY [facility] Last Admin: 12/27/24 08:52 Dose: 50 mg Documented By: GRAZJOLIE Sodium Chloride (0.9 % Sodium Chloride Flush 3 Ml Syringe) 3 ml IVFLUSH QSHIFT [facility] Last Admin: 12/27/24 20:33 Dose: 3 ml Documented By: LOBO Labs 12/28/24 05:06 12/28/24 05:06 Labs: Laboratory Results - last 24 hr 12/28/24 05:06 MCV 77.8 L MCH 23.0 L MCHC 29.5 L RDW 15.4 Plt Count 282 MPV 12.7 H Immature Gran % (Auto) 0.2 Neut % (Auto) 66.7 Lymph % (Auto) 21.0 [place] % (Auto) 8.5 Eos % (Auto) 3.0 Baso % (Auto) 0.6 Lymph # (Auto) 1.0 L [place] # (Auto) 0.4 Eos # (Auto) 0.2 Baso # (Auto) 0.0 Abs Immat Gran (auto) 0.01 Absolute Neuts (auto) 3.3 Absolute Nucleated RBC 0.000 Nucleated RBC % (auto) 0.0 Anion Gap 12 Estim Creat Clear Calc 36.7 Estimated GFR 59 Random Glucose 107 Calcium 9.1 Total Bilirubin 0.2 AST 15 ALT < 6 Alkaline Phosphatase 65 Total Protein 6.3 L Albumin 3.3 L Assessment and Plan (1) Acute blood loss anemia: Status: Acute Plan 79 years old woman with a past medical history significant for GERD, Ford's esophagus, colonic polyps, AVM, hypothyroidism, COPD on home oxygen 2 L/min via nasal cannula, essential hypertension and depression who presents to the emergency department complaining of constipation and was noted to have acute blood loss anemia because of possibly UGIB versus LGIB. ABLA 2/2 unclear etiology in a patient with UGIB- s/p EGD on 12/27/24- Gastritis, stable History of AVMs History of Ford's esophagus History of GERD Patient presented with low hemoglobin levels likely secondary to gastritis as evidenced by EGD on 12/27/2024. Patient appeared to be stable post EGD, initiated on oral PPI She is otherwise hemodynamically stable appearing, no further Melanotic stools while hosp. CBC QAM PPI b.i.d. Hypertensive urgency - she is known to have had multiple episodes of hypertensive urgency necessitating escalating doses of antihypertensives. She is on amlodipine 5 mg at home unclear about compliance. Amlodipine is being increased to 10 mg, initiating lisinopril 5 mg daily, she will need to see PCP for further medication adjustments as she appears to be normotensive right now. Deconditioning PTOT Epilepsy Continue Keppra Depression anxiety Continue home sertraline Clinical decline-continue home memantine Hypothyroidism Continue home levothyroxine DVT prophylaxis with Lovenox Full code This note is constructed using voice recognition software. While every effort has been made to ensure accuracy, professor of oceanography errors may have been included. This patient needs 1 more day inpatient management of an acute upper GI bleed. We will be discharged tomorrow if she remains hemodynamically stable Quality Stroke Does the patient have a stroke diagnosis?: No VTE Prior VTE?: No VTE Risk Level:: Medical - moderate - high VTE Device Contraindication: N/A - Device Ordered VTE Drug Contraindication: N/A - Med Ordered
[2024-12-28 07:39] VITALS: BP 138/74; PULSE 67; RESP 15; TEMP 36.5; O2SAT 100
[2024-12-28] MEDS: 0.9 % Sodium Chloride Flush 3 ML SYRINGE IVFLUSH ×2 (08:11→16:28)
--- NOTE | 2024-12-28 08:47 | HO.POSTANES ---
Post Anesthesia Evaluation Post Anesthesia Evaluation Date of Service: 12/28/24 Vital Signs: Vital Signs Temp Pulse Resp BP Pulse Ox O2 Del Method O2 Flow Rate 12/28/24 07:39 97.7 F 67 15 138/74 100 Nasal Cannula 2 Anesthesia: Monitored Mental Status: Awake Pain Control: Satisfactory Nausea/Vomiting: None Hydration: Adequate Anesthesia-Related Issues: No Anes. Related Issues
[2024-12-28 15:21] VITALS: BP 149/84; PULSE 58; RESP 16; TEMP 36.4; O2SAT 100
--- NOTE | 2024-12-28 15:51 | MHC.CM.PN ---
Addendum entered by Jeannie Silva 12/28/24 15:58: Patient is not able to reach her family for a ride home. She does not have keys to get into her home either. MD notified of barriers to dc today. She may be able to dc once contact is made with her family. Original Note: Per MD patient ready to dc today. [facility] notified of DC (plan was dc tomorrow). Patient is arranging for transportation home..
--- NOTE | 2024-12-28 17:55 | P.DS_ITS ---
DS: Providers Provider Date of Service: 12/28/24 Date of admission: 12/25/24 19:35 Date of discharge: 12/28/24 Primary care physician: Shane Nelson MD Consults: 12/25/24 20:26 Consult to Gastroenterology Routine Consulting Provider: Marco Antonio Dorado Reason for consultation: Worsening anemia, occult blood test positive Has provider been notified: No DS: Diagnosis Discharge Diagnosis (1) Acute blood loss anemia: Status: Acute DS: Summary Hospital Course Hospital Course: 79 years old woman with a past medical history significant for GERD, Ford's esophagus, colonic polyps, AVM, hypothyroidism, COPD on home oxygen 2 L/min via nasal cannula, essential hypertension and depression who presents to the emergency department complaining of constipation and was noted to have acute blood loss anemia because of possibly UGIB versus LGIB. ABLA 2/2 Gastritis UGIB- s/p EGD on 12/27/24- Gastritis, stable History of AVMs History of Ford's esophagus History of GERD Patient presented with low hemoglobin levels (9.8 from baseline in August of Hb 12) with stated melatonic stools. She has significant GI history, hence GI consulted, underwent EGD on 12/27/2024 which revealed Gastritis. Patient appeared to be stable post EGD, initiated on oral PPI , she tolerated oral diet, ambulating well, HDS and at tghe time of DC her Hb was 9.1. Pt has not had further episodes. She is being initiated on Omeprazole OD, Sucralfate PO BID and repeat CBC 2 days and f/up with PCP and GI OP Hypertensive urgency - she is known to have had multiple episodes of hypertensive urgency necessitating escalating doses of antihypertensives. She is on amlodipine 5 mg at home unclear about compliance. Was initially started on IV given npo status for anticipated EGD , however post procedure, Amlodipine was being increased to 10 mg, initiated lisinopril 5 mg daily, she will need to see PCP for further medication adjustments as she appears to be normotensive right now. Low Na diet reenforced. Deconditioning PTOT Epilepsy Continue Keppra Depression anxiety Continue home sertraline Clinical decline-continue home memantine Hypothyroidism Continue home levothyroxine DVT prophylaxis with Lovenox Full code This note is constructed using voice recognition software. 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 Pt was HDS, and to f/up with PCP and GI physician OP setting. Ambulating per PT eval - home with [facility]. Time spent discussing smoking cessation with patient: more than 10 minutes Time Attestation Discharge Coordination Time (in mins): 35 Quality: Safe Use of Opioids Does Pt have an Active Cancer Diagnosis on the Problem List?: No Quality: Stroke Does the patient have a stroke diagnosis?: No Physical Exam Vital Signs: Vital Signs: Last Vital Signs Temp 97.6 F 12/28/24 15:21 Pulse 58 12/28/24 15:21 Resp 16 12/28/24 15:21 BP 149/84 H 12/28/24 15:21 Pulse Ox 100 12/28/24 15:21 O2 Del Method Nasal Cannula 12/28/24 15:21 O2 Flow Rate 2 12/28/24 15:21 Oxygen Flow Rate 2 12/25/24 15:18 BMI result Body Mass Index 21.7 DS: Data Data Completed and Pending Pending studies at discharge: Pending at discharge 12/27/24 15:46 Surgical [PTH] Routine Labs on day of discharge: Laboratory Results - last 24 hr 12/28/24 05:06 WBC 5.0 RBC 3.96 L Hgb 9.1 L Hct 30.8 L MCV 77.8 L MCH 23.0 L MCHC 29.5 L RDW 15.4 Plt Count 282 MPV 12.7 H Immature Gran % (Auto) 0.2 Neut % (Auto) 66.7 Lymph % (Auto) 21.0 [place] % (Auto) 8.5 Eos % (Auto) 3.0 Baso % (Auto) 0.6 Lymph # (Auto) 1.0 L [place] # (Auto) 0.4 Eos # (Auto) 0.2 Baso # (Auto) 0.0 Abs Immat Gran (auto) 0.01 Absolute Neuts (auto) 3.3 Absolute Nucleated RBC 0.000 Nucleated RBC % (auto) 0.0 Sodium 145 Potassium 3.8 Chloride 108 Carbon Dioxide 29 Anion Gap 12 BUN 22 H Creatinine 0.92 Estim Creat Clear Calc 36.7 Estimated GFR 59 Random Glucose 107 Calcium 9.1 Total Bilirubin 0.2 AST 15 ALT < 6 Alkaline Phosphatase 65 Total Protein 6.3 L Albumin 3.3 L Discharge Plan Discharge Anticipated Discharge Date/Time: 12/28/24 17:40 Patient Disposition: Home Health Service Discharge Diagnosis: EGD revealed mild gastritis Referrals: Omar,Shane Miller MD [Primary Care Provider, Internal Medicine] - 1 Week Discharge Medications: New polyethylene glycol 3350 17 gram Powder In Packet 17 g PO TID 30 Days Qty: 30 3RF omeprazole 40 mg Capsule,Delayed Release(Dr/Ec) 40 mg PO DAILY@0630 30 Days Qty: 30 3RF lisinopril 5 mg Tablet 5 mg PO DAILY 30 Days Qty: 30 3RF Protocol: Hold for SBP< HOLD for SBP < : 90 sucralfate 1 gram Tablet 1 g PO BIDAC 30 Days Qty: 60 0RF sennosides-docusate sodium [Senna Plus] 8.6-50 mg Tablet 2 tab PO BEDTIME 30 Days Qty: 60 3RF amlodipine 10 mg Tablet 10 mg PO DAILY 30 Days Qty: 30 3RF Protocol: Hold for SBP< HOLD for SBP < : 90 Continued simvastatin 20 mg tablet 20 mg PO BEDTIME 90 Days Qty: 90 2RF cetirizine 10 mg capsule 10 mg PO BEDTIME Qty: 90 3RF sertraline 50 mg tablet 50 mg PO DAILY Qty: 90 1RF levothyroxine 112 mcg tablet 112 mcg PO DAILY Qty: 90 0RF diphenoxylate-atropine 2.5-0.025 mg tablet 1 - 2 tab PO BID PRN (Reason: Diarrhea) levetiracetam 500 mg tablet 500 mg PO Q12H melatonin 5 mg Capsule 5 mg PO BEDTIME PRN (Reason: Sleep) nystatin [Klayesta] 100,000 unit/gram powder 1 appl topical BID omeprazole 20 mg capsule,delayed release(DR/EC) 20 mg PO DAILY@0630 (DME) blood pressure monitor [Blood Pressure Kit] Kit See Rx Instructions .ROUTE .MEDSUPPLY Qty: 1 0RF Rx Instructions: As directed memantine 10 mg tablet 10 mg PO QPM Qty: 30 2RF (DME) POCKET CHAMBER Spacer See Rx Instructions .Route Qty: 1 0RF Rx Instructions: As directed Discontinued amlodipine 5 mg tablet 5 mg PO DAILY Discharge Orders: Discharge Order (Routine); Ordered 12/28/24 Ordered By: Tita Engle Diet: Low salt diet Activity on Discharge: As tolerated Stand Alone Forms: Patient Portal Discharge page Print Language: Romansh Other Ambulatory Orders: Complete Blood Count Auto Diff (Routine) Timeframe: 2 Days Facility: [facility] - Location: Laboratory Ordered By: Tita Engle Care Plan Goals: CBC X 2 days , follow up with PCP and GI Increased Amlodipine to 10mg Started Lisninopril 5mg - f/up with PCP for uptitration Health Concerns: HDS [facility] services PCP and GI f/up Plan of Treatment: See above BP management Assessment: see above
--- NOTE | 2024-12-28 18:04 | P.F2F_ITS ---
Service Date Service Date: 12/28/24 Encounter Date of encounter: 12/28/24 Reasons for Services Signs and symptoms assessed: as appropriate Reason for physical therapy: home safety and mobility and gait/transfer training Reason for occupational therapy: home safety and mobility, gait/transfer training, ADL training and energy conservation Homebound: Leaving the home is medically contraindicated at this time without the asist of a device and/or another person due th the listed conditions above and below. Reason homebound: unsteady gait / fall risk, fall risk related to blood pressure changes and cognitively impaired / unsafe Certification: Based on the above findings, I certify that this patient is confined to the home and needs intermittent nursing home care, physical therapy and/or speech therapy, or continues to need occupational therapy. The patient is under my care, and I have initiated the establishment of the plan of care. The patient will be followed by a physician who will periodically review the plan of care. Time Spent With Patient Time: Total time managing care of this patient today ____ minutes.
--- NOTE | 2024-12-29 11:18 | OP_ITS ---
DATE OF SERVICE: 12/27/2024 SURGEON: Guillaume Mitchell MD INDICATIONS: GI bleeding. PREOPERATIVE DIAGNOSIS: POSTOPERATIVE DIAGNOSIS: PROCEDURE PERFORMED: Upper endoscopy with biopsy. ESTIMATED BLOOD LOSS: COMPLICATIONS: ANESTHESIA: Monitored anesthesia care. ASSISTANTS: SPECIMENS: DESCRIPTION OF PROCEDURE: A history and physical was performed. The risks and benefits of the procedure were explained to the patient. Informed consent was obtained. The patient was placed in the left lateral decubitus position. The Olympus video gastroscope was introduced into the esophagus, stomach, and duodenum. Examination was performed. The scope was removed. She tolerated the procedure well and was returned to the recovery area in stable condition. FINDINGS: 1. Esophagus: The esophagus was normal. 2. Stomach: The stomach showed some mild gastritis involving the body. No bleeding was identified. Antral biopsies were obtained. 3. Duodenum: The bulb and 2nd portion were normal. No AVMs were identified. IMPRESSION: 1. Gastritis. 2. Probable gastrointestinal blood loss from small bowel AVMs. RECOMMENDATION: 1. Follow up the biopsy results. 2. Consider outpatient capsule endoscopy if anemia persists. MD LUIS Malhotra/JOHN / [phone]
== END 2024-12-28 18:23 | disposition home health service (06) | DRG 378 ==
LOC: HO.ED 19:37 → HO.EDOVER 19:42 → HO.S3 12-26 07:29
PROVIDERS: Internal Medicine Gastroenterology; Physician Assistant Medical; Admitting Provider Internal Medicine; Emergency Provider Emergency Medicine; PCP Internal Medicine; Visit Provider Student in an Organized Health Care Education/Training Program
PROC: 0DJ08ZZ Inspection of Upper Intestinal Tract, Via Natural or Artificial Opening Endoscopic (ICD-10-PCS; CPT 43235; principal; 2024-12-27 15:10)
DX: K29.71 Gastritis, unspecified, with bleeding (principal); D62 Acute posthemorrhagic anemia; K31.811 Angiodysplasia of stomach and duodenum with bleeding; E03.9 Hypothyroidism, unspecified; G40.909 Epilepsy, unspecified, not intractable, without status epilepticus; K59.00 Constipation, unspecified; F41.9 Anxiety disorder, unspecified; R53.81 Other malaise; J44.9 Chronic obstructive pulmonary disease, unspecified; I16.0 Hypertensive urgency; K52.89 Other specified noninfective gastroenteritis and colitis; E78.5 Hyperlipidemia, unspecified; I10 Essential (primary) hypertension; F32.A Depression, unspecified; Z99.81 Dependence on supplemental oxygen; Z79.890 Hormone replacement therapy; Z79.899 Other long term (current) drug therapy
CPT/HCPCS: 36415; 74018; 74177; 80048; 80053; 82272; 82728; 83540; 83735; 84443; 84484; 85014; 85018; 85025; 85027; 85610; 86850; 86900; 86901; 88305; 88313; 88342; 90656; 93005; 97162; 99285; J0360; J2003; J2470; J2704; J7120; Q9967

== ENCOUNTER → 2024-12-25 14:01 | Outpatient (BNV) | payer MEDICARE, SELFPAY | PROVIDERS: Emergency Provider Emergency Medicine; PCP Internal Medicine; Visit Provider Radiology Diagnostic Radiology | DX: K59.00 Constipation, unspecified (principal); R71.0 Precipitous drop in hematocrit; K63.89 Other specified diseases of intestine | CPT/HCPCS: 74177 ==

== ENCOUNTER → 2024-12-25 14:23 | Outpatient (BNV) | payer MEDICARE, SELFPAY | PROVIDERS: Admitting Provider Internal Medicine; Emergency Provider Emergency Medicine; PCP Internal Medicine; Visit Provider Internal Medicine | DX: R00.1 Bradycardia, unspecified (principal) | CPT/HCPCS: 93010 ==

== ENCOUNTER → 2024-12-25 19:35 | Outpatient (BNV) | payer MEDICARE, SELFPAY | PROVIDERS: Admitting Provider Internal Medicine; Emergency Provider Emergency Medicine; PCP Internal Medicine; Visit Provider Internal Medicine | DX: D62 Acute posthemorrhagic anemia (principal) | CPT/HCPCS: 99223; 99232; 99239; 99499; G0180 ==

== ENCOUNTER → 2024-12-25 19:35 | Outpatient (BNV) | payer MEDICARE, SELFPAY | PROVIDERS: Admitting Provider Internal Medicine; Emergency Provider Emergency Medicine; PCP Internal Medicine; Visit Provider Internal Medicine Gastroenterology | DX: K59.00 Constipation, unspecified (principal); K92.2 Gastrointestinal hemorrhage, unspecified; R11.2 Nausea with vomiting, unspecified | CPT/HCPCS: 99222 ==

== ENCOUNTER 2024-12-30 15:42 | Outpatient (REF) | payer MEDICARE, SELFPAY ==
[2024-12-30 15:46] LABS: MANUAL DIFF FLAG NO
[2024-12-30 16:03] LABS: Hematocrit 31.3 % (37.0-47.0); Hemoglobin 9.5 g/dl (12.0-16.0); Imm Gran Abs Auto 0.02 X10*3/uL (0.00-0.03); Imm Gran Pct Auto 0.3 % (0.0-0.4); Lymphocytes Absolute Auto 1.6 X10*3/uL (1.2-4.9); Mean Corpuscular HGB Conc 30.4 g/dl (31.0-35.0); Mean Corpuscular Hemoglobin 23.5 pg (27.0-33.0); Mean Corpuscular Volume 77.3 fL (80.0-98.0); NRBC Abs Auto 0.000 X10*3/uL (0.0-0.012); NRBC Pct Auto 0.0 /100WBC (0.0-0.2); Platelet Count 294 X10*3/uL (160-400); Red Blood Count 4.05 X10*6/uL (4.20-5.50); White Blood Count 5.9 X10*3/uL (4.8-10.8)
== END 2024-12-30 15:43 | disposition home or self-care (01) ==
LOC: HO.HVNA 15:42
PROVIDERS: Visit Provider Internal Medicine
DX: K92.0 Hematemesis (principal)
CPT/HCPCS: 36415; 85025

== ENCOUNTER 2025-01-27 16:37 | Inpatient (IN) | payer MEDICARE, SELFPAY ==
--- NOTE | ~2025-01-27 | XR_ITS ---
CLINICAL HISTORY: constipation Single view of the abdomen. COMPARISON: XR abdomen dated 12/25/24 at 15:00 EDT FINDINGS: Normal bowel distention. Pelvic phleboliths present. Atherosclerotic vascular calcifications. No pneumoperitoneum identified. Mild stool burden. No fracture identified. Osteopenia. [id number] spondylosis. Visualized portions of the lung bases were unremarkable. IMPRESSION: 1. Nonspecific nonobstructive bowel gas pattern. This document has been electronically signed by: Leonardo Dominique MD on 01/27/2025 18:51:11
--- NOTE | ~2025-01-27 | XR_ITS ---
CLINICAL HISTORY: low O2 weak Single view of the chest. COMPARISON: XR chest dated 07/06/24 at 17:10 EDT FINDINGS: Normal heart size. Atherosclerotic thoracic aorta. Hyperinflation. No consolidation. Chronic interstitial thickening, similar to prior imaging. No pneumothorax. No pleural effusion. Marginal osteophytes throughout the thoracic spine. No acute fracture. IMPRESSION: 1. Hyperinflation. No consolidation. This document has been electronically signed by: Leonardo Dominique MD on 01/27/2025 21:04:28
--- NOTE | ~2025-01-27 | CT_ITS ---
CLINICAL HISTORY: occult blood in stool, abd pain, constipation CT abdomen and pelvis with contrast Comparison: CT/REG/SR - CT ABDOMEN PELVIS W IV CON - 12/25/24 17:27 EDT Findings: No consolidation or effusion. Bullous emphysematous changes of the lung bases. Heart size is normal. Marked dilatation of the common duct and proximal intrahepatic ducts, again seen. Gallbladder is absent. Pancreatic duct measures up to 4 mm near the head. Pancreas is otherwise unremarkable. The spleen, adrenal glands are normal. Small bilateral renal cysts are present. No hydronephrosis. Minimal fecal loading in the rectum. There is diffuse rectal wall thickening and perirectal stranding as well as presacral stranding. No wall thickening of the remainder of the large bowel or small bowel. No small bowel obstruction. Stomach is decompressed. Uterus is unremarkable. The bladder is moderately distended and there are large bilateral bladder diverticula. The bones are intact. No free air. IMPRESSION: 1. Diffuse rectal wall thickening and perirectal inflammation concerning for proctitis. Small volume fecal loading in the colon. 2. Dilated urinary bladder with bilateral bladder diverticula which may indicate chronic bladder outlet obstruction. 3. Intra and extrahepatic biliary dilatation with absent gallbladder, likely reservoir effect, unchanged. This document has been electronically signed by: Rasheed Madison MD on 01/27/2025 21:39:42
--- NOTE | 2025-01-27 16:44 | ECG_ITS ---
Test Reason : WEAKNESS Blood Pressure : */* mmHG Vent. Rate : 82 BPM Atrial Rate : 82 BPM P-R Int : 170 ms QRS Dur : 78 ms QT Int : 324 ms P-R-T Axes : 75 70 -18 degrees QTcB Int : 378 ms Sinus rhythm with Premature atrial complexes with Aberrant conduction Minimal voltage criteria for LVH, may be normal variant ( Sokolow-Sanders ) ST & T wave abnormality, consider inferolateral ischemia Abnormal ECG When compared with ECG of 25-Dec-2024 14:23, Aberrant conduction is now Present Non-specific change in ST segment in Inferior leads Non-specific change in ST segment in Lateral leads T wave inversion now evident in Inferior leads T wave inversion now evident in Lateral leads Referred By: Alise Ruiz Electronically Signed By: ALAN PATTON MD
[2025-01-27 16:47] VITALS: BP 130/82; PULSE 70; O2SAT 93
--- NOTE | 2025-01-27 16:48 | ED.GENADULT ---
HPI - General Adult General Chief complaint: Abdominal Pain Stated complaint: Weakness, constipation x4 D PER EMS Time Seen by Provider: 01/27/25 16:41 Source: patient and EMS Mode of arrival: EMS Limitations: no limitations History of Present Illness ED Provider: ALISE RUIZ PA-C HPI narrative: 79-year-old female with pmhx significant for epilepsy, HLD, HTN, chronic hypoxemic respiratory failure secondary to COPD on 2 L supplemental O2, IBS, mood disorder, OA, cognitive impairment, GERD, Ford's esophagus, hypothyroidism presents to the ED today via EMS for evaluation of constipation x7 days. Endorses 1 small hard bowel movement over the last week. She has been taking stool softener at home. Admits to increasing abdominal pain and rectal pain described as a dull aching pressure. Now feeling nauseous, vomiting black emesis. Not on AC. Admits to feeling generally weak. Denies fever, chills, urinary symptoms, chest pain/palpitations, shortness of breath. Related Data Home Medications ?Medication ?Instructions ?Recorded ?Confirmed diphenoxylate-atropine 2.5 1 - 2 tab PO BID PRN Diarrhea 07/07/24 12/29/24 mg-0.025 mg tablet nystatin 100,000 unit/gram topical 1 appl topical BID 08/03/24 12/29/24 powder (Klayesta) omeprazole 20 mg capsule,delayed 20 mg PO DAILY@0630 08/03/24 12/29/24 release melatonin 5 mg capsule 5 mg PO BEDTIME PRN Sleep 12/26/24 12/29/24 Previous Rx's ?Medication ?Instructions ?Recorded blood pressure monitor (Blood #1 ea 05/06/22 Pressure Kit) inhalational spacing device #1 ea 08/18/23 (POCKET CHAMBER spacer) simvastatin 20 mg tablet 20 mg PO BEDTIME 90 days #90 tabs 03/19/24 cetirizine 10 mg capsule 10 mg PO BEDTIME Allergy Symptoms 07/26/24 #90 caps sertraline 50 mg tablet 50 mg PO DAILY #90 tabs 08/06/24 levothyroxine 112 mcg tablet 112 mcg PO DAILY #90 tabs 09/01/24 memantine 10 mg tablet 10 mg PO QPM #30 tabs 10/25/24 amlodipine 10 mg tablet 10 mg PO DAILY 30 days #30 tabs 12/28/24 lisinopril 5 mg tablet 5 mg PO DAILY 30 days #30 tabs 12/28/24 omeprazole 40 mg capsule,delayed 40 mg PO DAILY@0630 30 days #30 12/28/24 release caps polyethylene glycol 3350 17 gram 17 g PO TID 30 days #30 ea 12/28/24 oral powder packet sennosides 8.6 mg-docusate sodium 2 tab PO BEDTIME 30 days #60 tabs 12/28/24 50 mg tablet (Senna Plus) sucralfate 1 gram tablet 1 g PO BIDAC 30 days #60 tabs 12/28/24 levetiracetam 500 mg tablet 500 mg PO Q12H 90 days #180 tabs 01/27/25 Allergies Allergy/AdvReac Type Severity Reaction Status Date / Time amoxicillin (AMOXICILLIN) Allergy Intermediate STOMACH Verified 01/27/25 17:06 ISSUES pollen extracts (POLLEN) Allergy Mild RUNNY Verified 01/27/25 17:06 NOSE, SNEEZING, ITCHY EYES Sulfa (Sulfonamide Allergy Unknown Verified 01/27/25 17:06 Antibiotics) Review of Systems Review of Systems: Yes all other systems are reviewed and are negative [facility] Past Medical History Attestation statement: The following information was validated with the patient. Source: old records reviewed and nursing notes reviewed Medical History Generalized anxiety disorder Nocturnal hypoxemia Acute rhinosinusitis Microscopic hematuria Renal cyst Osteoarthritis, knee COPD (chronic obstructive pulmonary disease) Acute and chronic respiratory failure with hypoxia COPD exacerbation LFT elevation Shortness of breath Rash Bilateral knee pain Hematuria Frequent falls Left-sided back pain Seizure disorder Allergic rhinitis Generalized abdominal pain Anemia Initial Medicare annual wellness visit Screening for osteoporosis Hypoxemia Anemia Syncope Nausea Chronic diarrhea Diarrhea Bile salt-induced diarrhea Cutaneous lupus erythematosus Osteoarthritis Hypertension Vitamin D deficiency COPD (chronic obstructive pulmonary disease) Ford's esophagus GERD (gastroesophageal reflux disease) Hypothyroid Surgical History History of cataract surgery History of rectal surgery History of ear surgery History of cholecystectomy History of eye surgery Family History Family History Father Lymphoma Lung cancer Mother Hypertension Diabetes Sister Brain cancer Social History Social History Household Members: Family Household Members Other:: son, daughter in law, granchildren Housing: House Housing Other:: mobile home Are you a primary animal caretaker to a significant other at home: No Do you presently have visiting nurse or other home services: No Unable to assess alcohol history related to: Unknown Alcohol intake: former Patient Tobacco Use Status: Former Tobacco user Tobacco use type: Cigarette Smoked in Last 30 Days: No e-Cigarette/Vaping Use: Never Used Second Hand Smoke Exposure: Yes Use of substances other than those prescribed or required for medical reasons: Unknown Advance Directives: Yes Advance Directives on File: Yes Advance Directives Date on File: 08/04/23 service: No Current occupational status: retired Cognitive needs: Yes (Walker, Cane) Hearing needs: Yes (hearing aide) Vision needs: Yes (Glasses) Physical Exam ED Vital Signs: Vital Signs - 24 hr 01/27/25 16:49 01/27/25 18:43 01/27/25 20:12 Temperature 98.3 F 98.3 F 98.3 F Pulse Rate 74 85 75 Respiratory Rate 16 16 16 Blood Pressure 154/65 H 148/58 H 164/52 H Pulse Oximetry 94 96 94 Oxygen Delivery Method Nasal Cannula Nasal Cannula Nasal Cannula Oxygen Flow Rate 3 3 3 01/27/25 22:00 Temperature 98.1 F Pulse Rate 78 Respiratory Rate 16 Blood Pressure 168/73 H Pulse Oximetry 100 Oxygen Delivery Method Nasal Cannula Oxygen Flow Rate 3 BMI result Body Mass Index 21.7 vital signs stable General: uncomfortable appearing Skin: Warm, dry, intact. No rashes or lesions. Head: Normocephalic, atraumatic. EENT: Hearing is intact b/l. Conjunctiva clear. Sclera is anicteric. PERRLA. EOM intact. Moist mucous membranes.? Neck: Supple without LAD Cardiac: Chest wall symmetric. RRR Lungs: Normal respiratory effort without accessory muscle use. CTA bilaterally Abdomen: Soft, non-tender, non-distended. No rebound tenderness or guarding. Positive BS x4. Rectal exam performed with PA neno rosales and digital technicianselvin skaggs in room to brickmason contractor. Normal rectal sphincter tone. large aount of palpable soft stool in rectal vault. Stool is dark, black, tarry. OBS positive. Back: No midline spinous or paraspinal tenderness. No step off deformity. Ext: Upper and lower extremities atraumatic, without tenderness, deformity, swelling or erythema Neuro: AOx3. Normal speech Course Course Course Narrative: CBC without leukocytosis or left shift. Normocytic anemia, H and H appears to be stable when compared to priors, upward trending. Above transfusion threshold. Chemistry showing slight hypernatremia to 146, no other acute electrolyte abnormalities requiring intervention. No ISRAEL. Random glucose 133, no anion gap. Liver function at baseline. Troponin WNL. Lipase WNL. KUB showing mild stool burden, no bowel obstruction. Chest x-ray without infiltrate or consolidation, hyper inflation consistent with COPD. CT a/p showing diffuse rectal wall thickening and perirectal inflammation concerning for proctitis with small volume fecal loading in the colon. > OBS positive. stool is black and tarry. concern for possible upper GI bleed. medicated with IV protonix. > she has received IV Tylenol, Zofran, fluids and Flagyl for treatment of proctitis. UA is still pending. > discussed case with hospitalist dr. blas who has accepted patietn admission to medicine for further management + GI consult. patient is agreable. Medications Administered Generic Name Dose Route Start Last Admin Trade Name Freq PRN Reason Stop Dose Admin Ceftriaxone Sodium 1 gm/ 50 mls @ 100 mls/hr 01/27/25 23:00 01/28/25 00:35 Sodium Chloride IV Infused Q24H BRENT Infusion Lactated Ringer's 1,000 mls @ 75 mls/hr 01/27/25 23:30 01/28/25 00:35 Lr IVCONT 01/28/25 12:49 75 mls/hr .[id number] BRENT Administration Levetiracetam 500 mg 01/27/25 23:20 01/27/25 23:57 Levetiracetam 500 Mg Tablet PO 500 mg BID BRENT Administration Sodium Chloride 3 ml 01/28/25 00:00 01/28/25 00:10 0.9 % Sodium Chloride Flush 3 Ml Syringe IVFLUSH Not Given QSHIFT BRENT Discontinued Medications Generic Name Dose Route Start Last Admin Trade Name Freq PRN Reason Stop Dose Admin Sodium Chloride 1,000 mls @ 999 mls/hr 01/27/25 16:45 01/27/25 18:05 Ns IV 01/27/25 17:45 Infused .Q1H1M BRENT Infusion Acetaminophen 1,000 mg in 100 mls @ 400 mls/hr 01/27/25 22:33 01/27/25 22:55 Ofirmev IV 01/27/25 22:47 Infused ONCE ONE Infusion Metronidazole 500 mg in 100 mls @ 100 mls/hr 01/27/25 22:34 01/28/25 00:11 Flagyl IV 01/27/25 23:33 Infused ONCE ONE Infusion Iohexol 100 ml 01/27/25 20:26 01/27/25 20:26 Iohexol 350 Mg/Ml 100 Ml Infus..Btl IV 01/27/25 20:27 85 ml ONCE ONE Administration Ondansetron HCl 4 mg 01/27/25 22:33 01/27/25 22:38 Ondansetron Hcl 4 Mg/2 Ml Vial IVPUSH 01/27/25 22:34 4 mg ONCE ONE Administration Pantoprazole Sodium 40 mg 01/27/25 17:29 01/27/25 17:40 Pantoprazole Sodium 40 Mg/10 Ml Vial IVPUSH 01/27/25 17:30 40 mg ONCE ONE Administration Procedures Rectal Disimpaction Time out performed rectal disimpaction: Yes Indication: fecal impaction Procedural Sedation: No Sedation/Analgesia: none Technique: manual disimpaction with gloved finger Result: significant stool output Patient Tolerated Procedure: well Complications: none Medical Decision Making Medical Decision Making MDM Narrative: 79-year-old female with pmhx significant for epilepsy, HLD, HTN, chronic hypoxemic respiratory failure secondary to COPD on 2 L supplemental O2, IBS, mood disorder, OA, cognitive impairment, GERD, Ford's esophagus, hypothyroidism presents to the ED today via EMS for evaluation of constipation x7 days. vital signs stable. she is uncomfortable appearing. on exam, abdomen is soft, non-tender, non-distended. No rebound tenderness or guarding. Positive BS x4. Rectal exam performed with PA neno rosales and digital technician giles in room to brickmason contractor. Normal rectal sphincter tone. large aount of palpable soft stool in rectal vault. Stool is dark, black, tarry. OBS positive. Differential diagnosis includes constipation, bowel obstruction, fecal impaction, anemia, electrolyte abnormality, upper versus lower GI bleed, hemorrhoids Plan for labs, imaging, UA, re-evaluation. Differential Diagnosis Differential Diagnoses: The differential diagnosis associated with the presentation includes as above. Admission/Observation Consideration of admission/observation: Escalation of care including admission/observation considered Patient admitted to medicine for treatment of proctitis and upper GI bleed Consult Healthcare Provider Management of the patient was discussed with: Hospitalist (dr. blas) Lab Data MDM Lab Attestation statement: I reviewed the patient's lab results. as above. 01/27/25 23:43 01/27/25 17:02 Labs: Lab Results 01/27/25 01/27/25 Range/Units 17:02 17:31 WBC 10.4 (4.8-10.8) X10*3/uL RBC 4.57 (4.20-5.50) X10*6/uL Hgb 11.1 L (12.0-16.0) g/dl Hct 36.6 L (37.0-47.0) % MCV 80.1 (80.0-98.0) fL MCH 24.3 L (27.0-33.0) pg MCHC 30.3 L (31.0-35.0) g/dl RDW 20.3 H (11.0-16.0) % Plt Count 279 (160-400) X10*3/uL MPV 11.5 (9.4-12.3) fL Immature Gran % (Auto) 0.5 H (0.0-0.4) % Neut % (Auto) 86.3 H (45-73) % Lymph % (Auto) 9.4 L (20-40) % [place] % (Auto) 3.0 (2-11) % Eos % (Auto) 0.2 (0-4) % Baso % (Auto) 0.6 (0-2) % Lymph # (Auto) 1.0 L (1.2-4.9) X10*3/uL [place] # (Auto) 0.3 (0.1-1.2) X10*3/uL Eos # (Auto) 0.0 (0.0-0.4) X10*3/uL Baso # (Auto) 0.1 (0.0-0.2) X10*3/uL Abs Immat Gran (auto) 0.05 H (0.00-0.03) X10*3/uL Absolute Neuts (auto) 9.0 H (2.0-8.3) x10*3/uL Absolute Nucleated RBC 0.000 (0.0-0.012) X10*3/uL Nucleated RBC % (auto) 0.0 (0.0-0.2) /100WBC Sodium 146 H (135-145) mmol/L Potassium 3.5 (3.3-5.1) mmol/L Chloride 111 H (96-108) mmol/L Carbon Dioxide 23 (22-29) mmol/L Anion Gap 16 (12-20) BUN 12 (9-16) mg/dL Creatinine 0.94 (0.5-1.4) mg/dL Estim Creat Clear Calc 36.0 Estimated GFR 57 Random Glucose 133 H (60-115) mg/dL Calcium 9.2 (8.4-10.2) mg/dL Magnesium 1.7 (1.6-2.6) mg/dL Total Bilirubin 0.4 (0.0-1.0) mg/dL AST 20 (5-31) U/L ALT 6 (0-31) U/L Alkaline Phosphatase 65 (39-117) U/L Troponin I High Sens 2.7 (<3.5-17.0) ng/L Total Protein 7.0 (6.5-8.0) g/dL Albumin 3.9 (3.5-5.0) g/dL Lipase 19 (8-78) U/L Stool Occult Blood POSITIVE (NEGATIVE) Independent Interpretation I performed an independent interpretation of an: EKG, Plain X-Ray and CT Scan Interpretation: KUB without obstruction CXR without infiltrate or consolidation Radiology Impression Discussion of test interpretation with radiology: I have reviewed the radiologist's reading. Radiologist Impression: Procedure(s): XR chest 1V Accession Number(s): [id number] cc: Shane Nelson MD; Alise Ruiz~ Reason for Exam: low O2 weak CLINICAL HISTORY: low O2 weak Single view of the chest. COMPARISON: XR chest dated 07/06/24 at 17:10 EDT FINDINGS: Normal heart size. Atherosclerotic thoracic aorta. Hyperinflation. No consolidation. Chronic interstitial thickening, similar to prior imaging. No pneumothorax. No pleural effusion. Marginal osteophytes throughout the thoracic spine. No acute fracture. IMPRESSION: 1. Hyperinflation. No consolidation. This document has been electronically signed by: Leonardo Dominique MD on 01/27/2025 21:04:28 Procedure(s): CT abdomen pelvis w IV con Accession Number(s): [id number] cc: Shane Nelson MD; Alise Ruiz~ Report Number: [id number]: Total DLP = 0.00 mGy-cm Reason for Exam: occult blood in stool, abd pain, constipation CLINICAL HISTORY: occult blood in stool, abd pain, constipation CT abdomen and pelvis with contrast Comparison: CT/REG/SR - CT ABDOMEN PELVIS W IV CON - 12/25/24 17:27 EDT Findings: No consolidation or effusion. Bullous emphysematous changes of the lung bases. Heart size is normal. Marked dilatation of the common duct and proximal intrahepatic ducts, again seen. Gallbladder is absent. Pancreatic duct measures up to 4 mm near the head. Pancreas is otherwise unremarkable. The spleen, adrenal glands are normal. Small bilateral renal cysts are present. No hydronephrosis. Minimal fecal loading in the rectum. There is diffuse rectal wall thickening and perirectal stranding as well as presacral stranding. No wall thickening of the remainder of the large bowel or small bowel. No small bowel obstruction. Stomach is decompressed. Uterus is unremarkable. The bladder is moderately distended and there are large bilateral bladder diverticula. The bones are intact. No free air. IMPRESSION: 1. Diffuse rectal wall thickening and perirectal inflammation concerning for proctitis. Small volume fecal loading in the colon. 2. Dilated urinary bladder with bilateral bladder diverticula which may indicate chronic bladder outlet obstruction. 3. Intra and extrahepatic biliary dilatation with absent gallbladder, likely reservoir effect, unchanged. This document has been electronically signed by: Rasheed Madison MD on 01/27/2025 21:39:42 Procedure(s): XR KUB Accession Number(s): [id number] cc: Shane Nelson MD; Alise Ruiz~ Reason for Exam: constipation CLINICAL HISTORY: constipation Single view of the abdomen. COMPARISON: XR abdomen dated 12/25/24 at 15:00 EDT FINDINGS: Normal bowel distention. Pelvic phleboliths present. Atherosclerotic vascular calcifications. No pneumoperitoneum identified. Mild stool burden. No fracture identified. Osteopenia. [id number] spondylosis. Visualized portions of the lung bases were unremarkable. IMPRESSION: 1. Nonspecific nonobstructive bowel gas pattern. This document has been electronically signed by: Leonardo Dominique MD on 01/27/2025 18:51:11 Independent Historian Clinical information obtained from an independent historian. History obtained from or confirmed by: EMS External Record Review External record reviewed: Inpatient record, Office record, Outpatient record and Prior outpatient labs Prescription Management I considered prescription management with: Pain Medication and Antibiotic Chronic Conditions Patient?s care impacted by: Other (Constipation) Social Determinants Patient?s care significantly limited by Social Determinants of Health including: Other Social Determinant of Health Critical Care Time Critical Care Time Critical Care Time: Yes Total Critical Care Time: 42 Attestation: Critical care time in the amount of 42 minutes has been provided to the patient in terms of direct patient care, frequent reevaluation, consultation with hospitalist, review and interpretation of medical data and results, and management of potentially life-threatening conditions. This is all outside of any medical procedures. Discharge Plan Discharge Clinical Impression: Acute proctitis, Black stool Patient Disposition: Admitted As Inpatient
[2025-01-27 16:49] VITALS: BP 154/65; PULSE 74; RESP 16; TEMP 36.8; O2SAT 94
[2025-01-27 17:04] VITALS: BMI 21.7
[2025-01-27 17:06] LABS: MANUAL DIFF FLAG NO
[2025-01-27 17:07] LABS: Hematocrit 36.6 % (37.0-47.0); Hemoglobin 11.1 g/dl (12.0-16.0); Imm Gran Abs Auto 0.05 X10*3/uL (0.00-0.03); Imm Gran Pct Auto 0.5 % (0.0-0.4); Lymphocytes Absolute Auto 1.0 X10*3/uL (1.2-4.9); Mean Corpuscular HGB Conc 30.3 g/dl (31.0-35.0); Mean Corpuscular Hemoglobin 24.3 pg (27.0-33.0); Mean Corpuscular Volume 80.1 fL (80.0-98.0); NRBC Abs Auto 0.000 X10*3/uL (0.0-0.012); NRBC Pct Auto 0.0 /100WBC (0.0-0.2); Platelet Count 279 X10*3/uL (160-400); Red Blood Count 4.57 X10*6/uL (4.20-5.50); White Blood Count 10.4 X10*3/uL (4.8-10.8)
--- NOTE | 2025-01-27 17:07 | MHC.EDTECH ---
Patient was problem fixed first as she can not lay on her back for the EKG
[2025-01-27 17:24] LABS: Alanine Aminotransferase 6 U/L (0-31); Albumin Level 3.9 g/dL (3.5-5.0); Alkaline Phosphatase 65 U/L (39-117); Anion Gap 16 (12-20); Aspartate Amino Transferase 20 U/L (5-31); Blood Urea Nitrogen 12 mg/dL (9-16); Calcium 9.2 mg/dL (8.4-10.2); Carbon Dioxide 23 mmol/L (22-29); Chloride 111 mmol/L (96-108); Creatinine Clr Calc Pharmacy 36.0; Estimated Glomerular Filt Rate 57; Lipase 19 U/L (8-78); Magnesium 1.7 mg/dL (1.6-2.6); Potassium 3.5 mmol/L (3.3-5.1); Sodium 146 mmol/L (135-145); Total Protein 7.0 g/dL (6.5-8.0)
[2025-01-27 17:37] LABS: OBS Int Ctl Valid YES; OBS1 POSITIVE (NEGATIVE)
[2025-01-27 18:41] LABS: Troponin-I High Sensitivity 2.7 ng/L (<3.5-17.0)
[2025-01-27 18:43] VITALS: BP 148/58; PULSE 85; RESP 16; TEMP 36.8; O2SAT 96
--- NOTE | 2025-01-27 18:48 | MHC.EDTECH ---
Patient inc stool therefore patient changed and repositioned
--- NOTE | 2025-01-27 19:32 | PC.NURSE ---
Took over care at 19:00 pt is sleeping at this time, no sign of distress.
[2025-01-27 20:12] VITALS: BP 164/52; PULSE 75; RESP 16; TEMP 36.8; O2SAT 94
--- NOTE | 2025-01-27 20:13 | MHC.EDTECH ---
Patient inc therefore patient changed and repositioned
[2025-01-27] MEDS: iohexoL 350 MG/ML 100 ML INFUS..BTL IV (20:26)
[2025-01-27 22:00] VITALS: BP 168/73; PULSE 78; RESP 16; TEMP 36.7; O2SAT 100
--- NOTE | 2025-01-27 22:15 | PC.NURSE ---
pt resting in bed no sign of distress, awaiting deposition.
--- NOTE | 2025-01-27 22:53 | P.HPHOSP_ITS ---
History of Present Illness Date of Service: 01/27/25 Attending physician on admission: Master Castellanos Chief Complaint: impaction Patient is an 79 year female with a history significant epilepsy, hyperlipidemia, hypertension, chronic respiratory failure with hypoxia, COPD on 2 L at baseline, IBS, mood disorder, oa, cognitive impairment, Ford's esophagus and hypothyroid, who presented to the ED due to nausea, hematemesis, constipation and abdominal pain. The patient reports that she has impacted. She has not had a bowel movement x7 days. She has had a few episodes of hematemesis and reports melena as well as hematochezia. She denies any chest pain, shortness of breath, URI symptoms or urinary symptoms including frequency, urgency or dysuria. The patient is a poor historian. Review of Systems 2 Constitutional: Constitutional: Denies chills, Denies fatigue, Denies fever(s) and Denies headache(s) Eyes: Eyes: Denies change in vision ENT: Denies headache(s), Denies nasal congestion and Denies sore throat Cardiovascular: Cardiovascular: Denies chest pain, Denies rapid heart rate, Denies leg edema, Denies lightheadedness and Denies dyspnea Respiratory: Respiratory: Denies cough, Denies dyspnea and Denies wheezing Gastrointestinal: Gastrointestinal: Reports as per HPI Genitourinary: Genitourinary: Denies dysuria and Denies urinary urgency Musculoskeletal: Musculoskeletal: Denies myalgias Integumentary/Breasts: Skin/Breast: Denies rash Neurologic: Denies confusion and Denies headache(s) Psychiatric: Psychiatric: Denies confusion Endocrine: Endocrine: Denies fatigue Hematologic/Lymphatic: Hematologic/Lymphatic: Denies easy bleeding and Denies easy bruising Allergic/Immunologic: Allergic/Immunologic: Denies wheezing [facility] Medical History Generalized anxiety disorder Nocturnal hypoxemia Acute rhinosinusitis Microscopic hematuria Renal cyst Osteoarthritis, knee COPD (chronic obstructive pulmonary disease) Acute and chronic respiratory failure with hypoxia COPD exacerbation LFT elevation Shortness of breath Rash Bilateral knee pain Hematuria Frequent falls Left-sided back pain Seizure disorder Allergic rhinitis Generalized abdominal pain Anemia Initial Medicare annual wellness visit Screening for osteoporosis Hypoxemia Anemia Syncope Nausea Chronic diarrhea Diarrhea Bile salt-induced diarrhea Cutaneous lupus erythematosus Osteoarthritis Hypertension Vitamin D deficiency COPD (chronic obstructive pulmonary disease) Ford's esophagus GERD (gastroesophageal reflux disease) Hypothyroid Family History Father Lymphoma Lung cancer Mother Hypertension Diabetes Sister Brain cancer Surgical History History of cataract surgery History of rectal surgery History of ear surgery History of cholecystectomy History of eye surgery Social History Household Members: Family Household Members Other:: son, daughter in law, granchildren Housing: House Housing Other:: mobile home Are you a primary wound care rn to a significant other at home: No Do you presently have visiting nurse or other home services: No Unable to assess alcohol history related to: Unknown Alcohol intake: former Patient Tobacco Use Status: Former Tobacco user Tobacco use type: Cigarette Smoked in Last 30 Days: No e-Cigarette/Vaping Use: Never Used Second Hand Smoke Exposure: Yes Use of substances other than those prescribed or required for medical reasons: Unknown Advance Directives: Yes Advance Directives on File: Yes Advance Directives Date on File: 08/04/23 service: No Current occupational status: retired Cognitive needs: Yes (Walker, Cane) Hearing needs: Yes (hearing aide) Vision needs: Yes (Glasses) Meds Allergies Allergy/AdvReac Type Severity Reaction Status Date / Time amoxicillin (AMOXICILLIN) Allergy Intermediate STOMACH Verified 01/27/25 17:06 ISSUES pollen extracts (POLLEN) Allergy Mild RUNNY Verified 01/27/25 17:06 NOSE, SNEEZING, ITCHY EYES Sulfa (Sulfonamide Allergy Unknown Verified 01/27/25 17:06 Antibiotics) Active Medications: Current Medications Metronidazole (Flagyl) 500 mg in 100 mls @ 100 mls/hr IV ONCE ONE Stop: 01/27/25 23:33 Home Medications ?Medication ?Instructions ?Recorded ?Confirmed ?Last Taken ?Type diphenoxylate-atropine 2.5 1 - 2 tab PO BID PRN Diarrh ea 07/07/24 12/29/24 08/02/24 History mg-0.025 mg tablet nystatin 100,000 unit/gram topical 1 appl topical BID 08/03/24 12/29/24 12/24/24 History powder (Klayesta) omeprazole 20 mg capsule,delayed 20 mg PO DAILY@0630 0 08/03/24 12/29/24 08/02/24 History release melatonin 5 mg capsule 5 mg PO BEDTIME PRN Sleep 12/29/24 12/24/24 History Physical Exam 2 Vital Signs and Narrative: Vital Signs: Last Vital Signs Temp 98.3 F 01/27/25 20:12 Pulse 75 01/27/25 20:12 Resp 16 01/27/25 20:12 BP 164/52 H 01/27/25 20:12 Pulse Ox 94 01/27/25 20:12 O2 Del Method Nasal Cannula 01/27/25 20:12 O2 Flow Rate 3 01/27/25 20:12 BMI result Body Mass Index 21.7 General: AOx3, no acute distress, mild cognitive impairment Resp: CTA bilaterally CVS: S1, S2, RRR GI: +BS, NT, no distention Skin: Warm, dry Neuro: Cranial nerves II-XII grossly intact bilaterally. Motor grossly intact bilaterally Extremities: No pitting edema Psych: Appropriate affect Const: General: No confusion Orientation/consciousness: No confusion Neuro: General: No confusion Results Labs 01/27/25 17:02 01/27/25 17:02 Labs: Laboratory Results - last 24 hr 01/27/25 01/27/25 17:02 17:31 MCV 80.1 MCH 24.3 L MCHC 30.3 L RDW 20.3 H Plt Count 279 MPV 11.5 Immature Gran % (Auto) 0.5 H Neut % (Auto) 86.3 H Lymph % (Auto) 9.4 L [facility] % (Auto) 3.0 Eos % (Auto) 0.2 Baso % (Auto) 0.6 Lymph # (Auto) 1.0 L [facility] # (Auto) 0.3 Eos # (Auto) 0.0 Baso # (Auto) 0.1 Abs Immat Gran (auto) 0.05 H Absolute Neuts (auto) 9.0 H Absolute Nucleated RBC 0.000 Nucleated RBC % (auto) 0.0 Anion Gap 16 Estim Creat Clear Calc 36.0 Estimated GFR 57 Random Glucose 133 H Calcium 9.2 Magnesium 1.7 Total Bilirubin 0.4 AST 20 ALT 6 Alkaline Phosphatase 65 Troponin I High Sens 2.7 Total Protein 7.0 Albumin 3.9 Lipase 19 Stool Occult Blood POSITIVE Assessment and Plan (1) GI bleed: Status: Acute (2) Hematemesis: Status: Acute (3) Positive occult stool blood test: Status: Acute (4) Acute proctitis: Status: Acute Plan Patient is an 79 year female with a history significant epilepsy, hyperlipidemia, hypertension, chronic respiratory failure with hypoxia, COPD on 2 L at baseline, IBS, mood disorder, oa, cognitive impairment, Ford's esophagus and hypothyroid, who presented to the ED due to nausea, hematemesis, constipation and abdominal pain. GI bleed, hematemesis, +OBS - H+H stable, monitor - GI consult - PPI acute proctitis - flagyl and ceftriaxone - GI consult - IVF dilated bile ducts, likely chronic from [place] - general surgery consult - monitor LFTs epilepsy - keppra HLD - statin HTN - continue home therapies chronic respiratory failure with hypoxia, severe COPD, no acute exacerbation - continue home therapies IBS - hold lomotil mood disorder - continue home therapies hypothyoid - levothyroxine med rec pending full code VTE prophy: SCDs Patient with GI bleed, requiring admission for at least 2 midnight stay for further evaluation and monitoring. Quality Stroke Does the patient have a stroke diagnosis?: No VTE Prior VTE?: No VTE Risk Level:: Medical - moderate - high VTE Device Contraindication: N/A - Device Ordered VTE Drug Contraindication: Treatment Not Indicated
--- NOTE | 2025-01-27 22:53 | MHC.EDTECH ---
Patient inc therefore patient changed and repositioned
[2025-01-27] MEDS: metroNIDAZOLE/NS 500 MG/100 ML PIGGYBACK 100 MG IV (23:04)
[2025-01-28 00:04] LABS: Hematocrit 32.5 % (37.0-47.0); Hemoglobin 9.8 g/dl (12.0-16.0); Mean Corpuscular HGB Conc 30.2 g/dl (31.0-35.0); Mean Corpuscular Hemoglobin 24.4 pg (27.0-33.0); Mean Corpuscular Volume 80.8 fL (80.0-98.0); NRBC Abs Auto 0.000 X10*3/uL (0.0-0.012); NRBC Pct Auto 0.0 /100WBC (0.0-0.2); Platelet Count 213 X10*3/uL (160-400); Red Blood Count 4.02 X10*6/uL (4.20-5.50); White Blood Count 10.2 X10*3/uL (4.8-10.8)
--- NOTE | 2025-01-28 00:07 | PC.NURSE ---
medicated per jun. pt repositioned for comfort.
[2025-01-28] MEDS: Lactated Ringers 1,000 ML 75 ML IVCONT (00:35)
--- NOTE | 2025-01-28 00:42 | PC.NURSE ---
fluids started per mar.
[2025-01-28 01:02] LABS: Neutrophils Absolute Manual 10.2 X10*3/uL (2.0-8.3); Neutrophils Percent Manual 62 % (45-73)
[2025-01-28 01:03] LABS: RBC Morphology NORMAL
[2025-01-28 01:06] LABS: Large Platelet PRESENT; Schistocytes 2+ (3-5) /OIF
--- NOTE | 2025-01-28 01:07 | PC.NURSE ---
report given to CHARO Salcido in overflow.
[2025-01-28 01:12] LABS: Band Neutrophils Percent 38 % (3-5)
[2025-01-28 01:55] VITALS: BP 161/72; PULSE 65; RESP 20; TEMP 36.5; O2SAT 100
[2025-01-28 04:42] VITALS: BP 167/65; PULSE 64; RESP 18; TEMP 36.8; O2SAT 100
[2025-01-28 05:06] LABS: Alanine Aminotransferase 9 U/L (0-31); Albumin Level 3.1 g/dL (3.5-5.0); Alkaline Phosphatase 55 U/L (39-117); Anion Gap 11 (12-20); Aspartate Amino Transferase 31 U/L (5-31); Blood Urea Nitrogen 11 mg/dL (9-16); Calcium 8.2 mg/dL (8.4-10.2); Carbon Dioxide 23 mmol/L (22-29); Chloride 111 mmol/L (96-108); Creatinine Clr Calc Pharmacy 42.8; Estimated Glomerular Filt Rate > 60; Potassium 4.0 mmol/L (3.3-5.1); Sodium 141 mmol/L (135-145); Total Protein 5.7 g/dL (6.5-8.0)
[2025-01-28 05:54] LABS: Hematocrit 33.2 % (37.0-47.0); Hemoglobin 9.9 g/dl (12.0-16.0); Mean Corpuscular HGB Conc 29.8 g/dl (31.0-35.0); Mean Corpuscular Hemoglobin 24.5 pg (27.0-33.0); Mean Corpuscular Volume 82.2 fL (80.0-98.0); NRBC Abs Auto 0.000 X10*3/uL (0.0-0.012); NRBC Pct Auto 0.0 /100WBC (0.0-0.2); Platelet Count 229 X10*3/uL (160-400); Red Blood Count 4.04 X10*6/uL (4.20-5.50); White Blood Count 8.4 X10*3/uL (4.8-10.8)
--- NOTE | 2025-01-28 07:28 | PC.NURSE ---
Arrived to ED overflow via stretcher at approx 0130.? Pt A&O x 4. FELIPE. Able to follow commands. Able to make needs known. IVF running per MAR. O2 via NC at 3LPM. Call rojas in reach. Fall precautions in place. See flowsheets, worklist tasks, and MAR for more info. Plan of care ongoing.?
[2025-01-28 08:00] VITALS: BP 159/75; PULSE 61; RESP 16; TEMP 36.6; O2SAT 100
--- NOTE | 2025-01-28 10:12 | PM.CNGS ---
History of Present Illness Consult details Consult date: 01/28/25 <Lynette Sandoval PA-C - Last Filed: 01/28/25 11:09> Reason for consult: other (dilated biliary ducts) <FAYE Potts Last Filed: 01/28/25 11:09> Requesting physician: Yoko De Leon <FAYE Potts Last Filed: 01/28/25 11:09> Narrative: 79 year female with PMH significant for epilepsy, hyperlipidemia, hypertension, chronic respiratory failure, COPD on 2 L, IBS, cognitive impairment, Ford's esophagus and hypothyroid who presented to the ED with complaints of vomiting, rectal pain and constipation. She reported no significant BM for 7 days and only had one very small hard bowel movement over the last week. She has been taking stool softener at home. She is unsure what else she gets as her family manages her meds. She then developed rectal pain and discomfort and then began vomiting which turned to black emesis. Work up in the ED included CBC, BMP, LFTs. Presenting H/H was above her prior levels from her past recent admission for UGI with gastritis. CT scan abd pelvis was obtained which showed diffuse rectal wall thickening and perirectal inflammation concerning for proctitis, intra and extrahepatic biliary dilatation with absent gallbladder, similar to prior scans. She was disimpacted in the ED and has had a few loose stools. She reports feeling less rectal pressure and feels better. She had an open cholecystectomy in her 30s. She denies any RUQ pain. <FAYE Potts Last Filed: 01/28/25 11:09> Review of Systems Constitutional: Constitutional: Denies chills and Denies fever(s) <FAYE Potts Last Filed: 01/28/25 11:09> Cardiovascular: Cardiovascular: Denies chest pain and Denies dyspnea <FAYE Potts Last Filed: 01/28/25 11:09> Respiratory: Respiratory: Denies dyspnea <FAYE Potts Last Filed: 01/28/25 11:09> Gastrointestinal: Gastrointestinal: Reports as per HPI <FAYE Potts Filed: 01/28/25 11:09> [facility] Past Medical History Medical History: Medical History Generalized anxiety disorder Nocturnal hypoxemia Acute rhinosinusitis Microscopic hematuria Renal cyst Osteoarthritis, knee COPD (chronic obstructive pulmonary disease) Acute and chronic respiratory failure with hypoxia COPD exacerbation LFT elevation Shortness of breath Rash Bilateral knee pain Hematuria Frequent falls Left-sided back pain Seizure disorder Allergic rhinitis Generalized abdominal pain Anemia Initial Medicare annual wellness visit Screening for osteoporosis Hypoxemia Anemia Syncope Nausea Chronic diarrhea Diarrhea Bile salt-induced diarrhea Cutaneous lupus erythematosus Osteoarthritis Hypertension Vitamin D deficiency COPD (chronic obstructive pulmonary disease) Ford's esophagus GERD (gastroesophageal reflux disease) Hypothyroid <Lynette Sandoval PA-C - Last Filed: 01/28/25 11:09> Family History Family History: Family History Father Lymphoma Lung cancer Mother Hypertension Diabetes Sister Brain cancer <Lynette Sandoval PA-C - Last Filed: 01/28/25 11:09> Surgical History Surgical History: Surgical History History of cataract surgery History of rectal surgery History of ear surgery History of cholecystectomy History of eye surgery <FAYE Potts Last Filed: 01/28/25 11:09> Social History Social History: Social History Household Members: Family Household Members Other:: son, daughter in law, granchildren Housing: House Housing Other:: mobile home Are you a primary nurse care manager to a significant other at home: No Do you presently have visiting nurse or other home services: No Unable to assess alcohol history related to: Unknown Alcohol intake: former Patient Tobacco Use Status: Former Tobacco user Tobacco use type: Cigarette Smoked in Last 30 Days: No e-Cigarette/Vaping Use: Never Used Second Hand Smoke Exposure: Yes Use of substances other than those prescribed or required for medical reasons: Unknown Advance Directives: Yes Advance Directives on File: Yes Advance Directives Date on File: 08/04/23 Nutrition Risks: No Nutritional Risk service: No Current occupational status: retired Cognitive needs: Yes (Walker, Cane) Hearing needs: Yes (hearing aide) Vision needs: Yes (Glasses) <Lynette Sandoval PA-C - Last Filed: 01/28/25 11:09> Meds Allergies/Adverse reactions: Allergies Allergy/AdvReac Type Severity Reaction Status Date / Time amoxicillin (AMOXICILLIN) Allergy Intermediate STOMACH Verified 01/27/25 17:06 ISSUES pollen extracts (POLLEN) Allergy Mild RUNNY Verified 01/27/25 17:06 NOSE, SNEEZING, ITCHY EYES Sulfa (Sulfonamide Allergy Unknown Verified 01/27/25 17:06 Antibiotics) <FAYE Potts Last Filed: 01/28/25 11:09> Active Medications: Current Medications Acetaminophen (Acetaminophen 325 Mg Tablet) 650 mg PO Q6H PRN PRN Reason: Pain, Mild 1-3,fever,headache Bisacodyl (Bisacodyl 5 Mg Tablet.Dr) 10 mg PO BEDTIME [facility] Calcium Carbonate (Calcium Carbonate 750 Mg Tab.Chew) 750 mg PO Q4H PRN PRN Reason: Heartburn Ceftriaxone Sodium 1 gm/ (Sodium Chloride) 50 mls @ 100 mls/hr IV Q24H [facility] Last Infusion: 01/28/25 00:35 Dose: Infused Lactated Ringer's (Lr) 1,000 mls @ 75 mls/hr IVCONT .[id number] [facility] Stop: 01/28/25 12:49 Last Admin: 01/28/25 00:35 Dose: 75 mls/hr Levetiracetam (Levetiracetam 500 Mg Tablet) 500 mg PO BID [facility] Last Admin: 01/28/25 08:22 Dose: 500 mg Levothyroxine Sodium (Levothyroxine Sodium 112 Mcg Tablet) 112 mcg PO DAILY@0600 [facility] Last Admin: 01/28/25 08:22 Dose: 112 mcg Magnesium Hydroxide (Milk Of Magnesia 30 Ml Oral.Susp) 30 ml PO DAILY PRN PRN Reason: Constipation Melatonin (Melatonin 3 Mg Tablet) 6 mg PO BEDTIME PRN PRN Reason: Insomnia Ondansetron HCl (Ondansetron Hcl 4 Mg/2 Ml Vial) 4 mg IVPUSH Q8H PRN PRN Reason: Nausea and Vomiting Oxycodone HCl (Oxycodone Hcl Immed Release 5 Mg Tablet) 5 mg PO Q6H PRN PRN Reason: Pain, Severe (Pain Scale 7-10) Pantoprazole Sodium (Pantoprazole Sodium 40 Mg/10 Ml Vial) 40 mg IVPUSH DAILY@0630 [facility] Last Admin: 01/28/25 06:30 Dose: 40 mg Polyethylene Glycol (Polyethylene Glycol 3350 17 Gm Powd.Pack) 17 gm PO BID [facility] Senna/Docusate Sodium (Sennosides/Docusate Sodium Tablet) 2 tab PO BID [facility] Sodium Chloride (0.9 % Sodium Chloride Flush 3 Ml Syringe) 3 ml IVFLUSH QSHIFT [facility] Last Admin: 01/28/25 08:40 Dose: Not Given Tramadol HCl (Tramadol Hcl 50 Mg Tablet) 50 mg PO Q6H PRN PRN Reason: Pain, Moderate(Pain Scale 4-6) <Lynette Sandoval PA-C - Last Filed: 01/28/25 11:09> Home medications: Home Medications ?Medication ?Instructions ?Recorded ?Confirmed ?Last Taken ?Type diphenoxylate-atropine 2.5 1 - 2 tab PO BID PRN Diarrhea 07/07/24 01/28/25 01/26/25 History mg-0.025 mg tablet levothyroxine 112 mcg tablet 112 mcg PO DAILY@0600 01/28/25 01/28/25 01/26/25 History memantine 10 mg tablet 10 mg PO BEDTIME 01/28/25 01/28/25 01/26/25 History omeprazole 40 mg capsule,delayed 40 mg PO BID@0630,1630 01/28/25 01/28/25 01/26/25 History release <FAYE Potts Last Filed: 01/28/25 11:09> Physical Exam Vital Signs: Vital Signs: Last Vital Signs Temp 97.8 F 01/28/25 08:00 Pulse 61 01/28/25 08:00 Resp 16 01/28/25 08:00 BP 159/75 H 01/28/25 08:00 Pulse Ox 100 01/28/25 08:00 O2 Del Method Nasal Cannula 01/28/25 08:00 O2 Flow Rate 3 01/28/25 08:00 BMI result Body Mass Index 21.7 <FAYE Potts Last Filed: 01/28/25 11:09> Const: General: comfortable, no acute distress and alert <Lynette Reddydeau FAYE - Last Filed: 01/28/25 11:09> Resp: Effort & Inspection: normal respiratory effort and not tachypneic <Lynette Sandoval FAYE - Last Filed: 01/28/25 11:09> GI: Other: soft, nondistended mild LLQ tenderness <Lynette Reddydeau FAYE - Last Filed: 01/28/25 11:09> Inspection: Yes scar (midline supra and infraumbilical) <Lynette Reddydeau FAYE - Last Filed: 01/28/25 11:09> Palpation (GI): no guarding <Lynette Reddydeau FAYE - Last Filed: 01/28/25 11:09> Percussion: Yes normal to percussion <Lynette Reddydeau FAYE - Last Filed: 01/28/25 11:09> Skin: Other: warm and dry <Lynette Reddydeau FAYE - Last Filed: 01/28/25 11:09> General skin exam: no jaundice <Lynette Reddydeau FAYE Chua Last Filed: 01/28/25 11:09> Results Labs Result diagrams: 01/28/25 04:39 01/28/25 04:39 <Lynette Reddydeau FAYE - Last Filed: 01/28/25 11:09> Labs: Abnormal lab results 01/27/25 01/27/25 01/28/25 Range/Units 17:02 23:43 04:39 RBC 4.02 L 4.04 L (4.20-5.50) X10*6/uL Hgb 11.1 L 9.8 L 9.9 L (12.0-16.0) g/dl Hct 36.6 L 32.5 L 33.2 L (37.0-47.0) % MCH 24.3 L 24.4 L 24.5 L (27.0-33.0) pg MCHC 30.3 L 30.2 L 29.8 L (31.0-35.0) g/dl RDW 20.3 H 20.1 H 20.3 H (11.0-16.0) % MPV 12.8 H (9.4-12.3) fL Immature Gran % (Auto) 0.5 H (0.0-0.4) % Neut % (Auto) 86.3 H (45-73) % Lymph % (Auto) 9.4 L (20-40) % Lymph # (Auto) 1.0 L (1.2-4.9) X10*3/uL Abs Immat Gran (auto) 0.05 H (0.00-0.03) X10*3/uL Absolute Neuts (auto) 9.0 H (2.0-8.3) x10*3/uL Band Neutrophils % 38 H (3-5) % Abs Neuts (Manual) 10.2 H (2.0-8.3) X10*3/uL Sodium 146 H (135-145) mmol/L Chloride 111 H 111 H (96-108) mmol/L Anion Gap 11 L (12-20) Random Glucose 133 H (60-115) mg/dL Calcium 8.2 L D (8.4-10.2) mg/dL Total Protein 5.7 L (6.5-8.0) g/dL Albumin 3.1 L (3.5-5.0) g/dL Short CBC 01/27/25 01/27/25 01/28/25 Range/Units 17:02 23:43 04:39 WBC 10.4 10.2 8.4 (4.8-10.8) X10*3/uL Hgb 11.1 L 9.8 L 9.9 L (12.0-16.0) g/dl Hct 36.6 L 32.5 L 33.2 L (37.0-47.0) % Plt Count 279 213 229 (160-400) X10*3/uL BMP 01/27/25 01/28/25 17:02 04:39 Sodium 146 H 141 Potassium 3.5 4.0 Chloride 111 H 111 H Carbon Dioxide 23 23 BUN 12 11 Creatinine 0.94 0.79 Calcium 9.2 8.2 L D Liver Function 01/27/25 01/28/25 Range/Units 17:02 04:39 Total Bilirubin 0.4 0.3 (0.0-1.0) mg/dL AST 20 31 (5-31) U/L ALT 6 9 (0-31) U/L Alkaline Phosphatase 65 55 (39-117) U/L Albumin 3.9 3.1 L (3.5-5.0) g/dL All other labs normal. <Lynette Sandoval PA-C - Last Filed: 01/28/25 11:09> Imaging Abdomen CT scan report/results: report reviewed and image reviewed <Lynette Sandoval PA-C Harshil Last Filed: 01/28/25 11:09> Additional studies: labs reviewed <FAYE Potts Last Filed: 01/28/25 11:09> Assessment and Plan (1) Dilated cbd, acquired: Status: Acute <Lynette Sandoval PA-C Harshil Last Filed: 01/28/25 11:09> 79 year female with PMH significant for epilepsy, hyperlipidemia, hypertension, chronic respiratory failure, COPD on 2 L, IBS, cognitive impairment, Ford's esophagus and hypothyroid presenting with constipation, rectal pain and vomiting. She was admitted to medicine for further treatment of her multiple acute issues. She had a large, hard stool burden and was disimpacted in the ED, now with loose stools. CT scan shows procitis and she was started on flagyl and ceftriaxone. She needs a good home bowel regimen including fiber supplementation. She was also found to have dilated biliary ducts; this appears chronic and it appears similar to her past imaging. She is s/p cholecystectomy. She appears to be asymptomatic from this and her LFTs are normal but would recommend MRI to assess for pancreatic mass as they are significantly dilated. <Lynette Sandoval PA-C - Last Filed: 01/28/25 11:09> 79 year female with PMH significant for epilepsy, hyperlipidemia, hypertension, chronic respiratory failure, COPD on 2 L, IBS, cognitive impairment, Ford's esophagus and hypothyroid presenting with constipation, rectal pain and vomiting. She was admitted to medicine for further treatment of her multiple acute issues. She had a large, hard stool burden and was disimpacted in the ED, now with loose stools. CT scan shows procitis and she was started on flagyl and ceftriaxone. She needs a good home bowel regimen including fiber supplementation. She was also found to have dilated biliary ducts; this appears chronic and it appears similar to her past imaging. She is s/p cholecystectomy. She appears to be asymptomatic from this and her LFTs are normal but would recommend MRI to assess for pancreatic mass as they are significantly dilated. Patient seen and examined and I agree with the above assessment and plan. Persistent dilated CBD but seems larger now. MRCP recommended. <Giles Dejesus MD - Last Filed: 01/28/25 12:38> Procedures Date of Service Date of Service: 01/28/25 <Lynette Sandoval PA-C - Last Filed: 01/28/25 11:09> 01/28/25 <Giles Dejesus MD - Last Filed: 01/28/25 12:38>
--- NOTE | 2025-01-28 10:26 | PHA.MEDREC ---
Addendum entered by Rodolfo Lance PharmD 01/28/25 10:54: [facility] reviewed. Son Kendrick confirmed memantine is only at bedtime. Patient is no longer taking sucralfate. Original Note: Pharmacy Consult ? Medication Reconciliation Pharmacy has completed the medication reconciliation. Spoke to patient son Kendrick over the phone to confirm med list. Son states Patient in not taking Melatonin 5 mg, Nystatin and miralax. Patient last had her medications 2 days ago.
--- NOTE | 2025-01-28 11:25 | PC.NURSE ---
Received reprt, assumed care. Pt lying in bed, watching televivion, denies any c/o or concerns at this time. Pt continues to await admission bed.
[2025-01-28 12:00] VITALS: BP 152/69; PULSE 69; RESP 16; TEMP 37.3; O2SAT 100
--- NOTE | 2025-01-28 12:21 | PC.NURSE ---
Addendum entered by Sujata Villafuerte RN 01/28/25 12:42: Pt just seen by Dr. Lang, plan for colonoscopy and endoscopy on Friday Original Note: Pt came into ED c/o nausea, constipation, and abd pain x 24 hours. Pt also has hx of COPD and is on 2L via NC a baseline. CT +procitis. Needs surgery consult and is currently NPO. Pt is A&O x 4 but is H-O-H, pt is also incontinent.
[2025-01-28 13:29] VITALS: BP 147/80; PULSE 72; RESP 14; TEMP 36.8; O2SAT 93
--- NOTE | 2025-01-28 13:46 | MHC.CM.PN ---
pt lives with and family she is active with [facility] and has home 02 she will have a ride when dcd dc plan home with family
--- NOTE | 2025-01-28 14:50 | PM.EVENT ---
Event Note Date of Service: 01/28/25 Event Note: GI Consult dictated plan for egd/colonoscopy 01/31 for evaluation of heme pos stool, melena, anemia and proctitis. Time Spent With Patient Time: Total time managing care of this patient today ____ minutes.
--- NOTE | 2025-01-28 15:23 | P.PNIM_ITS ---
Subjective Subjective Date of Service: 01/28/25 Interval History: no abd pain; no further hematemesis, hematochezia, or melena; no BM yet Review of Systems Review of Systems: Yes all other systems are reviewed and are negative Physical Exam 2 Vital Signs: Vital Signs: Last Vital Signs Temp 98.3 F 01/28/25 13:29 Pulse 72 01/28/25 13:29 Resp 14 01/28/25 13:29 BP 147/80 H 01/28/25 13:29 Pulse Ox 93 01/28/25 13:29 O2 Del Method Nasal Cannula 01/28/25 13:29 O2 Flow Rate 3 01/28/25 13:29 BMI result Body Mass Index 21.7 Gen: in no acute distress HEENT: sclera anicteric, moist mucus membranes Neck: supple Lungs: clear to auscultation bilaterally Heart: regular rate and rhythm, no murmurs Abd: soft, mild diffuse tenderness without rebound, non-distended Ext: no edema Skin: warm/well-perfused Neuro: alert and oriented x3, no focal findings Psych: appropriate affect Objective Data Active Medications Acetaminophen (Acetaminophen 325 Mg Tablet) 650 mg PO Q6H PRN PRN Reason: Pain, Mild 1-3,fever,headache Amlodipine Besylate (Amlodipine Besylate 10 Mg Tablet) 10 mg PO DAILY [facility]; Protocol Atorvastatin Calcium (Atorvastatin Calcium 10 Mg Tablet) 10 mg PO BEDTIME [facility] Bisacodyl (Bisacodyl 5 Mg Tablet.Dr) 10 mg PO BEDTIME [facility] Last Admin: 01/28/25 10:17 Dose: 10 mg Documented By: VARSHA Calcium Carbonate (Calcium Carbonate 750 Mg Tab.Chew) 750 mg PO Q4H PRN PRN Reason: Heartburn Ceftriaxone Sodium 1 gm/ (Sodium Chloride) 50 mls @ 100 mls/hr IV Q24H [facility] Last Infusion: 01/28/25 00:35 Dose: Infused Documented By: RAFI Levetiracetam (Levetiracetam 500 Mg Tablet) 500 mg PO BID [facility] Last Admin: 01/28/25 08:22 Dose: 500 mg Documented By: VARSHA Levothyroxine Sodium (Levothyroxine Sodium 112 Mcg Tablet) 112 mcg PO DAILY@0600 [facility] Last Admin: 01/28/25 08:22 Dose: 112 mcg Documented By: VARSHA Lisinopril (Lisinopril 5 Mg Tablet) 5 mg PO DAILY [facility]; Protocol Loratadine (Loratadine 10 Mg Tablet) 10 mg PO BEDTIME [facility] Magnesium Hydroxide (Milk Of Magnesia 30 Ml Oral.Susp) 30 ml PO DAILY PRN PRN Reason: Constipation Melatonin (Melatonin 3 Mg Tablet) 6 mg PO BEDTIME PRN PRN Reason: Insomnia Memantine (Memantine Hcl 10 Mg Tablet) 10 mg PO BEDTIME [facility] Omeprazole (Omeprazole 40 Mg Capsule.Dr) 40 mg PO BID@0630,1630 [facility] Ondansetron HCl (Ondansetron Hcl 4 Mg/2 Ml Vial) 4 mg IVPUSH Q8H PRN PRN Reason: Nausea and Vomiting Last Admin: 01/28/25 14:54 Dose: 4 mg Documented By: OSBALDO Oxycodone HCl (Oxycodone Hcl Immed Release 5 Mg Tablet) 5 mg PO Q6H PRN PRN Reason: Pain, Severe (Pain Scale 7-10) Polyethylene Glycol (Polyethylene Glycol 3350 17 Gm Powd.Pack) 17 gm PO BID [facility] Last Admin: 01/28/25 10:17 Dose: 17 gm Documented By: VARSHA Polyethylene Glycol/Electrolytes (Peg 3350/Na Sulf,Bicarb,Cl/Kcl 4,000 Ml Soln.Recon) 4,000 ml PO ONCE ONE Stop: 01/30/25 13:01 Senna/Docusate Sodium (Sennosides/Docusate Sodium Tablet) 2 tab PO BID [facility] Last Admin: 01/28/25 10:17 Dose: 2 tab Documented By: VARSHA Sertraline HCl (Sertraline Hcl 50 Mg Tablet) 50 mg PO DAILY [facility] Sodium Chloride (0.9 % Sodium Chloride Flush 3 Ml Syringe) 3 ml IVFLUSH QSHIFT [facility] Last Admin: 01/28/25 13:45 Dose: Not Given Documented By: OSBALDO Non-Admin Reason: IV Running Tramadol HCl (Tramadol Hcl 50 Mg Tablet) 50 mg PO Q6H PRN PRN Reason: Pain, Moderate(Pain Scale 4-6) Labs 01/28/25 04:39 01/28/25 04:39 Labs: Laboratory Results - last 24 hr 01/27/25 01/27/25 01/27/25 17:02 17:31 23:43 MCV 80.1 80.8 MCH 24.3 L 24.4 L MCHC 30.3 L 30.2 L RDW 20.3 H 20.1 H Plt Count 279 213 MPV 11.5 11.1 Immature Gran % (Auto) 0.5 H Cancelled Neut % (Auto) 86.3 H Cancelled Lymph % (Auto) 9.4 L Cancelled Coles % (Auto) 3.0 Cancelled Eos % (Auto) 0.2 Cancelled Baso % (Auto) 0.6 Cancelled Lymph # (Auto) 1.0 L Cancelled Coles # (Auto) 0.3 Cancelled Eos # (Auto) 0.0 Cancelled Baso # (Auto) 0.1 Cancelled Abs Immat Gran (auto) 0.05 H Cancelled Absolute Neuts (auto) 9.0 H Cancelled Absolute Nucleated RBC 0.000 0.000 Nucleated RBC % (auto) 0.0 0.0 Neutrophils % (Manual) 62 Band Neutrophils % 38 H Abs Neuts (Manual) 10.2 H Platelet Estimate NORMAL Large Platelets PRESENT Plt Morphology Comment NORM RBC Morphology NORMAL Schistocytes 2+ (3-5) Smear Tech's Comments VERIFIED Anion Gap 16 Estim Creat Clear Calc 36.0 Estimated GFR 57 Random Glucose 133 H Calcium 9.2 Magnesium 1.7 Total Bilirubin 0.4 AST 20 ALT 6 Alkaline Phosphatase 65 Troponin I High Sens 2.7 Total Protein 7.0 Albumin 3.9 Lipase 19 Stool Occult Blood POSITIVE 01/28/25 04:39 MCV 82.2 MCH 24.5 L MCHC 29.8 L RDW 20.3 H Plt Count 229 MPV 12.8 H Immature Gran % (Auto) Neut % (Auto) Lymph % (Auto) Coles % (Auto) Eos % (Auto) Baso % (Auto) Lymph # (Auto) Coles # (Auto) Eos # (Auto) Baso # (Auto) Abs Immat Gran (auto) Absolute Neuts (auto) Absolute Nucleated RBC 0.000 Nucleated RBC % (auto) 0.0 Neutrophils % (Manual) Band Neutrophils % Abs Neuts (Manual) Platelet Estimate Large Platelets Plt Morphology Comment RBC Morphology Schistocytes Smear Tech's Comments Anion Gap 11 L Estim Creat Clear Calc 42.8 Estimated GFR > 60 Random Glucose 111 Calcium 8.2 L D Magnesium Total Bilirubin 0.3 AST 31 ALT 9 Alkaline Phosphatase 55 Troponin I High Sens Total Protein 5.7 L Albumin 3.1 L Lipase Stool Occult Blood Assessment and Plan (1) Hematemesis: Status: Acute Plan d2, 79yo F with epilepsey, HLD, HTN, chronic respiratory failure on 2L O2 due to COPD, IBS, mood disorder, OA, cognitive impairment, Ford's esophagus, hypothyroidism presenting with hematemesis, hematochezia, abd pain, and constipation; found to have proctitis GI bleed - H+H stable, continue PPI, GI consulted, plan EGD + C-scope 01/31 proctitis - continue ceftriaxone + metronidazole 01/27- constipation - bowel regimen dilated bile ducts - likely due to cholecystectomy but per Surgery dilation has increased so recommend MRCP; will order as outpt sz: levetiracetam HLD: statin HTN: lisinopril, amlodipine hypothyroidism: continue LT4 cognitive impairment: memantine mood disorder: sertraline chronic hypoxia: 2L O2 at home VTE ppx: SCDs dispo: TBD In my clinical judgment, the patient requires continued inpatient hospitalization for the following reasons: scope Total time managing care of this patient today: 35 minutes. Quality Stroke Does the patient have a stroke diagnosis?: No VTE Prior VTE?: No VTE Risk Level:: Medical - moderate - high VTE Device Contraindication: N/A - Device Ordered VTE Drug Contraindication: Treatment Not Indicated
[2025-01-28 20:00] VITALS: BP 157/76; PULSE 72; RESP 16; TEMP 36.9; O2SAT 100
[2025-01-28] MEDS: 0.9 % Sodium Chloride Flush 3 ML SYRINGE IVFLUSH (22:47)
--- NOTE | 2025-01-29 02:00 | CONS_ITS ---
DATE OF SERVICE: 01/28/2025 REFERRING PHYSICIAN: Dr. De Leon REASON FOR CONSULTATION: Black stool, abnormal CT scan and Hemoccult-positive stool. HISTORY OF PRESENT ILLNESS: The patient is a pleasant 79-year-old woman who was admitted to the hospital after presenting to the emergency room yesterday mainly with complaints of constipation that required disimpaction. There was associated abdominal and rectal pain. She told the ER provider that she vomited black emesis, although she denies that now and states it was a roast beef sandwich. Examination in the emergency department showed black tarry stool and CT scanning was obtained which showed proctitis. The patient was admitted to the hospital. Laboratory studies documented a hematocrit of 36.6, which dropped to 32 overnight and 33 this morning without any active bleeding. She was recently hospitalized and underwent upper endoscopy in December of this year, which showed gastritis. She was thought to have probable gastrointestinal blood loss from small bowel AVMs at that time and capsule endoscopy was a consideration. PAST MEDICAL HISTORY: 1. Hypertension. 2. Hyperlipidemia. 3. Osteoarthritis. 4. Vitamin D deficiency. 5. Ford esophagus. 6. COPD with history of respiratory failure and nocturnal hypoxemia. 7. Anxiety. CURRENT MEDICATIONS: Her current medication list is reviewed in the chart. ALLERGIES: THERE ARE MULTIPLE ALLERGIES THAT ARE REVIEWED. FAMILY HISTORY: This is reviewed with the patient and is noncontributory. SOCIAL HISTORY: There is no current tobacco, alcohol, or substance abuse. REVIEW OF SYSTEMS: SKIN: No pruritus. HEENT: Negative. CARDIOPULMONARY: No shortness of breath or chest pain. GASTROINTESTINAL: As above. GENITOURINARY: Negative. NEUROPSYCHIATRIC: Negative. PHYSICAL EXAMINATION: GENERAL: Shows a pleasant female, lying comfortably in bed. VITAL SIGNS: Reviewed in the electronic medical record and are stable. SKIN: Anicteric. HEENT: Shows no scleral icterus. NECK: Without lymphadenopathy or thyromegaly. LUNGS: Clear. HEART: Shows a regular rate and rhythm. S1, S2. No murmur. ABDOMEN: Soft without focal masses or tenderness. Bowel sounds are present. No organomegaly is noted. EXTREMITIES: Without edema. LABORATORY DATA: Reviewed in the electronic medical record as are imaging studies. IMPRESSION: 1. Black stool that is Hemoccult positive. 2. Anemia. 3. Questionable history of hematemesis and abnormal CT scan. At this point, the patient seemed stable with no evidence of active GI bleeding. I agree with treating her with a proton pump inhibitor as we are doing. Would recommend that she undergo upper endoscopy and colonoscopy for further evaluation of her GI tract due to her persistent symptoms and abnormal CT scan as well as laboratory findings. I recommended this be done on 01/31. She will be placed on the operating room schedule at that time. She is aware of risks and benefits of endoscopy and colonoscopy and agrees to proceed. In the interim, I would avoid any anticoagulant medications and monitor her hematocrit. Thanks for asking me to see her. I will follow her in the hospital with you. MD LUIS Malhotra/JOHN / [id number]
[2025-01-29 03:33] VITALS: BP 156/77; PULSE 65; RESP 17; TEMP 36.2; O2SAT 100
[2025-01-29 07:08] LABS: Hematocrit 32.4 % (37.0-47.0); Hemoglobin 9.7 g/dl (12.0-16.0); Mean Corpuscular HGB Conc 29.9 g/dl (31.0-35.0); Mean Corpuscular Hemoglobin 24.0 pg (27.0-33.0); Mean Corpuscular Volume 80.2 fL (80.0-98.0); NRBC Abs Auto 0.000 X10*3/uL (0.0-0.012); NRBC Pct Auto 0.0 /100WBC (0.0-0.2); Platelet Count 188 X10*3/uL (160-400); Red Blood Count 4.04 X10*6/uL (4.20-5.50); White Blood Count 6.3 X10*3/uL (4.8-10.8)
[2025-01-29 07:22] LABS: Alanine Aminotransferase 8 U/L (0-31); Albumin Level 3.4 g/dL (3.5-5.0); Alkaline Phosphatase 58 U/L (39-117); Aspartate Amino Transferase 19 U/L (5-31); Blood Urea Nitrogen 7 mg/dL (9-16); Calcium 8.7 mg/dL (8.4-10.2); Creatinine Clr Calc Pharmacy 47.7; Estimated Glomerular Filt Rate > 60; Total Protein 6.2 g/dL (6.5-8.0)
[2025-01-29 07:35] LABS: Anion Gap 13 (12-20); Carbon Dioxide 28 mmol/L (22-29); Chloride 103 mmol/L (96-108); Potassium 3.4 mmol/L (3.3-5.1); Sodium 141 mmol/L (135-145)
[2025-01-29 07:47] VITALS: BP 162/70; PULSE 71; RESP 18; TEMP 36.5; O2SAT 97
[2025-01-29] MEDS: 0.9 % Sodium Chloride Flush 3 ML SYRINGE IVFLUSH ×2 (08:00→16:44)
--- NOTE | 2025-01-29 10:42 | P.PNIM_ITS ---
Subjective Subjective Date of Service: 01/29/25 Interval History: feels unwell but no specific localizing pain; no BM; no hematemesis, hematochezia, or melena. Review of Systems Review of Systems: Yes all other systems are reviewed and are negative Physical Exam 2 Vital Signs: Vital Signs: Last Vital Signs Temp 97.7 F 01/29/25 07:47 Pulse 71 01/29/25 07:47 Resp 18 01/29/25 07:47 BP 162/70 H 01/29/25 07:47 Pulse Ox 97 01/29/25 07:47 O2 Del Method Nasal Cannula 01/29/25 07:47 O2 Flow Rate 2.0 01/29/25 07:47 BMI result Body Mass Index 21.7 Gen: in no acute distress HEENT: sclera anicteric, moist mucus membranes Neck: supple Lungs: clear to auscultation bilaterally Heart: regular rate and rhythm, no murmurs Abd: soft, mild diffuse tenderness without rebound, non-distended Ext: no edema Skin: warm/well-perfused Neuro: alert and oriented x3, no focal findings Psych: appropriate affect Objective Data Active Medications Acetaminophen (Acetaminophen 325 Mg Tablet) 650 mg PO Q6H PRN PRN Reason: Pain, Mild 1-3,fever,headache Amlodipine Besylate (Amlodipine Besylate 10 Mg Tablet) 10 mg PO DAILY [facility]; Protocol Last Admin: 01/29/25 08:00 Dose: 10 mg Documented By: ELIDA Atorvastatin Calcium (Atorvastatin Calcium 10 Mg Tablet) 10 mg PO BEDTIME [facility] Last Admin: 01/28/25 19:18 Dose: 10 mg Documented By: MARCELINO Bisacodyl (Bisacodyl 5 Mg Tablet.Dr) 10 mg PO BEDTIME [facility] Last Admin: 01/28/25 22:37 Dose: Not Given Documented By: MARCELINO Non-Admin Reason: frequent loose stool Calcium Carbonate (Calcium Carbonate 750 Mg Tab.Chew) 750 mg PO Q4H PRN PRN Reason: Heartburn Ceftriaxone Sodium 1 gm/ (Sodium Chloride) 50 mls @ 100 mls/hr IV Q24H [facility] Last Infusion: 01/28/25 23:20 Dose: Infused Documented By: MARCELINO Levetiracetam (Levetiracetam 500 Mg Tablet) 500 mg PO BID [facility] Last Admin: 01/29/25 08:01 Dose: 500 mg Documented By: ELIDA Levothyroxine Sodium (Levothyroxine Sodium 112 Mcg Tablet) 112 mcg PO DAILY@0600 [facility] Last Admin: 01/29/25 05:48 Dose: 112 mcg Documented By: MARCELINO Lisinopril (Lisinopril 5 Mg Tablet) 5 mg PO DAILY [facility]; Protocol Last Admin: 01/29/25 08:00 Dose: 5 mg Documented By: ELIDA Loratadine (Loratadine 10 Mg Tablet) 10 mg PO BEDTIME [facility] Last Admin: 01/28/25 19:19 Dose: 10 mg Documented By: MARCELINO Magnesium Hydroxide (Milk Of Magnesia 30 Ml Oral.Susp) 30 ml PO DAILY PRN PRN Reason: Constipation Melatonin (Melatonin 3 Mg Tablet) 6 mg PO BEDTIME PRN PRN Reason: Insomnia Memantine (Memantine Hcl 10 Mg Tablet) 10 mg PO BEDTIME [facility] Last Admin: 01/28/25 19:19 Dose: 10 mg Documented By: MARCELINO Omeprazole (Omeprazole 40 Mg Capsule.) 40 mg PO BID@0630,1630 [facility] Last Admin: 01/29/25 05:48 Dose: 40 mg Documented By: MARCELINO Ondansetron HCl (Ondansetron Hcl 4 Mg/2 Ml Vial) 4 mg IVPUSH Q8H PRN PRN Reason: Nausea and Vomiting Last Admin: 01/28/25 14:54 Dose: 4 mg Documented By: SOFFAPedro Pablo Oxycodone HCl (Oxycodone Hcl Immed Release 5 Mg Tablet) 5 mg PO Q6H PRN PRN Reason: Pain, Severe (Pain Scale 7-10) Polyethylene Glycol (Polyethylene Glycol 3350 17 Gm Powd.Pack) 17 gm PO BID [facility] Last Admin: 01/29/25 07:54 Dose: Not Given Documented By: ELIDA Non-Admin Reason: loose stools Polyethylene Glycol/Electrolytes (Peg 3350/Na Sulf,Bicarb,Cl/Kcl 4,000 Ml Soln.Recon) 4,000 ml PO ONCE ONE Stop: 01/30/25 13:01 Senna/Docusate Sodium (Sennosides/Docusate Sodium Tablet) 2 tab PO BID [facility] Last Admin: 01/29/25 07:55 Dose: Not Given Documented By: ELIDA Non-Admin Reason: loose stools Sertraline HCl (Sertraline Hcl 50 Mg Tablet) 50 mg PO DAILY [facility] Last Admin: 01/29/25 08:01 Dose: 50 mg Documented By: ELIDA Sodium Chloride (0.9 % Sodium Chloride Flush 3 Ml Syringe) 3 ml IVFLUSH QSHIFT [facility] Last Admin: 01/29/25 08:00 Dose: 3 ml Documented By: ELIDA Tramadol HCl (Tramadol Hcl 50 Mg Tablet) 50 mg PO Q6H PRN PRN Reason: Pain, Moderate(Pain Scale 4-6) Labs 01/29/25 05:43 01/29/25 05:43 Labs: Laboratory Results - last 24 hr 01/29/25 05:43 MCV 80.2 MCH 24.0 L MCHC 29.9 L RDW 19.9 H Plt Count 188 MPV Not Reportable Absolute Nucleated RBC 0.000 Nucleated RBC % (auto) 0.0 Anion Gap 13 Estim Creat Clear Calc 47.7 Estimated GFR > 60 Random Glucose 77 Calcium 8.7 D Total Bilirubin 0.4 AST 19 ALT 8 Alkaline Phosphatase 58 Total Protein 6.2 L Albumin 3.4 L Assessment and Plan (1) Hematemesis: Status: Acute Plan d3, 79yo F with epilepsey, HLD, HTN, chronic respiratory failure on 2L O2 due to COPD, IBS, mood disorder, OA, cognitive impairment, Ford's esophagus, hypothyroidism presenting with hematemesis, hematochezia, abd pain, and constipation; found to have proctitis GI bleed - H+H stable, continue PPI, GI consulted, plan EGD + C-scope 01/31 proctitis - continue ceftriaxone + metronidazole 01/27- constipation - bowel regimen dilated bile ducts - likely due to cholecystectomy but per Surgery dilation has increased from prior, so recommend MRCP; will order as outpt sz: levetiracetam HLD: statin HTN: lisinopril, amlodipine hypothyroidism: continue LT4 cognitive impairment: memantine mood disorder: sertraline chronic hypoxia due to COPD: 2L O2 at home VTE ppx: SCDs dispo: TBD, PT evaluation after scope In my clinical judgment, the patient requires continued inpatient hospitalization for the following reasons: scope Total time managing care of this patient today: 35 minutes. Quality Stroke Does the patient have a stroke diagnosis?: No VTE Prior VTE?: No VTE Risk Level:: Medical - moderate - high VTE Device Contraindication: N/A - Device Ordered VTE Drug Contraindication: Treatment Not Indicated
[2025-01-29 15:30] VITALS: BP 161/69; PULSE 61; RESP 12; TEMP 36.3; O2SAT 99
[2025-01-29 19:29] VITALS: BP 166/74; PULSE 63; RESP 17; TEMP 36.4; O2SAT 100
[2025-01-30 03:50] VITALS: BP 152/68; PULSE 59; RESP 18; TEMP 36.5; O2SAT 93
[2025-01-30 06:44] LABS: Hematocrit 31.4 % (37.0-47.0); Hemoglobin 9.5 g/dl (12.0-16.0); Mean Corpuscular HGB Conc 30.3 g/dl (31.0-35.0); Mean Corpuscular Hemoglobin 24.2 pg (27.0-33.0); Mean Corpuscular Volume 80.1 fL (80.0-98.0); NRBC Abs Auto 0.000 X10*3/uL (0.0-0.012); NRBC Pct Auto 0.0 /100WBC (0.0-0.2); Platelet Count 189 X10*3/uL (160-400); Red Blood Count 3.92 X10*6/uL (4.20-5.50); White Blood Count 5.7 X10*3/uL (4.8-10.8)
[2025-01-30 07:52] VITALS: BP 166/81; PULSE 55; RESP 16; TEMP 36.3; O2SAT 97
[2025-01-30] MEDS: 0.9 % Sodium Chloride Flush 3 ML SYRINGE IVFLUSH ×3 (08:02→20:49)
--- NOTE | 2025-01-30 14:00 | P.PNIM_ITS ---
Subjective Subjective Date of Service: 01/30/25 Interval History: No acute issues overnight. Tolerating clear liquid diet Review of Systems Denies chest pain Denies shortness of breath Denies nausea vomiting diarrhea Denies fever chills Physical Exam 2 Vital Signs: Vital Signs: Last Vital Signs Temp 97.3 F 01/30/25 07:52 Pulse 55 01/30/25 07:52 Resp 16 01/30/25 07:52 BP 166/81 H 01/30/25 07:52 Pulse Ox 97 01/30/25 07:52 O2 Del Method Nasal Cannula 01/30/25 07:52 O2 Flow Rate 2.0 01/30/25 07:52 BMI result Body Mass Index 21.7 Const: Other: Awake alert no acute distress Resp: Other: Clear to auscultation bilaterally no rales rhonchi or wheezes Cardio: Other: No S4; positive S1-S2; no S3 murmurs rubs or gallops GI: Other: Soft nontender nondistended normoactive bowel sounds Extrem: Other: No edema bilaterally Objective Data Active Medications Acetaminophen (Acetaminophen 325 Mg Tablet) 650 mg PO Q6H PRN PRN Reason: Pain, Mild 1-3,fever,headache Amlodipine Besylate (Amlodipine Besylate 10 Mg Tablet) 10 mg PO DAILY [facility]; Protocol Last Admin: 01/30/25 08:02 Dose: 10 mg Documented By: ELIDA Atorvastatin Calcium (Atorvastatin Calcium 10 Mg Tablet) 10 mg PO BEDTIME [facility] Last Admin: 01/29/25 20:53 Dose: 10 mg Documented By: LAMIN Bisacodyl (Bisacodyl 5 Mg Tablet.Dr) 10 mg PO BEDTIME [facility] Last Admin: 01/29/25 20:53 Dose: 10 mg Documented By: LAMIN Calcium Carbonate (Calcium Carbonate 750 Mg Tab.Chew) 750 mg PO Q4H PRN PRN Reason: Heartburn Ceftriaxone Sodium 1 gm/ (Sodium Chloride) 50 mls @ 100 mls/hr IV Q24H [facility] Last Infusion: 01/30/25 00:11 Dose: Infused Documented By: LAMIN Levetiracetam (Levetiracetam 500 Mg Tablet) 500 mg PO BID [facility] Last Admin: 01/30/25 08:01 Dose: 500 mg Documented By: ELIDA Levothyroxine Sodium (Levothyroxine Sodium 112 Mcg Tablet) 112 mcg PO DAILY@0600 [facility] Last Admin: 01/30/25 05:34 Dose: 112 mcg Documented By: LAMIN Lisinopril (Lisinopril 5 Mg Tablet) 5 mg PO DAILY [facility]; Protocol Last Admin: 01/30/25 08:02 Dose: 5 mg Documented By: ELIDA Loratadine (Loratadine 10 Mg Tablet) 10 mg PO BEDTIME [facility] Last Admin: 01/29/25 20:53 Dose: 10 mg Documented By: LAMIN Magnesium Hydroxide (Milk Of Magnesia 30 Ml Oral.Susp) 30 ml PO DAILY PRN PRN Reason: Constipation Melatonin (Melatonin 3 Mg Tablet) 6 mg PO BEDTIME PRN PRN Reason: Insomnia Memantine (Memantine Hcl 10 Mg Tablet) 10 mg PO BEDTIME [facility] Last Admin: 01/29/25 20:54 Dose: 10 mg Documented By: LAMIN Omeprazole (Omeprazole 40 Mg Capsule.Dr) 40 mg PO BID@0630,1630 [facility] Last Admin: 01/30/25 05:34 Dose: 40 mg Documented By: LAMIN Ondansetron HCl (Ondansetron Hcl 4 Mg/2 Ml Vial) 4 mg IVPUSH Q8H PRN PRN Reason: Nausea and Vomiting Last Admin: 01/28/25 14:54 Dose: 4 mg Documented By: OSBALDO Oxycodone HCl (Oxycodone Hcl Immed Release 5 Mg Tablet) 5 mg PO Q6H PRN PRN Reason: Pain, Severe (Pain Scale 7-10) Polyethylene Glycol (Polyethylene Glycol 3350 17 Gm Powd.Pack) 17 gm PO BID [facility] Last Admin: 01/30/25 08:04 Dose: Not Given Documented By: ELIDA Non-Admin Reason: Patient Refused Senna/Docusate Sodium (Sennosides/Docusate Sodium Tablet) 2 tab PO BID [facility] Last Admin: 01/30/25 08:01 Dose: 2 tab Documented By: ELIDA Sertraline HCl (Sertraline Hcl 50 Mg Tablet) 50 mg PO DAILY [facility] Last Admin: 01/30/25 08:01 Dose: 50 mg Documented By: ELIDA Sodium Chloride (0.9 % Sodium Chloride Flush 3 Ml Syringe) 3 ml IVFLUSH QSHIFT [facility] Last Admin: 01/30/25 08:02 Dose: 3 ml Documented By: ELIDA Tramadol HCl (Tramadol Hcl 50 Mg Tablet) 50 mg PO Q6H PRN PRN Reason: Pain, Moderate(Pain Scale 4-6) Labs 01/30/25 06:05 01/29/25 05:43 Labs: Laboratory Results - last 24 hr 01/30/25 06:05 MCV 80.1 MCH 24.2 L MCHC 30.3 L RDW 19.6 H Plt Count 189 MPV Not Reportable Absolute Nucleated RBC 0.000 Nucleated RBC % (auto) 0.0 Assessment and Plan (1) GI bleed: Status: Acute (2) Acute proctitis: Status: Acute (3) Dilated cbd, acquired: Status: Acute Plan 79yo F with epilepsey, HLD, HTN, chronic respiratory failure on 2L O2 due to COPD, IBS, mood disorder, OA, cognitive impairment, Ford's esophagus, hypothyroidism presenting with hematemesis, hematochezia, abd pain, and constipation; found to have proctitis. Clear liquid diet today/colon prep for scope in a.m. 1.GI bleed -hemoglobin stable - IV PPI - EGD/colonoscopy in a.m. -NPO after midnight 2.Proctitis -ceftriaxone/metronidazole (4) -further plans based on forthcoming data 3.Dilated bile ducts - likely due to cholecystectomy but per Surgery dilation has increased from prior, so recommend MRCP; will order as outpt 4.Seizures -stable and well compensated -continue outpatient therapies 5. Hypertension -acceptable control on current therapies -adjust as indicated 6. COPD (O2 requirement at home) -not an issue this admission -continue outpatient therapies Pneumatics Full code In my clinical judgment, the patient requires continued inpatient hospitalization for the following reasons: scope Quality Stroke Does the patient have a stroke diagnosis?: No VTE Prior VTE?: No VTE Risk Level:: Medical - moderate - high VTE Device Contraindication: N/A - Device Ordered VTE Drug Contraindication: Treatment Not Indicated
[2025-01-30] MEDS: PEG 3350/Na Sulf,Bicarb,Cl/KCL 4,000 ML SOLN.RECON 4000 ML PO (15:03)
[2025-01-30 16:00] VITALS: BP 167/88; PULSE 53; RESP 16; TEMP 36.4; O2SAT 95
[2025-01-30 19:59] VITALS: BP 110/49; PULSE 57; RESP 16; TEMP 36.2; O2SAT 100
[2025-01-31] VITALS (8 sets, daily range): BP systolic 109–163; BP diastolic 40–81; PULSE 54–75; RESP 12–18; TEMP 36.1–36.7; O2SAT 91–100
--- NOTE | 2025-01-31 00:54 | PC.NURSE ---
Pt due to be NPO at midnight for procedure tomorrow, however patient has only drank about 1/4 of the bowel prep for her procedure tomorrow. Encouraging patient to continue drinking as bowel movements are not clear and still have some form to them. Patient not very compliant with drinking prep.
--- NOTE | 2025-01-31 03:09 | PC.NURSE ---
At approximately 0200 pt stated she can not drink anymore of the prep.
[2025-01-31 06:49] LABS: MANUAL DIFF FLAG NO
[2025-01-31 06:54] LABS: Hematocrit 35.4 % (37.0-47.0); Hemoglobin 10.4 g/dl (12.0-16.0); Imm Gran Abs Auto 0.01 X10*3/uL (0.00-0.03); Imm Gran Pct Auto 0.2 % (0.0-0.4); Lymphocytes Absolute Auto 0.9 X10*3/uL (1.2-4.9); Mean Corpuscular HGB Conc 29.4 g/dl (31.0-35.0); Mean Corpuscular Hemoglobin 24.0 pg (27.0-33.0); Mean Corpuscular Volume 81.6 fL (80.0-98.0); NRBC Abs Auto 0.000 X10*3/uL (0.0-0.012); NRBC Pct Auto 0.0 /100WBC (0.0-0.2); Platelet Count 226 X10*3/uL (160-400); Red Blood Count 4.34 X10*6/uL (4.20-5.50); White Blood Count 5.7 X10*3/uL (4.8-10.8)
[2025-01-31 07:10] LABS: Alanine Aminotransferase 7 U/L (0-31); Albumin Level 3.7 g/dL (3.5-5.0); Alkaline Phosphatase 61 U/L (39-117); Anion Gap 15 (12-20); Aspartate Amino Transferase 20 U/L (5-31); Blood Urea Nitrogen 9 mg/dL (9-16); Calcium 9.3 mg/dL (8.4-10.2); Carbon Dioxide 29 mmol/L (22-29); Chloride 105 mmol/L (96-108); Creatinine Clr Calc Pharmacy 55.5; Estimated Glomerular Filt Rate > 60; Potassium 3.6 mmol/L (3.3-5.1); Sodium 145 mmol/L (135-145); Total Protein 6.9 g/dL (6.5-8.0)
[2025-01-31] MEDS: 0.9 % Sodium Chloride Flush 3 ML SYRINGE IVFLUSH ×3 (07:22→19:53)
--- NOTE | 2025-01-31 13:21 | P.CONAN_ITS ---
[facility] Active Problems Active Problems: All Active Problems (Updated 01/28/25 @ 01:27 by SIOMARA Kirkland) Black stool (Acute) Acute proctitis (Acute) Positive occult stool blood test (Acute) Hematemesis (Acute) GI bleed (Acute) Pre-syncope (Acute) Intractable vomiting (Acute) Intractable diarrhea (Acute) Syncope (Acute) Diarrhea (Acute) Acute proctitis (Acute) UTI (urinary tract infection) (Acute) Dilated cbd, acquired (Acute) Medicare annual wellness visit, subsequent (Acute) COVID-19 (Acute) Acute exacerbation of chronic obstructive pulmonary disease (Acute) Hypercholesterolemia (Acute) Nocturnal hypoxemia (Acute) Acute rhinosinusitis (Acute) LFT elevation (Acute) Microscopic hematuria (Acute) Renal cyst (Acute) COPD (chronic obstructive pulmonary disease) (Acute) Age related osteoporosis (Acute) Allergic rhinitis (Acute) IBS (irritable bowel syndrome) (Acute) H. pylori duodenitis (Acute) Vitamin D deficiency (Acute) Vitamin B 12 deficiency (Acute) Cognitive impairment (Acute) Gait instability (Acute) Osteoarthritis (Acute) Ford's esophagus (Acute) GERD (gastroesophageal reflux disease) (Acute) Hypothyroid (Acute) Past Medical History Medical History Generalized anxiety disorder Nocturnal hypoxemia Acute rhinosinusitis Microscopic hematuria Renal cyst Osteoarthritis, knee COPD (chronic obstructive pulmonary disease) Acute and chronic respiratory failure with hypoxia COPD exacerbation LFT elevation Shortness of breath Rash Bilateral knee pain Hematuria Frequent falls Left-sided back pain Seizure disorder Allergic rhinitis Generalized abdominal pain Anemia Initial Medicare annual wellness visit Screening for osteoporosis Hypoxemia Anemia Syncope Nausea Chronic diarrhea Diarrhea Bile salt-induced diarrhea Cutaneous lupus erythematosus Osteoarthritis Hypertension Vitamin D deficiency COPD (chronic obstructive pulmonary disease) Ford's esophagus GERD (gastroesophageal reflux disease) Hypothyroid Family History Family History Father Lymphoma Lung cancer Mother Hypertension Diabetes Sister Brain cancer Family history of problems with anesthesia: No Surgical History Surgical History History of cataract surgery History of rectal surgery History of ear surgery History of cholecystectomy History of eye surgery History of Problems with Anesthesia: No Social History Social History (Reviewed 01/28/25 @ 01:14 by AUGUST Kirkland Household Members: Children Household Members Other:: son, daughter in law, granchildren Housing: Other Housing Other:: Trailer Are you a primary day care director to a significant other at home: No Do you presently have visiting nurse or other home services: Yes Alcohol intake: former Patient Tobacco Use Status: Former Tobacco user Tobacco use type: Cigarette e-Cigarette/Vaping Use: Never Used Second Hand Smoke Exposure: Yes Advance Directives Date on File: 08/04/23 service: No Current occupational status: retired Cognitive needs: Yes (Walker, Cane) Hearing needs: Yes (hearing aide) Vision needs: Yes (Glasses) Meds Allergies Allergy/AdvReac Type Severity Reaction Status Date / Time amoxicillin (AMOXICILLIN) Allergy Intermediate STOMACH Verified 01/27/25 17:06 ISSUES pollen extracts (POLLEN) Allergy Mild RUNNY Verified 01/27/25 17:06 NOSE, SNEEZING, ITCHY EYES Sulfa (Sulfonamide Allergy Unknown Verified 01/27/25 17:06 Antibiotics) Active Medications: Current Medications Acetaminophen (Acetaminophen 325 Mg Tablet) 650 mg PO Q6H PRN PRN Reason: Pain, Mild 1-3,fever,headache Amlodipine Besylate (Amlodipine Besylate 10 Mg Tablet) 10 mg PO DAILY [facility]; Protocol Last Admin: 01/31/25 07:22 Dose: 10 mg Atorvastatin Calcium (Atorvastatin Calcium 10 Mg Tablet) 10 mg PO BEDTIME [facility] Last Admin: 01/30/25 20:46 Dose: 10 mg Bisacodyl (Bisacodyl 5 Mg Tablet.Dr) 10 mg PO BEDTIME [facility] Last Admin: 01/30/25 20:46 Dose: 10 mg Calcium Carbonate (Calcium Carbonate 750 Mg Tab.Chew) 750 mg PO Q4H PRN PRN Reason: Heartburn Ceftriaxone Sodium 1 gm/ (Sodium Chloride) 50 mls @ 100 mls/hr IV Q24H [facility] Last Infusion: 01/30/25 22:57 Dose: Infused Levetiracetam (Levetiracetam 500 Mg Tablet) 500 mg PO BID [facility] Last Admin: 01/31/25 07:22 Dose: 500 mg Levothyroxine Sodium (Levothyroxine Sodium 112 Mcg Tablet) 112 mcg PO DAILY@0600 [facility] Last Admin: 01/31/25 06:05 Dose: 112 mcg Lisinopril (Lisinopril 5 Mg Tablet) 5 mg PO DAILY [facility]; Protocol Last Admin: 01/31/25 07:54 Dose: Not Given Loratadine (Loratadine 10 Mg Tablet) 10 mg PO BEDTIME [facility] Last Admin: 01/30/25 20:46 Dose: 10 mg Magnesium Hydroxide (Milk Of Magnesia 30 Ml Oral.Susp) 30 ml PO DAILY PRN PRN Reason: Constipation Melatonin (Melatonin 3 Mg Tablet) 6 mg PO BEDTIME PRN PRN Reason: Insomnia Memantine (Memantine Hcl 10 Mg Tablet) 10 mg PO BEDTIME [facility] Last Admin: 01/30/25 20:46 Dose: 10 mg Naloxone HCl (Naloxone Hcl 0.4 Mg/Ml Vial) 0.04 mg IVPUSH Q5M PRN PRN Reason: Excessive sedation or RR < 8 Omeprazole (Omeprazole 40 Mg Capsule.Dr) 40 mg PO BID@0630,1630 [facility] Last Admin: 01/31/25 06:05 Dose: 40 mg Ondansetron HCl (Ondansetron Hcl 4 Mg/2 Ml Vial) 4 mg IVPUSH Q8H PRN PRN Reason: Nausea and Vomiting Last Admin: 01/28/25 14:54 Dose: 4 mg Oxycodone HCl (Oxycodone Hcl Immed Release 5 Mg Tablet) 5 mg PO Q6H PRN PRN Reason: Pain, Severe (Pain Scale 7-10) Polyethylene Glycol (Polyethylene Glycol 3350 17 Gm Powd.Pack) 17 gm PO BID [facility] Last Admin: 01/31/25 07:55 Dose: Not Given Senna/Docusate Sodium (Sennosides/Docusate Sodium Tablet) 2 tab PO BID [facility] Last Admin: 01/31/25 07:22 Dose: 2 tab Sertraline HCl (Sertraline Hcl 50 Mg Tablet) 50 mg PO DAILY [facility] Last Admin: 01/31/25 07:22 Dose: 50 mg Sodium Biphosphate/Sodium Phosphate (Sodium Phosphate,[place]-Dibasic 133 Ml Enema) 133 ml [place] ONCE PRN PRN Reason: Poor Colonoscopy Prep Results Last Admin: 01/31/25 10:16 Dose: 133 ml Sodium Biphosphate/Sodium Phosphate (Sodium Phosphate,[place]-Dibasic 133 Ml Enema) 133 ml [place] ONCE PRN PRN Reason: Poor Colonoscopy Prep Results Last Admin: 01/31/25 10:16 Dose: 133 ml Sodium Chloride (0.9 % Sodium Chloride Flush 3 Ml Syringe) 3 ml IVFLUSH QSHIFT [facility] Last Admin: 01/31/25 07:22 Dose: 3 ml Tramadol HCl (Tramadol Hcl 50 Mg Tablet) 50 mg PO Q6H PRN PRN Reason: Pain, Moderate(Pain Scale 4-6) Home Medications ?Medication ?Instructions ?Recorded ?Confirmed ?Last Taken ?Type diphenoxylate-atropine 2.5 1 - 2 tab PO BID PRN Diarrh ea 07/07/24 01/28/25 01/26/25 History mg-0.025 mg tablet levothyroxine 112 mcg tablet 112 mcg PO DAILY@0600 01/28/25 01/26/25 History memantine 10 mg tablet 10 mg PO BEDTIME 01/28/2501/26/25 History omeprazole 40 mg capsule,delayed 40 mg PO BID@0630,163 0 01/28/25 01/28/25 01/26/25 History release Exam Height,Weight and Vital Signs: Height 5 ft 1 in Weight 52.163 kg Last Vital Signs Temp 97.0 F 01/31/25 07:53 Pulse 54 01/31/25 07:53 Resp 12 01/31/25 07:53 BP 151/70 H 01/31/25 07:53 Pulse Ox 100 01/31/25 07:53 O2 Del Method Nasal Cannula 01/31/25 07:53 O2 Flow Rate 2 01/31/25 07:53 Pertinent Lab Results Pertinent Lab Results: Laboratory Tests 01/27/25 01/27/25 01/27/25 17:02 17:31 23:43 WBC 10.4 10.2 RBC 4.57 4.02 L Hgb 11.1 L 9.8 L Hct 36.6 L 32.5 L MCV 80.1 80.8 MCH 24.3 L 24.4 L MCHC 30.3 L 30.2 L RDW 20.3 H 20.1 H Plt Count 279 213 MPV 11.5 11.1 Immature Gran % (Auto) 0.5 H Cancelled Neut % (Auto) 86.3 H Cancelled Lymph % (Auto) 9.4 L Cancelled [place] % (Auto) 3.0 Cancelled Eos % (Auto) 0.2 Cancelled Baso % (Auto) 0.6 Cancelled Lymph # (Auto) 1.0 L Cancelled [place] # (Auto) 0.3 Cancelled Eos # (Auto) 0.0 Cancelled Baso # (Auto) 0.1 Cancelled Abs Immat Gran (auto) 0.05 H Cancelled Absolute Neuts (auto) 9.0 H Cancelled Absolute Nucleated RBC 0.000 0.000 Nucleated RBC % (auto) 0.0 0.0 Neutrophils % (Manual) 62 Band Neutrophils % 38 H Abs Neuts (Manual) 10.2 H Platelet Estimate NORMAL Large Platelets PRESENT Plt Morphology Comment NORM RBC Morphology NORMAL Schistocytes 2+ (3-5) Smear Tech's Comments VERIFIED Sodium 146 H Potassium 3.5 Chloride 111 H Carbon Dioxide 23 Anion Gap 16 BUN 12 Creatinine 0.94 Estim Creat Clear Calc 36.0 Estimated GFR 57 Random Glucose 133 H Fasting Glucose Calcium 9.2 Magnesium 1.7 Total Bilirubin 0.4 AST 20 ALT 6 Alkaline Phosphatase 65 Troponin I High Sens 2.7 Total Protein 7.0 Albumin 3.9 Lipase 19 Stool Occult Blood POSITIVE 01/28/25 01/29/25 01/30/25 04:39 05:43 06:05 WBC 8.4 6.3 5.7 RBC 4.04 L 4.04 L 3.92 L Hgb 9.9 L 9.7 L 9.5 L Hct 33.2 L 32.4 L 31.4 L MCV 82.2 80.2 80.1 MCH 24.5 L 24.0 L 24.2 L MCHC 29.8 L 29.9 L 30.3 L RDW 20.3 H 19.9 H 19.6 H Plt Count 229 188 189 MPV 12.8 H Not Reportable Not Reportable Immature Gran % (Auto) Neut % (Auto) Lymph % (Auto) [place] % (Auto) Eos % (Auto) Baso % (Auto) Lymph # (Auto) [place] # (Auto) Eos # (Auto) Baso # (Auto) Abs Immat Gran (auto) Absolute Neuts (auto) Absolute Nucleated RBC 0.000 0.000 0.000 Nucleated RBC % (auto) 0.0 0.0 0.0 Neutrophils % (Manual) Band Neutrophils % Abs Neuts (Manual) Platelet Estimate Large Platelets Plt Morphology Comment RBC Morphology Schistocytes Smear Tech's Comments Sodium 141 141 Potassium 4.0 3.4 Chloride 111 H 103 Carbon Dioxide 23 28 Anion Gap 11 L 13 BUN 11 7 L Creatinine 0.79 0.71 Estim Creat Clear Calc 42.8 47.7 Estimated GFR > 60 > 60 Random Glucose 111 77 Fasting Glucose Calcium 8.2 L D 8.7 D Magnesium Total Bilirubin 0.3 0.4 AST 31 19 ALT 9 8 Alkaline Phosphatase 55 58 Troponin I High Sens Total Protein 5.7 L 6.2 L Albumin 3.1 L 3.4 L Lipase Stool Occult Blood 01/31/25 05:57 WBC 5.7 RBC 4.34 Hgb 10.4 L Hct 35.4 L MCV 81.6 MCH 24.0 L MCHC 29.4 L RDW 19.8 H Plt Count 226 MPV 12.3 Immature Gran % (Auto) 0.2 Neut % (Auto) 71.2 Lymph % (Auto) 16.6 L [place] % (Auto) 8.8 Eos % (Auto) 2.7 Baso % (Auto) 0.5 Lymph # (Auto) 0.9 L [place] # (Auto) 0.5 Eos # (Auto) 0.2 Baso # (Auto) 0.0 Abs Immat Gran (auto) 0.01 Absolute Neuts (auto) 4.0 Absolute Nucleated RBC 0.000 Nucleated RBC % (auto) 0.0 Neutrophils % (Manual) Band Neutrophils % Abs Neuts (Manual) Platelet Estimate Large Platelets Plt Morphology Comment RBC Morphology Schistocytes Smear Tech's Comments Sodium 145 Potassium 3.6 Chloride 105 Carbon Dioxide 29 Anion Gap 15 BUN 9 Creatinine 0.61 Estim Creat Clear Calc 55.5 Estimated GFR > 60 Random Glucose Fasting Glucose 80 Calcium 9.3 D Magnesium Total Bilirubin 0.2 AST 20 ALT 7 Alkaline Phosphatase 61 Troponin I High Sens Total Protein 6.9 Albumin 3.7 Lipase Stool Occult Blood Airway Mallampati Class: II (missing a couple) TM Dist: >3cm Neck ROM: Full Heart: rrr Lungs: cta Assessment and Plan Assessment Anesthesia Assessment: Anesthesia Plan Discussed and Chart Reviewed Final Anesthetic Review Family History of Problems with Anesthesia: No History of Problems with Anesthesia: No NPO: Yes ASA Class: III Final Preanesthetic Review: No Changes in Pt Med Stat, Meds/Allgs Chart Reviewed and Consent Obtained/Reviewed Patient Risk: Intermediate Procedure Risk: Intermediate Anesthetic Plan Anesthetic Plan: MAC: Disposition: Standard PACU
--- NOTE | 2025-01-31 13:26 | PC.NURSE ---
22g right forearm-no leaking and patent. no complaints
--- NOTE | 2025-01-31 14:51 | PM.EVENT ---
Event Note Date of Service: 01/31/25 Event Note: GI-Full note dictated EGD- 1. 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 Small hiatal hernia with changes of reflux-no esophagitis Colonoscopy to the cecum 1. Sigmoid diverticulosis 2. Minimal areas of erythema in rectum but no signs of proctitis--I suspect the areas of erythema are due to her constipation and enemas. I obtained some biopsies from the rectum. 3. 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 Consider an IV iron infusion before discharge. I spoke with her son, Alexander, and he stated that she does not always cooperate with taking her meds at home, including the Iron and bowel regimen. I reviewed all of the above with him and he agreed with the plan. Thanks. Time Spent With Patient Time: Total time managing care of this patient today ____ minutes.
--- NOTE | 2025-01-31 15:08 | HO.PM.IMPN ---
Subjective Subjective Date of Service: 02/01/25 Interval History: EGD/colon results noted recommendations implemented. No acute issues overnight Review of Systems Denies chest pain Denies shortness of breath Denies nausea vomiting diarrhea Denies fever chills Physical Exam Vital Signs: Vital Signs: Last Vital Signs Temp 97.7 F 01/31/25 14:51 Pulse 60 01/31/25 14:51 Resp 16 01/31/25 14:51 BP 143/59 H 01/31/25 14:51 Pulse Ox 95 01/31/25 14:51 O2 Del Method Room Air 01/31/25 14:51 O2 Flow Rate 4 01/31/25 14:33 BMI result Body Mass Index 21.7 Const: Other: Awake alert no acute distress Resp: Other: Clear to auscultation bilaterally no rales rhonchi or wheezes Cardio: Other: No S4; positive S1-S2; no S3 murmurs rubs or gallops GI: Other: Soft nontender nondistended normoactive bowel sounds Extrem: Other: No edema bilaterally Objective Data Active Medications Acetaminophen (Acetaminophen 325 Mg Tablet) 650 mg PO Q6H PRN PRN Reason: Pain, Mild 1-3,fever,headache Amlodipine Besylate (Amlodipine Besylate 10 Mg Tablet) 10 mg PO DAILY [facility]; Protocol Last Admin: 01/31/25 07:22 Dose: 10 mg Documented By: DIEGO Atorvastatin Calcium (Atorvastatin Calcium 10 Mg Tablet) 10 mg PO BEDTIME [facility] Last Admin: 01/30/25 20:46 Dose: 10 mg Documented By: REENA Bisacodyl (Bisacodyl 5 Mg Tablet.) 10 mg PO BEDTIME [facility] Last Admin: 01/30/25 20:46 Dose: 10 mg Documented By: REENA Calcium Carbonate (Calcium Carbonate 750 Mg Tab.Chew) 750 mg PO Q4H PRN PRN Reason: Heartburn Ferrous Sulfate (Ferrous Sulfate 324 Mg Tablet.) 324 mg PO DAILY [facility] Ceftriaxone Sodium 1 gm/ (Sodium Chloride) 50 mls @ 100 mls/hr IV Q24H [facility] Last Infusion: 01/30/25 22:57 Dose: Infused Documented By: REENA Levetiracetam (Levetiracetam 500 Mg Tablet) 500 mg PO BID [facility] Last Admin: 01/31/25 07:22 Dose: 500 mg Documented By: DIEGO Levothyroxine Sodium (Levothyroxine Sodium 112 Mcg Tablet) 112 mcg PO DAILY@0600 [facility] Last Admin: 01/31/25 06:05 Dose: 112 mcg Documented By: REENA Lisinopril (Lisinopril 5 Mg Tablet) 5 mg PO DAILY [facility]; Protocol Last Admin: 01/31/25 07:54 Dose: Not Given Documented By: DIEGO Non-Admin Reason: Procedure this AM Loratadine (Loratadine 10 Mg Tablet) 10 mg PO BEDTIME [facility] Last Admin: 01/30/25 20:46 Dose: 10 mg Documented By: REENA Magnesium Hydroxide (Milk Of Magnesia 30 Ml Oral.Susp) 30 ml PO DAILY PRN PRN Reason: Constipation Melatonin (Melatonin 3 Mg Tablet) 6 mg PO BEDTIME PRN PRN Reason: Insomnia Memantine (Memantine Hcl 10 Mg Tablet) 10 mg PO BEDTIME [facility] Last Admin: 01/30/25 20:46 Dose: 10 mg Documented By: REENA Naloxone HCl (Naloxone Hcl 0.4 Mg/Ml Vial) 0.04 mg IVPUSH Q5M PRN PRN Reason: Excessive sedation or RR < 8 Omeprazole (Omeprazole 40 Mg Capsule.Dr) 40 mg PO BID@0630,1630 [facility] Last Admin: 01/31/25 06:05 Dose: 40 mg Documented By: REENA Ondansetron HCl (Ondansetron Hcl 4 Mg/2 Ml Vial) 4 mg IVPUSH Q8H PRN PRN Reason: Nausea and Vomiting Last Admin: 01/28/25 14:54 Dose: 4 mg Documented By: OSBALDO Oxycodone HCl (Oxycodone Hcl Immed Release 5 Mg Tablet) 5 mg PO Q6H PRN PRN Reason: Pain, Severe (Pain Scale 7-10) Polyethylene Glycol (Polyethylene Glycol 3350 17 Gm Powd.Pack) 17 gm PO BID [facility] Last Admin: 01/31/25 07:55 Dose: Not Given Documented By: DIEGO Non-Admin Reason: NPO Senna/Docusate Sodium (Sennosides/Docusate Sodium Tablet) 2 tab PO BID [facility] Last Admin: 01/31/25 07:22 Dose: 2 tab Documented By: DIEGO Sertraline HCl (Sertraline Hcl 50 Mg Tablet) 50 mg PO DAILY [facility] Last Admin: 01/31/25 07:22 Dose: 50 mg Documented By: DIEGO Sodium Biphosphate/Sodium Phosphate (Sodium Phosphate,[place]-Dibasic 133 Ml Enema) 133 ml [place] ONCE PRN PRN Reason: Poor Colonoscopy Prep Results Last Admin: 01/31/25 10:16 Dose: 133 ml Documented By: AMNAIA Sodium Biphosphate/Sodium Phosphate (Sodium Phosphate,[place]-Dibasic 133 Ml Enema) 133 ml [place] ONCE PRN PRN Reason: Poor Colonoscopy Prep Results Last Admin: 01/31/25 10:16 Dose: 133 ml Documented By: DIEGO Sodium Chloride (0.9 % Sodium Chloride Flush 3 Ml Syringe) 3 ml IVFLUSH QSHIFT [facility] Last Admin: 01/31/25 07:22 Dose: 3 ml Documented By: DIEGO Tramadol HCl (Tramadol Hcl 50 Mg Tablet) 50 mg PO Q6H PRN PRN Reason: Pain, Moderate(Pain Scale 4-6) Labs 02/01/25 06:47 02/01/25 06:47 Labs: Laboratory Results - last 24 hr 01/31/25 05:57 MCV 81.6 MCH 24.0 L MCHC 29.4 L RDW 19.8 H Plt Count 226 MPV 12.3 Immature Gran % (Auto) 0.2 Neut % (Auto) 71.2 Lymph % (Auto) 16.6 L [place] % (Auto) 8.8 Eos % (Auto) 2.7 Baso % (Auto) 0.5 Lymph # (Auto) 0.9 L [place] # (Auto) 0.5 Eos # (Auto) 0.2 Baso # (Auto) 0.0 Abs Immat Gran (auto) 0.01 Absolute Neuts (auto) 4.0 Absolute Nucleated RBC 0.000 Nucleated RBC % (auto) 0.0 Anion Gap 15 Estim Creat Clear Calc 55.5 Estimated GFR > 60 Fasting Glucose 80 Calcium 9.3 D Total Bilirubin 0.2 AST 20 ALT 7 Alkaline Phosphatase 61 Total Protein 6.9 Albumin 3.7 Assessment and Plan (1) GI bleed: Status: Acute (2) Hypertension: Status: Acute Plan 79yo F with epilepsey, HLD, HTN, chronic respiratory failure on 2L O2 due to COPD, IBS, mood disorder, OA, cognitive impairment, Ford's esophagus, hypothyroidism presenting with hematemesis, hematochezia, abd pain, and constipation; found to have proctitis. Clear liquid diet today/colon prep for scope in a.m. 1.GI bleed -EGD/colon results reviewed -hemoglobin stable; iron infusion as per GI - IV PPI .. Switch to p.o. in a.m. - 2.Proctitis -no evidence by direct visualization -DC ceftriaxone/metronidazole (4) -further plans based on forthcoming data 3.Dilated bile ducts - likely due to cholecystectomy but per Surgery dilation has increased from prior, so recommend MRCP; will order as outpt 4.Seizures -stable and well compensated -continue outpatient therapies 5. Hypertension -acceptable control on current therapies -adjust as indicated 6. COPD (O2 requirement at home) -not an issue this admission -continue outpatient therapies Pneumatics Full code In my clinical judgment, the patient requires continued inpatient hospitalization for the following reasons: scope Quality Stroke Does the patient have a stroke diagnosis?: No VTE Prior VTE?: No VTE Risk Level:: Medical - moderate - high VTE Device Contraindication: N/A - Device Ordered VTE Drug Contraindication: Treatment Not Indicated
--- NOTE | 2025-01-31 16:24 | MHC.CM.PN ---
Per MD rounds Patient may be ready to discharge tomorrow. Scope scheduled for today. DP Home with resumption of [facility]NA. She will transport home with a family member.
--- NOTE | 2025-01-31 17:08 | P.BOP_ITS ---
Brief Operative Note Date of Service: 01/31/25 Pre-op diagnosis: GERD, Anemia, Abnormal CT of GI tract Post-op diagnosis: other (Nonbleeding AVM's of duodenum, GERD, Hiatal hernia, Diverticulosis) Procedure: EGD, Colonoscopy to the cecum with biopsies Surgeon: Juan R Lang MD Anesthesia: MAC Was an Ordnance Artificer used for this Procedure?: No Estimated blood loss (mL): 2.0 Pathology: other (A. Rectal biopsies) Condition: stable Disposition: PACU
--- NOTE | 2025-02-01 02:22 | OP_ITS ---
DATE OF SERVICE: 01/31/2025 SURGEON: Juan R Lang MD INDICATIONS: Patient presents for evaluation of anemia, constipation, and reported rectal bleeding. Full consent has been obtained from her for both procedures, including risks of bleeding and perforation. PREOPERATIVE DIAGNOSIS: POSTOPERATIVE DIAGNOSIS: PROCEDURE PERFORMED: Esophagogastroduodenoscopy and colonoscopy to the cecum with biopsy. ESTIMATED BLOOD LOSS: COMPLICATIONS: ANESTHESIA: Medication used, monitored anesthesia care. ASSISTANTS: SPECIMENS: PREOPERATIVE DIAGNOSES: Anemia, constipation, rectal bleeding. POSTOPERATIVE DIAGNOSES: Anemia, constipation, rectal bleeding, nonbleeding duodenal angiodysplasias, hiatal hernia, diverticulosis, internal hemorrhoids, areas of erythema in rectum. DESCRIPTION OF PROCEDURE: The patient was placed in the left lateral decubitus position. The Olympus video gastroscope was passed in the posterior oropharynx and upper esophagus under direct vision. The scope was passed slowly to the distal esophagus. The gastroesophageal junction appeared at 38 cm. There was some slight irregularity at this area consistent with reflux, but no evidence of any esophagitis nor any lesions. There was a small hiatal hernia. The scope was advanced to the pylorus and the duodenum was cannulated to the descending portion. There were multiple nonbleeding small, 2 or 3 mm angiodysplasias in the 2nd and 3rd portions of duodenum. There was no bleeding whatsoever. These were not treated given their number and the fact that they were not bleeding, and what I presume were probably more angiodysplasias in the mor distal small bowel as well. The duodenal bulb appeared normal. The scope was withdrawn back in the stomach. The gastric antrum and body appeared normal with good peristalsis. The scope was retroflexed visualizing the proximal stomach carefully, which appeared normal, without any sign of mass or ulceration. The scope was straightened and withdrawn back to esophagus. The esophageal mucosa otherwise appeared normal. The scope was withdrawn from the patient. She was turned around for the colonoscopy. The digital rectal examination revealed no abnormalities. The Olympus video pediatric colonoscope was entered into the rectum, advanced easily to the cecum. Once in the cecum, I did identify normal-appearing cecal pouch with appendiceal orifice and a normal-appearing ileocecal valve. There was transillumination of light deep in the right lower quadrant. The entire cecum was well visualized and appeared normal. The scope was then slowly withdrawn assessing all mucosal surface carefully. Preparation was excellent. I did not visualize any sign of polyps, colitis, nor angiodysplasia. There was a mild amount of sigmoid diverticulosis. In the rectum, the scope was retroflexed, visualizing some internal hemorrhoids. The scope was straightened. There were some areas of what appeared to be some acute erythema on the rectal mucosa, but this was very minimal. This did not appear to be consistent with proctitis and was most likely in relation to her recent constipation and enema therapy. I did obtain 2 biopsies from the rectum. However, I do not think this represented proctitis. The scope was withdrawn from the patient. She tolerated both procedures well and she was returned to the recovery area in stable condition. IMPRESSION: 1. Small hiatal hernia. 2. Nonbleeding angiodysplasias of duodenum. 3. Diverticulosis. 4. Internal hemorrhoids. PLAN: The results of the biopsies will be checked. At this point, she has been stable without any sign of active bleeding. Her hemoglobin today is 10.4 and she has not required any transfusions since admission. She did have a low iron saturation in December with an iron of 14, iron saturation of 5%, and ferritin of only 19. She does have a borderline microcytic anemia. At this point, I would advance her diet. I would continue her daily PPI. I do not think she needs it twice a day at this point unless her symptoms require that. I would avoid all aspirin and NSAIDs long-term given the angiodysplasias and potential for bleeding. I would continue oral iron and maintain her bowel regimen at home. I do not think she needs to be on a bowel regimen right now given the complete clean out after the colonoscopy. Her son, Alexander, advised me that she does not always cooperate with taking her medications at home including that of the iron and bowel regimen medications. She may benefit from an iron infusion before discharge in regard to the anemia. I do not think I would pursue any other workup given her overall condition and age at this point. This has all been reviewed with her son and he is comfortable with that plan. MD ELVIE Stoddard/JOHN / [phone] DONI
[2025-02-01 03:30] VITALS: BP 148/65; PULSE 84; RESP 14; TEMP 36.8; O2SAT 93
[2025-02-01 06:54] LABS: MANUAL DIFF FLAG NO
[2025-02-01 07:04] LABS: Hematocrit 30.4 % (37.0-47.0); Hemoglobin 9.3 g/dl (12.0-16.0); Imm Gran Abs Auto 0.06 X10*3/uL (0.00-0.03); Imm Gran Pct Auto 0.5 % (0.0-0.4); Lymphocytes Absolute Auto 1.1 X10*3/uL (1.2-4.9); Mean Corpuscular HGB Conc 30.6 g/dl (31.0-35.0); Mean Corpuscular Hemoglobin 24.3 pg (27.0-33.0); Mean Corpuscular Volume 79.6 fL (80.0-98.0); NRBC Abs Auto 0.000 X10*3/uL (0.0-0.012); NRBC Pct Auto 0.0 /100WBC (0.0-0.2); Platelet Count 209 X10*3/uL (160-400); Red Blood Count 3.82 X10*6/uL (4.20-5.50); White Blood Count 12.5 X10*3/uL (4.8-10.8)
[2025-02-01 07:13] VITALS: BP 128/54; PULSE 72; RESP 14; TEMP 36.7; O2SAT 94
[2025-02-01 07:21] LABS: Alanine Aminotransferase 7 U/L (0-31); Albumin Level 3.3 g/dL (3.5-5.0); Alkaline Phosphatase 60 U/L (39-117); Anion Gap 11 (12-20); Aspartate Amino Transferase 17 U/L (5-31); Blood Urea Nitrogen 14 mg/dL (9-16); Calcium 8.8 mg/dL (8.4-10.2); Carbon Dioxide 30 mmol/L (22-29); Chloride 105 mmol/L (96-108); Creatinine Clr Calc Pharmacy 43.9; Estimated Glomerular Filt Rate > 60; Potassium 4.1 mmol/L (3.3-5.1); Sodium 142 mmol/L (135-145); Total Protein 6.3 g/dL (6.5-8.0)
[2025-02-01] MEDS: 0.9 % Sodium Chloride Flush 3 ML SYRINGE IVFLUSH ×3 (07:56→23:06)
[2025-02-01] MEDS: Ferrous Sulfate 324 MG TABLET.DR PO (07:56)
--- NOTE | 2025-02-01 09:39 | HO.POSTANES ---
Post Anesthesia Evaluation Post Anesthesia Evaluation Date of Service: 02/01/25 Vital Signs: Vital Signs Temp Pulse Resp BP Pulse Ox O2 Del Method O2 Flow Rate 02/01/25 07:13 98.0 F 72 14 128/54 L 94 Nasal Cannula 2 02/01/25 03:30 98.2 F 84 14 148/65 H 93 Nasal Cannula 2 Anesthesia: Monitored Mental Status: Awake Pain Control: Satisfactory Nausea/Vomiting: None Hydration: Adequate Anesthesia-Related Issues: No Anes. Related Issues
--- NOTE | 2025-02-01 14:34 | P.PNIM_ITS ---
Subjective Subjective Date of Service: 02/01/25 Interval History: Slightly confused this a.m.. States feels ?washed out? Review of Systems Denies chest pain Denies shortness of breath Denies nausea vomiting diarrhea Denies fever chills Physical Exam 2 Vital Signs: Vital Signs: Last Vital Signs Temp 98.0 F 02/01/25 07:13 Pulse 72 02/01/25 07:13 Resp 14 02/01/25 07:13 BP 128/54 L 02/01/25 07:13 Pulse Ox 94 02/01/25 07:13 O2 Del Method Nasal Cannula 02/01/25 07:13 O2 Flow Rate 2 02/01/25 07:13 BMI result Body Mass Index 21.7 Const: Other: Awake alert no acute distress Resp: Other: Clear to auscultation bilaterally no rales rhonchi or wheezes Cardio: Other: No S4; positive S1-S2; no S3 murmurs rubs or gallops GI: Other: Soft nontender nondistended normoactive bowel sounds Extrem: Other: No edema bilaterally Objective Data Active Medications Acetaminophen (Acetaminophen 325 Mg Tablet) 650 mg PO Q6H PRN PRN Reason: Pain, Mild 1-3,fever,headache Last Admin: 02/01/25 06:11 Dose: 650 mg Documented By: REENA Amlodipine Besylate (Amlodipine Besylate 10 Mg Tablet) 10 mg PO DAILY [facility]; Protocol Last Admin: 02/01/25 07:56 Dose: 10 mg Documented By: DIEGO Atorvastatin Calcium (Atorvastatin Calcium 10 Mg Tablet) 10 mg PO BEDTIME [facility] Last Admin: 01/31/25 19:50 Dose: 10 mg Documented By: REENA Calcium Carbonate (Calcium Carbonate 750 Mg Tab.Chew) 750 mg PO Q4H PRN PRN Reason: Heartburn Ferrous Sulfate (Ferrous Sulfate 324 Mg Tablet.Dr) 324 mg PO DAILY [facility] Last Admin: 02/01/25 07:56 Dose: 324 mg Documented By: DIEGO Ceftriaxone Sodium 1 gm/ (Sodium Chloride) 50 mls @ 100 mls/hr IV Q24H [facility] Last Infusion: 01/31/25 23:11 Dose: Infused Documented By: REENA Levetiracetam (Levetiracetam 500 Mg Tablet) 500 mg PO BID [facility] Last Admin: 02/01/25 07:55 Dose: 500 mg Documented By: DIEGO Levothyroxine Sodium (Levothyroxine Sodium 112 Mcg Tablet) 112 mcg PO DAILY@0600 [facility] Last Admin: 02/01/25 05:30 Dose: 112 mcg Documented By: REENA Lisinopril (Lisinopril 5 Mg Tablet) 5 mg PO DAILY [facility]; Protocol Last Admin: 02/01/25 07:55 Dose: 5 mg Documented By: DIEGO Loratadine (Loratadine 10 Mg Tablet) 10 mg PO BEDTIME [facility] Last Admin: 01/31/25 19:51 Dose: 10 mg Documented By: REENA Magnesium Hydroxide (Milk Of Magnesia 30 Ml Oral.Susp) 30 ml PO DAILY PRN PRN Reason: Constipation Melatonin (Melatonin 3 Mg Tablet) 6 mg PO BEDTIME PRN PRN Reason: Insomnia Memantine (Memantine Hcl 10 Mg Tablet) 10 mg PO BEDTIME [facility] Last Admin: 01/31/25 19:50 Dose: 10 mg Documented By: REENA Naloxone HCl (Naloxone Hcl 0.4 Mg/Ml Vial) 0.04 mg IVPUSH Q5M PRN PRN Reason: Excessive sedation or RR < 8 Omeprazole (Omeprazole 20 Mg Capsule.Dr) 20 mg PO DAILY@0630 [facility] Last Admin: 02/01/25 05:30 Dose: 20 mg Documented By: REENA Ondansetron HCl (Ondansetron Hcl 4 Mg/2 Ml Vial) 4 mg IVPUSH Q8H PRN PRN Reason: Nausea and Vomiting Last Admin: 01/28/25 14:54 Dose: 4 mg Documented By: GILDARDOFAPedro Pablo Oxycodone HCl (Oxycodone Hcl Immed Release 5 Mg Tablet) 5 mg PO Q6H PRN PRN Reason: Pain, Severe (Pain Scale 7-10) Senna/Docusate Sodium (Sennosides/Docusate Sodium Tablet) 2 tab PO BID [facility] Last Admin: 02/01/25 07:55 Dose: 2 tab Documented By: DIEGO Sertraline HCl (Sertraline Hcl 50 Mg Tablet) 50 mg PO DAILY [facility] Last Admin: 02/01/25 07:55 Dose: 50 mg Documented By: DIEGO Sodium Biphosphate/Sodium Phosphate (Sodium Phosphate,Ralls-Dibasic 133 Ml Enema) 133 ml UT ONCE PRN PRN Reason: Poor Colonoscopy Prep Results Last Admin: 01/31/25 10:16 Dose: 133 ml Documented By: DIEGO Sodium Biphosphate/Sodium Phosphate (Sodium Phosphate,Ralls-Dibasic 133 Ml Enema) 133 ml UT ONCE PRN PRN Reason: Poor Colonoscopy Prep Results Last Admin: 01/31/25 10:16 Dose: 133 ml Documented By: DIEGO Sodium Chloride (0.9 % Sodium Chloride Flush 3 Ml Syringe) 3 ml IVFLUSH QSHIFT [facility] Last Admin: 02/01/25 07:56 Dose: 3 ml Documented By: DIEGO Tramadol HCl (Tramadol Hcl 50 Mg Tablet) 50 mg PO Q6H PRN PRN Reason: Pain, Moderate(Pain Scale 4-6) Labs 02/01/25 06:47 02/01/25 06:47 Labs: Laboratory Results - last 24 hr 02/01/25 06:47 MCV 79.6 L MCH 24.3 L MCHC 30.6 L RDW 19.5 H Plt Count 209 MPV 11.2 Immature Gran % (Auto) 0.5 H Neut % (Auto) 83.3 H Lymph % (Auto) 8.7 L [place] % (Auto) 6.6 Eos % (Auto) 0.7 Baso % (Auto) 0.2 Lymph # (Auto) 1.1 L [place] # (Auto) 0.8 Eos # (Auto) 0.1 Baso # (Auto) 0.0 Abs Immat Gran (auto) 0.06 H Absolute Neuts (auto) 10.4 H Absolute Nucleated RBC 0.000 Nucleated RBC % (auto) 0.0 Anion Gap 11 L Estim Creat Clear Calc 43.9 Estimated GFR > 60 Fasting Glucose 111 H Calcium 8.8 Total Bilirubin 0.2 AST 17 ALT 7 Alkaline Phosphatase 60 Total Protein 6.3 L Albumin 3.3 L Assessment and Plan (1) Anemia: Status: Acute Plan 79yo F with epilepsey, HLD, HTN, chronic respiratory failure on 2L O2 due to COPD, IBS, mood disorder, OA, cognitive impairment, Ford's esophagus, hypothyroidism presenting with hematemesis, hematochezia, abd pain, and constipation; found to have proctitis. Clear liquid diet today/colon prep for scope in a.m. 1.GI bleed -EGD/colon results reviewed -hemoglobin stable; iron infusion as per GI - IV PPI .. Switch to p.o. - 2.Proctitis -no evidence by direct visualization -DC ceftriaxone/metronidazole (4) -further plans based on forthcoming data 3.Dilated bile ducts - likely due to cholecystectomy but per Surgery dilation has increased from prior, so recommend MRCP; will order as outpt 4.Seizures -stable and well compensated -continue outpatient therapies 5. Hypertension -acceptable control on current therapies -adjust as indicated 6. COPD (O2 requirement at home) -not an issue this admission -continue outpatient therapies Pneumatics Full code In my clinical judgment, the patient requires continued inpatient hospitalization for the following reasons: scope Quality Stroke Does the patient have a stroke diagnosis?: No VTE Prior VTE?: No VTE Risk Level:: Medical - moderate - high VTE Device Contraindication: N/A - Device Ordered VTE Drug Contraindication: Treatment Not Indicated
[2025-02-01 15:56] VITALS: BP 149/67; PULSE 62; RESP 16; TEMP 36.3; O2SAT 97
[2025-02-01 20:00] VITALS: BP 160/62; PULSE 74; RESP 18; TEMP 36.4; O2SAT 92
[2025-02-02 03:27] VITALS: BP 167/82; PULSE 61; RESP 18; TEMP 37.1; O2SAT 96
[2025-02-02 07:37] VITALS: BP 182/75; PULSE 70; RESP 16; TEMP 37; O2SAT 94
[2025-02-02] MEDS: Ferrous Sulfate 324 MG TABLET.DR PO (08:13)
[2025-02-02] MEDS: 0.9 % Sodium Chloride Flush 3 ML SYRINGE IVFLUSH (08:19)
[2025-02-02 09:02] LABS: MANUAL DIFF FLAG NO
[2025-02-02 09:10] LABS: Hematocrit 30.0 % (37.0-47.0); Hemoglobin 9.2 g/dl (12.0-16.0); Imm Gran Abs Auto 0.02 X10*3/uL (0.00-0.03); Imm Gran Pct Auto 0.3 % (0.0-0.4); Lymphocytes Absolute Auto 1.2 X10*3/uL (1.2-4.9); Mean Corpuscular HGB Conc 30.7 g/dl (31.0-35.0); Mean Corpuscular Hemoglobin 24.3 pg (27.0-33.0); Mean Corpuscular Volume 79.2 fL (80.0-98.0); NRBC Abs Auto 0.000 X10*3/uL (0.0-0.012); NRBC Pct Auto 0.0 /100WBC (0.0-0.2); Platelet Count 244 X10*3/uL (160-400); Red Blood Count 3.79 X10*6/uL (4.20-5.50); White Blood Count 6.3 X10*3/uL (4.8-10.8)
[2025-02-02 09:18] LABS: Alanine Aminotransferase < 6 U/L (0-31); Albumin Level 3.1 g/dL (3.5-5.0); Alkaline Phosphatase 48 U/L (39-117); Anion Gap 12 (12-20); Aspartate Amino Transferase 15 U/L (5-31); Blood Urea Nitrogen 7 mg/dL (9-16); Calcium 8.7 mg/dL (8.4-10.2); Carbon Dioxide 28 mmol/L (22-29); Chloride 106 mmol/L (96-108); Creatinine Clr Calc Pharmacy 59.3; Estimated Glomerular Filt Rate > 60; Potassium 3.6 mmol/L (3.3-5.1); Sodium 142 mmol/L (135-145); Total Protein 6.1 g/dL (6.5-8.0)
--- NOTE | 2025-02-02 11:28 | MHC.CM.PN ---
Addendum entered by Jeannie Silva 02/02/25 13:58: Patients son will provide transportation home. Original Note: IMM02/02/25 Patient is discharged to home today with resumption of [facility]NA. She will arrange for transportation home.
--- NOTE | 2025-02-02 13:53 | PM.DS ---
DS: Providers Provider Date of Service: 02/02/25 Date of admission: 01/27/25 22:51 Date of discharge: 02/02/25 Primary care physician: Shane Nelson MD Consults: 01/27/25 22:59 Consult to Gastroenterology Routine Consulting Provider: Guillaume Mitchell Reason for consultation: hematemesis, +FOBT Has provider been notified: No 01/27/25 23:02 Consult to General Surgery Routine Consulting Provider: [facility] [place] [facility] Reason for consultation: biliary dilation, proctitis DS: Diagnosis Discharge Diagnosis (1) Anemia: Status: Acute (2) GI bleed: Status: Acute DS: Summary Hospital Course Hospital Course: 79 year female with a history significant epilepsy, hyperlipidemia, hypertension, chronic respiratory failure with hypoxia, COPD on 2 L at baseline, IBS, mood disorder, oa, cognitive impairment, Ford's esophagus and hypothyroid, who presented to the ED due to nausea, hematemesis, constipation and abdominal pain. The patient reports that she has impacted. She has not had a bowel movement x7 days. She has had a few episodes of hematemesis and reports melena as well as hematochezia. She denies any chest pain, shortness of breath, URI symptoms or urinary symptoms including frequency, urgency or dysuria. The patient is a poor historian. Hospital course Patient admitted to general medical floor and started on empiric ceftriaxone for presumed proctitis. She was seen in consultation by GI and on 01/31/2025 underwent EGD/colonoscopy to cecum. EGD- 1. 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 Small hiatal hernia with changes of reflux-no esophagitis Colonoscopy to the cecum 1. Sigmoid diverticulosis 2. Minimal areas of erythema in rectum but no signs of proctitis--I suspect the areas of erythema are due to her constipation and enemas. I obtained some biopsies from the rectum. 3. No AVM's, no polyps She was switch to oral PPI and diet advanced without issue. She did receive a dose of iron IV while she was here and will be maintained on oral iron as outpatient. She will follow up with GI as scheduled and PCP next available. Hospitalization/plan of care was discussed with cathie Munoz Time Attestation Discharge Coordination Time (in mins): 35 Quality: Safe Use of Opioids Does Pt have an Active Cancer Diagnosis on the Problem List?: No Quality: Stroke Does the patient have a stroke diagnosis?: No Physical Exam Vital Signs: Vital Signs: Last Vital Signs Temp 98.6 F 02/02/25 07:37 Pulse 70 02/02/25 07:37 Resp 16 02/02/25 07:37 BP 182/75 H 02/02/25 07:37 Pulse Ox 94 02/02/25 07:37 O2 Del Method Nasal Cannula 02/02/25 07:37 O2 Flow Rate 2.5 02/02/25 07:37 BMI result Body Mass Index 21.7 Const: Other: Awake alert no acute distress Resp: Other: Clear to auscultation bilaterally no rales rhonchi or wheezes Cardio: Other: No S4; positive S1-S2; no S3 murmurs rubs or gallops GI: Other: Soft nontender nondistended normoactive bowel sounds Extrem: Other: No edema bilaterally DS: Data Data Completed and Pending Completed studies during hospitalization [Text1]: Pending at discharge 01/31/25 14:28 Surgical [PTH] Routine Procedures Excision of Stomach, Via Natural or Artificial Opening Endoscopic, Diagnostic (12/25/24) Labs on day of discharge: Laboratory Results - last 24 hr 02/02/25 02/02/25 08:58 08:59 WBC 6.3 RBC 3.79 L Hgb 9.2 L Hct 30.0 L MCV 79.2 L MCH 24.3 L MCHC 30.7 L RDW 19.7 H Plt Count 244 MPV 11.9 Immature Gran % (Auto) 0.3 Neut % (Auto) 69.6 Lymph % (Auto) 18.6 L [place] % (Auto) 9.0 Eos % (Auto) 1.9 Baso % (Auto) 0.6 Lymph # (Auto) 1.2 [place] # (Auto) 0.6 Eos # (Auto) 0.1 Baso # (Auto) 0.0 Abs Immat Gran (auto) 0.02 Absolute Neuts (auto) 4.4 Absolute Nucleated RBC 0.000 Nucleated RBC % (auto) 0.0 Sodium 142 Potassium 3.6 Chloride 106 Carbon Dioxide 28 Anion Gap 12 BUN 7 L Creatinine 0.57 Estim Creat Clear Calc 59.3 Estimated GFR > 60 Fasting Glucose 89 Calcium 8.7 Total Bilirubin 0.2 AST 15 ALT < 6 Alkaline Phosphatase 48 Total Protein 6.1 L Albumin 3.1 L Discharge Plan Discharge Anticipated Discharge Date/Time: 02/02/25 13:48 Patient Disposition: Home Health Service Discharge Diagnosis: GI bleed Referrals: Edith JEFFERSON [Outside] - 1 Week Po,Shane Miller MD [Primary Care Provider, Internal Medicine] - 1 Week Discharge Medications: New ferrous sulfate 324 mg (65 mg iron) Tablet,Delayed Release (Dr/Ec) 324 mg PO DAILY Qty: 30 0RF Continued cetirizine 10 mg capsule 10 mg PO BEDTIME Qty: 90 3RF sertraline 50 mg tablet 50 mg PO DAILY Qty: 90 1RF levetiracetam 500 mg tablet 500 mg PO Q12H 90 Days Qty: 180 0RF simvastatin 20 mg tablet 20 mg PO BEDTIME 90 Days Qty: 90 2RF diphenoxylate-atropine 2.5-0.025 mg tablet 1 - 2 tab PO BID PRN (Reason: Diarrhea) lisinopril 5 mg Tablet 5 mg PO DAILY 30 Days Qty: 30 3RF Protocol: Hold for SBP< HOLD for SBP < : 90 sennosides-docusate sodium [Senna Plus] 8.6-50 mg Tablet 2 tab PO BEDTIME 30 Days Qty: 60 3RF amlodipine 10 mg Tablet 10 mg PO DAILY 30 Days Qty: 30 3RF Protocol: Hold for SBP< HOLD for SBP < : 90 omeprazole 40 mg capsule,delayed release(DR/EC) 40 mg PO BID@0630,1630 Patient Comments: Son Kendrick confirmed BID levothyroxine 112 mcg tablet 112 mcg PO DAILY@0600 memantine 10 mg tablet 10 mg PO BEDTIME (DME) blood pressure monitor [Blood Pressure Kit] Kit See Rx Instructions .ROUTE .MEDSUPPLY Qty: 1 0RF Rx Instructions: As directed (DME) POCKET CHAMBER Spacer See Rx Instructions .Route Qty: 1 0RF Rx Instructions: As directed Discharge Orders: Discharge Order (Routine); Ordered 02/02/25 Ordered By: Greg Douglas Diet: Advance to usual diet Activity on Discharge: As tolerated Stand Alone Forms: Patient Portal Discharge page Print Language: Serbian Care Plan Goals: Ferrous sulfate (iron) has been added to your regimen Health Concerns: Resume all other medicines as taken prior to hospitalization Plan of Treatment: Follow up with PCP and GI as scheduled Assessment: See discharge summary
[2025-02-02 15:29] VITALS: BP 176/81; PULSE 66; RESP 18; TEMP 36.2; O2SAT 97
== END 2025-02-02 17:04 | disposition home health service (06) | DRG 378 ==
LOC: HO.ED 17:46 → HO.EDOVER 22:54 → HO.S3 01-28 12:10
PROVIDERS: Internal Medicine; Physician Assistant Medical; Admitting Provider Physician Assistant; Emergency Provider Emergency Medicine; PCP Internal Medicine; Visit Provider Hospitalist
DX: K31.811 Angiodysplasia of stomach and duodenum with bleeding (principal); J96.11 Chronic respiratory failure with hypoxia; K83.8 Other specified diseases of biliary tract; K57.31 Diverticulosis of large intestine without perforation or abscess with bleeding; G40.909 Epilepsy, unspecified, not intractable, without status epilepticus; E78.5 Hyperlipidemia, unspecified; E03.9 Hypothyroidism, unspecified; I10 Essential (primary) hypertension; K59.00 Constipation, unspecified; K44.9 Diaphragmatic hernia without obstruction or gangrene; K64.8 Other hemorrhoids; J44.9 Chronic obstructive pulmonary disease, unspecified; Z99.81 Dependence on supplemental oxygen; Z79.890 Hormone replacement therapy; Z79.899 Other long term (current) drug therapy
CPT/HCPCS: 36415; 71045; 74018; 74177; 80053; 82272; 83690; 83735; 84484; 85007; 85025; 85027; 88305; 93005; 97161; 99285; J0131; J0696; J1756; J1836; J2003; J2405; J2470; J2704; J7120; Q9967

== ENCOUNTER → 2025-01-27 16:44 | Outpatient (BNV) | payer MEDICARE, SELFPAY | PROVIDERS: Emergency Provider Emergency Medicine; PCP Internal Medicine; Visit Provider Radiology Diagnostic Radiology | DX: N32.3 Diverticulum of bladder (principal); R09.02 Hypoxemia; K59.00 Constipation, unspecified | CPT/HCPCS: 71045; 74018 ==

== ENCOUNTER → 2025-01-27 16:44 | Outpatient (BNV) | payer MEDICARE, SELFPAY | PROVIDERS: Admitting Provider Physician Assistant; Emergency Provider Emergency Medicine; PCP Internal Medicine; Visit Provider Internal Medicine Cardiovascular Disease | DX: I49.1 Atrial premature depolarization (principal) | CPT/HCPCS: 93010 ==

== ENCOUNTER → 2025-01-27 22:51 | Outpatient (BNV) | payer MEDICARE, SELFPAY | PROVIDERS: Admitting Provider Physician Assistant; Emergency Provider Emergency Medicine; PCP Internal Medicine; Visit Provider Physician Assistant Surgical | DX: K83.8 Other specified diseases of biliary tract (principal) | CPT/HCPCS: 99222 ==

== ENCOUNTER → 2025-01-27 22:51 | Outpatient (BNV) | payer MEDICARE, SELFPAY | PROVIDERS: Admitting Provider Physician Assistant; Emergency Provider Emergency Medicine; PCP Internal Medicine; Visit Provider Family Medicine | DX: K92.2 Gastrointestinal hemorrhage, unspecified (principal); K62.89 Other specified diseases of anus and rectum; K83.8 Other specified diseases of biliary tract | CPT/HCPCS: 99223; 99232; 99233 ==

== ENCOUNTER 2025-03-20 16:52 | Observation (INO) | payer MEDICARE, SELFPAY ==
--- NOTE | ~2025-03-20 | CT_ITS ---
CLINICAL HISTORY: pain, feces from urethra, colovesicular fisula?? CT abdomen and pelvis with contrast Comparison: CT abdomen and pelvis 01/27/2025 Findings: Emphysematous changes in visualized lung bases. Mild diffuse hepatic steatosis. No focal liver lesions. Stable moderate intrahepatic and severe common bile duct dilation. Spleen, adrenal glands, are unremarkable. Scattered simple appearing cysts present throughout both kidneys. No hydronephrosis. No free air. No free fluid. Extensively calcified but otherwise nonaneurysmal abdominal aorta. Redemonstration of moderately distended urinary bladder containing several large posterior bladder diverticuli. Layering hyperdense material within the posterior dependent portions of the bladder diverticuli is unchanged. Nondistended stomach. Normal caliber small bowel. No obstruction. As before, there is moderate rectal wall thickening with extensive perirectal and presacral inflammatory changes. Conspicuity of these findings has increased compared to prior exam. No definite drainable fluid collection or abscess. Uterus is unremarkable. No definite pathologically enlarged lymph nodes. No acute osseous abnormality. No lytic or sclerotic osseous lesions. Impression: 1. No findings to suggest colovesical fistula. 2. Slight interval increase in overall extent and conspicuity of moderate circumferential rectal wall thickening and associated perirectal inflammatory changes. No definite drainable abscess or loculated fluid collection. 3. Stable moderate intrahepatic and severe common bile ductal dilation. These findings appear perhaps more pronounced than would be expected for normal physiologic postcholecystectomy state. If clinically indicated, correlation with laboratory findings for biliary obstruction should be considered. 4. Additional chronic/ nonacute findings as above. This document has been electronically signed by: Rafat Leo MD on 03/21/2025 00:00:08
--- NOTE | ~2025-03-20 | XR_ITS ---
CLINICAL HISTORY: CONSTIPATED, VOMITTING Abdominal radiograph Comparison: CT/REG/SR - CT ABDOMEN PELVIS W IV CON - 01/27/25 20:22 EDT CR - XR KUB - 01/27/25 18:21 EDT Findings: There is a nonobstructive bowel gas pattern. Stool quantity is moderately increased, particularly in the rectum. No pneumoperitoneum or pneumatosis. No acute osseous or soft tissue abnormality. Impression: Moderately increased stool quantity is consistent with the given history of constipation. Prominent amount of stool in the rectum may indicate fecal impaction. This document has been electronically signed by: Lissy Power MD on 03/20/2025 18:30:57
[2025-03-20 16:59] VITALS: BP 144/102; PULSE 110; O2SAT 85
[2025-03-20 17:02] VITALS: BP 144/78; PULSE 81; RESP 20; TEMP 36.7; O2SAT 99; BMI 16.1
--- NOTE | 2025-03-20 17:19 | ECG_ITS ---
Test Reason : abd pain Blood Pressure : */* mmHG Vent. Rate : 84 BPM Atrial Rate : 84 BPM P-R Int : 160 ms QRS Dur : 74 ms QT Int : 326 ms P-R-T Axes : 72 65 253 degrees QTcB Int : 385 ms Normal sinus rhythm ST & T wave abnormality, consider inferolateral ischemia Abnormal ECG When compared with ECG of 27-Jan-2025 17:37, Aberrant conduction is no longer Present Referred By: Generic ED Physician Electronically Signed By: Bang Kitchen
[2025-03-20 17:50] LABS: OBS Int Ctl Valid YES; OBS1 POSITIVE (NEGATIVE)
[2025-03-20 18:04] LABS: Alanine Aminotransferase 9 U/L (0-31); Albumin Level 4.3 g/dL (3.5-5.0); Alkaline Phosphatase 72 U/L (39-117); Anion Gap 17 (12-20); Aspartate Amino Transferase 23 U/L (5-31); Blood Urea Nitrogen 15 mg/dL (9-16); Calcium 9.8 mg/dL (8.4-10.2); Carbon Dioxide 28 mmol/L (22-29); Chloride 105 mmol/L (96-108); Creatinine Clr Calc Pharmacy 35.8; Estimated Glomerular Filt Rate > 60; Lipase 25 U/L (8-78); Magnesium 1.8 mg/dL (1.6-2.6); Mean Corpuscular Volume 82.7 fL (80.0-98.0); NRBC Abs Auto 0.000 X10*3/uL (0.0-0.012); NRBC Pct Auto 0.0 /100WBC (0.0-0.2); Potassium 3.8 mmol/L (3.3-5.1); SCAN SMEAR FLAG 1; Sodium 146 mmol/L (135-145); Total Protein 7.5 g/dL (6.5-8.0)
[2025-03-20 18:05] LABS: Hematocrit 42.0 % (37.0-47.0); Hemoglobin 12.8 g/dl (12.0-16.0); Imm Gran Abs Auto 0.01 X10*3/uL (0.00-0.03); Imm Gran Pct Auto 0.2 % (0.0-0.4); Lymphocytes Absolute Auto 1.0 X10*3/uL (1.2-4.9); MANUAL DIFF FLAG SCAN; Mean Corpuscular HGB Conc 30.5 g/dl (31.0-35.0); Mean Corpuscular Hemoglobin 25.2 pg (27.0-33.0); Platelet Count 246 X10*3/uL (160-400); Red Blood Count 5.08 X10*6/uL (4.20-5.50); White Blood Count 4.0 X10*3/uL (4.8-10.8)
[2025-03-20 18:07] LABS: PLT ABN DIST 1
[2025-03-20 18:25] LABS: Resp Syncy Virus RNA Qual PCR NEGATIVE (Negative); SARS COV2 PCR INHOUSE NEGATIVE (Negative)
[2025-03-20 18:55] VITALS: BP 162/66; PULSE 63; RESP 16; O2SAT 100
--- NOTE | 2025-03-20 20:37 | PC.NURSE ---
Tristan, patient's son called, asking for update. Information given, phone number [phone] for Alexander if patient needs ride home/ any additional questions.
[2025-03-20 21:48] VITALS: BP 177/66; PULSE 71; RESP 15; TEMP 36.7; O2SAT 94
--- NOTE | 2025-03-20 21:58 | PC.NURSE ---
Patient has yet to void while in ED. T/w BS for 280 ccs. SC attempted x 2 w/ LEI MAKER Gisela for UA sample collection. Unable to get urine return / patient constantly stooling s/p disimpaction. ED provider made aware.
[2025-03-20 22:59] LABS: Hematocrit 39.7 % (37.0-47.0); Hemoglobin 12.3 g/dl (12.0-16.0)
[2025-03-20] MEDS: iohexoL 350 MG/ML 100 ML INFUS..BTL 85 ML IV (23:08)
[2025-03-21] VITALS (7 sets, daily range): BP systolic 144–183; BP diastolic 60–80; PULSE 55–72; RESP 16–20; TEMP 36.4–37; O2SAT 99–100; BMI 16.3
--- NOTE | 2025-03-21 00:53 | MHC.EDTECH ---
Audra care was provided to patient by this registered dietetic technician and Shawnee MANCILLA.
--- NOTE | 2025-03-21 02:00 | ED.GENADULT ---
HPI - General Adult General Chief complaint: Abdominal Pain Stated complaint: ABD PAIN,CONSTIPATION,NAUSEA,VOMITING X4D PER EMS Time Seen by Provider: 03/20/25 20:26 Source: patient Limitations: no limitations History of Present Illness ED Provider: Andree Mills PA-C HPI narrative: 79-year-old female with a history of hypertension, hyperlipidemia, COPD, hypothyroidism, GERD, IBS, cognitive impairment, osteoarthritis, gait instability who presents with the abdominal pain. Patient states she has not had a bowel movement in 4 days, and developed nausea vomiting today. Denies distention or inability to pass flatus. Denies fever. Related Data Home Medications ?Medication ?Instructions ?Recorded ?Confirmed diphenoxylate-atropine 2.5 1 - 2 tab PO BID PRN Diarrhea 07/07/24 02/03/25 mg-0.025 mg tablet memantine 10 mg tablet 10 mg PO BEDTIME 01/28/25 02/03/25 omeprazole 40 mg capsule,delayed 40 mg PO BID@0630,1630 01/28/25 02/03/25 release Previous Rx's ?Medication ?Instructions ?Recorded blood pressure monitor (Blood #1 ea 05/06/22 Pressure Kit) inhalational spacing device #1 ea 08/18/23 (POCKET CHAMBER spacer) cetirizine 10 mg capsule 10 mg PO BEDTIME Allergy Symptoms 07/26/24 #90 caps sertraline 50 mg tablet 50 mg PO DAILY #90 tabs 08/06/24 amlodipine 10 mg tablet 10 mg PO DAILY 30 days #30 tabs 12/28/24 lisinopril 5 mg tablet 5 mg PO DAILY 30 days #30 tabs 12/28/24 sennosides 8.6 mg-docusate sodium 2 tab PO BEDTIME 30 days #60 tabs 12/28/24 50 mg tablet (Senna Plus) levetiracetam 500 mg tablet 500 mg PO Q12H 90 days #180 tabs 01/27/25 simvastatin 20 mg tablet 20 mg PO BEDTIME 90 days #90 tabs 01/29/25 ferrous sulfate 324 mg (65 mg 324 mg PO DAILY #30 tabs 02/02/25 iron) tablet,delayed release levothyroxine 112 mcg tablet 112 mcg PO DAILY@0600 #90 tabs 02/08/25 Allergies Allergy/AdvReac Type Severity Reaction Status Date / Time amoxicillin (AMOXICILLIN) Allergy Intermediate STOMACH Verified 03/20/25 17:17 ISSUES pollen extracts (POLLEN) Allergy Mild RUNNY Verified 03/20/25 17:17 NOSE, SNEEZING, ITCHY EYES Sulfa (Sulfonamide Allergy Unknown Verified 03/20/25 17:17 Antibiotics) Review of Systems Review of Systems: Yes all other systems are reviewed and are negative Constitutional: Constitutional: Denies fatigue and Denies fever(s) Cardiovascular: Cardiovascular: Denies chest pain and Denies dyspnea Respiratory: Respiratory: Denies dyspnea Gastrointestinal: Gastrointestinal: Denies bloating, Reports constipation, Reports nausea and Reports vomiting Genitourinary: Genitourinary: Denies dysuria Endocrine: Endocrine: Denies fatigue PMF Past Medical History Attestation statement: The following information was validated with the patient. Medical History (Updated 03/21/25 @ 02:09 by SIOMARA Perez) Dilated cbd, acquired Anemia Anemia Hypertension Generalized anxiety disorder Nocturnal hypoxemia Acute rhinosinusitis Microscopic hematuria Renal cyst Osteoarthritis, knee COPD (chronic obstructive pulmonary disease) Acute and chronic respiratory failure with hypoxia COPD exacerbation LFT elevation Shortness of breath Rash Bilateral knee pain Hematuria Frequent falls Left-sided back pain Seizure disorder Allergic rhinitis Generalized abdominal pain Initial Medicare annual wellness visit Screening for osteoporosis Hypoxemia Syncope Nausea Chronic diarrhea Diarrhea Bile salt-induced diarrhea Cutaneous lupus erythematosus Osteoarthritis Vitamin D deficiency COPD (chronic obstructive pulmonary disease) Ford's esophagus GERD (gastroesophageal reflux disease) Hypothyroid Surgical History History of cataract surgery History of rectal surgery History of ear surgery History of cholecystectomy History of eye surgery Family History Family History Father Lymphoma Lung cancer Mother Hypertension Diabetes Sister Brain cancer Social History Social History Household Members: Children Household Members Other:: son, daughter in law, granchildren Housing: Other Housing Other:: Trailer Are you a primary home care coordinator to a significant other at home: No Do you presently have visiting nurse or other home services: Yes Alcohol intake: former Patient Tobacco Use Status: Former Tobacco user Tobacco use type: Cigarette Smoked in Last 30 Days: No e-Cigarette/Vaping Use: Never Used Second Hand Smoke Exposure: Yes Use of substances other than those prescribed or required for medical reasons: No Advance Directives: Yes Advance Directives on File: Yes Advance Directives Date on File: 08/04/23 Do you have a plan to hurt others: No Plan service: No Current occupational status: retired Cognitive needs: Yes (Walker, Cane) Hearing needs: Yes (hearing aide) Vision needs: Yes (Glasses) Physical Exam ED Vital Signs: Vital Signs - 24 hr 03/20/25 17:02 03/20/25 18:55 03/20/25 21:48 Temperature 98.0 F 98.1 F Pulse Rate 81 63 71 Respiratory Rate 20 16 15 Blood Pressure 144/78 H 162/66 H 177/66 H Pulse Oximetry 99 100 94 Oxygen Delivery Method Nasal Cannula Nasal Cannula Nasal Cannula Oxygen Flow Rate 3 3 03/21/25 00:33 Temperature 98.6 F Pulse Rate 62 Respiratory Rate 18 Blood Pressure 144/60 H Pulse Oximetry 100 Oxygen Delivery Method Nasal Cannula Oxygen Flow Rate 3 BMI result Body Mass Index 16.1 Const Other: Alert, cachectic Orientation/consciousness: patient oriented x3 Resp Effort & Inspection: normal respiratory effort Cardio Other: Normal peripheral perfusion GI Other: Soft nontender no guarding no distention, fecal impaction noted, large bowel movement consisting of melena noted, then with loose stool, guaiac positive Skin Other: Warm dry no rash Neuro General: patient oriented x3, no focal motor deficits and CN's II-XI intact bilaterally Psych Other: Cooperative Medications Administered Generic Name Dose Route Start Last Admin Trade Name Freq PRN Reason Stop Dose Admin Metronidazole 500 mg in 100 mls @ 100 mls/hr 03/21/25 02:05 03/21/25 02:26 Flagyl IV 03/21/25 03:04 100 mls/hr ONCE ONE Administration Discontinued Medications Generic Name Dose Route Start Last Admin Trade Name Freq PRN Reason Stop Dose Admin Ceftriaxone Sodium 2 gm/ 50 mls @ 100 mls/hr 03/21/25 02:09 03/21/25 02:26 Sodium Chloride IV 03/21/25 02:38 100 mls/hr ONCE ONE Administration Iohexol 85 ml 03/20/25 23:03 03/20/25 23:08 Iohexol 350 Mg/Ml 100 Ml Infus..Btl IV 03/20/25 23:04 85 ml ONCE ONE Administration Metoclopramide HCl 10 mg 03/20/25 21:32 03/20/25 21:54 Metoclopramide Hcl 10 Mg/2 Ml Vial IVPUSH 03/20/25 21:33 10 mg ONCE ONE Administration Pantoprazole Sodium 40 mg 03/20/25 21:32 03/20/25 21:53 Pantoprazole Sodium 40 Mg/10 Ml Vial IVPUSH 03/20/25 21:33 40 mg ONCE ONE Administration Medical Decision Making Medical Decision Making MDM Narrative: 79-year-old female with a history of ongoing constipation, hypertension, hyperlipidemia, COPD, hypothyroidism, GERD, IBS, cognitive impairment, osteoarthritis, gait instability who presents with the abdominal pain. Patient states she has not had a bowel movement in 4 days, and developed nausea vomiting today. Denies distention or inability to pass flatus. Denies fever. Problem: Age, IBS, chronic constipation History: Per patient I have considered the following differential diagnoses: Constipation, fecal impaction, bowel obstruction, GI bleed, urinary tract infection Plan: On exam, the patient was actively having a soft bowel movement that was melena, followed by additional loose stool that was also dark, she is guaiac positive. We will be giving Protonix and Zofran with a small amount of IV fluid. We will repeat your H&H. Nursing was going to obtain a straight catheterization, however her anatomy is quite difficult, you can not visualize her urethra, I tried myself. There was also concern that stool maybe coming out of the generalized vaginal/urethral region as well, obtaining a CT scan to rule out colovesicular fistula. I foresee her requiring antibiotics, adding a blood cultures and a lactic. I have independently reviewed the following tests: Labs: No leukocytosis, not anemic, H&H 12.8 and 42, repeat H&H essentially the same at 12.3 and 39.7, no electrolyte abnormality, lactic 0.7, guaiac positive kub: Findings: There is a nonobstructive bowel gas pattern. Stool quantity is moderately increased, particularly in the rectum. No pneumoperitoneum or pneumatosis. No acute osseous or soft tissue abnormality. Impression: Moderately increased stool quantity is consistent with the given history of constipation. Prominent amount of stool in the rectum may indicate fecal impaction. CT abdomen and pelvis:Impression: 1. No findings to suggest colovesical fistula. 2. Slight interval increase in overall extent and conspicuity of moderate circumferential rectal wall thickening and associated perirectal inflammatory changes. No definite drainable abscess or loculated fluid collection. 3. Stable moderate intrahepatic and severe common bile ductal dilation. These findings appear perhaps more pronounced than would be expected for normal physiologic postcholecystectomy state. If clinically indicated, correlation with laboratory findings for biliary obstruction should be considered. 4. Additional chronic/ nonacute findings as above. Differential Diagnosis Differential Diagnoses: The differential diagnosis associated with the presentation includes See [facility] Admission/Observation Consideration of admission/observation: Escalation of care including admission/observation considered Admit required Consult Healthcare Provider Management of the patient was discussed with: Hospitalist and Network Operations Project Manager GI Lab Data [facility] Lab Attestation statement: I reviewed the patient's lab results. 03/20/25 22:54 03/20/25 17:31 Labs: Lab Results 03/20/25 03/20/25 03/20/25 Range/Units 17:31 17:32 22:40 WBC 4.0 L (4.8-10.8) X10*3/uL RBC 5.08 D (4.20-5.50) X10*6/uL Hgb 12.8 D (12.0-16.0) g/dl Hct 42.0 D (37.0-47.0) % MCV 82.7 (80.0-98.0) fL MCH 25.2 L (27.0-33.0) pg MCHC 30.5 L (31.0-35.0) g/dl RDW 17.2 H (11.0-16.0) % Plt Count 246 (160-400) X10*3/uL MPV 10.4 (9.4-12.3) fL Immature Gran % (Auto) 0.2 (0.0-0.4) % Neut % (Auto) 66.0 (45-73) % Lymph % (Auto) 25.8 (20-40) % [place] % (Auto) 5.5 (2-11) % Eos % (Auto) 1.5 (0-4) % Baso % (Auto) 1.0 (0-2) % Lymph # (Auto) 1.0 L (1.2-4.9) X10*3/uL [place] # (Auto) 0.2 (0.1-1.2) X10*3/uL Eos # (Auto) 0.1 (0.0-0.4) X10*3/uL Baso # (Auto) 0.0 (0.0-0.2) X10*3/uL Abs Immat Gran (auto) 0.01 (0.00-0.03) X10*3/uL Absolute Neuts (auto) 2.7 (2.0-8.3) x10*3/uL Absolute Nucleated RBC 0.000 (0.0-0.012) X10*3/uL Nucleated RBC % (auto) 0.0 (0.0-0.2) /100WBC Smear Tech's Comments VERIFIED Hold Blue Top SEE NOTE Sodium 146 H (135-145) mmol/L Potassium 3.8 (3.3-5.1) mmol/L Chloride 105 (96-108) mmol/L Carbon Dioxide 28 (22-29) mmol/L Anion Gap 17 (12-20) BUN 15 (9-16) mg/dL Creatinine 0.84 (0.5-1.4) mg/dL Estim Creat Clear Calc 35.8 Estimated GFR > 60 Random Glucose 115 (60-115) mg/dL Lactic Acid 0.7 (0.5-2.0) mmol/L Calcium 9.8 D (8.4-10.2) mg/dL Magnesium 1.8 (1.6-2.6) mg/dL Total Bilirubin 0.3 (0.0-1.0) mg/dL AST 23 (5-31) U/L ALT 9 (0-31) U/L Alkaline Phosphatase 72 (39-117) U/L Total Protein 7.5 (6.5-8.0) g/dL Albumin 4.3 (3.5-5.0) g/dL Lipase 25 (8-78) U/L Stool Occult Blood POSITIVE (NEGATIVE) Influenza Type A (PCR) NEGATIVE (Negative) Influenza Type B (PCR) NEGATIVE (Negative) RSV RNA Qual (PCR) NEGATIVE (Negative) SARS-CoV-2 RNA (RT-PCR) NEGATIVE (Negative) 03/20/25 Range/Units 22:54 WBC (4.8-10.8) X10*3/uL RBC (4.20-5.50) X10*6/uL Hgb 12.3 (12.0-16.0) g/dl Hct 39.7 (37.0-47.0) % MCV (80.0-98.0) fL MCH (27.0-33.0) pg MCHC (31.0-35.0) g/dl RDW (11.0-16.0) % Plt Count (160-400) X10*3/uL MPV (9.4-12.3) fL Immature Gran % (Auto) (0.0-0.4) % Neut % (Auto) (45-73) % Lymph % (Auto) (20-40) % [place] % (Auto) (2-11) % Eos % (Auto) (0-4) % Baso % (Auto) (0-2) % Lymph # (Auto) (1.2-4.9) X10*3/uL [place] # (Auto) (0.1-1.2) X10*3/uL Eos # (Auto) (0.0-0.4) X10*3/uL Baso # (Auto) (0.0-0.2) X10*3/uL Abs Immat Gran (auto) (0.00-0.03) X10*3/uL Absolute Neuts (auto) (2.0-8.3) x10*3/uL Absolute Nucleated RBC (0.0-0.012) X10*3/uL Nucleated RBC % (auto) (0.0-0.2) /100WBC Smear Tech's Comments Hold Blue Top Sodium (135-145) mmol/L Potassium (3.3-5.1) mmol/L Chloride (96-108) mmol/L Carbon Dioxide (22-29) mmol/L Anion Gap (12-20) BUN (9-16) mg/dL Creatinine (0.5-1.4) mg/dL Estim Creat Clear Calc Estimated GFR Random Glucose (60-115) mg/dL Lactic Acid (0.5-2.0) mmol/L Calcium (8.4-10.2) mg/dL Magnesium (1.6-2.6) mg/dL Total Bilirubin (0.0-1.0) mg/dL AST (5-31) U/L ALT (0-31) U/L Alkaline Phosphatase (39-117) U/L Total Protein (6.5-8.0) g/dL Albumin (3.5-5.0) g/dL Lipase (8-78) U/L Stool Occult Blood (NEGATIVE) Influenza Type A (PCR) (Negative) Influenza Type B (PCR) (Negative) RSV RNA Qual (PCR) (Negative) SARS-CoV-2 RNA (RT-PCR) (Negative) Radiology Impression Discussion of test interpretation with radiology: I have reviewed the radiologist's reading. Discharge Plan Discharge Clinical Impression: Acute proctitis, Fecal impaction, Acute upper gastrointestinal bleeding Constipation Qualifiers: Constipation type: unspecified constipation type Qualified Code(s): K59.00 - Constipation, unspecified Patient Disposition: Admitted As Inpatient Print Language: Belarusian
--- NOTE | 2025-03-21 02:22 | MHC.EDTECH ---
This textile science technician assisted patient up to the commode to attempt to obtain a urine sample. Patient has an unsteady gait but does okay with one assist and pivot on to the commode. Patient was able to urinate 300ml of dark yellow urine. I was unable to obtain sample because stool mixed in with urine. Purewick was then put in place per provider's request. Patient stated she understood the reason for the purewick and was given another cup of water so she can produce urine. Call rojas in reach.
[2025-03-21] MEDS: metroNIDAZOLE/NS 500 MG/100 ML PIGGYBACK 100 MG IV (02:26)
--- NOTE | 2025-03-21 03:03 | P.HPHOSP_ITS ---
History of Present Illness Date of Service: 03/21/25 Chief Complaint: constipation An 79-year-old female with a PMH of chronic constipation, COPD with chronic hypoxic respiratory failure on 2 L O2 at baseline, hypertension, hyperlipidemia, hypothyroidism, GERD/Ford?s esophagus, IBS, epilepsy, cognitive impairment, osteoarthritis, and gait instability presents from home with abdominal pain, constipation, and acute nausea/vomiting. The patient reports no bowel movement for 4 days, with onset of nausea and vomiting earlier today. She denies abdominal distention, inability to pass flatus, or fever. In the emergency department, she was noted to have large- volume melena on rectal examination. She is a limited historian. CT abdomen/pelvis demonstrated recurrent proctitis with significant fecal burden. Manual rectal disimpaction was performed in the ED with evacuation of copious stool. There was stool contamination in the perineal and vaginal region, raising concern for a possible concurrent urinary tract infection; urine studies are pending. She was started empirically on ceftriaxone and metronidazole. She has remained hemodynamically stable and afebrile. Laboratory evaluation showed a lactate of 0.7 mmol/L and stable hemoglobin/hematocrit at 12.3 / 39.7, unchanged on repeat testing. Of note, the patient was hospitalized approximately two months ago for similar symptoms including constipation, nausea, hematemesis, melena, and hematochezia. During that admission, she underwent EGD and colonoscopy to the cecum (01/31/2025). EGD revealed multiple non-bleeding duodenal AVMs and a small hiatal hernia without esophagitis. Colonoscopy showed sigmoid diverticulosis and mild rectal erythema felt to be secondary to constipation and enemas; biopsies were obtained, and no active proctitis, AVMs, or polyps were identified. She was treated with ceftriaxone for presumed proctitis, transitioned to oral PPI, received IV iron, and was discharged in stable condition with GI follow-up. Given recurrent proctitis, fecal impaction, melena, and inability to safely manage symptoms outpatient, she is being admitted for further management, bowel regimen optimization, infection evaluation, and monitoring. Review of Systems 2 Review of Systems: Yes all other systems are reviewed and are negative [facility] Medical History Dilated cbd, acquired Anemia Anemia Hypertension Generalized anxiety disorder Nocturnal hypoxemia Acute rhinosinusitis Microscopic hematuria Renal cyst Osteoarthritis, knee COPD (chronic obstructive pulmonary disease) Acute and chronic respiratory failure with hypoxia COPD exacerbation LFT elevation Shortness of breath Rash Bilateral knee pain Hematuria Frequent falls Left-sided back pain Seizure disorder Allergic rhinitis Generalized abdominal pain Initial Medicare annual wellness visit Screening for osteoporosis Hypoxemia Syncope Nausea Chronic diarrhea Diarrhea Bile salt-induced diarrhea Cutaneous lupus erythematosus Osteoarthritis Vitamin D deficiency COPD (chronic obstructive pulmonary disease) Ford's esophagus GERD (gastroesophageal reflux disease) Hypothyroid Family History Father Lymphoma Lung cancer Mother Hypertension Diabetes Sister Brain cancer Surgical History History of cataract surgery History of rectal surgery History of ear surgery History of cholecystectomy History of eye surgery Social History Household Members: Children Household Members Other:: son, daughter in law, granchildren Housing: Other Housing Other:: Trailer Are you a primary point of care technician to a significant other at home: No Do you presently have visiting nurse or other home services: Yes Alcohol intake: former Patient Tobacco Use Status: Former Tobacco user Tobacco use type: Cigarette Smoked in Last 30 Days: No e-Cigarette/Vaping Use: Never Used Second Hand Smoke Exposure: Yes Use of substances other than those prescribed or required for medical reasons: No Advance Directives: Yes Advance Directives on File: Yes Advance Directives Date on File: 08/04/23 Do you have a plan to hurt others: No Plan service: No Current occupational status: retired Cognitive needs: Yes (Walker, Cane) Hearing needs: Yes (hearing aide) Vision needs: Yes (Glasses) Meds Allergies Allergy/AdvReac Type Severity Reaction Status Date / Time amoxicillin (AMOXICILLIN) Allergy Intermediate STOMACH Verified 03/20/25 17:17 ISSUES pollen extracts (POLLEN) Allergy Mild RUNNY Verified 03/20/25 17:17 NOSE, SNEEZING, ITCHY EYES Sulfa (Sulfonamide Allergy Unknown Verified 03/20/25 17:17 Antibiotics) Active Medications: Current Medications Metronidazole (Flagyl) 500 mg in 100 mls @ 100 mls/hr IV ONCE ONE Stop: 03/21/25 03:04 Last Admin: 03/21/25 02:26 Dose: 100 mls/hr Home Medications ?Medication ?Instructions ?Recorded ?Confirmed ?Last Taken ?Type diphenoxylate-atropine 2.5 1 - 2 tab PO BID PRN Diarrh ea 07/07/24 02/03/25 01/26/25 History mg-0.025 mg tablet memantine 10 mg tablet 10 mg PO BEDTIME 01/28/2501/26/25 History omeprazole 40 mg capsule,delayed 40 mg PO BID@0630,163 0 01/28/25 02/03/25 01/26/25 History release Physical Exam 2 Vital Signs and Narrative: Vital Signs: Last Vital Signs Temp 98.6 F 03/21/25 00:33 Pulse 62 03/21/25 00:33 Resp 18 03/21/25 00:33 BP 144/60 H 03/21/25 00:33 Pulse Ox 100 03/21/25 00:33 O2 Del Method Nasal Cannula 03/21/25 00:33 O2 Flow Rate 3 03/21/25 00:33 Oxygen Flow Rate 3 03/20/25 17:02 BMI result Body Mass Index 16.1 Const: Other: Constitutional : interactive, not in distress Cardiovascular : no JVP, no lower extremity edema Respiratory : bilateral chest movement, not in resp distress Gastrointestinal: soft, lax, Non tender Skin : Warm, Dry Neurological : Alert & oriented , No focal deficit Results Labs 03/20/25 22:54 03/20/25 17:31 Labs: Laboratory Results - last 24 hr 03/20/25 03/20/25 03/20/25 17:31 17:32 22:40 MCV 82.7 MCH 25.2 L MCHC 30.5 L RDW 17.2 H Plt Count 246 MPV 10.4 Immature Gran % (Auto) 0.2 Neut % (Auto) 66.0 Lymph % (Auto) 25.8 [place] % (Auto) 5.5 Eos % (Auto) 1.5 Baso % (Auto) 1.0 Lymph # (Auto) 1.0 L [place] # (Auto) 0.2 Eos # (Auto) 0.1 Baso # (Auto) 0.0 Abs Immat Gran (auto) 0.01 Absolute Neuts (auto) 2.7 Absolute Nucleated RBC 0.000 Nucleated RBC % (auto) 0.0 Smear Tech's Comments VERIFIED Hold Blue Top SEE NOTE Anion Gap 17 Estim Creat Clear Calc 35.8 Estimated GFR > 60 Random Glucose 115 Lactic Acid 0.7 Calcium 9.8 D Magnesium 1.8 Total Bilirubin 0.3 AST 23 ALT 9 Alkaline Phosphatase 72 Total Protein 7.5 Albumin 4.3 Lipase 25 Stool Occult Blood POSITIVE Influenza Type A (PCR) NEGATIVE Influenza Type B (PCR) NEGATIVE RSV RNA Qual (PCR) NEGATIVE SARS-CoV-2 RNA (RT-PCR) NEGATIVE Assessment and Plan (1) GERD (gastroesophageal reflux disease): Status: Acute (2) Intractable vomiting: Status: Acute (3) Constipation: Qualifiers: Constipation type: unspecified constipation type Qualified Code(s): K 59.00 - Constipation, unspecified Status: Acute (4) Acute proctitis: Status: Acute (5) Fecal impaction: Status: Acute Plan An 79-year-old female with a PMH of chronic constipation, COPD with chronic hypoxic respiratory failure on 2 L O2 at baseline, hypertension, hyperlipidemia, hypothyroidism, GERD/Ford?s esophagus, IBS, epilepsy, cognitive impairment, osteoarthritis, and gait instability presents from home with abdominal pain, constipation, and acute nausea/vomiting. ACute proctatis 2/2 Severe constipation and fecal impaction CT scan as reported No surgical signs , no clear signs of infection Hold on Antibiotics ; pending UA , received empirical Ceftriaxone dose Gentle hydration Start Laxatives: Miralax, Senna and Colace Target 1 BM every 2 days Acute hypernatremia, mild Na 146 gentle hydration , improve oral intake follow BMP Positive occult stool likely from manipulation and hx of UGIB Hb better than previous records by 3 gm monitor as she was evaluated by GI previously Dilated bile ducts reported again on CT scan likely due to cholecystectomy but dilation has increased from prior per surgery team last admission, recommended MRCP which can be order as outpt at time of discharge Seizure disorder stable and well compensated continue Keppra Chronic hypoxic respiratory failure 2/2 COPD on 2-3L O2 at home Continue home meds PENDING MED REC DVT PPx SCDs given reported melena Quality Stroke Does the patient have a stroke diagnosis?: No VTE Prior VTE?: No VTE Risk Level:: Medical - moderate - high VTE Device Contraindication: N/A - Device Ordered VTE Drug Contraindication: Treatment Not Indicated
[2025-03-21] MEDS: Lactated Ringers 1,000 ML 100 ML IVCONT ×2 (04:03→13:03)
[2025-03-21 04:59] LABS: Anion Gap 16 (12-20); Blood Urea Nitrogen 15 mg/dL (9-16); Calcium 8.9 mg/dL (8.4-10.2); Carbon Dioxide 25 mmol/L (22-29); Chloride 105 mmol/L (96-108); Creatinine Clr Calc Pharmacy 38.6; Estimated Glomerular Filt Rate > 60; Potassium 5.2 mmol/L (3.3-5.1); Sodium 141 mmol/L (135-145)
--- NOTE | 2025-03-21 11:03 | PC.NURSE ---
pt incontinent of large amount of urine. She is able to roll in bed independently for cleaning and repositioning
--- NOTE | 2025-03-21 11:19 | PHA.MEDREC ---
Pharmacy Consult ? Medication Reconciliation Pharmacy has completed the medication reconciliation. Tried to talk to patient but she didn't remember much and wanted us to call son Alexander. I called and spoke to Alexander [phone] via phone to confirm medication list. He confirmed she takes amlodipine 5 mg daily, memantine 10 mg at bedtime, omeprazole 40 mg once a day at bedtime, senna plus 2 tablets daily and vitamin D3 1000iu daily. He doesn't see any bottle for lisinopril nor sucralfate. He also said patient is not compliant with her medications so last dose is unknown.
--- NOTE | 2025-03-21 12:18 | PM.EVENT ---
Event Note Date of Service: 03/21/25 Event Note: 79-year-old female with a PMH of chronic constipation, COPD with chronic hypoxic respiratory failure on 2 L O2 at baseline, hypertension, hyperlipidemia, hypothyroidism, GERD/Ford?s esophagus, IBS, epilepsy, cognitive impairment, osteoarthritis, and gait instability presented from home with abdominal pain, constipation, and acute nausea/vomiting. Acute proctitis 2/2 Severe constipation and fecal impaction Hold on Antibiotics ; pending UA , received empirical Ceftriaxone dose Gentle hydration Start Laxatives: Miralax, Senna and Colace Target 1 BM every 2 days hyperkalemia mild 5.2 monitor Acute hypernatremia, mild. Resolved Na 141 gentle hydration follow BMP Positive occult stool likely from manipulation and hx of UGIB Hb better than previous records by 3 gm monitor as she was evaluated by GI previously Dilated bile ducts reported again on CT scan likely due to cholecystectomy but dilation has increased from prior per surgery team last admission recommended MRCP which can be order as outpt at time of discharge Seizure disorder stable and well compensated continue Keppra Chronic hypoxic respiratory failure 2/2 COPD on 2-3L O2 at home Continue home meds DVT PPx SCDs given reported melena Time Spent With Patient Time: Total time managing care of this patient today ____ minutes.
[2025-03-21 13:26] LABS: Appearance Urine Cloudy; Glucose Urine UA Negative (Negative); PH 7.0 (5.0-9.0); Specific Gravity - Urine >= 1.030 (1.005-1.025); UMIC TRIGGER UACC YES
[2025-03-21 13:31] LABS: UACC Culture Trigger YES
--- NOTE | 2025-03-21 14:55 | HO.WOUND ---
Wound Consult: Initial 79 yr old female admitted to [facility] [place] on 03/21/25 - See progress notes and H&P for detailed history. Wound consult placed for upper back. Patient agreeable to assessment and photo documentation. Patient with fecal incontinence. Back Etiology: unknown- dry raised brown/black lesions - not pressure related - recommend outpatient follow up with dermatology Wound Bed: dry brown/black raised Drainage / Odor: none Audra wound: ? No Induration, Fluctuance or Warmth noted Pain: none- reports itch at times Goals of Treatment: ? leave open to air - no treatment recommendations at this time Buttocks/coccyx Etiology: coccyx stage 1 pressure injury Present on Admission Wound Bed: intact nonblanching redness Drainage / Odor: none? Audra wound: ? No Induration, Fluctuance or Warmth noted - mirrored hyperpigmentation/pale purple to gluteal fold - patient with fecal incontinence Goals of Treatment: ? foam or triad Recommendations: 1. Turn and Reposition every 2 hours and as needed for patient comfort. Use pillows or wedges to support off loading positions. 2. Off Load all bony prominences with use of pillows and heel boots if needed. Apply Preventative foams where needed. 3. Use waffle cushion when up to chair, limit sitting times to 1-2 hours 3. Monitor for incontinence and moisture control, use barrier creams when needed for prevention and treatment. 4. Provide adequate and supplemental nutrition. 5. Order or Continue low air loss mattress. 6. When applicable maintain blood glucose levels per Providers order. Coccyx: Off Load Pressure with Q2 hr turns and use of pillows - Routine cleansing. Apply skin prep allow to dry. Cover with foam dressing to aid in off loading and protection from friction. Change every 3 days and PRN. If changing foam greater than daily due to incontinence, switch to triad paste daily and PRN Re-consult wound care Nurse for wound deterioration or wound changes.
[2025-03-22 03:16] VITALS: BP 136/64; PULSE 64; RESP 16; TEMP 36; O2SAT 93
[2025-03-22 07:45] VITALS: BP 154/68; PULSE 65; RESP 16; TEMP 36.3; O2SAT 97
[2025-03-22 07:58] VITALS: BP 140/60
[2025-03-22] MEDS: 0.9 % Sodium Chloride Flush 3 ML SYRINGE IVFLUSH (08:56)
--- NOTE | 2025-03-22 10:53 | P.DS_ITS ---
DS: Providers Provider Date of admission: 03/21/25 02:56 Date of discharge: 03/22/25 Primary care physician: Shane Nelson MD Consults: 03/21/25 12:22 Consult to Wound Care Routine Consulting Provider: [facility] [place] [facility] Reason for consultation: ? Pressure on Mid upper back? 03/22/25 04:09 Consult to Wound Care Routine Consulting Provider: [facility] [place] [facility] Reason for consultation: PI to upper mid back on spinal bony prominences. DS: Diagnosis Discharge Diagnosis (1) GERD (gastroesophageal reflux disease): Status: Acute (2) Intractable vomiting: Status: Acute (3) Constipation: Status: Acute (4) Acute proctitis: Status: Acute (5) Fecal impaction: Status: Acute DS: Summary Hospital Course Hospital Course: History and physical as per admitting provider. An 79-year-old female with a PMH of chronic constipation, COPD with chronic hypoxic respiratory failure on 2 L O2 at baseline, hypertension, hyperlipidemia, hypothyroidism, GERD/Ford?s esophagus, IBS, epilepsy, cognitive impairment, osteoarthritis, and gait instability presents from home with abdominal pain, constipation, and acute nausea/vomiting. The patient reports no bowel movement for 4 days, with onset of nausea and vomiting earlier today. She denies abdominal distention, inability to pass flatus, or fever. In the emergency department, she was noted to have large- volume melena on rectal examination. She is a limited historian.CT abdomen/pelvis demonstrated recurrent proctitis with significant fecal burden. Manual rectal disimpaction was performed in the ED with evacuation of copious stool. There was stool contamination in the perineal and vaginal region, raising concern for a possible concurrent urinary tract infection; urine studies are pending. She was started empirically on ceftriaxone and metronidazole. She has remained hemodynamically stable and afebrile. Laboratory evaluation showed a lactate of 0.7 mmol/L and stable hemoglobin/hematocrit at 12.3 / 39.7, unchanged on repeat testing. Of note, the patient was hospitalized approximately two months ago for similar symptoms including constipation, nausea, hematemesis, melena, and hematochezia. During that admission, she underwent EGD and colonoscopy to the cecum (01/31/2025). EGD revealed multiple non-bleeding duodenal AVMs and a small hiatal hernia without esophagitis. Colonoscopy showed sigmoid diverticulosis and mild rectal erythema felt to be secondary to constipation and enemas; biopsies were obtained, and no active proctitis, AVMs, or polyps were identified. She was treated with ceftriaxone for presumed proctitis, transitioned to oral PPI, received IV iron, and was discharged in stable condition with GI follow-up. Given recurrent proctitis, fecal impaction, melena, and inability to safely manage symptoms outpatient, she is being admitted for further management, bowel regimen optimization, infection evaluation, and monitoring. Acute proctitis 2/2 Severe constipation and fecal impaction Started Laxatives: Miralax, Senna and Colace Target 1 BM every 2 days Hyperkalemia. Resolved Acute hypernatremia, mild. Resolved Positive occult stool , likely from manipulation and hx of UGIB Dilated bile ducts reported again on CT scan likely due to cholecystectomy but dilation has increased from prior per surgery team last admission recommended MRCP which can be order as outpt at time of discharge Seizure disorder, stable and well compensated, continue Keppra Chronic hypoxic respiratory failure 2/2 COPD on 2-3L O2 at home, Continue home meds Time Attestation Discharge Coordination Time (in mins): 42 Quality: Safe Use of Opioids Does Pt have an Active Cancer Diagnosis on the Problem List?: No Quality: Stroke Does the patient have a stroke diagnosis?: No Physical Exam Exam: Exam: Appearing in no acute distress head is normocephalic atraumatic eyes pupils are PERRLA sclera is anicteric mouth throat mucous membranes are intact and moist neck is supple no lymphadenopathy, no JVD noted lung sounds are clear to auscultation heart regular rate rhythm, clear S1, S2 positive bowel sounds, abdomen is soft, nontender neuro patient is alert x3, no focal deficits Vital Signs: Vital Signs: Last Vital Signs Temp 97.4 F 03/22/25 07:45 Pulse 65 03/22/25 07:45 Resp 16 03/22/25 07:45 BP 140/60 H 03/22/25 07:58 Pulse Ox 97 03/22/25 07:45 O2 Del Method Nasal Cannula 03/22/25 07:45 O2 Flow Rate 3 03/22/25 07:45 Oxygen Flow Rate 3 03/20/25 17:02 BMI result Body Mass Index 16.3 DS: Data Data Completed and Pending Completed studies during hospitalization [Text1]: Procedures Excision of Rectum, Via Natural or Artificial Opening Endoscopic, Diagnostic (01/27/25) Excision of Stomach, Via Natural or Artificial Opening Endoscopic, Diagnostic (12/25/24) Inspection of Upper Intestinal Tract, Via Natural or Artificial Opening Endoscopic (01/27/25) Labs on day of discharge: Laboratory Results - last 24 hr 03/21/25 13:08 Urine Color Yellow Urine Appearance Cloudy Urine pH 7.0 Ur Specific [place] >= 1.030 H Urine Protein Trace Urine Glucose (UA) Negative Urine Ketones Negative Urine Blood Small (1+) H Urine Nitrite Negative Ur Leukocyte Esterase Moderate (2+) H Urine RBC 11-20 H Urine WBC >50 H Ur Squamous Epith Cells 0-2 Urine Bacteria None Seen Hyaline Casts 0-2 Preliminary micro results at discharge 03/21/25 Unknown Urine Culture - Preliminary Urine clean catch - Clean Catch Midstream No growth to date. 03/20/25 22:46 Blood Culture - Preliminary Blood - Venous No growth after 24 hours. 03/20/25 22:40 Blood Culture - Preliminary Blood - Venous No growth after 24 hours. Discharge Plan Discharge Anticipated Discharge Date/Time: 03/22/25 10:50 Patient Disposition: Home, Self-Care Discharge Diagnosis: Constipation Referrals: Po,Shane Miller MD [Primary Care Provider, Internal Medicine] - 1 Week Discharge Medications: Continued cetirizine 10 mg capsule 10 mg PO BEDTIME Qty: 90 3RF sertraline 50 mg tablet 50 mg PO DAILY Qty: 90 1RF levetiracetam 500 mg tablet 500 mg PO Q12H 90 Days Qty: 180 0RF simvastatin 20 mg tablet 20 mg PO BEDTIME 90 Days Qty: 90 2RF levothyroxine 112 mcg tablet 112 mcg PO DAILY@0600 Qty: 90 0RF diphenoxylate-atropine 2.5-0.025 mg tablet 1 - 2 tab PO BID PRN (Reason: Diarrhea) omeprazole 40 mg capsule,delayed release(DR/EC) 40 mg PO BEDTIME Patient Comments: Son Kendrick confirmed BID memantine 10 mg tablet 10 mg PO BEDTIME ferrous sulfate 324 mg (65 mg iron) Tablet,Delayed Release (Dr/Ec) 324 mg PO DAILY Qty: 30 0RF sennosides-docusate sodium [Senna Plus] 8.6-50 mg tablet 2 tab PO DAILY amlodipine 10 mg tablet 5 mg PO DAILY Protocol: Hold for SBP< HOLD for SBP < : 90 cholecalciferol (vitamin D3) [Vitamin D3] 25 mcg (1,000 unit) Tablet 25 mcg PO DAILY (DME) blood pressure monitor [Blood Pressure Kit] Kit See Rx Instructions .ROUTE .MEDSUPPLY Qty: 1 0RF Rx Instructions: As directed (DME) POCKET CHAMBER Spacer See Rx Instructions .Route Qty: 1 0RF Rx Instructions: As directed Discharge Orders: Discharge Order (Routine); Ordered 03/22/25 Ordered By: Brenda Bloom Diet: Advance to usual diet Activity on Discharge: As tolerated Stand Alone Forms: Patient Portal Discharge page Print Language: Bengali Care Plan Goals: Continue bowel regimen at home Health Concerns: Constipation Plan of Treatment: Follow up with primary care provider as needed Take all medications as prescribed Assessment: See discharge summary
[2025-03-22 12:06] VITALS: BMI 17.9
[2025-03-22 12:15] LABS: Potassium 3.9 mmol/L (3.3-5.1)
--- NOTE | 2025-03-22 12:15 | MHC.CLN ---
CONSULT PT IS MODERATELY MALNOURISHED-QUALIFIES FOR NON-SEVERE MALNUTRITION IN THE CONTEXT OF CHRONIC ILLNESS PT WITH MILDLY DEPLETED SUBCUTANEOUS FAT AND MUSCLE MASS WITH 15% SIGNIFICANT WT LOSS X 6 MONTHS HT USED FOR ADMISSION 5'1 FROM ALL PREVIOUS ADMISSIONS PO INTAKE 75, 100% X2 MEALS DIET RX: 2GM NA -PT MAY BENEFIT FROM HIGH FIBER DIET AND LIBERALIZED DIET R/T ADVANCED AGE TO INCREASE PO RECOMMEND ADDING ENSURE BID TO INCREASE KCALS SUPP TO PROVIDE 700KCALS, 40G PROTEIN MONITOR PO INTAKE AND ENCOURAGE SUPPLEMENTS SEE FULL ASSESSMENT
--- NOTE | 2025-03-22 12:42 | MHC.CM.PN ---
Addendum entered by Aruna Allen RN 03/22/25 13:00: Patient medically cleared for dc home w/ resumption of services and family support. Reviewed w/ son, Alexander. Grandson, Rubin, will provide transport home. RN aware. Original Note: [facility] delivered. Patient lives in a home w/ her son, daughter in law, and 2 adult grandchildren. Mostly independent w/ ADL's. Granddaughter assists PRN when patient is feeling weak. Ambulates w/ cane and walker at times. 2L home O2 - she is unsure of supplier. Active w/ [facility] for PT/SN. DP: PT rec STR. Patient does not have QHS. Reviewed w/ patient who does not wish to go to rehab, and prefers to return home w/ family support and resumption of [facility]. [employer]ER aware. Family transport. CM will continue to follow.
--- NOTE | 2025-03-22 14:42 | HO.WOUND ---
Wound Consult: Initial 79 yr old female admitted to [facility] [place] on 03/21/25 - See progress notes and H&P for detailed history. Wound consult placed for upper back. Patient agreeable to assessment and photo documentation. Patient with fecal incontinence. Of note the patient was seen yesterday by inpatient wound care team but new consult placed for concerns PI to upper back on spinal bony prominences . Today assessment is unchanged from yesterday. The back is noted for a dry darkly pigmented lesion of unclear etiology but not consistent with pressure. Would recommend outpt follow up with dermatology for etiology and or biopsy. No topical recommendations needed at this time for the back - Buttock assessed today for MASD - continue to treat with barrier cream. Details from yesterdays assessment: Back Etiology: unknown- dry raised brown/black lesions - not pressure related - recommend outpatient follow up with dermatology Wound Bed: dry brown/black raised Drainage / Odor: none Audra wound: ? No Induration, Fluctuance or Warmth noted Pain: none- reports itch at times Goals of Treatment: ? leave open to air - no treatment recommendations at this time Buttocks/coccyx Etiology: coccyx stage 1 pressure injury Present on Admission Wound Bed: intact nonblanching redness Drainage / Odor: none? Audra wound: ? No Induration, Fluctuance or Warmth noted - mirrored hyperpigmentation/pale purple to gluteal fold - patient with fecal incontinence Goals of Treatment: ? foam or triad Recommendations: 1. Turn and Reposition every 2 hours and as needed for patient comfort. Use pillows or wedges to support off loading positions. 2. Off Load all bony prominences with use of pillows and heel boots if needed. Apply Preventative foams where needed. 3. Use waffle cushion when up to chair, limit sitting times to 1-2 hours 3. Monitor for incontinence and moisture control, use barrier creams when needed for prevention and treatment. 4. Provide adequate and supplemental nutrition. 5. Order or Continue low air loss mattress. 6. When applicable maintain blood glucose levels per Providers order. Coccyx: Off Load Pressure with Q2 hr turns and use of pillows - Routine cleansing. Apply skin prep allow to dry. Cover with foam dressing to aid in off loading and protection from friction. Change every 3 days and PRN. If changing foam greater than daily due to incontinence, switch to triad paste daily and PRN Re-consult wound care Nurse for wound deterioration or wound changes.
[2025-03-22 15:34] VITALS: BP 158/72; PULSE 62; RESP 18; TEMP 36.1; O2SAT 99
== END 2025-03-22 16:22 | disposition home health service (06) ==
LOC: HO.ED 03-21 02:09 → HO.EDOVER 03-21 03:17 → HO.S3 03-21 09:55
PROVIDERS: Physician Assistant Medical; Admitting Provider Student in an Organized Health Care Education/Training Program; Emergency Provider Emergency Medicine; PCP Internal Medicine; Visit Provider Nurse Practitioner Acute Care
DX: K59.00 Constipation, unspecified (principal); K21.9 Gastro-esophageal reflux disease without esophagitis; K22.70 Barrett's esophagus without dysplasia; R11.10 Vomiting, unspecified; K62.89 Other specified diseases of anus and rectum; R10.9 Unspecified abdominal pain; I10 Essential (primary) hypertension; E78.5 Hyperlipidemia, unspecified; J44.9 Chronic obstructive pulmonary disease, unspecified; Z03.818 Encounter for observation for suspected exposure to other biological agents ruled out; R94.31 Abnormal electrocardiogram [ECG] [EKG]; Z99.81 Dependence on supplemental oxygen; Z79.899 Other long term (current) drug therapy; Z87.891 Personal history of nicotine dependence
CPT/HCPCS: 36415; 74018; 74177; 80048; 80053; 81001; 82272; 83605; 83690; 83735; 84132; 85014; 85018; 85025; 87040; 87086; 87637; 93005; 96361; 96365; 96368; 96375; 97162; 97530; 99221; 99285; J0696; J1836; J2470; J2765; J7120; Q9967

== ENCOUNTER → 2025-03-20 17:05 | Outpatient (BNV) | payer MEDICARE, SELFPAY | PROVIDERS: PCP Internal Medicine; Visit Provider Radiology Diagnostic Radiology | DX: R11.11 Vomiting without nausea (principal); K59.00 Constipation, unspecified | CPT/HCPCS: 74018 ==

== ENCOUNTER → 2025-03-20 17:19 | Outpatient (BNV) | payer MEDICARE, SELFPAY | PROVIDERS: Admitting Provider Student in an Organized Health Care Education/Training Program; Emergency Provider Emergency Medicine; PCP Internal Medicine; Visit Provider Internal Medicine Cardiovascular Disease | DX: R94.31 Abnormal electrocardiogram [ECG] [EKG] (principal); R10.9 Unspecified abdominal pain | CPT/HCPCS: 93010 ==

== ENCOUNTER → 2025-03-21 02:56 | Outpatient (BNV) | payer MEDICARE, SELFPAY | PROVIDERS: Admitting Provider Student in an Organized Health Care Education/Training Program; Emergency Provider Emergency Medicine; PCP Internal Medicine; Visit Provider Student in an Organized Health Care Education/Training Program | DX: K21.9 Gastro-esophageal reflux disease without esophagitis (principal); R11.10 Vomiting, unspecified; K59.00 Constipation, unspecified; K62.89 Other specified diseases of anus and rectum; K56.41 Fecal impaction | CPT/HCPCS: 99222; 99239; 99499 ==